=== PATIENT | female | born 1970 | race Caucasian/White ===

== ENCOUNTER → 2020-07-21 09:03 | Outpatient (BNVA) | payer OTHER, SELFPAY | PROVIDERS: PCP Internal Medicine; Referring Provider Internal Medicine; Visit Provider Nurse Practitioner | DX: K58.9 Irritable bowel syndrome, unspecified (principal); R14.0 Abdominal distension (gaseous); R10.13 Epigastric pain; M47.814 Spondylosis without myelopathy or radiculopathy, thoracic region; Z85.09 Personal history of malignant neoplasm of other digestive organs | CPT/HCPCS: 99214 ==

== ENCOUNTER → 2020-07-29 11:26 | Outpatient (BNVA) | payer OTHER, SELFPAY | PROVIDERS: Visit Provider Surgery | DX: Z80.3 Family history of malignant neoplasm of breast (principal) | CPT/HCPCS: 99203 ==

== ENCOUNTER 2020-08-08 11:00 | Outpatient (RCR) | payer OTHER, SELFPAY ==
--- NOTE | 2020-07-30 16:55 | MHC.PT.DC ---
[facility] [place] Office [place] [facility] [place] Office [address] Chloe Monteiro 140 [facility] [phone] F: [phone] F: [phone] F: [phone] F: [phone] Physical Therapy Discharge Report Diagnosis: neck pain Date of Surgery: N/A Date of Evaluation: 07/30/20 Date of Discharge: Treatments to Date: 1 Cancellations to Date: 0 No Shows to Date: 0 Discharge Status: Discharge Summary: pt presents to physical therapy with pain, decreased range of motion, decreased strength, impaired functional mobility, and impaired postural awareness. pt is a good candidate for skilled PT due to age, potential remediation of impairments, typical disease/condition progression and prognosis, comorbidities, and motivation. pt would benefit from tailored strengthening and stretching exercise program, functional training, postural re-training, neuromuscular re-education, and modalities as needed for pain. Electronically signed by: Sirisha Trejo PT, DPT Please sign and return to therapist. Thank you for your referral.
--- NOTE | 2020-08-22 08:45 | MHC.PT.DC ---
[facility] [place] Office [place] Office [place] Office [address] Gabi Monteiro 140 [facility] [phone] F: [phone] F: [phone] F: [phone] F: [phone] Physical Therapy Discharge Report Diagnosis: neck pain Date of Surgery: N/A Date of Evaluation: 07/30/20 Date of Discharge: 08/22/20 Treatments to Date: 3 Cancellations to Date: 2 No Shows to Date: 1 Discharge Status: Visit Non-compliance Discharge Summary: The patient was responding to repeated cervical retractions to address her radicular symptoms. She was also reporting a sense of instability and was shown how to perform isometrics to promote neck strengthening. She was educated extensively regarding postural adjustments, importance of compliance with HEP to reduce radicular symptoms, and lifestyle modifications to reduce pain. She has not made any further appointments to follow-up with this physical therapy plan of care in two weeks. She is discharged from this physical therapy plan of care for non-compliance. Electronically signed by: Sirisha Trejo PT, DPT Please sign and return to therapist. Thank you for your referral.
== END 2020-08-22 08:46 | disposition other institution (70) ==
LOC: HO.PT 11:00
PROVIDERS: PCP Internal Medicine; Visit Provider Internal Medicine
DX: M54.2 Cervicalgia (principal)
CPT/HCPCS: 97110; 97140; 97161

== ENCOUNTER 2020-08-14 05:34 | Emergency (ER) | payer OTHER, SELFPAY ==
--- NOTE | 2020-08-14 | ECG_ITS ---
Test Reason : PALPATATIONS Blood Pressure : / mmHG Vent. Rate : 089 BPM Atrial Rate : 089 BPM P-R Int : 138 ms QRS Dur : 072 ms QT Int : 406 ms P-R-T Axes : 063 026 046 degrees QTc Int : 493 ms Normal sinus rhythm Low voltage QRS Abnormal ECG No previous ECGs available Referred By: Kathi Bob Electronically Signed By:LYNNETTE TORRES MD
[2020-08-14 05:37] VITALS: BP 140/85; PULSE 109; RESP 20; TEMP 36.1; O2SAT 97; BMI 32.3
--- NOTE | 2020-08-14 05:59 | PC.NURSE ---
PT REPORTS 2 YEARS SOBRIETY- BEGAN BINGE DRINKING TUESDAY. LAST DRINK 1800 LAST NIGHT. REPORTS N/V. NO OBVIOUS TREMORS NOTED. CHANGING INTO HOSPITAL ATTIRE, AWAITING MD PRIMARY EVAL.
--- NOTE | 2020-08-14 06:35 | ED.ARRPALP ---
HPI - Arrhythmia/Palpitations General Chief Complaint: Arrhythmia/Palpitations Stated Complaint: Palpitations Time Seen by Provider: 08/14/20 06:34 Source: patient Mode of arrival: ambulatory Limitations: no limitations History of Present Illness MD complaint: rapid heart beat, heart racing and palpitations Onset (ago): day(s) (1) Duration: constant Severity: moderate Context: occurred during rest, occurred during exertion and other (always occurs after ETOH binge) Associated symptoms: nausea, anxiety and muscle cramps Related Data Home Medications Medication Instructions Recorded Confirmed Bifidobacterium infantis 4 mg 4 mg PO DAILY 07/18/20 07/29/20 capsule simethicone 250 mg capsule 250 mg PO BID PRN 07/18/20 07/29/20 Previous Rx's Medication Instructions Recorded fluoxetine 20 mg capsule 20 mg PO DAILY #30 cap 07/11/20 lorazepam 1 mg tablet 1 mg PO Q12H PRN 30 Days #60 tab 07/17/20 dicyclomine 10 mg capsule 10 mg PO QID 30 Days #120 cap 07/21/20 omeprazole 40 mg capsule,delayed 40 mg PO DAILY 30 Days #30 cap 07/21/20 release sucralfate 1 gram tablet 1 g PO BID 30 Days #60 tab 07/21/20 cyclobenzaprine 10 mg tablet 10 mg PO TID PRN 30 Days #90 cap 08/07/20 chlordiazepoxide HCl 50 mg PO Q6-8H PRN #14 cap 08/14/20 ondansetron 4 mg PO Q8H PRN #20 tab 08/14/20 Allergies Allergy/AdvReac Type Severity Reaction Status Date / Time morphine Allergy Unknown withdrawals Verified 07/29/20 11:43 /sweats Review of Systems Review of Systems: Constitutional : No Fever, No Chills ENT/Mouth : No sore throat, No Rhinorrhea, No Swallowing Difficulty Eyes: No Eye Pain, No Swelling, No Redness Cardiovascular : No Chest Pain, no SOB, No Orthopnea, no Edema Respiratory : No Cough, No Sputum, No Wheezing, no dyspnea Gastrointestinal : No Nausea, No Vomiting, No Diarrhea, No abdominal Pain, No Hematochezia, No Melena Genitourinary : No Dysuria, No Urinary Frequency, No Hematuria Musculoskeletal : No joint pain, No Myalgias Skin : No Skin Lesions, No rash Neuro : No Weakness, No Numbness, No Dizziness, No Headache Psych : pos Anxiety/Panic, No Depression Heme/Lymph: No Bruising, No Lymphadenopathy Endocrine : No Polyuria, No Polydipsia All other systems reviewed and are negative [facility] Past Medical History Attestation statement: The following information was validated with the patient. Medical History Bipolar 1 disorder Depression Family history of breast cancer Surgical History Hx of section Hx of colonoscopy Hx of endoscopy Hx of gastrostomy (~04/2002) Family History Family History (Updated 07/29/20 @ 12:06 by Vicky Schroeder MD) Father Esophagus cancer, Onset Age: 63 Mother Breast cancer, Onset Age: 46 Maternal Grandfather Cancer Paternal Aunt Breast cancer Maternal Aunt Breast cancer Social History Social History Alcohol intake: current Alcohol intake frequency: does not drink Alcohol type: wine and hard liquor Smoking Status: Light tobacco smoker Tobacco Type: Cigarette Use of substances other than those prescribed or required for medical reasons: No Advance Directives: No Advance Directives Information Provided: No Physical Exam Vital Signs: Vital Signs: Last Vital Signs Temp 97.0 F 08/14/20 05:37 Pulse 85 08/14/20 07:31 Resp 16 08/14/20 07:31 BP 130/72 08/14/20 07:31 Pulse Ox 99 08/14/20 07:31 Body Mass Index 32.3 Appearance: Alert. Oriented X3. No acute distress. Anxiety Eyes: Pupils equal, round and reactive to light. ENT: Pharynx normal. Neck: Normal inspection. Neck supple. CVS: Normal heart rate and rhythm. Pulses normal. Respiratory: No respiratory distress. Breath sounds normal. Abdomen: Soft and nontender. Skin: Skin warm and dry. Normal skin color. Normal skin turgor. Extremities: No lower extremity edema. No calf ttp Neuro: Oriented X 3. No motor deficit. No sensory deficit. Course Course Course Narrative: stable labs and VS - can be DC MDM - Arrhythmia/Palpitations MDM Narrative Medical decision making narrative: 50 yo female with hx of ETOH, anxiety, GERD - here after 4 days of ETOH binge and typically has palpitations and anxiety when she is coming off ETOH - this is a chronic complaint she is not toxic, will obtain basic labs, EKG, hydrate, ativan I do not suspect ACS/PE she has had this complaints for years with ETOH and today's presentation is no different Lab Data Result diagrams: 08/14/20 07:21 08/14/20 07:21 Labs: Lab Results 08/14/20 08/14/20 Range/Units 07:21 07:21 WBC 10.1 (4.8-10.8) X10*3/uL RBC 4.29 (4.20-5.50) X10*6/uL Hgb 11.8 L (12.0-16.0) g/dl Hct 35.5 L (37-47) % MCV 82.8 (80-98) fL MCH 27.5 (27.0-33.0) pg MCHC 33.2 (31.0-35.0) g/dl RDW 15.5 (11.0-16.0) % Plt Count 341 (160-400) X10*3/uL MPV 9.3 L (9.4-12.3) fL Immature Gran % (Auto) 0.3 (0.0-0.4) % Neut % (Auto) 75.2 H (45-73) % Lymph % (Auto) 18.2 L (20-40) % [place] % (Auto) 5.6 (2-11) % Eos % (Auto) 0.1 (0-4) % Baso % (Auto) 0.6 (0-2) % Lymph # (Auto) 1.8 (1.2-4.9) X10*3/uL [place] # (Auto) 0.6 (0.1-1.2) X10*3/uL Eos # (Auto) 0.0 (0.0-0.4) X10*3/uL Baso # (Auto) 0.1 (0.0-0.2) X10*3/uL Abs Immat Gran (auto) 0.03 (0.00-0.03) X10*3/uL Absolute Neuts (auto) 7.6 (2.0-8.3) X10*3/uL Absolute Nucleated RBC 0.000 (0.0-0.012) X10*3/uL Nucleated RBC % (auto) 0.0 (0.0-0.2) /100WBC Sodium 137 (135-145) mmol/L Potassium 4.5 (3.3-5.1) mmol/l Chloride 99 (96-108) mmol/L Carbon Dioxide 28 (22-29) mmol/L Anion Gap 15 (12-20) BUN 7 L (9-16) mg/dL Creatinine 0.70 (0.5-1.4) mg/dL Estim Creat Clear Calc 109.1 Estimated GFR > 60 Random Glucose 104 (60-115) mg/dL Calcium 8.4 (8.4-10.2) mg/dL Magnesium 1.7 (1.6-2.6) mg/dL ECG Data Attestation: I personally reviewed and interpreted this ECG as follows: ECG interpretation date: 08/14/20 ECG interpretation time: 07:03 Interpretation: Rate: 89 Rhythm: NSR [place]: normal Normal P waves. Normal CODEY. Normal QRS complex. ST T wave : normal qTC: prolonged - mild prior studies: no change no acute ischemia The study has been interpreted contemporaneously by me. . Discharge Plan Discharge Clinical Impression: Anxiety, Heart palpitations, Alcohol abuse Patient Disposition: Home, Self-Care Instructions: Heart Palpitations (ED), Alcohol Withdrawal (ED) Additional Instructions: return to ED for any worsening symptoms or concerns STOP DRINKING Prescriptions: New ondansetron 4 mg tablet,disintegrating 4 mg PO Q8H PRN (Reason: nausea and vomiting) Qty: 20 RF: 0 chlordiazepoxide HCl 25 mg capsule 50 mg PO Q6-8H PRN (Reason: alcohol withdrawal) Qty: 14 RF: 0 No Action fluoxetine 20 mg capsule 20 mg PO DAILY Qty: 30 RF: 3 lorazepam 1 mg tablet 1 mg PO Q12H PRN (Reason: anxiety) 30 Days Qty: 60 RF: 0 cyclobenzaprine 10 mg tablet 10 mg PO TID PRN (Reason: muscle spasm) 30 Days Qty: 90 RF: 12 Gas Relief (simethicone) 250 mg capsule 250 mg PO BID PRNRF: 0 Align 4 mg capsule 4 mg PO DAILY RF: 0 sucralfate 1 gram tablet 1 g PO BID 30 Days Qty: 60 RF: 3 dicyclomine 10 mg capsule 10 mg PO QID 30 Days Qty: 120 RF: 3 omeprazole 40 mg capsule,delayed release(DR/EC) 40 mg PO DAILY 30 Days Qty: 30 RF: 3 Referrals: Vishal Brock MD [Primary Care Provider] - 2 days ( NEEDED)
[2020-08-14 07:26] LABS: MANUAL DIFF FLAG NO
[2020-08-14 07:29] LABS: Basophils Absolute Auto 0.1 X10*3/uL (0.0-0.2); Basophils Percent Auto 0.6 % (0-2); Eosinophils Percent Auto 0.1 % (0-4); Hematocrit 35.5 % (37-47); Hemoglobin 11.8 g/dl (12.0-16.0); Imm Gran Abs Auto 0.03 X10*3/uL (0.00-0.03); Imm Gran Pct Auto 0.3 % (0.0-0.4); Lymphocytes Absolute Auto 1.8 X10*3/uL (1.2-4.9); Lymphocytes Percent Auto 18.2 % (20-40); Mean Corpuscular HGB Conc 33.2 g/dl (31.0-35.0); Mean Corpuscular Hemoglobin 27.5 pg (27.0-33.0); Mean Corpuscular Volume 82.8 fL (80-98); Mean Platelet Volume 9.3 fL (9.4-12.3); Monocytes Absolute Auto 0.6 X10*3/uL (0.1-1.2); Monocytes Percent Auto 5.6 % (2-11); Neutrophils Absolute Auto 7.6 X10*3/uL (2.0-8.3); Neutrophils Percent Auto 75.2 % (45-73); Platelet Count 341 X10*3/uL (160-400); Red Blood Count 4.29 X10*6/uL (4.20-5.50); Red Cell Distribution Width 15.5 % (11.0-16.0); White Blood Count 10.1 X10*3/uL (4.8-10.8)
[2020-08-14] MEDS: ondansetron HCL 4 MG/2 ML VIAL IVPUSH (07:29)
[2020-08-14] MEDS: 0.9 % Sodium Chloride 1,000 ML 999 ML IVCONT (07:29)
[2020-08-14] MEDS: LORazepam 2 MG/ML VIAL 1 MG IVPUSH (07:30)
[2020-08-14 07:31] VITALS: BP 130/72; PULSE 85; RESP 16; O2SAT 99
[2020-08-14 07:32] VITALS: PULSE 85
[2020-08-14] MEDS: chlordiazePOXIDE HCl 25 MG CAPSULE PO (07:46)
[2020-08-14 07:55] LABS: Anion Gap 15 (12-20); Blood Urea Nitrogen 7 mg/dL (9-16); Calcium 8.4 mg/dL (8.4-10.2); Carbon Dioxide 28 mmol/L (22-29); Chloride 99 mmol/L (96-108); Creatinine Clr Calc Pharmacy 109.1; Estimated Glomerular Filt Rate > 60; Glucose Random 104 mg/dL (60-115); Magnesium 1.7 mg/dL (1.6-2.6); Potassium 4.5 mmol/l (3.3-5.1); Sodium 137 mmol/L (135-145)
[2020-08-14 08:19] VITALS: BP 124/84; PULSE 92; RESP 16; O2SAT 99
[2020-08-14] MEDS: Magnesium Oxide 400 MG TABLET PO (08:19)
== END 2020-08-14 09:23 | disposition home or self-care (01) ==
PROVIDERS: Emergency Provider Emergency Medicine; PCP Internal Medicine
DX: R00.2 Palpitations (principal); F10.10 Alcohol abuse, uncomplicated; F41.1 Generalized anxiety disorder; F43.0 Acute stress reaction; F17.210 Nicotine dependence, cigarettes, uncomplicated; Y90.9 Presence of alcohol in blood, level not specified; Z79.899 Other long term (current) drug therapy; Z71.6 Tobacco abuse counseling
CPT/HCPCS: 36415; 80048; 83735; 85025; 93005; 96361; 96374; 96375; 99284; 99285; J2060; J2405

== ENCOUNTER 2020-09-08 13:46 | Outpatient (REF) | payer OTHER, SELFPAY ==
--- NOTE | 2020-09-08 13:50 | XR_ITS ---
EXAMINATION: XR ELBOW, LEFT CLINICAL INFORMATION: Injury of left elbow COMPARISON: None TECHNIQUE: AP, lateral, and oblique views of the left elbow. FINDINGS: There is no fracture or dislocation. Alignment is anatomic. Joint spaces are maintained. No elbow joint effusion. The soft tissues are unremarkable. XR/XR elbow LT min 3V IMPRESSION: Normal appearance of the left elbow.
== END 2020-09-08 13:47 | disposition home or self-care (01) ==
LOC: HO.HMGCX 13:46
PROVIDERS: PCP Internal Medicine; Visit Provider Nurse Practitioner Family
DX: S59.902A Unspecified injury of left elbow, initial encounter (principal)
CPT/HCPCS: 73080

== ENCOUNTER 2020-09-19 19:20 | Emergency (ER) | payer OTHER, SELFPAY ==
[2020-09-19 19:29] VITALS: BP 123/77; PULSE 84; RESP 18; TEMP 36.8; O2SAT 98; BMI 32.3
--- NOTE | 2020-09-19 19:43 | XR_ITS ---
EXAMINATION: XR CHEST CLINICAL INFORMATION: Chest pain COMPARISON: 07/29/2018 TECHNIQUE: Frontal view of the chest was obtained. FINDINGS: Stable appearance of the cardiomediastinal silhouette. Multiple wires overlie the chest. There is no consolidation. No pleural effusion or pneumothorax. XR/XR chest 1V IMPRESSION: No acute cardiopulmonary process.
--- NOTE | 2020-09-19 19:43 | ECG_ITS ---
Test Reason : PALPITATIONS Blood Pressure : / mmHG Vent. Rate : 076 BPM Atrial Rate : 076 BPM P-R Int : 144 ms QRS Dur : 076 ms QT Int : 416 ms P-R-T Axes : 035 017 044 degrees QTc Int : 468 ms Normal sinus rhythm Low voltage QRS Cannot rule out Anterior infarct , age undetermined Abnormal ECG When compared with ECG of 14-AUG-2020 06:09, No significant change was found Referred By: Aleida Hunt Electronically Signed By:Dennis Manuel
--- NOTE | 2020-09-19 19:51 | ED.CHESTPAIN ---
HPI - Chest Pain General Chief Complaint: Chest Pain Stated Complaint: chest pain Time Seen by Provider: 09/19/20 19:43 Source: patient Mode of arrival: ambulatory Limitations: no limitations History of Present Illness HPI narrative: 50-year-old female with past medical history of GERD, IBS, GIST, depression and anxiety presents with substernal chest pain and epigastric pain for the past 3 days. She is being treated for UTI with Bactrim, and states that the symptoms started to get worse after taking Bactrim medication. She does not report any palpitations, abdominal distention, dysuria, hematuria, fevers, chills, weakness, lightheadedness, and edema. MD complaint: chest pain Onset (ago): day(s) (3) Timing of current episode: episodic Onset: during rest Pain location: substernal Pain radiation: none Severity: moderate Quality: sharp Relieving factors: nothing Exacerbating factors: nothing Context: recent illness (UTI) Risk Factors Coronary artery disease risk factors: none Thoracic aortic dissection risk factors: none Related Data On Oral Contraceptives: No Home Medications Medication Instructions Recorded Confirmed Bifidobacterium infantis 4 mg 4 mg PO DAILY 07/18/20 07/29/20 capsule simethicone 250 mg capsule 250 mg PO BID PRN 07/18/20 07/29/20 lorazepam 1 mg tablet 1 mg PO Q12H PRN tab 08/18/20 cholecalciferol (vitamin D3) 25 25 mcg PO DAILY 09/08/20 mcg (1,000 unit) tablet magnesium oxide 500 mg tablet 500 mg PO DAILY 09/08/20 metoprolol succinate 50 mg 50 mg PO DAILY 09/08/20 tablet,extended release 24 hr Previous Rx's Medication Instructions Recorded fluoxetine 20 mg capsule 20 mg PO DAILY #30 cap 07/11/20 dicyclomine 10 mg capsule 10 mg PO QID 30 Days #120 cap 07/21/20 omeprazole 40 mg capsule,delayed 40 mg PO DAILY 30 Days #30 cap 07/21/20 release sucralfate 1 gram tablet 1 g PO BID 30 Days #60 tab 07/21/20 cyclobenzaprine 10 mg tablet 10 mg PO TID PRN 30 Days #90 cap 08/07/20 chlordiazepoxide HCl 50 mg PO Q6-8H PRN #14 cap 08/14/20 ondansetron 4 mg PO Q8H PRN #20 tab 08/14/20 lorazepam 1 mg tablet 1 mg PO Q12H PRN 30 Days #60 tab 08/18/20 prednisone 20 mg tablet 20 mg PO DAILY 9 Days #18 tab MDD 09/08/20 3 for 3days;2 for 3 days;1 3da phenazopyridine 100 mg tablet 100 mg PO TID PRN #6 tab 09/16/20 sulfamethoxazole 800 1 tab PO BID 7 Days #14 tab 09/16/20 mg-trimethoprim 160 mg tablet cephalexin [Keflex] 500 mg PO Q8H 5 Days #15 cap 09/19/20 Allergies Allergy/AdvReac Type Severity Reaction Status Date / Time morphine Allergy Unknown withdrawals Verified 09/19/20 19:26 /sweats Review of Systems Review of Systems: Constitutional: No Weight loss, No Fever, No Chills, No Night Sweats, No Fatigue, No Malaise ENT/Mouth: No Hearing loss, No Ear Pain, No Nasal Congestion, No Sinus Pain, No Hoarseness, No sore throat, No Rhinorrhea, No Swallowing Difficulty Eyes: No Eye Pain, No Swelling, No Redness, No Foreign Body, No Discharge, No Vision Changes Cardiovascular: pos Chest Pain, no SOB, no Dyspnea on Exertion, No Orthopnea, No Edema, No Palpitations Respiratory: No Cough, No Sputum, No Wheezing, No Smoke Exposure, No Dyspnea Gastrointestinal: No Nausea, No Vomiting, No Diarrhea, No abdominal Pain, No Hematochezia, No Melena Genitourinary: No irregular bleeding, No Dysuria, No Urinary Frequency, No Hematuria, No Urinary Incontinence, No Urgency, No Flank Pain, No Urinary Flow Changes, No Hesitancy Musculoskeletal: No joint pain, No Myalgias, No Joint Swelling Skin: No Skin Lesions, No rash Neuro: No Weakness, No Numbness, No Paresthesias, No Loss of Consciousness, No Dizziness, No Headache Psych: No Anxiety/Panic, No Depression, No SI/HI/AH/VH Heme/Lymph: No Bruising, No Bleeding,No Lymphadenopathy Endocrine: No Polyuria, No Polydipsia, No Temperature Intolerance Yes all other systems are reviewed and are negative PMFSH Past Medical History Attestation statement: The following information was validated with the patient. Medical History Bipolar 1 disorder Depression Family history of breast cancer Surgical History Hx of section Hx of colonoscopy Hx of endoscopy Hx of gastrostomy (~04/2002) Family History Family History Father Esophagus cancer, Onset Age: 63 Mother Breast cancer, Onset Age: 46 Maternal Grandfather Cancer Paternal Aunt Breast cancer Maternal Aunt Breast cancer Social History Social History Alcohol intake: current Alcohol intake frequency: does not drink Alcohol type: wine and hard liquor Smoking Status: Light tobacco smoker Tobacco Type: Cigarette Advance Directives: No Advance Directives Information Provided: No Physical Exam Vital Signs: Vital Signs: Last Vital Signs Temp 98.1 F 09/19/20 20:25 Pulse 74 09/19/20 20:25 Resp 20 09/19/20 20:25 BP 102/69 09/19/20 20:25 Pulse Ox 98 09/19/20 20:25 Body Mass Index 32.3 Appearance: Alert. Oriented X3. No acute distress. Eyes: Pupils equal, round and reactive to light. ENT: Pharynx normal. Neck: Normal inspection. Neck supple. CVS: Normal heart rate and rhythm. Pulses normal. Respiratory: No respiratory distress. Breath sounds normal. Abdomen: Soft and nontender. Skin: Skin warm and dry. Normal skin color. Normal skin turgor. Extremities: No lower extremity edema. Neuro: No motor deficit. No sensory deficit. Course Course Course Narrative: 50-year-old female presents with 3 days of chest pain that is substernal, intermittent and sharp. It is reproducible on palpation, plan of care is to rule out ACS. CBC and Chem 7 are normal, troponin is negative, patient requested something for anxiety. She does have known anxiety and has a prescription for Ativan. Urinalysis is negative she has been on Bactrim for a few days. Plan of care is to change out Bactrim to Keflex as she feels that symptoms could have started because of the abdominal distress from the Bactrim. Detailed discussion with patient regarding lab results, patient feels like it could be anxiety as well as the medications. She feels secure being discharged home, will follow up with primary care provider. Patient verbalized understanding of and agrees to plan of care discharge home. MDM - Chest Pain Differential Diagnosis Differential diagnosis: Likely pneumothorax, stable angina, atypical chest pain, st elevation myocardial infarction and chest pain Medical Records Data Attestation: I reviewed the patient's medical records. Lab Data Attestation: I reviewed the patient's lab results. Result diagrams: 09/19/20 20:19 09/19/20 20:18 Labs: Lab Results 09/19/20 09/19/20 09/19/20 Range/Units 20:18 20:18 20:18 WBC (4.8-10.8) X10*3/uL RBC (4.20-5.50) X10*6/uL Hgb (12.0-16.0) g/dl Hct (37-47) % MCV (80-98) fL MCH (27.0-33.0) pg MCHC (31.0-35.0) g/dl RDW (11.0-16.0) % Plt Count (160-400) X10*3/uL MPV (9.4-12.3) fL Immature Gran % (Auto) (0.0-0.4) % Neut % (Auto) (45-73) % Lymph % (Auto) (20-40) % [place] % (Auto) (2-11) % Eos % (Auto) (0-4) % Baso % (Auto) (0-2) % Lymph # (Auto) (1.2-4.9) X10*3/uL [place] # (Auto) (0.1-1.2) X10*3/uL Eos # (Auto) (0.0-0.4) X10*3/uL Baso # (Auto) (0.0-0.2) X10*3/uL Abs Immat Gran (auto) (0.00-0.03) X10*3/uL Absolute Neuts (auto) (2.0-8.3) X10*3/uL Absolute Nucleated RBC (0.0-0.012) X10*3/uL Nucleated RBC % (auto) (0.0-0.2) /100WBC Sodium Cancelled Potassium Cancelled Chloride Cancelled Carbon Dioxide Cancelled Anion Gap Cancelled BUN Cancelled Creatinine Cancelled Estim Creat Clear Calc Cancelled Estimated GFR Cancelled Random Glucose Cancelled Calcium Cancelled Magnesium Cancelled Troponin I High Sens < 3.5 (<3.5-17.0) ng/L Urine Color Urine Appearance Urine pH (5.0-8.0) Ur Specific [place] (1.005-1.025) Urine Protein (NEG-TRACE) MG/DL Urine Glucose (UA) (NEG) MG/DL Urine Ketones (NEG) MG/DL Urine Blood (NEG) Urine Nitrite (NEG) Ur Leukocyte Esterase (NEG) 09/19/20 09/19/20 Range/Units 20:19 20:30 WBC 7.9 (4.8-10.8) X10*3/uL RBC 3.81 L (4.20-5.50) X10*6/uL Hgb 10.4 L (12.0-16.0) g/dl Hct 31.3 L (37-47) % MCV 82.2 (80-98) fL MCH 27.3 (27.0-33.0) pg MCHC 33.2 (31.0-35.0) g/dl RDW 15.0 (11.0-16.0) % Plt Count 317 (160-400) X10*3/uL MPV 10.1 (9.4-12.3) fL Immature Gran % (Auto) 0.3 (0.0-0.4) % Neut % (Auto) 59.6 (45-73) % Lymph % (Auto) 31.1 (20-40) % [place] % (Auto) 7.0 (2-11) % Eos % (Auto) 1.4 (0-4) % Baso % (Auto) 0.6 (0-2) % Lymph # (Auto) 2.4 (1.2-4.9) X10*3/uL [place] # (Auto) 0.6 (0.1-1.2) X10*3/uL Eos # (Auto) 0.1 (0.0-0.4) X10*3/uL Baso # (Auto) 0.1 (0.0-0.2) X10*3/uL Abs Immat Gran (auto) 0.02 (0.00-0.03) X10*3/uL Absolute Neuts (auto) 4.7 (2.0-8.3) X10*3/uL Absolute Nucleated RBC 0.000 (0.0-0.012) X10*3/uL Nucleated RBC % (auto) 0.0 (0.0-0.2) /100WBC Sodium Potassium Chloride Carbon Dioxide Anion Gap BUN Creatinine Estim Creat Clear Calc Estimated GFR Random Glucose Calcium Magnesium Troponin I High Sens (<3.5-17.0) ng/L Urine Color YELLOW Urine Appearance CLEAR Urine pH 6.0 (5.0-8.0) Ur Specific [place] 1.020 (1.005-1.025) Urine Protein NEG (NEG-TRACE) MG/DL Urine Glucose (UA) NEG (NEG) MG/DL Urine Ketones NEG (NEG) MG/DL Urine Blood NEG (NEG) Urine Nitrite NEG (NEG) Ur Leukocyte Esterase NEG (NEG) Imaging Data Chest x-ray: Attestation: I personally reviewed and interpreted this imaging study as follows: Radiologist's impression: EXAMINATION: XR CHEST CLINICAL INFORMATION: Chest pain COMPARISON: 07/29/2018 TECHNIQUE: Frontal view of the chest was obtained. FINDINGS: Stable appearance of the cardiomediastinal silhouette. Multiple wires overlie the chest. There is no consolidation. No pleural effusion or pneumothorax. XR/XR chest 1V IMPRESSION: No acute cardiopulmonary process. ECG Data ECG #1: Attestation: I personally reviewed and interpreted this ECG as follows: ECG interpretation date: 09/19/20 ECG interpretation time: 19:44 Interpretation: Ventricular rate 76 beats per minute, P are 144, QRS 76, QTC 416, QTC 468, P-R-T axes 35 17 44, normal sinus rhythm, low-voltage QRS, cannot rule out anterior infarct age undetermined, abnormal EKG, when compared to prior EKGs no significant changes noted. Scores Heart Score History: -0- slightly suspicious ECG: -0- normal Age: -1- >45 - <65 Risk factory: -1- 1 or 2 risk factors Troponin: -0- < or = normal limit Score: 2 Risk: 1.7% Discharge Plan Discharge Clinical Impression: UTI (urinary tract infection), Chest pain Patient Disposition: Home, Self-Care Instructions: Adverse Drug Reaction (ED), Noncardiac Chest Pain (ED) Additional Instructions: You were evaluated for chest pain. EKG is normal, your troponins, which are cardiac enzymes, are negative. Please stop taking Bactrim. We prescribed Keflex. Please take the Keflex for 5 days for UTI that was discovered by prior provider. We are stopping the Bactrim because you believe you are having an adverse reaction to this medication Thank you for choosing this emergency department for evaluation. Please follow-up with primary care physician as needed. Return to the emergency department for any new, concerning, or worsening symptoms. Prescriptions: New cephalexin [Keflex] 500 mg capsule 500 mg PO Q8H 5 Days Qty: 15 RF: 0 No Action fluoxetine 20 mg capsule 20 mg PO DAILY Qty: 30 RF: 3 cyclobenzaprine 10 mg tablet 10 mg PO TID PRN (Reason: muscle spasm) 30 Days Qty: 90 RF: 12 lorazepam 1 mg tablet 1 mg PO Q12H PRNRF: 0 lorazepam 1 mg tablet 1 mg PO Q12H PRN (Reason: anxiety) 30 Days Qty: 60 RF: 0 sulfamethoxazole-trimethoprim [Bactrim DS] 800-160 mg tablet 1 tab PO BID 7 Days Qty: 14 RF: 0 phenazopyridine [Pyridium] 100 mg tablet 100 mg PO TID PRN (Reason: pain) Qty: 6 RF: 0 ondansetron 4 mg tablet,disintegrating 4 mg PO Q8H PRN (Reason: nausea and vomiting) Qty: 20 RF: 0 chlordiazepoxide HCl 25 mg capsule 50 mg PO Q6-8H PRN (Reason: alcohol withdrawal) Qty: 14 RF: 0 magnesium oxide 500 mg tablet 500 mg PO DAILY RF: 0 cholecalciferol (vitamin D3) 25 mcg (1,000 unit) tablet 25 mcg PO DAILY RF: 0 metoprolol succinate 50 mg tablet extended release 24 hr 50 mg PO DAILY RF: 0 prednisone 20 mg tablet 20 mg PO DAILY MDD 3 for 3days;2 for 3 days;1 3da 9 Days Qty: 18 RF: 0 Gas Relief (simethicone) 250 mg capsule 250 mg PO BID PRNRF: 0 Align 4 mg capsule 4 mg PO DAILY RF: 0 sucralfate 1 gram tablet 1 g PO BID 30 Days Qty: 60 RF: 3 dicyclomine 10 mg capsule 10 mg PO QID 30 Days Qty: 120 RF: 3 omeprazole 40 mg capsule,delayed release(DR/EC) 40 mg PO DAILY 30 Days Qty: 30 RF: 3 Interventions: ED Discharge Assessment Last Done: 09/19/20 22:27 Discharge Date/Time: 09/19/20 22:28
[2020-09-19 20:25] VITALS: BP 102/69; PULSE 74; RESP 20; TEMP 36.7; O2SAT 98
[2020-09-19 20:27] LABS: Basophils Absolute Auto 0.1 X10*3/uL (0.0-0.2); Basophils Percent Auto 0.6 % (0-2); Eosinophils Absolute Auto 0.1 X10*3/uL (0.0-0.4); Eosinophils Percent Auto 1.4 % (0-4); Hematocrit 31.3 % (37-47); Hemoglobin 10.4 g/dl (12.0-16.0); Imm Gran Abs Auto 0.02 X10*3/uL (0.00-0.03); Imm Gran Pct Auto 0.3 % (0.0-0.4); Lymphocytes Absolute Auto 2.4 X10*3/uL (1.2-4.9); Lymphocytes Percent Auto 31.1 % (20-40); MANUAL DIFF FLAG NO; Mean Corpuscular HGB Conc 33.2 g/dl (31.0-35.0); Mean Corpuscular Hemoglobin 27.3 pg (27.0-33.0); Mean Corpuscular Volume 82.2 fL (80-98); Mean Platelet Volume 10.1 fL (9.4-12.3); Monocytes Absolute Auto 0.6 X10*3/uL (0.1-1.2); Neutrophils Absolute Auto 4.7 X10*3/uL (2.0-8.3); Neutrophils Percent Auto 59.6 % (45-73); Platelet Count 317 X10*3/uL (160-400); Red Blood Count 3.81 X10*6/uL (4.20-5.50); White Blood Count 7.9 X10*3/uL (4.8-10.8)
[2020-09-19 20:44] LABS: Glucose Urine UA NEG (NEG); Leukocyte Esterase Urine NEG (NEG); Nitrite Urine NEG (NEG); Urine Blood NEG (NEG); Urine Ketones NEG (NEG); Urine Protein NEG (NEG-TRACE)
[2020-09-19 20:46] LABS: Appearance Urine CLEAR; Color Urine YELLOW
[2020-09-19 20:54] LABS: Troponin-I High Sensitivity < 3.5 ng/L (<3.5-17.0)
[2020-09-19] MEDS: LORazepam 1 MG TABLET PO (21:23)
[2020-09-19] MEDS: cephALEXin 500 MG CAPSULE PO (22:22)
== END 2020-09-19 22:28 | disposition home or self-care (01) ==
PROVIDERS: Nurse Practitioner Family; Emergency Provider Emergency Medicine; PCP Internal Medicine
DX: N39.0 Urinary tract infection, site not specified (principal); R07.9 Chest pain, unspecified; R10.13 Epigastric pain; T36.8X5A Adverse effect of other systemic antibiotics, initial encounter; Y92.009 Unspecified place in unspecified non-institutional (private) residence as the place of occurrence of the external cause; Z87.440 Personal history of urinary (tract) infections; F17.210 Nicotine dependence, cigarettes, uncomplicated
CPT/HCPCS: 36415; 71045; 81003; 84484; 85025; 93005; 99283; 99284

== ENCOUNTER 2020-10-27 11:05 | Outpatient (REF) | payer OTHER, SELFPAY ==
--- NOTE | 2020-10-27 11:21 | XR_ITS ---
EXAMINATION: CHEST AND LEFT SHOULDER X-RAY CLINICAL INFORMATION: Chest and left shoulder pain COMPARISON: Previous chest x-rays most recent September 2020 TECHNIQUE: 2 views of the chest and 3 views of the left shoulder FINDINGS: Chest: The cardiac and mediastinal contours are normal. The lungs are clear. There is no pleural effusion or thorax. There are degenerative changes of the spine. Left shoulder: Bone alignment is normal. No fracture or dislocation is seen. The joint spaces are normal. Soft tissues are normal. XR/XR shoulder LT min 2V IMPRESSION: Unremarkable chest and left shoulder x-rays
--- NOTE | 2020-10-27 11:21 | XR_ITS ---
EXAMINATION: CHEST AND LEFT SHOULDER X-RAY CLINICAL INFORMATION: Chest and left shoulder pain COMPARISON: Previous chest x-rays most recent September 2020 TECHNIQUE: 2 views of the chest and 3 views of the left shoulder FINDINGS: Chest: The cardiac and mediastinal contours are normal. The lungs are clear. There is no pleural effusion or thorax. There are degenerative changes of the spine. Left shoulder: Bone alignment is normal. No fracture or dislocation is seen. The joint spaces are normal. Soft tissues are normal. XR/XR chest 2V IMPRESSION: Unremarkable chest and left shoulder x-rays
[2020-10-27 13:58] LABS: MANUAL DIFF FLAG NO
[2020-10-27 14:03] LABS: Basophils Absolute Auto 0.1 X10*3/uL (0.0-0.2); Basophils Percent Auto 1.2 % (0-2); Eosinophils Absolute Auto 0.1 X10*3/uL (0.0-0.4); Hemoglobin 11.9 g/dl (12.0-16.0); Imm Gran Abs Auto 0.02 X10*3/uL (0.00-0.03); Imm Gran Pct Auto 0.3 % (0.0-0.4); Lymphocytes Absolute Auto 2.4 X10*3/uL (1.2-4.9); Lymphocytes Percent Auto 41.1 % (20-40); Mean Corpuscular HGB Conc 31.3 g/dl (31.0-35.0); Mean Corpuscular Hemoglobin 26.6 pg (27.0-33.0); Mean Corpuscular Volume 84.8 fL (80-98); Mean Platelet Volume 10.8 fL (9.4-12.3); Monocytes Absolute Auto 0.4 X10*3/uL (0.1-1.2); Monocytes Percent Auto 7.1 % (2-11); Neutrophils Absolute Auto 2.9 X10*3/uL (2.0-8.3); Neutrophils Percent Auto 48.3 % (45-73); Platelet Count 348 X10*3/uL (160-400); Red Blood Count 4.48 X10*6/uL (4.20-5.50); Red Cell Distribution Width 15.6 % (11.0-16.0); White Blood Count 5.9 X10*3/uL (4.8-10.8)
[2020-10-27 14:15] LABS: D Dimer 423 NG/ML
[2020-10-27 14:32] LABS: B Type Natriuretic Peptide 46 pg/mL (<100); Troponin-I High Sensitivity < 3.5 ng/L (<3.5-17.0)
[2020-10-27 14:51] LABS: Alanine Aminotransferase 14 U/L (0-31); Albumin Level 4.3 g/dL (3.5-5.0); Alkaline Phosphatase 59 U/L (39-117); Anion Gap 16 (12-20); Aspartate Amino Transferase 16 U/L (5-31); Bilirubin Total 0.3 mg/dL (0.0-1.0); Blood Urea Nitrogen 9 mg/dL (9-16); Calcium 9.6 mg/dL (8.4-10.2); Carbon Dioxide 27 mmol/L (22-29); Chloride 101 mmol/L (96-108); Estimated Glomerular Filt Rate > 60; Glucose Random 92 mg/dL (60-115); Potassium 4.6 mmol/l (3.3-5.1); Sodium 139 mmol/L (135-145); Total Protein 7.3 g/dL (6.5-8.0)
== END 2020-10-27 11:06 | disposition home or self-care (01) ==
LOC: HO.HMGCX 11:05
PROVIDERS: PCP Internal Medicine; Visit Provider Nurse Practitioner Family
DX: R07.9 Chest pain, unspecified (principal); M25.512 Pain in left shoulder
CPT/HCPCS: 36415; 71046; 73030; 80053; 83880; 84484; 85025; 85379

== ENCOUNTER 2020-10-28 10:28 | Outpatient (REF) | payer OTHER, SELFPAY ==
--- NOTE | 2020-10-28 10:36 | US_ITS ---
EXAMINATION: US VENOUS ULTRASOUND WITH DOPPLER LOWER EXTREMITY, LEFT CLINICAL INFORMATION: Left leg pain. COMPARISON: None TECHNIQUE: Ultrasound of the deep veins is performed from the hip to the calf with compression sonography and color and pulse Doppler assessment. Spectral analysis with color-flow imaging is performed. FINDINGS: There is normal venous compression and respiratory variation and augmented flow. The visualized common femoral vein, superficial femoral vein, profunda femoral vein, popliteal vein, and the trifurcation region shows no evidence of deep venous thrombosis. There is no significant popliteal fossa cyst. If the patient's symptoms persist, followup ultrasound in 5 days 7 days might be of value to exclude proximal propagation from a non-visualized calf vein. US/US venous duplex LE LT IMPRESSION: No DVT demonstrated in the left lower extremity.
== END 2020-10-28 10:29 | disposition home or self-care (01) ==
LOC: HO.HMGCX 10:28
PROVIDERS: PCP Internal Medicine; Visit Provider Nurse Practitioner Family
DX: M79.662 Pain in left lower leg (principal)
CPT/HCPCS: 93971

== ENCOUNTER 2020-11-15 14:15 | Outpatient (REF) | payer OTHER, SELFPAY ==
--- NOTE | ~2020-11-15 | MM_ITS ---
EXAMINATION: MM SCREENING DIGITAL BREAST TOMOSYNTHESIS, BILATERAL CLINICAL INFORMATION: Screening. Asymptomatic. Family history breast cancer mother age 46 and 2 aunts. The lifetime risk of breast cancer based on the Tyrer-Cuzick Model is 25%. COMPARISON: Mammography: 08/13/2019, 04/04/2017 TECHNIQUE: Digital mammography is performed in craniocaudal and mediolateral oblique views along with computer-aided detection (CAD). Digital breast tomosynthesis is performed in implant-displaced craniocaudal and implant-displaced mediolateral oblique views along with computer-aided detection (CAD). Synthesized 2D images are generated from the tomosynthesis. FINDINGS: There are scattered areas of fibroglandular density (ACR BI-RADS breast composition Category b). There are no significant masses, abnormal calcifications, or other abnormalities. There are bilateral implants. The implant contours are smooth, similar to prior exams. MM/MM tomosynthesis screen imp BI IMPRESSION: No mammographic evidence of malignancy. ASSESSMENT: BI-RADS 1: Negative RECOMMENDATION: 1. Routine annual mammography screening. 2. The lifetime risk of breast cancer based on the Tyrer-Cuzick Model is 25%. Additional annual adjunct screening with breast MRI may be of benefit in women with a risk score of 20% or greater. This patient's information was entered into a reminder system with a target due date for their next mammogram.
== END 2020-11-15 14:16 | disposition home or self-care (01) ==
LOC: HO.MAMMO 14:15
PROVIDERS: PCP Internal Medicine; Visit Provider Internal Medicine
DX: Z12.31 Encounter for screening mammogram for malignant neoplasm of breast (principal)
CPT/HCPCS: 77063; 77067

== ENCOUNTER → 2020-12-16 15:50 | Outpatient (BNVA) | payer OTHER, SELFPAY | PROVIDERS: PCP Internal Medicine; Visit Provider Nurse Practitioner ==

== ENCOUNTER 2021-01-26 07:12 | Day surgery (SDC) | payer OTHER, SELFPAY ==
[2021-01-21 14:16] VITALS: BMI 33.7
--- NOTE | 2021-01-26 07:16 | HO.ANESPROP2 ---
[facility] Active Problems Active Problems: All Active Problems (Updated 01/21/21 @ 14:11 by Maria E Dixon) Thoracic spondylosis (Acute) History of gastrointestinal stromal tumor (GIST) (Acute) Epigastric pain (Acute) Abdominal bloating (Acute) IBS (irritable bowel syndrome) (Acute) At high risk for breast cancer (Acute) GERD (gastroesophageal reflux disease) (Acute) Elbow injury (Acute) Chest pain (Acute) Calf pain (Acute) Benign essential hypertension (Acute) Low back pain (Acute) Vitamin D deficiency (Acute) Bipolar disorder (Acute) Alcoholism (Acute) Obesity (BMI 30-39.9) (Acute) Anxiety (Acute) Left shoulder pain (Acute) Family history of breast cancer (Acute) Depression (Acute) Past Medical History Medical History Alcoholism Anxiety Benign essential hypertension Bipolar 1 disorder Bipolar disorder Depression Family history of breast cancer Hx of esophageal ulcer Left shoulder pain Low back pain Obesity (BMI 30-39.9) Vitamin D deficiency Family History Family History Father Esophagus cancer, Onset Age: 63 Mother Breast cancer, Onset Age: 46 Maternal Grandfather Cancer Paternal Aunt Breast cancer Maternal Aunt Breast cancer Surgical History Surgical History History of incisional hernia repair Hx of section Hx of colonoscopy Hx of endoscopy Hx of gastrostomy (~04/2002) Hx of nasal septoplasty Social History Social History Alcohol intake: current Alcohol intake frequency: does not drink Alcohol type: wine and hard liquor Smoking Status: Light tobacco smoker Tobacco Type: Cigarette Years Smoked: rarely- occasional smoker Use of substances other than those prescribed or required for medical reasons: No Advance Directives: No Advance Directives Information Provided: Yes Recently lost weight without trying: No Meds Allergies Allergy/AdvReac Type Severity Reaction Status Date / Time morphine Allergy Unknown withdrawals Verified 12/16/20 15:50 /sweats Home Medications Medication Instructions Recorded Confirmed Last Taken Type Bifidobacterium infantis 4 mg 4 mg PO DAILY 07/18/20 01/21/21 Unknown History capsule simethicone 250 mg capsule 250 mg PO BID PRN 07/18/20 10/06/20 Unknown History lorazepam 1 mg tablet 1 mg PO Q12H PRN tab 08/18/20 01/21/21 Unknown History magnesium oxide 500 mg tablet 500 mg PO DAILY 09/08/20 10/06/20 Unknown History fluoxetine 40 mg PO DAILY 01/21/21 01/21/21 01/26/21 06:00 History Exam Exam Date and Time: January 26, 2021 0716 Height,Weight and Vital Signs: Height 5 ft 6 in Weight 94.9 kg Airway Mallampati Class: I TM Dist: >3cm Neck ROM: Full Loose/Missing/Broken Teeth: No Heart: RRR Lungs: CTA Assessment and Plan Assessment Anesthesia Assessment: Anesthesia Plan Discussed and Chart Reviewed Final Anesthetic Review NPO: Yes ASA Class: II Final Preanesthetic Review: Meds/Allgs Chart Reviewed, Consent Obtained/Reviewed and Anes Risks/Benef Reviewed Patient Risk: Low Procedure Risk: Intermediate Anesthetic Plan Anesthetic Plan: MAC: Disposition: Standard PACU
[2021-01-26 07:20] VITALS: BMI 33.0
[2021-01-26 07:32] VITALS: BP 121/78; PULSE 83; RESP 16; TEMP 36.6; O2SAT 97
[2021-01-26 07:36] LABS: UPreg QC Valid YES; Urine Pregnancy NEGATIVE (NEGATIVE)
[2021-01-26] MEDS: Lactated Ringers 1,000 ML 50 ML IV (07:39)
--- NOTE | 2021-01-26 07:39 | W.PM.OPN ---
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 Instrument: Olympus GIF H 190 mid size upper endoscope Monitoring: Vital signs and clinical assessment, continuous EKG monitoring, Pulse oximetry, Carbon Dioxide monitoring and blood pressure monitoring were done throughout the procedure. Procedure: The patient was placed in the left lateral decubitis position and pre-procedure medications were administered and a bite block was placed. The endoscope was inserted into the mouth and advanced under direct vision to the third part of duodenum. A careful inspection was made as the upper endoscope was withdrawn including a retroflexed examination of the proximal stomach; Findings and interventions are described below. Findings: Larynx: Normal Esophagus: GE junction at 34 cms, small hiatal hernia 34 to 36 cms. A 1 cm tongue of possible Blake's which was biopsied. No esophagitis noted. Stomach: Multiple 5-15 mm benign-appearing polyps in the gastric body and fundus - biopsied. Mild gastric erythema. Biopsies were obtained. Grade 3 flap valve on retroflexed examination of the cardia. Duodenum: Normal bulb and descending duodenum. Biopsies were obtained from 3rd part of the duodenum to check for celiac sprue. Intervention: Biopsies as noted above Impression and Post Procedure Diagnosis: Endoscopy Findings: ESOPHAGUS: GE junction at 34 cms, small hiatal hernia 34 to 36 cms. A 1 cm tongue of possible Blake's which was biopsied. No esophagitis noted. STOMACH: Multiple 5-15 mm benign-appearing polyps in the gastric body and fundus - biopsied. Mild gastric erythema. Biopsies were obtained. DUODENUM: Normal, biopsies to check for celiac sprue. Plan: Await pathology results Patient to schedule a FU appointment in the GI Clinic with Kimberly Will NP. Consider further evaluation with a Gastric emptying study to rule out Gastroparesis. Above findings were reviewed with the patient and GERD, Hiatal Hernia and Gastritic Polyps handouts were given in the discharge area Surgeon: Ti Summers MD Anesthesia: MAC (Dr Raya) Restrictive Preparation Operator: Lulu García Estimated blood loss (mL): 0 Pathology: other (A: SMALL BOWEL BXS R/O CELIACS B: GASTRIC ANTRUM R/O H. PYLORI C: GASTRIC POLYPS D: DISTAL ESOPHAGUS R/O BLAKE'S) Condition: stable Disposition: PACU
--- NOTE | 2021-01-26 07:39 | MHC.SHP ---
Pre-Procedural Eval Section A The patient is an INPATIENT: No The History & Physical has been completed within 30 days and I have reviewed it.: No Section B Chief Complaint: Epigastric Pain Details of Present Illness: GERD, abdominal bloating, History of gastrointestinal stromal tumor (GIST): Relevant Family History (Specify if Yes): Yes Relevant Social History: Tobacco Use Present Medications: see Short Stay Collaborative assessment Medical History: Significant History (Alcoholism Anxiety Benign essential hypertension Bipolar 1 disorder Bipolar disorder Depression Family history of breast cancer Left shoulder pain Low back pain Obesity (BMI 30-39.9) Vitamin D deficiency) History of Previous Operations: Relevant previous surgery/procedure and date(s) (Hx of section Hx of colonoscopy Hx of endoscopy Hx of gastrostomy (~04/2002)) Allergies: Allergies Allergy/AdvReac Type Severity Reaction Status Date / Time morphine Allergy Unknown withdrawals Verified 12/16/20 15:50 /sweats Review of Systems Sugical H&P ROS: Negative: Constitution, Cardiovascular and Respiratory and Yes, Specify: Gastrointestinal (Post prandial bloating, early satiety) Exam Surgical H&P Exam: Normal: Heart, Normal: Lungs, Normal: Extremities and Normal: Abdomen Plan Diagnosis/Plan: Unchanged I have reviewed the history and physical and performed a pertinent physical examination on my patient. No changes have occurred unless specified.
[2021-01-26 08:33] VITALS: BP 103/59; PULSE 87; RESP 18; TEMP 36.6; O2SAT 99
[2021-01-26 08:47] VITALS: BP 125/43; PULSE 72; RESP 16; O2SAT 97
[2021-01-26 08:52] VITALS: PULSE 78; RESP 16; O2SAT 99
== END 2021-01-26 09:23 ==
LOC: HO.SSS 07:12
PROVIDERS: Anesthesiology; PCP Internal Medicine; Visit Provider Internal Medicine Gastroenterology
PROC: 0DJ08ZZ Inspection of Upper Intestinal Tract, Via Natural or Artificial Opening Endoscopic (ICD-10-PCS; CPT 43235; principal; 2021-01-26 08:30)
DX: K29.50 Unspecified chronic gastritis without bleeding (principal); K31.7 Polyp of stomach and duodenum; K44.9 Diaphragmatic hernia without obstruction or gangrene; K21.9 Gastro-esophageal reflux disease without esophagitis; I10 Essential (primary) hypertension; E55.9 Vitamin D deficiency, unspecified; Z85.09 Personal history of malignant neoplasm of other digestive organs; Z85.01 Personal history of malignant neoplasm of esophagus; F17.210 Nicotine dependence, cigarettes, uncomplicated; Z88.8 Allergy status to other drugs, medicaments and biological substances; Z79.899 Other long term (current) drug therapy
CPT/HCPCS: 43239; 81025; 88305; 88342

== ENCOUNTER 2021-04-01 13:46 | Outpatient (REF) | payer OTHER, SELFPAY ==
[2021-04-02 08:23] LABS: BV Int Neg Control Negative (Negative); BV Int Pos Control Positive (Positive)
[2021-04-02 08:29] LABS: CT PCR NOT DETECTED (Not Detect.); NG PCR NOT DETECTED (Not Detect.)
== END 2021-04-01 13:47 | disposition home or self-care (01) ==
LOC: HO.LAB 13:46
PROVIDERS: PCP Internal Medicine; Referring Provider Internal Medicine; Visit Provider Advanced Practice Midwife
DX: Z01.411 Encounter for gynecological examination (general) (routine) with abnormal findings (principal); Z11.3 Encounter for screening for infections with a predominantly sexual mode of transmission; N92.6 Irregular menstruation, unspecified; R23.2 Flushing; R10.2 Pelvic and perineal pain; Z20.2 Contact with and (suspected) exposure to infections with a predominantly sexual mode of transmission
CPT/HCPCS: 81025; 87480; 87491; 87510; 87591; 87660

== ENCOUNTER 2021-04-08 03:51 | Emergency (ER) | payer OTHER, SELFPAY ==
[2021-04-08 04:14] VITALS: BP 131/79; PULSE 85; RESP 18; TEMP 37.1; O2SAT 97; BMI 33.5
[2021-04-08 04:34] LABS: Basophils Absolute Auto 0.1 X10*3/uL (0.0-0.2); Basophils Percent Auto 0.9 % (0-2); Eosinophils Percent Auto 0.2 % (0-4); Hematocrit 33.9 % (37-47); Hemoglobin 11.2 g/dl (12.0-16.0); Imm Gran Abs Auto 0.04 X10*3/uL (0.00-0.03); Imm Gran Pct Auto 0.5 % (0.0-0.4); Lymphocytes Absolute Auto 1.8 X10*3/uL (1.2-4.9); Lymphocytes Percent Auto 21.7 % (20-40); MANUAL DIFF FLAG NO; Mean Corpuscular Hemoglobin 26.4 pg (27.0-33.0); Mean Platelet Volume 9.5 fL (9.4-12.3); Monocytes Absolute Auto 0.3 X10*3/uL (0.1-1.2); Monocytes Percent Auto 4.1 % (2-11); Neutrophils Percent Auto 72.6 % (45-73); Platelet Count 368 X10*3/uL (160-400); Red Blood Count 4.24 X10*6/uL (4.20-5.50); Red Cell Distribution Width 15.2 % (11.0-16.0); White Blood Count 8.2 X10*3/uL (4.8-10.8)
[2021-04-08] MEDS: 0.9 % Sodium Chloride 1,000 ML 999 ML IV (04:35)
[2021-04-08] MEDS: ondansetron HCL 4 MG/2 ML VIAL IVPUSH (04:38)
[2021-04-08 05:08] LABS: Ethanol < 10 mg/dL
[2021-04-08 05:09] LABS: Anion Gap 15 (12-20); Blood Urea Nitrogen 7 mg/dL (9-16); Calcium 9.4 mg/dL (8.4-10.2); Carbon Dioxide 26 mmol/L (22-29); Chloride 102 mmol/L (96-108); Creatinine Clr Calc Pharmacy 106.7; Estimated Glomerular Filt Rate > 60; Glucose Random 106 mg/dL (60-115); Potassium 4.5 mmol/L (3.3-5.1); Sodium 138 mmol/L (135-145)
[2021-04-08 06:03] VITALS: BP 129/63; PULSE 80; RESP 16; O2SAT 98
--- NOTE | 2021-04-08 06:04 | ECG_ITS ---
Test Reason : RACING HEART Blood Pressure : / mmHG Vent. Rate : 079 BPM Atrial Rate : 079 BPM P-R Int : 142 ms QRS Dur : 080 ms QT Int : 430 ms P-R-T Axes : 031 022 045 degrees QTc Int : 493 ms Normal sinus rhythm Low voltage QRS Cannot rule out Anterior infarct (cited on or before 19-SEP-2020) Abnormal ECG When compared with ECG of 19-SEP-2020 19:44, No significant change was found Referred By: Chely Oneil Electronically Signed By:DAVID LEZAMA
--- NOTE | 2021-04-08 06:04 | ED_ITS ---
HPI - Anxiety General Chief Complaint: Anxiety Stated Complaint: Anxiety Time Seen by Provider: 04/08/21 05:55 Source: patient Mode of arrival: ambulatory Limitations: no limitations History of Present Illness HPI narrative: patient comes to the emergency room complaining of palpitations. Patient states that she relapsed drinking alcohol over the weekend playing at the [employer]. Patient does not feel that she is withdrawing from alcohol, however she is anxious because overnight she was having palpitations with no chest pain. At this time, patient has no palpitations but is complaining of nausea, denies abdominal pain, no vomiting or diarrhea Related Data Home Medications Medication Instructions Recorded Confirmed Bifidobacterium infantis 4 mg 4 mg PO DAILY 07/18/20 01/21/21 capsule simethicone 250 mg capsule 250 mg PO BID PRN 07/18/20 10/06/20 lorazepam 1 mg tablet 1 mg PO Q12H PRN tab 08/18/20 01/21/21 magnesium oxide 500 mg tablet 500 mg PO DAILY 09/08/20 10/06/20 fluoxetine 40 mg PO DAILY 01/21/21 01/21/21 meloxicam 7.5 mg tablet 7.5 mg PO DAILY 04/01/21 Previous Rx's Medication Instructions Recorded chlordiazepoxide HCl 25 mg capsule 50 mg PO Q6-8H PRN 30 Days #60 cap 10/06/20 cholecalciferol (vitamin D3) 25 25 mcg PO DAILY 90 Days #90 tab 10/06/20 mcg (1,000 unit) tablet cyclobenzaprine 10 mg tablet 10 mg PO TID PRN 30 Days #90 cap 10/06/20 dicyclomine 10 mg capsule 10 mg PO QID 30 Days #120 cap 10/06/20 metoprolol succinate 50 mg 50 mg PO DAILY 90 Days #90 tab 10/06/20 tablet,extended release 24 hr ondansetron 4 mg disintegrating 4 mg PO Q8H PRN #30 tab 10/06/20 tablet sucralfate 1 gram tablet 1 g PO BID 30 Days #60 tab 10/06/20 albuterol sulfate 90 mcg/actuation 2 puff INHALATION Q6H PRN 30 Days 11/04/20 aerosol inhaler #8.5 g prednisone 10 mg tablets in a dose See Rx Instructions PO PER PKG DIR 12/04/20 pack 8 Days #20 tab lansoprazole 30 mg capsule,delayed 30 mg PO DAILY 30 Days #30 cap 01/01/21 release lorazepam 1 mg tablet 1 mg PO Q12H PRN 30 Days #60 tab 03/10/21 Allergies Allergy/AdvReac Type Severity Reaction Status Date / Time morphine Allergy Unknown withdrawals Verified 04/01/21 14:00 /sweats Review of Systems Review of Systems: Constitutional : No Weight loss, No Fever, No Chills, No Night Sweats, No Fatigue, No Malaise ENT/Mouth : No Hearing loss, No Ear Pain, No Nasal Congestion, No Sinus Pain, No Hoarseness, No sore throat, No Rhinorrhea, No Swallowing Difficulty Eyes: No Eye Pain, No Swelling, No Redness, No Foreign Body, No Discharge, No Vision Changes Cardiovascular : No Chest Pain, No SOB, No Dyspnea on Exertion, No Orthopnea, No Edema, complaining of Palpitations Respiratory : No Cough, No Sputum, No Wheezing, No Smoke Exposure, No Dyspnea Gastrointestinal : No Nausea, No Vomiting, No Diarrhea, No Constipation, No abdominal Pain, No Hematochezia, No Melena Genitourinary : no irregular bleeding, No Dysuria, No Urinary Frequency, No Hematuria, No Urinary Incontinence, No Urgency, No Flank Pain, No Urinary Flow Changes, No Hesitancy Musculoskeletal : No joint pain, No Myalgias, No Joint Swelling Skin : No Skin Lesions, No rash Neuro : No Weakness, No Numbness, No Paresthesias, No Loss of Consciousness, No Dizziness, No Headache Psych : complaining of anxiety, No Depression, No SI/HI/AH/VH, relapsed drinking alcohol Heme/Lymph: No Bruising, No Bleeding,No Lymphadenopathy Endocrine : No Polyuria, No Polydipsia, No Temperature Intolerance [facility] Past Medical History Medical History Alcoholism Anxiety Benign essential hypertension Bipolar 1 disorder Bipolar disorder Depression Family history of breast cancer Hx of esophageal ulcer Left shoulder pain Low back pain Obesity (BMI 30-39.9) Vitamin D deficiency Surgical History History of incisional hernia repair Hx of section Hx of colonoscopy Hx of endoscopy Hx of gastrostomy (~04/2002) Hx of nasal septoplasty Family History Family History Father Esophagus cancer, Onset Age: 63 Mother Breast cancer, Onset Age: 46 Maternal Grandfather Cancer Paternal Aunt Breast cancer Maternal Aunt Breast cancer Social History Social History Alcohol intake: current Alcohol intake frequency: a few times a month Alcohol type: hard liquor Patient Tobacco Use Status: Current someday Tobacco user Years Smoked: rarely- occasional smoker Smoked in Last 30 Days: Yes Use of substances other than those prescribed or required for medical reasons: No Advance Directives: No Advance Directives Information Provided: No Patient : No Physical Exam Vital Signs: Vital Signs: Last Vital Signs Temp 98.8 F 04/08/21 04:14 Pulse 75 04/08/21 06:34 Resp 22 H 04/08/21 06:34 BP 120/62 04/08/21 06:34 Pulse Ox 97 04/08/21 06:34 Body Mass Index 33.5 Appearance: Alert. Oriented X3. No acute distress. Eyes: Pupils equal, round and reactive to light. ENT: Pharynx normal. Neck: Normal inspection. Neck supple. No lymph nodes noted. No crepitus CVS: Normal heart rate and rhythm. Pulses normal. Normal S1 and S2 Respiratory: No respiratory distress. Breath sounds normal. No Wheezing. No rales Abdomen: Soft and nontender. No rigidity. No distention. good BS x4 Skin: Skin warm and dry. Normal skin color. Normal skin turgor. Extremities: No lower extremity edema. No lower extremity edema. No Lacerations. No Rash Neuro: Oriented X 3. No motor deficit. No sensory deficit. Moving all extermities. No slurred speech. Course Course Course Narrative: patient given Ativan, feeling much better, patient is not actively withdrawing. EKG within normal limits and troponin is negative. Patient's symptoms likely secondary to anxiety. MDM - Anxiety Lab Data Result diagrams: 04/08/21 04:29 04/08/21 04:29 Labs: Lab Results 04/08/21 04/08/21 04/08/21 Range/Units 04:29 04:29 04:29 WBC 8.2 (4.8-10.8) X10*3/uL RBC 4.24 (4.20-5.50) X10*6/uL Hgb 11.2 L (12.0-16.0) g/dl Hct 33.9 L (37-47) % MCV 80.0 (80-98) fL MCH 26.4 L (27.0-33.0) pg MCHC 33.0 (31.0-35.0) g/dl RDW 15.2 (11.0-16.0) % Plt Count 368 (160-400) X10*3/uL MPV 9.5 (9.4-12.3) fL Immature Gran % (Auto) 0.5 H (0.0-0.4) % Neut % (Auto) 72.6 (45-73) % Lymph % (Auto) 21.7 (20-40) % [place] % (Auto) 4.1 (2-11) % Eos % (Auto) 0.2 (0-4) % Baso % (Auto) 0.9 (0-2) % Lymph # (Auto) 1.8 (1.2-4.9) X10*3/uL [place] # (Auto) 0.3 (0.1-1.2) X10*3/uL Eos # (Auto) 0.0 (0.0-0.4) X10*3/uL Baso # (Auto) 0.1 (0.0-0.2) X10*3/uL Abs Immat Gran (auto) 0.04 H (0.00-0.03) X10*3/uL Absolute Neuts (auto) 6.0 (2.0-8.3) X10*3/uL Absolute Nucleated RBC 0.000 (0.0-0.012) X10*3/uL Nucleated RBC % (auto) 0.0 (0.0-0.2) /100WBC Sodium 138 (135-145) mmol/L Potassium 4.5 (3.3-5.1) mmol/L Chloride 102 (96-108) mmol/L Carbon Dioxide 26 (22-29) mmol/L Anion Gap 15 (12-20) BUN 7 L (9-16) mg/dL Creatinine 0.73 (0.5-1.4) mg/dL Estim Creat Clear Calc 106.7 Estimated GFR > 60 Random Glucose 106 (60-115) mg/dL Calcium 9.4 (8.4-10.2) mg/dL Troponin I High Sens (<3.5-17.0) ng/L Ethyl Alcohol < 10 mg/dL 04/08/21 Range/Units 04:29 WBC (4.8-10.8) X10*3/uL RBC (4.20-5.50) X10*6/uL Hgb (12.0-16.0) g/dl Hct (37-47) % MCV (80-98) fL MCH (27.0-33.0) pg MCHC (31.0-35.0) g/dl RDW (11.0-16.0) % Plt Count (160-400) X10*3/uL MPV (9.4-12.3) fL Immature Gran % (Auto) (0.0-0.4) % Neut % (Auto) (45-73) % Lymph % (Auto) (20-40) % [place] % (Auto) (2-11) % Eos % (Auto) (0-4) % Baso % (Auto) (0-2) % Lymph # (Auto) (1.2-4.9) X10*3/uL [place] # (Auto) (0.1-1.2) X10*3/uL Eos # (Auto) (0.0-0.4) X10*3/uL Baso # (Auto) (0.0-0.2) X10*3/uL Abs Immat Gran (auto) (0.00-0.03) X10*3/uL Absolute Neuts (auto) (2.0-8.3) X10*3/uL Absolute Nucleated RBC (0.0-0.012) X10*3/uL Nucleated RBC % (auto) (0.0-0.2) /100WBC Sodium (135-145) mmol/L Potassium (3.3-5.1) mmol/L Chloride (96-108) mmol/L Carbon Dioxide (22-29) mmol/L Anion Gap (12-20) BUN (9-16) mg/dL Creatinine (0.5-1.4) mg/dL Estim Creat Clear Calc Estimated GFR Random Glucose (60-115) mg/dL Calcium (8.4-10.2) mg/dL Troponin I High Sens < 3.5 (<3.5-17.0) ng/L Ethyl Alcohol mg/dL ECG Data Attestation: I personally reviewed and interpreted this ECG as follows: ( [place] rhythm, heart rate 79, no ST segment depression or elevation, no T-wave inversion, QTC 193) Discharge Plan Discharge Clinical Impression: Palpitation, Anxiety Patient Disposition: Home, Self-Care Instructions: Heart Palpitations (ED), Anxiety (ED) Additional Instructions: Please follow-up with your primary care physician tomorrow. If you have any worsening or new symptoms, please return to the emergency room or call 911 Prescriptions: No Action lorazepam 1 mg tablet 1 mg PO Q12H PRN (Reason: Anxiety) RF: 0 albuterol sulfate [ProAir HFA] 90 mcg/actuation HFA aerosol inhaler 2 puff inhalation Q6H PRN (Reason: shortness of breath or wheezing) 30 Days Qty: 8.5 RF: 1 prednisone 10 mg tablets,dose pack See Rx Instructions PO PER PKG DIR 8 Days Qty: 20 RF: 0 lansoprazole [Prevacid] 30 mg capsule,delayed release(DR/EC) 30 mg PO DAILY 30 Days Qty: 30 RF: 6 lorazepam 1 mg tablet 1 mg PO Q12H PRN (Reason: anxiety) 30 Days Qty: 60 RF: 0 fluoxetine 20 mg capsule 40 mg PO DAILY RF: 0 chlordiazepoxide HCl 25 mg capsule 50 mg PO Q6-8H PRN (Reason: alcohol withdrawal) 30 Days Qty: 60 RF: 1 cholecalciferol (vitamin D3) 25 mcg (1,000 unit) tablet 25 mcg PO DAILY 90 Days Qty: 90 RF: 12 cyclobenzaprine 10 mg tablet 10 mg PO TID PRN (Reason: muscle spasm) 30 Days Qty: 90 RF: 4 dicyclomine 10 mg capsule 10 mg PO QID 30 Days Qty: 120 RF: 3 metoprolol succinate 50 mg tablet extended release 24 hr 50 mg PO DAILY 90 Days Qty: 90 RF: 3 ondansetron 4 mg tablet,disintegrating 4 mg PO Q8H PRN (Reason: nausea and vomiting) Qty: 30 RF: 0 sucralfate 1 gram tablet 1 g PO BID 30 Days Qty: 60 RF: 3 magnesium oxide 500 mg tablet 500 mg PO DAILY RF: 0 meloxicam [Mobic] 7.5 mg tablet 7.5 mg PO DAILY RF: 0 Gas Relief (simethicone) 250 mg capsule 250 mg PO BID PRNRF: 0 Align 4 mg capsule 4 mg PO DAILY RF: 0
[2021-04-08 06:32] VITALS: BP 120/62; PULSE 74; RESP 16; O2SAT 98
[2021-04-08 06:32] LABS: Troponin-I High Sensitivity < 3.5 ng/L (<3.5-17.0)
[2021-04-08 06:34] VITALS: BP 120/62; PULSE 75; RESP 22; O2SAT 97
[2021-04-08] MEDS: Prochlorperazine Edisylate 10 MG/2 ML VIAL IVPUSH (06:37)
[2021-04-08] MEDS: LORazepam 1 MG TABLET PO (06:37)
--- NOTE | 2021-04-08 07:04 | PC.NURSE ---
Peripheral iv removed and pressure bandage applied. Discharge instructions given to pt. No questions voiced.
== END 2021-04-08 07:15 | disposition home or self-care (01) ==
PROVIDERS: Emergency Provider Emergency Medicine; PCP Internal Medicine
DX: F41.9 Anxiety disorder, unspecified (principal); R00.2 Palpitations; I10 Essential (primary) hypertension; Z79.899 Other long term (current) drug therapy
CPT/HCPCS: 36415; 80048; 82077; 84484; 85025; 93005; 96361; 96374; 96375; 99284; 99285; J2405

== ENCOUNTER 2021-05-01 11:33 | Outpatient (REF) | payer OTHER, SELFPAY ==
--- NOTE | ~2021-05-01 | XR_ITS ---
EXAMINATION: XR SHOULDER, LEFT CLINICAL INFORMATION: Paresthesias of skin COMPARISON: X-rays left shoulder October 2020 TECHNIQUE: AP external rotation, Grashey, scapular Y, and axillary views of the left shoulder. FINDINGS: The bones and soft tissues are normal. No fracture. Glenohumeral and acromioclavicular alignment is anatomic with normal joint space. No abnormal soft tissue calcifications. XR/XR shoulder LT min 2V IMPRESSION: Normal left shoulder.
--- NOTE | ~2021-05-01 | XR_ITS ---
EXAMINATION: XR CERVICAL SPINE CLINICAL INFORMATION: Paresthesias of skin. COMPARISON: X-ray of the cervical spine August 2019 TECHNIQUE: Four views of the cervical spine including shoot-through lateral. FINDINGS: Vertebral bodies are normally aligned. There are persistent degenerative disc changes at C5-C6 manifested by disc space narrowing and endplate osteophytes, unchanged compared to prior. The remaining disc levels are intact and normal. XR/XR cervical spine 3V IMPRESSION: Mild spondylosis of the cervical spine, unchanged.
[2021-05-01 12:39] LABS: Cholesterol 214 mg/dL; HDL Cholesterol 55 mg/dL; LDL Cholesterol Calculated 142 mg/dl; Triglycerides 89 mg/dL
[2021-05-01 13:00] LABS: TSH reflex Free T4 1.76 uIU/mL (0.32-4.0); Vitamin D 25-OH Total 29.7 ng/mL (>30)
[2021-05-01 13:56] LABS: Folate 9.9 ng/mL (> or = 4.0); Vitamin B12 341 pg/mL (200-900)
[2021-05-01 14:15] LABS: Glucose Urine UA NEG (NEG); Leukocyte Esterase Urine NEG (NEG); Nitrite Urine NEG (NEG); Specific Gravity - Urine 1.015 (1.005-1.025); Urine Blood NEG (NEG); Urine Ketones NEG (NEG); Urine Protein NEG (NEG-TRACE)
[2021-05-01 14:19] LABS: Appearance Urine CLEAR; Color Urine YELLOW
== END 2021-05-01 11:34 | disposition home or self-care (01) ==
LOC: HO.XRAY 11:33
PROVIDERS: PCP Internal Medicine; Visit Provider Internal Medicine
DX: Z00.00 Encounter for general adult medical examination without abnormal findings (principal); R20.2 Paresthesia of skin; E53.8 Deficiency of other specified B group vitamins; E55.9 Vitamin D deficiency, unspecified; I49.9 Cardiac arrhythmia, unspecified; E78.00 Pure hypercholesterolemia, unspecified
CPT/HCPCS: 36415; 72040; 73030; 80061; 81003; 82306; 82607; 82746; 84443

== ENCOUNTER → 2021-05-15 10:15 | Outpatient (BNVA) | payer OTHER, SELFPAY | PROVIDERS: PCP Internal Medicine; Visit Provider Nurse Practitioner | DX: K21.9 Gastro-esophageal reflux disease without esophagitis (principal); R10.13 Epigastric pain; R10.33 Periumbilical pain; Z85.09 Personal history of malignant neoplasm of other digestive organs | CPT/HCPCS: 99212 ==

== ENCOUNTER 2021-05-20 08:54 | Outpatient (REF) | payer OTHER, SELFPAY ==
--- NOTE | ~2021-05-20 | US_ITS ---
EXAMINATION: US ABDOMEN LIMITED CLINICAL INFORMATION: Epigastric pain. Umbilical pain with question of hernia. COMPARISON: X-ray KUB 03/14/2019. Ultrasound abdomen 01/19/2019 [address] 06/08/2018. CT abdomen and pelvis 10/01/2017. TECHNIQUE: Real-time imaging of the area superior to the umbilicus, slight right. FINDINGS: In the area of clinical concern, no abnormality was seen. An abnormal mass or fluid collection was not detected. Patient was scanned both in the supine position as well as standing. FREE FLUID: None. US/US abdomen limited IMPRESSION: No abnormalities seen in the area of clinical concern. No hernia or fluid collection noted.
== END 2021-05-20 08:55 | disposition home or self-care (01) ==
LOC: HO.HMGCX 08:54
PROVIDERS: PCP Internal Medicine; Visit Provider Nurse Practitioner
DX: R10.13 Epigastric pain (principal); R10.33 Periumbilical pain
CPT/HCPCS: 76705

== ENCOUNTER 2021-05-21 13:21 | Outpatient (REF) | payer OTHER, SELFPAY ==
--- NOTE | ~2021-05-21 | MR_ITS ---
EXAMINATION: MR BREAST WITHOUT AND WITH CONTRAST, BILATERAL CLINICAL INFORMATION: 51-year-old for high-risk screening family history mother age 46 and 2 aunts. Lifetime risk breast cancer 25%. COMPARISON: MRI of 12/21/2017 and correlation to mammogram of 11/15/2020. TECHNIQUE: Imaging was performed with a dedicated breast coil. Prior to the administration of contrast, bilateral axial T1 and bilateral axial T2 weighted sequences were obtained. After the uneventful administration of?10 mL of Gadavist, dynamic contrast-enhanced VIBRANT series through the breasts in the axial plane were performed. Subtracted images were performed and reviewed. A delayed sagittal sequence through both breasts was acquired. Additionally, CAD post-processing, including maximum intensity projections, 3-D reconstructions and kinetic analysis, were performed an independent workstation and reviewed by the interpreting radiologist is a portion of this exam. FINDINGS: The patient's fibroglandular tissue demonstrates mild background enhancement. LEFT BREAST: There is an intact retropectoral saline implant. The surrounding tissue demonstrates moderate background enhancement with scattered foci of enhancement demonstrating subthreshold and progressive-type kinetics. There are no areas of mass or non-mass enhancements suspicious of malignancy. There are no secondary signs of malignancy. There are no additional findings on T2-weighted imaging or kinetic curve analysis. RIGHT BREAST: There is an intact retropectoral saline implant. Similar to the contralateral breast the surrounding breast tissue demonstrates moderate background enhancement with scattered foci of enhancement demonstrating subthreshold and progressive-type kinetics. There are no areas of mass or non-mass enhancement suspicious of malignancy. There are no secondary signs of malignancy. There are no additional findings on T2-weighted imaging or kinetic curve analysis. There is no suspicious internal mammary chain or axillary adenopathy. Limited views of the chest and abdomen are unremarkable. MR/MR breast BI wo/w con IMPRESSION: Intact saline implants retropectoral position. Breast parenchyma demonstrating moderate background enhancement with scattered enhancing foci. There is no significant change to the prior study. ASSESSMENT: LEFT BREAST: BI-RADS 2 benign. RIGHT BREAST: BI-RADS 2 benign. RECOMMENDATIONS: Routine mammographic imaging as per most recent study and MRI as per high risk protocol.
== END 2021-05-21 13:22 | disposition home or self-care (01) ==
LOC: HO.MRI 13:21
PROVIDERS: Visit Provider Surgery
DX: Z80.3 Family history of malignant neoplasm of breast (principal); Z91.89 Other specified personal risk factors, not elsewhere classified
CPT/HCPCS: 77049; A9585

== ENCOUNTER 2021-06-02 22:43 | Emergency (ER) | payer OTHER, SELFPAY ==
--- NOTE | 2021-06-02 | ECG_ITS ---
Test Reason : PAPITATIONS Blood Pressure : / mmHG Vent. Rate : 107 BPM Atrial Rate : 107 BPM P-R Int : 134 ms QRS Dur : 066 ms QT Int : 354 ms P-R-T Axes : 033 025 030 degrees QTc Int : 472 ms Sinus tachycardia Nonspecific ST abnormality Abnormal ECG When compared with ECG of 08-APR-2021 06:12, Nonspecific ST abnormality is now Present Heart rate has increased Referred By: Generic ED Physician Electronically Signed By:DANNI SMITH
--- NOTE | ~2021-06-02 | XR_ITS ---
EXAMINATION: XR CHEST CLINICAL INFORMATION: Palpitations COMPARISON: Chest x-ray 10/27/2020 TECHNIQUE: Frontal portable view of the chest was obtained. 11:26 PM FINDINGS: No significant abnormality is noted involving the heart, lungs, mediastinum, bony thorax or soft tissues. XR/XR chest 1V IMPRESSION: Unremarkable examination.
[2021-06-02 22:45] VITALS: BP 145/83; PULSE 111; RESP 16; TEMP 36.3; O2SAT 99; BMI 32.3
[2021-06-02 23:02] VITALS: PULSE 95
[2021-06-02 23:12] VITALS: BP 134/87; PULSE 96; RESP 16; O2SAT 97
--- NOTE | 2021-06-02 23:29 | ED_ITS ---
HPI - Arrhythmia/Palpitations General Chief Complaint: Arrhythmia/Palpitations Stated Complaint: palpitations Time Seen by Provider: 06/02/21 23:24 Source: patient Mode of arrival: ambulatory Limitations: no limitations History of Present Illness HPI narrative: 51-year-old female came in for evaluation of palpitation. This is a 51-year-old female who admitted to bingeing on drinking heavy liquor alcohol for the past 3 days, last drink was yesterday, patient since then has been feeling anxious, felt palpitations that woke her up from sleeping, no chest pain, no shortness of breath. No SI, no HI, no hallucination. Related Data Home Medications Medication Instructions Recorded Confirmed Bifidobacterium infantis 4 mg 4 mg PO DAILY 07/18/20 05/01/21 capsule (Align) simethicone 250 mg capsule (Gas 250 mg PO BID PRN 07/18/20 05/01/21 Relief (simethicone)) magnesium oxide 500 mg tablet 500 mg PO DAILY 09/08/20 05/01/21 Previous Rx's Medication Instructions Recorded chlordiazepoxide HCl 25 mg capsule 50 mg PO Q6-8H PRN 30 Days #60 cap 10/06/20 cholecalciferol (vitamin D3) 25 25 mcg PO DAILY 90 Days #90 tab 10/06/20 mcg (1,000 unit) tablet cyclobenzaprine 10 mg tablet 10 mg PO TID PRN 30 Days #90 cap 10/06/20 dicyclomine 10 mg capsule 10 mg PO QID 30 Days #120 cap 10/06/20 ondansetron 4 mg disintegrating 4 mg PO Q8H PRN #30 tab 10/06/20 tablet sucralfate 1 gram tablet 1 g PO BID 30 Days #60 tab 10/06/20 albuterol sulfate 90 mcg/actuation 2 puff INHALATION Q6H PRN 30 Days 11/04/20 aerosol inhaler (ProAir HFA) #8.5 g prednisone 10 mg tablets in a dose See Rx Instructions PO PER PKG DIR 12/04/20 pack 8 Days #20 tab lansoprazole 30 mg capsule,delayed 30 mg PO DAILY 30 Days #30 cap 01/01/21 release (Prevacid) fluoxetine 20 mg capsule 40 mg PO DAILY #60 cap 04/24/21 metoprolol succinate 50 mg 50 mg PO DAILY 90 Days #90 tab 04/24/21 tablet,extended release 24 hr lorazepam 1 mg tablet 1 mg PO Q12H PRN 90 Days #180 tab 05/01/21 meloxicam 7.5 mg tablet (Mobic) 7.5 mg PO DAILY PRN 90 Days #90 tab 05/01/21 Allergies Allergy/AdvReac Type Severity Reaction Status Date / Time morphine Allergy Unknown withdrawals Verified 05/15/21 10:21 /sweats Review of Systems 2 Review of Systems: All other systems are reviewed and are negative Constitutional: Reports as per HPI and Reports no additional constitutional complaints Eyes: Reports as per HPI and Reports no additional eye complaints Reports system reviewed and no additional complaints, except as documented Cardiovascular: Reports as per HPI and Reports no additional cardiovascular complaints Respiratory: Reports as per HPI and Reports no additional respiratory complaints Gastrointestinal: Reports as per HPI and Reports no additional gastrointestinal complaints Genitourinary: Reports no additional female genitourinary complaints Musculoskeletal: Reports no additional musculoskeletal complaints Skin/Breast: Reports system reviewed and no additional complaints, except as docu Psychiatric: Reports no additional psychiatric complaints Endocrine: Reports no additional endocrine complaints Hematologic/Lymphatic: Reports no additional hematologic/lymphatic complaints Allergic/Immunologic: Reports no additional allergic/immunologic complaints Reports system reviewed and no additional complaints, except as documented and Reports Abnormal speech present [facility] Past Medical History Medical History Alcoholism Anxiety Benign essential hypertension Bipolar 1 disorder Bipolar disorder Cardiac arrhythmia Depression Family history of breast cancer Hx of esophageal ulcer Left shoulder pain Low back pain Obesity (BMI 30-39.9) Paresthesia of left upper extremity Vitamin D deficiency Surgical History History of incisional hernia repair Hx of section Hx of colonoscopy Hx of endoscopy Hx of gastrostomy (~04/2002) Hx of nasal septoplasty Family History Family History Father Esophagus cancer, Onset Age: 63 Mother Breast cancer, Onset Age: 46 Maternal Grandfather Cancer Paternal Aunt Breast cancer Maternal Aunt Breast cancer Social History Social History Housing: House Alcohol intake: current Alcohol intake frequency: 3 or more drinks per day Alcohol type: wine and hard liquor Patient Tobacco Use Status: Current someday Tobacco user Cigarettes Per Day: 1 Years Smoked: rarely- occasional smoker Smoked in Last 30 Days: Yes Second Hand Smoke Exposure: Yes Use of substances other than those prescribed or required for medical reasons: No Advance Directives: No Advance Directives Information Provided: No service: No Current occupational status: unemployed Physical Exam Vital Signs: Vital Signs: Last Vital Signs Temp 98.9 F 06/03/21 00:40 Pulse 94 06/03/21 02:00 Resp 18 06/03/21 02:00 BP 115/62 06/03/21 00:40 Pulse Ox 100 06/03/21 02:00 Body Mass Index 32.3 Vital signs have been reviewed as appeared to be correct. Blood pressure normal. Heart rate normal. Respiration rate normal. Temperature normal. Oxygen saturation normal. Appearance: Alert. Oriented X3. No acute distress. Anxious Head: Normal external exam. Normocephalic. Atraumatic. No [place] signs noted. No raccoon eyes noted Eyes: PERRLA. EOMI. Conjunctiva and sclera normal. Eyelids normal. ENT: TM's Normal. Pharynx normal. Uvula midline. Moist mucous membranes. No trismus noted. No drooling noted. No muffled voice noted. Neck: Normal inspection. Neck supple. FROM. No adenopathy. Thyroid Normal. No meningeal signs. No neck mass noted. CVS: Normal heart rate and rhythm. Heart sound normal. No murmurs noted. Pulses normal throughout. Respiratory: No respiratory distress. Painless inspiration. Breath sounds normal. No wheezes/rales/rhonchi noted. Chest nontender. No accessory muscle usage noted or decreased air movement noted. Abdomen: Soft and nontender. Bowel sounds normal in all 4 quadrants. No distention noted. No organomegaly noted. No visible injury noted. Back: No CVA tenderness. Full range of motion noted. Skin: Skin warm and dry. Normal skin color. Normal skin turgor. No rashes/lesions/lacerations noted. Extremities: No lower extremity edema. Extremities exhibit normal range of motion. Extremities nontender. Neuro: Oriented X 3. Cranial nerve exam: II-XII are grossly intact No motor deficit. No sensory deficit. Reflexes normal. Course Course Course Narrative: Assessment and plan. 51-year-old female came in after having palpitation, also has been drinking for the past 3 days last drink was 24 hours ago, patient appear anxious with mild withdrawal symptoms. Patient with unremarkable labs, heart rate now is within normal range. Patient feels better able to tolerate p.o. intake and feel less anxious. MDM - Arrhythmia/Palpitations Medical Records Attestation: I reviewed the patient's medical records. Lab Data Attestation: I reviewed the patient's lab results. Result diagrams: 06/02/21 23:42 06/02/21 23:42 Labs: Lab Results 06/02/21 06/02/21 06/02/21 Range/Units 23:42 23:42 23:42 WBC 10.3 (4.8-10.8) X10*3/uL RBC 4.74 (4.20-5.50) X10*6/uL Hgb 12.4 (12.0-16.0) g/dl Hct 37.5 (37-47) % MCV 79.1 L (80-98) fL MCH 26.2 L (27.0-33.0) pg MCHC 33.1 (31.0-35.0) g/dl RDW 15.1 (11.0-16.0) % Plt Count 409 H (160-400) X10*3/uL MPV 9.6 (9.4-12.3) fL Immature Gran % (Auto) 0.3 (0.0-0.4) % Neut % (Auto) 68.2 (45-73) % Lymph % (Auto) 23.4 (20-40) % Barton % (Auto) 7.4 (2-11) % Eos % (Auto) 0.1 (0-4) % Baso % (Auto) 0.6 (0-2) % Lymph # (Auto) 2.4 (1.2-4.9) X10*3/uL Barton # (Auto) 0.8 (0.1-1.2) X10*3/uL Eos # (Auto) 0.0 (0.0-0.4) X10*3/uL Baso # (Auto) 0.1 (0.0-0.2) X10*3/uL Abs Immat Gran (auto) 0.03 (0.00-0.03) X10*3/uL Absolute Neuts (auto) 7.0 (2.0-8.3) X10*3/uL Absolute Nucleated RBC 0.000 (0.0-0.012) X10*3/uL Nucleated RBC % (auto) 0.0 (0.0-0.2) /100WBC Sodium 136 (135-145) mmol/L Potassium 3.9 (3.3-5.1) mmol/L Chloride 99 (96-108) mmol/L Carbon Dioxide 25 (22-29) mmol/L Anion Gap 16 (12-20) BUN 7 L (9-16) mg/dL Creatinine 0.77 (0.5-1.4) mg/dL Estim Creat Clear Calc 98.0 Estimated GFR > 60 Random Glucose 112 (60-115) mg/dL Calcium 9.5 (8.4-10.2) mg/dL Total Bilirubin 0.4 (0.0-1.0) mg/dL Direct Bilirubin 0.2 (0.0-0.5) mg/dL AST 15 (5-31) U/L ALT 13 (0-31) U/L Alkaline Phosphatase 70 (39-117) U/L Troponin I High Sens < 3.5 (<3.5-17.0) ng/L B-Natriuretic Peptide 23 (<100) pg/mL Total Protein 8.0 (6.5-8.0) g/dL Albumin 4.5 (3.5-5.0) g/dL Lipase 10 (8-78) U/L Imaging Data Chest x-ray: Radiologist's impression: Unremarkable examination. ECG Data Interpretation: Sinus tachycardia at 1 was 7 beats per minutes, normal axis deviation, normal intervals, no ST-T changes. Discharge Plan Discharge Clinical Impression: Heart palpitations, Anxiety Patient Disposition: Home, Self-Care Instructions: Heart Palpitations (ED) Prescriptions: No Action albuterol sulfate [ProAir HFA] 90 mcg/actuation HFA aerosol inhaler 2 puff inhalation Q6H PRN (Reason: shortness of breath or wheezing) 30 Days Qty: 8.5 RF: 1 prednisone 10 mg tablets,dose pack See Rx Instructions PO PER PKG DIR 8 Days Qty: 20 RF: 0 lansoprazole [Prevacid] 30 mg capsule,delayed release(DR/EC) 30 mg PO DAILY 30 Days Qty: 30 RF: 6 fluoxetine 20 mg capsule 40 mg PO DAILY Qty: 60 RF: 0 metoprolol succinate 50 mg tablet extended release 24 hr 50 mg PO DAILY 90 Days Qty: 90 RF: 3 chlordiazepoxide HCl 25 mg capsule 50 mg PO Q6-8H PRN (Reason: alcohol withdrawal) 30 Days Qty: 60 RF: 1 cholecalciferol (vitamin D3) 25 mcg (1,000 unit) tablet 25 mcg PO DAILY 90 Days Qty: 90 RF: 12 cyclobenzaprine 10 mg tablet 10 mg PO TID PRN (Reason: muscle spasm) 30 Days Qty: 90 RF: 4 dicyclomine 10 mg capsule 10 mg PO QID 30 Days Qty: 120 RF: 3 ondansetron 4 mg tablet,disintegrating 4 mg PO Q8H PRN (Reason: nausea and vomiting) Qty: 30 RF: 0 sucralfate 1 gram tablet 1 g PO BID 30 Days Qty: 60 RF: 3 magnesium oxide 500 mg tablet 500 mg PO DAILY RF: 0 meloxicam [Mobic] 7.5 mg tablet 7.5 mg PO DAILY PRN (Reason: pain) 90 Days Qty: 90 RF: 1 lorazepam 1 mg tablet 1 mg PO Q12H PRN (Reason: anxiety) 90 Days Qty: 180 RF: 0 Gas Relief (simethicone) 250 mg capsule 250 mg PO BID PRNRF: 0 Align 4 mg capsule 4 mg PO DAILY RF: 0 Referrals: Vishal Brock MD [Primary Care Provider] - 2 days
[2021-06-02] MEDS: LORazepam 2 MG/ML VIAL 1 MG IVPUSH (23:43)
[2021-06-02] MEDS: 0.9 % Sodium Chloride 1,000 ML 999 ML IVCONT (23:43)
[2021-06-02] MEDS: Magnesium Sulfate/D5W 1 GM/100 ML PIGGYBACK IV (23:44)
[2021-06-02] MEDS: Thiamine HCL 100 MG TABLET PO (23:44)
[2021-06-02 23:50] LABS: MANUAL DIFF FLAG NO
[2021-06-02 23:51] LABS: Basophils Absolute Auto 0.1 X10*3/uL (0.0-0.2); Basophils Percent Auto 0.6 % (0-2); Eosinophils Percent Auto 0.1 % (0-4); Hematocrit 37.5 % (37-47); Hemoglobin 12.4 g/dl (12.0-16.0); Imm Gran Abs Auto 0.03 X10*3/uL (0.00-0.03); Imm Gran Pct Auto 0.3 % (0.0-0.4); Lymphocytes Absolute Auto 2.4 X10*3/uL (1.2-4.9); Lymphocytes Percent Auto 23.4 % (20-40); Mean Corpuscular HGB Conc 33.1 g/dl (31.0-35.0); Mean Corpuscular Hemoglobin 26.2 pg (27.0-33.0); Mean Corpuscular Volume 79.1 fL (80-98); Mean Platelet Volume 9.6 fL (9.4-12.3); Monocytes Absolute Auto 0.8 X10*3/uL (0.1-1.2); Monocytes Percent Auto 7.4 % (2-11); Neutrophils Percent Auto 68.2 % (45-73); Platelet Count 409 X10*3/uL (160-400); Red Blood Count 4.74 X10*6/uL (4.20-5.50); Red Cell Distribution Width 15.1 % (11.0-16.0); White Blood Count 10.3 X10*3/uL (4.8-10.8)
[2021-06-03 00:07] LABS: Alanine Aminotransferase 13 U/L (0-31); Albumin Level 4.5 g/dL (3.5-5.0); Alkaline Phosphatase 70 U/L (39-117); Anion Gap 16 (12-20); Aspartate Amino Transferase 15 U/L (5-31); Bilirubin Direct 0.2 mg/dL (0.0-0.5); Bilirubin Total 0.4 mg/dL (0.0-1.0); Blood Urea Nitrogen 7 mg/dL (9-16); Calcium 9.5 mg/dL (8.4-10.2); Carbon Dioxide 25 mmol/L (22-29); Chloride 99 mmol/L (96-108); Estimated Glomerular Filt Rate > 60; Glucose Random 112 mg/dL (60-115); Lipase 10 U/L (8-78); Potassium 3.9 mmol/L (3.3-5.1); Sodium 136 mmol/L (135-145)
[2021-06-03 00:13] LABS: B Type Natriuretic Peptide 23 pg/mL (<100); Troponin-I High Sensitivity < 3.5 ng/L (<3.5-17.0)
[2021-06-03 00:40] VITALS: BP 115/62; PULSE 88; RESP 18; TEMP 37.2; O2SAT 99
[2021-06-03 02:00] VITALS: PULSE 94; RESP 18; O2SAT 100
[2021-06-03 06:00] VITALS: PULSE 94; RESP 18
== END 2021-06-03 08:37 | disposition home or self-care (01) ==
PROVIDERS: Emergency Provider Emergency Medicine; PCP Internal Medicine
DX: R00.2 Palpitations (principal); F41.9 Anxiety disorder, unspecified; F10.20 Alcohol dependence, uncomplicated; F17.210 Nicotine dependence, cigarettes, uncomplicated
CPT/HCPCS: 36415; 71045; 80048; 80076; 83690; 83880; 84484; 85025; 93005; 96365; 96375; 99284; 99285; J2060; J3475

== ENCOUNTER 2021-09-07 00:40 | Emergency (ER) | payer OTHER, SELFPAY ==
--- NOTE | 2021-09-07 | ECG_ITS ---
Test Reason : palpatation Blood Pressure : / mmHG Vent. Rate : 082 BPM Atrial Rate : 082 BPM P-R Int : 146 ms QRS Dur : 076 ms QT Int : 394 ms P-R-T Axes : 046 029 042 degrees QTc Int : 460 ms Normal sinus rhythm Low voltage QRS Borderline ECG When compared with ECG of 02-JUN-2021 22:51, No significant change was found Referred By: Generic ED Physician Electronically Signed By:Dennis Manuel
[2021-09-07 00:48] VITALS: BP 134/79; RESP 28; TEMP 36.6; O2SAT 99; BMI 32.3
--- NOTE | 2021-09-07 01:38 | ED_ITS ---
HPI - Nausea/Vomiting/Diarrhea General Chief complaint: Nausea/Vomiting/Diarrhea Stated complaint: anxiety Time Seen by Provider: 09/07/21 01:06 Source: patient Mode of arrival: ambulatory Limitations: no limitations History of Present Illness HPI Narrative: 51-year-old female who presents emergency department for e valuation nausea, vomiting, heart racing sensation, and anxiety. The patient states that she was making bottles of [place] which is a spicy, coconut based rum drink. She states that she made 6 bottles to give as presents and drink 1 cup from each bottle. She states she drank this alcohol between 11:00 a.m. and 1:00 p.m.. She then fell asleep. She states that she woke up several hours prior to coming to the emergency department and felt her heart was racing. She felt very anxious. She states that she had multiple episodes of vomiting. She states she vomited least 20 times. The patient states that she has a history of alcohol use disorder and had 10 months of sobriety. She states that her boyfriend recently broke up with her and this is made her depressed. She is living with her son and she states that her son went away for several days which is worsened her depression. She denied suicidal or homicidal ideation. She states that she currently feels like her heart is racing and she feels very anxious. She denied fever, chills, chest pain, abdominal pain, frequency, urgency, dysuria or change in her bowel movements. Related Data Home Medications Medication Instructions Recorded Confirmed Bifidobacterium infantis 4 mg 4 mg PO DAILY 07/18/20 08/29/21 capsule (Align) simethicone 250 mg capsule (Gas 250 mg PO BID PRN 07/18/20 08/29/21 Relief (simethicone)) magnesium oxide 500 mg tablet 500 mg PO DAILY 09/08/20 08/29/21 Previous Rx's Medication Instructions Recorded chlordiazepoxide HCl 25 mg capsule 50 mg PO Q6-8H PRN 30 Days #60 cap 10/06/20 cholecalciferol (vitamin D3) 25 25 mcg PO DAILY 90 Days #90 tab 10/06/20 mcg (1,000 unit) tablet cyclobenzaprine 10 mg tablet 10 mg PO TID PRN 30 Days #90 cap 10/06/20 dicyclomine 10 mg capsule 10 mg PO QID 30 Days #120 cap 10/06/20 sucralfate 1 gram tablet 1 g PO BID 30 Days #60 tab 10/06/20 albuterol sulfate 90 mcg/actuation 2 puff INHALATION Q6H PRN 30 Days 11/04/20 aerosol inhaler (ProAir HFA) #8.5 g fluoxetine 20 mg capsule 40 mg PO DAILY #60 cap 04/24/21 metoprolol succinate 50 mg 50 mg PO DAILY 90 Days #90 tab 04/24/21 tablet,extended release 24 hr meloxicam 7.5 mg tablet (Mobic) 7.5 mg PO DAILY PRN 90 Days #90 tab 05/01/21 ondansetron 4 mg disintegrating 4 mg PO Q8H PRN #10 tab 06/03/21 tablet lansoprazole 30 mg capsule,delayed 30 mg PO DAILY #30 cap 08/03/21 release lorazepam 1 mg tablet 1 mg PO Q12H PRN 90 Days #180 tab 08/26/21 ondansetron 4 mg disintegrating 4 mg PO Q6-8H PRN #14 tab 09/07/21 tablet Allergies Allergy/AdvReac Type Severity Reaction Status Date / Time morphine Allergy Unknown withdrawals Verified 08/29/21 05:02 /sweats Review of Systems Review of Systems: Yes all other systems are reviewed and are negative PMFSH Past Medical History Medical History Alcoholism Anxiety Benign essential hypertension Bipolar 1 disorder Bipolar disorder Cardiac arrhythmia Depression Family history of breast cancer Hx of esophageal ulcer Left shoulder pain Low back pain Obesity (BMI 30-39.9) Paresthesia of left upper extremity Vitamin D deficiency Surgical History History of incisional hernia repair Hx of section Hx of colonoscopy Hx of endoscopy Hx of gastrostomy (~04/2002) Hx of nasal septoplasty Family History Family History Father Esophagus cancer, Onset Age: 63 Mother Breast cancer, Onset Age: 46 Maternal Grandfather Cancer Paternal Aunt Breast cancer Maternal Aunt Breast cancer Social History Social History Housing: House Alcohol intake: current Alcohol intake frequency: holidays/special occasions only Alcohol type: wine and hard liquor Patient Tobacco Use Status: Current someday Tobacco user Cigarettes Per Day: 1 Years Smoked: rarely- occasional smoker Second Hand Smoke Exposure: Yes Advance Directives: No Advance Directives Information Provided: Yes Patient : No service: No Current occupational status: employed Physical Exam 2 Vital Signs: Vital Signs: Last Vital Signs Temp 97.8 F 09/07/21 00:48 Resp 28 H 09/07/21 00:48 BP 134/79 09/07/21 00:48 Pulse Ox 99 09/07/21 00:48 BMI result Body Mass Index 32.3 Const: Other: Very pleasant and cooperative female patient, she does appear to be anxious but she is not in any distress. HENMT: Head: Yes normal to inspection, Yes normocephalic and Yes atraumatic Ears: external ears normal General nose exam: Normal external nose present Face and sinus: Yes normal facial exam Mouth: Normal oral and palatal mucosa present Throat: Yes posterior oropharynx normal Eyes: General: appearance normal, both eyes and all related structures Pupils: Equal, round and reactive pupils present Neck: Neck: Yes normal visual inspection, Yes no lymphadenopathy, Yes trachea midline and Yes supple Chest: Chest palpation & inspection: normal inspection of the chest and normal palpation of entire chest wall Resp: Effort & Inspection: normal respiratory effort and able to speak in complete sentences Auscultation: clear to auscultation bilaterally Cardio: Rate: regular rate Rhythm: regular rhythm Heart sounds: S1 normal heart sound present, S2 normal heart sound present and no murmurs GI: Inspection: Yes normal to inspection Palpation (GI): Soft to palpation, nontender and no guarding Auscultation: normal bowel sounds : General: Yes no CVA tenderness Back/Spine/Pelvis: Back: no CVA tenderness Skin: General skin exam: no rashes or lesions noted Neuro: Cranial nerves: Yes CN's II-XII intact bilaterally and Yes Equal, round and reactive pupils present Cognition (Neuro): normal cognition Motor exam (neuro): 5/5 motor strength present throughout Extrem: General: Yes normal to inspection Psych: Appearance: grossly normal Speech and movement: Normal speech and movement present Affect: Anxious affect present Attitude: cooperative Thought process: Normal thought process present Thought content: Normal thought content present, suicidality and no homicidality Course Course Course Narrative: 51-year-old female who has a history of alcohol use disorder had 10 months of sobriety who drink 6 cups of Co[place] yesterday between 11:00 a.m. and 1:00 p.m.. She then slept until 10:00 p.m. when she woke up feeling anxious, felt her heart was racing, developed nausea vomited at least 20 times. The patient has been depressed recently secondary to break up with her boyfriend and her son going away for several days. She denied some suicidal or homicidal ideation. Initial vital signs revealed elevated respiratory rate of 28 otherwise were unremarkable. Patient does appear to be anxious. She had no abdominal tenderness. Impression is the patient probably has acute gastritis or esophagitis from drinking alcohol today. I ordered a CBC, CMP, lipase, blood alcohol level. Patient was ordered to get normal saline x1 L and Zofran 4 mg IV. 0249: Patient's laboratory evaluation was unremarkable. The patient is feeling better after the above treatment. The patient will be discharged home with printed and oral instructions on gastritis. MDM - Nausea/Vomiting/Diarrhea Lab Data Result diagrams: 09/07/21 01:57 09/07/21 01:57 Labs: Lab Results 09/07/21 09/07/21 09/07/21 Range/Units 01:57 01:57 01:57 WBC 8.7 (4.8-10.8) X10*3/uL RBC 4.49 (4.20-5.50) X10*6/uL Hgb 11.7 L (12.0-16.0) g/dl Hct 36.3 L (37.0-47.0) % MCV 80.8 (80.0-98.0) fL MCH 26.1 L (27.0-33.0) pg MCHC 32.2 (31.0-35.0) g/dl RDW 15.7 (11.0-16.0) % Plt Count 374 (160-400) X10*3/uL MPV 9.7 (9.4-12.3) fL Immature Gran % (Auto) 0.3 (0.0-0.4) % Neut % (Auto) 74.3 H (45-73) % Lymph % (Auto) 18.0 L (20-40) % [place] % (Auto) 5.5 (2-11) % Eos % (Auto) 0.9 (0-4) % Baso % (Auto) 1.0 (0-2) % Lymph # (Auto) 1.6 (1.2-4.9) X10*3/uL [place] # (Auto) 0.5 (0.1-1.2) X10*3/uL Eos # (Auto) 0.1 (0.0-0.4) X10*3/uL Baso # (Auto) 0.1 (0.0-0.2) X10*3/uL Abs Immat Gran (auto) 0.03 (0.00-0.03) X10*3/uL Absolute Neuts (auto) 6.4 (2.0-8.3) x10*3/uL Absolute Nucleated RBC 0.000 (0.0-0.012) X10*3/uL Nucleated RBC % (auto) 0.0 (0.0-0.2) /100WBC Sodium 139 (135-145) mmol/L Potassium 5.1 D (3.3-5.1) mmol/L Chloride 104 (96-108) mmol/L Carbon Dioxide 26 (22-29) mmol/L Anion Gap 14 (12-20) BUN 6 L (9-16) mg/dL Creatinine 0.77 (0.5-1.4) mg/dL Estim Creat Clear Calc 98.1 Estimated GFR > 60 Random Glucose 110 (60-115) mg/dL Calcium 9.7 (8.4-10.2) mg/dL Total Bilirubin 0.2 (0.0-1.0) mg/dL AST 18 (5-31) U/L ALT 13 (0-31) U/L Alkaline Phosphatase 62 (39-117) U/L Total Protein 7.5 (6.5-8.0) g/dL Albumin 4.2 (3.5-5.0) g/dL Lipase 6 L (8-78) U/L Ethyl Alcohol < 10 mg/dL Discharge Plan Discharge Clinical Impression: Acute dehydration Gastritis Qualifiers: Chronicity: acute Gastritis bleeding: without bleeding Vomiting Qualifiers: Vomiting type: unspecified Nausea presence: with nausea Qualified Code(s): R11.2 - Nausea with vomiting, unspecified Patient Disposition: Home, Self-Care Instructions: Gastritis (ED) Additional Instructions: Your laboratory evaluation was unremarkable. Your symptoms are consistent with inflammation of your stomach (gastritis) most likely caused by the alcohol that you drink . Take Zofran ODT 4 mg pills, 1 pill dissolved in your mouth every 8 hours as needed for nausea and vomiting. Follow-up with your doctor in 2 days. Please return to the emergency department if your symptoms get worse or if you develop any symptoms that are concerning to you. Prescriptions: New ondansetron 4 mg tablet,disintegrating 4 mg PO Q6-8H PRN (Reason: nausea and vomiting) Qty: 14 RF: 0 No Action albuterol sulfate [ProAir HFA] 90 mcg/actuation HFA aerosol inhaler 2 puff inhalation Q6H PRN (Reason: shortness of breath or wheezing) 30 Days Qty: 8.5 RF: 1 fluoxetine 20 mg capsule 40 mg PO DAILY Qty: 60 RF: 0 metoprolol succinate 50 mg tablet extended release 24 hr 50 mg PO DAILY 90 Days Qty: 90 RF: 3 lansoprazole 30 mg capsule,delayed release(DR/EC) 30 mg PO DAILY Qty: 30 RF: 6 ondansetron 4 mg tablet,disintegrating 4 mg PO Q8H PRN (Reason: nausea and vomiting) Qty: 10 RF: 0 chlordiazepoxide HCl 25 mg capsule 50 mg PO Q6-8H PRN (Reason: alcohol withdrawal) 30 Days Qty: 60 RF: 1 cholecalciferol (vitamin D3) 25 mcg (1,000 unit) tablet 25 mcg PO DAILY 90 Days Qty: 90 RF: 12 cyclobenzaprine 10 mg tablet 10 mg PO TID PRN (Reason: muscle spasm) 30 Days Qty: 90 RF: 4 dicyclomine 10 mg capsule 10 mg PO QID 30 Days Qty: 120 RF: 3 sucralfate 1 gram tablet 1 g PO BID 30 Days Qty: 60 RF: 3 magnesium oxide 500 mg tablet 500 mg PO DAILY RF: 0 lorazepam 1 mg tablet 1 mg PO Q12H PRN (Reason: anxiety) 90 Days Qty: 180 RF: 0 meloxicam [Mobic] 7.5 mg tablet 7.5 mg PO DAILY PRN (Reason: pain) 90 Days Qty: 90 RF: 1 Gas Relief (simethicone) 250 mg capsule 250 mg PO BID PRNRF: 0 Align 4 mg capsule 4 mg PO DAILY RF: 0
[2021-09-07] MEDS: ondansetron HCL 4 MG/2 ML VIAL IVPUSH (02:00)
[2021-09-07] MEDS: 0.9 % Sodium Chloride 1,000 ML 999 ML IV (02:01)
[2021-09-07 02:02] LABS: Basophils Absolute Auto 0.1 X10*3/uL (0.0-0.2); Eosinophils Absolute Auto 0.1 X10*3/uL (0.0-0.4); Eosinophils Percent Auto 0.9 % (0-4); Hematocrit 36.3 % (37.0-47.0); Hemoglobin 11.7 g/dl (12.0-16.0); Imm Gran Abs Auto 0.03 X10*3/uL (0.00-0.03); Imm Gran Pct Auto 0.3 % (0.0-0.4); Lymphocytes Absolute Auto 1.6 X10*3/uL (1.2-4.9); MANUAL DIFF FLAG NO; Mean Corpuscular HGB Conc 32.2 g/dl (31.0-35.0); Mean Corpuscular Hemoglobin 26.1 pg (27.0-33.0); Mean Corpuscular Volume 80.8 fL (80.0-98.0); Mean Platelet Volume 9.7 fL (9.4-12.3); Monocytes Absolute Auto 0.5 X10*3/uL (0.1-1.2); Monocytes Percent Auto 5.5 % (2-11); Neutrophils Absolute Auto 6.4 x10*3/uL (2.0-8.3); Neutrophils Percent Auto 74.3 % (45-73); Platelet Count 374 X10*3/uL (160-400); Red Blood Count 4.49 X10*6/uL (4.20-5.50); Red Cell Distribution Width 15.7 % (11.0-16.0); White Blood Count 8.7 X10*3/uL (4.8-10.8)
--- NOTE | 2021-09-07 02:12 | PC.NURSE ---
Pt a&o, no sob or chest pain. pt report having nausea and drinking this evening. Iv placed, medicated per Dec. Labs collected and sent.
[2021-09-07 02:20] LABS: Ethanol < 10 mg/dL
[2021-09-07 02:31] LABS: Alanine Aminotransferase 13 U/L (0-31); Albumin Level 4.2 g/dL (3.5-5.0); Alkaline Phosphatase 62 U/L (39-117); Anion Gap 14 (12-20); Aspartate Amino Transferase 18 U/L (5-31); Bilirubin Total 0.2 mg/dL (0.0-1.0); Blood Urea Nitrogen 6 mg/dL (9-16); Calcium 9.7 mg/dL (8.4-10.2); Carbon Dioxide 26 mmol/L (22-29); Chloride 104 mmol/L (96-108); Creatinine Clr Calc Pharmacy 98.1; Estimated Glomerular Filt Rate > 60; Glucose Random 110 mg/dL (60-115); Lipase 6 U/L (8-78); Potassium 5.1 mmol/L (3.3-5.1); Sodium 139 mmol/L (135-145); Total Protein 7.5 g/dL (6.5-8.0)
[2021-09-07 02:45] VITALS: RESP 20
== END 2021-09-07 03:13 | disposition home or self-care (01) ==
PROVIDERS: Emergency Provider Emergency Medicine Emergency Medical Services; PCP Internal Medicine
DX: E86.0 Dehydration (principal); K29.00 Acute gastritis without bleeding; R11.2 Nausea with vomiting, unspecified; F17.200 Nicotine dependence, unspecified, uncomplicated; F10.20 Alcohol dependence, uncomplicated; Y90.0 Blood alcohol level of less than 20 mg/100 ml
CPT/HCPCS: 36415; 80053; 82077; 83690; 85025; 93005; 96361; 96374; 99284; J2405

== ENCOUNTER 2021-09-14 06:34 | Emergency (ER) | payer OTHER, SELFPAY ==
[2021-09-14 06:41] VITALS: BP 120/88; PULSE 106; RESP 14; TEMP 36.5; O2SAT 99; BMI 32.3
--- NOTE | 2021-09-14 07:40 | ECG_ITS ---
Test Reason : abd pain Blood Pressure : / mmHG Vent. Rate : 076 BPM Atrial Rate : 076 BPM P-R Int : 138 ms QRS Dur : 078 ms QT Int : 434 ms P-R-T Axes : 026 019 032 degrees QTc Int : 488 ms Normal sinus rhythm Low voltage QRS Prolonged QT Abnormal ECG When compared with ECG of 07-SEP-2021 00:48, No significant change was found Referred By: Chely Oneil Electronically Signed By:BEST PEREZ MD
--- NOTE | 2021-09-14 07:42 | ED.NAVMDI ---
HPI - Nausea/Vomiting/Diarrhea General Chief complaint: Nausea/Vomiting/Diarrhea Stated complaint: vomiting, rising HR Time Seen by Provider: 09/14/21 06:47 Source: patient Mode of arrival: ambulatory Limitations: no limitations History of Present Illness HPI Narrative: Patient comes emergency room complaining p.o. intolerance due to vomiting, secondary to alcohol intake. Patient states that she has been drinking alcohol for the last 48 hours. Patient states that she is going through a break-up with her boyfriend. Patient states she is depressed but she is not suicidal or homicidal. Patient also feeling anxious. Patient denies abdominal pain, no diarrhea Related Data Home Medications Medication Instructions Recorded Confirmed Bifidobacterium infantis 4 mg 4 mg PO DAILY 07/18/20 08/29/21 capsule (Align) simethicone 250 mg capsule (Gas 250 mg PO BID PRN 07/18/20 08/29/21 Relief (simethicone)) magnesium oxide 500 mg tablet 500 mg PO DAILY 09/08/20 08/29/21 Previous Rx's Medication Instructions Recorded chlordiazepoxide HCl 25 mg capsule 50 mg PO Q6-8H PRN 30 Days #60 cap 10/06/20 cholecalciferol (vitamin D3) 25 25 mcg PO DAILY 90 Days #90 tab 10/06/20 mcg (1,000 unit) tablet cyclobenzaprine 10 mg tablet 10 mg PO TID PRN 30 Days #90 cap 10/06/20 dicyclomine 10 mg capsule 10 mg PO QID 30 Days #120 cap 10/06/20 sucralfate 1 gram tablet 1 g PO BID 30 Days #60 tab 10/06/20 albuterol sulfate 90 mcg/actuation 2 puff INHALATION Q6H PRN 30 Days 11/04/20 aerosol inhaler (ProAir HFA) #8.5 g fluoxetine 20 mg capsule 40 mg PO DAILY #60 cap 04/24/21 metoprolol succinate 50 mg 50 mg PO DAILY 90 Days #90 tab 04/24/21 tablet,extended release 24 hr meloxicam 7.5 mg tablet (Mobic) 7.5 mg PO DAILY PRN 90 Days #90 tab 05/01/21 ondansetron 4 mg disintegrating 4 mg PO Q8H PRN #10 tab 06/03/21 tablet lansoprazole 30 mg capsule,delayed 30 mg PO DAILY #30 cap 08/03/21 release lorazepam 1 mg tablet 1 mg PO Q12H PRN 90 Days #180 tab 08/26/21 ondansetron 4 mg disintegrating 4 mg PO Q6-8H PRN #14 tab 09/07/21 tablet prochlorperazine maleate 5 mg 5 mg PO TID PRN #10 tab 09/14/21 tablet (Compazine) Allergies Allergy/AdvReac Type Severity Reaction Status Date / Time morphine AdvReac Unknown withdrawals Verified 09/14/21 06:41 /sweats Review of Systems Review of Systems: Constitutional : No Weight loss, No Fever, No Chills, No Night Sweats, No Fatigue, No Malaise ENT/Mouth : No Hearing loss, No Ear Pain, No Nasal Congestion, No Sinus Pain, No Hoarseness, No sore throat, No Rhinorrhea, No Swallowing Difficulty Eyes: No Eye Pain, No Swelling, No Redness, No Foreign Body, No Discharge, No Vision Changes Cardiovascular : No Chest Pain, No SOB, No Dyspnea on Exertion, No Orthopnea, No Edema, No Palpitations Respiratory : No Cough, No Sputum, No Wheezing, No Smoke Exposure, No Dyspnea Gastrointestinal : Complaining of nausea and vomiting, No Diarrhea, No Constipation, No abdominal Pain, No Hematochezia, No Melena Genitourinary : no irregular bleeding, No Dysuria, No Urinary Frequency, No Hematuria, No Urinary Incontinence, No Urgency, No Flank Pain, No Urinary Flow Changes, No Hesitancy Musculoskeletal : No joint pain, No Myalgias, No Joint Swelling Skin : No Skin Lesions, No rash Neuro : No Weakness, No Numbness, No Paresthesias, No Loss of Consciousness, No Dizziness, No Headache Psych : Complaining of anxiety and depression, No SI/HI/AH/VH, No Social Issues, Heme/Lymph: No Bruising, No Bleeding,No Lymphadenopathy Endocrine : No Polyuria, No Polydipsia, No Temperature Intolerance [facility] Past Medical History Medical History Alcoholism Anxiety Benign essential hypertension Bipolar 1 disorder Bipolar disorder Cardiac arrhythmia Depression Family history of breast cancer Hx of esophageal ulcer Left shoulder pain Low back pain Obesity (BMI 30-39.9) Paresthesia of left upper extremity Vitamin D deficiency Surgical History History of incisional hernia repair Hx of section Hx of colonoscopy Hx of endoscopy Hx of gastrostomy (~04/2002) Hx of nasal septoplasty Family History Family History Father Esophagus cancer, Onset Age: 63 Mother Breast cancer, Onset Age: 46 Maternal Grandfather Cancer Paternal Aunt Breast cancer Maternal Aunt Breast cancer Social History Social History Housing: House Alcohol intake: current Alcohol intake frequency: other Alcohol type: beer and wine Patient Tobacco Use Status: Current everyday Tobacco user Cigarettes Per Day: 1 Years Smoked: rarely- occasional smoker Second Hand Smoke Exposure: Yes Use of substances other than those prescribed or required for medical reasons: No Advance Directives: No Advance Directives Information Provided: No service: No Current occupational status: employed Physical Exam Vital Signs: Vital Signs: Last Vital Signs Temp 97.7 F 09/14/21 06:41 Pulse 106 H 09/14/21 06:41 Resp 14 09/14/21 06:41 BP 120/88 09/14/21 06:41 Pulse Ox 99 09/14/21 06:41 BMI result Body Mass Index 32.3 Const: Other: Appearance: Alert. Oriented X3. No acute distress. Eyes: Pupils equal, round and reactive to light. ENT: Pharynx normal. Neck: Normal inspection. Neck supple. No lymph nodes noted. No crepitus CVS: Normal heart rate and rhythm. Pulses normal. Normal S1 and S2 Respiratory: No respiratory distress. Breath sounds normal. No Wheezing. No rales Abdomen: Soft and nontender. No rigidity. No distention. Skin: Skin warm and dry. Normal skin color. Normal skin turgor. Extremities: No lower extremity edema. No lower extremity edema. No Lacerations. No Rash Neuro: Oriented X 3. No motor deficit. No sensory deficit. Moving all extermities. No slurred speech. Cranial nerves 2-12 grossly intact Psych: Calm, cooperative, speaking coherently Course Course Course Narrative: Labs pending, patient given IV fluids, famotidine and Zofran IV for symptomatic relief and hydration. Patient was also very anxious, given 1 dose of 0.5 mg of IV Ativan. Patient's labs do not show any acute pathology. MDM - Nausea/Vomiting/Diarrhea Lab Data Result diagrams: 09/14/21 07:56 09/14/21 07:56 Labs: Lab Results 09/14/21 09/14/21 09/14/21 Range/Units 07:56 07:56 07:56 WBC 7.0 (4.8-10.8) X10*3/uL RBC 4.23 (4.20-5.50) X10*6/uL Hgb 11.0 L (12.0-16.0) g/dl Hct 34.5 L (37.0-47.0) % MCV 81.6 (80.0-98.0) fL MCH 26.0 L (27.0-33.0) pg MCHC 31.9 (31.0-35.0) g/dl RDW 15.7 (11.0-16.0) % Plt Count 329 (160-400) X10*3/uL MPV 9.4 (9.4-12.3) fL Immature Gran % (Auto) 0.4 (0.0-0.4) % Neut % (Auto) 62.7 (45-73) % Lymph % (Auto) 25.0 (20-40) % [place] % (Auto) 9.4 (2-11) % Eos % (Auto) 1.4 (0-4) % Baso % (Auto) 1.1 (0-2) % Lymph # (Auto) 1.8 (1.2-4.9) X10*3/uL [place] # (Auto) 0.7 (0.1-1.2) X10*3/uL Eos # (Auto) 0.1 (0.0-0.4) X10*3/uL Baso # (Auto) 0.1 (0.0-0.2) X10*3/uL Abs Immat Gran (auto) 0.03 (0.00-0.03) X10*3/uL Absolute Neuts (auto) 4.4 (2.0-8.3) x10*3/uL Absolute Nucleated RBC 0.000 (0.0-0.012) X10*3/uL Nucleated RBC % (auto) 0.0 (0.0-0.2) /100WBC Sodium 141 (135-145) mmol/L Potassium 4.1 (3.3-5.1) mmol/L Chloride 104 (96-108) mmol/L Carbon Dioxide 28 (22-29) mmol/L Anion Gap 13 (12-20) BUN 4 L (9-16) mg/dL Creatinine 0.82 (0.5-1.4) mg/dL Estim Creat Clear Calc 92.1 Estimated GFR > 60 Random Glucose 114 (60-115) mg/dL Calcium 9.2 (8.4-10.2) mg/dL Magnesium 1.6 (1.6-2.6) mg/dL Total Bilirubin 0.3 (0.0-1.0) mg/dL Direct Bilirubin < 0.2 (0.0-0.5) mg/dL AST 14 (5-31) U/L ALT 12 (0-31) U/L Alkaline Phosphatase 68 (39-117) U/L Troponin I High Sens < 3.5 (<3.5-17.0) ng/L Total Protein 6.9 (6.5-8.0) g/dL Albumin 3.9 (3.5-5.0) g/dL Lipase 6 L (8-78) U/L Ethyl Alcohol mg/dL 09/14/21 Range/Units 07:56 WBC (4.8-10.8) X10*3/uL RBC (4.20-5.50) X10*6/uL Hgb (12.0-16.0) g/dl Hct (37.0-47.0) % MCV (80.0-98.0) fL MCH (27.0-33.0) pg MCHC (31.0-35.0) g/dl RDW (11.0-16.0) % Plt Count (160-400) X10*3/uL MPV (9.4-12.3) fL Immature Gran % (Auto) (0.0-0.4) % Neut % (Auto) (45-73) % Lymph % (Auto) (20-40) % [place] % (Auto) (2-11) % Eos % (Auto) (0-4) % Baso % (Auto) (0-2) % Lymph # (Auto) (1.2-4.9) X10*3/uL [place] # (Auto) (0.1-1.2) X10*3/uL Eos # (Auto) (0.0-0.4) X10*3/uL Baso # (Auto) (0.0-0.2) X10*3/uL Abs Immat Gran (auto) (0.00-0.03) X10*3/uL Absolute Neuts (auto) (2.0-8.3) x10*3/uL Absolute Nucleated RBC (0.0-0.012) X10*3/uL Nucleated RBC % (auto) (0.0-0.2) /100WBC Sodium (135-145) mmol/L Potassium (3.3-5.1) mmol/L Chloride (96-108) mmol/L Carbon Dioxide (22-29) mmol/L Anion Gap (12-20) BUN (9-16) mg/dL Creatinine (0.5-1.4) mg/dL Estim Creat Clear Calc Estimated GFR Random Glucose (60-115) mg/dL Calcium (8.4-10.2) mg/dL Magnesium (1.6-2.6) mg/dL Total Bilirubin (0.0-1.0) mg/dL Direct Bilirubin (0.0-0.5) mg/dL AST (5-31) U/L ALT (0-31) U/L Alkaline Phosphatase (39-117) U/L Troponin I High Sens (<3.5-17.0) ng/L Total Protein (6.5-8.0) g/dL Albumin (3.5-5.0) g/dL Lipase (8-78) U/L Ethyl Alcohol < 10 mg/dL ECG Data Attestation: I personally reviewed and interpreted this ECG as follows: (Sinus rhythm, heart rate 76, no ST segment depression or elevation, no T-wave inversion, QTC 488) Discharge Plan Discharge Clinical Impression: Nausea & vomiting, Anxiety Patient Disposition: Home, Self-Care Instructions: Acute Nausea and Vomiting (ED), Anxiety (ED) Additional Instructions: Please follow-up with your primary care physician tomorrow. If you have any worsening or new symptoms, please return to the emergency room or call 911 Prescriptions: New prochlorperazine maleate [Compazine] 5 mg tablet 5 mg PO TID PRN (Reason: nausea and vomiting) Qty: 10 RF: 0 No Action albuterol sulfate [ProAir HFA] 90 mcg/actuation HFA aerosol inhaler 2 puff inhalation Q6H PRN (Reason: shortness of breath or wheezing) 30 Days Qty: 8.5 RF: 1 fluoxetine 20 mg capsule 40 mg PO DAILY Qty: 60 RF: 0 metoprolol succinate 50 mg tablet extended release 24 hr 50 mg PO DAILY 90 Days Qty: 90 RF: 3 lansoprazole 30 mg capsule,delayed release(DR/EC) 30 mg PO DAILY Qty: 30 RF: 6 ondansetron 4 mg tablet,disintegrating 4 mg PO Q8H PRN (Reason: nausea and vomiting) Qty: 10 RF: 0 ondansetron 4 mg tablet,disintegrating 4 mg PO Q6-8H PRN (Reason: nausea and vomiting) Qty: 14 RF: 0 chlordiazepoxide HCl 25 mg capsule 50 mg PO Q6-8H PRN (Reason: alcohol withdrawal) 30 Days Qty: 60 RF: 1 cholecalciferol (vitamin D3) 25 mcg (1,000 unit) tablet 25 mcg PO DAILY 90 Days Qty: 90 RF: 12 cyclobenzaprine 10 mg tablet 10 mg PO TID PRN (Reason: muscle spasm) 30 Days Qty: 90 RF: 4 dicyclomine 10 mg capsule 10 mg PO QID 30 Days Qty: 120 RF: 3 sucralfate 1 gram tablet 1 g PO BID 30 Days Qty: 60 RF: 3 magnesium oxide 500 mg tablet 500 mg PO DAILY RF: 0 lorazepam 1 mg tablet 1 mg PO Q12H PRN (Reason: anxiety) 90 Days Qty: 180 RF: 0 meloxicam [Mobic] 7.5 mg tablet 7.5 mg PO DAILY PRN (Reason: pain) 90 Days Qty: 90 RF: 1 Gas Relief (simethicone) 250 mg capsule 250 mg PO BID PRNRF: 0 Align 4 mg capsule 4 mg PO DAILY RF: 0
[2021-09-14 08:01] LABS: MANUAL DIFF FLAG NO
[2021-09-14 08:02] LABS: Basophils Absolute Auto 0.1 X10*3/uL (0.0-0.2); Basophils Percent Auto 1.1 % (0-2); Eosinophils Absolute Auto 0.1 X10*3/uL (0.0-0.4); Eosinophils Percent Auto 1.4 % (0-4); Hematocrit 34.5 % (37.0-47.0); Imm Gran Abs Auto 0.03 X10*3/uL (0.00-0.03); Imm Gran Pct Auto 0.4 % (0.0-0.4); Lymphocytes Absolute Auto 1.8 X10*3/uL (1.2-4.9); Mean Corpuscular HGB Conc 31.9 g/dl (31.0-35.0); Mean Corpuscular Volume 81.6 fL (80.0-98.0); Mean Platelet Volume 9.4 fL (9.4-12.3); Monocytes Absolute Auto 0.7 X10*3/uL (0.1-1.2); Monocytes Percent Auto 9.4 % (2-11); Neutrophils Absolute Auto 4.4 x10*3/uL (2.0-8.3); Neutrophils Percent Auto 62.7 % (45-73); Platelet Count 329 X10*3/uL (160-400); Red Blood Count 4.23 X10*6/uL (4.20-5.50); Red Cell Distribution Width 15.7 % (11.0-16.0)
[2021-09-14] MEDS: 0.9 % Sodium Chloride 1,000 ML 999 ML IVCONT (08:06)
[2021-09-14] MEDS: LORazepam 2 MG/ML VIAL 0.5 MG IVPUSH (08:07)
[2021-09-14] MEDS: ondansetron HCL 4 MG/2 ML VIAL IVPUSH (08:07)
[2021-09-14] MEDS: Famotidine/PF 20 MG/2 ML VIAL IVPUSH (08:07)
[2021-09-14 08:13] LABS: Ethanol < 10 mg/dL
[2021-09-14 08:18] LABS: Alanine Aminotransferase 12 U/L (0-31); Albumin Level 3.9 g/dL (3.5-5.0); Alkaline Phosphatase 68 U/L (39-117); Anion Gap 13 (12-20); Aspartate Amino Transferase 14 U/L (5-31); Bilirubin Direct < 0.2 mg/dL (0.0-0.5); Bilirubin Total 0.3 mg/dL (0.0-1.0); Blood Urea Nitrogen 4 mg/dL (9-16); Calcium 9.2 mg/dL (8.4-10.2); Carbon Dioxide 28 mmol/L (22-29); Chloride 104 mmol/L (96-108); Creatinine Clr Calc Pharmacy 92.1; Estimated Glomerular Filt Rate > 60; Glucose Random 114 mg/dL (60-115); Lipase 6 U/L (8-78); Magnesium 1.6 mg/dL (1.6-2.6); Potassium 4.1 mmol/L (3.3-5.1); Sodium 141 mmol/L (135-145); Total Protein 6.9 g/dL (6.5-8.0)
[2021-09-14 08:25] LABS: Troponin-I High Sensitivity < 3.5 ng/L (<3.5-17.0)
== END 2021-09-14 09:38 | disposition home or self-care (01) ==
PROVIDERS: Emergency Provider Emergency Medicine; PCP Internal Medicine
DX: R11.2 Nausea with vomiting, unspecified (principal); F41.9 Anxiety disorder, unspecified; I10 Essential (primary) hypertension; F10.20 Alcohol dependence, uncomplicated; Y90.0 Blood alcohol level of less than 20 mg/100 ml
CPT/HCPCS: 36415; 80048; 80076; 82077; 83690; 83735; 84484; 85025; 93005; 96361; 96374; 96375; 99284; J2060; J2405

== ENCOUNTER → 2021-10-09 10:51 | Outpatient (REF) | payer OTHER, SELFPAY ==
--- NOTE | 2021-10-09 10:54 | HM_ITS ---
Conclusion: 1. Patient was monitored for total period of 2 days and 19 hours. 2. Baseline was normal sinus rhythm with average heart rate of 74 beats per minute 3. No significant pauses or bradycardia noted 4. Six short episodes of SVT noted with longest episode lasting 5 beats. 5. Rare ectopy noted with total burden of 0.08% of PVCs 6. Patient reported event correlated with sinus rhythm MTDD
== END ==
LOC: HO.CARD 10:51
PROVIDERS: Visit Provider Internal Medicine
DX: I49.9 Cardiac arrhythmia, unspecified (principal)
CPT/HCPCS: 93242

== ENCOUNTER 2021-11-09 16:02 | Outpatient (REF) | payer OTHER, SELFPAY ==
--- NOTE | ~2021-11-09 | XR_ITS ---
EXAMINATION: XR KNEE, RIGHT CLINICAL INFORMATION: Pain in the right knee. COMPARISON: None. TECHNIQUE: 3 views of the right knee. FINDINGS: Tiny marginal osteophytes. Joint spaces are well-preserved. Bone mineralization is normal. No joint effusion. Soft tissues are unremarkable. No fracture or malalignment. XR/XR knee RT 3V IMPRESSION: Very subtle degenerative findings in the right knee, suggesting minimal osteoarthritis. Otherwise unremarkable radiographs of the right knee.
== END 2021-11-09 16:03 | disposition home or self-care (01) ==
LOC: HO.XRAY 16:02
PROVIDERS: PCP Internal Medicine; Visit Provider Internal Medicine
DX: M25.561 Pain in right knee (principal)
CPT/HCPCS: 73562

== ENCOUNTER 2021-11-23 13:21 | Emergency (ER) | payer OTHER, SELFPAY ==
--- NOTE | ~2021-11-23 | XR_ITS ---
EXAMINATION: XR CHEST CLINICAL INFORMATION: Palpitations. COMPARISON: Chest 06/02/2021 TECHNIQUE: Frontal view of the chest was obtained. FINDINGS: No significant abnormality is noted involving the heart, lungs, mediastinum, bony thorax or soft tissues. XR/XR chest 1V IMPRESSION: Unremarkable chest examination.
[2021-11-23 13:37] VITALS: BP 113/72; PULSE 84; RESP 18; TEMP 37.2; O2SAT 97; BMI 32.3
--- NOTE | 2021-11-23 13:46 | ECG_ITS ---
Test Reason : ARRYTHMIA Blood Pressure : / mmHG Vent. Rate : 071 BPM Atrial Rate : 071 BPM P-R Int : 132 ms QRS Dur : 076 ms QT Int : 406 ms P-R-T Axes : 040 030 055 degrees QTc Int : 441 ms Normal sinus rhythm Low voltage QRS Borderline ECG When compared with ECG of 14-SEP-2021 08:32, No significant change was found Referred By: Generic ED Physician Electronically Signed By:DAVID LEZAMA
[2021-11-23 14:16] LABS: MANUAL DIFF FLAG NO
[2021-11-23 14:17] LABS: Basophils Absolute Auto 0.1 X10*3/uL (0.0-0.2); Basophils Percent Auto 0.6 % (0-2); Eosinophils Percent Auto 0.1 % (0-4); Hematocrit 33.1 % (37.0-47.0); Hemoglobin 10.7 g/dl (12.0-16.0); Imm Gran Abs Auto 0.03 X10*3/uL (0.00-0.03); Imm Gran Pct Auto 0.3 % (0.0-0.4); Lymphocytes Absolute Auto 1.5 X10*3/uL (1.2-4.9); Lymphocytes Percent Auto 17.3 % (20-40); Mean Corpuscular HGB Conc 32.3 g/dl (31.0-35.0); Mean Corpuscular Hemoglobin 26.1 pg (27.0-33.0); Mean Corpuscular Volume 80.7 fL (80.0-98.0); Mean Platelet Volume 9.8 fL (9.4-12.3); Monocytes Absolute Auto 0.5 X10*3/uL (0.1-1.2); Monocytes Percent Auto 5.6 % (2-11); Neutrophils Absolute Auto 6.5 x10*3/uL (2.0-8.3); Neutrophils Percent Auto 76.1 % (45-73); Platelet Count 339 X10*3/uL (160-400); Red Cell Distribution Width 15.6 % (11.0-16.0); White Blood Count 8.6 X10*3/uL (4.8-10.8)
[2021-11-23 14:30] LABS: Anion Gap 12 (12-20); Blood Urea Nitrogen 9 mg/dL (9-16); Calcium 9.3 mg/dL (8.4-10.2); Carbon Dioxide 27 mmol/L (22-29); Chloride 103 mmol/L (96-108); Creatinine Clr Calc Pharmacy 109.5; Estimated Glomerular Filt Rate > 60; Glucose Random 104 mg/dL (60-115); Potassium 4.7 mmol/L (3.3-5.1); Sodium 137 mmol/L (135-145)
[2021-11-23 14:36] LABS: Troponin-I High Sensitivity < 3.5 ng/L (<3.5-17.0)
== END 2021-11-23 19:38 | disposition left against medical advice (07) ==
PROVIDERS: Emergency Provider Emergency Medicine; PCP Internal Medicine
DX: R00.2 Palpitations (principal); R11.10 Vomiting, unspecified; Z79.899 Other long term (current) drug therapy
CPT/HCPCS: 36415; 71045; 80048; 84484; 85025; 93005; 99283; 99284

== ENCOUNTER 2021-12-25 10:56 | Outpatient (REF) | payer OTHER, SELFPAY ==
--- NOTE | ~2021-12-25 | MM_ITS ---
EXAMINATION: MM SCREENING DIGITAL BREAST TOMOSYNTHESIS, BILATERAL CLINICAL INFORMATION: Screening. Asymptomatic. The lifetime risk of breast cancer based on the Tyrer-Cuzick Model is 25%. COMPARISON: Mammography: 11/15/2020, 08/13/2019, 04/04/2017 TECHNIQUE: Digital mammography is performed in craniocaudal and mediolateral oblique views along with computer-aided detection (CAD). Digital breast tomosynthesis is performed in implant-displaced craniocaudal and implant-displaced mediolateral oblique views along with computer-aided detection (CAD). Synthesized 2D images are generated from the tomosynthesis. FINDINGS: There are scattered areas of fibroglandular density (ACR BI-RADS breast composition Category b). There are no significant masses, abnormal calcifications, or other abnormalities. There are bilateral implants. Implant contours are smooth and similar to prior studies. Parenchymal pattern is similar to prior studies. No developing density. No significant changes. MM/MM tomosynthesis screen imp BI IMPRESSION: No mammographic evidence of malignancy. ASSESSMENT: BI-RADS 1: Negative RECOMMENDATION: 1. Routine annual mammography screening. 2. The lifetime risk of breast cancer based on the Tyrer-Cuzick Model is 25%. Additional annual adjunct screening with breast MRI may be of benefit in women with a risk score of 20% or greater. This patient's information was entered into a reminder system with a target due date for their next mammogram.
== END 2021-12-25 10:57 | disposition home or self-care (01) ==
LOC: HO.MAMMO 10:56
PROVIDERS: Visit Provider Internal Medicine
DX: Z12.31 Encounter for screening mammogram for malignant neoplasm of breast (principal)
CPT/HCPCS: 77063; 77067

== ENCOUNTER 2022-01-06 09:15 | Emergency (ER) | payer OTHER, SELFPAY ==
--- NOTE | 2022-01-06 | ECG_ITS ---
Test Reason : ETOH Blood Pressure : / mmHG Vent. Rate : 074 BPM Atrial Rate : 074 BPM P-R Int : 138 ms QRS Dur : 080 ms QT Int : 418 ms P-R-T Axes : 028 021 050 degrees QTc Int : 463 ms Normal sinus rhythm Low voltage QRS Borderline ECG When compared with ECG of 23-NOV-2021 14:00, No significant change was found Referred By: Generic ED Physician Electronically Signed By:BEST PEREZ MD
[2022-01-06 09:17] VITALS: BP 121/68; PULSE 84; RESP 18; TEMP 36.7; O2SAT 99; BMI 32.3
--- NOTE | 2022-01-06 11:47 | ED.ALCOHOL ---
HPI - Alcohol General Chief Complaint: ETOH/Substance Use Stated Complaint: etoh w/ heat meadicine Time Seen by Provider: 01/06/22 11:37 Source: patient Mode of arrival: ambulatory Limitations: no limitations History of Present Illness HPI narrative: Patient comes to the emergency room complaining of chest pressure, palpitations, anxiety. Patient states that she has been drinking 10 times per day, patient states that she is looking for help to stop drinking. Patient states that this morning she started having palpitations around 05:00. Patient drank alcohol just before arriving to the emergency room Related Data Home Medications Medication Instructions Recorded Confirmed Bifidobacterium infantis 4 mg 4 mg PO DAILY 07/18/20 08/29/21 capsule (Align) simethicone 250 mg capsule (Gas 250 mg PO BID PRN 07/18/20 08/29/21 Relief (simethicone)) Previous Rx's Medication Instructions Recorded chlordiazepoxide HCl 25 mg capsule 50 mg PO Q6-8H PRN 30 Days #60 cap 10/06/20 cyclobenzaprine 10 mg tablet 10 mg PO TID PRN 30 Days #90 cap 10/06/20 dicyclomine 10 mg capsule 10 mg PO QID 30 Days #120 cap 10/06/20 sucralfate 1 gram tablet 1 g PO BID 30 Days #60 tab 10/06/20 albuterol sulfate 90 mcg/actuation 2 puff INHALATION Q6H PRN 30 Days 11/04/20 aerosol inhaler (ProAir HFA) #8.5 g meloxicam 7.5 mg tablet (Mobic) 7.5 mg PO DAILY PRN 90 Days #90 tab 05/01/21 ondansetron 4 mg disintegrating 4 mg PO Q8H PRN #10 tab 06/03/21 tablet lansoprazole 30 mg capsule,delayed 30 mg PO DAILY #30 cap 08/03/21 release ondansetron 4 mg disintegrating 4 mg PO Q6-8H PRN #14 tab 09/07/21 tablet prochlorperazine maleate 5 mg 5 mg PO TID PRN #10 tab 09/14/21 tablet (Compazine) magnesium oxide 500 mg tablet 500 mg PO DAILY #90 tab 09/20/21 cholecalciferol (vitamin D3) 25 25 mcg PO DAILY 90 Days #90 tab 10/30/21 mcg (1,000 unit) tablet fluoxetine 20 mg capsule 20 mg PO DAILY #90 cap 10/30/21 metoprolol succinate 50 mg 50 mg PO DAILY 90 Days #90 tab 10/30/21 tablet,extended release 24 hr lorazepam 1 mg tablet 1 mg PO Q12H PRN 90 Days #180 tab 12/07/21 naltrexone 50 mg tablet 50 mg PO DAILY #30 tab 01/06/22 Allergies Allergy/AdvReac Type Severity Reaction Status Date / Time morphine AdvReac Unknown withdrawals Verified 11/23/21 13:37 /sweats Review of Systems Review of Systems: Constitutional : No Weight loss, No Fever, No Chills, No Night Sweats, No Fatigue, No Malaise ENT/Mouth : No Hearing loss, No Ear Pain, No Nasal Congestion, No Sinus Pain, No Hoarseness, No sore throat, No Rhinorrhea, No Swallowing Difficulty Eyes: No Eye Pain, No Swelling, No Redness, No Foreign Body, No Discharge, No Vision Changes Cardiovascular : Complaining of chest pressure but No Chest Pain, No SOB, No Dyspnea on Exertion, No Orthopnea, No Edema, complaining of intermittent Palpitations Respiratory : No Cough, No Sputum, No Wheezing, No Smoke Exposure, No Dyspnea Gastrointestinal : No Nausea, No Vomiting, No Diarrhea, No Constipation, No abdominal Pain, No Hematochezia, No Melena Genitourinary : no irregular bleeding, No Dysuria, No Urinary Frequency, No Hematuria, No Urinary Incontinence, No Urgency, No Flank Pain, No Urinary Flow Changes, No Hesitancy Musculoskeletal : No joint pain, No Myalgias, No Joint Swelling Skin : No Skin Lesions, No rash Neuro : No Weakness, No Numbness, No Paresthesias, No Loss of Consciousness, No Dizziness, No Headache Psych : Complaining of anxiety, No Depression, No SI/HI/AH/VH, No Social Issues, Heme/Lymph: No Bruising, No Bleeding,No Lymphadenopathy Endocrine : No Polyuria, No Polydipsia, No Temperature Intolerance [facility] Past Medical History Medical History Alcoholism Anxiety Benign essential hypertension Bipolar 1 disorder Bipolar disorder Cardiac arrhythmia Depression Family history of breast cancer Hx of esophageal ulcer Left shoulder pain Low back pain Obesity (BMI 30-39.9) Paresthesia of left upper extremity SVT (supraventricular tachycardia) Vitamin D deficiency Surgical History History of incisional hernia repair Hx of section Hx of colonoscopy Hx of endoscopy Hx of gastrostomy (~04/2002) Hx of nasal septoplasty Family History Family History Father Esophagus cancer, Onset Age: 63 Mother Breast cancer, Onset Age: 46 Maternal Grandfather Cancer Paternal Aunt Breast cancer Maternal Aunt Breast cancer Social History Social History Housing: House Alcohol intake: current Alcohol intake frequency: other Alcohol type: beer and wine Patient Tobacco Use Status: Current everyday Tobacco user Cigarettes Per Day: 1 Years Smoked: rarely- occasional smoker Second Hand Smoke Exposure: Yes service: No Current occupational status: employed Physical Exam ED Vital Signs: Vital Signs - 24 hr 01/06/22 09:17 01/06/22 14:30 Temperature 98.0 F Pulse Rate 84 90 Respiratory Rate 18 18 Blood Pressure 121/68 102/60 Pulse Oximetry 99 97 BMI result Body Mass Index 32.3 Const Other: Appearance: Alert. Oriented X3. No acute distress. Eyes: Pupils equal, round and reactive to light. ENT: Pharynx normal. Neck: Normal inspection. Neck supple. No lymph nodes noted. No crepitus CVS: Normal heart rate and rhythm. Pulses normal. Normal S1 and S2 Respiratory: No respiratory distress. Breath sounds normal. No Wheezing. No rales Abdomen: Soft and nontender. No rigidity. No distention. Skin: Skin warm and dry. Normal skin color. Normal skin turgor. Extremities: No lower extremity edema. No Lacerations. No Rash Neuro: Oriented X 3. No motor deficit. No sensory deficit. Moving all extremities. No slurred speech. CN 2 through 12 grossly intact Psych: calm, cooperative, anxious, teary Course Course Course Narrative: Patient received 2 g PO of Ativan, labs and EKG pending. coach cleaner aware that the patient is a consult. The recovery room nurse spoke to the patient, patient declined detox. Patient is interested in the Comprehensive [facility] program that this had patient. Patient was given all information, patient will have to make her own phone calls Also, her ear when evaluated the patient, patient will be started on naltrexone. Otherwise, patient feels well, patient ready for discharge, patient is clinically sober, sinus rhythm, heart rate between 70 and 90, trop negative. Her son is at bedside who will be taking her home. MDM - Alcohol Lab Data Result diagrams: 01/06/22 12:01 01/06/22 12:01 Labs: Lab Results 01/06/22 01/06/22 01/06/22 Range/Units 12: 12: 12:01 WBC 7.3 (4.8-10.8) X10*3/uL RBC 4.32 (4.20-5.50) X10*6/uL Hgb 11.1 L (12.0-16.0) g/dl Hct 34.7 L (37.0-47.0) % MCV 80.3 (80.0-98.0) fL MCH 25.7 L (27.0-33.0) pg MCHC 32.0 (31.0-35.0) g/dl RDW 14.9 (11.0-16.0) % Plt Count 365 (160-400) X10*3/uL MPV 9.5 (9.4-12.3) fL Immature Gran % (Auto) 0.3 (0.0-0.4) % Neut % (Auto) 56.8 (45-73) % Lymph % (Auto) 35.8 (20-40) % [place] % (Auto) 5.8 (2-11) % Eos % (Auto) 0.3 (0-4) % Baso % (Auto) 1.0 (0-2) % Lymph # (Auto) 2.6 (1.2-4.9) X10*3/uL [place] # (Auto) 0.4 (0.1-1.2) X10*3/uL Eos # (Auto) 0.0 (0.0-0.4) X10*3/uL Baso # (Auto) 0.1 (0.0-0.2) X10*3/uL Abs Immat Gran (auto) 0.02 (0.00-0.03) X10*3/uL Absolute Neuts (auto) 4.2 (2.0-8.3) x10*3/uL Absolute Nucleated RBC 0.000 (0.0-0.012) X10*3/uL Nucleated RBC % (auto) 0.0 (0.0-0.2) /100WBC Sodium 138 (135-145) mmol/L Potassium 4.1 (3.3-5.1) mmol/L Chloride 102 (96-108) mmol/L Carbon Dioxide 24 (22-29) mmol/L Anion Gap 16 (12-20) BUN 7 L (9-16) mg/dL Creatinine 0.67 (0.5-1.4) mg/dL Estim Creat Clear Calc 112.6 Estimated GFR > 60 Random Glucose 83 (60-115) mg/dL Calcium 8.9 (8.4-10.2) mg/dL Total Bilirubin 0.3 (0.0-1.0) mg/dL AST 14 (5-31) U/L ALT 11 (0-31) U/L Alkaline Phosphatase 61 (39-117) U/L Troponin I High Sens < 3.5 (<3.5-17.0) ng/L Total Protein 7.0 (6.5-8.0) g/dL Albumin 4.0 (3.5-5.0) g/dL TSH (0.32-4.0) uIU/mL Urine Opiates Screen (Not Detect) Urine Fentanyl Screen (Not Detect) Ur Barbiturates Screen (Not Detect) Ur Phencyclidine Scrn (Not Detect) Ur Amphetamines Screen (Not Detect) U Benzodiazepines Scrn (Not Detect) Urine Cocaine Screen (Not Detect) U Marijuana (THC) Screen (Not Detect) Ethyl Alcohol mg/dL 01/06/22 01/06/22 01/06/22 Range/Units 12:01 12:01 13:10 WBC (4.8-10.8) X10*3/uL RBC (4.20-5.50) X10*6/uL Hgb (12.0-16.0) g/dl Hct (37.0-47.0) % MCV (80.0-98.0) fL MCH (27.0-33.0) pg MCHC (31.0-35.0) g/dl RDW (11.0-16.0) % Plt Count (160-400) X10*3/uL MPV (9.4-12.3) fL Immature Gran % (Auto) (0.0-0.4) % Neut % (Auto) (45-73) % Lymph % (Auto) (20-40) % [place] % (Auto) (2-11) % Eos % (Auto) (0-4) % Baso % (Auto) (0-2) % Lymph # (Auto) (1.2-4.9) X10*3/uL [place] # (Auto) (0.1-1.2) X10*3/uL Eos # (Auto) (0.0-0.4) X10*3/uL Baso # (Auto) (0.0-0.2) X10*3/uL Abs Immat Gran (auto) (0.00-0.03) X10*3/uL Absolute Neuts (auto) (2.0-8.3) x10*3/uL Absolute Nucleated RBC (0.0-0.012) X10*3/uL Nucleated RBC % (auto) (0.0-0.2) /100WBC Sodium (135-145) mmol/L Potassium (3.3-5.1) mmol/L Chloride (96-108) mmol/L Carbon Dioxide (22-29) mmol/L Anion Gap (12-20) BUN (9-16) mg/dL Creatinine (0.5-1.4) mg/dL Estim Creat Clear Calc Estimated GFR Random Glucose (60-115) mg/dL Calcium (8.4-10.2) mg/dL Total Bilirubin (0.0-1.0) mg/dL AST (5-31) U/L ALT (0-31) U/L Alkaline Phosphatase (39-117) U/L Troponin I High Sens (<3.5-17.0) ng/L Total Protein (6.5-8.0) g/dL Albumin (3.5-5.0) g/dL TSH 2.23 (0.32-4.0) uIU/mL Urine Opiates Screen Not Detected (Not Detect) Urine Fentanyl Screen Not Detected (Not Detect) Ur Barbiturates Screen Not Detected (Not Detect) Ur Phencyclidine Scrn Not Detected (Not Detect) Ur Amphetamines Screen Not Detected (Not Detect) U Benzodiazepines Scrn Not Detected (Not Detect) Urine Cocaine Screen Not Detected (Not Detect) U Marijuana (THC) Screen Not Detected (Not Detect) Ethyl Alcohol 186 mg/dL Discharge Plan Discharge Clinical Impression: Alcohol abuse, Anxiety, Palpitation Patient Disposition: Home, Self-Care Instructions: Heart Palpitations (DC), Abuse of Alcohol (DC) Prescriptions: New naltrexone 50 mg tablet 50 mg PO DAILY Qty: 30 1RF Rx Instructions: take 1/2 tab daily for 2 days, then increase to 1 tab daily No Action albuterol sulfate [ProAir HFA] 90 mcg/actuation HFA aerosol inhaler 2 puff inhalation Q6H PRN (Reason: shortness of breath or wheezing) 30 Days Qty: 8.5 1RF lansoprazole 30 mg capsule,delayed release(DR/EC) 30 mg PO DAILY Qty: 30 6RF magnesium oxide 500 mg tablet 500 mg PO DAILY Qty: 90 3RF cholecalciferol (vitamin D3) 25 mcg (1,000 unit) tablet 25 mcg PO DAILY 90 Days Qty: 90 12RF metoprolol succinate 50 mg tablet extended release 24 hr 50 mg PO DAILY 90 Days Qty: 90 3RF fluoxetine 20 mg capsule 20 mg PO DAILY Qty: 90 1RF lorazepam 1 mg tablet 1 mg PO Q12H PRN (Reason: anxiety) 90 Days Qty: 180 0RF ondansetron 4 mg tablet,disintegrating 4 mg PO Q8H PRN (Reason: nausea and vomiting) Qty: 10 0RF ondansetron 4 mg tablet,disintegrating 4 mg PO Q6-8H PRN (Reason: nausea and vomiting) Qty: 14 0RF prochlorperazine maleate [Compazine] 5 mg tablet 5 mg PO TID PRN (Reason: nausea and vomiting) Qty: 10 0RF chlordiazepoxide HCl 25 mg capsule 50 mg PO Q6-8H PRN (Reason: alcohol withdrawal) 30 Days Qty: 60 1RF cyclobenzaprine 10 mg tablet 10 mg PO TID PRN (Reason: muscle spasm) 30 Days Qty: 90 4RF dicyclomine 10 mg capsule 10 mg PO QID 30 Days Qty: 120 3RF sucralfate 1 gram tablet 1 g PO BID 30 Days Qty: 60 3RF meloxicam [Mobic] 7.5 mg tablet 7.5 mg PO DAILY PRN (Reason: pain) 90 Days Qty: 90 1RF Gas Relief (simethicone) 250 mg capsule 250 mg PO BID PRN0RF Align 4 mg capsule 4 mg PO DAILY 0RF Stand Alone Forms: Work/School Release Interventions: ED Discharge Assessment Last Done: 01/06/22 14:29 Discharge Date/Time: 01/06/22 14:30
[2022-01-06 12:08] LABS: MANUAL DIFF FLAG NO
[2022-01-06 12:10] LABS: Basophils Absolute Auto 0.1 X10*3/uL (0.0-0.2); Eosinophils Percent Auto 0.3 % (0-4); Hematocrit 34.7 % (37.0-47.0); Hemoglobin 11.1 g/dl (12.0-16.0); Imm Gran Abs Auto 0.02 X10*3/uL (0.00-0.03); Imm Gran Pct Auto 0.3 % (0.0-0.4); Lymphocytes Absolute Auto 2.6 X10*3/uL (1.2-4.9); Lymphocytes Percent Auto 35.8 % (20-40); Mean Corpuscular Hemoglobin 25.7 pg (27.0-33.0); Mean Corpuscular Volume 80.3 fL (80.0-98.0); Mean Platelet Volume 9.5 fL (9.4-12.3); Monocytes Absolute Auto 0.4 X10*3/uL (0.1-1.2); Monocytes Percent Auto 5.8 % (2-11); Neutrophils Absolute Auto 4.2 x10*3/uL (2.0-8.3); Neutrophils Percent Auto 56.8 % (45-73); Platelet Count 365 X10*3/uL (160-400); Red Blood Count 4.32 X10*6/uL (4.20-5.50); Red Cell Distribution Width 14.9 % (11.0-16.0); White Blood Count 7.3 X10*3/uL (4.8-10.8)
[2022-01-06] MEDS: LORazepam 1 MG TABLET 2 MG PO (12:12)
[2022-01-06 12:31] LABS: Ethanol 186 mg/dL
[2022-01-06 12:34] LABS: Alanine Aminotransferase 11 U/L (0-31); Alkaline Phosphatase 61 U/L (39-117); Anion Gap 16 (12-20); Aspartate Amino Transferase 14 U/L (5-31); Bilirubin Total 0.3 mg/dL (0.0-1.0); Blood Urea Nitrogen 7 mg/dL (9-16); Calcium 8.9 mg/dL (8.4-10.2); Carbon Dioxide 24 mmol/L (22-29); Chloride 102 mmol/L (96-108); Creatinine Clr Calc Pharmacy 112.6; Estimated Glomerular Filt Rate > 60; Glucose Random 83 mg/dL (60-115); Potassium 4.1 mmol/L (3.3-5.1); Sodium 138 mmol/L (135-145)
[2022-01-06 12:41] LABS: Troponin-I High Sensitivity < 3.5 ng/L (<3.5-17.0)
[2022-01-06 12:55] LABS: TSH reflex Free T4 2.23 uIU/mL (0.32-4.0)
--- NOTE | 2022-01-06 13:07 | MHC.RECOVSUP ---
? Reason for consult:Recovery Support o Current location:ED14 o Identified substance use concern: ETOH - Support ? Intervention: o MAT started or to be started o Community resources provided o Harm reduction discussion ? Plan: o Referral to [facility] o Patient to follow up with HF after discharge ? Additional information:Patient refused to go to detox. Patient interested in MAT and referred to the [facility]. Patient interested in IOP.
[2022-01-06 13:51] LABS: Amphetamine Screen Urine Not Detected (Not Detect); Barbiturates, Urine Not Detected (Not Detect); Benzodiazepines Screen Urine Not Detected (Not Detect); Cannabinoid Screen Urine Not Detected (Not Detect); Cocaine Screen Urine Not Detected (Not Detect); Fentanyl, urine Not Detected (Not Detect); Opiate Screen Urine Not Detected (Not Detect); Phencyclidine Screen Urine Not Detected (Not Detect)
--- NOTE | 2022-01-06 14:10 | HO.ADDICTCON ---
History of Present Illness Date of Service: 01/06/2022 Chief Complaint: etoh w/ heat meadicine Reason for Consult: Alcohol use disorder Requesting physician: Chely Oneil Discussed with referring provider: Yes HPI Narrative: Patient is a 51-year-old female with history of alcohol use disorder. She presented to the emergency department requesting assistance to stop drinking. She had met with financial coach earlier and expressed interest in trialing medications for alcohol use disorder. Patient seen by this commercial insurance underwriter and recovery support nurse in room 14 of main emergency Department. Patient's friend present during interview. Somewhat challenging to elicit history from patient as she was not very forthcoming with responses related to alcohol use. She appeared to be minimizing her use, including amount frequency and duration. She did however state that she has been drinking every day for the last week several nips per day. She was reporting feeling weak and dizzy during interview. No tremor noted, not diaphoretic, and no GI distress as patient was eating during interview. Initially denied any history of substance use treatment, then reported previous IOP admission. While reluctant to share information, patient was very open to hearing treatment options and was asking appropriate questions. Review of Systems Constitutional: Reports as per HPI Diagnostics Vital Signs (24Hr): Vital Signs - 24 hr 01/06/22 09:17 Temperature 98.0 F Pulse Rate 84 Respiratory Rate 18 Blood Pressure 121/68 Pulse Oximetry 99 BMI result Body Mass Index 32.3 Labs Results: 01/06/22 12:01 01/06/22 12:01 Labs: Laboratory Results - last 48 hr 01/06/22 01/06/22 01/06/22 12:01 12:01 12:01 WBC 7.3 RBC 4.32 Hgb 11.1 L Hct 34.7 L MCV 80.3 MCH 25.7 L MCHC 32.0 RDW 14.9 Plt Count 365 MPV 9.5 Immature Gran % (Auto) 0.3 Neut % (Auto) 56.8 Lymph % (Auto) 35.8 [place] % (Auto) 5.8 Eos % (Auto) 0.3 Baso % (Auto) 1.0 Lymph # (Auto) 2.6 [place] # (Auto) 0.4 Eos # (Auto) 0.0 Baso # (Auto) 0.1 Abs Immat Gran (auto) 0.02 Absolute Neuts (auto) 4.2 Absolute Nucleated RBC 0.000 Nucleated RBC % (auto) 0.0 Sodium 138 Potassium 4.1 Chloride 102 Carbon Dioxide 24 Anion Gap 16 BUN 7 L Creatinine 0.67 Estim Creat Clear Calc 112.6 Estimated GFR > 60 Random Glucose 83 Calcium 8.9 Total Bilirubin 0.3 AST 14 ALT 11 Alkaline Phosphatase 61 Troponin I High Sens < 3.5 Total Protein 7.0 Albumin 4.0 TSH Urine Opiates Screen Urine Fentanyl Screen Ur Barbiturates Screen Ur Phencyclidine Scrn Ur Amphetamines Screen U Benzodiazepines Scrn Urine Cocaine Screen U Marijuana (THC) Screen Ethyl Alcohol 01/06/22 01/06/22 01/06/22 12:01 12:01 13:10 WBC RBC Hgb Hct MCV MCH MCHC RDW Plt Count MPV Immature Gran % (Auto) Neut % (Auto) Lymph % (Auto) [place] % (Auto) Eos % (Auto) Baso % (Auto) Lymph # (Auto) [place] # (Auto) Eos # (Auto) Baso # (Auto) Abs Immat Gran (auto) Absolute Neuts (auto) Absolute Nucleated RBC Nucleated RBC % (auto) Sodium Potassium Chloride Carbon Dioxide Anion Gap BUN Creatinine Estim Creat Clear Calc Estimated GFR Random Glucose Calcium Total Bilirubin AST ALT Alkaline Phosphatase Troponin I High Sens Total Protein Albumin TSH 2.23 Urine Opiates Screen Not Detected Urine Fentanyl Screen Not Detected Ur Barbiturates Screen Not Detected Ur Phencyclidine Scrn Not Detected Ur Amphetamines Screen Not Detected U Benzodiazepines Scrn Not Detected Urine Cocaine Screen Not Detected U Marijuana (THC) Screen Not Detected Ethyl Alcohol 186 Mental Status Exam Mental Status Exam Patient Appearance: Appropriate Patient Behavior: Appropriate and Guarded Affect Description: Constricted Judgement: Fair (limited insight relkated to AUD) Medications Allergies Allergies Allergy/AdvReac Type Severity Reaction Status Date / Time morphine AdvReac Unknown withdrawals Verified 11/23/21 13:37 /sweats Assessment & Plan Assessment & Plan (1) Alcohol abuse: Status: Acute Code(s): F10.10 - Alcohol abuse, uncomplicated Assessment and Plan: Discussed medication treatment options, inpatient and outpatient recovery supports. Patient verbalizing that she would like to trial naltrexone p.o. with goal of transitioning to Vivitrol. Reviewed medication dosing, side effects, goals of treatment, and medication interactions Prescription sent to patient's pharmacy and several printed resources provided to patient. I spent __35___ minutes with the patient and/or on the patient floor today, greater than?50% of which was spent counseling/coordinating care. [facility] Past Medical History Medical History Alcoholism Anxiety Benign essential hypertension Bipolar 1 disorder Bipolar disorder Cardiac arrhythmia Depression Family history of breast cancer Hx of esophageal ulcer Left shoulder pain Low back pain Obesity (BMI 30-39.9) Paresthesia of left upper extremity SVT (supraventricular tachycardia) Vitamin D deficiency Family History Family History Father Esophagus cancer, Onset Age: 63 Mother Breast cancer, Onset Age: 46 Maternal Grandfather Cancer Paternal Aunt Breast cancer Maternal Aunt Breast cancer Surgical History Surgical History History of incisional hernia repair Hx of section Hx of colonoscopy Hx of endoscopy Hx of gastrostomy (~04/2002) Hx of nasal septoplasty Social History Social History Housing: House Alcohol intake: current Alcohol intake frequency: other Alcohol type: beer and wine Patient Tobacco Use Status: Current everyday Tobacco user Cigarettes Per Day: 1 Years Smoked: rarely- occasional smoker Second Hand Smoke Exposure: Yes Advance Directives: No Advance Directives Information Provided: Yes Patient : No service: No Current occupational status: employed
[2022-01-06 14:30] VITALS: BP 102/60; PULSE 90; RESP 18; O2SAT 97
== END 2022-01-06 14:30 | disposition home or self-care (01) ==
PROVIDERS: Emergency Provider Emergency Medicine; PCP Internal Medicine
DX: F10.10 Alcohol abuse, uncomplicated (principal); Y90.6 Blood alcohol level of 120-199 mg/100 ml; R00.2 Palpitations; Z79.899 Other long term (current) drug therapy; F17.210 Nicotine dependence, cigarettes, uncomplicated; Z71.6 Tobacco abuse counseling; Z71.41 Alcohol abuse counseling and surveillance of alcoholic
CPT/HCPCS: 36415; 80053; 80307; 82077; 84443; 84484; 85025; 93005; 99282; 99283; 99284

== ENCOUNTER 2022-01-06 16:25 | Emergency (ER) | payer OTHER, SELFPAY ==
--- NOTE | 2022-01-06 | ECG_ITS ---
Test Reason : TACHYCARDIA Blood Pressure : / mmHG Vent. Rate : 096 BPM Atrial Rate : 096 BPM P-R Int : 142 ms QRS Dur : 074 ms QT Int : 364 ms P-R-T Axes : 057 009 051 degrees QTc Int : 459 ms Normal sinus rhythm Low voltage QRS Cannot rule out Anterior infarct , age undetermined Abnormal ECG When compared with ECG of 06-JAN-2022 12:08, No significant change was found Referred By: Generic ED Physician Electronically Signed By:BEST PEREZ MD
[2022-01-06 16:39] VITALS: BP 133/80; PULSE 125; RESP 18; TEMP 36.9; O2SAT 98; BMI 32.3
== END 2022-01-06 20:31 | disposition left against medical advice (07) ==
PROVIDERS: Emergency Provider Emergency Medicine; PCP Internal Medicine
DX: R00.0 Tachycardia, unspecified (principal); R00.2 Palpitations; R11.10 Vomiting, unspecified
CPT/HCPCS: 93005; 99282

== ENCOUNTER → 2022-03-30 13:27 | Outpatient (BNVA) | payer OTHER, SELFPAY | PROVIDERS: PCP Internal Medicine; Referring Provider Internal Medicine; Visit Provider Nurse Practitioner | DX: K58.9 Irritable bowel syndrome, unspecified (principal); K21.9 Gastro-esophageal reflux disease without esophagitis; Z85.09 Personal history of malignant neoplasm of other digestive organs; Z79.899 Other long term (current) drug therapy | CPT/HCPCS: 99212 ==

== ENCOUNTER 2022-04-12 14:11 | Outpatient (REF) | payer OTHER, SELFPAY ==
[2022-04-12 17:07] LABS: Syphilis Screen Nonreactive (Nonreactive)
[2022-04-12 18:05] LABS: CT PCR NOT DETECTED (Not Detect.); NG PCR NOT DETECTED (Not Detect.)
[2022-04-13 07:57] LABS: HBc Num1 0.09 S/CO (0.00-0.79); HIV AB/AG Nonreactive (Nonreactive); HIV Num 1 0.09 S/CO (0.00-0.99); Hepatitis B Core Antibody Nonreactive (Nonreactive); ~HepC Num1 0.08 S/CO (0.00-0.79); ~Hepatitis C Antibody Nonreactive (Nonreactive)
[2022-04-13 12:28] LABS: BV Int Neg Control Negative (Negative); BV Int Pos Control Positive (Positive)
== END 2022-04-12 14:12 | disposition home or self-care (01) ==
LOC: HO.LAB 14:11
PROVIDERS: PCP Internal Medicine; Visit Provider Advanced Practice Midwife
DX: Z01.84 Encounter for antibody response examination (principal); Z11.3 Encounter for screening for infections with a predominantly sexual mode of transmission; Z11.4 Encounter for screening for human immunodeficiency virus [HIV]; N92.0 Excessive and frequent menstruation with regular cycle; Z20.2 Contact with and (suspected) exposure to infections with a predominantly sexual mode of transmission
CPT/HCPCS: 36415; 86704; 86780; 86803; 87389; 87480; 87491; 87510; 87591; 87660

== ENCOUNTER 2022-06-08 15:52 | Outpatient (REF) | payer OTHER, SELFPAY ==
--- NOTE | ~2022-06-08 | US_ITS ---
EXAMINATION: US PELVIS CLINICAL INFORMATION: Pain COMPARISON: Previous pelvic ultrasound most recent September 2018 CT September 2017 TECHNIQUE: Ultrasound of the pelvis is performed using both transabdominal and transvaginal transducers along with Doppler. Transvaginal imaging is performed due to inadequate visualization transabdominally. FINDINGS: The uterus is anteverted and measures 7.4 x 4.8 cm in dimension. The uterus appears heterogeneous. No focal uterine lesion is seen. Endometrial thickness measures 0.5 cm. There are nabothian cysts in the cervix. The ovaries are normal-appearing. Right ovary measures 2.7 x 1.6 x 1.7 cm. Left ovary measures 2.5 x 2.3 x 1.9 cm. There is no fluid in the pelvis. US/US pelvic and transvaginal IMPRESSION: Unremarkable exam.
== END 2022-06-08 15:53 | disposition home or self-care (01) ==
LOC: HO.US 15:52
PROVIDERS: Visit Provider Advanced Practice Midwife
DX: R10.2 Pelvic and perineal pain (principal)
CPT/HCPCS: 76830; 76856

== ENCOUNTER 2022-07-31 07:46 | Outpatient (REF) | payer OTHER, SELFPAY ==
[2022-07-31 08:11] LABS: MANUAL DIFF FLAG NO
[2022-07-31 09:00] LABS: Basophils Absolute Auto 0.1 X10*3/uL (0.0-0.2); Basophils Percent Auto 1.7 % (0-2); Eosinophils Absolute Auto 0.3 X10*3/uL (0.0-0.4); Eosinophils Percent Auto 5.7 % (0-4); Hematocrit 35.2 % (37.0-47.0); Hemoglobin 11.1 g/dl (12.0-16.0); Imm Gran Abs Auto 0.02 X10*3/uL (0.00-0.03); Imm Gran Pct Auto 0.4 % (0.0-0.4); Lymphocytes Absolute Auto 2.1 X10*3/uL (1.2-4.9); Lymphocytes Percent Auto 39.3 % (20-40); Mean Corpuscular HGB Conc 31.5 g/dl (31.0-35.0); Mean Corpuscular Hemoglobin 25.5 pg (27.0-33.0); Mean Corpuscular Volume 80.9 fL (80.0-98.0); Mean Platelet Volume 10.5 fL (9.4-12.3); Monocytes Absolute Auto 0.5 X10*3/uL (0.1-1.2); Monocytes Percent Auto 10.2 % (2-11); Neutrophils Absolute Auto 2.3 x10*3/uL (2.0-8.3); Neutrophils Percent Auto 42.7 % (45-73); Platelet Count 321 X10*3/uL (160-400); Red Blood Count 4.35 X10*6/uL (4.20-5.50); Red Cell Distribution Width 15.4 % (11.0-16.0); White Blood Count 5.3 X10*3/uL (4.8-10.8)
[2022-07-31 09:26] LABS: Alanine Aminotransferase 12 U/L (0-31); Albumin Level 4.1 g/dL (3.5-5.0); Alkaline Phosphatase 54 U/L (39-117); Anion Gap 13 (12-20); Aspartate Amino Transferase 17 U/L (5-31); Bilirubin Total 0.3 mg/dL (0.0-1.0); Blood Urea Nitrogen 9 mg/dL (9-16); Calcium 9.5 mg/dL (8.4-10.2); Carbon Dioxide 28 mmol/L (22-29); Chloride 105 mmol/L (96-108); Cholesterol 205 mg/dL; Estimated Glomerular Filt Rate > 60; Glucose Fasting 100 mg/dL (60-99); HDL Cholesterol 56 mg/dL; Iron 35 mcg/dL (30-160); LDL Cholesterol Calculated 139 mg/dl; Percent Iron Saturation 7 % (15-50); Potassium 4.9 mmol/L (3.3-5.1); Sodium 141 mmol/L (135-145); Total Iron Binding Capacity 473 mcg/dL (228-428); Total Protein 6.9 g/dL (6.5-8.0); Triglycerides 54 mg/dL; Unsaturated Iron Binding 438 ug/dL
[2022-07-31 09:51] LABS: TSH reflex Free T4 2.45 uIU/mL (0.32-4.0)
[2022-07-31 10:20] LABS: Vitamin D 25-OH Total 36.7 ng/mL (>30)
[2022-07-31 10:27] LABS: Appearance Urine Clear; Color Urine Yellow; Glucose Urine UA Negative (Negative); Leukocyte Esterase Urine Negative (Negative); Nitrite Urine Negative (Negative); PH 6.5 (5.0-9.0); Urine Blood Negative (Negative); Urine Ketones Negative (Negative); Urine Protein Negative (Neg-Trace)
== END 2022-07-31 07:47 | disposition home or self-care (01) ==
LOC: HO.LAB 07:46
PROVIDERS: PCP Internal Medicine; Visit Provider Internal Medicine
DX: Z00.00 Encounter for general adult medical examination without abnormal findings (principal); E55.9 Vitamin D deficiency, unspecified; E78.00 Pure hypercholesterolemia, unspecified; D50.9 Iron deficiency anemia, unspecified
CPT/HCPCS: 36415; 80053; 80061; 81003; 82306; 83540; 84443; 85025

== ENCOUNTER → 2022-11-02 15:13 | Outpatient (BNVA) | payer OTHER, SELFPAY | PROVIDERS: PCP Internal Medicine; Visit Provider Nurse Practitioner | DX: K58.9 Irritable bowel syndrome, unspecified (principal); K21.9 Gastro-esophageal reflux disease without esophagitis | CPT/HCPCS: 99212 ==

== ENCOUNTER 2022-11-24 13:42 | Outpatient (REF) | payer OTHER, SELFPAY ==
--- NOTE | ~2022-11-24 | XR_ITS ---
EXAMINATION: XR CHEST CLINICAL INFORMATION: Cough COMPARISON: None TECHNIQUE: 2 views of the chest were obtained. FINDINGS: No significant abnormality is noted involving the heart, lungs, mediastinum, bony thorax or soft tissues. XR/XR chest 2V IMPRESSION: No acute disease
== END 2022-11-24 13:43 | disposition home or self-care (01) ==
LOC: HO.HMGCX 13:42
PROVIDERS: PCP Internal Medicine; Visit Provider Nurse Practitioner Family
DX: R05.9 Cough, unspecified (principal)
CPT/HCPCS: 71046

== ENCOUNTER 2022-11-24 17:44 | Outpatient (REF) | payer OTHER, SELFPAY ==
[2022-11-24 18:31] LABS: Influenza A PCR NEGATIVE (Negative); Influenza B PCR NEGATIVE (Negative); Resp Syncy Virus RNA Qual PCR NEGATIVE (Negative); SARS COV2 PCR INHOUSE NEGATIVE (Negative)
== END 2022-11-24 17:45 | disposition home or self-care (01) ==
LOC: HO.LNP 17:44
PROVIDERS: Visit Provider Nurse Practitioner Family
DX: Z20.822 Contact with and (suspected) exposure to COVID-19 (principal); R05.9 Cough, unspecified
CPT/HCPCS: 0241U

== ENCOUNTER → 2022-12-20 14:48 | Outpatient (BNV) | payer OTHER, SELFPAY | PROVIDERS: PCP Internal Medicine; Visit Provider Internal Medicine | DX: D50.9 Iron deficiency anemia, unspecified (principal) | CPT/HCPCS: 99204; 99213 ==

== ENCOUNTER 2022-12-28 15:04 | Outpatient (REF) | payer OTHER, SELFPAY | END 2022-12-28 15:05 | disposition home or self-care (01) | LOC: HO.MDS 15:04 | PROVIDERS: Visit Provider Internal Medicine | DX: D50.9 Iron deficiency anemia, unspecified (principal) | CPT/HCPCS: 96365; J1756 ==

== ENCOUNTER 2023-01-04 15:08 | Outpatient (REF) | payer OTHER, SELFPAY | END 2023-01-04 15:09 | disposition home or self-care (01) | LOC: HO.MDS 15:08 | PROVIDERS: Visit Provider Internal Medicine | DX: D50.9 Iron deficiency anemia, unspecified (principal) | CPT/HCPCS: 96365; J1756 ==

== ENCOUNTER 2023-01-11 15:07 | Outpatient (REF) | payer OTHER, SELFPAY | END 2023-01-11 15:08 | disposition home or self-care (01) | LOC: HO.MDS 15:07 | PROVIDERS: Visit Provider Internal Medicine | DX: D50.9 Iron deficiency anemia, unspecified (principal) | CPT/HCPCS: 96365; J1756 ==

== ENCOUNTER 2023-01-13 15:02 | Outpatient (REF) | payer OTHER, SELFPAY ==
--- NOTE | ~2023-01-13 | MM_ITS ---
EXAMINATION: MM SCREENING DIGITAL BREAST TOMOSYNTHESIS, BILATERAL CLINICAL INFORMATION: Screening. Asymptomatic. Family history breast cancer, mother (age 46); aunts x2. The lifetime risk of breast cancer based on the Tyrer-Cuzick Model is 21%. COMPARISON: Mammography: 12/25/2021, 11/15/2020, 08/13/2019 TECHNIQUE: Digital mammography is performed in craniocaudal and mediolateral oblique views along with computer-aided detection (CAD). Digital breast tomosynthesis is performed in implant-displaced craniocaudal and implant-displaced mediolateral oblique views along with computer-aided detection (CAD). Synthesized 2D images are generated from the tomosynthesis. FINDINGS: There are scattered areas of fibroglandular density (ACR BI-RADS breast composition Category b). There are bilateral implants with margins smooth and similar to prior studies. Parenchymal pattern is similar to prior exams and there is no developing density or interval mass or architectural abnormality. No abnormal calcifications. The axilla and skin contours are unremarkable. No significant changes. MM/MM tomosynthesis screen imp BI IMPRESSION: No mammographic evidence of malignancy. ASSESSMENT: BI-RADS 1: Negative RECOMMENDATION: Routine annual mammography screening. This patient's information was entered into a reminder system with a target due date for their next mammogram.
== END 2023-01-13 15:03 | disposition home or self-care (01) ==
LOC: HO.MAMMO 15:02
PROVIDERS: PCP Internal Medicine; Visit Provider Internal Medicine
DX: Z12.31 Encounter for screening mammogram for malignant neoplasm of breast (principal)
CPT/HCPCS: 77063; 77067

== ENCOUNTER 2023-01-25 06:14 | Emergency (ER) | payer OTHER, SELFPAY ==
--- NOTE | 2023-01-25 | ECG_ITS ---
Test Reason : ANXIETY/PALPATIONS Blood Pressure : / mmHG Vent. Rate : 098 BPM Atrial Rate : 098 BPM P-R Int : 142 ms QRS Dur : 072 ms QT Int : 376 ms P-R-T Axes : 059 029 053 degrees QTc Int : 480 ms Normal sinus rhythm Low voltage QRS Cannot rule out Anterior infarct (cited on or before 06-JAN-2022) Abnormal ECG When compared with ECG of 06-JAN-2022 16:38, No significant change was found Referred By: Generic ED Physician Electronically Signed By:Dennis Manuel
[2023-01-25 06:15] VITALS: BP 133/88; PULSE 104; RESP 18; TEMP 36.8; O2SAT 98; BMI 27.3
[2023-01-25 06:22] VITALS: BP 137/94; PULSE 103; RESP 16; TEMP 37.3; O2SAT 98; BMI 32.3
--- NOTE | 2023-01-25 06:36 | ED_ITS ---
HPI - General Adult General Chief complaint: ETOH/Substance Use Stated complaint: Chest pain, anxiety Time Seen by Provider: 01/25/23 06:34 Source: patient Mode of arrival: ambulatory Limitations: no limitations History of Present Illness HPI narrative: Patient is a 52 year old assigned female at with a history of alcohol abuse and GERD presenting to the emergency department today after an episode of binge drinking and a sore throat. Patient states that she had been sober for a year. 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 Patient states that her last drink was this morning at 0130. Patient denies any dizziness, lightheadedness, abdominal pain, nausea, vomiting, fever, chills, blurry vision, double vision, loss of vision, chest pain, difficulty breathing, shortness of breath, back pain, night sweats, pain with urination, increased urinary frequency, increased urinary urgency, blood in her urine or stool, syncope or a near syncopal episode, recent trauma or falls, bowel incontinence, bladder incontinence, bowel retention, bladder retention, or any other complaints at this time. Relieving factors: none Exacerbating factors: none Associated symptoms: denies other symptoms Treatments prior to arrival: none Related Data Home Medications Medication Instructions Recorded Confirmed chlordiazepoxide HCl 25 mg capsule 50 mg PO Q6-8H PRN alcohol 03/30/22 12/20/22 withdrawal naltrexone 50 mg tablet 50 mg PO DAILY 03/30/22 11/24/22 prochlorperazine maleate 5 mg 5 mg PO TID PRN nausea and vomiting 03/30/22 12/20/22 tablet (Compazine) Previous Rx's Medication Instructions Recorded albuterol sulfate 90 mcg/actuation 2 puff inhalation Q6H PRN 11/04/20 aerosol inhaler (ProAir HFA) shortness of breath or wheezing 30 days #8.5 grams ondansetron 4 mg disintegrating 4 mg PO Q8H PRN nausea and 06/03/21 tablet vomiting #10 tabs magnesium oxide 500 mg tablet 500 mg PO DAILY #90 tabs 09/20/21 meloxicam 15 mg tablet 15 mg PO DAILY PRN pain 90 days 02/03/22 #90 tabs fluoxetine 20 mg capsule 20 mg PO DAILY #90 caps 04/21/22 cyclobenzaprine 10 mg tablet 10 mg PO TID PRN muscle spasm 30 05/05/22 days #90 caps fluticasone propionate 50 2 spray intranasal DAILY PRN 05/28/22 mcg/actuation nasal allergy symptoms 30 days #16 grams spray,suspension lorazepam 1 mg tablet 1 mg PO Q12H PRN anxiety 90 days 09/29/22 #180 tabs metoprolol succinate 50 mg 50 mg PO DAILY 90 days #90 tabs 10/25/22 tablet,extended release 24 hr lansoprazole 30 mg capsule,delayed 30 mg PO DAILY #30 caps 11/02/22 release sucralfate 1 gram tablet 1 g PO BID 30 days #60 tabs 11/02/22 benzonatate 100 mg capsule 100 mg PO TID PRN cough 10 days 11/24/22 #30 caps fluticasone 113 mcg-salmeterol 14 1 inh inhalation Q12H 30 days #1 ea 11/24/22 mcg/actuation breath activated powdr fluticasone propionate 45 2 puff inhalation BID #8 grams 11/25/22 mcg-salmeterol 21 mcg/actuation HFA inhaler (Advair HFA) cholecalciferol (vitamin D3) 25 25 mcg PO DAILY 90 days #90 tabs 11/28/22 mcg (1,000 unit) tablet ondansetron 4 mg disintegrating 4 mg PO Q8H 3 days #9 tabs 01/25/23 tablet Allergies Allergy/AdvReac Type Severity Reaction Status Date / Time morphine AdvReac Unknown withdrawals Verified 11/24/22 13:24 /sweats Review of Systems Constitutional: Constitutional: Reports no additional constitutional complaints, Denies chills, Denies fever(s) and Denies night sweats Eyes: Eyes: Reports no additional eye complaints, Denies blurry vision, Denies change in vision, Denies diplopia, Denies eye discharge, Denies loss of vision and Denies eye pain ENT: Denies dizziness Cardiovascular: Cardiovascular: Reports no additional cardiovascular complaints, Denies chest pain, Denies lightheadedness, Denies Loss of Consciousness and Denies dyspnea Respiratory: Respiratory: Reports no additional respiratory complaints and Denies dyspnea Gastrointestinal: Gastrointestinal: Reports no additional gastrointestinal complaints, Denies abdominal pain, Denies melena, Denies hematochezia, Denies change in bowel habits and Denies change in stool character Genitourinary: Genitourinary: Denies hematuria, Denies urinary frequency, Denies dysuria, Denies urinary incontinence, Denies urinary hesitancy and Denies urinary urgency Musculoskeletal: Musculoskeletal: Reports no additional musculoskeletal complaints, Denies numbness and Denies tingling Neurologic: Denies dizziness, Denies loss of vision, Denies numbness and Denies tingling Psychiatric: Psychiatric: Reports no additional psychiatric complaints Endocrine: Endocrine: Reports no additional endocrine complaints Hematologic/Lymphatic: Hematologic/Lymphatic: Reports no additional hematologic/lymphatic complaints Allergic/Immunologic: Allergic/Immunologic: Reports no additional allergic/immunologic complaints PMFSH Past Medical History Attestation statement: The following information was validated with the patient. Source: old records reviewed and nursing notes reviewed Medical History Alcoholism Anxiety Benign essential hypertension Bipolar 1 disorder Bipolar disorder Cardiac arrhythmia Depression Family history of breast cancer Hx of esophageal ulcer Left shoulder pain Low back pain Obesity (BMI 30-39.9) Paresthesia of left upper extremity Pure hypercholesterolemia SVT (supraventricular tachycardia) Venous insufficiency of both lower extremities Vitamin D deficiency Surgical History History of breast augmentation History of incisional hernia repair Hx of section Hx of colonoscopy Hx of endoscopy Hx of gastrostomy (~04/2002) Hx of nasal septoplasty Family History Family History Father Esophagus cancer, Onset Age: 63 Mother Breast cancer, Onset Age: 46 Maternal Grandfather Cancer Paternal Aunt Breast cancer Maternal Aunt Breast cancer Social History Social History Household Members: None Housing: House Alcohol intake: current Alcohol intake frequency: other Alcohol type: beer and wine Patient Tobacco Use Status: Current everyday Tobacco user Tobacco use type: Cigarette Years Smoked: rarely- occasional smoker Smoked in Last 30 Days: No e-Cigarette/Vaping Use: Never Used Second Hand Smoke Exposure: Yes Advance Directives: Yes Advance Directives Information Provided: No Advance Directives on File: No service: No Current occupational status: employed Cognitive needs: No Hearing needs: No Vision needs: Yes Physical Exam ED Vital Signs: Vital Signs - 24 hr 01/25/23 06:15 01/25/23 06:22 01/25/23 09:43 Temperature 98.2 F 99.2 F 98.5 F Pulse Rate 104 H 103 H 86 Respiratory Rate 18 16 23 H Blood Pressure 133/88 137/94 H 112/48 L Pulse Oximetry 98 98 100 Oxygen Delivery Method Room Air Room Air Room Air BMI result Body Mass Index 32.3 Const General: cooperative, no acute distress, alert and awake Nutritional Appearance: well nourished Orientation/consciousness: patient oriented x3 Limitations: no limitations HENMT Head: Yes normal to inspection and Yes atraumatic Ears: hearing grossly normal bilaterally and external ears normal General nose exam: Normal external nose present, no nasal discharge noted and no epistaxis Face and sinus: Yes normal facial exam, No abrasion and No laceration Mouth: Normal oral and palatal mucosa present, no drooling and no muffled voice Eyes General: appearance normal, both eyes and all related structures Periorbital: periorbital findings normal Eyelids: Yes eyelids normal Conjunctivae: conjunctivae normal Pupils: Equal, round and reactive pupils present EOM: EOMs intact bilaterally Neck Neck: Yes normal visual inspection, Yes full ROM and Yes no lymphadenopathy Chest Chest palpation & inspection: normal inspection of the chest Resp Effort & Inspection: normal respiratory effort and able to speak in complete sentences GI Inspection: Yes normal to inspection Neuro General: patient oriented x3 and moves all extremities Cranial nerves: Yes Equal, round and reactive pupils present Cognition (Neuro): normal cognition Motor exam (neuro): 5/5 motor strength present throughout Sensory Exam: Normal double simultaneous stimulation for sensation Coordination: [id number] test normal Extrem General: Yes normal to inspection, Yes full ROM and Yes capillary refill normal Psych Appearance: grossly normal Mental Status: mental status grossly normal Affect: normal affect Attitude: cooperative Thought process: Normal thought process present Thought content: Normal thought content present Insight: Good insight present (Psych) Medications Administered Discontinued Medications Generic Name Dose Route Start Last Admin Trade Name Freq PRN Reason Stop Dose Admin Al Hydroxide/Mg Hydroxide 15 ml 01/25/23 06:55 01/25/23 07:37 Magnesium Hydrox/Alum Hydrox 30 Ml Oral.Susp PO 01/25/23 06:56 15 ml ONCE ONE Administration Sodium Chloride 1,000 mls @ 999 mls/hr 01/25/23 07:00 01/25/23 08:34 Ns IV 01/25/23 08:00 Infused .Q1H1M KENNETH Infusion Sodium Chloride 1,000 mls @ 999 mls/hr 01/25/23 09:15 01/25/23 10:33 Ns IV 01/25/23 10:15 Infused .Q1H1M KENNETH Infusion Lidocaine HCl 15 ml 01/25/23 06:55 01/25/23 07:37 Lidocaine Hcl Viscous 2 % 15 Ml Solution MUCOUS MEM 01/25/23 06:56 15 ml ONCE ONE Administration Lorazepam 2 mg 01/25/23 06:55 01/25/23 07:36 Lorazepam 2 Mg/Ml Vial IVPUSH 01/25/23 06:56 2 mg ONCE ONE Administration Pantoprazole Sodium 40 mg 01/25/23 06:55 01/25/23 07:36 Pantoprazole Sodium 40 Mg/10 Ml Vial IVPUSH 01/25/23 06:56 40 mg ONCE ONE Administration Medical Decision Making Medical Decision Making [facility] Narrative: Patient is a 52 year old assigned female at with a history of alcohol abuse presenting to the emergency department today after an episode of binge drinking. Patient's physical exam was unremarkable. Patient's blood work was unremarkable. Patient's EKG was unremarkable. I explained my physical exam findings as well as all test results to the patient. I answered all questions asked by the patient. Patient received IV fluids which she stated helped her symptoms significantly. Patient met with the CARE and Recovery teams who provided the patient with ample outpatient resources. I stressed the importance of the patient taking her medication as prescribed. I stressed the importance of the patient following up with her primary care provider. I stressed the importance of the patient returning to the emergency department immediately if her symptoms were to worsen or if she were to develop any dizziness, shortness of breath, difficulty breathing, chest pain, blurry vision, loss of vision, nausea, vomiting, abdominal pain, fever, chills, back pain, or any other co mplaints. Patient verbalized agreement and understanding with this treatment plan and discharge. Differential Diagnosis Differential Diagnoses: The differential diagnosis associated with the presentation includes alcohol abuse Lab Data [facility] Lab Attestation statement: I reviewed the patient's lab results. 01/25/23 06:38 01/25/23 06:38 Labs: Lab Results 01/25/23 01/25/23 01/25/23 Range/Units 06:38 06:38 06:44 WBC 8.0 (4.8-10.8) X10*3/uL RBC 4.66 (4.20-5.50) X10*6/uL Hgb 12.6 (12.0-16.0) g/dl Hct 39.3 (37.0-47.0) % MCV 84.3 (80.0-98.0) fL MCH 27.0 (27.0-33.0) pg MCHC 32.1 (31.0-35.0) g/dl RDW 19.9 H (11.0-16.0) % Plt Count 320 (160-400) X10*3/uL MPV 8.8 L (9.4-12.3) fL Immature Gran % (Auto) 0.4 (0.0-0.4) % Neut % (Auto) 59.9 (45-73) % Lymph % (Auto) 32.3 (20-40) % [place] % (Auto) 5.2 (2-11) % Eos % (Auto) 1.1 (0-4) % Baso % (Auto) 1.1 (0-2) % Lymph # (Auto) 2.6 (1.2-4.9) X10*3/uL [place] # (Auto) 0.4 (0.1-1.2) X10*3/uL Eos # (Auto) 0.1 (0.0-0.4) X10*3/uL Baso # (Auto) 0.1 (0.0-0.2) X10*3/uL Abs Immat Gran (auto) 0.03 (0.00-0.03) X10*3/uL Absolute Neuts (auto) 4.8 (2.0-8.3) x10*3/uL Absolute Nucleated RBC 0.000 (0.0-0.012) X10*3/uL Nucleated RBC % (auto) 0.0 (0.0-0.2) /100WBC Sodium 139 (135-145) mmol/L Potassium 3.9 D (3.3-5.1) mmol/L Chloride 103 (96-108) mmol/L Carbon Dioxide 24 (22-29) mmol/L Anion Gap 16 (12-20) BUN 6 L (9-16) mg/dL Creatinine 0.72 (0.5-1.4) mg/dL Estim Creat Clear Calc 103.6 Estimated GFR > 60 Random Glucose 116 H (60-115) mg/dL Calcium 9.0 (8.4-10.2) mg/dL Total Bilirubin 0.3 (0.0-1.0) mg/dL AST 14 (5-31) U/L ALT 10 (0-31) U/L Alkaline Phosphatase 74 (39-117) U/L Total Protein 7.0 (6.5-8.0) g/dL Albumin 4.1 (3.5-5.0) g/dL Urine Opiates Screen Not Detected (Not Detect) Urine Fentanyl Screen Not Detected (Not Detect) Ur Barbiturates Screen Not Detected (Not Detect) Ur Phencyclidine Scrn Not Detected (Not Detect) Ur Amphetamines Screen Not Detected (Not Detect) U Benzodiazepines Scrn Not Detected (Not Detect) Urine Cocaine Screen Not Detected (Not Detect) U Marijuana (THC) Screen Not Detected (Not Detect) Ethyl Alcohol 16 mg/dL Independent Interpretation I performed an independent interpretation of an: EKG Interpretation: Vent. Rate: 098 BPM ? ? Atrial Rate: 098 BPM P-R Int: 142 ms? QRS Dur: 072 ms QT Int: 376 ms ? ? ? P-R-T Axes: 059 029 053 degrees QTc Int: 480 ms ? Normal sinus rhythm Low voltage QRS Cannot rule out Anterior infarct (cited on or before 06-JAN-2022) Abnormal ECG When compared with ECG of 06-JAN-2022 16:38, No significant change was found DD/ 0627 Discharge Plan Discharge Clinical Impression: Alcoholism Patient Disposition: Home, Self-Care Instructions: Alcohol Use Disorder (ED) Additional Instructions: Follow up with your primary care provider. Return to the emergency department im mediately if your symptoms worsen or if you develop any dizziness, shortness of breath, difficulty breathing, chest pain, blurry vision, loss of vision, nausea, vomiting, abdominal pain, fever, chills, back pain, or any other complaints. Prescriptions: New ondansetron 4 mg tablet,disintegrating 4 mg PO Q8H 3 Days Qty: 9 0RF No Action albuterol sulfate [ProAir HFA] 90 mcg/actuation HFA aerosol inhaler 2 puff inhalation Q6H PRN (Reason: shortness of breath or wheezing) 30 Days Qty: 8.5 1RF magnesium oxide 500 mg tablet 500 mg PO DAILY Qty: 90 3RF meloxicam 15 mg tablet 15 mg PO DAILY PRN (Reason: pain) 90 Days Qty: 90 1RF Rx Instructions: Take with food fluoxetine 20 mg capsule 20 mg PO DAILY Qty: 90 1RF cyclobenzaprine 10 mg tablet 10 mg PO TID PRN (Reason: muscle spasm) 30 Days Qty: 90 4RF lorazepam 1 mg tablet 1 mg PO Q12H PRN (Reason: anxiety) 90 Days Qty: 180 0RF metoprolol succinate 50 mg tablet extended release 24 hr 50 mg PO DAILY 90 Days Qty: 90 3RF Advair HFA 45-21 mcg/actuation HFA aerosol inhaler 2 puff inhalation BID Qty: 8 0RF cholecalciferol (vitamin D3) 25 mcg (1,000 unit) tablet 25 mcg PO DAILY 90 Days Qty: 90 12RF ondansetron 4 mg tablet,disintegrating 4 mg PO Q8H PRN (Reason: nausea and vomiting) Qty: 10 0RF fluticasone propionate 50 mcg/actuation spray,suspension 2 spray intranasal DAILY PRN (Reason: allergy symptoms) 30 Days Qty: 16 5RF Rx Instructions: administer into each nostril benzonatate 100 mg capsule 100 mg PO TID PRN (Reason: cough) 10 Days Qty: 30 1RF fluticasone propion-salmeterol 113-14 mcg/actuation aerosol powdr breath activated 1 inh inhalation Q12H 30 Days Qty: 1 0RF chlordiazepoxide HCl 25 mg capsule 50 mg PO Q6-8H PRN (Reason: alcohol withdrawal) naltrexone 50 mg tablet 50 mg PO DAILY Rx Instructions: take 1/2 tab daily for 2 days, then increase to 1 tab daily prochlorperazine maleate [Compazine] 5 mg tablet 5 mg PO TID PRN (Reason: nausea and vomiting) lansoprazole 30 mg capsule,delayed release(DR/EC) 30 mg PO DAILY Qty: 30 6RF sucralfate 1 gram tablet 1 g PO BID 30 Days Qty: 60 6RF Referrals: Vishal Brock MD [Primary Care Provider] - Stand Alone Forms: Work/School Release Interventions: ED Discharge Assessment Last Done: 01/25/23 12:28 Discharge Date/Time: 01/25/23 12:31 Print Language: Spanish
[2023-01-25 06:44] LABS: MANUAL DIFF FLAG NO
[2023-01-25 06:45] LABS: Basophils Absolute Auto 0.1 X10*3/uL (0.0-0.2); Basophils Percent Auto 1.1 % (0-2); Eosinophils Absolute Auto 0.1 X10*3/uL (0.0-0.4); Eosinophils Percent Auto 1.1 % (0-4); Hematocrit 39.3 % (37.0-47.0); Hemoglobin 12.6 g/dl (12.0-16.0); Imm Gran Abs Auto 0.03 X10*3/uL (0.00-0.03); Imm Gran Pct Auto 0.4 % (0.0-0.4); Lymphocytes Absolute Auto 2.6 X10*3/uL (1.2-4.9); Lymphocytes Percent Auto 32.3 % (20-40); Mean Corpuscular HGB Conc 32.1 g/dl (31.0-35.0); Mean Corpuscular Volume 84.3 fL (80.0-98.0); Mean Platelet Volume 8.8 fL (9.4-12.3); Monocytes Absolute Auto 0.4 X10*3/uL (0.1-1.2); Monocytes Percent Auto 5.2 % (2-11); Neutrophils Absolute Auto 4.8 x10*3/uL (2.0-8.3); Neutrophils Percent Auto 59.9 % (45-73); Platelet Count 320 X10*3/uL (160-400); Red Blood Count 4.66 X10*6/uL (4.20-5.50); Red Cell Distribution Width 19.9 % (11.0-16.0)
--- NOTE | 2023-01-25 06:45 | MHC.EDTECH ---
Addendum entered by Sruthi Pascual 01/25/23 06:47: and call arciniega in reach. Original Note: This tech assumed care of patient at 0625,Vitals,Labs,EKG and Urine obtained. patient is resting at this time a
[2023-01-25 07:00] LABS: Alanine Aminotransferase 10 U/L (0-31); Albumin Level 4.1 g/dL (3.5-5.0); Alkaline Phosphatase 74 U/L (39-117); Anion Gap 16 (12-20); Aspartate Amino Transferase 14 U/L (5-31); Bilirubin Total 0.3 mg/dL (0.0-1.0); Blood Urea Nitrogen 6 mg/dL (9-16); Carbon Dioxide 24 mmol/L (22-29); Chloride 103 mmol/L (96-108); Creatinine Clr Calc Pharmacy 103.6; Estimated Glomerular Filt Rate > 60; Ethanol 16 mg/dL; Glucose Random 116 mg/dL (60-115); Potassium 3.9 mmol/L (3.3-5.1); Sodium 139 mmol/L (135-145)
[2023-01-25 07:02] LABS: Amphetamine Screen Urine Not Detected (Not Detect); Barbiturates, Urine Not Detected (Not Detect); Benzodiazepines Screen Urine Not Detected (Not Detect); Cannabinoid Screen Urine Not Detected (Not Detect); Cocaine Screen Urine Not Detected (Not Detect); Fentanyl, urine Not Detected (Not Detect); Opiate Screen Urine Not Detected (Not Detect); Phencyclidine Screen Urine Not Detected (Not Detect)
[2023-01-25] MEDS: 0.9 % Sodium Chloride 1,000 ML 999 ML IV ×2 (07:29→09:21)
[2023-01-25] MEDS: LORazepam 2 MG/ML VIAL IVPUSH (07:36)
[2023-01-25] MEDS: Pantoprazole Sodium 40 MG/10 ML VIAL IVPUSH (07:36)
[2023-01-25] MEDS: Lidocaine HCl Viscous 2 % 15 ML SOLUTION MUCOUS MEM (07:37)
[2023-01-25] MEDS: Magnesium Hydrox/Alum Hydrox 30 ML ORAL.SUSP 15 ML PO (07:37)
[2023-01-25 09:43] VITALS: BP 112/48; PULSE 86; RESP 23; TEMP 36.9; O2SAT 100
--- NOTE | 2023-01-25 11:47 | MHC.CARE ---
Pt is a 52 y/o, single, [place] speaking, female who is previously unknown to the CARE Team.? ??Today, pt presented to the ED with a complaint of depression after an episode of binge drinking for approximately 5 days.?? Pt reports recent life stressors such as her son being out of state helping a family member, school stress, and having difficulty with her adult children having left the home.? Pt has a hx of alcohol use. Pt is alert and oriented x4 and is assessed in her room in the Main ED.? She is dressed in hospital attire, appears her stated age, with unremarkable grooming.? Pt engages easily with CARE Team, is polite, and pleasant.? Her speech and eye contact are unremarkable.? She reports her mood as ?Depressed? stating she has been sober for approximately a year and recently relapsed after her son left the state to help his aunt in [place].? Pt reports binge drinking for approximately 5 days.? Pt stated that she feels as though she has ?to start over again?.? Pt reports good sleep and appetite.? She denies AVH, HI, SI, , and self-harm urges and denies any hx of.? Pt?s thought process is linear and organized.? He affect is broad. Pt reports difficulty being an ?Empty zayra? having a hard time finding purpose.? She identifies her son as a major support and is having difficulty with him being out of state.? Given that pt is denying AVH, HI, SI, , and self-harm urges and denies any hx of her risk for intentional self-harm appears low.? Pt could benefit from a Recovery consult to describe the recovery options available to her.? Pt has expressed an interest in securing a therapist.? CARE Team will place a referral to [facility] on behalf of pt. CARE Team has spoken with the Recovery Team and they will be meeting with her.? CARE Team discussed this plan with pt?s provider ORQUIDEA Antoine.
--- NOTE | 2023-01-25 12:51 | MHC.CARE ---
Referral form sent to [facility]
--- NOTE | 2023-01-25 12:52 | MHC.RECOVSUP ---
Met with Pt in ED18 for potential ATS. Pt shares that she has been through this before and only drank because she was home alone during school vacation while her son was in [place]. Pt informs she is usually able to avoid drinking when she isn't alone for extended periods of time. Pt is not interested in ATS but was interested in a health and wellness coach and therapy. T/W provided pt with resources for recovery coaches and therapists. Pt has no other questions or concerns at this time.
== END 2023-01-25 12:31 | disposition home or self-care (01) ==
PROVIDERS: Emergency Provider Emergency Medicine; PCP Internal Medicine
DX: F10.20 Alcohol dependence, uncomplicated (principal); Y90.0 Blood alcohol level of less than 20 mg/100 ml; F41.9 Anxiety disorder, unspecified; I10 Essential (primary) hypertension; F31.9 Bipolar disorder, unspecified; F17.210 Nicotine dependence, cigarettes, uncomplicated; Z79.899 Other long term (current) drug therapy
CPT/HCPCS: 36415; 80053; 80307; 82077; 85025; 93005; 96361; 96374; 96375; 99285; J2060

== ENCOUNTER 2023-01-27 14:58 | Outpatient (REF) | payer OTHER, SELFPAY | END 2023-01-27 14:59 | disposition home or self-care (01) | LOC: HO.MDS 14:58 | PROVIDERS: Visit Provider Internal Medicine | DX: D50.9 Iron deficiency anemia, unspecified (principal) | CPT/HCPCS: 96365; J1756 ==

== ENCOUNTER 2023-02-03 15:00 | Outpatient (REF) | payer OTHER, SELFPAY | END 2023-02-03 15:01 | disposition home or self-care (01) | LOC: HO.MDS 15:00 | PROVIDERS: Visit Provider Internal Medicine | DX: D50.9 Iron deficiency anemia, unspecified (principal) | CPT/HCPCS: 96365; J1756 ==

== ENCOUNTER → 2023-03-03 08:58 | Outpatient (BNVA) | payer OTHER, SELFPAY | PROVIDERS: PCP Internal Medicine; Visit Provider Internal Medicine | DX: I47.1 Supraventricular tachycardia (principal); F10.20 Alcohol dependence, uncomplicated | CPT/HCPCS: 99212 ==

== ENCOUNTER 2023-03-14 16:14 | Outpatient (REF) | payer OTHER, SELFPAY ==
--- NOTE | ~2023-03-14 | XR_ITS ---
EXAMINATION: XR ANKLE, LEFT CLINICAL INFORMATION: Fall, twisting injury 03/12/2023. Pain. COMPARISON: None available. TECHNIQUE: Left ankle is imaged in 3 views. FINDINGS: There is no fracture or dislocation. The ankle mortise is symmetric. The subtalar joint is unremarkable. The retrocalcaneal recess is preserved. Normal bony mineralization. There are posterior and plantar calcaneal spurs. XR/XR ankle LT min 3V IMPRESSION: - No fracture or dislocation. - Posterior and plantar calcaneal spurs.
== END 2023-03-14 16:15 | disposition home or self-care (01) ==
LOC: HO.XRAY 16:14
PROVIDERS: PCP Internal Medicine; Visit Provider Internal Medicine
DX: M25.572 Pain in left ankle and joints of left foot (principal); Z91.81 History of falling
CPT/HCPCS: 73610

== ENCOUNTER 2023-03-22 10:02 | Outpatient (REF) | payer OTHER, SELFPAY ==
[2023-03-22 15:34] LABS: CT PCR NOT DETECTED (Not Detect.); NG PCR NOT DETECTED (Not Detect.)
[2023-03-23 13:07] LABS: BV Int Neg Control Negative (Negative); BV Int Pos Control Positive (Positive)
== END 2023-03-22 10:03 | disposition home or self-care (01) ==
LOC: HO.LNP 10:02
PROVIDERS: PCP Internal Medicine; Visit Provider Advanced Practice Midwife
DX: N89.8 Other specified noninflammatory disorders of vagina (principal)
CPT/HCPCS: 0353U; 87480; 87510; 87660; 99212

== ENCOUNTER 2023-05-19 10:04 | Outpatient (AMB) | payer OTHER, SELFPAY ==
--- NOTE | 2023-05-19 10:07 | MHC.OFFVIS ---
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 Scribed for SHAKA Spivey by Delmi Johnson medical case worker, on 05/19/2023 at 10:23 am EST. Information Interpreted: non-clinical & clinical Allergies morphine Adverse Reaction (Unknown, Verified 05/19/23 10:17) withdrawals/sweats Is last menstrual period known: Yes Last menstrual period: 03/12/23 Post menopausal: Yes Patient : No HPI HPI Comments History of Present Illness Details She is a premenopausal woman presenting for annual exam. Complains of hot flashes. She believes she has a UTI and took a old [id number]-6-4 dose already. Patient admits she tries to eat a healthy diet including Calcium and Vitamin D. Exercise is limited due to ankle injury. Reports monthly menses last 3-5 days. Currently not sexually active. Denies vaginal itching. STD screening offered; she accepts. Denies family hx of colon and ovarian cancer. Last pap smear 12/30/17. Last mammogram 01/13/23. UTD on colonoscopy. [facility] Medical History Alcoholism Anxiety Benign essential hypertension Bipolar 1 disorder Bipolar disorder Cardiac arrhythmia Depression Family history of breast cancer Hot flashes Hx of esophageal ulcer Left shoulder pain Low back pain Obesity (BMI 30-39.9) Paresthesia of left upper extremity Potential exposure to STD Pure hypercholesterolemia SVT (supraventricular tachycardia) Venous insufficiency of both lower extremities Vitamin D deficiency Surgical History History of breast augmentation History of incisional hernia repair Hx of section Hx of colonoscopy Hx of endoscopy Hx of gastrostomy (~04/2002) Hx of nasal septoplasty Family History Father Esophagus cancer, Onset Age: 63 Mother Breast cancer, Onset Age: 46 Maternal Grandfather Cancer Paternal Aunt Breast cancer Maternal Aunt Breast cancer Social History Household Members: None Housing: House Alcohol intake: current Alcohol intake frequency: other Alcohol type: beer and wine Patient Tobacco Use Status: Former Tobacco user Years Smoked: rarely- occasional smoker e-Cigarette/Vaping Use: Never Used Second Hand Smoke Exposure: Yes service: No Current occupational status: employed Cognitive needs: No Hearing needs: No Vision needs: Yes Female Reproductive History Menstrual Duration of menses: 6-7 days Date of last menstrual period: 03/12/23 control method: none Total pregnancies: 3 Full term: 3 Number of Living Children: 3 Ab spontaneous: 1 Date of last pap smear: 12/30/17 (neg pap and hpv) Date of Mammogram: 01/13/23 (Birad 1) Physical Exam Vital Signs: Last Vital Signs BP 110/72 05/19/23 10:09 BMI result Body Mass Index 33.6 Const General: cooperative, healthy appearing, no acute distress, well developed and alert Orientation/consciousness: patient oriented x3 HEENT Head: Yes normal to inspection Eyes General: appearance normal, both eyes and all related structures Neck Neck: Yes normal visual inspection Thyroid: Thyroid normal Chest Chest palpation & inspection: normal inspection of the chest Breast/axilla inspection: normal inspection of the breasts (no puckering, dimpling, peau de orange, retraction, discharge, masses) Breast/axilla palpation: normal palpation of the breasts Resp Effort & Inspection: normal respiratory effort GI Inspection: Yes normal to inspection and Yes obesity Palpation (GI): Soft to palpation (to palpation) Rectal Exam - Female: deferred General: Yes bladder normal to inspection External Female Exam: normal external appearance and normal appearance of the urethra Speculum Exam - Vagina: normal appearance of the vagina, normal palpation and normal vaginal discharge Speculum Exam - Cervix: normal appearance of the cervix and normal palpation Bimanual exam- vagina & uterus: normal palpation and normal palpation Bimanual Exam- Adnexa, other: normal adnexae and no masses Skin General skin exam: no rashes or lesions noted Neuro General: patient oriented x3 Cognition (Neuro): normal cognition Extrem General: Yes normal to inspection Psych Attitude: cooperative Thought process: Normal thought process present Results AMB Urinalysis, Automated UA Leukoctes 1 Evelin/uL Last Edit by SIOBHAN Robles on 05/19/23 10:41 UA Nitrite Negative Last Edit by Aspen Lashawn Crisostomo A on 05/19/23 10:41 UA Urobilinogen 0 mg/dL Last Edit by Aspen Crisostomo A on 05/19/23 10:41 UA Protein 0 mg/dL Last Edit by Aspen Lashawn Crisostomo, A on 05/19/23 10:41 UA pH 7.0 Last Edit by Aspenjeff Cirsostomo A on 05/19/23 10:41 UA Blood 0 Jorden/uL Last Edit by Aspen Lashawn Crisostomo, A on 05/19/23 10:41 UA Specific [place] 1.010 Last Edit by Aspenjeff Crisostomo A on 05/19/23 10:41 UA Ketone Negative Last Edit by Aspen Lashawn Crisostomo A on 05/19/23 10:41 UA Bilirubin 0 mg/dL Last Edit by Aspen Crisostomo A on 05/19/23 10:41 UA Glucose 0 mg/dL Last Edit by Aspen Crisostomo A on 05/19/23 10:41 Results Reviewed Results Reviewed: Laboratory Last Values Urine pH (Auto) 7.0 05/19/23 10:24 Specific [place] (Auto) 1.010 05/19/23 10:24 Urine Protein (Auto) 0 mg/dL 05/19/23 10:24 Glucose (UA)(Auto) 0 mg/dL 05/19/23 10:24 Urine Ketones (Auto) Negative 05/19/23 10:24 Urine Blood (Auto) 0 Jorden/uL 05/19/23 10:24 Urine Nitrite (Auto) Negative 05/19/23 10:24 Urine Bilirubin (Auto) 0 mg/dL 05/19/23 10:24 Urine Urobilinogen (Auto) 0 mg/dL 05/19/23 10:24 Leukocyte Esterase (Auto) 1 Evelin/uL 05/19/23 10:24 Assessment & Plan Assessment & Plan (1) Encounter for well woman exam: Code(s): Z01.419 - Encounter for gynecological examination (general) (routine) without abnormal findings Plan: Discussed: Current recommendations for pap smears per ASCCP guidelines. Breast awareness and periodic self breast exams. Encouraged yearly mammograms. Maintaining a healthy lifestyle including a well balanced diet including Calcium and Vitamin D and routine exercise. All of her questions and concerns were addressed to the best of my ability RTO in 1 year for AG. (2) Hot flashes: Code(s): R23.2 - Flushing Plan: Counseled on hot flashes. Avoid spicy foods and alcohol. Wear light, layered clothing. Sleep with fan on. Can also try a cooling pillow or mattress. Stay well hydrated. Counseled re: perimenopause vs menopause. Monitor periods, report any unscheduled bleeding, bleeding episodes less than 21 days apart or heavy prolonged menstrual bleeding. Discussed with the patient the benefits and the risks of hormonal replacement therapy. (3) Potential exposure to STD: Code(s): Z20.2 - Contact with and (suspected) exposure to infections with a predominantly sexual mode of transmission Plan: BV testing and GC/CT panel done today. Await results and treat accordingly. Orders: Orders Urine Culture Today R82.998 - Other abnormal findings in urine Bacterial Vaginosis Panel Today Z20.2 - Contact with and (suspected) exposure to infections with a predominantly sexual mode of transmission CT NG by PCR Today Z20.2 - Contact with and (suspected) exposure to infections with a predominantly sexual mode of transmission AMB Urinalysis Automated Today Z13.9 - Encounter for screening, unspecified Pap Smear Today Z01.419 - Encounter for gynecological examination (general) (routine) without abnormal findings Coding Level of Care Code Est Pt Prev Care 40-64y(40762) Diagnoses Encounter for well woman exam Z01.419 Hot flashes R23.2 Potential exposure to STD Z20.2
[2023-05-19 10:09] VITALS: BP 110/72; BMI 33.6
== END 2023-05-19 10:49 | disposition home or self-care (01) ==
LOC: HO.HWS 10:05
PROVIDERS: PCP Internal Medicine; Visit Provider Advanced Practice Midwife
DX: Z01.419 Encounter for gynecological examination (general) (routine) without abnormal findings (principal); R23.2 Flushing; Z20.2 Contact with and (suspected) exposure to infections with a predominantly sexual mode of transmission; Z13.9 Encounter for screening, unspecified
CPT/HCPCS: 99396

== ENCOUNTER 2023-05-19 10:04 | Outpatient (REF) | payer OTHER, SELFPAY ==
[2023-05-19 16:15] LABS: CT PCR NOT DETECTED (Not Detect.); NG PCR NOT DETECTED (Not Detect.)
[2023-05-20 15:16] LABS: BV Int Neg Control Negative (Negative); BV Int Pos Control Positive (Positive)
== END 2023-05-19 10:05 | disposition home or self-care (01) ==
LOC: HO.LAB 10:04
PROVIDERS: PCP Internal Medicine; Visit Provider Advanced Practice Midwife
DX: Z01.419 Encounter for gynecological examination (general) (routine) without abnormal findings (principal); R23.2 Flushing; Z20.2 Contact with and (suspected) exposure to infections with a predominantly sexual mode of transmission; R82.998 Other abnormal findings in urine
CPT/HCPCS: 0353U; 81003; 87086; 87480; 87510; 87660

== ENCOUNTER 2023-05-19 10:24 | Outpatient (REF) | payer OTHER, SELFPAY ==
[2023-05-23 20:34] LABS: HPV mRNA E6/E7 rflx Not Detected (Not Detected)
== END 2023-05-19 10:25 | disposition home or self-care (01) ==
LOC: HO.LNP 10:24
PROVIDERS: Visit Provider Advanced Practice Midwife
DX: Z01.419 Encounter for gynecological examination (general) (routine) without abnormal findings (principal); Z11.51 Encounter for screening for human papillomavirus (HPV)
CPT/HCPCS: 87624; 88142

== ENCOUNTER 2023-05-30 17:03 | Outpatient (AMB) | payer OTHER, SELFPAY ==
--- NOTE | 2023-05-30 17:04 | A.OFFPC_ITS ---
Vital Signs 05/30/23 17:05 Height 5 ft 6 in Weight 204 lb BMI 32.9 BP 116/78 Blood Pressure Location Lt brachial Position Sitting Pulse 81 Pulse Source Pulse Oximeter Pulse Oximetry (%) 96 Oxygen Delivery Method Room Air Intake Visit Reasons: PE Claims Analyst Required: No Accompanied by: Self / Same As Patient Allergies morphine Adverse Reaction (Unknown, Verified 05/30/23 17:37) withdrawals/sweats Medication List - Last Reconciled 05/30/23 by Vishal Brock MD albuterol sulfate 90 mcg/actuation (ProAir HFA) 2 puffs inhalation Q6H PRN 30 days cholecalciferol (vitamin D3) 25 mcg PO DAILY 90 days fluoxetine 20 mg PO DAILY fluticasone propion-salmeterol 45-21 mcg/actuation (Advair HFA) 2 puffs inhalation BID fluticasone propionate 50 mcg/actuation 2 sprays intranasal DAILY PRN 30 days lansoprazole 30 mg PO DAILY lorazepam 1 mg PO Q12H PRN 90 days magnesium oxide 500 mg PO DAILY meloxicam 15 mg PO DAILY PRN 90 days metoprolol succinate ER 50 mg PO DAILY 90 days metronidazole 0.75%(37.5mg/5gram) 1 appful vaginal BID 5 days metronidazole 500 mg PO BID 7 days phenazopyridine (Pyridium) 100 mg PO TID PRN 6 doses sulfamethoxazole-trimethoprim 800-160 mg (Bactrim DS) 1 tab PO BID 7 days Tobacco use date assessed: 05/30/23 Dental Screening Dental Screen Date: 05/30/23 Did you have a dental visit in the last 12 months?: Yes Did you have a dental problem in the last 6 months where you did not have access to dental care?: No Was dental information given to patient?: Patient has dentist HPI PE HPI Details Patient comes in today for her annual physical examination States that she continues to experiencing pain in her left ankle and her ankle feels unstable and weak and she is afraid of falling as a result when she is walking States that she just received a notice from her insurance company a few days ago that her MRI was approved - has not been scheduled yet Also relates (+) recurrent bilateral leg cramps/pain - states that she has been taking her Magnesium tablets BID instead of QD and that the BID dosing has been helping a lot States that she feels okay otherwise She denies any headaches or dizziness Denies any chest pains, no SOB No nausea/vomiting, no abdominal pain No change in bowel habits noted Denies any acute urinary symptoms Was just seen by her pulling unit 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 a couple of weeks ago Is not yet due for her repeat colonoscopy - due next year in 2023 Had her annual mammogram done in January 2023; will be due for repeat in 1 year States that she needs her Lorazepam Rx refilled Has no recent follow up labs done although she did have a urinalysis and CBC done recently [facility] Medical History Alcoholism Anxiety Benign essential hypertension Bipolar 1 disorder Bipolar disorder Cardiac arrhythmia Depression Family history of breast cancer Hot flashes Hx of esophageal ulcer Left shoulder pain Low back pain Obesity (BMI 30-39.9) Paresthesia of left upper extremity Potential exposure to STD Pure hypercholesterolemia SVT (supraventricular tachycardia) Venous insufficiency of both lower extremities Vitamin D deficiency Surgical History History of breast augmentation History of incisional hernia repair Hx of section Hx of colonoscopy Hx of endoscopy Hx of gastrostomy (~04/2002) Hx of nasal septoplasty Family History Father Esophagus cancer, Onset Age: 63 Mother Breast cancer, Onset Age: 46 Maternal Grandfather Cancer Paternal Aunt Breast cancer Maternal Aunt Breast cancer Social History Household Members: None Housing: House Alcohol intake: current Alcohol intake frequency: other Alcohol type: beer and wine Patient Tobacco Use Status: Former Tobacco user Years Smoked: rarely- occasional smoker e-Cigarette/Vaping Use: Never Used Second Hand Smoke Exposure: Yes service: No Current occupational status: employed Cognitive needs: No Hearing needs: No Vision needs: Yes Questionnaire PHQ-9 Over the last 2 weeks, how often have you been bothered by any of the following problems? 1. Little interest or pleasure in doing things: not at all 2. Feeling down, depressed, or hopeless: not at all 3. Trouble falling or staying asleep, or sleeping too much: not at all 4. Feeling tired or having little energy: not at all 5. Poor appetite or overeating: not at all 6. Feeling bad about yourself - or that you are a failure or have let yourself or your family down: not at all 7. Trouble concentrating on things, such as reading the newspaper or watching television: not at all 8. Moving or speaking so slowly that other people could have noticed. Or the opposite - being so fidgety or restless that you have been moving around a lot more than usual: not at all 9. Thoughts that you would be better off or of hurting yourself in some way: not at all Total score: 0 Depression Screening Interpretation: Negative (is on Rx) 01069 - PHQ-9 Billing: Yes Source: Developed by Drs. Jack Hyde, Bertha Washington, Lon Tijerina and colleagues, with an educational nayeli from [employer] Thrive Questionnaire Date Thrive assessed: 05/30/23 I am a: Patient What is your living situation today?: I have a steady place to live Within the past 12 months, did the food you bought not last and you didn't have the money to get more?: Never true Within the past 12 months, did you worry whether your food would run out before you got money to buy more?: Never true Do you have trouble paying for medicines?: No Do you have trouble getting transportation to medical appointments?: No Do you have trouble paying your heating and electricity bill?: No Do you have trouble taking care of your child, family member or friend?: No Do you have trouble with day-to-day activities such as bathing, preparing meals, shopping, managing finances, etc.?: No Are you currently unemployed and looking for a job?: No Are you interested in more education?: No Please select the resources that you would like help with: None Currently or been in a relationship where the following occur: no concerns reported AUDIT C Alcohol Use Questionnaire (AUDIT-C) 1. How often do you have a drink containing alcohol?: Monthly or less 2. How many drinks containing alcohol do you have on a typical day when you are drinking?: 1 or 2 3. How often do you have six or more drinks on one occasion?: Never Total Score: 1 Score Reviewed/Action Taken: Yes DARBY-7 AMB Questionnaire DARBY-7 Date DARBY - 7 assessed: 05/30/23 Feeling nervous, anxious, or on edge: 0 = Not at all Not being able to stop or control worryin = Not at all Worrying too much about different things: 0 = Not at all Trouble relaxin = Not at all Being so restless that it is hard to sit still: 0 = Not at all Becoming easily annoyed or irritable: 0 = Not at all Feeling afraid as if something awful might happen: 0 = Not at all Total DARBY-7 score (0-4 normal; 5-9 mild; 10-14 moderate; 15-21 severe): 0 Source: Developed by Drs. Jack Hyde, Bertha Washington, Lon Tijerina and colleagues, with an educational nayeli from [employer] Review of Systems Const Denies chills, Denies difficulty sleeping, Denies fatigue, Denies fever(s) and Reports headache(s) (on and off, mostly over the frontal and forehead areas) Eyes Denies blurry vision, Denies change in vision, Denies irritation, Denies itchy eyes and Denies eye pain ENT Denies dysphagia, Denies dizziness, Denies otalgia, Reports headache(s) (on and off, mostly over the frontal and forehead areas), Reports neck pain (at times), Denies odynophagia and Denies sore throat Card Denies chest pain, Denies rapid heart rate, Denies irregular heart rhythm, Denies palpitations and Denies dyspnea Resp Denies chest congestion, Denies cough, Denies dyspnea and Denies wheezing GI Denies abdominal pain, Denies bloating, Denies constipation, Denies dysphagia, Denies heartburn, Denies diarrhea, Denies nausea, Denies odynophagia and Denies vomiting Denies hematuria, Denies urinary frequency, Reports hot flashes (recurrent), Denies dysuria, Denies urinary incontinence and Denies urinary urgency Musc Reports back pain (on and off, over the thoracic spine), Reports arthralgias (over the left ankle and of the left big toe recently - see HPI for details), Reports joint swelling (left ankle), Reports muscle cramps (on and off in both legs, worse at night and in AM), Reports neck pain (at times) and Reports numbness (occasionally, of the left arm) Skin/Breast Denies breast pain, Denies breast mass, Denies change in pigmentation, Denies lesions, Denies rash and Denies unusual bruising Neuro Denies dizziness, Reports headache(s) (on and off, mostly over the frontal and forehead areas), Reports numbness (occasionally, of the left arm) and Denies paresthesias Psych Reports anxiety and Denies depression Endo Denies fatigue and Denies palpitations Jomar/Lymph Denies easy bruising Aller/Immun Denies itchy eyes and Denies wheezing Physical exam (Primary Care) Vital Signs: Last Vital Signs Pulse 81 05/30/23 17:05 BP 116/78 05/30/23 17:05 Pulse Ox 96 05/30/23 17:05 Oxygen Delivery Method Room Air 05/30/23 17:05 BMI result Body Mass Index 32.9 Tobacco/Smoking Status: Tobacco use Status Tobacco use date assessed 05/30/23 05/30/23 17:09 Patient Tobacco Use Status Former Tobacco user 05/30/23 17:09 Tobacco use type 05/19/23 10:52 e-Cigarette/Vaping Use Never Used 05/30/23 17:09 PHQ-9: PHQ-9 Score PHQ-9: Total score 0 05/30/23 17:42 Depression Screening Interpretation: Negative (is on Rx) Thrive Assessment: Date of Thrive Assessment Date Thrive assessed 05/30/23 05/30/23 17:13 Currently or been in a relationship where the following occur: no concerns reported Const General: no acute distress, alert and awake Orientation/consciousness: patient oriented x3 HENMT Head: Yes normocephalic and Yes atraumatic Ears: external ears normal, TM's normal bilaterally and EAC's normal General nose exam: No nasal discharge present Face and sinus: Yes normal facial exam and Yes sinuses nontender Teeth and gingiva: dentition normal Throat: Yes posterior oropharynx normal and Yes tonsils normal (no TP congestion) Eyes Eyelids: Yes eyelids normal Conjunctivae: conjunctivae normal Pupils: Equal, round and reactive pupils present EOM: EOMs intact bilaterally Neck Neck: Yes no lymphadenopathy and Yes supple Thyroid: Thyroid normal Resp Auscultation: clear to auscultation bilaterally, no rales and no wheezes Cardio Rate: regular rate Rhythm: regular rhythm Heart sounds: no murmurs GI Palpation (GI): Soft to palpation, nontender and No hepatosplenomegaly present Auscultation: normal bowel sounds General: Yes no CVA tenderness Back/Spine/Pelvis Back: no CVA tenderness Cervical Spine: Cervical spine tenderness (mild) Thoracic/Lumbar Spine: thoracic spinal tenderness (mild) Skin Lesions: no lesions Rashes: no rashes Neuro General: patient oriented x3, moves all extremities, no focal motor deficits and CN's II-XI intact bilaterally Cranial nerves: Yes Equal, round and reactive pupils present Cognition (Neuro): normal cognition Extrem General: Yes no clubbing, cyanosis or edema Left lower extremity: ankle Details: tenderness Location: anterolaterally and swelling (mild) Details: diffusely and foot Details: normal to inspection and no edema Results Reviewed Results Reviewed: Laboratory Tests 03/22/23 03/22/23 14:58 14:58 WBC 9.1 Hgb 14.2 Hct 43.7 Plt Count 300 Ferritin 54 Assessment and Plan Assessment & Plan (1) Annual physical exam: Code(s): Z00.00 - Encounter for general adult medical examination without abnormal findings Plan: Check labs She is up-to-date with her cancer screenings, including colonoscopy, mammogram and pap smear (2) Left ankle pain: Comment: S/P fall 2 days ago on 03/11/23 Code(s): M25.572 - Pain in left ankle and joints of left foot Qualifiers: Chronicity: acute Qualified Code(s): M25.572 - Pain in left ankle and joints of left foot Plan: X-rays of the left ankle done back in March 2023 revealed (+) posterior and plantar calcaneal spurs with no acute fractures or lesions She was recently approved for an MRI of the ankle - this is still awaiting scheduling (3) Benign essential hypertension: Code(s): I10 - Essential (primary) hypertension Plan: Reinforced low sodium diet Continue Metoprolol ER 50 mg QD (4) Cardiac arrhythmia: Code(s): I49.9 - Cardiac arrhythmia, unspecified Qualifiers: Arrhythmia type: unspecified cardiac arrhythmia Qualified Code(s): I49.9 - Cardiac arrhythmia, unspecified Plan: Most likely occasional SVTs - extended Holter monitor done last year revealed only occasional SVTs that did not correlate with patient's symptoms Her palpitations have reportedly not occurred in a while now Is on Metoprolol ER, which helps keep her symptoms in check; may increase dose if symptoms recur Follow-up with cardiology as scheduled (5) Pure hypercholesterolemia: Code(s): E78.00 - Pure hypercholesterolemia, unspecified Plan: Will recheck her labs and fasting lipids for follow up Is reminded again that her cholesterol level was still high on her labs done last July 2022 although they have improved from a year ago Reinforced low cholesterol diet Have recommended that she start on Rx to help lower her cholesterol in the past but patient declined and would like to continue with diet modification for a few more months - is willing to start Rx if her numbers do not improve with diet modification (6) Anemia: Code(s): D64.9 - Anemia, unspecified Qualifiers: Anemia type: iron deficiency Iron deficiency anemia type: unspecified iron deficiency Qualified Code(s): D50.9 - Iron deficiency anemia, unspecified Plan: Due to iron deficiency as her iron level was low when checked a few months ago Patient states that she could not tolerate oral iron supplements in the past She was referred hematology for consideration for IV iron infusion - was seen by hematology back in December 2022 and has received Venofer infusion 200 mg weekly x 5 doses Her anemia has improved/corrected since, with her most recent CBC done on 03/22/23 showing a normal H/H at 14.2/43.7 Follow up with hematology as scheduled (7) GERD (gastroesophageal reflux disease): Code(s): K21.9 - Gastro-esophageal reflux disease without esophagitis Qualifiers: Esophagitis presence: without esophagitis Qualified Code(s): K21.9 - Gastro-esophageal reflux disease without esophagitis Plan: Dietary restrictions reinforced Continue Lansoprazole 30 mg QD and Sucralfate 1 gm BID Follow up with GI as scheduled (8) IBS (irritable bowel syndrome): Code(s): K58.9 - Irritable bowel syndrome without diarrhea Qualifiers: Irritable bowel syndrome type: unspecified Qualified Code(s): K58.9 - Irritable bowel syndrome without diarrhea Plan: Continue Dicyclomine 10 mg QID PRN; also takes Compazine 5 mg TID PRN Follow up with GI as scheduled (9) Thoracic spondylosis: Comment: 2013 thoracic spine xray shows spondylosis and multilevel osteophytes so consider repeat study and possible MRI of spine for her continued pain not r/t eating or bowel movement. Code(s): M47.814 - Spondylosis without myelopathy or radiculopathy, thoracic region Plan: Reinforced activity and weight-lifting restrictions Continue Cyclobenzaprine 10 mg TID PRN and Meloxicam 15 mg QD with food PRN (10) Paresthesia of left upper extremity: Code(s): R20.2 - Paresthesia of skin Plan: States that her left arm symptoms have been stable lately and are much milder in severity Cervical spine x-rays done a few months ago revealed only mild cervical spondylolysis; x-rays of the left shoulder came back normal WIll consider referring to physical therapy if symptoms persist or get worse (11) Vitamin D deficiency: Code(s): E55.9 - Vitamin D deficiency, unspecified Plan: Continue Vitamin D3 1000 units QD (12) Venous insufficiency of both lower extremities: Code(s): I87.2 - Venous insufficiency (chronic) (peripheral) Plan: S/P laser venous ablation of both legs with Dr. Noreen Leon (right leg in late November 2022 and left leg in January 2023) Follow up with vascular surgery as scheduled (13) Bilateral leg cramps: Code(s): R25.2 - Cramp and spasm Plan: Continue Magnesium tablets 500 mg BID Will need to consider work up and Tx for RLS if symptoms persist (14) Alcoholism: Code(s): F10.20 - Alcohol dependence, uncomplicated Plan: Counseled again on staying sober Continue Chlordiazepoxide 25 mg 2 tabs every 6 to 8 hours PRN and Naltrexone 50 mg QD; continue Magnesium Oxide 500 mg BID - states that the magnesium tablets helps with her leg cramps as well (15) Anxiety: Code(s): F41.9 - Anxiety disorder, unspecified Plan: Continue Lorazepam 1 mg 1/2 to 1 tablet BID PRN (16) Bipolar disorder: Code(s): F31.9 - Bipolar disorder, unspecified Qualifiers: Active/Remission status: currently active Current bipolar episode type: depressed Current episode severity: unspecified Qualified Code(s): F31.30 - Bipolar disorder, current episode depressed, mild or moderate severity, unspecified Plan: Continue Fluoxetine 20 mg QD Follow up with psychiatry as scheduled (17) Obesity (BMI 30-39.9): Code(s): E66.9 - Obesity, unspecified Plan: Reinforced diet/exercise as tolerated/lose weight Plan Follow up in 6 months Orders: Orders Vitamin B12 and Folate Today E53.8 - Deficiency of other specified B group vitamins, R25.2 - Cramp and spasm, Z00.00 - Encounter for general adult medical examination without abnormal findings Comprehensive Hazel. Panel Fast Today E78.00 - Pure hypercholesterolemia, unspecified, R25.2 - Cramp and spasm, Z00.00 - Encounter for general adult medical examination without abnormal findings Lipid Panel Today E78.00 - Pure hypercholesterolemia, unspecified, R25.2 - Cramp and spasm, Z00.00 - Encounter for general adult medical examination without abnormal findings Magnesium Today E83.42 - Hypomagnesemia, R25.2 - Cramp and spasm, Z00.00 - Encounter for general adult medical examination without abnormal findings TSH reflex Free T4 Today E78.00 - Pure hypercholesterolemia, unspecified, R25.2 - Cramp and spasm, Z00.00 - Encounter for general adult medical examination without abnormal findings Vitamin D 25-OH Total Today E55.9 - Vitamin D deficiency, unspecified, R25.2 - Cramp and spasm, Z00.00 - Encounter for general adult medical examination without abnormal findings UA CC w/rflx Micro + Cult Today R25.2 - Cramp and spasm, R30.0 - Dysuria, Z00.00 - Encounter for general adult medical examination without abnormal findings Medications: Changed From magnesium oxide 500 mg PO DAILY 90 tabs 3RF To magnesium oxide 500 mg PO BID 30 days 60 tabs 5RF Refilled lorazepam 1 mg PO Q12H 90 days PRN 180 tabs 0RF anxiety F41.9 - Anxiety disorder, unspecified Coding Level of Care Code Est Pt Prev Care 40-64y(28014) Diagnoses Annual physical exam Z00.00 Left ankle pain M25.572 Chronicity: acute Benign essential hypertension I10 Cardiac arrhythmia I49.9 Arrhythmia type: unspecified cardiac arrhythmia Pure hypercholesterolemia E78.00 Anemia D50.9 Anemia type: iron deficiency Iron deficiency anemia type: unspecified iron deficiency GERD (gastroesophageal reflux disease) K21.9 Esophagitis presence: without esophagitis IBS (irritable bowel syndrome) K58.9 Irritable bowel syndrome type: unspecified Thoracic spondylosis M47.814 Paresthesia of left upper extremity R20.2 Vitamin D deficiency E55.9 Venous insufficiency of both lower extremities I87.2 Bilateral leg cramps R25.2 Alcoholism F10.20 Anxiety F41.9 Bipolar disorder F31.30 Active/Remission status: currently active Current bipolar episode type: depressed Current episode severity: unspecified Obesity (BMI 30-39.9) E66.9
[2023-05-30 17:05] VITALS: BP 116/78; PULSE 81; O2SAT 96; BMI 32.9
== END 2023-05-30 17:52 | disposition home or self-care (01) ==
PROVIDERS: PCP Internal Medicine; Visit Provider Internal Medicine
DX: Z00.00 Encounter for general adult medical examination without abnormal findings (principal); I10 Essential (primary) hypertension; K21.9 Gastro-esophageal reflux disease without esophagitis; F41.9 Anxiety disorder, unspecified; E55.9 Vitamin D deficiency, unspecified; F10.20 Alcohol dependence, uncomplicated; K58.9 Irritable bowel syndrome, unspecified; F31.30 Bipolar disorder, current episode depressed, mild or moderate severity, unspecified; M25.572 Pain in left ankle and joints of left foot; I49.9 Cardiac arrhythmia, unspecified; E78.00 Pure hypercholesterolemia, unspecified; D50.9 Iron deficiency anemia, unspecified
CPT/HCPCS: 99396

== ENCOUNTER 2023-06-27 18:44 | Outpatient (REF) | payer OTHER, SELFPAY ==
--- NOTE | ~2023-06-27 | MR_ITS ---
EXAMINATION: MR ANKLE WITHOUT CONTRAST, LEFT CLINICAL INFORMATION: Left ankle pain and swelling following a twisting injury 4 months ago. COMPARISON: Left ankle radiographs dated 03/14/2023. TECHNIQUE: Multisequence MR imaging of the left ankle was obtained without contrast on a high-field strength scanner. FINDINGS: BONE AND ARTICULAR CARTILAGE: No acute fracture or dislocation. The ankle mortise is maintained. No marrow edema or evidence of acute osseous injury. Intact articular cartilage. No talar osteochondral lesion. ACHILLES TENDON: Intact. OTHER TENDONS: Intact. LIGAMENTS: Thickening and edema involving the dorsal talonavicular ligament with minimal adjacent soft tissue edema, consistent with a grade 2 sprain/partial tear. The remaining medial and lateral ligaments are intact. JOINT FLUID AND SOFT TISSUES: Mild dorsal and medial subcutaneous edema. No soft tissue mass or fluid collection. No significant joint effusion. PLANTAR FASCIA: Intact. Plantar calcaneal spur. SINUS TARSI AND TARSAL TUNNEL: Patent. MR/MR ankle LT wo con IMPRESSION: Grade 2 sprain/partial tear of the dorsal talonavicular ligament.
== END 2023-06-27 18:45 | disposition home or self-care (01) ==
LOC: HO.MRI 18:44
PROVIDERS: PCP Internal Medicine; Visit Provider Internal Medicine
DX: M25.572 Pain in left ankle and joints of left foot (principal); M25.472 Effusion, left ankle
CPT/HCPCS: 73721

== ENCOUNTER 2023-08-17 15:32 | Outpatient (AMB) | payer OTHER, SELFPAY ==
[2023-08-17 15:42] VITALS: BMI 32.8
--- NOTE | 2023-08-17 15:42 | A.OFFVIS_ITS ---
Intake Vital Signs 3 08/17/23 15:42 Height 5 ft 6 in Weight 203 lb 4.259 oz BMI 32.8 Blood Pressure Location Lt brachial Position Sitting Intake Visit Reasons: 6 mnth follow up Allergies morphine Adverse Reaction (Unknown, Verified 08/17/23 15:44) withdrawals/sweats HPI 6 mnth follow up 2 HPI0 Details Assessment & Plan (1) IBS (irritable bowel syndrome): Code(s): K58.9 - Irritable bowel syndrome without diarrhea Qualifiers: Irritable bowel syndrome type: unspecified Qualified Code(s): K58.9 - Irritable bowel syndrome without diarrhea Plan: The patient was seen a couple of times in the emergency department over the past year once for anxiety the other for alcohol abuse. She is eating more yogurt, she found a vanilla brand [place] that she really likes. She is doing well on all of her medications. She utilizes lansoprazole with good control of her GERD, Creon when needed for diarrhea, and dicyclomine for cramping. She will be having VV surgery RFA soon. No other new medical problems. She is having itching and discreet round ref spots on her stomach and around the band of pants but also on her head. No exudate, fairly isolated, she will be seeing a derm soon. ROV 6 mos (2) GERD (gastroesophageal reflux diseas e): Code(s): K21.9 - Gastro-esophageal reflux disease without esophagitis Qualifiers: Esophagitis presence: without esophagitis Qualified Code(s): K21.9 - Gastro-esophageal reflux disease without esophagitis Medications: Refilled lansoprazole 30 mg PO DAILY 30 caps 6RF K21.9 - Gastro-eso phageal reflux dis ease without esoph agitis, R10.13 - E pigastric pain, Z8 5.09 - Personal hi story of malignant neoplasm of other digestive organs dicyclomine 10 mg PO QID 30 d ays 120 caps 6RF K58.9 - Irritable bowel syndrome wit hout diarrhea sucralfate 1 g PO BID 30 day s 60 tabs 6RF Laboratory Tests 01/25/23 06/22/23 06/22/23 06:38 15:18 15:18 WBC 6.8 Hgb 11.5 L Hct 35.1 L MCV 92.6 MCH 30.3 Plt Count 268 Estimated GFR > 60 Total Bilirubin 0.3 AST 14 ALT 10 Alkaline Phosphata se 74 2018 EGD/colonoscopy 01/18/19 . Findings: Terminal Ileum Not evaluated Cecum A 3-4 mm sessile polyp removed with a cold biopsy Ascending Colon Normal Transverse Colon - A 3-4 mm sessile polyp removed by cold biopsy Descending Colon Moderate diverticulosis Sigmoid Colon A 3-4 mm sessile polyp removed with a cold biopsy and moderate diverticulosis Rectum Normal Anorectum - Small internal hemorrhoids Colon preparation: Excellent Impression and Post Procedure Diagnosis: Endoscopy Findings: LARYNX: Normal ESOPHAGUS: Minimal esophagitis and a small hiatal hernia STOMACH: Gastritis and multiple gastric polyps DUODENUM: Normal Colonoscopy Findings: Three small polyps removed Moderate diverticulosis seen in the left colon Small hemorrhoids on retroflexed exam. Plan: Await pathology results Continue present medications (Omeprazole at 20 mg PO one to two times daily and Simethicone twice daily) A. Small bowel, b iopsy: Small inte stinal mucosa with in normal limits. 0 B. Stomach, biops y: Mild chronic i nactive gastritis; no Helicobacter o rganisms seen. C. Stomach polyps : Fundic gland po lyps with backgrou nd mild chronic in active inflammation; no H elicobacter organi sms seen. D. Colon, sigmoid , polypectomy: Tu bular adenoma; no high grade dysplas ia or carcinoma seen. E. Cecum, polypec nuria: Colonic muc bishop with mild surf ruben hyperplastic c hanges. F. Colon, random, biopsy: Colonic mucosa within norm al limits. G. Colon, transve rse, polypectomy: Fragments of tubu lar adenoma; no hi gh grade dysplasia or carci noma seen. TODAYS VISIT About 2 weeks ago she started having more dyspepsia epigastric pain along with intermittent diarrhea. 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 However, she also admits that she has not been consistent in taking her sucralfate or her dicyclomine even though she finds these quite helpful when she does have troubles. She has had no fevers or chills, she has had mild cramping in the lower abdomen and some nausea and poor appetite but no vomiting. She has had very small red blood on the toilet tissue at times with the diarrhea. I go over the possibilities of doing stool testing and also a possible gastric emptying study since she has had nausea on off in the past that has not been explained well by her upper endoscopies. However she really does not want to do either of these options. 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 Her last EGD was in 2020 and again did not give us any convincing reason for nausea. For now we will simply continue were on her dicyclomine and Carafate and I try to encourage her to be more consistent in the usage of her medications. Return office visit in 6 months and after her procedures. [facility] Medical History Potential exposure to STD Hot flashes Venous insufficiency of both lower extremities Pure hypercholesterolemia SVT (supraventricular tachycardia) Paresthesia of left upper extremity Cardiac arrhythmia Hx of esophageal ulcer Benign essential hypertension Low back pain Vitamin D deficiency Bipolar disorder Alcoholism Obesity (BMI 30-39.9) Anxiety Left shoulder pain Family history of breast cancer Bipolar 1 disorder Depression Surgical History History of breast augmentation Hx of nasal septoplasty History of incisional hernia repair Hx of colonoscopy Hx of section Hx of gastrostomy (~04/2002) Hx of endoscopy Family History Father Esophagus cancer, Onset Age: 63 Mother Breast cancer, Onset Age: 46 Maternal Grandfather Cancer Paternal Aunt Breast cancer Maternal Aunt Breast cancer Social History Household Members: None Housing: House Alcohol intake: current Alcohol intake frequency: other Alcohol type: beer and wine Patient Tobacco Use Status: Former Tobacco user Years Smoked: rarely- occasional smoker e-Cigarette/Vaping Use: Never Used Second Hand Smoke Exposure: Yes service: No Current occupational status: employed Cognitive needs: No Hearing needs: No Vision needs: Yes Review of Systems Const Denies fatigue, Denies fever(s), Denies night sweats, Denies poor appetite and Denies weight loss Eyes Details: glasses Reports requires corrective lenses ENT Reports Normal hearing present, Denies dental pain, Denies dysphagia, Denies hearing loss, Denies mouth pain, Denies odynophagia, Denies throat swelling, Denies tongue swelling and Reports other (Dentition adequate) Card Reports no additional complaints Resp Reports no additional complaints GI Denies abdominal pain, Denies melena, Denies bloating, Denies hematochezia, Denies constipation, Reports GI cramping, Denies dysphagia, Denies excessive flatus, Reports early satiety, Reports heartburn, Reports diarrhea, Reports nausea, Denies odynophagia, Denies vomiting and Denies hematemesis Skin/Breast Denies pruritus, Denies lesions, Denies rash and Denies jaundice Neuro Reports Normal hearing present and Denies Abnormal speech present Endo Denies fatigue Aller/Immun Denies throat swelling and Denies tongue swelling Physical Exam Vital Signs: BMI result Body Mass Index 32.8 Const General: cooperative, no acute distress, well developed and well groomed Nutritional Appearance: well nourished and obese Orientation/consciousness: oriented to person, oriented to place and oriented to time Limitations: No language barrier HEENT Head: Yes normocephalic and Yes atraumatic Eyes General: appearance normal, both eyes and all related structures Pupils: Equal, round and reactive pupils present Neck Neck: Yes normal visual inspection and Yes no lymphadenopathy Thyroid: Thyroid normal Resp Effort & Inspection: normal respiratory effort and able to speak in complete sentences Auscultation: clear to auscultation bilaterally Cardio Rate: regular rate Rhythm: regular rhythm Heart sounds: Normal, physiologic split S2 sound present Peripheral pulses: radial pulses present and posterior tibial pulses present GI Inspection: No distended, Yes Abdominal panniculus present and Yes obesity Palpation (GI): Soft to palpation, nontender, no guarding, not rigid and No hepatosplenomegaly present Percussion: Yes normal to percussion Auscultation: normal bowel sounds Rectal Exam - Female: deferred Abdomen image: 2 1. Surgical scars 2. Skin General skin exam: no rashes or lesions noted, turgor normal, skin not dry, no jaundice, No spider nevi and no striae Rashes: no rashes Nails: normal Neuro General: oriented to person, oriented to place and oriented to time Cranial nerves: Yes Equal, round and reactive pupils present and Yes Normal hearing present Speech: No Abnormal speech present Extrem General: Yes normal to inspection, No clubbing, No cyanosis and No edema Psych Appearance: grossly normal and well kempt Mental Status: mental status grossly normal Speech and movement: Normal speech and movement present Affect: normal affect Attitude: cooperative Thought process: Normal thought process present and not confabulating Thought content: Normal thought content present Insight: Limited insight present (Psych) Judgement: Limited judgement present (Psych) Results Reviewed Results Reviewed: Laboratory Tests 01/25/23 06/22/23 06/22/23 06:38 15:18 15:18 WBC 6.8 Hgb 11.5 L Hct 35.1 L MCV 92.6 MCH 30.3 Plt Count 268 Estimated GFR > 60 Total Bilirubin 0.3 AST 14 ALT 10 Alkaline Phosphatase 74 2018 EGD/colonoscopy 01/18/19 . Findings: Terminal Ileum Not evaluated Cecum A 3-4 mm sessile polyp removed with a cold biopsy Ascending Colon Normal Transverse Colon - A 3-4 mm sessile polyp removed by cold biopsy Descending Colon Moderate diverticulosis Sigmoid Colon A 3-4 mm sessile polyp removed with a cold biopsy and moderate diverticulosis Rectum Normal Anorectum - Small internal hemorrhoids Colon preparation: Excellent Impression and Post Procedure Diagnosis: Endoscopy Findings: LARYNX: Normal ESOPHAGUS: Minimal esophagitis and a small hiatal hernia STOMACH: Gastritis and multiple gastric polyps DUODENUM: Normal Colonoscopy Findings: Three small polyps removed Moderate diverticulosis seen in the left colon Small hemorrhoids on retroflexed exam. Plan: Await pathology results Continue present medications (Omeprazole at 20 mg PO one to two times daily and Simethicone twice daily) A. Small bowel, biopsy: Small intestinal mucosa within normal limits. B. Stomach, biopsy: Mild chronic inactive gastritis; no Helicobacter organisms seen. C. Stomach polyps: Fundic gland polyps with background mild chronic inactive inflammation; no Helicobacter organisms seen. D. Colon, sigmoid, polypectomy: Tubular adenoma; no high grade dysplasia or carcinoma seen. E. Cecum, polypectomy: Colonic mucosa with mild surface hyperplastic changes. F. Colon, random, biopsy: Colonic mucosa within normal limits. G. Colon, transverse, polypectomy: Fragments of tubular adenoma; no high grade dysplasia or carcinoma seen. Assessment & Plan Assessment & Plan (1) Pre-op examination: Code(s): Z01.818 - Encounter for other preprocedural examination (2) Epigastric pain: Code(s): R10.13 - Epigastric pain Plan: About 2 weeks ago she started having more dyspepsia epigastric pain along with intermittent diarrhea. 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 However, she also admits that she has not been consistent in taking her sucralfate or her dicyclomine even though she finds these quite helpful when she does have troubles. She has had no fevers or chills, she has had mild cramping in the lower abdomen and some nausea and poor appetite but no vomiting. She has had very small red blood on the toilet tissue at times with the diarrhea. I go over the possibilities of doing stool testing and also a possible gastric emptying study since she has had nausea on off in the past that has not been explained well by her upper endoscopies. However she really does not want to do either of these options. 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 Her last EGD was in 2020 and again did not give us any convincing reason for nausea. For now we will simply continue were on her dicyclomine and Carafate and I try to encourage her to be more consistent in the usage of her medications. Return office visit in 6 months and after her procedures. (3) History of gastrointestinal stromal tumor (GIST): Comment: no sign of recurrence on EGD performed 01/2019 despite biopsy of several gastric polyps Code(s): Z85.09 - Personal history of malignant neoplasm of other digestive organs (4) Tubular adenoma of colon: Comment: 2019 last 2 TA Code(s): D12.6 - Benign neoplasm of colon, unspecified (5) IBS (irritable bowel syndrome): Code(s): K58.9 - Irritable bowel syndrome without diarrhea Qualifiers: Irritable bowel syndrome type: unspecified Qualified Code(s): K58.9 - Irritable bowel syndrome without diarrhea (6) GERD (gastroesophageal reflux disease): Code(s): K21.9 - Gastro-esophageal reflux disease without esophagitis Qualifiers: Esophagitis presence: without esophagitis Qualified Code(s): K21.9 - Gastro-esophageal reflux disease without esophagitis (7) Abdominal bloating: Code(s): R14.0 - Abdominal distension (gaseous) Orders: Orders 2 EGD/[place] [facility] - GI Use Only Today D12.6 - Benign neoplasm of colon, unspecified, Z85.09 - Personal history of malignant neoplasm of other digestive organs Medications: New 2 dicyclomine 10 mg PO QID 120 caps 6RF K58.9 - Irritable bowel syndrome without diarrhea sucralfate (Carafate) 1 g PO BID 60 tabs 6RF K58.9 - Irritable bowel syndrome without diarrhea, Z85.09 - Personal history of malignant neoplasm of other digestive organs peg 3350-electrolytes 236-22.74-6.74 -5.86 gram (Golytely) until fecal effluent is clear; do not exceed a total volume of 2,000 mL 240 mL PO Q10M 1 day 4,000 mL 0RF Z12.11 - Encounter for screening for malignant neoplasm of colon Refilled 2 lansoprazole 30 mg PO DAILY 30 caps 6RF K21.9 - Gastro-esophageal reflux disease without esophagitis, R10.13 - Epigastric pain, Z85.09 - Personal history of malignant neoplasm of other digestive organs Coding Level of Care Code Est Pt Level 4 (96559) Diagnoses Pre-op examination Z01.818 Epigastric pain R10.13 History of gastrointestinal stromal tumor (GIST) Z85.09 Tubular adenoma of colon D12.6 Irritable bowel syndrome, unspecified type K58.9 Irritable bowel syndrome type: unspecified Gastroesophageal reflux disease without esophagitis K21.9 Esophagitis presence: without esophagitis Abdominal bloating R14.0
--- NOTE | 2023-08-17 15:42 | MHC.OFFVIS ---
Intake Vital Signs 08/17/23 15:42 Height 5 ft 6 in Weight 203 lb 4.259 oz BMI 32.8 Blood Pressure Location Lt brachial Position Sitting Intake Visit Reasons: 6 mnth follow up Intake Note: Patient presents to in office visit today in follow up CC: Patient reports getting epigastric pain, diarrhea, two episodes of bright red blood when wiping after BMs, and nausea. 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: No Accompanied by: Self / Same As Patient Allergies morphine Adverse Reaction (Unknown, Verified 08/17/23 15:44) withdrawals/sweats PFSH Medical History Potential exposure to STD Hot flashes Venous insufficiency of both lower extremities Pure hypercholesterolemia SVT (supraventricular tachycardia) Paresthesia of left upper extremity Cardiac arrhythmia Hx of esophageal ulcer Benign essential hypertension Low back pain Vitamin D deficiency Bipolar disorder Alcoholism Obesity (BMI 30-39.9) Anxiety Left shoulder pain Family history of breast cancer Bipolar 1 disorder Depression Surgical History History of breast augmentation Hx of nasal septoplasty History of incisional hernia repair Hx of colonoscopy Hx of section Hx of gastrostomy (~04/2002) Hx of endoscopy Family History Father Esophagus cancer, Onset Age: 63 Mother Breast cancer, Onset Age: 46 Maternal Grandfather Cancer Paternal Aunt Breast cancer Maternal Aunt Breast cancer Social History Household Members: None Housing: House Alcohol intake: current Alcohol intake frequency: other Alcohol type: beer and wine Patient Tobacco Use Status: Former Tobacco user Years Smoked: rarely- occasional smoker e-Cigarette/Vaping Use: Never Used Second Hand Smoke Exposure: Yes service: No Current occupational status: employed Cognitive needs: No Hearing needs: No Vision needs: Yes Physical Exam Vital Signs: BMI result Body Mass Index 32.8 Coding
== END 2023-08-18 09:46 | disposition home or self-care (01) ==
PROVIDERS: PCP Internal Medicine; Visit Provider Nurse Practitioner
DX: Z01.818 Encounter for other preprocedural examination (principal); Z12.11 Encounter for screening for malignant neoplasm of colon; Z85.09 Personal history of malignant neoplasm of other digestive organs; D12.6 Benign neoplasm of colon, unspecified; K58.9 Irritable bowel syndrome, unspecified; K21.9 Gastro-esophageal reflux disease without esophagitis; R14.0 Abdominal distension (gaseous)
CPT/HCPCS: S0285

== ENCOUNTER → 2023-08-17 15:32 | Outpatient (BNVA) | payer OTHER, SELFPAY | PROVIDERS: PCP Internal Medicine; Visit Provider Nurse Practitioner ==

== ENCOUNTER 2023-09-12 22:13 | Emergency (ER) | payer OTHER, SELFPAY ==
[2023-09-12 22:16] VITALS: BP 130/90; PULSE 103; RESP 20; TEMP 36.2; O2SAT 96; BMI 32.3
--- NOTE | 2023-09-12 22:36 | ED_ITS ---
HPI - Alcohol General Chief Complaint: ETOH/Substance Use Stated Complaint: heart racing/etoh Time Seen by Provider: 09/12/23 22:35 Source: patient Mode of arrival: ambulatory Limitations: no limitations History of Present Illness HPI narrative: Patient alcoholic with history of depression been drinking heavy for last 3 days feels shaky and vomiting also feels heart is racing mild epigastric pain no history of pancreatitis patient used to drink heavy in the past but slowed down but for last 3 days has increased stress and started drinking again. Does have history of SVT and depression denies any SI does not want to go to detox but like to talk to care team Related Data Home Medications Medication Instructions Recorded Confirmed metronidazole 0.75 % (37.5 mg/5 1 appful vaginal BID PRN 08/17/23 gram) vaginal gel metronidazole 500 mg tablet 500 mg PO BID PRN 08/17/23 Previous Rx's Medication Instructions Recorded albuterol sulfate 90 mcg/actuation 2 puff inhalation Q6H PRN 11/04/20 aerosol inhaler (ProAir HFA) shortness of breath or wheezing 30 days #8.5 grams fluticasone propionate 50 2 spray intranasal DAILY PRN 05/28/22 mcg/actuation nasal allergy symptoms 30 days #16 grams spray,suspension metoprolol succinate 50 mg 50 mg PO DAILY 90 days #90 tabs 10/25/22 tablet,extended release 24 hr fluticasone propionate 45 2 puff inhalation BID #8 grams 11/25/22 mcg-salmeterol 21 mcg/actuation HFA inhaler (Advair HFA) cholecalciferol (vitamin D3) 25 25 mcg PO DAILY 90 days #90 tabs 11/28/22 mcg (1,000 unit) tablet meloxicam 15 mg tablet 15 mg PO DAILY PRN pain 90 days 03/09/23 #90 tabs fluoxetine 20 mg capsule 20 mg PO DAILY #90 caps 03/23/23 phenazopyridine 100 mg tablet 100 mg PO TID PRN pain 6 doses #6 05/18/23 (Pyridium) tabs lorazepam 1 mg tablet 1 mg PO Q12H PRN anxiety 90 days 05/30/23 #180 tabs magnesium oxide 500 mg tablet 500 mg PO BID 30 days #60 tabs 05/30/23 dicyclomine 10 mg capsule 10 mg PO QID #120 caps 08/17/23 lansoprazole 30 mg capsule,delayed 30 mg PO DAILY #30 caps 08/17/23 release peg 3350-electrolytes 236 240 ml PO Q10M 1 day #4,000 mL 08/17/23 gram-22.74 gram-6.74 gram-5.86 gram solution (Golytely) sucralfate 1 gram tablet (Carafate) 1 g PO BID #60 tabs 08/17/23 Allergies Allergy/AdvReac Type Severity Reaction Status Date / Time morphine AdvReac Unknown withdrawals Verified 09/12/23 22:16 /sweats Review of Systems 2 Review of Systems: Yes all other systems are reviewed and are negative PMFSH Past Medical History Medical History Potential exposure to STD Hot flashes Venous insufficiency of both lower extremities Pure hypercholesterolemia SVT (supraventricular tachycardia) Paresthesia of left upper extremity Cardiac arrhythmia Hx of esophageal ulcer Benign essential hypertension Low back pain Vitamin D deficiency Bipolar disorder Alcoholism Obesity (BMI 30-39.9) Anxiety Left shoulder pain Family history of breast cancer Bipolar 1 disorder Depression Surgical History History of breast augmentation Hx of nasal septoplasty History of incisional hernia repair Hx of colonoscopy Hx of section Hx of gastrostomy (~04/2002) Hx of endoscopy Family History Family History Father Esophagus cancer, Onset Age: 63 Mother Breast cancer, Onset Age: 46 Maternal Grandfather Cancer Paternal Aunt Breast cancer Maternal Aunt Breast cancer Social History Social History Household Members: None Housing: House Alcohol intake: current Alcohol intake frequency: 3 or more drinks per day Alcohol type: hard liquor Patient Tobacco Use Status: Former Tobacco user Years Smoked: rarely- occasional smoker e-Cigarette/Vaping Use: Never Used Second Hand Smoke Exposure: Yes Advance Directives: No Advance Directives Information Provided: Yes service: No Current occupational status: employed Cognitive needs: No Hearing needs: No Vision needs: Yes Physical Exam ED Vital Signs: Vital Signs - 24 hr 09/12/23 22:16 09/12/23 22:51 09/12/23 23:56 Temperature 97.2 F 97.9 F Pulse Rate 103 H 81 72 Respiratory Rate 20 15 16 Blood Pressure 130/90 H 123/70 122/77 Pulse Oximetry 96 96 97 Oxygen Delivery Method Room Air Room Air Room Air 09/13/23 05:21 09/13/23 06:46 Temperature 96.9 F Pulse Rate 71 77 Respiratory Rate 18 14 Blood Pressure 126/75 109/59 L Pulse Oximetry 98 92 Oxygen Delivery Method Room Air Room Air BMI result Body Mass Index 32.3 Appearance: Alert. Oriented X3. No acute distress.etoh + Eyes: No pallor or icterus ENT: Pharynx normal. Oral Mucosa moist Neck: Normal inspection. Neck supple. CVS: Normal heart rate and rhythm. Pulses normal. Respiratory: No respiratory distress. Equal air entry bilateral, no wheezing/rales/rhonchi Abdomen: Soft , mild epigastric tenderness, Bowel sounds are present, no mass palpable, no CVA tenderness Skin: Skin warm and dry. Normal skin color. Normal skin turgor. Extremities: No lower extremity edema. No calf tenderness psych; depressed+ denies any SI/HI no hallucination or delusion Neuro: Oriented X 3. No motor deficit. No sensory deficit.No cerebellar signs , cranial nerves II-XII intact Medical Decision Making Medical Decision Making [facility] Narrative: Patient call abuse with depression requesting help with get care team to see the patient Differential Diagnosis Differential Diagnoses: The differential diagnosis associated with the presentation includes Depression/alcohol abuse Lab Data [facility] Lab Attestation statement: I reviewed the patient's lab results. 09/12/23 22:42 09/12/23 22:42 Labs: Lab Results 09/12/23 Range/Units 22:42 WBC 5.3 (4.8-10.8) X10*3/uL RBC 4.74 D (4.20-5.50) X10*6/uL Hgb 14.3 D (12.0-16.0) g/dl Hct 42.4 D (37.0-47.0) % MCV 89.5 (80.0-98.0) fL MCH 30.2 (27.0-33.0) pg MCHC 33.7 (31.0-35.0) g/dl RDW 12.5 (11.0-16.0) % Plt Count 302 (160-400) X10*3/uL MPV 9.2 L (9.4-12.3) fL Immature Gran % (Auto) 0.6 H (0.0-0.4) % Neut % (Auto) 40.2 L (45-73) % Lymph % (Auto) 50.3 H (20-40) % [place] % (Auto) 7.0 (2-11) % Eos % (Auto) 0.4 (0-4) % Baso % (Auto) 1.5 (0-2) % Lymph # (Auto) 2.7 (1.2-4.9) X10*3/uL [place] # (Auto) 0.4 (0.1-1.2) X10*3/uL Eos # (Auto) 0.0 (0.0-0.4) X10*3/uL Baso # (Auto) 0.1 (0.0-0.2) X10*3/uL Abs Immat Gran (auto) 0.03 (0.00-0.03) X10*3/uL Absolute Neuts (auto) 2.1 (2.0-8.3) x10*3/uL Absolute Nucleated RBC 0.000 (0.0-0.012) X10*3/uL Nucleated RBC % (auto) 0.0 (0.0-0.2) /100WBC PT 11.1 (11.1-13.3) SEC INR 0.9 (0.9-1.1) Sodium 141 (135-145) mmol/L Potassium 3.5 (3.3-5.1) mmol/L Chloride 106 (96-108) mmol/L Carbon Dioxide 24 (22-29) mmol/L Anion Gap 15 (12-20) BUN 5 L (9-16) mg/dL Creatinine 0.72 (0.5-1.4) mg/dL Estim Creat Clear Calc 102.5 Estimated GFR > 60 Random Glucose 145 H (60-115) mg/dL Calcium 8.8 (8.4-10.2) mg/dL Magnesium 1.9 (1.6-2.6) mg/dL Total Bilirubin 0.2 (0.0-1.0) mg/dL AST 15 (5-31) U/L ALT 20 (0-31) U/L Alkaline Phosphatase 63 (39-117) U/L Total Protein 7.0 (6.5-8.0) g/dL Albumin 4.0 (3.5-5.0) g/dL Ethyl Alcohol 144 mg/dL Medications Administered Generic Name Dose Route Start Last Admin Trade Name Freq PRN Reason Stop Dose Admin Lorazepam 2 mg 09/13/23 00:24 09/13/23 05:20 Lorazepam 1 Mg Tablet PO 2 mg RQ4H WHILE AWAKE PRN Administration Alcohol Withdrawal Discontinued Medications Generic Name Dose Route Start Last Admin Trade Name Freq PRN Reason Stop Dose Admin Famotidine 20 mg 09/12/23 22:44 09/12/23 22:49 Famotidine/Pf 20 Mg/2 Ml Vial IVPUSH 09/12/23 22:45 20 mg ONCE ONE Administration Sodium Chloride 1,000 mls @ 999 mls/hr 09/12/23 22:37 09/12/23 23:47 Ns IV 09/12/23 23:37 Infused .Q1H1M ONE Infusion Lorazepam 2 mg 09/12/23 22:44 09/12/23 22:49 Lorazepam 2 Mg/Ml Vial IVPUSH 09/12/23 22:45 2 mg ONCE ONE Administration Ondansetron HCl 4 mg 09/12/23 22:38 09/12/23 22:46 Ondansetron Hcl 4 Mg/2 Ml Vial IVPUSH 09/12/23 22:39 4 mg ONCE ONE Administration Discharge Plan Discharge Clinical Impression: Depression, Alcoholic intoxication Patient Disposition: Still a Patient Prescriptions: No Action albuterol sulfate [ProAir HFA] 90 mcg/actuation HFA aerosol inhaler 2 puff inhalation Q6H PRN (Reason: shortness of breath or wheezing) 30 Days Qty: 8.5 1RF metoprolol succinate 50 mg tablet extended release 24 hr 50 mg PO DAILY 90 Days Qty: 90 3RF Advair HFA 45-21 mcg/actuation HFA aerosol inhaler 2 puff inhalation BID Qty: 8 0RF cholecalciferol (vitamin D3) 25 mcg (1,000 unit) tablet 25 mcg PO DAILY 90 Days Qty: 90 12RF meloxicam 15 mg tablet 15 mg PO DAILY PRN (Reason: pain) 90 Days Qty: 90 1RF Rx Instructions: Take with food fluoxetine 20 mg capsule 20 mg PO DAILY Qty: 90 1RF phenazopyridine [Pyridium] 100 mg tablet 100 mg PO TID PRN (Reason: pain) Qty: 6 0RF fluticasone propionate 50 mcg/actuation spray,suspension 2 spray intranasal DAILY PRN (Reason: allergy symptoms) 30 Days Qty: 16 5RF Rx Instructions: administer into each nostril lorazepam 1 mg tablet 1 mg PO Q12H PRN (Reason: anxiety) 90 Days Qty: 180 0RF magnesium oxide 500 mg tablet 500 mg PO BID 30 Days Qty: 60 5RF metronidazole 500 mg tablet 500 mg PO BID PRN Rx Instructions: Take with food, Avoid alcohol and vinegar products metronidazole 0.75 % (37.5mg/5 gram) gel 1 appful vaginal BID PRN Rx Instructions: for use prn sucralfate [Carafate] 1 gram tablet 1 g PO BID Qty: 60 6RF dicyclomine 10 mg capsule 10 mg PO QID Qty: 120 6RF lansoprazole 30 mg capsule,delayed release(DR/EC) 30 mg PO DAILY Qty: 30 6RF peg 3350-electrolytes [Golytely] 236-22.74-6.74 -5.86 gram recon soln 240 ml PO Q10M 1 Days Qty: 4000 0RF Rx Instructions: until fecal effluent is clear; do not exceed a total volume of 2,000 mL
[2023-09-12] MEDS: 0.9 % Sodium Chloride 1,000 ML 999 ML IV (22:46)
[2023-09-12] MEDS: ondansetron HCL 4 MG/2 ML VIAL IVPUSH (22:46)
[2023-09-12] MEDS: Famotidine/PF 20 MG/2 ML VIAL IVPUSH (22:49)
[2023-09-12] MEDS: LORazepam 2 MG/ML VIAL IVPUSH (22:49)
[2023-09-12 22:50] LABS: MANUAL DIFF FLAG NO
[2023-09-12 22:51] VITALS: BP 123/70; PULSE 81; RESP 15; O2SAT 96
[2023-09-12 22:54] LABS: Basophils Absolute Auto 0.1 X10*3/uL (0.0-0.2); Basophils Percent Auto 1.5 % (0-2); Eosinophils Percent Auto 0.4 % (0-4); Hematocrit 42.4 % (37.0-47.0); Hemoglobin 14.3 g/dl (12.0-16.0); Imm Gran Abs Auto 0.03 X10*3/uL (0.00-0.03); Imm Gran Pct Auto 0.6 % (0.0-0.4); Lymphocytes Absolute Auto 2.7 X10*3/uL (1.2-4.9); Lymphocytes Percent Auto 50.3 % (20-40); Mean Corpuscular HGB Conc 33.7 g/dl (31.0-35.0); Mean Corpuscular Hemoglobin 30.2 pg (27.0-33.0); Mean Corpuscular Volume 89.5 fL (80.0-98.0); Mean Platelet Volume 9.2 fL (9.4-12.3); Monocytes Absolute Auto 0.4 X10*3/uL (0.1-1.2); Neutrophils Absolute Auto 2.1 x10*3/uL (2.0-8.3); Neutrophils Percent Auto 40.2 % (45-73); Platelet Count 302 X10*3/uL (160-400); Red Blood Count 4.74 X10*6/uL (4.20-5.50); Red Cell Distribution Width 12.5 % (11.0-16.0); White Blood Count 5.3 X10*3/uL (4.8-10.8)
[2023-09-12 22:59] LABS: INTERNATIONAL NORM RATIO 0.9 (0.9-1.1); Prothrombin Time 11.1 SEC (11.1-13.3)
[2023-09-12 23:04] LABS: Alanine Aminotransferase 20 U/L (0-31); Alkaline Phosphatase 63 U/L (39-117); Anion Gap 15 (12-20); Aspartate Amino Transferase 15 U/L (5-31); Bilirubin Total 0.2 mg/dL (0.0-1.0); Blood Urea Nitrogen 5 mg/dL (9-16); Calcium 8.8 mg/dL (8.4-10.2); Carbon Dioxide 24 mmol/L (22-29); Chloride 106 mmol/L (96-108); Creatinine Clr Calc Pharmacy 102.5; Estimated Glomerular Filt Rate > 60; Ethanol 144 mg/dL; Glucose Random 145 mg/dL (60-115); Magnesium 1.9 mg/dL (1.6-2.6); Potassium 3.5 mmol/L (3.3-5.1); Sodium 141 mmol/L (135-145)
[2023-09-12 23:56] VITALS: BP 122/77; PULSE 72; RESP 16; TEMP 36.6; O2SAT 97
[2023-09-13] MEDS: LORazepam 1 MG TABLET 2 MG PO (05:20)
[2023-09-13 05:21] VITALS: BP 126/75; PULSE 71; RESP 18; O2SAT 98
[2023-09-13 06:46] VITALS: BP 109/59; PULSE 77; RESP 14; TEMP 36.1; O2SAT 92
[2023-09-13 08:11] VITALS: BP 127/84; PULSE 73; RESP 18; O2SAT 97
--- NOTE | 2023-09-13 09:20 | PC.NURSE ---
Velma from care team at bedside talking with pt
[2023-09-13 11:09] VITALS: BP 120/67; PULSE 79; RESP 18; O2SAT 99
[2023-09-13 11:25] LABS: Appearance Urine Turbid; Color Urine Dark Yellow; Glucose Urine UA Negative (Negative); Leukocyte Esterase Urine Trace (Negative); Nitrite Urine Negative (Negative); PH 5.5 (5.0-9.0); Specific Gravity - Urine 1.025 (1.005-1.025); UMIC TRIGGER UACC YES; Urine Blood Negative (Negative); Urine Ketones Negative (Negative); Urine Protein 30 (1+) mg/dL (Neg-Trace)
[2023-09-13 11:35] LABS: Bacteria Urine 4+ (None Seen); Other Crystals Urine Present; Squamous Epithelial Cell Urine >20 /HPF (0-2); UACC Culture Trigger YES
== END 2023-09-13 11:27 | disposition home or self-care (01) ==
PROVIDERS: Internal Medicine; Emergency Provider Emergency Medicine Emergency Medical Services; PCP Internal Medicine
DX: F32.A Depression, unspecified (principal); F10.220 Alcohol dependence with intoxication, uncomplicated; Y90.6 Blood alcohol level of 120-199 mg/100 ml; R10.13 Epigastric pain; I10 Essential (primary) hypertension; E78.00 Pure hypercholesterolemia, unspecified; I47.10 Supraventricular tachycardia, unspecified; Z79.899 Other long term (current) drug therapy
CPT/HCPCS: 36415; 80053; 80307; 81001; 83735; 85025; 85610; 87086; 96361; 96374; 96375; 99285; J2060; J2405; S9485

== ENCOUNTER 2023-11-30 14:59 | Outpatient (AMB) | payer OTHER, SELFPAY ==
[2023-11-30 15:00] VITALS: BP 120/66; PULSE 69; O2SAT 98; BMI 33.1
--- NOTE | 2023-11-30 15:00 | MHC.PC.OV ---
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 Required: No Allergies morphine Adverse Reaction (Unknown, Verified 12/12/23 05:09) withdrawals/sweats Medication List - Last Reconciled 12/12/23 by Vishal Brock MD albuterol sulfate 90 mcg/actuation (ProAir HFA) 2 puffs inhalation Q6H PRN 30 days cholecalciferol (vitamin D3) 25 mcg PO DAILY 90 days cyclobenzaprine 10 mg PO TID PRN 30 days dicyclomine 10 mg PO QID fluoxetine 20 mg PO DAILY fluticasone propion-salmeterol 45-21 mcg/actuation (Advair HFA) 2 puffs inhalation BID fluticasone propionate 50 mcg/actuation 2 sprays intranasal DAILY PRN 30 days lansoprazole 30 mg PO DAILY lorazepam 1 mg PO Q12H PRN 90 days magnesium oxide 500 mg PO BID 30 days meloxicam 15 mg PO DAILY PRN 90 days metoprolol succinate ER 50 mg PO DAILY 90 days metronidazole 500 mg PO BID PRN metronidazole 0.75%(37.5mg/5gram) 1 appful vaginal BID PRN peg 3350-electrolytes 236-22.74-6.74 -5.86 gram (Golytely) 240 mL PO Q10M 1 day phenazopyridine (Pyridium) 100 mg PO TID PRN 6 doses sucralfate (Carafate) 1 g PO BID Tobacco use date assessed: 11/30/23 HPI 6 month f/u HPI Details Patient comes in today for her follow up visit States that she's had a recurrent non-productive cough since she tested positive for COVID at the beginning of the year - she did a home test for COVID on the week of October 2023 and it came out positive States that her symptoms then were mostly mild so she did not call to request for Rx for Paxlovid Relates that all of her symptoms have since cleared up except for her recurrent coughing She denies any increased SOB; denies any chest pains Still has on and off headaches but denies any dizziness No nausea/vomiting, no abdominal pain No change in bowel habits noted Still has her usual aches and pains but states that they have been mostly manageable [facility] Medical History Potential exposure to STD Hot flashes Venous insufficiency of both lower extremities Pure hypercholesterolemia SVT (supraventricular tachycardia) Paresthesia of left upper extremity Cardiac arrhythmia Hx of esophageal ulcer Benign essential hypertension Low back pain Vitamin D deficiency Bipolar disorder Alcoholism Obesity (BMI 30-39.9) Anxiety Left shoulder pain Family history of breast cancer Bipolar 1 disorder Depression Surgical History History of breast augmentation Hx of nasal septoplasty History of incisional hernia repair Hx of colonoscopy Hx of section Hx of gastrostomy (~04/2002) Hx of endoscopy Family History Father Esophagus cancer, Onset Age: 63 Mother Breast cancer, Onset Age: 46 Maternal Grandfather Cancer Paternal Aunt Breast cancer Maternal Aunt Breast cancer Social History Household Members: None Housing: House Alcohol intake: current Alcohol intake frequency: 3 or more drinks per day Alcohol type: hard liquor Patient Tobacco Use Status: Former Tobacco user Years Smoked: rarely- occasional smoker e-Cigarette/Vaping Use: Never Used Second Hand Smoke Exposure: Yes service: No Current occupational status: employed Cognitive needs: No Hearing needs: No Vision needs: Yes Questionnaire PHQ-9 Over the last 2 weeks, how often have you been bothered by any of the following problems? 1. Little interest or pleasure in doing things: not at all 2. Feeling down, depressed, or hopeless: not at all 3. Trouble falling or staying asleep, or sleeping too much: not at all 4. Feeling tired or having little energy: not at all 5. Poor appetite or overeating: not at all 6. Feeling bad about yourself - or that you are a failure or have let yourself or your family down: not at all 7. Trouble concentrating on things, such as reading the newspaper or watching television: not at all 8. Moving or speaking so slowly that other people could have noticed. Or the opposite - being so fidgety or restless that you have been moving around a lot more than usual: not at all 9. Thoughts that you would be better off or of hurting yourself in some way: not at all Total score: 0 Depression Screening Interpretation: Negative (is on Rx) Depression Screening Done: Yes 35245 - PHQ-9 Billing: Yes Source: Developed by Drs. Jack Hyde, Bertha Washington, Lon Tijerina and colleagues, with an educational nayeli from [employer]. Thrive Questionnaire Date Thrive assessed: 11/30/23 I am a: Patient What is your living situation today?: I have a steady place to live Within the past 12 months, did the food you bought not last and you didn't have the money to get more?: Never true Within the past 12 months, did you worry whether your food would run out before you got money to buy more?: Never true Do you have trouble paying for medicines?: No Do you have trouble getting transportation to medical appointments?: No Do you have trouble paying your heating and electricity bill?: No Do you have trouble taking care of your child, family member or friend?: No Do you have trouble with day-to-day activities such as bathing, preparing meals, shopping, managing finances, etc.?: No Are you currently unemployed and looking for a job?: No Are you interested in more education?: No Please select the resources that you would like help with: None Currently or been in a relationship where the following occur: no concerns reported THRIVE Score: 0 AUDIT C Alcohol Use Questionnaire (AUDIT-C) 1. How often do you have a drink containing alcohol?: Monthly or less 2. How many drinks containing alcohol do you have on a typical day when you are drinking?: 1 or 2 3. How often do you have six or more drinks on one occasion?: Never Total Score: 1 Score Reviewed/Action Taken: Yes DARBY-7 AMB Questionnaire DARBY-7 Date DARBY - 7 assessed: 11/30/23 Source: Developed by Drs. Jack Hyde, Bertha Washington, Lon Tijerina and colleagues, with an educational nayeli from [employer] Review of Systems Const Denies chills, Denies difficulty sleeping, Denies fatigue, Denies fever(s), Reports headache(s) (on and off, mostly over the frontal and forehead areas) and Denies weight loss ENT Denies dysphagia, Denies dizziness, Denies otalgia, Reports headache(s) (on and off, mostly over the frontal and forehead areas), Reports neck pain (at times), Denies odynophagia and Denies sore throat Card Denies chest pain, Denies rapid heart rate, Denies irregular heart rhythm, Denies palpitations and Denies dyspnea Resp Denies chest congestion, Reports cough (recurrent, non-productive), Denies dyspnea and Denies wheezing GI Denies abdominal pain, Denies constipation, Denies dysphagia, Denies diarrhea, Denies nausea, Denies odynophagia and Denies vomiting Denies hematuria, Denies urinary frequency, Reports hot flashes (recurrent) and Denies dysuria Musc Reports back pain (on and off, over the thoracic spine), Reports arthralgias (over the left ankle and of the left big toe,on and off), Reports muscle cramps (on and off in both legs, worse at night and in AM), Reports neck pain (at times) and Reports numbness (occasionally, of the left arm) Skin/Breast Denies rash and Denies unusual bruising Neuro Denies dizziness, Reports headache(s) (on and off, mostly over the frontal and forehead areas), Reports numbness (occasionally, of the left arm) and Denies paresthesias Psych Reports anxiety and Denies depression Endo Denies fatigue and Denies palpitations Jomar/Lymph Denies easy bruising Aller/Immun Denies wheezing Physical exam (Primary Care) Vital Signs: Last Vital Signs Pulse 69 11/30/23 15:00 BP 120/66 11/30/23 15:00 Pulse Ox 98 11/30/23 15:00 Oxygen Delivery Method Room Air 11/30/23 15:00 BMI result Body Mass Index 33.1 Tobacco/Smoking Status: Tobacco use Status Tobacco use date assessed 11/30/23 11/30/23 15:02 Patient Tobacco Use Status Former Tobacco user 11/30/23 15:02 Tobacco use type 08/17/23 16:37 e-Cigarette/Vaping Use Never Used 11/30/23 15:02 Depression Screening Interpretation: Negative (is on Rx) Thrive Assessment: Date of Thrive Assessment Date Thrive assessed 11/30/23 11/30/23 15:02 Currently or been in a relationship where the following occur: no concerns reported Const General: no acute distress and alert HENMT Ears: TM's normal bilaterally and EAC's normal Throat: Yes posterior oropharynx normal and Yes tonsils normal (no TP congestion) Neck Neck: Yes no lymphadenopathy and Yes supple Thyroid: Thyroid normal Resp Auscultation: clear to auscultation bilaterally, no rales and no wheezes Cardio Rate: regular rate Rhythm: regular rhythm Heart sounds: no murmurs GI Palpation (GI): Soft to palpation and nontender Auscultation: normal bowel sounds General: Yes no CVA tenderness Back/Spine/Pelvis Back: no CVA tenderness Cervical Spine: Cervical spine tenderness (mild) Thoracic/Lumbar Spine: thoracic spinal tenderness (mild) Skin Rashes: no rashes Extrem General: Yes no clubbing, cyanosis or edema Left lower extremity: ankle Details: tenderness Location: anterolaterally and swelling (mild) Details: diffusely and foot Details: normal to inspection and no edema Assessment and Plan Assessment & Plan (1) Recurrent nonproductive cough: Code(s): R05.8 - Other specified cough Plan: Reports (+) recurrent cough since she tested positive for COVID in early October 2023; cough is mostly non-productive and she has no other respiratory symptoms and no other concerning issues at present Will send patient for chest x-rays for further evaluation (2) Benign essential hypertension: Code(s): I10 - Essential (primary) hypertension Plan: Reinforced low sodium diet Continue Metoprolol ER 50 mg QD (3) Cardiac arrhythmia: Code(s): I49.9 - Cardiac arrhythmia, unspecified Qualifiers: Arrhythmia type: unspecified cardiac arrhythmia Qualified Code(s): I49.9 - Cardiac arrhythmia, unspecified Plan: Most likely occasional SVTs - extended Holter monitor done last year revealed only occasional SVTs that did not correlate with patient's symptoms Her palpitations have reportedly not occurred in a while now Is on Metoprolol ER, which helps keep her symptoms in check; may increase dose if symptoms recur Follow-up with cardiology as scheduled (4) Pure hypercholesterolemia: Code(s): E78.00 - Pure hypercholesterolemia, unspecified Plan: Patient is reminded that her cholesterol level was still high when her fasting lipid profile was most recently checked back in July 2022 although they have improved from the year before Reinforced low cholesterol diet Have recommended that she start on Rx to help lower her cholesterol in the past but patient declined and would like to continue with diet modification at this time Will have her recheck her labs and fasting lipids in 6 months for follow up (5) Anemia: Code(s): D64.9 - Anemia, unspecified Qualifiers: Anemia type: iron deficiency Iron deficiency anemia type: unspecified iron deficiency Qualified Code(s): D50.9 - Iron deficiency anemia, unspecified Plan: Due to iron deficiency as her iron level was low when last checked Patient could not tolerate oral iron supplements in the past She was referred hematology for consideration for IV iron infusion - was seen by hematology back in December 2022 and has received Venofer infusion 200 mg weekly x 5 doses Her anemia has improved/corrected since, with her most recent CBC done on 03/22/23 showing a normal H/H at 14.2/43.7 Follow up with hematology as scheduled (6) GERD (gastroesophageal reflux disease): Code(s): K21.9 - Gastro-esophageal reflux disease without esophagitis Qualifiers: Esophagitis presence: without esophagitis Qualified Code(s): K21.9 - Gastro-esophageal reflux disease without esophagitis Plan: Dietary restrictions reinforced Continue Lansoprazole 30 mg QD and Sucralfate 1 gm BID Follow up with GI as scheduled (7) IBS (irritable bowel syndrome): Code(s): K58.9 - Irritable bowel syndrome without diarrhea Qualifiers: Irritable bowel syndrome type: unspecified Qualified Code(s): K58.9 - Irritable bowel syndrome without diarrhea Plan: Continue Dicyclomine 10 mg QID PRN; also takes Compazine 5 mg TID PRN Follow up with GI as scheduled (8) Left ankle pain: Comment: S/P fall 2 days ago on 03/11/23 Code(s): M25.572 - Pain in left ankle and joints of left foot Qualifiers: Chronicity: acute Qualified Code(s): M25.572 - Pain in left ankle and joints of left foot Plan: X-rays of the left ankle done back in March 2023 revealed (+) posterior and plantar calcaneal spurs with no acute fractures or lesions MRI of the ankle done in June 2023 revealed (+) Grade 2 sprain/partial tear of the dorsal talonavicular ligament Follow up with podiatry as scheduled (9) Thoracic spondylosis: Comment: 2013 thoracic spine xray shows spondylosis and multilevel osteophytes so consider repeat study and possible MRI of spine for her continued pain not r/t eating or bowel movement. Code(s): M47.814 - Spondylosis without myelopathy or radiculopathy, thoracic region Plan: Reinforced activity and weight-lifting restrictions Continue Cyclobenzaprine 10 mg TID PRN and Meloxicam 15 mg QD with food PRN (10) Paresthesia of left upper extremity: Code(s): R20.2 - Paresthesia of skin Plan: States that her left arm symptoms have been stable lately and are much milder in severity Cervical spine x-rays done a few months ago revealed only mild cervical spondylolysis; x-rays of the left shoulder came back normal WIll consider referring to physical therapy if symptoms persist or get worse (11) Vitamin D deficiency: Code(s): E55.9 - Vitamin D deficiency, unspecified Plan: Continue Vitamin D3 1000 units QD (12) Venous insufficiency of both lower extremities: Code(s): I87.2 - Venous insufficiency (chronic) (peripheral) Plan: S/P laser venous ablation of both legs with Dr. Noreen Leon (right leg in late November 2022 and left leg in January 2023) Follow up with vascular surgery as scheduled (13) Bilateral leg cramps: Code(s): R25.2 - Cramp and spasm Plan: Continue Magnesium tablets 500 mg BID Will need to consider work up and Tx for RLS if symptoms persist (14) Alcoholism: Code(s): F10.20 - Alcohol dependence, uncomplicated Plan: Counseled again on staying sober Continue Chlordiazepoxide 25 mg 2 tabs every 6 to 8 hours PRN and Naltrexone 50 mg QD; continue Magnesium Oxide 500 mg BID - states that the magnesium tablets helps with her leg cramps as well (15) Anxiety: Code(s): F41.9 - Anxiety disorder, unspecified Plan: Continue Lorazepam 1 mg 1/2 to 1 tablet BID PRN (16) Bipolar disorder: Code(s): F31.9 - Bipolar disorder, unspecified Qualifiers: Active/Remission status: currently active Current bipolar episode type: depressed Current episode severity: unspecified Qualified Code(s): F31.30 - Bipolar disorder, current episode depressed, mild or moderate severity, unspecified Plan: Continue Fluoxetine 20 mg QD Follow up with psychiatry as scheduled (17) Obesity (BMI 30-39.9): Code(s): E66.9 - Obesity, unspecified Plan: Reinforced diet/exercise as tolerated/lose weight Plan To return in 6 months for her next annual physical examination Orders: Orders Complete Blood Count Auto Diff 6 Months D64.9 - Anemia, unspecified, Z00.00 - Encounter for general adult medical examination without abnormal findings Lipid Panel 6 Months E78.00 - Pure hypercholesterolemia, unspecified, Z00.00 - Encounter for general adult medical examination without abnormal findings TSH reflex Free T4 6 Months E78.00 - Pure hypercholesterolemia, unspecified, Z00.00 - Encounter for general adult medical examination without abnormal findings UA CC w/rflx Micro + Cult 6 Months R30.0 - Dysuria, Z00.00 - Encounter for general adult medical examination without abnormal findings Vitamin D 25-OH Total 6 Months E55.9 - Vitamin D deficiency, unspecified, Z00.00 - Encounter for general adult medical examination without abnormal findings XR chest 2V /24 R05.9 - Cough, unspecified Comprehensive [place]. Panel Fast 6 Months E78.00 - Pure hypercholesterolemia, unspecified, Z00.00 - Encounter for general adult medical examination without abnormal findings Coding Level of Care Code Est Pt Level 4 (98255) Diagnoses Recurrent nonproductive cough R05.8 Benign essential hypertension I10 Cardiac arrhythmia, unspecified cardiac arrhythmia type I49.9 Arrhythmia type: unspecified cardiac arrhythmia Pure hypercholesterolemia E78.00 Iron deficiency anemia, unspecified iron deficiency anemia type D50.9 Anemia type: iron deficiency Iron deficiency anemia type: unspecified iron deficiency Gastroesophageal reflux disease without esophagitis K21.9 Esophagitis presence: without esophagitis Irritable bowel syndrome, unspecified type K58.9 Irritable bowel syndrome type: unspecified Acute left ankle pain M25.572 Chronicity: acute Thoracic spondylosis M47.814 Paresthesia of left upper extremity R20.2 Vitamin D deficiency E55.9 Venous insufficiency of both lower extremities I87.2 Bilateral leg cramps R25.2 Alcoholism F10.20 Anxiety F41.9 Bipolar affective disorder, current episode depressed, current episode severity unspecified F31.30 Active/Remission status: currently active Current bipolar episode type: depressed Current episode severity: unspecified Obesity (BMI 30-39.9) E66.9
== END 2023-11-30 16:42 | disposition home or self-care (01) ==
PROVIDERS: PCP Internal Medicine; Visit Provider Internal Medicine
DX: R05.8 Other specified cough (principal); F31.30 Bipolar disorder, current episode depressed, mild or moderate severity, unspecified; F10.20 Alcohol dependence, uncomplicated; I10 Essential (primary) hypertension; I49.9 Cardiac arrhythmia, unspecified; E78.00 Pure hypercholesterolemia, unspecified; D50.9 Iron deficiency anemia, unspecified; K21.9 Gastro-esophageal reflux disease without esophagitis; K58.9 Irritable bowel syndrome, unspecified; M25.572 Pain in left ankle and joints of left foot; M47.814 Spondylosis without myelopathy or radiculopathy, thoracic region; R20.2 Paresthesia of skin
CPT/HCPCS: 99214

== ENCOUNTER 2023-12-01 15:12 | Outpatient (REF) | payer OTHER, SELFPAY ==
--- NOTE | ~2023-12-01 | XR_ITS ---
EXAMINATION: XR CHEST CLINICAL INFORMATION: Cough unspecified. COMPARISON: 11/24/2022 TECHNIQUE: 3 views of the chest were obtained. FINDINGS: There is no gross pneumothorax. Lung volumes are low. Heart size is normal. Degenerative changes in the thoracic spine. No pleural effusion. No focal consolidation to suggest pneumonia. XR/XR chest 2V IMPRESSION: No evidence of pneumonia.
== END 2023-12-01 15:13 | disposition home or self-care (01) ==
LOC: HO.XRAY 15:12
PROVIDERS: PCP Internal Medicine; Visit Provider Internal Medicine
DX: R05.9 Cough, unspecified (principal)
CPT/HCPCS: 71046

== ENCOUNTER 2024-01-19 15:10 | Outpatient (REF) | payer OTHER, SELFPAY ==
--- NOTE | ~2024-01-19 | MM_ITS ---
EXAMINATION: MM SCREENING DIGITAL BREAST TOMOSYNTHESIS, BILATERAL WITH BREAST IMPLANTS CLINICAL INFORMATION: Screening. Asymptomatic. COMPARISON: Mammography: This study is compared with prior mammograms dating back to 2019. TECHNIQUE: Digital mammography is performed in craniocaudal and mediolateral oblique views along with computer-aided detection (CAD). Digital breast tomosynthesis is performed in implant-displaced craniocaudal and implant-displaced mediolateral oblique views along with computer-aided detection (CAD). Synthesized 2D images are generated from the tomosynthesis. FINDINGS: There are scattered areas of fibroglandular density (ACR BI-RADS breast composition Category b). There are bilateral, retropectoral, mammographically intact saline breast implants. There are no significant masses, abnormal calcifications, or other abnormalities. MM/MM tomosynthesis screen imp BI IMPRESSION: There are no significant changes from prior study. ASSESSMENT: BI-RADS BI-RADS 1 - Negative RECOMMENDATION: Routine annual mammography screening. 1 year F/U This patient's information was entered into a reminder system with a target due date for their next mammogram.
== END 2024-01-19 15:11 | disposition home or self-care (01) ==
LOC: HO.MAMMO 15:10
PROVIDERS: PCP Internal Medicine; Visit Provider Internal Medicine
DX: Z12.31 Encounter for screening mammogram for malignant neoplasm of breast (principal)
CPT/HCPCS: 77063; 77067; J2704; J3010

== ENCOUNTER → 2024-01-19 15:15 | Outpatient (BNV) | payer OTHER, SELFPAY | PROVIDERS: PCP Internal Medicine; Visit Provider Radiology Diagnostic Radiology | DX: Z12.31 Encounter for screening mammogram for malignant neoplasm of breast (principal) | CPT/HCPCS: 77063; 77067 ==

== ENCOUNTER 2024-03-01 08:36 | Emergency (ER) | payer OTHER, SELFPAY ==
--- NOTE | 2024-03-01 08:37 | ECG_ITS ---
Test Reason : rapid hr Blood Pressure : / mmHG Vent. Rate : 125 BPM Atrial Rate : 125 BPM P-R Int : 134 ms QRS Dur : 066 ms QT Int : 306 ms P-R-T Axes : 056 020 051 degrees QTc Int : 441 ms Sinus tachycardia Low voltage QRS Nonspecific ST and T wave abnormality Abnormal ECG When compared with ECG of 25-JAN-2023 06:27, No significant change was found Referred By: Generic ED Physician Electronically Signed By:DAVID LEZAMA
[2024-03-01 08:38] VITALS: BP 129/81; PULSE 141; RESP 20; TEMP 36.2; O2SAT 99; BMI 31.7
--- NOTE | 2024-03-01 08:54 | ED_ITS ---
HPI - Arrhythmia/Palpitations General Chief Complaint: Arrhythmia/Palpitations Stated Complaint: rapid heart beat Time Seen by Provider: 03/01/24 08:47 Source: patient and old records reviewed Mode of arrival: ambulatory Limitations: no limitations History of Present Illness ED Provider: SUMAYA BEGUM narrative: 53 yo female with PMH of anemia, GERD, IBS, alcohol abuse, GIST, SVT, HLD, HTN, bipolar disorder, depression here with c/o drinking with friends this weekend then afterwards for the past 2 days having n/v and not able to eat or drink much and having her HR go up and down. She just doesn't feel great and cannot keep much down. Feels weak and dizzy. complaint: rapid heart beat and palpitations Onset (ago): day(s) (2) Duration: intermittent Severity: moderate Context: occurred during rest and occurred during exertion Arrhythmia history: SVT Associated symptoms: nausea, vomiting, anxiety and muscle cramps Related Data Home Medications ?Medication ?Instructions ?Recorded ?Confirmed metronidazole 0.75 % (37.5 mg/5 1 appful vaginal BID PRN yeast 08/17/23 01/12/24 gram) vaginal gel infection metronidazole 500 mg tablet 500 mg PO BID PRN yeast infection 08/17/23 01/12/24 Previous Rx's ?Medication ?Instructions ?Recorded albuterol sulfate 90 mcg/actuation 2 puff inhalation Q6H PRN 11/04/20 aerosol inhaler (ProAir HFA) shortness of breath or wheezing 30 days #8.5 grams fluticasone propionate 50 2 spray intranasal DAILY PRN 05/28/22 mcg/actuation nasal allergy symptoms 30 days #16 grams spray,suspension fluticasone propionate 45 2 puff inhalation BID #8 grams 11/25/22 mcg-salmeterol 21 mcg/actuation HFA inhaler (Advair HFA) meloxicam 15 mg tablet 15 mg PO DAILY PRN pain 90 days 03/09/23 #90 tabs phenazopyridine 100 mg tablet 100 mg PO TID PRN pain 6 doses #6 05/18/23 (Pyridium) tabs magnesium oxide 500 mg PO BID 30 days #60 tabs 05/30/23 dicyclomine 10 mg capsule 10 mg PO QID #120 caps 08/17/23 peg 3350-electrolytes 236 240 ml PO Q10M 1 day #4,000 mL 11/15/23 gram-22.74 gram-6.74 gram-5.86 gram solution (Golytely) sucralfate 1 gram tablet (Carafate) 1 g PO BID #60 tabs 08/17/23 metoprolol succinate 50 mg 50 mg PO DAILY 90 days #90 tabs 09/21/23 tablet,extended release 24 hr cyclobenzaprine 10 mg tablet 10 mg PO TID PRN muscle spasm 30 10/10/23 days #90 caps fluoxetine 20 mg capsule 20 mg PO DAILY #90 caps 11/21/23 cholecalciferol (vitamin D3) 25 25 mcg PO DAILY 90 days #90 tabs 12/06/23 mcg (1,000 unit) tablet lansoprazole 30 mg capsule,delayed 30 mg PO DAILY #30 caps 01/05/24 release lorazepam 1 mg tablet 1 mg PO Q12H PRN anxiety 90 days 02/06/24 #180 tabs ondansetron 4 mg disintegrating 4 mg PO Q8H PRN nausea and 03/01/24 tablet vomiting #20 tabs Allergies Allergy/AdvReac Type Severity Reaction Status Date / Time morphine AdvReac Unknown withdrawals Verified 03/01/24 08:40 /sweats Review of Systems 2 Review of Systems: Constitutional : No Weight loss, No Fever, No Chills ENT/Mouth : No sore throat, No Rhinorrhea Eyes: No Swelling, No Redness Cardiovascular : No Chest Pain, No SOB, NoEdema Respiratory : No Cough, No Sputum, No Wheezing Gastrointestinal : Positive Nausea, Positive Vomiting, no Diarrhea, no abdominal Pain, No Hematochezia, No Melena Genitourinary : No Dysuria, No Urinary Frequency, No Hematuria, No Urgency Musculoskeletal : No joint pain, No Myalgias, No Joint Swelling Skin : No Skin Lesions, No rash Neuro : pos Weakness, No Numbness, pos Dizziness, No Headache Psych : No Anxiety/Panic, No Depression All other systems reviewed and are negative. [facility] Past Medical History Attestation statement: The following information was validated with the patient. Source: old records reviewed Medical History Potential exposure to STD Hot flashes Venous insufficiency of both lower extremities Pure hypercholesterolemia SVT (supraventricular tachycardia) Paresthesia of left upper extremity Cardiac arrhythmia Hx of esophageal ulcer Benign essential hypertension Low back pain Vitamin D deficiency Bipolar disorder Alcoholism Obesity (BMI 30-39.9) Anxiety Left shoulder pain Family history of breast cancer Bipolar 1 disorder Depression Surgical History History of breast augmentation Hx of nasal septoplasty History of incisional hernia repair Hx of colonoscopy Hx of section Hx of gastrostomy (~04/2002) Hx of endoscopy Family History Family History Father Esophagus cancer, Onset Age: 63 Mother Breast cancer, Onset Age: 46 Maternal Grandfather Cancer Paternal Aunt Breast cancer Maternal Aunt Breast cancer Social History Social History Household Members: None Housing: House Alcohol intake: current Alcohol intake frequency: 3 or more drinks per day Alcohol type: hard liquor Patient Tobacco Use Status: Former Tobacco user Years Smoked: rarely- occasional smoker e-Cigarette/Vaping Use: Never Used Second Hand Smoke Exposure: Yes Advance Directives: No Advance Directives Information Provided: Yes service: No Current occupational status: employed Cognitive needs: No Hearing needs: No Vision needs: Yes Physical Exam 2 Vital Signs: Vital Signs: Last Vital Signs Temp 98.3 F 03/01/24 11:08 Pulse 97 03/01/24 11:08 Resp 18 03/01/24 11:08 BP 112/67 03/01/24 11:08 Pulse Ox 98 03/01/24 11:08 O2 Del Method Room Air 03/01/24 11:08 BMI result Body Mass Index 31.7 Appearance: Alert. Oriented X3. No acute distress. Eyes: Pupils equal, round and reactive to light. ENT: Pharynx mild dry MM Neck: Normal inspection. Neck supple. CVS: tachcyardic heart rate and rhythm. Pulses normal. Respiratory: No respiratory distress. Breath sounds normal. Abdomen: Soft and nontender. Skin: Skin warm and dry. Normal skin color. Normal skin turgor. Extremities: No lower extremity edema. No calf ttp Neuro: Oriented X 3. No motor deficit. No sensory deficit. Medications Administered Discontinued Medications Generic Name Dose Route Start Last Admin Trade Name Freq PRN Reason Stop Dose Admin Diazepam 5 mg 03/01/24 08:47 03/01/24 09:13 Diazepam 10 Mg/2 Ml Cartridge IVPUSH 03/01/24 08:48 5 mg STAT STA Administration Magnesium Sulfate 2 gm in 50 mls @ 25 mls/hr 03/01/24 08:47 03/01/24 09:14 Magnesium Sulfate/H2o IV 03/01/24 10:46 25 mls/hr ONCE ONE Administration Thiamine HCl 200 mg/ Sodium 102 mls @ 204 mls/hr 03/01/24 08:47 03/01/24 09:48 Chloride IV 03/01/24 09:16 204 mls/hr ONCE ONE Administration Sodium Chloride 1,000 mls @ 999 mls/hr 03/01/24 08:47 03/01/24 09:04 Ns IV 03/01/24 09:47 999 mls/hr .Q1H1M ONE Administration Ondansetron HCl 4 mg 03/01/24 08:47 03/01/24 09:12 Ondansetron Hcl 4 Mg/2 Ml Vial IVPUSH 03/01/24 08:48 4 mg ONCE ONE Administration Medical Decision Making Medical Decision Making MDM Narrative: 53 yo female with PMH of anemia, GERD, IBS, alcohol abuse, GIST, SVT, HLD, HTN, bipolar disorder, depression here with c/o palpitations, n/v feeling weak and poor PO intake after drinking this weekend likely lyte abnormality, ETOH gastritis, dehydration - no signs of active withdrawal on exam will obtain labs, hydrate, IV valium, zofran, thiamine and IV magnesium ordered. Differential Diagnosis Differential Diagnoses: The differential diagnosis associated with the presentation includes dehydration, ETOH abuse, gastritis, lyte abnormality Admission/Observation Consideration of admission/observation: Escalation of care including admission/observation considered negative workup at this time feels better stable for DC Lab Data [facility] Lab Attestation statement: I reviewed the patient's lab results. 03/01/24 08:58 03/01/24 08:58 Labs: Lab Results 03/01/24 Range/Units 08:58 WBC 8.3 (4.8-10.8) X10*3/uL RBC 4.81 (4.20-5.50) X10*6/uL Hgb 14.5 (12.0-16.0) g/dl Hct 42.1 (37.0-47.0) % MCV 87.5 (80.0-98.0) fL MCH 30.1 (27.0-33.0) pg MCHC 34.4 (31.0-35.0) g/dl RDW 12.4 (11.0-16.0) % Plt Count 327 (160-400) X10*3/uL MPV 9.1 L (9.4-12.3) fL Immature Gran % (Auto) 0.2 (0.0-0.4) % Neut % (Auto) 61.6 (45-73) % Lymph % (Auto) 29.4 (20-40) % [place] % (Auto) 6.0 (2-11) % Eos % (Auto) 1.7 (0-4) % Baso % (Auto) 1.1 (0-2) % Lymph # (Auto) 2.5 (1.2-4.9) X10*3/uL [place] # (Auto) 0.5 (0.1-1.2) X10*3/uL Eos # (Auto) 0.1 (0.0-0.4) X10*3/uL Baso # (Auto) 0.1 (0.0-0.2) X10*3/uL Abs Immat Gran (auto) 0.02 (0.00-0.03) X10*3/uL Absolute Neuts (auto) 5.1 (2.0-8.3) x10*3/uL Absolute Nucleated RBC 0.000 (0.0-0.012) X10*3/uL Nucleated RBC % (auto) 0.0 (0.0-0.2) /100WBC Sodium 137 (135-145) mmol/L Potassium 3.8 (3.3-5.1) mmol/L Chloride 102 (96-108) mmol/L Carbon Dioxide 22 (22-29) mmol/L Anion Gap 17 (12-20) BUN 7 L (9-16) mg/dL Creatinine 0.76 (0.5-1.4) mg/dL Estim Creat Clear Calc 96.1 Estimated GFR > 60 Random Glucose 139 H (60-115) mg/dL Calcium 8.9 (8.4-10.2) mg/dL Magnesium 1.6 (1.6-2.6) mg/dL Total Bilirubin 0.7 (0.0-1.0) mg/dL Direct Bilirubin 0.2 (0.0-0.5) mg/dL AST 20 (5-31) U/L ALT 14 (0-31) U/L Alkaline Phosphatase 79 (39-117) U/L Troponin I High Sens < 2.7 (<3.5-17.0) ng/L Total Protein 6.9 (6.5-8.0) g/dL Albumin 4.0 (3.5-5.0) g/dL Lipase 10 (8-78) U/L Ethyl Alcohol < 10 mg/dL Independent Interpretation I performed an independent interpretation of an: EKG Interpretation: Rate: 125 Rhythm: sinus tachycardia [place]: normal Normal P waves. Normal CODEY. Normal QRS complex. ST T wave : normal no acute ischemia qTC: 441 prior studies: no acute ischemia The study has been interpreted contemporaneously by me. . External Record Review External record reviewed: Inpatient record Prescription Management I considered prescription management with: Other Critical Care Time Critical Care Time Critical Care Time: Yes Total Critical Care Time: 35 Attestation: IV magnesium, IV valium for symptom control with good improvement, review of records I attest to this time spent taking care of the patient Discharge Plan Discharge Clinical Impression: Heart palpitations Acute alcoholic gastritis Qualifiers: Gastritis bleeding: without bleeding Qualified Code(s): K29.20 - Alcoholic gastritis without bleeding Patient Disposition: Home, Self-Care Instructions: Heart Palpitations (ED), Gastritis (ED) Additional Instructions: return for worsening symptoms or concerns bland diet and stay hydrated labs reassuring and EKG reassuring avoid alcohol Prescriptions: New ondansetron 4 mg tablet,disintegrating 4 mg PO Q8H PRN (Reason: nausea and vomiting) Qty: 20 0RF No Action albuterol sulfate [ProAir HFA] 90 mcg/actuation HFA aerosol inhaler 2 puff inhalation Q6H PRN (Reason: shortness of breath or wheezing) 30 Days Qty: 8.5 1RF Advair HFA 45-21 mcg/actuation HFA aerosol inhaler 2 puff inhalation BID Qty: 8 0RF meloxicam 15 mg tablet 15 mg PO DAILY PRN (Reason: pain) 90 Days Qty: 90 1RF Rx Instructions: Take with food phenazopyridine [Pyridium] 100 mg tablet 100 mg PO TID PRN (Reason: pain) Qty: 6 0RF metoprolol succinate 50 mg tablet extended release 24 hr 50 mg PO DAILY 90 Days Qty: 90 3RF cyclobenzaprine 10 mg tablet 10 mg PO TID PRN (Reason: muscle spasm) 30 Days Qty: 90 0RF fluoxetine 20 mg capsule 20 mg PO DAILY Qty: 90 1RF cholecalciferol (vitamin D3) 25 mcg (1,000 unit) tablet 25 mcg PO DAILY 90 Days Qty: 90 12RF lansoprazole 30 mg capsule,delayed release(DR/EC) 30 mg PO DAILY Qty: 30 6RF lorazepam 1 mg tablet 1 mg PO Q12H PRN (Reason: anxiety) 90 Days Qty: 180 0RF fluticasone propionate 50 mcg/actuation spray,suspension 2 spray intranasal DAILY PRN (Reason: allergy symptoms) 30 Days Qty: 16 5RF Rx Instructions: administer into each nostril magnesium oxide 500 mg tablet 500 mg PO BID 30 Days Qty: 60 5RF metronidazole 500 mg tablet 500 mg PO BID PRN (Reason: yeast infection) Rx Instructions: Take with food, Avoid alcohol and vinegar products metronidazole 0.75 % (37.5mg/5 gram) gel 1 appful vaginal BID PRN (Reason: yeast infection) Rx Instructions: for use prn sucralfate [Carafate] 1 gram tablet 1 g PO BID Qty: 60 6RF dicyclomine 10 mg capsule 10 mg PO QID Qty: 120 6RF peg 3350-electrolytes [Golytely] 236-22.74-6.74 -5.86 gram recon soln 240 ml PO Q10M 1 Days Qty: 4000 0RF Rx Instructions: until fecal effluent is clear; do not exceed a total volume of 2,000 mL Stand Alone Forms: Work/School Release Interventions: ED Discharge Assessment Last Done: 03/01/24 11:08 Discharge Date/Time: 03/01/24 11:17 Print Language: Japanese
[2024-03-01 09:04] LABS: MANUAL DIFF FLAG NO
[2024-03-01] MEDS: 0.9 % Sodium Chloride 1,000 ML 999 ML IV (09:04)
[2024-03-01 09:05] VITALS: BP 123/81; PULSE 94; RESP 14; O2SAT 100
[2024-03-01 09:05] LABS: Basophils Absolute Auto 0.1 X10*3/uL (0.0-0.2); Basophils Percent Auto 1.1 % (0-2); Eosinophils Absolute Auto 0.1 X10*3/uL (0.0-0.4); Eosinophils Percent Auto 1.7 % (0-4); Hematocrit 42.1 % (37.0-47.0); Hemoglobin 14.5 g/dl (12.0-16.0); Imm Gran Abs Auto 0.02 X10*3/uL (0.00-0.03); Imm Gran Pct Auto 0.2 % (0.0-0.4); Lymphocytes Absolute Auto 2.5 X10*3/uL (1.2-4.9); Lymphocytes Percent Auto 29.4 % (20-40); Mean Corpuscular HGB Conc 34.4 g/dl (31.0-35.0); Mean Corpuscular Hemoglobin 30.1 pg (27.0-33.0); Mean Corpuscular Volume 87.5 fL (80.0-98.0); Mean Platelet Volume 9.1 fL (9.4-12.3); Monocytes Absolute Auto 0.5 X10*3/uL (0.1-1.2); Neutrophils Absolute Auto 5.1 x10*3/uL (2.0-8.3); Neutrophils Percent Auto 61.6 % (45-73); Platelet Count 327 X10*3/uL (160-400); Red Blood Count 4.81 X10*6/uL (4.20-5.50); Red Cell Distribution Width 12.4 % (11.0-16.0); White Blood Count 8.3 X10*3/uL (4.8-10.8)
[2024-03-01] MEDS: ondansetron HCL 4 MG/2 ML VIAL IVPUSH (09:12)
[2024-03-01] MEDS: diazePAM 10 MG/2 ML CARTRIDGE 5 MG IVPUSH (09:13)
[2024-03-01] MEDS: Magnesium Sulfate/H2O 2 GM/50 ML PIGGYBACK IV (09:14)
[2024-03-01 09:22] LABS: Alanine Aminotransferase 14 U/L (0-31); Alkaline Phosphatase 79 U/L (39-117); Anion Gap 17 (12-20); Aspartate Amino Transferase 20 U/L (5-31); Bilirubin Direct 0.2 mg/dL (0.0-0.5); Bilirubin Total 0.7 mg/dL (0.0-1.0); Blood Urea Nitrogen 7 mg/dL (9-16); Calcium 8.9 mg/dL (8.4-10.2); Carbon Dioxide 22 mmol/L (22-29); Chloride 102 mmol/L (96-108); Creatinine Clr Calc Pharmacy 96.1; Estimated Glomerular Filt Rate > 60; Ethanol < 10 mg/dL; Glucose Random 139 mg/dL (60-115); Lipase 10 U/L (8-78); Magnesium 1.6 mg/dL (1.6-2.6); Potassium 3.8 mmol/L (3.3-5.1); Sodium 137 mmol/L (135-145); Total Protein 6.9 g/dL (6.5-8.0)
[2024-03-01 09:28] LABS: Troponin-I High Sensitivity < 2.7 ng/L (<3.5-17.0)
[2024-03-01] MEDS: Thiamine HCL 200 MG in 0.9 % Sodium Chloride 100 ML 204 MG IV (09:48)
[2024-03-01 11:08] VITALS: BP 112/67; PULSE 97; RESP 18; TEMP 36.8; O2SAT 98
== END 2024-03-01 11:17 | disposition home or self-care (01) ==
PROVIDERS: Emergency Provider Emergency Medicine; PCP Internal Medicine
DX: R00.2 Palpitations (principal); K29.20 Alcoholic gastritis without bleeding; F10.10 Alcohol abuse, uncomplicated; Y90.0 Blood alcohol level of less than 20 mg/100 ml; I10 Essential (primary) hypertension
CPT/HCPCS: 36415; 80048; 80076; 80307; 83690; 83735; 84484; 85025; 93005; 96374; 96375; 99284; J2405; J3360; J3411; J3475

== ENCOUNTER → 2024-03-01 08:37 | Outpatient (BNV) | payer OTHER, SELFPAY | PROVIDERS: Emergency Provider Emergency Medicine; PCP Internal Medicine; Visit Provider Internal Medicine | DX: R00.0 Tachycardia, unspecified (principal); R94.31 Abnormal electrocardiogram [ECG] [EKG] | CPT/HCPCS: 93010 ==

== ENCOUNTER 2024-03-12 07:08 | Day surgery (SDC) | payer OTHER, SELFPAY ==
--- NOTE | 2024-03-09 10:11 | HO.ANESPROP2 ---
Documented by User: Erin Huntely NP 03/09/24 10:13 HPI - Anesthesia Eval Consult details Narrative: 53yo F for Upper Endoscopy and Colon[place] [facility] [facility] [place] with acute ETOH gastritis PMFSH Active Problems Active Problems: All Active Problems Recurrent nonproductive cough (Acute) Pre-op examination (Acute) Tubular adenoma of colon (Acute) Bilateral leg cramps (Acute) Problematic vaginal discharge (Acute) Pain of left great toe (Acute) Status post fall (Acute) Left ankle pain (Acute) Wheezing (Acute) Cough (Acute) Anemia (Chronic) Sinus pressure (Acute) Mild anemia (Acute) Right knee pain (Acute) Umbilical pain (Acute) Annual physical exam (Acute) Calf pain (Acute) Chest pain (Acute) Elbow injury (Acute) GERD (gastroesophageal reflux disease) (Acute) At high risk for breast cancer (Acute) IBS (irritable bowel syndrome) (Acute) Abdominal bloating (Acute) Epigastric pain (Acute) History of gastrointestinal stromal tumor (GIST) (Acute) Thoracic spondylosis (Acute) Potential exposure to STD (Acute) Hot flashes (Acute) SVT (supraventricular tachycardia) (Acute) Venous insufficiency of both lower extremities (Acute) Pure hypercholesterolemia (Acute) Paresthesia of left upper extremity (Acute) Cardiac arrhythmia (Acute) Benign essential hypertension (Acute) Low back pain (Acute) Vitamin D deficiency (Acute) Bipolar disorder (Acute) Alcoholism (Acute) Obesity (BMI 30-39.9) (Acute) Anxiety (Acute) Left shoulder pain (Acute) Family history of breast cancer (Acute) Depression (Acute) Past Medical History Medical History Potential exposure to STD Hot flashes Venous insufficiency of both lower extremities Pure hypercholesterolemia SVT (supraventricular tachycardia) Paresthesia of left upper extremity Cardiac arrhythmia Hx of esophageal ulcer Benign essential hypertension Low back pain Vitamin D deficiency Bipolar disorder Alcoholism Obesity (BMI 30-39.9) Anxiety Left shoulder pain Family history of breast cancer Bipolar 1 disorder Depression Family History Family History Father Esophagus cancer, Onset Age: 63 Mother Breast cancer, Onset Age: 46 Maternal Grandfather Cancer Paternal Aunt Breast cancer Maternal Aunt Breast cancer Surgical History Surgical History History of breast augmentation Hx of nasal septoplasty History of incisional hernia repair Hx of colonoscopy Hx of section Hx of gastrostomy (~04/2002) Hx of endoscopy Social History Social History Household Members: None Housing: House Alcohol intake: current Alcohol intake frequency: 3 or more drinks per day Alcohol type: hard liquor Patient Tobacco Use Status: Current everyday Tobacco user Cigarettes Per Day: 5 Years Smoked: rarely- occasional smoker e-Cigarette/Vaping Use: Never Used Second Hand Smoke Exposure: Yes Use of substances other than those prescribed or required for medical reasons: No Are you DNR?: No Advance Directives: No Advance Directives Information Provided: Yes service: No Current occupational status: employed Cognitive needs: No Hearing needs: No Vision needs: Yes Meds Allergies Allergy/AdvReac Type Severity Reaction Status Date / Time morphine AdvReac Unknown withdrawals Verified 03/01/24 08:40 /sweats Home Medications ?Medication ?Instructions ?Recorded ?Confirmed ?Last Taken ?Type metronidazole 0.75 % (37.5 mg/5 1 appful vaginal BID PRN yeast 08/17/23 01/12/24 Unknown History gram) vaginal gel infection metronidazole 500 mg tablet 500 mg PO BID PRN yeast infection 08/17/23 01/12/24 Unknown History Exam Pertinent Lab Results Pertinent Lab Results: Laboratory Tests 03/01/24 08:58 WBC 8.3 Hgb 14.5 Hct 42.1 Plt Count 327 Sodium 137 Potassium 3.8 Chloride 102 Carbon Dioxide 22 BUN 7 L Creatinine 0.76 Narrative Narrative: EKG 02/2024 (ED for acute ETOH gastritis) Vent. Rate : 125 BPM Atrial Rate : 125 BPM P-R Int : 134 ms QRS Dur : 066 ms QT Int : 306 ms P-R-T Axes : 056 020 051 degrees QTc Int : 441 ms Sinus tachycardia Low voltage QRS Nonspecific ST and T wave abnormality Abnormal ECG When compared with ECG of 25-JAN-2023 06:27, No significant change was found Assessment and Plan Assessment Anesthesia Assessment: Chart Reviewed Documented by User: Sirisha Marin MD 03/12/24 08:41 PMFSH Past Medical History Medical History Potential exposure to STD Hot flashes Venous insufficiency of both lower extremities Pure hypercholesterolemia SVT (supraventricular tachycardia) Paresthesia of left upper extremity Cardiac arrhythmia Hx of esophageal ulcer Benign essential hypertension Low back pain Vitamin D deficiency Bipolar disorder Alcoholism Obesity (BMI 30-39.9) Anxiety Left shoulder pain Family history of breast cancer Bipolar 1 disorder Depression Family History Family History Father Esophagus cancer, Onset Age: 63 Mother Breast cancer, Onset Age: 46 Maternal Grandfather Cancer Paternal Aunt Breast cancer Maternal Aunt Breast cancer Family history of problems with anesthesia: No Surgical History Surgical History History of breast augmentation Hx of nasal septoplasty History of incisional hernia repair Hx of colonoscopy Hx of section Hx of gastrostomy (~04/2002) Hx of endoscopy History of Problems with Anesthesia: No Social History Social History Household Members: None Housing: House Alcohol intake: current Alcohol intake frequency: 3 or more drinks per day Alcohol type: hard liquor Patient Tobacco Use Status: Current everyday Tobacco user Cigarettes Per Day: 5 Years Smoked: rarely- occasional smoker e-Cigarette/Vaping Use: Never Used Second Hand Smoke Exposure: Yes Use of substances other than those prescribed or required for medical reasons: No Are you DNR?: No Advance Directives: No Advance Directives Information Provided: Yes service: No Current occupational status: employed Cognitive needs: No Hearing needs: No Vision needs: Yes Meds Allergies Allergy/AdvReac Type Severity Reaction Status Date / Time morphine AdvReac Unknown withdrawals Verified 03/01/24 08:40 /sweats Home Medications ?Medication ?Instructions ?Recorded ?Confirmed ?Last Taken ?Type metronidazole 0.75 % (37.5 mg/5 1 appful vaginal BID PRN yeast 08/17/23 01/12/24 Unknown History gram) vaginal gel infection metronidazole 500 mg tablet 500 mg PO BID PRN yeast infection 08/17/23 01/12/24 Unknown History Exam Airway Mallampati Class: II (cap bottom laterally) TM Dist: >3cm Neck ROM: Full Heart: rrr Lungs: cta Assessment and Plan Assessment Anesthesia Assessment: Anesthesia Plan Discussed Final Anesthetic Review Family History of Problems with Anesthesia: No History of Problems with Anesthesia: No NPO: Yes ASA Class: III Final Preanesthetic Review: No Changes in Pt Med Stat, Meds/Allgs Chart Reviewed and Consent Obtained/Reviewed Patient Risk: Intermediate Procedure Risk: Intermediate Anesthetic Plan Anesthetic Plan: MAC: Disposition: Standard PACU
[2024-03-12 07:16] VITALS: BP 117/73; PULSE 82; RESP 16; TEMP 36.4; O2SAT 97; BMI 32.2
[2024-03-12] MEDS: Lactated Ringers 1,000 ML 100 ML IVCONT (07:35)
--- NOTE | 2024-03-12 07:45 | MHC.SHP ---
Pre-Procedural Eval Section A - 24 Hr Update-Section A only Date of Service: 03/12/24 The patient is an INPATIENT: No The patient has been examined within 24 hours of the surgical procedure. The History & Physical has been completed within 30 days and I have reviewed it.: No Section B - Complete if H&P > 30 days Chief Complaint: Gastro-esophageal reflux disease without esophagit Relevant Family History (Specify if Yes): Yes Relevant Social History: Tobacco Use (Former smoker) Present Medications: see Short Stay Collaborative assessment Medical History: Significant History (enous insufficiency of both lower extremities Pure hypercholesterolemia SVT (supraventricular tachycardia) Paresthesia of left upper extremity Cardiac arrhythmia Hx of esophageal ulcer Benign essential hypertension Low back pain Vitamin D deficiency Bipolar disorder Alcoholism Obesity (BMI 30-39.9)) History of Previous Operations: Relevant previous surgery/procedure and date(s) (History of incisional hernia repair Hx of section Hx of colonoscopy Hx of endoscopy Hx of gastrostomy (~04/2002) Hx of nasal septoplasty) Allergies: Allergies Allergy/AdvReac Type Severity Reaction Status Date / Time morphine AdvReac Unknown withdrawals Verified 03/01/24 08:40 /sweats Review of Systems Sugical H&P ROS: Negative: Constitution, Cardiovascular, Respiratory and Gastrointestinal Exam Surgical H&P Exam: Normal: Heart, Normal: Lungs, Normal: Extremities and Normal: Abdomen Plan Diagnosis/Plan: Unchanged I have reviewed the history and physical and performed a pertinent physical examination on my patient. No changes have occurred unless specified. Time Spent With Patient Time: Total time managing care of this patient today ____ minutes.
--- NOTE | 2024-03-12 08:54 | P.OPN-COLO_ITS ---
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 Ti Summers MD Anesthesia:?MAC UPPER ENDOSCOPY Consent: Indications for the procedure and potential complications of bleeding, perforation, reaction to medications and missed diagnosis were discussed with the patient and informed consent was obtained. Instrument: Olympus GIF H 190 mid size upper endoscope Monitoring: Vital signs and clinical assessment, continuous EKG monitoring, Pulse oximetry, Carbon Dioxide monitoring and blood pressure monitoring were done throughout the procedure. Procedure: The patient was placed in the left lateral decubitis position and pre-procedure medications were administered and a bite block was placed. The endoscope was inserted into the mouth and advanced under direct vision to the third part of duodenum. A careful inspection was made as the upper endoscope was withdrawn including a retroflexed examination of the proximal stomach; Findings and interventions are described below. Findings: Larynx: Normal Esophagus: GE junction at 34 cms, small hiatal hernia 34 to 36 cms. A 1 cm tongue of possible [place]'s which was biopsied. No esophagitis noted. Stomach: Multiple 5-15 mm benign-appearing polyps in the gastric body and fundus - biopsied. Mild gastric erythema. Biopsies were obtained. Grade 3 flap valve on retroflexed examination of the cardia. Duodenum: Normal bulb and descending duodenum. Biopsies were obtained from 3rd part of the duodenum to check for celiac sprue. Stomach: Multiple 1-2 cms benign appearing polyps in the gastric fundus - biopsied. Moderate diffuse gastric erythema - biopsies were obtained from the antrum. Grade 2 flap valve on retroflexed examination of the cardia. Duodenum: Normal bulb and descending duodenum Biopsies were obtained from descending duodenum to check for celiac sprue Intervention: Biopsies as noted above COLONOSCOPY PROCEDURE NOTE Instrument: Olympus CF H 190 L variable stiffness adult colonoscope Monitoring: Vital signs and clinical assessment, intermittent blood pressure monitoring, continuous EKG monitoring, Pulse oximetry and Carbon Dioxide monitoring were done throughout the procedure. Please see anesthesia flowsheet. Colon withdrawl time was 13 minutes. Procedure: The patient was placed in the left lateral decubitis position and pre-procedure medications were administered. After a digital rectal examination of the ano-rectum, the video colonoscope was inserted into the rectum and advanced through the colon to the cecum. The colonoscope was slowly withdrawn in a retrograde panoramic fashion and the colon mucosa was carefully examined including a retroflexed view of the rectum. Findings and interventions are described below. Procedure Difficulty: without difficulty Findings: Terminal Ileum: Not evaluated Cecum: Normal Ascending Colon: Normal Transverse Colon: Normal Descending Colon: Moderate diverticulosis Sigmoid Colon: Moderate diverticulosis Rectum: Normal Ano-rectum: Small internal hemorrhoids Colon preparation: Excellent, Good in the right colon after some irrigation. [place] Bowel Preparation Scale Right colon; 2 Transverse colon: 3 Left colon; 3 (0 = Unprepared colon segment with mucosa not seen due to solid stool that cannot be cleared. 1 = Portion of mucosa of the colon segment seen, but other areas of the colon segment not well seen due to staining, residual stool and/or opaque liquid. 2 = Minor amount of residual staining, small fragments of stool and/or opaque liquid, but mucosa of colon segment seen well. 3 = Entire mucosa of colon segment seen well with no residual staining, small fragments of stool or opaque liquid) Impression and Post Procedure Diagnosis: Endoscopy Findings: ESOPHAGUS: Small hiatal hernia 34 to 36 cms. A 1 cm tongue of possible [place]'s which was biopsied. No esophagitis noted. STOMACH: Multiple 5-15 mm benign-appearing polyps in the gastric body and fundus - biopsied. Mild gastric erythema. Biopsies were obtained. Grade 3 flap valve on retroflexed examination of the cardia. DUODENUM: Normal- biopsied to check for celiac sprue Colonoscopy Findings: No polyps were detected Random biopsies were obtained from the colon to check for microscopic colitis. Moderate diverticulosis seen in the left colon Small hemorrhoids on retroflexed exam. Plan: Pt to schedule a FU appointment with Kimberly Will NP. Repeat Colonoscopy in 5 years due to a hx of adenomatous colon polyps. Above findings were reviewed with the patient and relevant handouts were given and the discharge area. BIOPSIES SHOWED: A. Small bowel, biopsy: Small intestinal mucosa within normal limits; negative for celiac disease. B. Stomach, antrum, biopsy: Antral-type mucosa with mild chronic inactive inflammation and intestinal metaplasia; negative for dysplasia; no Helicobacter organisms seen. C. Stomach, polyp, biopsy: Fundic gland polyp with background mild chronic inactive inflammation; no Helicobacter organisms seen. D. Colon, left, biopsy: Colonic mucosa within normal limits; negative for microscopic colitis. Letter sent with biopsy results.
[2024-03-12 09:20] VITALS: BP 112/68; PULSE 77; RESP 16; TEMP 36.3; O2SAT 97
[2024-03-12 09:35] VITALS: BP 118/66; PULSE 64; RESP 18; TEMP 36.5; O2SAT 97
== END 2024-03-12 10:28 | disposition home or self-care (01) ==
PROVIDERS: PCP Internal Medicine; Visit Provider Internal Medicine Gastroenterology
PROC: (CPT 45380; principal; 2024-03-12 08:30)
DX: Z12.11 Encounter for screening for malignant neoplasm of colon (principal); K57.30 Diverticulosis of large intestine without perforation or abscess without bleeding; K64.8 Other hemorrhoids; Z86.010 Personal history of colon polyps; K21.9 Gastro-esophageal reflux disease without esophagitis; K29.70 Gastritis, unspecified, without bleeding; K31.7 Polyp of stomach and duodenum; K44.9 Diaphragmatic hernia without obstruction or gangrene; I10 Essential (primary) hypertension; Z85.09 Personal history of malignant neoplasm of other digestive organs; Z80.0 Family history of malignant neoplasm of digestive organs
CPT/HCPCS: 45380; 43239; 88305; 88313; 88342; J2704

== ENCOUNTER → 2024-03-12 07:08 | Outpatient (BNV) | payer OTHER, SELFPAY | PROVIDERS: PCP Internal Medicine; Visit Provider Internal Medicine Gastroenterology | DX: Z12.11 Encounter for screening for malignant neoplasm of colon (principal); Z86.010 Personal history of colon polyps; K57.90 Diverticulosis of intestine, part unspecified, without perforation or abscess without bleeding; K64.8 Other hemorrhoids; K21.9 Gastro-esophageal reflux disease without esophagitis; K29.70 Gastritis, unspecified, without bleeding; K31.7 Polyp of stomach and duodenum | CPT/HCPCS: 43239; 45380 ==

== ENCOUNTER 2024-03-28 10:02 | Outpatient (AMB) | payer OTHER, SELFPAY ==
[2024-03-28 10:21] VITALS: BP 110/68; BMI 32.6
--- NOTE | 2024-03-28 10:21 | A.OFFVIS_ITS ---
Vital Signs 03/28/24 10:21 Height 5 ft 6 in Weight 202 lb BMI 32.6 BP 110/68 Intake Visit Reasons: ? yeast infection Pbx Wire Chief Required: No Pbx Wire Chief Services: Pbx Wire Chief Present Information Interpreted: clinical only Talent Acquisition Specialist: Talent Acquisition Specialist Present Allergies morphine Adverse Reaction (Unknown, Verified 03/28/24 10:22) withdrawals/sweats Medication List - Last Reconciled 03/28/24 by Argelia Kwon CNM albuterol sulfate 90 mcg/actuation (ProAir HFA) 2 puffs inhalation Q6H PRN 30 days cholecalciferol (vitamin D3) 25 mcg PO DAILY 90 days cyclobenzaprine 10 mg PO TID PRN 30 days dicyclomine 10 mg PO QID fluoxetine 20 mg PO DAILY fluticasone propion-salmeterol 45-21 mcg/actuation (Advair HFA) 2 puffs inhalation BID fluticasone propionate 50 mcg/actuation 2 sprays intranasal DAILY PRN 30 days lansoprazole 30 mg PO DAILY lorazepam 1 mg PO Q12H PRN 90 days magnesium oxide 500 mg PO BID 30 days meloxicam 15 mg PO DAILY PRN 90 days metronidazole 0.75%(37.5mg/5gram) 1 appful vaginal BID PRN nystatin 10 mL buccal TID 10 days ondansetron 4 mg PO Q8H PRN phenazopyridine (Pyridium) 100 mg PO TID PRN 6 doses sucralfate (Carafate) 1 g PO BID Is last menstrual period known: No Do you need a note to return to daycare/school/sports/work: No HPI HPI ? yeast infection: Details: Patient complaining of an area in her groin that gets very itchy and cracks open sometimes she has been lunging in the pool in her back yd but changing out of the wet bathing suit right away and blow drying with a hair germ drier so it is so much better and is really not bad now but she wants to have a refill on a cream that she had from 2017 of clotrimazole betamethasone that she uses when she nee ds and it works very well. She is also going to be going to [place] and anticipates being very hot there.. She also has been having other health concerns but does not have an appointment with her primary care provider till July she says sometimes when she gets up she feels dizzy and she does not know from change in position or still getting used to her new glasses. She says her appetite is decreased and she eats about once a day accept last night she had a craving for sour patch kids and ate a bunch of them. I suggested that what she really needs to do for that as make an appointment with her primary care provider and described all the symptoms. I did suggest considering looking at diet and exercise. [facility] Medical History Potential exposure to STD Hot flashes Venous insufficiency of both lower extremities Pure hypercholesterolemia SVT (supraventricular tachycardia) Paresthesia of left upper extremity Cardiac arrhythmia Hx of esophageal ulcer Benign essential hypertension Low back pain Vitamin D deficiency Bipolar disorder Alcoholism Obesity (BMI 30-39.9) Anxiety Left shoulder pain Family history of breast cancer Bipolar 1 disorder Depression Surgical History History of breast augmentation Hx of nasal septoplasty History of incisional hernia repair Hx of colonoscopy Hx of section Hx of gastrostomy (~04/2002) Hx of endoscopy Family History Father Esophagus cancer, Onset Age: 63 Mother Breast cancer, Onset Age: 46 Maternal Grandfather Cancer Paternal Aunt Breast cancer Maternal Aunt Breast cancer Social History Household Members: None Housing: House Alcohol intake: current Alcohol intake frequency: 3 or more drinks per day Alcohol type: hard liquor Patient Tobacco Use Status: Current everyday Tobacco user Cigarettes Per Day: 5 Years Smoked: rarely- occasional smoker e-Cigarette/Vaping Use: Never Used Second Hand Smoke Exposure: Yes service: No Current occupational status: employed Cognitive needs: No Hearing needs: No Vision needs: Yes Female Reproductive History Menstrual Age of Menarche: 14 Duration of menses: 3-5 days control method: none Total pregnancies: 3 Full term: 2 Date of last pap smear: 03/28/24 (negative,2018,WNL) History of abnormal pap smear: No Physical Exam Vital Signs: Last Vital Signs BP 110/68 03/28/24 10:21 BMI result Body Mass Index 32.6 Other: External exam only good skin integrity in both groin areas right is slightly more pink than left but not inflamed at all and appears to be very well healed from a flare-up of tinea. Assessment & Plan Assessment & Plan (1) Tinea: Comment: Mostly healed, in groin ,acts up when she is perspiring or wearing underwear, wants refill on clotrimazole betamethasone.... Code(s): B35.9 - Dermatophytosis, unspecified Category: Medical Plan Discussed that the chlorine in the pool was probably eating in helping it heal as well as her self-care of drying it and changing out of her bathing suit when she is done being in the pool. The drying is helping a lot to refills sent on her clotrimazole betamethasone cream that she had from 2018 to use sparingly only when she really needs it and to consider using Monistat powder as the primary agent if she feels she is getting irritated and itchy there paying attention to the material of the fabric on the elastic of her underwear would also be beneficial as well as avoiding being sweaty. Recommend considering looking at her diet and intake and what she is eating in adding some exercise to feel better but also make an appointment with her primary care provider and discuss other symptoms. Medications: New clotrimazole-betamethasone 1-0.05 % Use sparingly only when necessary up to 2 weeks maximum at a time. 1 appl topical BID 2 weeks 45 grams 1RF miconazole nitrate 2% 1 appl topical BID 85 grams 2RF Coding Level of Care Code Est Pt Level 3 (28476) Diagnoses Tinea B35.9
== END 2024-03-28 11:11 | disposition home or self-care (01) ==
LOC: HO.HWSM 10:02
PROVIDERS: PCP Internal Medicine; Visit Provider Advanced Practice Midwife
DX: B35.9 Dermatophytosis, unspecified (principal)
CPT/HCPCS: 99213

== ENCOUNTER → 2024-03-28 10:02 | Outpatient (BNVA) | payer OTHER, SELFPAY | PROVIDERS: PCP Internal Medicine; Visit Provider Advanced Practice Midwife | DX: B35.9 Dermatophytosis, unspecified (principal); R10.30 Lower abdominal pain, unspecified | CPT/HCPCS: 99212 ==

== ENCOUNTER 2024-05-03 09:50 | Outpatient (REF) | payer OTHER, SELFPAY ==
[2024-05-03 10:06] LABS: MANUAL DIFF FLAG NO
[2024-05-03 10:40] LABS: Appearance Urine Cloudy; Color Urine Yellow; Glucose Urine UA Negative (Negative); Leukocyte Esterase Urine Negative (Negative); Nitrite Urine Negative (Negative); PH 8.5 (5.0-9.0); Specific Gravity - Urine 1.015 (1.005-1.025); Urine Blood Negative (Negative); Urine Ketones Negative (Negative); Urine Protein Negative (Neg-Trace)
[2024-05-03 10:49] LABS: Basophils Absolute Auto 0.1 X10*3/uL (0.0-0.2); Basophils Percent Auto 1.3 % (0-2); Eosinophils Absolute Auto 0.1 X10*3/uL (0.0-0.4); Eosinophils Percent Auto 2.5 % (0-4); Hematocrit 39.9 % (37.0-47.0); Imm Gran Abs Auto 0.02 X10*3/uL (0.00-0.03); Imm Gran Pct Auto 0.4 % (0.0-0.4); Lymphocytes Absolute Auto 1.9 X10*3/uL (1.2-4.9); Lymphocytes Percent Auto 35.3 % (20-40); Mean Corpuscular HGB Conc 32.6 g/dl (31.0-35.0); Mean Corpuscular Hemoglobin 29.4 pg (27.0-33.0); Mean Corpuscular Volume 90.3 fL (80.0-98.0); Mean Platelet Volume 9.9 fL (9.4-12.3); Monocytes Absolute Auto 0.4 X10*3/uL (0.1-1.2); Monocytes Percent Auto 7.6 % (2-11); Neutrophils Absolute Auto 2.8 x10*3/uL (2.0-8.3); Neutrophils Percent Auto 52.9 % (45-73); Platelet Count 313 X10*3/uL (160-400); Red Blood Count 4.42 X10*6/uL (4.20-5.50); Red Cell Distribution Width 13.5 % (11.0-16.0); White Blood Count 5.3 X10*3/uL (4.8-10.8)
[2024-05-03 10:54] LABS: Estimated Average Glucose 111 mg/dL; Hemoglobin A1c % 5.5 % (<6.0)
[2024-05-03 11:18] LABS: Alanine Aminotransferase 13 U/L (0-31); Albumin Level 4.1 g/dL (3.5-5.0); Alkaline Phosphatase 62 U/L (39-117); Anion Gap 12 (12-20); Aspartate Amino Transferase 16 U/L (5-31); Bilirubin Total 0.4 mg/dL (0.0-1.0); Blood Urea Nitrogen 8 mg/dL (9-16); Calcium 9.3 mg/dL (8.4-10.2); Carbon Dioxide 27 mmol/L (22-29); Chloride 104 mmol/L (96-108); Cholesterol 219 mg/dL (<200); Estimated Glomerular Filt Rate > 60; Glucose Fasting 103 mg/dL (60-99); HDL Cholesterol 56 mg/dL (>40); LDL Cholesterol Calculated 149 mg/dL (<100); Magnesium 2.1 mg/dL (1.6-2.6); Potassium 4.8 mmol/L (3.3-5.1); Sodium 138 mmol/L (135-145); Triglycerides 70 mg/dL (<150)
[2024-05-03 11:38] LABS: TSH reflex Free T4 2.15 uIU/mL (0.32-4.0); Vitamin D 25-OH Total 39.6 ng/mL (>30)
[2024-05-03 11:39] LABS: Folate 7.7 ng/mL (> or = 4.0); Vitamin B12 342 pg/mL (200-900)
== END 2024-05-03 09:51 | disposition home or self-care (01) ==
LOC: HO.LAB 09:50
PROVIDERS: PCP Internal Medicine; Visit Provider Internal Medicine
DX: Z00.00 Encounter for general adult medical examination without abnormal findings (principal); E78.00 Pure hypercholesterolemia, unspecified; R25.2 Cramp and spasm; E53.8 Deficiency of other specified B group vitamins; D64.9 Anemia, unspecified; R30.0 Dysuria; E83.52 Hypercalcemia; R73.9 Hyperglycemia, unspecified
CPT/HCPCS: 36415; 80053; 80061; 81003; 82306; 82607; 82746; 83036; 83735; 84443; 85025

== ENCOUNTER 2024-06-21 12:38 | Outpatient (AMB) | payer OTHER, SELFPAY ==
[2024-06-21 12:42] VITALS: BP 110/78; PULSE 84; O2SAT 97; BMI 32.4
--- NOTE | 2024-06-21 12:42 | MHC.PC.OV ---
Vital Signs 06/21/24 12:42 Height 5 ft 6 in Weight 200 lb 8 oz BMI 32.4 BP 110/78 Blood Pressure Location Lt brachial Position Sitting Pulse 84 Pulse Source Pulse Oximeter Pulse Oximetry (%) 97 Oxygen Delivery Method Room Air Intake Visit Reasons: pe Glove Brusher Required: No Accompanied by: Self / Same As Patient Allergies morphine Adverse Reaction (Unknown, Verified 06/22/24 05:06) withdrawals/sweats Medication List - Last Reconciled 06/22/24 by Vishal Brock MD albuterol sulfate 90 mcg/actuation (ProAir HFA) 2 puffs inhalation Q6H PRN 30 days cholecalciferol (vitamin D3) 25 mcg PO DAILY 90 days clotrimazole-betamethasone 1-0.05 % 1 appl topical BID 2 weeks cyclobenzaprine 10 mg PO TID PRN 30 days dicyclomine 10 mg PO QID fluoxetine 20 mg PO DAILY fluticasone propion-salmeterol 45-21 mcg/actuation (Advair HFA) 2 puffs inhalation BID fluticasone propionate 50 mcg/actuation 2 sprays intranasal DAILY PRN 30 days lansoprazole 30 mg PO DAILY lorazepam 1 mg PO Q12H PRN 90 days magnesium oxide 500 mg PO BID 30 days meloxicam 15 mg PO DAILY PRN 90 days metronidazole 0.75%(37.5mg/5gram) 1 appful vaginal BID PRN miconazole nitrate 2% 1 appl topical BID nystatin 10 mL buccal TID 10 days ondansetron 4 mg PO Q8H PRN phenazopyridine (Pyridium) 100 mg PO TID PRN 6 doses semaglutide (weight loss) (Wegovy) 0.25 mg (0.5 mL) subcut QWEEK 4 weeks sucralfate (Carafate) 1 g PO BID Tobacco use date assessed: 06/21/24 Dental Screening Dental Screen Date: 06/21/24 Did you have a dental visit in the last 12 months?: Yes Did you have a dental problem in the last 6 months where you did not have access to dental care?: No Was dental information given to patient?: Patient has dentist HPI pe HPI Details Patient comes in today for her annual physical examination States that she is presently still feeling very depressed due to her son passing away suddenly last month (05/12/2024) following a motor vehicle accident She has been referred to psychiatry for counseling last month but she states that she has not yet been contacted for an appointment She denies any headaches or dizziness Denies any chest pains, no SOB No nausea/vomiting, no abdominal pain No change in bowel habits noted She denies any acute urinary symptoms She had her follow up labs done last month She had her screening colonoscopy done with Dr. Summers back in March 2024 - due to past Hx of tubular adenoma, she was advised to get repeat colonoscopy in 5 years She had her mammogram done back in January 2024 and is due for repeat in 1 year Her pap smear was last done in May 2023 and she has her next annual gynecology appointment scheduled for next month [facility] Medical History (Updated 06/24/24 @ 05:52 by Vishal Brock MD) Potential exposure to STD Hot flashes Venous insufficiency of both lower extremities Pure hypercholesterolemia SVT (supraventricular tachycardia) Paresthesia of left upper extremity Cardiac arrhythmia Hx of esophageal ulcer Benign essential hypertension Low back pain Vitamin D deficiency Bipolar disorder Alcoholism Obesity (BMI 30-39.9) Anxiety Left shoulder pain Family history of breast cancer Bipolar 1 disorder Depression Surgical History (Updated 06/22/24 @ 09:13 by Vishal Brock MD) History of breast augmentation Hx of nasal septoplasty History of incisional hernia repair Hx of colonoscopy Hx of section Hx of gastrostomy (~04/2002) Hx of endoscopy Family History Father Esophagus cancer, Onset Age: 63 Mother Breast cancer, Onset Age: 46 Maternal Grandfather Cancer Paternal Aunt Breast cancer Maternal Aunt Breast cancer Social History Household Members: None Housing: House Alcohol intake: current Alcohol intake frequency: holidays/special occasions only Patient Tobacco Use Status: Current everyday Tobacco user Cigarettes Per Day: 5 Years Smoked: rarely- occasional smoker e-Cigarette/Vaping Use: Never Used Second Hand Smoke Exposure: Yes service: No Current occupational status: employed Cognitive needs: No Hearing needs: No Vision needs: Yes Female Reproductive History Menstrual Age of Menarche: 14 Questionnaire PHQ-9 Over the last 2 weeks, how often have you been bothered by any of the following problems? 1. Little interest or pleasure in doing things: not at all 2. Feeling down, depressed, or hopeless: not at all 3. Trouble falling or staying asleep, or sleeping too much: not at all 4. Feeling tired or having little energy: not at all 5. Poor appetite or overeating: not at all 6. Feeling bad about yourself - or that you are a failure or have let yourself or your family down: not at all 7. Trouble concentrating on things, such as reading the newspaper or watching television: not at all 8. Moving or speaking so slowly that other people could have noticed. Or the opposite - being so fidgety or restless that you have been moving around a lot more than usual: not at all 9. Thoughts that you would be better off or of hurting yourself in some way: not at all Total score: 0 Depression Screening Interpretation: Negative (is on Rx) Depression Screening Done: Yes 72563 - PHQ-9 Billing: Yes Source: Developed by Drs. Jack Hyde, Bertha Washington, Lon Tijerina and colleagues, with an educational nayeli from [employer] Thrive Questionnaire Date Thrive assessed: 06/21/24 I am a: Patient What is your living situation today?: I have a steady place to live Within the past 12 months, did the food you bought not last and you didn't have the money to get more?: Never true Within the past 12 months, did you worry whether your food would run out before you got money to buy more?: Never true Do you have trouble paying for medicines?: No Do you have trouble getting transportation to medical appointments?: No Do you have trouble paying your heating and electricity bill?: No Do you have trouble taking care of your child, family member or friend?: No Do you have trouble with day-to-day activities such as bathing, preparing meals, shopping, managing finances, etc.?: No Are you currently unemployed and looking for a job?: No Are you interested in more education?: No Please select the resources that you would like help with: None Currently or been in a relationship where the following occur: No concerns reported THRIVE Score: 0 AUDIT C Alcohol Use Questionnaire (AUDIT-C) 1. How often do you have a drink containing alcohol?: Monthly or less 2. How many drinks containing alcohol do you have on a typical day when you are drinking?: 1 or 2 3. How often do you have six or more drinks on one occasion?: Never Total Score: 1 Score Reviewed/Action Taken: Yes DARBY-7 AMB Questionnaire DARBY-7 Date DARBY - 7 assessed: 06/21/24 Feeling nervous, anxious, or on edge: 0 = Not at all Not being able to stop or control worryin = Not at all Worrying too much about different things: 0 = Not at all Trouble relaxin = Not at all Being so restless that it is hard to sit still: 0 = Not at all Becoming easily annoyed or irritable: 0 = Not at all Feeling afraid as if something awful might happen: 0 = Not at all Total DARBY-7 score (0-4 normal; 5-9 mild; 10-14 moderate; 15-21 severe): 0 Source: Developed by Drs. Jack Hyde, Bertha Washington, Lon Tijerina and colleagues, with an educational nayeli from [employer]). Review of Systems Const Denies chills, Denies fatigue, Denies fever(s), Denies headache(s) and Denies malaise Eyes Denies blurry vision, Denies change in vision, Denies irritation and Denies itchy eyes ENT Denies dysphagia, Denies dizziness, Denies otalgia, Denies headache(s), Denies nasal congestion, Denies neck pain, Denies odynophagia, Denies sinus pain and Denies sore throat Card Denies chest pain, Denies rapid heart rate, Denies irregular heart rhythm, Denies palpitations and Denies dyspnea Resp Denies chest congestion, Denies cough, Denies dyspnea and Denies wheezing GI Denies abdominal pain, Denies bloating, Denies constipation, Denies dysphagia, Denies heartburn, Denies diarrhea, Denies nausea, Denies odynophagia and Denies vomiting Denies hematuria, Denies urinary frequency, Denies dysuria, Denies urinary incontinence and Denies urinary urgency Musc Denies back pain, Denies arthralgias, Denies joint swelling, Denies muscle weakness and Denies neck pain Skin/Breast Denies breast pain, Denies breast mass, Denies change in pigmentation, Denies lesions, Denies rash and Denies unusual bruising Neuro Denies dizziness, Denies headache(s) and Denies paresthesias Psych Denies anxiety and Reports depression (primarily due to her son's untimely passing last month ) Endo Denies fatigue and Denies palpitations Jomar/Lymph Denies easy bruising Aller/Immun Denies itchy eyes and Denies wheezing Physical exam (Primary Care) Vital Signs: Last Vital Signs Pulse 84 06/21/24 12:42 BP 110/78 06/21/24 12:42 Pulse Ox 97 06/21/24 12:42 Oxygen Delivery Method Room Air 06/21/24 12:42 BMI result Body Mass Index 32.4 Tobacco/Smoking Status: Tobacco use Status Tobacco use date assessed 06/21/24 06/21/24 12:44 Patient Tobacco Use Status Current everyday Tobacco 06/21/24 12:44 Tobacco use type 08/17/23 16:37 e-Cigarette/Vaping Use Never Used 06/21/24 12:44 PHQ-9: PHQ-9 Score PHQ-9: Total score 0 06/22/24 09:17 Depression Screening Interpretation: Negative (is on Rx) Thrive Assessment: Date of Thrive Assessment Date Thrive assessed 06/21/24 06/21/24 12:44 Currently or been in a relationship where the following occur: No concerns reported Const General: no acute distress, alert and awake Orientation/consciousness: patient oriented x3 HENMT Head: Yes normocephalic and Yes atraumatic Ears: external ears normal, TM's normal bilaterally and EAC's normal General nose exam: No nasal discharge present Face and sinus: Yes normal facial exam and Yes sinuses nontender Teeth and gingiva: dentition normal Throat: Yes posterior oropharynx normal and Yes tonsils normal (no TP congestion) Eyes Eyelids: Yes eyelids normal Conjunctivae: conjunctivae normal Pupils: Equal, round and reactive pupils present EOM: EOMs intact bilaterally Neck Neck: Yes no lymphadenopathy and Yes supple Thyroid: Thyroid normal Resp Auscultation: clear to auscultation bilaterally, no rales and no wheezes Cardio Rate: regular rate Rhythm: regular rhythm Heart sounds: no murmurs GI Palpation (GI): Soft to palpation, nontender and No hepatosplenomegaly present Auscultation: normal bowel sounds General: Yes no CVA tenderness Back/Spine/Pelvis Back: no CVA tenderness Cervical Spine: Cervical spine tenderness (mild) Thoracic/Lumbar Spine: thoracic spinal tenderness (mild) Skin Lesions: no lesions Rashes: no rashes Neuro General: patient oriented x3, moves all extremities, no focal motor deficits and CN's II-XI intact bilaterally Cranial nerves: Yes Equal, round and reactive pupils present Cognition (Neuro): normal cognition Gait exam (Neuro): Normal gait present Extrem General: Yes no clubbing, cyanosis or edema Results Reviewed Results Reviewed: Laboratory Tests 05/03/24 05/03/24 09:54 10:05 WBC 5.3 Hgb 13.0 Hct 39.9 Plt Count 313 Sodium 138 Potassium 4.8 D Creatinine 0.78 Estimated GFR > 60 Fasting Glucose 103 H Hemoglobin A1c % 5.5 Calcium 9.3 Magnesium 2.1 AST 16 ALT 13 Triglycerides 70 Cholesterol 219 H LDL Cholesterol, Calc 149 H HDL Cholesterol 56 Vitamin B12 342 25-OH Vitamin D Total 39.6 TSH 2.15 Ur Specific [place] 1.015 Urine Protein Negative Urine Glucose (UA) Negative Urine Blood Negative Urine Nitrite Negative Ur Leukocyte Esterase Negative Assessment and Plan Assessment & Plan (1) Annual physical exam: Code(s): Z00.00 - Encounter for general adult medical examination without abnormal findings Plan: Results of her labs done last month reviewed and discussed with patient She had her screening colonosocopy done with Dr. Summers back in March 2024 - due to past Hx of tubular adenoma, she was advised to get repeat colonoscopy in 5 years She had her mammogram done back in January 2024 and is due for repeat in 1 year Her pap smear was last done in May 2023 and she has her next annual gynecology appointment scheduled for next month (2) Benign essential hypertension: Code(s): I10 - Essential (primary) hypertension Plan: Reinforced low sodium diet Continue Metoprolol ER 50 mg QD (3) Cardiac arrhythmia: Code(s): I49.9 - Cardiac arrhythmia, unspecified Qualifiers: Arrhythmia type: unspecified cardiac arrhythmia Qualified Code(s): I49.9 - Cardiac arrhythmia, unspecified Plan: This is most likely occasional SVTs - extended Holter monitor done last year revealed only occasional SVTs that did not correlate with patient's symptoms Her palpitations have reportedly not occurred in a while now She is on Metoprolol ER, which helps keep her symptoms in check; may increase dose of Rx if symptoms recur Follow-up with cardiology as scheduled (4) Pure hypercholesterolemia: Code(s): E78.00 - Pure hypercholesterolemia, unspecified Plan: Patient is reminded that her cholesterol level was still high when her fasting lipid profile was most recently checked back in July 2022 although they have improved from the year before Reinforced low cholesterol diet Have recommended that she start on Rx to help lower her cholesterol in the past but patient declined and would like to continue with diet modification at this time Will have her recheck her labs and fasting lipids in 6 months for follow up (5) Anemia: Code(s): D64.9 - Anemia, unspecified Qualifiers: Anemia type: iron deficiency Iron deficiency anemia type: unspecified iron deficiency Qualified Code(s): D50.9 - Iron deficiency anemia, unspecified Plan: This is due to iron deficiency as her iron level was low when last checked Patient could not tolerate oral iron supplements in the past She was referred to hematology for consideration for IV iron infusion - was seen by hematology back in December 2022 and has received Venofer infusion 200 mg weekly x 5 doses Her anemia has improved/corrected since, with her most recent CBC done last month showing a normal H/H at 13.0/39.9 Will recheck her CBC in 6 months for follow up Follow up with hematology as scheduled (6) GERD (gastroesophageal reflux disease): Code(s): K21.9 - Gastro-esophageal reflux disease without esophagitis Qualifiers: Esophagitis presence: without esophagitis Qualified Code(s): K21.9 - Gastro-esophageal reflux disease without esophagitis Plan: Dietary restrictions reinforced Continue Lansoprazole 30 mg QD and Sucralfate 1 gm BID Follow up with GI as scheduled (7) IBS (irritable bowel syndrome): Code(s): K58.9 - Irritable bowel syndrome without diarrhea Qualifiers: Irritable bowel syndrome type: unspecified Qualified Code(s): K58.9 - Irritable bowel syndrome without diarrhea Plan: Continue Dicyclomine 10 mg QID PRN; also takes Compazine 5 mg TID PRN Follow up with GI as scheduled (8) Left ankle pain: Comment: S/P fall 2 days ago on 03/11/23 Code(s): M25.572 - Pain in left ankle and joints of left foot Qualifiers: Chronicity: acute Qualified Code(s): M25.572 - Pain in left ankle and joints of left foot Plan: X-rays of the left ankle done back in March 2023 revealed (+) posterior and plantar calcaneal spurs with no acute fractures or lesions MRI of the ankle done in June 2023 revealed (+) Grade 2 sprain/partial tear of the dorsal talonavicular ligament Will refer her to podiatry for further evaluation and management (9) Thoracic spondylosis: Comment: 2013 thoracic spine xray shows spondylosis and multilevel osteophytes so consider repeat study and possible MRI of spine for her continued pain not r/t eating or bowel movement. Code(s): M47.814 - Spondylosis without myelopathy or radiculopathy, thoracic region Plan: Reinforced activity and weight-lifting restrictions Continue Cyclobenzaprine 10 mg TID PRN and Meloxicam 15 mg QD with food PRN (10) Paresthesia of left upper extremity: Code(s): R20.2 - Paresthesia of skin Plan: States that her left arm symptoms have been stable lately and are much milder in severity Cervical spine x-rays done a few months ago revealed only mild cervical spondylolysis; x-rays of the left shoulder came back normal WIll consider referring to physical therapy if symptoms persist or get worse (11) Vitamin D deficiency: Code(s): E55.9 - Vitamin D deficiency, unspecified Plan: Continue Vitamin D3 1000 units QD (12) Venous insufficiency of both lower extremities: Code(s): I87.2 - Venous insufficiency (chronic) (peripheral) Plan: S/P laser venous ablation of both legs with Dr. Noreen Leon (right leg in late November 2022 and left leg in January 2023) Follow up with vascular surgery as scheduled (13) Bilateral leg cramps: Code(s): R25.2 - Cramp and spasm Plan: Continue Magnesium tablets 500 mg BID Will need to consider work up and Tx for RLS if symptoms persist (14) Alcoholism: Code(s): F10.20 - Alcohol dependence, uncomplicated Plan: Counseled again on staying sober Continue Chlordiazepoxide 25 mg 2 tabs every 6 to 8 hours PRN and Naltrexone 50 mg QD; continue Magnesium Oxide 500 mg BID - states that the magnesium tablets helps with her leg cramps as well (15) Anxiety: Code(s): F41.9 - Anxiety disorder, unspecified Plan: Continue Lorazepam 1 mg 1/2 to 1 tablet BID PRN (16) Bipolar disorder: Code(s): F31.9 - Bipolar disorder, unspecified Qualifiers: Active/Remission status: currently active Current bipolar episode type: depressed Current episode severity: unspecified Qualified Code(s): F31.30 - Bipolar disorder, current episode depressed, mild or moderate severity, unspecified Plan: Continue Fluoxetine 20 mg QD She has been feeling very depressed over the past month due to her son passing away suddenly last month (05/12/2024) following a motor vehicle accident She has been referred to psychiatry for counseling last month but states that she has not yet been contacted for an appointment Have reached out to nurse navigators today to help patient get this expedited (17) Obesity (BMI 30-39.9): Code(s): E66.9 - Obesity, unspecified Plan: Reinforced diet/exercise as tolerated/lose weight Per request, will try starting her on Semaglutide 0.25 mg SQ once a week to help her lose some weight Plan Follow up in 6 months Orders: Orders Complete Blood Count Auto Diff 6 Months D64.9 - Anemia, unspecified Comprehensive [place]. Panel Fast 6 Months E78.00 - Pure hypercholesterolemia, unspecified TSH reflex Free T4 6 Months E78.00 - Pure hypercholesterolemia, unspecified Lipid Panel 6 Months E78.00 - Pure hypercholesterolemia, unspecified UA CC w/rflx Micro + Cult 6 Months R30.0 - Dysuria Referrals Podiatry Referral M79.672 - Pain in left foot, M79.675 - Pain in left toe(s) Medications: New semaglutide (weight loss) (Wegovy) administer weeks 1 through 4 of therapy 0.25 mg (0.5 mL) subcut QWEEK 2 mL 1RF 4 weeks E66.9 - Obesity, unspecified Coding Level of Care Code Est Pt Prev Care 40-64y(69240) Diagnoses Annual physical exam Z00.00 Benign essential hypertension I10 Cardiac arrhythmia, unspecified cardiac arrhythmia type I49.9 Arrhythmia type: unspecified cardiac arrhythmia Pure hypercholesterolemia E78.00 Iron deficiency anemia, unspecified iron deficiency anemia type D50.9 Anemia type: iron deficiency Iron deficiency anemia type: unspecified iron deficiency Gastroesophageal reflux disease without esophagitis K21.9 Esophagitis presence: without esophagitis Irritable bowel syndrome, unspecified type K58.9 Irritable bowel syndrome type: unspecified Acute left ankle pain M25.572 Chronicity: acute Thoracic spondylosis M47.814 Paresthesia of left upper extremity R20.2 Vitamin D deficiency E55.9 Venous insufficiency of both lower extremities I87.2 Bilateral leg cramps R25.2 Alcoholism F10.20 Anxiety F41.9 Bipolar affective disorder, current episode depressed, current episode severity unspecified F31.30 Active/Remission status: currently active Current bipolar episode type: depressed Current episode severity: unspecified Obesity (BMI 30-39.9) E66.9
== END 2024-06-21 13:54 | disposition home or self-care (01) ==
PROVIDERS: PCP Internal Medicine; Visit Provider Internal Medicine
DX: Z00.00 Encounter for general adult medical examination without abnormal findings (principal); F31.30 Bipolar disorder, current episode depressed, mild or moderate severity, unspecified; F10.20 Alcohol dependence, uncomplicated; I10 Essential (primary) hypertension; I49.9 Cardiac arrhythmia, unspecified; E78.00 Pure hypercholesterolemia, unspecified; D50.9 Iron deficiency anemia, unspecified; K21.9 Gastro-esophageal reflux disease without esophagitis; K58.9 Irritable bowel syndrome, unspecified; M47.814 Spondylosis without myelopathy or radiculopathy, thoracic region; M25.572 Pain in left ankle and joints of left foot; R20.2 Paresthesia of skin

== ENCOUNTER → 2024-06-21 12:38 | Outpatient (BNVA) | payer OTHER, SELFPAY | PROVIDERS: PCP Internal Medicine; Visit Provider Internal Medicine | DX: Z00.00 Encounter for general adult medical examination without abnormal findings (principal); F31.30 Bipolar disorder, current episode depressed, mild or moderate severity, unspecified; F41.9 Anxiety disorder, unspecified; I10 Essential (primary) hypertension; I49.9 Cardiac arrhythmia, unspecified; E78.00 Pure hypercholesterolemia, unspecified; D50.9 Iron deficiency anemia, unspecified; K21.9 Gastro-esophageal reflux disease without esophagitis; K58.9 Irritable bowel syndrome, unspecified; M25.572 Pain in left ankle and joints of left foot; M47.814 Spondylosis without myelopathy or radiculopathy, thoracic region; R20.2 Paresthesia of skin; E55.9 Vitamin D deficiency, unspecified; I87.2 Venous insufficiency (chronic) (peripheral); R25.2 Cramp and spasm; F10.20 Alcohol dependence, uncomplicated; E66.9 Obesity, unspecified | CPT/HCPCS: 99396 ==

== ENCOUNTER 2024-07-12 15:09 | Outpatient (AMB) | payer OTHER, SELFPAY ==
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
== END 2024-07-12 16:04 | disposition home or self-care (01) ==
LOC: HO.HOP 15:09
PROVIDERS: PCP Internal Medicine; Visit Provider Clinical Nurse Specialist Psychiatric/Mental Health
DX: F33.0 Major depressive disorder, recurrent, mild (principal); F43.21 Adjustment disorder with depressed mood
CPT/HCPCS: 90792

== ENCOUNTER → 2024-07-12 15:09 | Outpatient (BNVA) | payer OTHER, SELFPAY | PROVIDERS: PCP Internal Medicine; Visit Provider Clinical Nurse Specialist Psychiatric/Mental Health | DX: F33.0 Major depressive disorder, recurrent, mild (principal); F43.21 Adjustment disorder with depressed mood | CPT/HCPCS: 90792 ==

== ENCOUNTER 2024-08-21 15:05 | Outpatient (AMB) | payer OTHER, SELFPAY ==
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
== END 2024-08-21 16:07 | disposition home or self-care (01) ==
LOC: HO.HOP 15:05
PROVIDERS: PCP Internal Medicine; Visit Provider Clinical Nurse Specialist Psychiatric/Mental Health
DX: F33.0 Major depressive disorder, recurrent, mild (principal); F43.21 Adjustment disorder with depressed mood
CPT/HCPCS: 90833; 99214

== ENCOUNTER → 2024-08-21 15:05 | Outpatient (BNVA) | payer OTHER, SELFPAY | PROVIDERS: PCP Internal Medicine; Visit Provider Clinical Nurse Specialist Psychiatric/Mental Health | DX: F33.0 Major depressive disorder, recurrent, mild (principal); F43.21 Adjustment disorder with depressed mood | CPT/HCPCS: 99212 ==

== ENCOUNTER 2024-09-04 15:07 | Outpatient (AMB) | payer OTHER, SELFPAY ==
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
--- OUTSIDE RECORDS SUMMARY | 2024-09-11 15:05 | XMS_ITS | Continuity of Care Document ---
Author Organization [facility] Address [address] [place] [address] Phone Care Team Providers Care Desktop Publishing Operator Name Role Phone Edward RIVAS FACS [...] Providers Copied on Encounter [facility], [address] [place] [address] Dr [address]Mary [place], [id number], [place] tel:[phone] CVR - [facility] No Information 3 Edward Gardiner. [address], [address], [place], [address], [place]. tel:[phone] Referring Provider: Vishal Brock MD, [address], [place], [address]. tel:[phone] [facility], [address] [place] [address] Dr [address]Mary [place], [id number], [place] tel:[phone] CVR - [facility] Encounter for follow-up examination after completed treatment for conditions other than malignant neoplasmPain in left leg 3 Edward Gardiner. [address], [address], [place], [address], [place]. tel:[phone] Referring Provider: Vishal Brock MD, [address], [place], [address]. tel:[phone] Office/Outpt E&M Established 15 Mins [facility], [address] [place] [address] Dr [address]Suite Mary Alvarez MD, [id number], [place] tel:[phone] [facility] (idiopathic) with other complications of left lower extremity 3 Edward Gardiner. [address], [address], [place], [address], [place]. tel:[phone] Referring Provider: Vishal Brock MD, [address], [place], [address]. tel:[phone] Office/Outpt E&M Established 15 Mins [facility], [address] [place] [address] Dr [address]Mary [place], [id number], [place] tel:[phone] [facility] venous htn w oth comp of bilateral low extrm 3 Edward RIVAS FACS RVT CARRIE Gardiner. [address], [address], [place], [address], [place]. tel:[phone] Referring Provider: Vishal Brock MD, [address], [place], [address]. tel:[phone] [facility], [address] [place] [address] Dr [address]Mary [place], [id number], [place] tel:[phone] [facility] - [place] [facility] [place] No Information 3 Edward RIVAS FACS RVT CARRIE Gardiner. [address], [address], [place], [address], [place]. [phone] Referring Provider: Vishal Brock MD, [address], [place], [address]. tel:[phone] [facility], [address] [place] [address] Dr [address]Mary [place], [id number], [place] tel:[phone] CV[facility] - [place] [facility] [place] Encntr for f/u exam aft trtmt for cond oth than malig neoplmVenous insufficiency (chronic) (peripheral) 3 Edward RIVAS FACS RVT CARRIE Gardiner. [address], [address], [place], [address], [place]. [phone] Referring Provider: Vishal Brock MD, [address], [place], [address]. tel:[phone] [facility], [address] [place] [address] [address]Mary [place], [id number], [place] tel:[phone] [facility] - [place] [facility] [place] Venous insufficiency (chronic) (peripheral) 3 Edward RIVAS FACS RVT CARRIE Gardiner. [address], [address], [place], [address], [place]. tel:[phone] Referring Provider: Vishal Brock MD, [address], [place], [address]. tel:[phone] [facility], [address] [place] [address] [address]Mary [place], [id number], [place] tel:[phone] [facility] - [place] [facility] [place] Venous insufficiency (chronic) (peripheral) 3 Edward RIVAS FACS T CARRIE Gardiner. [address], [address], [place], [address], [place]. [phone] Referring Provider: Vishal Brock MD, [address], [place], [address]. 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 [address], [address], [place], [place], [id number] , [place]. [phone] Referring Provider: Vishal Brock MD, [address], [place], [address]. tel:[phone] [facility], [address] [place] [address] [address] 1000Mary [place], [id number], [place] tel:[phone] [facility] - [place] [facility] [place] Encntr for f/u exam aft trtmt for cond oth than malig neoplmVenous insufficiency (chronic) (peripheral) 3 Edward RIVAS FACS T CARRIE Gardiner. [address], [address], [place], [address], [place]. [phone] Referring Provider: Vishal Brock MD, [address], [place], [address]. tel:[phone] [facility], [address] [place] [address] Dr Thomas [address] 1000Mary [place], [id number], [place] tel:[phone] [facility] - [place] [facility] [place] Venous insufficiency (chronic) (peripheral) 3 Edward RIVAS FACS T CARRIE Gardiner. [address], [facility] [address], [place], [address], [place]. tel:[phone] Referring Provider: Vishal Brock MD, [address] [place] [address] Dr [address], [place], [address]. tel:[phone] [facility], [address], [place], [id number], [place] tel:[phone] [facility] - [facility] Venous insufficiency (chronic) (peripheral) 3 Edward RIVAS FACS T CARRIE Gardiner. [address], [address], [place], [address], [place]. tel:[phone] Referring Provider: Vishal Brock MD, [address] [place] [address] Dr [address], [place], [address]. tel:[phone] Family History Family Member Type Diagnosis Age At Onset No Information Payers Payer name Insurance type Covered republican ID Authorchada tirama(s) Medical Assistance [facility] [id number] Social History Type Description Quantity Date Captured [...]
== END 2024-09-04 15:53 | disposition home or self-care (01) ==
LOC: HO.HOP 15:07
PROVIDERS: PCP Internal Medicine; Visit Provider Clinical Nurse Specialist Psychiatric/Mental Health
DX: F33.0 Major depressive disorder, recurrent, mild (principal); F43.21 Adjustment disorder with depressed mood; F41.1 Generalized anxiety disorder
CPT/HCPCS: 90833; 99214

== ENCOUNTER → 2024-09-04 15:07 | Outpatient (BNVA) | payer OTHER, SELFPAY | PROVIDERS: PCP Internal Medicine; Visit Provider Clinical Nurse Specialist Psychiatric/Mental Health | DX: F33.0 Major depressive disorder, recurrent, mild (principal); F43.21 Adjustment disorder with depressed mood; F41.1 Generalized anxiety disorder; Z71.89 Other specified counseling | CPT/HCPCS: 99212 ==

== ENCOUNTER 2024-09-14 14:57 | Outpatient (AMB) | payer OTHER, SELFPAY ==
--- OUTSIDE RECORDS SUMMARY | 2024-09-14 15:00 | XMS_ITS | Continuity of Care Document ---
Author Organization [facility] Address [address] [place] [address] Phone Care Team Providers Care Client Support Associate Name Role Phone Edward RIVAS FACS RVT [...] Providers Copied on Encounter [facility], [address] [place] [address] Dr [address]Mary [place], [id number], [place] tel:[phone] [facility] - [facility] No Information 3 Edward Gardiner. [address] [facility], [address], [place], [address], [place]. tel:[phone] Referring Provider: Vishal Brock MD, [address], [place], [address]. tel:[phone] [facility], [address] [place] [address] Dr [address]Mary [place], [id number], [place] tel:[phone] [facility] - [facility] Encounter for follow-up examination after completed treatment for conditions other than malignant neoplasmPain in left leg 3 Edward Gardiner. [address] [facility], [address], [place], [address], [place]. tel:[phone] Referring Provider: Vishal Brock MD, [address], [place], [address]. tel:[phone] Office/Outpt E&M Established 15 Mins [facility], [address] [place] [address] Dr [address]Suite Mary Alvarez MD, [id number], [place] tel:[phone] [facility] (idiopathic) with other complications of left lower extremity 3 Edward Gardiner. [address] [facility] [address], [address], [place], [address], [place]. tel:[phone] Referring Provider: Vishal Brock MD, [address], [place], [address]. tel:[phone] Office/Outpt E&M Established 15 Mins [facility], [address] [place] [address] Dr [address] 1000Mary [place], [id number], [place] tel:[phone] [facility]tn w oth comp of bilateral low extrm 3 Edward RIVAS FACS RVT CARRIE Gardiner. [address], [address], [place], [address], [place]. tel:[phone] Referring Provider: Vishal Brock MD, [address], [place], [address]. tel:[phone] [facility], [address] [place] [address] Dr [address]Mary [place], [id number], [place] tel:[phone] CVR - [place] [facility] [place] No Information 3 Edward RIVAS FACS RVT CARRIE Gardiner. [address] [facility], [address], [place], [address], [place]. [phone] Referring Provider: Vishal Brock MD, [address], [place], [address]. tel:[phone] [facility], [address] [place] [address] Dr [address] 1000Mary [place], [id number], [place] tel:[phone] CVR - [place] [facility] [place] Encntr for f/u exam aft trtmt for cond oth than malig neoplmVenous insufficiency (chronic) (peripheral) 3 Edward RIVAS FACS RVT CARRIE Gardiner. [address] [facility] [address], [address], [place], [address], [place]. [phone] Referring Provider: Vishal Brock MD, [address], [place], [address]. tel:[phone] [facility], [address] [place] [address] [address]Mary [place], [id number], [place] tel:[phone] [facility] - [place] [facility] [place] Venous insufficiency (chronic) (peripheral) 3 Edward RIVAS FACS RVT CARRIE Gardiner. [address] [facility], [address], [place], [address], [place]. tel:[phone] Referring Provider: Vishal Brock MD, [address], [place], [address]. tel:[phone] [facility], [address] [place] [address] [address] 1000Mary [place], [id number], [place] tel:[phone] [facility] - [place] [facility] [place] Venous insufficiency (chronic) (peripheral) 3 Edward RIVAS FACS T CARRIE Gardiner. [address] [facility] [address], [address], [place], [address], [place]. [phone] Referring Provider: Vishal Brock MD, [address], [place], [address]. 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 [address] [facility], [address], [place], [place], [id number] , [place]. [phone] Referring Provider: Vishal Brock MD, [address], [place], [address]. tel:[phone] [facility], [address] [place] [address] [address]Mary [place], [id number], [place] tel:[phone] [facility] - [place] [facility] [place] Encntr for f/u exam aft trtmt for cond oth than malig neoplmVenous insufficiency (chronic) (peripheral) 3 Edward RIVAS FACS T CARRIE Gardiner. [address] [facility] [address], [address], [place], [address], [place]. [phone] Referring Provider: Vishal Brock MD, [address], [place], [address]. tel:[phone] [facility], [address] [place] [address] Dr [address]Suite 1000Mary [place], [id number], [place] tel:[phone] CV[facility] - [place] Venous insufficiency (chronic) (peripheral) 3 Edward RIVAS FACS T CARRIE Gardiner. [address] [facility], [facility] [address], [place], [address], [place]. tel:[phone] Referring Provider: Vishal Brock MD, [address] [place] [address] Dr [address], [place], [address]. tel:[phone] [facility], [address], [place], [id number], [place] tel:[phone] [facility] - [facility] Venous insufficiency (chronic) (peripheral) 3 Edward RIVAS FACS T CARRIE Gardiner. [address] [facility], [address], [place], [address], [place]. tel:[phone] Referring Provider: Vishal Brock MD, [address] [place] [address] Dr [address], [place], [address]. tel:[phone] Family History Family Member Type Diagnosis Age At Onset No Information Payers Payer name Insurance type Covered libertarian ID Authorchada tirama(s) Medical Assistance [facility] [id number] Social History Type Description Quantity Date Captured [...]
[2024-09-14 15:01] VITALS: BP 110/57; PULSE 82; BMI 32.2
--- NOTE | 2024-09-14 15:01 | A.OFFVIS_ITS ---
Vital Signs 09/14/24 15:01 Height 5 ft 6 in Weight 199 lb 4.766 oz BMI 32.2 BP 110/57 L Blood Pressure Location Lt brachial Position Sitting Pulse 82 Intake Visit Reasons: s/p colonoscopy Intake Note: Carla Perez returns to in office follow up s/p colonoscopy. CC: Patient states that some foods bother her stomach and some don't. Per patient when she lays down and goes to get up she gets a sharp pain from her left mid back. Per patient her feces' color is very light compared to how it used to be. Brush Painter Required: No Accompanied by: Self / Same As Patient Allergies morphine Adverse Reaction (Unknown, Verified 09/14/24 15:08) withdrawals/sweats HPI HPI s/p colonoscopy: Details: Assessment & Plan (1) Pre-op examination: Code(s): Z01.818 - Encounter for other preprocedural examination (2) Epigastric pain: Code(s): R10.13 - Epigastric pain Plan: About 2 weeks ago she started having more dyspepsia epigastric pain along with intermittent diarrhea. 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 However, she also admits that she has not been consistent in taking her sucralfate or her dicyclomine even though she finds these quite helpful when she does have troubles. She has had no fevers or chills, she has had mild cramping in the lower abdomen and some nausea and poor appetite but no vomiting. She has had very small red blood on the toilet tissue at times with the diarrhea. I go over the possibilities of doing stool testing and also a possible gastric emptying study since she has had nausea on off in the past that has not been explained well by her upper endoscopies. However she really does not want to do either of these options. 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 Her last EGD was in 2020 and again did not give us any convincing reason for nausea. For now we will simply continue were on her dicyclomine and Carafate and I try to encourage her to be more consistent in the usage of her medications. Return office visit in 6 months and after her procedures. (3) History of gastrointestinal stromal tumor (GIST): Comment: no sign of recurrence on EGD performed 01/2019 despite biopsy of several gastric polyps Code(s): Z85.09 - Personal history of malignant neoplasm of other digestive organs (4) Tubular adenoma of colon: Comment: 2019 last 2 TA Code(s): D12.6 - Benign neoplasm of colon, unspecified (5) IBS (irritable bowel syndrome): Code(s): K58.9 - Irritable bowel syndrome without diarrhea Qualifiers: Irritable bowel syndrome type: unspecified Qualified Code(s): K58.9 - Irritable bowel syndrome without diarrhea (6) GERD (gastroesophageal reflux disease): Code(s): K21.9 - Gastro-esophageal reflux disease without esophagitis Qualifiers: Esophagitis presence: without esophagitis Qualified Code(s): K21.9 - Gastro-esophageal reflux disease without esophagitis (7) Abdominal bloating: Code(s): R14.0 - Abdominal distension (gaseous) Orders: Orders EGD/[place] [facility] - GI Use Only Today D12.6 - Benign neoplasm of colon, unspecified, Z85.09 - Personal history of malignant neoplasm of other digestive organs Medications: New dicyclomine 10 mg PO QID 120 caps 6RF K58.9 - Irritable bowel syndrome without diarrhea sucralfate (Carafate) 1 g PO BID 60 tabs 6RF K58.9 - Irritable bowel syndrome without diarrhea, Z85.09 - Personal history of malignant neoplasm of other digestive organs peg 3350-electrolytes 236-22.74-6.74 -5.86 gram (Golytely) until fecal effluent is clear; do not exceed a total volume of 2,000 mL 240 mL PO Q10M 1 day 4,000 mL 0RF Z12.11 - Encounter for screening for malignant neoplasm of colon Refilled lansoprazole 30 mg PO DAILY 30 caps 6RF K21.9 - Gastro-esophageal reflux disease without esophagitis, R10.13 - Epigastric pain, Z85.09 - Personal history of malignant neoplasm of other digestive organs EGD/COLONOSCOPY 03/17/24 Findings: Larynx: Normal Esophagus: GE junction at 34 cms, small hiatal hernia 34 to 36 cms. A 1 cm tongue of possible [place]'s which was biopsied. No esophagitis noted. Stomach: Multiple 5-15 mm benign-appearing polyps in the gastric body and fundus - biopsied. Mild gastric erythema. Biopsies were obtained. Grade 3 flap valve on retroflexed examination of the cardia. Duodenum: Normal bulb and descending duodenum. Biopsies were obtained from 3rd part of the duodenum to check for celiac sprue. Stomach: Multiple 1-2 cms benign appearing polyps in the gastric fundus - biopsied. Moderate diffuse gastric erythema - biopsies were obtained from the antrum. Grade 2 flap valve on retroflexed examination of the cardia. Duodenum: Normal bulb and descending duodenum Biopsies were obtained from descending duodenum to check for celiac sprue Findings: Terminal Ileum: Not evaluated Cecum: Normal Ascending Colon: Normal Transverse Colon: Normal Descending Colon: Moderate diverticulosis Sigmoid Colon: Moderate diverticulosis Rectum: Normal Ano-rectum: Small internal hemorrhoids Impression and Post Procedure Diagnosis: Endoscopy Findings: ESOPHAGUS: Small hiatal hernia 34 to 36 cms. A 1 cm tongue of possible [place]'s which was biopsied. No esophagitis noted. STOMACH: Multiple 5-15 mm benign-appearing polyps in the gastric body and fundus - biopsied. Mild gastric erythema. Biopsies were obtained. Grade 3 flap valve on retroflexed examination of the cardia. DUODENUM: Normal- biopsied to check for celiac sprue Colonoscopy Findings: No polyps were detected Random biopsies were obtained from the colon to check for microscopic colitis. Moderate diverticulosis seen in the left colon Small hemorrhoids on retroflexed exam. Plan: Pt to schedule a FU appointment with Kimberly Will NP. Repeat Colonoscopy in 5 years due to a hx of adenomatous colon polyps. Above findings were reviewed with the patient and relevant handouts were given and the discharge area. BIOPSIES SHOWED: A. Small bowel, biopsy: Small intestinal mucosa within normal limits; negative for celiac disease. B. Stomach, antrum, biopsy: Antral-type mucosa with mild chronic inactive inflammation and intestinal metaplasia; negative for dysplasia; no Helicobacter organisms seen. C. Stomach, polyp, biopsy: Fundic gland polyp with background mild chronic inactive inflammation; no Helicobacter organisms seen. D. Colon, left, biopsy: Colonic mucosa within normal limits; negative for microscopic colitis. TODAYS VISIT She recently lost her son to an MVA involving a drunk after school driver and is quite sad, understandably. She is agreeable to a 5 year follow-up given her history of TA is. The procedure was well tolerated. The results were explained and the patient is agreeable to the follow-up interval as stated. The bowel pattern has returned to normal. Education was provided to tell any 1st degree relatives about their findings to be sure that they are screened by age 45. Educated that they will be put on a recall list when it is time for their repeat scope but should they move out of state or away from the hospital they will need to remember along with their primary to repeat the procedure in a timely fashion to avoid any adverse complications. She continues were on her dicyclomine and Carafate as needed depending on how her stomach is acting. It has been acting up quite a bit since she is going through this very emotional time which is understandable. She is having a pain in her left mid/flank that is when she is arising form bed - PE palpates a VERY VERY tight paraspinous muscle that replicates the pain. I order and XR T and L spine. ROV 8 weeks, she already has flexeril. [facility] Medical History (Updated 09/14/24 @ 15:53 by SURY Muro) History of gastrointestinal stromal tumor (GIST) Wheezing Left foot pain Situational depression Tinea Left shoulder pain Family history of breast cancer Low back pain Paresthesia of left upper extremity Potential exposure to STD Epigastric pain Abdominal bloating At high risk for breast cancer Elbow injury Chest pain Calf pain Annual physical exam Umbilical pain Right knee pain Mild anemia Sinus pressure Cough Left ankle pain Problematic vaginal discharge Pain of left great toe Status post fall Pre-op examination Major depressive disorder, recurrent, mild Hot flashes Venous insufficiency of both lower extremities Pure hypercholesterolemia SVT (supraventricular tachycardia) Cardiac arrhythmia Hx of esophageal ulcer Benign essential hypertension Vitamin D deficiency Bipolar disorder Alcoholism Obesity (BMI 30-39.9) Anxiety Bipolar 1 disorder Depression Surgical History History of breast augmentation Hx of nasal septoplasty History of incisional hernia repair Hx of colonoscopy Hx of section Hx of gastrostomy (~04/2002) Hx of endoscopy Family History Father Esophagus cancer, Onset Age: 63 Mother Breast cancer, Onset Age: 46 Maternal Grandfather Cancer Paternal Aunt Breast cancer Maternal Aunt Breast cancer Social History Household Members: None Housing: House Alcohol intake: current Alcohol intake frequency: holidays/special occasions only Patient Tobacco Use Status: Current everyday Tobacco user Cigarettes Per Day: 5 Years Smoked: rarely- occasional smoker e-Cigarette/Vaping Use: Never Used Second Hand Smoke Exposure: Yes service: No Current occupational status: employed Cognitive needs: No Hearing needs: No Vision needs: Yes Female Reproductive History Menstrual Age of Menarche: 14 Review of Systems Const Denies fatigue, Denies fever(s), Denies night sweats, Reports poor appetite and Denies weight loss Eyes Details: glasses Reports requires corrective lenses ENT Reports Normal hearing present, Denies dental pain, Denies dysphagia, Denies hearing loss, Denies mouth pain, Denies odynophagia, Denies throat swelling, Denies tongue swelling and Reports other (Dentition adequate) Card Reports no additional complaints Resp Reports no additional complaints GI Details: Denies abdominal pain, Denies melena, Denies bloating, Denies hematochezia, Denies constipation, Denies GI cramping, Denies dysphagia, Denies excessive flatus, Denies early satiety, Reports dyspepsia, Denies heartburn, Reports diarrhea, Denies nausea, Denies odynophagia, Denies vomiting and Denies hematemesis Reports flank pain Musc Reports back pain Skin/Breast Denies pruritus, Denies lesions, Denies rash and Denies jaundice Neuro Reports Normal hearing present and Denies Abnormal speech present Psych Reports depression, Reports anhedonia, Denies homicidal ideation and Denies suicidal ideation Endo Denies fatigue Aller/Immun Denies throat swelling and Denies tongue swelling Physical Exam Vital Signs: Last Vital Signs Pulse 82 09/14/24 15:01 BP 110/57 L 09/14/24 15:01 BMI result Body Mass Index 32.2 Const General: cooperative, no acute distress, well developed, tired appearing and well groomed Nutritional Appearance: well nourished and obese Orientation/consciousness: oriented to person, oriented to place and oriented to time Limitations: No language barrier HEENT Head: Yes normocephalic and Yes atraumatic Eyes General: appearance normal, both eyes and all related structures Pupils: Equal, round and reactive pupils present Neck Neck: Yes normal visual inspection and Yes no lymphadenopathy Thyroid: Thyroid normal Chest Chest palpation & inspection: normal inspection of the chest and no localized rib tenderness Resp Effort & Inspection: normal respiratory effort and able to speak in complete sentences Auscultation: clear to auscultation bilaterally Cardio Rate: regular rate Rhythm: regular rhythm Heart sounds: Normal, physiologic split S2 sound present Peripheral pulses: radial pulses present and posterior tibial pulses present GI Inspection: No distended, Yes Abdominal panniculus present and Yes obesity Palpation (GI): Soft to palpation, nontender, no guarding, not rigid and No hepatosplenomegaly present Percussion: Yes normal to percussion Auscultation: normal bowel sounds Rectal Exam - Female: deferred Back/Spine/Pelvis Thoracic/Lumbar Spine: thoraco-lumbar ROM normal, paraspinal muscle tenderness on the left in the lower thoracic and in the upper thoracic, No thoracic spinal tenderness and other (Some loss of lumbar lordosis) Skin General skin exam: no rashes or lesions noted, turgor normal, skin not dry, no jaundice, No spider nevi and no striae Rashes: no rashes Nails: normal Neuro General: oriented to person, oriented to place and oriented to time Cranial nerves: Yes Equal, round and reactive pupils present and Yes Normal hearing present Speech: No Abnormal speech present Motor exam (neuro): 5/5 motor strength present throughout Deep tendon reflexes (DTR's): Right patellar reflex intensity grade: 2+, Left patellar reflex intensity grade: 2+, Right ankle reflex intensity grade: 2+ and Left ankle reflex intensity grade: 2+ Extrem General: Yes normal to inspection, No clubbing, No cyanosis and No edema Psych Appearance: grossly normal and well kempt Mental Status: mental status grossly normal Speech and movement: Normal speech and movement present Affect: Labile affect present, Sad affect present and Depressed mood present Attitude: cooperative Thought process: Normal thought process present and not confabulating Thought content: Normal thought content present Insight: Fair insight present (Psych) Judgement: Fair judgement present (Psych) Results Reviewed Results Reviewed: EGD/COLONOSCOPY 03/17/24 Findings: Larynx: Normal Esophagus: GE junction at 34 cms, small hiatal hernia 34 to 36 cms. A 1 cm tongue of possible [place]'s which was biopsied. No esophagitis noted. Stomach: Multiple 5-15 mm benign-appearing polyps in the gastric body and fundus - biopsied. Mild gastric erythema. Biopsies were obtained. Grade 3 flap valve on retroflexed examination of the cardia. Duodenum: Normal bulb and descending duodenum. Biopsies were obtained from 3rd part of the duodenum to check for celiac sprue. Stomach: Multiple 1-2 cms benign appearing polyps in the gastric fundus - biopsied. Moderate diffuse gastric erythema - biopsies were obtained from the antrum. Grade 2 flap valve on retroflexed examination of the cardia. Duodenum: Normal bulb and descending duodenum Biopsies were obtained from descending duodenum to check for celiac sprue Findings: Terminal Ileum: Not evaluated Cecum: Normal Ascending Colon: Normal Transverse Colon: Normal Descending Colon: Moderate diverticulosis Sigmoid Colon: Moderate diverticulosis Rectum: Normal Ano-rectum: Small internal hemorrhoids Impression and Post Procedure Diagnosis: Endoscopy Findings: ESOPHAGUS: Small hiatal hernia 34 to 36 cms. A 1 cm tongue of possible [place]'s which was biopsied. No esophagitis noted. STOMACH: Multiple 5-15 mm benign-appearing polyps in the gastric body and fundus - biopsied. Mild gastric erythema. Biopsies were obtained. Grade 3 flap valve on retroflexed examination of the cardia. DUODENUM: Normal- biopsied to check for celiac sprue Colonoscopy Findings: No polyps were detected Random biopsies were obtained from the colon to check for microscopic colitis. Moderate diverticulosis seen in the left colon Small hemorrhoids on retroflexed exam. Plan: Pt to schedule a FU appointment with Kimberly Will NP. Repeat Colonoscopy in 5 years due to a hx of adenomatous colon polyps. Above findings were reviewed with the patient and relevant handouts were given and the discharge area. BIOPSIES SHOWED: A. Small bowel, biopsy: Small intestinal mucosa within normal limits; negative for celiac disease. B. Stomach, antrum, biopsy: Antral-type mucosa with mild chronic inactive inflam mation and intestinal metaplasia; negative for dysplasia; no Helicobacter organisms seen. C. Stomach, polyp, biopsy: Fundic gland polyp with background mild chronic inactive inflammation; no Helicobacter organisms seen. D. Colon, left, biopsy: Colonic mucosa within normal limits; negative for microscopic colitis. Assessment & Plan Assessment & Plan (1) Tubular adenoma of colon: Comment: 03/2024= negative study repeat in 5 years 2019 last 2 TA Code(s): D12.6 - Benign neoplasm of colon, unspecified Category: Medical (2) IBS (irritable bowel syndrome): Code(s): K58.9 - Irritable bowel syndrome, unspecified Category: Medical Qualifiers: Irritable bowel syndrome type: unspecified Qualified Code(s): K58.9 - Irritable bowel syndrome without diarrhea (3) GERD (gastroesophageal reflux disease): Code(s): K21.9 - Gastro-esophageal reflux disease without esophagitis Category: Medical Qualifiers: Esophagitis presence: without esophagitis Qualified Code(s): K21.9 - Gastro-esophageal reflux disease without esophagitis (4) Back pain: Code(s): M54.9 - Dorsalgia, unspecified Category: Medical (5) Thoracic spondylosis: Comment: 2013 thoracic spine xray shows spondylosis and multilevel osteophytes so consider repeat study and possible MRI of spine for her continued pain not r/t eating or bowel movement. Code(s): M47.814 - Spondylosis without myelopathy or radiculopathy, thoracic region Category: Medical Plan She recently lost her son to an MVA involving a drunk after school driver and is quite sad, understandably. She is agreeable to a 5 year follow-up given her history of TA is. The procedure was well tolerated. The results were explained and the patient is agreeable to the follow-up interval as stated. The bowel pattern has returned to normal. Education was provided to tell any 1st degree relatives about their findings to be sure that they are screened by age 45. Educated that they will be put on a recall list when it is time for their repeat scope but should they move out of state or away from the hospital they will need to remember along with their primary to repeat the procedure in a timely fashion to avoid any adverse complications. She continues were on her dicyclomine and Carafate as needed depending on how her stomach is acting. It has been acting up quite a bit since she is going through this very emotional time which is understandable. She is having a pain in her left mid/flank that is when she is arising form bed - PE palpates a VERY VERY tight paraspinous muscle that replicates the pain. I order and XR T and L spine. Depending on the results she can consider something such as physical therapy or an MRI and this can also be coordinated with her primary care provider Dr. Brock. She does have a history of significant bony spurring on a past remote x-ray of her thoracic spine. She also has known herniated discs and cervical degenerative disc disease. ROV 8 weeks, she already has flexeril. Orders: Orders XR lumbar spine 2-3V Today K58.9 - Irritable bowel syndrome, unspecified, M54.9 - Dorsalgia, unspecified XR thoracic spine 2V Today K58.9 - Irritable bowel syndrome, unspecified, M54.9 - Dorsalgia, unspecified Coding Level of Care Code Est Pt Level 4 (54757) Diagnoses Tubular adenoma of colon D12.6 Irritable bowel syndrome, unspecified type K58.9 Irritable bowel syndrome type: unspecified Gastroesophageal reflux disease without esophagitis K21.9 Esophagitis presence: without esophagitis Back pain M54.9 Thoracic spondylosis M47.814 Time Spent (min) 37
== END 2024-09-14 15:59 | disposition home or self-care (01) ==
PROVIDERS: PCP Internal Medicine; Visit Provider Nurse Practitioner
DX: D12.6 Benign neoplasm of colon, unspecified (principal); K58.9 Irritable bowel syndrome, unspecified; K21.9 Gastro-esophageal reflux disease without esophagitis; M54.9 Dorsalgia, unspecified; M47.814 Spondylosis without myelopathy or radiculopathy, thoracic region
CPT/HCPCS: 99214

== ENCOUNTER 2024-09-14 14:57 | Outpatient (REF) | payer OTHER, SELFPAY ==
--- NOTE | ~2024-09-14 | XR_ITS ---
EXAMINATION: Dorsal spine series. Lumbosacral spine series. CLINICAL INFORMATION: Dorsalgia. Pain in the back. Pain in the back COMPARISON: Lumbosacral spine series August 2019 TECHNIQUE: 3 views of the lumbar sacral spine and 3 views of the dorsal spine FINDINGS: Lumbosacral spine: Vertebral body height and alignment normal. Mild degenerative disc changes at L2-L3 and L3-L4 and L4-L5 manifested by small endplate osteophytes. No definite disc space narrowing. Surrounding bone and soft tissues are unremarkable. XR/XR lumbar spine 2-3V IMPRESSION: 1. No acute abnormality. 2. Mild spondylosis of the lumbosacral spine slightly progressed compared to prior. Electronically signed by: Pato Baez MD 09/16/2024 02:52 PM MARÍA
--- NOTE | ~2024-09-14 | XR_ITS ---
EXAMINATION: Dorsal spine series. Lumbosacral spine series. CLINICAL INFORMATION: Dorsalgia. Pain in the back. Pain in the back COMPARISON: Lumbosacral spine series August 2019 TECHNIQUE: 3 views of the lumbar sacral spine and 3 views of the dorsal spine FINDINGS: Lumbosacral spine: Vertebral body height and alignment normal. Mild degenerative disc changes at L2-L3 and L3-L4 and L4-L5 manifested by small endplate osteophytes. No definite disc space narrowing. Surrounding bone and soft tissues are unremarkable. XR/XR thoracic spine 2V IMPRESSION: 1. No acute abnormality. 2. Mild spondylosis of the lumbosacral spine slightly progressed compared to prior. Electronically signed by: Pato Baez MD 09/16/2024 02:52 PM [facility] ALVARADO
--- OUTSIDE RECORDS SUMMARY | 2024-09-14 16:10 | XMS_ITS | Continuity of Care Document ---
Author Organization [facility] Address [address] [place] [address] Phone Care Team Providers Care Applications Administrator Name Role Phone Edward RIVAS FACS RVT [...] Providers Copied on Encounter [facility], [address] [place] [address] Dr [address]Mary [place], [id number], [place] tel:[phone] [facility] No Information 3 Edward Gardiner. [address], [address], [place], [address], [place]. tel:[phone] Referring Provider: Vishal Brock MD, [address], [place], [address]. tel:[phone] [facility], [address] [place] [address] Dr [address]Mary [place], [id number], [place] tel:[phone] [facility] Encounter for follow-up examination after completed treatment for conditions other than malignant neoplasmPain in left leg 3 Edward Gardiner. [address], [address], [place], [address], [place]. tel:[phone] Referring Provider: Vishal Brock MD, [address], [place], [address]. tel:[phone] Office/Outpt E&M Established 15 Mins [facility], [address] [place] [address] Dr [address]Suite Mary Alvarez MD, [id number], [place] tel:[phone] [facility] (idiopathic) with other complications of left lower extremity 3 Edward Gardiner. [address], [address], [place], [address], [place]. tel:[phone] Referring Provider: Vishal Brock MD, [address], [place], [address]. tel:[phone] Office/Outpt E&M Established 15 Mins [facility], [address] [place] [address] Dr [address]Mary [place], [id number], [place] tel:[phone] [facility] venous htn w oth comp of bilateral low extrm 3 Edward RIVAS FACS RVT CARRIE Gardiner. [address], [address], [place], [address], [place]. tel:[phone] Referring Provider: Vishal Brock MD, [address], [place], [address]. tel:[phone] [facility], [address] [place] [address] Dr [address]Mary [place], [id number], [place] tel:[phone] [facility] - [place] [facility] No Information 3 Edward RIVAS FACS RVT CARRIE Gardiner. [address], [address], [place], [address], [place]. [phone] Referring Provider: Vishal Brock MD, [address], [place], [address]. tel:[phone] [facility], [address] [place] [address] Dr [address]Mary [place], [id number], [place] tel:[phone] [facility] [place] [facility] Encntr for f/u exam aft trtmt for cond oth than malig neoplmVenous insufficiency (chronic) (peripheral) 3 Edward RIVAS FACS RVT CARRIE Gardiner. [address], [address], [place], [address], [place]. [phone] Referring Provider: Vishal Brock MD, [address], [place], [address]. tel:[phone] [facility], [address] [place] [address] [address]Mary [place], [id number], [place] tel:[phone] [facility] [place] [facility] [place] Venous insufficiency (chronic) (peripheral) 3 Edward RIVAS FACS RVT CARRIE Gardiner. [address], [address], [place], [address], [place]. tel:[phone] Referring Provider: Vishal Brock MD, [address], [place], [address]. tel:[phone] [facility], [address] [place] [address] [address]Mary [place], [id number], [place] tel:[phone] [facility] [place] [facility] [place] Venous insufficiency (chronic) (peripheral) 3 Edward RIVAS FACS T CARRIE Gardiner. [address], [address], [place], [address], [place]. [phone] Referring Provider: Vishal Brock MD, [address], [place], [address]. 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 [address], [address], [place], [place], [id number] , [place]. [phone] Referring Provider: Vishal Brock MD, [address], [place], [address]. tel:[phone] [facility], [address] [place] [address] [address]Mary [place], [id number], [place] tel:[phone] [facility] [place] [facility] [place] Encntr for f/u exam aft trtmt for cond oth than malig neoplmVenous insufficiency (chronic) (peripheral) 3 Edward RIVAS FACS T CARRIE Gardiner. [address], [address], [place], [address], [place]. [phone] Referring Provider: Vishal Brock MD, [address], [place], [address]. tel:[phone] [facility], [address] [place] [address] [address]Mary [place], [id number], [place] tel:[phone] [facility] [place] [facility] [place] Venous insufficiency (chronic) (peripheral) 3 Edward RIVSA FACS T CARRIE Gardiner. [address], [facility] [address], [place], [address], [place]. tel:[phone] Referring Provider: Vishal Brock MD, [address] [place] [address] Dr [address], [place], [address]. tel:[phone] [facility], [address], [place], [id number], [place] tel:[phone] [facility] Venous insufficiency (chronic) (peripheral) 3 Edward RIVAS FACS T CARRIE Gardiner. [address], [address], [place], [address], [place]. tel:[phone] Referring Provider: Vishal Brock MD, [address] [place] [address] Dr [address], [place], [address]. tel:[phone] Family History Family Member Type Diagnosis Age At Onset No Information Payers Payer name Insurance type Covered alliance party ID Authorchada tirama(s) Medical Assistance [facility] [id number] Social History Type Description Quantity Date Captured [...]
== END 2024-09-14 14:58 | disposition home or self-care (01) ==
LOC: HO.XRAY 14:57
PROVIDERS: PCP Internal Medicine; Visit Provider Nurse Practitioner
DX: M54.9 Dorsalgia, unspecified (principal); K58.9 Irritable bowel syndrome, unspecified; M47.814 Spondylosis without myelopathy or radiculopathy, thoracic region; K21.9 Gastro-esophageal reflux disease without esophagitis; D12.6 Benign neoplasm of colon, unspecified
CPT/HCPCS: 72070; 72100; 99212

== ENCOUNTER → 2024-10-01 13:59 | Outpatient (REF) | payer OTHER, SELFPAY ==
--- NOTE | 2024-10-01 15:11 | ECG_ITS ---
Test Reason : svt Blood Pressure : / mmHG Vent. Rate : 073 BPM Atrial Rate : 073 BPM P-R Int : 154 ms QRS Dur : 072 ms QT Int : 406 ms P-R-T Axes : 056 024 046 degrees QTc Int : 447 ms Normal sinus rhythm Low voltage QRS Borderline ECG When compared with ECG of 01-MAR-2024 08:41, Vent. rate has decreased BY 52 BPM Referred By: Betty Kumar Electronically Signed By:BEST PEREZ MD
== END ==
LOC: HO.CARD 13:59
PROVIDERS: PCP Internal Medicine; Visit Provider Clinical Nurse Specialist Psychiatric/Mental Health
DX: I47.10 Supraventricular tachycardia, unspecified (principal)
CPT/HCPCS: 93005

== ENCOUNTER → 2024-10-01 15:11 | Outpatient (BNV) | payer OTHER, SELFPAY | PROVIDERS: PCP Internal Medicine; Visit Provider Internal Medicine Cardiovascular Disease | DX: I47.10 Supraventricular tachycardia, unspecified (principal) | CPT/HCPCS: 93010 ==

== ENCOUNTER 2024-11-20 09:10 | Outpatient (AMB) | payer OTHER, SELFPAY ==
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
[2024-11-20 09:20] VITALS: BP 112/72; BMI 32.3
--- OUTSIDE RECORDS SUMMARY | 2024-11-20 09:48 | XMS_ITS | Clinical Summary ---
Author Organization [facility] Address [address] [place] [address] Phone Care Team Providers Care Trapper Bird Name Role Phone Vishal Brock MD Primary Care Provider Allergies No known active allergies Medications cholecalciferol (VITAMIN D-3) 25 mcg (1,000 unit) tablet Take 1,000 Units by mouth daily. Active ferrous sulfate 325 mg (65 mg iron) EC tablet Take 1 Tab by mouth daily (with breakfast). 8 Active furosemide (LASIX) 20 mg tablet Take 1 Tab by mouth daily. 8 Active metoprolol succinate (TOPROL-XL) 25 mg 24 hr tablet Take 1 Tab by mouth daily. 8 Active LORazepam (ATIVAN) 1 mg tablet Take 1 mg by mouth daily as needed. Active magnesium oxide 500 mg magnesium tablet Take 1 Tab by mouth 2 times daily. 8 Active omeprazole (PRILOSEC) 20 mg tablet,delayed release (DR/EC) Take 1 Tab by mouth 2 times daily. 8 Active diclofenac (Voltaren Arthritis Pain) 1 % topical gel Apply 4 g topically 2 (two) times a day. 240 g 1 5 12/08/19 25 Active Active Problems Problem Noted Date Diagnosed Date Alcohol withdrawal 05/16/2018 Overview (08/22/2024): Admitted to hospital 05/2018 Venous insufficiency of both lower extremities 0 03/31/2018 Iron deficiency anemia 02/10/2018 Alcohol abuse 02/09/2018 Overview (08/22/2024): H/o AA and outpatient rehab Anxiety 02/09/2018 GERD (gastroesophageal reflux disease) 8 Hiatal hernia 02/09/2018 Insomnia 02/09/2018 Obesity (BMI 30-39.9) 02/09/2018 Encounters Date Type Department Care Team Description 10/12/2024 Telephone Orthopedic Surgery - [place] [address] [address] Moshe Underwood DPM 10/08/2024 3:30 PM EST Consult Orthopedic Surgery - [place] [address] [address] Moshe Underwood DPM Plantar fascial fibromatosis (Primary Dx); Hallux rigidus of left foot; Corns and callosities from Last 3 Months Social History Tobacco Use Types Packs/Day Years Used Date Smoking Tobacco: Never Assessed Comments Unknown Sex and Gender Information Value Date Recorded Sex Assigned at Not on file Legal Sex Female 12:12 AM EST Gender Identity Not on file Sexual Orientation Not on file Last Filed Vital Signs Vital Sign Reading Time Taken Comments Blood Pressure - - Pulse - - Temperature - - Respiratory Rate - - Oxygen Saturation - - Inhaled Oxygen Concentration - - Weight 90.3 kg (199 lb) 10/08/2024 4:02 PM EST Height 167.6 cm (5' 6 ) 10/08/2024 4:02 PM EST Body Mass Index 32.12 10/08/2024 4:02 PM EST Plan of Treatment Health Maintenance Due Date Last Done Comments Breast Cancer Screening 1970 DTaP,Tdap,and Td Vaccines (1 - Tdap) 1989 Hepatitis A Vaccines (1 of 2 - Risk 2-dose series) 1989 Hepatitis B Vaccines (1 of 3 - 19+ 3-dose series) 1989 Cervical Cancer Screening: P ap Smear 1991 Pneumococcal Vaccine: 50+ Years (1 of 1 - PCV) 2020 Zoster Vaccines (1 of 2) 2020 COVID-19 Vaccine (3 - 2023-2 5 season) 2024 05/26/2021, 05/05/2021 Influenza Vaccine (#1) 2024 Cholesterol Screening (Lipid Panel) 07/28/2024 Colorectal Cancer Screening: Colonoscopy 07/28/2024 Depression Screening 07/28/2024 HIV Screening 07/28/2024 Hepatitis C Screening 07/28/2024 Social Influencers of Health Screening 07/28/2024 HIB Vaccines Aged Out No longer eligi ble based on patient's age to complete this topic HPV Vaccines Aged Out No longer eligi ble based on patient's age to complete this topic IPV Vaccines Aged Out No longer eligi ble based on patient's age to complete this topic MMR Vaccines Aged Out No longer eligi ble based on patient's age to complete this topic Meningococcal ACWY Vaccine Aged Out N o longer eligible based on patient's age to complete this topic Meningococcal B Vacine Aged Out No lo nger eligible based on patient's age to complete this topic Pneumococcal Vaccine: Pediatrics (0 to 5 Years) and At-Risk Patients (6 to 64 Years) Aged Out No longer eligible b ased on patient's age to complete this topic RSV Immunization Patients Under 20 months Aged Out No longer eligible b ased on patient's age to complete this topic Varicella Vaccines Aged Out No longer eligible based on patient's age to complete this topic Insurance [facility] PUBLIC [employer] Care Teams Trapper Bird Relationship Specialty Start Date End Date Vishal Brock MD [address] [place] [address] Dr William Harkins [place] PCP - General 06/28/24
--- OUTSIDE RECORDS SUMMARY | 2024-11-20 09:49 | XMS_ITS | Continuity of Care Document ---
Author Organization [facility] Address [address] [place] [address] Phone Care Team Providers Care Learning And Development Intern Name Role Phone Edward RIVAS FACS RVT [...] Providers Copied on Encounter [facility], [address] [place] [address] Dr [address]Mary [place], [id number], [place] tel:[phone] [facility] No Information 3 Edward Gardiner. [address], [address], [place], [address], [place]. tel:[phone] Referring Provider: Vishal Brock MD, [address], [place], [address]. tel:[phone] [facility], [address] [place] [address] Dr [address]Mary [place], [id number], [place] tel:[phone] [facility] Encounter for follow-up examination after completed treatment for conditions other than malignant neoplasmPain in left leg 3 Edward Gardiner. [address], [address], [place], [address], [place]. tel:[phone] Referring Provider: Vishal Brock MD, [address], [place], [address]. tel:[phone] Office/Outpt E&M Established 15 Mins [facility], [address] [place] [address] Dr [address] Mary Alvarez [place], [id number], [place] tel:[phone] [facility] (idiopathic) with other complications of left lower extremity 3 Edward Gardiner. [address], [address], [place], [address], [place]. tel:[phone] Referring Provider: Vishal Brock MD, [address], [place], [address]. tel:[phone] Office/Outpt E&M Established 15 Mins [facility], [address] [place] [address] Dr [address]Mary [place], [id number], [place] tel:[phone] [facility] htn w oth comp of bilateral low extrm 3 Edward RIVAS FACS RVT CARRIE Gardiner. [address], [address], [place], [address], [place]. tel:[phone] Referring Provider: Vishal Brock MD, [address], [place], [address]. tel:[phone] [facility], [address] [place] [address] Dr [address]Mary [place], [id number], [place] tel:[phone] [facility] [place] [facility] [place] No Information 3 Edward RIVAS FACS RVT CARRIE Gardiner. [address], [address], [place], [address], [place]. [phone] Referring Provider: Vishal Brock MD, [address], [place], [address]. tel:[phone] [facility], [address] [place] [address] Dr [address]Mary [place], [id number], [place] tel:[phone] [facility] [place] [facility] [place] Encntr for f/u exam aft trtmt for cond oth than malig neoplmVenous insufficiency (chronic) (peripheral) 3 Edward RIVAS FACS RVT CARRIE Gardiner. [address], [address], [place], [address], [place]. [phone] Referring Provider: Vishal Brock MD, [address], [place], [address]. tel:[phone] [facility], [address] [place] [address] [address]Mary [place], [id number], [place] tel:[phone] [facility] [place] [facility] [place] Venous insufficiency (chronic) (peripheral) 3 Edward RIVAS FACS RVT CARRIE Gardiner. [address], [address], [place], [address], [place]. tel:[phone] Referring Provider: Vishal Brock MD, [address], [place], [address]. tel:[phone] [facility], [address] [place] [address] [address]Mary [place], [id number], [place] tel:[phone] [facility] [place] [facility] [place] Venous insufficiency (chronic) (peripheral) 3 Edward RIVAS FACS T CARRIE Gardiner. [address], [address], [facility] [place], [address], [place]. [phone] Referring Provider: Vishal Brock MD, [address], [place], [address]. 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 [address], [address], [place], [place], [id number] , [place]. [phone] Referring Provider: Vishal Brock MD, [address], [place], [address]. tel:[phone] [facility], [address] [place] [address] [address] 1000Mary [place], [id number], [place] tel:[phone] [facility] [place] [facility] [place] Encntr for f/u exam aft trtmt for cond oth than malig neoplmVenous insufficiency (chronic) (peripheral) 3 Edward RIVAS FACS T CARRIE Gardiner. [address], [address], [place], [address], [place]. [phone] Referring Provider: Vishal Brock MD, [address], [place], [address]. tel:[phone] [facility], [address] [place] [address] Dr Thomas [address] 1000Mary [place], [id number], [place] tel:[phone] [facility] [place] [facility] [place] Venous insufficiency (chronic) (peripheral) 3 Edward RIVAS FACS T CARRIE Gardiner. [address], [facility] [address], [place], [address], [place]. tel:[phone] Referring Provider: Vishal Brock MD, [address] [place] [address] Dr [address], [place], [address]. tel:[phone] [facility], [address], [place], [id number], [place] tel:[phone] [facility] Venous insufficiency (chronic) (peripheral) 3 Edward RIVAS FACS T CARRIE Gardiner. [address], [address], [place], [address], [place]. tel:[phone] Referring Provider: Vishal Brock MD, [address] [place] [address] Dr [address], [place], [address]. tel:[phone] Family History Family Member Type Diagnosis Age At Onset No Information Payers Payer name Insurance type Covered republican ID Authorchada tirama(s) Medical Assistance [facility] [id number] Social History Type Description Quantity Date Captured [...]
== END 2024-11-20 10:07 | disposition home or self-care (01) ==
PROVIDERS: PCP Internal Medicine; Visit Provider Advanced Practice Midwife
DX: Z01.419 Encounter for gynecological examination (general) (routine) without abnormal findings (principal); N92.1 Excessive and frequent menstruation with irregular cycle; N89.8 Other specified noninflammatory disorders of vagina; R10.2 Pelvic and perineal pain
CPT/HCPCS: 99213; 99396; 99459

== ENCOUNTER → 2024-11-20 09:10 | Outpatient (BNVA) | payer OTHER, SELFPAY | PROVIDERS: PCP Internal Medicine; Visit Provider Advanced Practice Midwife | DX: Z01.419 Encounter for gynecological examination (general) (routine) without abnormal findings (principal); N92.1 Excessive and frequent menstruation with irregular cycle; N89.8 Other specified noninflammatory disorders of vagina; R10.2 Pelvic and perineal pain; R23.2 Flushing | CPT/HCPCS: 99212; 99396; 99459 ==

== ENCOUNTER 2024-11-20 10:17 | Outpatient (REF) | payer OTHER, SELFPAY ==
--- OUTSIDE RECORDS SUMMARY | 2024-11-20 11:18 | XMS_ITS | Continuity of Care Document ---
Author Organization [facility] Address [address] [place] [address] Phone Care Team Providers Care Consumer Safety Officer Name Role Phone Edward RIVAS FACS RVT [...] Providers Copied on Encounter [facility], [address] [place] [address] Dr [address]Mary [place], [id number], [place] tel:[phone] [facility] - [facility] No Information 3 Edward Gardiner. [address], [address], [place], [address], [place]. tel:[phone] Referring Provider: Vishal Brock MD, [address], [place], [address]. tel:[phone] [facility], [address] [place] [address] Dr [address]Mary [place], [id number], [place] tel:[phone] [facility] - [facility] Encounter for follow-up examination after completed treatment for conditions other than malignant neoplasmPain in left leg 3 Edward Gardiner. [address], [address], [place], [address], [place]. tel:[phone] Referring Provider: Vishal Brock MD, [address], [place], [address]. tel:[phone] Office/Outpt E&M Established 15 Mins [facility], [address] [place] [address] Dr [address]Suite Mary Alvarez [place], [id number], [place] tel:[phone] [facility] hypertension (idiopathic) with other complications of left lower extremity 3 Edward Gardiner. [address], [address], [place], [address], [place]. tel:[phone] Referring Provider: Vishal Brock MD, [address], [place], [address]. tel:[phone] Office/Outpt E&M Established 15 Mins [facility], [address] [place] [address] Dr [address]Mary [place], [id number], [place] tel:[phone] [facility] venous htn w oth comp of bilateral low extrm 3 Edward RIVAS FACS RVT CARRIE Gardiner. [address], [address], [place], [address], [place]. tel:[phone] Referring Provider: Vishal Brock MD, [address], [place], [address]. tel:[phone] [place] [facility], [address] [place] [address] Dr [address] 1000Mary [place], [id number], [place] tel:[phone] [facility] - [place] [facility] No Information 3 Edward RIVAS FACS RVT CARRIE Gardiner. [address], [address], [facility] [place], [address], [place]. [phone] Referring Provider: Vishal Brock MD, [address], [place], [address]. tel:[phone] [facility], [address] [place] [address] Dr [address]Mary [place], [id number], [place] tel:[phone] [facility] - [place] [facility] Encntr for f/u exam aft trtmt for cond oth than malig neoplmVenous insufficiency (chronic) (peripheral) 3 Edward RIVAS FACS RVT CARRIE Gardiner. [address], [address], [place], [address], [place]. [phone] Referring Provider: Vishal Brock MD, [address], [place], [address]. tel:[phone] [facility], [address] [place] [address] [address]Mary [place], [id number], [place] tel:[phone] [facility] [place] [facility] Venous insufficiency (chronic) (peripheral) 3 Edward RIVAS FACS RVT CARRIE Gardiner. [address], [address], [place], [address], [place]. tel:[phone] Referring Provider: Vishal Brock MD, [address], [place], [address]. tel:[phone] [facility], [address] [place] [address] [address]Mary [place], [id number], [place] tel:[phone] [facility] - [place] [facility] Venous insufficiency (chronic) (peripheral) 3 Edward RIVAS FACS T CARRIE Gardiner. [address], [address], [facility] [place], [address], [place]. [phone] Referring Provider: Vishal Brock MD, [address], [place], [address]. 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 [address], [address], [place], [place], [id number] , [place]. [phone] Referring Provider: Vishal Brock MD, [address], [place], [address]. tel:[phone] [facility], [address] [place] [address] [address] 1000Mary [place], [id number], [place] tel:[phone] [facility] [place] [facility] Encntr for f/u exam aft trtmt for cond oth than malig neoplmVenous insufficiency (chronic) (peripheral) 3 Edward RIVAS FACS T CARRIE Gardiner. [address], [address], [place], [address], [place]. [phone] Referring Provider: Vishal Brock MD, [address], [place], [address]. tel:[phone] [facility], [address] [place] [address] Dr [address]Suite 1000Mary [place], [id number], [place] tel:[phone] [facility] - [place] [facility] [place] Venous insufficiency (chronic) (peripheral) 3 Edward RIVAS FACS T CARRIE Gardiner. [address], [facility] [address], [place], [address], [place]. tel:[phone] Referring Provider: Vishal Brock MD, [address] [place] [address] Dr [address], [place], [address]. tel:[phone] [facility], [address], [place], [id number], [place] tel:[phone] [facility] - [facility] Venous insufficiency (chronic) (peripheral) 3 Edward RIVAS FACS T CARRIE Gardiner. [address], [address], [place], [address], [place]. tel:[phone] Referring Provider: Vishal Brock MD, [address] [place] [address] Dr [address], [place], [address]. tel:[phone] Family History Family Member Type Diagnosis Age At Onset No Information Payers Payer name Insurance type Covered constitution party ID Authorchada tirama(s) Medical Assistance [facility] [id number] Social History Type Description Quantity Date Captured [...]
--- OUTSIDE RECORDS SUMMARY | 2024-11-20 11:18 | XMS_ITS | Clinical Summary ---
Author Organization [facility] Address [address] [place] [address] Phone Care Team Providers Care Candy Spreader Helper Name Role Phone Vishal Brock MD Primary Care Provider [phone] Allergies No known active allergies Medications cholecalciferol [...] Team Description 10/12/2024 Telephone Orthopedic Surgery - [place] [address] [address] Moshe Underwood DPM 10/08/2024 3:30 PM EST Consult Orthopedic Surgery - [place] [address] [address] Moshe Underwood DPM Plantar fascial [...] patient's age to complete this topic Insurance [facility] PUBLIC PLANS Care Teams Candy Spreader Helper Relationship Specialty Start Date End Date Vishal Brock MD [address] [place] [address] Dr William Harkins [place] PCP - General 06/28/24
[2024-11-20 11:23] LABS: Hematocrit 39.6 % (37.0-47.0); Hemoglobin 12.6 g/dl (12.0-16.0); Mean Corpuscular HGB Conc 31.8 g/dl (31.0-35.0); Mean Corpuscular Hemoglobin 28.1 pg (27.0-33.0); Mean Corpuscular Volume 88.2 fL (80.0-98.0); Mean Platelet Volume 10.3 fL (9.4-12.3); Platelet Count 385 X10*3/uL (160-400); Red Blood Count 4.49 X10*6/uL (4.20-5.50); Red Cell Distribution Width 13.5 % (11.0-16.0); White Blood Count 7.2 X10*3/uL (4.8-10.8)
[2024-11-20 12:27] LABS: Thyroid Stimulating Hormone 2.22 uIU/mL (0.32-4.0)
[2024-11-21 07:44] LABS: Follicle Stimulating Hormone 55.5 mIU/mL
== END 2024-11-20 10:18 | disposition home or self-care (01) ==
LOC: HO.LAB 10:17
PROVIDERS: PCP Internal Medicine; Visit Provider Advanced Practice Midwife
DX: R23.2 Flushing (principal); N92.1 Excessive and frequent menstruation with irregular cycle
CPT/HCPCS: 36415; 83001; 84443; 85027

== ENCOUNTER 2024-11-23 14:31 | Outpatient (AMB) | payer OTHER, SELFPAY ==
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
--- OUTSIDE RECORDS SUMMARY | 2024-11-23 14:51 | XMS_ITS | Clinical Summary ---
Author Organization 175 [facility] Address [address] [place] [address] Phone Care Team Providers Care Home Agent Name Role Phone Vishal Brock MD Primary [...] Team Description 10/12/2024 Telephone Orthopedic Surgery - [place] [address] [address] Moshe Underwood DPM 10/08/2024 3:30 PM EST Consult Orthopedic Surgery - [place] [address] [address] Moshe Underwood DPM Plantar fascial [...] patient's age to complete this topic Insurance [facility] PUBLIC [employer] Care Teams Home Agent Relationship Specialty Start Date End Date Vishal Brock MD [address] [place] [address] Dr William Harkins [place] PCP - General 06/28/24
--- OUTSIDE RECORDS SUMMARY | 2024-11-23 14:51 | XMS_ITS | Continuity of Care Document ---
Author Organization [facility] Address [address] [place] [address] Phone Care Team Providers Care Cost Manager Name Role Phone Edward RIVAS FACS [...] Providers Copied on Encounter [facility], [address] [place] [address] Dr [address] [place], [id number], [place] tel:[phone] [facility] - [facility] No Information 3 Edward Gardiner. [address], [address], [place], [address], [place]. tel:[phone] Referring Provider: Vishal Brock MD, [address], [place], [address]. tel:[phone] [facility], [address] [place] [address] Dr [address]Mary [place], [id number], [place] tel:[phone] [facility] Encounter for follow-up examination after completed treatment for conditions other than malignant neoplasmPain in left leg 3 Edward Gardiner. [address], [address], [place], [address], [place]. tel:[phone] Referring Provider: Vishal Brock MD, [address], [place], [address]. tel:[phone] Office/Outpt E&M Established 15 Mins [facility], [address] [place] [address] Dr [address]Suite [place] Alvarez [place], [id number], [place] tel:[phone] [facility] (idiopathic) with other complications of left lower extremity 3 Edward Gardiner. [address], [address], [place], [address], [place]. tel:[phone] Referring Provider: Vishal Brock MD, [address], [place], [address]. tel:[phone] Office/Outpt E&M Established 15 Mins [facility], [address] [place] [address] Dr [address] [address]Mary [place], [id number], [place] tel:[phone] [facility] venous htn w oth comp of bilateral low extrm 3 Edward RIVAS FACS RVT CARRIE Gardiner. [address], [address], [place], [address], [place]. tel:[phone] Referring Provider: Vishal Brock MD, [address], [place], [address]. tel:[phone] [facility], [address] [place] [address] Dr [address]Mary [place], [id number], [place] tel:[phone] [facility] [place] [facility] [place] No Information 3 Edward RIVAS FACS RVT CARRIE Gardiner. [address], [address], [place], [address], [place]. [phone] Referring Provider: Vishal Brock MD, [address], [place], [address]. tel:[phone] [facility], [address] [place] [address] Dr [address]Mary [place], [id number], [place] tel:[phone] [facility] [place] [facility] [place] Encntr for f/u exam aft trtmt for cond oth than malig neoplmVenous insufficiency (chronic) (peripheral) 3 Edward RIVAS FACS RVT CARRIE Gardiner. [address], [address], [place], [address], [place]. [phone] Referring Provider: Vishal Brock MD, [address], [place], [address]. tel:[phone] [facility], [address] [place] [address] [address]Mary [place], [id number], [place] tel:[phone] [facility] [place] [facility] [place] Venous insufficiency (chronic) (peripheral) 3 Edward RIVAS FACS RVT CARRIE Gardiner. [address], [address], [place], [address], [place]. tel:[phone] Referring Provider: Visahl Brock MD, [address], [place], [address]. tel:[phone] [facility], [address] [place] [address] [address]Mary [place], [id number], [place] tel:[phone] [facility] [place] [facility] [place] Venous insufficiency (chronic) (peripheral) 3 Edward RIVAS FACS T CARRIE Gardiner. [address], [address], [place], [address], [place]. [phone] Referring Provider: Vishal Brock MD, [address], [place], [address]. 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 [address], [address], [place], [place], [id number] , [place]. [phone] Referring Provider: Vishal Brock MD, [address], [place], [address]. tel:[phone] [facility], [address] [place] [address] [address]Mary [place], [id number], [place] tel:[phone] [facility] [place] [facility] [place] Encntr for f/u exam aft trtmt for cond oth than malig neoplmVenous insufficiency (chronic) (peripheral) 3 Edward RIVAS FACS T CARRIE Gardiner. [address], [address], [place], [address], [place]. [phone] Referring Provider: Vishal Brock MD, [address], [place], [address]. tel:[phone] [facility], [address] [place] [address] Dr [address]Mary [place], [id number], [place] tel:[phone] [facility] [place] [facility] [place] Venous insufficiency (chronic) (peripheral) 3 Edward RIVAS FACS T CARRIE Gardiner. [address], [facility] [address], [place], [address], [place]. tel:[phone] Referring Provider: Vishal Brock MD, [address] [place] [address] Dr [address], [place], [address]. tel:[phone] [facility], [address], [place], [id number], [place] tel:[phone] [facility] - [facility] Venous insufficiency (chronic) (peripheral) 3 Edward RIVAS FACS T CARRIE Gardiner. [address], [address], [place], [address], [place]. tel:[phone] Referring Provider: Vishal Brock MD, [address] [place] [address] Dr [address], [place], [address]. tel:[phone] Family History Family Member Type Diagnosis Age At Onset No Information Payers Payer name Insurance type Covered libertarian ID Authorchada tirama(s) Medical Assistance [facility] [id number] Social History Type Description Quantity Date Captured [...]
== END 2024-11-23 15:36 | disposition home or self-care (01) ==
LOC: HO.HOP 14:31
PROVIDERS: PCP Internal Medicine; Visit Provider Clinical Nurse Specialist Psychiatric/Mental Health
DX: F41.1 Generalized anxiety disorder (principal); F33.0 Major depressive disorder, recurrent, mild; F43.21 Adjustment disorder with depressed mood
CPT/HCPCS: 90833; 99214

== ENCOUNTER → 2024-11-23 14:31 | Outpatient (BNVA) | payer OTHER, SELFPAY | PROVIDERS: PCP Internal Medicine; Visit Provider Clinical Nurse Specialist Psychiatric/Mental Health | DX: F41.1 Generalized anxiety disorder (principal); F33.0 Major depressive disorder, recurrent, mild; F43.21 Adjustment disorder with depressed mood | CPT/HCPCS: 99212 ==

== ENCOUNTER 2024-12-07 14:59 | Outpatient (REF) | payer OTHER, SELFPAY ==
--- NOTE | ~2024-12-07 | US_ITS ---
CLINICAL HISTORY: N92.0 - Excessive and frequent menstruation with regular cycle US pelvis transabdominal and transvaginal with color Doppler Comparison: None Findings: Transabdominal scanning performed for overall anatomy. Transvaginal scanning performed for additional detail. LMP: Postmenopausal Anteverted uterus, normal size and heterogeneous echotexture, measuring 7.9 x 4.0 x 4.6 cm. Anterior fundal subserosal fibroid measuring 1.0 cm. Incidental nabothian cysts. Heterogeneous endometrium measuring 5.8 mm in thickness. This is considered thickened if the patient is postmenopausal and symptomatic. The right ovary measures, 1.9 x 1.6 x 1.5 cm. Normal sonographic appearance right ovary. The left ovary measures, 2.0 x 1.7 x 1.0 cm. Normal sonographic appearance left ovary. No adnexal masses or fluid collections. No free fluid Impression: 1. Thickened endometrium in a symptomatic postmenopausal female. 2. 1 cm subserosal fundal fibroid 3. Normal ovaries/adnexa This document has been electronically signed by: Yusuf Nassar MD on 12/10/2024 09:45:50
--- OUTSIDE RECORDS SUMMARY | 2024-12-07 16:39 | XMS_ITS | Clinical Summary ---
Author Organization [address] [facility] Address [address] [place] [address] Phone Care Team Providers Care Rn Peritoneal Dialysis Name Role Phone Vishal Brock MD Primary [...] Team Description 10/12/2024 Telephone Orthopedic Surgery - [place] [address] [address] Moshe Underwood DPM 10/08/2024 3:30 PM EST Consult Orthopedic Surgery - [place] [address] [address] Moshe Underwood DPM Plantar fascial [...] patient's age to complete this topic Insurance [facility] [employer] Care Teams Rn Peritoneal Dialysis Relationship Specialty Start Date End Date Vishal Brock MD [address] [place] [address] Dr William Harkins [place] PCP - General 06/28/24
== END 2024-12-07 15:00 | disposition home or self-care (01) ==
LOC: HO.US 14:59
PROVIDERS: PCP Internal Medicine; Visit Provider Advanced Practice Midwife
DX: N92.0 Excessive and frequent menstruation with regular cycle (principal)
CPT/HCPCS: 76830; 76856

== ENCOUNTER → 2024-12-07 15:01 | Outpatient (BNV) | payer OTHER, SELFPAY | PROVIDERS: PCP Internal Medicine; Visit Provider Radiology Diagnostic Radiology | DX: N92.0 Excessive and frequent menstruation with regular cycle (principal) | CPT/HCPCS: 76830; 76856 ==

== ENCOUNTER 2024-12-19 15:14 | Outpatient (AMB) | payer OTHER, SELFPAY ==
[2024-12-19 15:18] VITALS: BP 118/80; PULSE 80; O2SAT 97; BMI 32.6
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
== END 2024-12-19 16:08 | disposition home or self-care (01) ==
LOC: HO.HMCH 15:14
PROVIDERS: PCP Internal Medicine; Visit Provider Internal Medicine
DX: I10 Essential (primary) hypertension (principal); I49.9 Cardiac arrhythmia, unspecified; F10.20 Alcohol dependence, uncomplicated; F33.0 Major depressive disorder, recurrent, mild; E78.00 Pure hypercholesterolemia, unspecified; D50.9 Iron deficiency anemia, unspecified; K21.9 Gastro-esophageal reflux disease without esophagitis; K58.9 Irritable bowel syndrome, unspecified; M25.511 Pain in right shoulder; M25.512 Pain in left shoulder; M47.814 Spondylosis without myelopathy or radiculopathy, thoracic region; M47.812 Spondylosis without myelopathy or radiculopathy, cervical region

== ENCOUNTER 2024-12-19 15:14 | Outpatient (REF) | payer OTHER, SELFPAY ==
--- NOTE | ~2024-12-19 | XR_ITS ---
CLINICAL HISTORY: M25.512 - Pain in left shoulder 5 view left shoulder Comparison: None Findings: Bones intact. No dislocations. No significant loss of joint space or osteophytes. No erosions. No radiopaque foreign body. IMPRESSION: 1. No acute findings This document has been electronically signed by: Dane Olvera MD, PHD on 12/21/2024 01:36:04
--- NOTE | ~2024-12-19 | XR_ITS ---
CLINICAL HISTORY: M25.511 - Pain in right shoulder 4 view right shoulder Comparison: None Findings: Bones intact. No dislocations. Moderate acromioclavicular joint degenerative changes are present. No radiopaque foreign body. Small calcific density at the distal supraspinatus, consistent with calcific tendinosis. IMPRESSION: 1. Supraspinatus calcific tendinosis. 2. No acute osseous abnormality. This document has been electronically signed by: Dane Olvera MD, PHD on 12/21/2024 01:40:21
== END 2024-12-19 15:15 | disposition home or self-care (01) ==
LOC: HO.XRAY 15:14
PROVIDERS: PCP Internal Medicine; Visit Provider Internal Medicine
DX: M25.512 Pain in left shoulder (principal); M25.511 Pain in right shoulder; I10 Essential (primary) hypertension; I49.9 Cardiac arrhythmia, unspecified; E78.00 Pure hypercholesterolemia, unspecified; D50.9 Iron deficiency anemia, unspecified; K21.9 Gastro-esophageal reflux disease without esophagitis; K58.9 Irritable bowel syndrome, unspecified; M47.814 Spondylosis without myelopathy or radiculopathy, thoracic region; M47.812 Spondylosis without myelopathy or radiculopathy, cervical region; E55.9 Vitamin D deficiency, unspecified; I87.2 Venous insufficiency (chronic) (peripheral); F10.20 Alcohol dependence, uncomplicated; F41.9 Anxiety disorder, unspecified; F43.21 Adjustment disorder with depressed mood; F33.0 Major depressive disorder, recurrent, mild; E66.9 Obesity, unspecified; Z68.32 Body mass index [BMI] 32.0-32.9, adult; Z79.899 Other long term (current) drug therapy; Z98.82 Breast implant status
CPT/HCPCS: 73030; 96127; 99212

== ENCOUNTER → 2024-12-19 16:17 | Outpatient (BNV) | payer OTHER, SELFPAY | PROVIDERS: PCP Internal Medicine; Visit Provider General Practice | DX: M75.31 Calcific tendinitis of right shoulder (principal); M25.512 Pain in left shoulder | CPT/HCPCS: 73030 ==

== ENCOUNTER 2025-01-01 15:13 | Outpatient (AMB) | payer OTHER, SELFPAY ==
--- NOTE | 2025-01-01 15:23 | MHC.OFFVIS ---
Vital Signs 01/01/25 15:27 BP 104/62 Intake Visit Reasons: Ultrasound follow up Aviation Medicine Specialist: Aviation Medicine Specialist Present Allergies morphine Adverse Reaction (Unknown, Verified 01/01/25 15:24) withdrawals/sweats Is last menstrual period known: Yes HPI Comments Details: Patient is here today for a US follow. LMP 11/10/24, reports menses always lasting 7d, skipping up to several months. Has hot flashes. History of pelvic cramping, bloating and IBS. [facility] Medical History (Updated 01/01/25 @ 16:15 by Mary Collier CNM) Irregular bleeding Fibroid Cervical spondylosis Heavy menses History of gastrointestinal stromal tumor (GIST) Wheezing Left foot pain Situational depression Tinea Left shoulder pain Family history of breast cancer Low back pain Paresthesia of left upper extremity Potential exposure to STD Epigastric pain Abdominal bloating At high risk for breast cancer Elbow injury Chest pain Calf pain Umbilical pain Right knee pain Mild anemia Sinus pressure Cough Left ankle pain Problematic vaginal discharge Pain of left great toe Status post fall Pre-op examination Major depressive disorder, recurrent, mild Hot flashes Venous insufficiency of both lower extremities Pure hypercholesterolemia SVT (supraventricular tachycardia) Cardiac arrhythmia Hx of esophageal ulcer Benign essential hypertension Vitamin D deficiency Bipolar disorder Alcoholism Obesity (BMI 30-39.9) Anxiety Bipolar 1 disorder Depression Surgical History History of breast augmentation Hx of nasal septoplasty History of incisional hernia repair Hx of colonoscopy Hx of section Hx of gastrostomy (~04/2002) Hx of endoscopy Family History Father Esophagus cancer, Onset Age: 63 Mother Breast cancer, Onset Age: 46 Maternal Grandfather Cancer Paternal Aunt Breast cancer Maternal Aunt Breast cancer Son MVA (motor vehicle accident) Social History Household Members: None Housing: House Alcohol intake: current Alcohol intake frequency: holidays/special occasions only Patient Tobacco Use Status: Current everyday Tobacco user Cigarettes Per Day: 5 Years Smoked: rarely- occasional smoker e-Cigarette/Vaping Use: Never Used Second Hand Smoke Exposure: Yes service: No Current occupational status: employed Cognitive needs: No Hearing needs: No Vision needs: Yes Female Reproductive History Menstrual Age of Menarche: 14 Review of Systems Const All systems reviewed & are unremarkable except as noted in HPI and below Endo Reports no additional complaints Physical Exam Vital Signs: Last Vital Signs BP 104/62 01/01/25 15:27 Const General: cooperative, healthy appearing and no acute distress Psych Appearance: well kempt Attitude: cooperative Thought process: Normal thought process present Results Reviewed Results Reviewed: [address] [address] Ultrasound Report Signed Patient: Carla Lopez MR#: [id number] : 1970 Acct:[id number] Age/Sex: 54 / F ADM Date: 12/07/24 Loc: HO.US Attending Dr: Mary Collier CNM Ordering Physician: Mary Collier CNM Date of Service: 12/07/24 Procedure(s): US pelvic and transvaginal Accession Number(s): [id number] cc: Vishal Brock MD; Mary Collier CNM~ CLINICAL HISTORY: N92.0 - Excessive and frequent menstruation with regular cycle US pelvis transabdominal and transvaginal with color Doppler Comparison: None Findings: Transabdominal scanning performed for overall anatomy. Transvaginal scanning performed for additional detail. LMP: Postmenopausal Anteverted uterus, normal size and heterogeneous echotexture, measuring 7.9 x 4.0 x 4.6 cm. Anterior fundal subserosal fibroid measuring 1.0 cm. Incidental nabothian cysts. Heterogeneous endometrium measuring 5.8 mm in thickness. This is considered thickened if the patient is postmenopausal and symptomatic. The right ovary measures, 1.9 x 1.6 x 1.5 cm. Normal sonographic appearance right ovary. The left ovary measures, 2.0 x 1.7 x 1.0 cm. Normal sonographic appearance left ovary. No adnexal masses or fluid collections. No free fluid Impression: 1. Thickened endometrium in a symptomatic postmenopausal female. 2. 1 cm subserosal fundal fibroid 3. Normal ovaries/adnexa This document has been electronically signed by: Yusuf Nassar MD on 12/10/2024 09:45:50 Dictated By: Yusuf Nassar MD Signed By: <Electronically signed by Yusuf Nassar MD in OV> 12/10/2446 DD/ 4 TD/TT: 12/10/24944 Central Processing Technician: Assessment & Plan Assessment & Plan (1) Fibroid: Code(s): D21.9 - Benign neoplasm of connective and other soft tissue, unspecified Category: Medical Plan: Counseled re: Leiomyoma: common pelvic neoplasm. Differential diagnosis-may include but not limited to- leiomyosarcoma which is a rare uterine sarcoma 3-7/100,000, difficult to distinguish from fibroids on ultrasound from uterine sarcoma's. Unlikely any single test will have a highly positive predictive value. Hysterectomy is not recommended for sole purpose of excluding malignant neoplasm. Consult for surgical exploration, medical treatment, other treatments, verses expectant management, pros and cons, risks and benefits. Expectant management follow up in 6 months, then yearly for stability. Patient prefers to proceed with expectant management. Report any PMBAUB, pelvic pressure, bloating, or pain. Referral to MD if indicated for level of care if indicated. (2) Irregular bleeding: Code(s): N92.6 - Irregular menstruation, unspecified Category: Medical Plan Discussed: Menopause verses perimenopause. Menopause is definitive of 1 year of no menses or 12 months in succession. Report any abnormal uterine bleeding in example prolonged episodes, or short intervals less than 24 days. FSH elevated-55.5. Discussed obtaining an endometrial biopsy, patient does not want to have that while awake she has had in the past and reports it being very painful she is agreeable to have it done if she could be put to sleep. Consult for endometrial biopsy-hysteroscopy appointment to be made with Dr. Hernandez. The patient expressed understanding and agreement with the plan of care. All of her questions and concerns were addressed to the best of my ability. This note is constructed using voice recognition software. While every effort has been made to ensure accuracy, security professional errors may have been included. Orders: Orders US pelvic and transvaginal 05/20/25 D21.9 - Benign neoplasm of connective and other soft tissue, unspecified Lutenizing Hormone Today N92.6 - Irregular menstruation, unspecified Follicle Stimulating Hormone Today N92.6 - Irregular menstruation, unspecified, R23.2 - Flushing Coding Level of Care Code Est Pt Level 3 (87163) Diagnoses Fibroid D21.9 Irregular bleeding N92.6
[2025-01-01 15:27] VITALS: BP 104/62
--- OUTSIDE RECORDS SUMMARY | 2025-01-01 18:04 | XMS_ITS | Clinical Summary ---
Author Organization [facility] Address [address] [place] [address] Phone Care Team Providers Care Pig Machine Crane Operator Name Role Phone Vishal Brock MD Primary [...] 240 g 1 5 12/08/19 25 Active Problems Problem Noted Date Diagnosed Date [...] Team Description 10/12/2024 Telephone Orthopedic Surgery - [place] [address] [phone] Moshe Underwood DPM 10/08/2024 3:30 PM EST Consult Orthopedic Surgery - [place] [address] [address] Moshe Underwood DPM Plantar fascial [...] Td Vaccines (1 - Tdap) 1989 Hepatitis B Vaccines (1 of 3 [...] on patient's age to complete this topic Hepatitis A Vaccines Aged Out No long er eligible based on patient's age to complete [...] patient's age to complete this topic Insurance [facility] PUBLIC PLANS Care Teams Pig Machine Crane Operator Relationship Specialty Start Date End Date Vishal Brock MD [address] [place] [address] Dr William Harkins MA PCP - General 06/28/24
== END 2025-01-01 16:23 | disposition home or self-care (01) ==
LOC: HO.HWS 15:14
PROVIDERS: PCP Internal Medicine; Visit Provider Advanced Practice Midwife
DX: D21.9 Benign neoplasm of connective and other soft tissue, unspecified (principal); N92.6 Irregular menstruation, unspecified
CPT/HCPCS: 99213

== ENCOUNTER → 2025-01-01 15:13 | Outpatient (BNVA) | payer OTHER, SELFPAY | PROVIDERS: PCP Internal Medicine; Visit Provider Advanced Practice Midwife | DX: D21.9 Benign neoplasm of connective and other soft tissue, unspecified (principal); N92.6 Irregular menstruation, unspecified | CPT/HCPCS: 99212 ==

== ENCOUNTER 2025-01-08 15:27 | Outpatient (AMB) | payer OTHER, SELFPAY ==
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
--- OUTSIDE RECORDS SUMMARY | 2025-01-08 18:21 | XMS_ITS | Encounter Summary ---
Author Organization [facility] Address [address] [place] [address] Care Team Providers Care Correction Officer [place] [facility] Name Role Phone Blane Masters MD Primary Care Provider Unava ilable Vishal Brock MD Primary Care Provider Unava ilable Encounter Details Date Type Department Care Team Description 04/10/2018 Pt. Non Urgent Medic al Question Adult Medicine [address] [address] Paola Ball MD Social History Tobacco Use Types Packs/Day Years Used Date Smoking Tobacco: Former Cigarettes Smokeless Tobacco: Never Alcohol Use Standard Drinks/Week Comments Yes 0 (1 standard drink = 0.6 oz pur e alcohol) social Sex Assigned at Date Recorded Not on file documented as of this encounter Progress Notes * Linda Gaitan M.A. - 04/11/2018 8:45 AM EDTFrom: Carla Lopez To: Paola Rutledge MD Sent: 04/10/2018 7:17 PM EDT Subject: Metoprolol succinate 25 mg Can you please refill my perscription? I wpuld like to continue with this medication. I Thank you documented in this encounter Plan of Treatment Not on file documented as of this encounter Visit Diagnoses Not on filedocumented in this encounter Care Teams Correction Officer [place] [facility] Relationship Specialty Start Date End Date Blane Masters MD PCP - General Internal Medicine 03/31/18 06/27/24 Vishal Brock MD PCP - General Internal Medicine 06/28/24 documented as of this encounter
--- OUTSIDE RECORDS SUMMARY | 2025-01-08 18:22 | XMS_ITS | Encounter Summary ---
Author Organization [facility] Address [address] [place] [address] Care Team Providers Care Supervisor Solder Making Name Role Phone Paola Ball MD Primary Care Provider Unavail able Blane Masters MD Primary Care Provider Vishal Leon MD Primary Care Provider Dariel galloway Encounter Details Date Type Department Care Team Description 03/22/2018 Pt. Non Urgent Medic al Question Adult Medicine [address] [address] Paola Ball MD Social History Tobacco Use Types Packs/Day Years Used Date Smoking Tobacco: Former Cigarettes Smokeless Tobacco: Never Alcohol Use Standard Drinks/Week Comments Yes 0 (1 standard drink = 0.6 oz pur e alcohol) social Sex Assigned at Date Recorded Not on file documented as of this encounter Progress Notes * Parul Brown M.A. - 03/22/2018 11:03 AM EDTFrom: Carla Lopez To: Paola Rutledge MD Sent: 03/22/2018 10:44 AM EDT Subject: Swollen feet Castillo Rutledge I've been having a lot of swelling in my feet everyday . I don't know if I should be concerned about this. Comee the end of the day its difficult to walk. Do you know what would be causing this and can it be stopped? documented in this encounter Plan of Treatment Not on file documented as of this encounter Visit Diagnoses Not on filedocumented in this encounter Care Teams Supervisor Solder Making Relationship Specialty Start Date End Date Paola Ball MD PCP - General Internal Medicine 01/27/18 03/30/18 Blane Masters MD PCP - General Internal Medicine 03/31/18 06/27/24 Vishal Brock MD PCP - General Internal Medicine 06/28/24 documented as of this encounter
--- OUTSIDE RECORDS SUMMARY | 2025-01-08 18:22 | XMS_ITS | Encounter Summary ---
Author Organization [facility] Address [facility] [place] [address] Care Team Providers Care Fruit Shipper Name Role Phone Blane Masters MD Primary Care Provider Unava ilable Vishal Brock MD Primary Care Provider Unava ilable Encounter Details Date Type Department Care Team Description 04/20/2018 Veneer Drier Tailer Report Medical Records [address] [place] [address] Kimberly Will, CHRIS Social History Tobacco Use Types Packs/Day Years Used Date Smoking Tobacco: Former Cigarettes Smokeless Tobacco: Never Alcohol Use Standard Drinks/Week Comments Yes 0 (1 standard drink = 0.6 oz pur e alcohol) social Sex Assigned at Date Recorded Not on file documented as of this encounter Plan of Treatment Not on file documented as of this encounter Visit Diagnoses Not on filedocumented in this encounter Care Teams Fruit Shipper Relationship Specialty Start Date End Date Blane Masters MD PCP - General Internal Medicine 03/31/18 06/27/24 Vishal Brock MD PCP - General Internal Medicine 06/28/24 documented as of this encounter
--- OUTSIDE RECORDS SUMMARY | 2025-01-08 18:22 | XMS_ITS | Encounter Summary ---
Author Organization [facility] Address [address] [place] [address] Care Team Providers Care Carpenter Assembler Name Role Phone Paola Ball MD Primary Care Provider Blane Jiménez MD Primary Care Provider Unava Vishal Young MD Primary Care Provider Unava ilgerardo Encounter Details Date Type Department Care Team Description 03/24/2018 Orders Only Adult Medicine [address] [address] Paola Ball MD Pedal edema (Primary Dx) Social History Tobacco Use Types Packs/Day Years Used Date Smoking Tobacco: Former Cigarettes Smokeless Tobacco: Never Alcohol Use Standard Drinks/Week Comments Yes 0 (1 standard drink = 0.6 oz pur e alcohol) social Sex Assigned at Date Recorded Not on file documented as of this encounter Plan of Treatment Not on file documented as of this encounter Results * URIC ACID (03/31/2018 1:30 PM EDT) Uric Acid 5.1 2.1 - 6.2 mg/dL 03/31/2018 3:39 PM EDT [facility] 03/31/2018 1:30 PM EDT 03/31/2018 1:30 PM EDT Paola Ball MD LAB [address] * ALBUMIN (03/31/2018 1:30 PM EDT) Albumin 3.9 3.2 - 5.6 gm/dL 03/31/2018 3:39 PM EDT [facility] 03/31/2018 1:30 PM EDT 03/31/2018 1:30 PM EDT Paola Ball MD LAB Performing Organization Address City/State/[facility] Co de Phone Number [facility] [address] documented in this encounter Visit Diagnoses Diagnosis Pedal edema- Primary Edema documented in this encounter Care Teams Carpenter Assembler Relationship Specialty Start Date End Date Paola Ball MD PCP - General Internal Medicine 01/27/18 03/30/18 Blane Masters MD PCP - General Internal Medicine 03/31/18 06/27/24 Vishal Brock MD PCP - General Internal Medicine 06/28/24 documented as of this encounter
--- OUTSIDE RECORDS SUMMARY | 2025-01-08 18:22 | XMS_ITS | Encounter Summary ---
Author Organization [facility] Address [facility] [place] [address] Care Team Providers Care Independent Freight Agent Name Role Phone Blane Masters MD Primary Care Provider Viktoriava Vishal Young MD Primary Care Provider Dariel galloway Encounter Details Date Type Department Care Team Description 05/13/2018 [facility] Medical Records [address] [place] [address] Jas Sunshine Social History Tobacco Use Types Packs/Day Years [...] on filedocumented in this encounter Care Teams Independent Freight Agent Relationship Specialty Start Date End Date Blane Masters MD PCP - General Internal Medicine 03/31/18 06/27/24 Vishal Brock MD PCP - General Internal Medicine 06/28/24 documented as of this encounter
--- OUTSIDE RECORDS SUMMARY | 2025-01-08 18:22 | XMS_ITS | Encounter Summary ---
Author Organization [facility] Address [facility] [place] [address] Care Team Providers Care Linotype Operator Name Role Phone Blane Masters MD Primary Care Provider Vishal Leon MD Primary Care Provider Dariel galloway Encounter Details Date Type Department Care Team Description 12/12/2023 Orders Only Medical Records [address] [place] [address] [facility] Social History Tobacco Use Types Packs/Day Years Used Date Smoking Tobacco: Former Cigarettes Smokeless Tobacco: Never Alcohol Use Standard Drinks/Week Comments Yes 0 (1 standard drink = 0.6 oz pur e alcohol) social Sex Assigned at Date Recorded Not on file documented as of this encounter Plan of Treatment Not on file documented as of this encounter Procedures Procedure Name Priority Date/Time Associated Diagnosis Comments OUTSIDE PLAIN FILM Routine 12/01/2023 documented in this encounter Results * OUTSIDE PLAIN FILM (12/01/2023) [facility] RADIOLOGY documented in this encounter Visit Diagnoses Not on filedocumented in this encounter Care Teams Linotype Operator Relationship Specialty Start Date End Date Blane Masters MD PCP - General Internal Medicine 03/31/18 06/27/24 Vishal Brock MD PCP - General Internal Medicine 06/28/24 documented as of this encounter
--- OUTSIDE RECORDS SUMMARY | 2025-01-08 18:22 | XMS_ITS | Clinical Summary ---
Author Organization 175 [facility] Address [address] [place] [address] Phone Care Team Providers Care Quality Control Name Role Phone Vishal Brock MD Primary Care Provider [phone] Allergies No known active allergies Medications cholecalciferol (VITAMIN D-3) 25 mcg (1,000 unit) tablet Take 1,000 Units by mouth daily. Active ferrous sulfate 325 mg (65 mg iron) EC tablet Take 1 Tab by mouth daily (with breakfast). 03/23/2018 Active furosemide (LASIX) 20 mg tablet Take 1 Tab by mouth daily. 07/06/2018 Active metoprolol succinate (TOPROL-XL) 25 mg 24 hr tablet Take 1 Tab by mouth daily. 04/11/2018 Active LORazepam (ATIVAN) 1 mg tablet Take 1 mg by mouth daily as needed. Active magnesium oxide 500 mg magnesium tablet Take 1 Tab by mouth 2 times daily. 03/31/2018 Active omeprazole (PRILOSEC) 20 mg tablet,delayed release (DR/EC) Take 1 Tab by mouth 2 times daily. 03/31/2018 Active Active Problems Problem Noted Date Diagnosed [...] Team Description 10/12/2024 Telephone Orthopedic Surgery - [place] [address] [place] [id number] Moshe Underwood DPLashawn from Last 3 Months Social History Tobacco [...] age to complete this topic Meningococcal B Vaccine Aged Out No l onger eligible based on patient's age to complete [...] patient's age to complete this topic Insurance [facility] [employer] Care Teams Quality Control Relationship Specialty Start Date End Date Vishal Brock MD [address] [place] [address] Dr Thomas [address] ROSARIO Harkins PCP - General 06/28/24
== END 2025-01-08 16:24 | disposition home or self-care (01) ==
LOC: HO.HOP 15:27
PROVIDERS: PCP Internal Medicine; Visit Provider Clinical Nurse Specialist Psychiatric/Mental Health
DX: F41.1 Generalized anxiety disorder (principal); F33.0 Major depressive disorder, recurrent, mild; F43.21 Adjustment disorder with depressed mood
CPT/HCPCS: 90833; 99214

== ENCOUNTER → 2025-01-08 15:27 | Outpatient (BNVA) | payer OTHER, SELFPAY | PROVIDERS: PCP Internal Medicine; Visit Provider Clinical Nurse Specialist Psychiatric/Mental Health | DX: F41.1 Generalized anxiety disorder (principal); F33.0 Major depressive disorder, recurrent, mild; F43.21 Adjustment disorder with depressed mood | CPT/HCPCS: 99212 ==

== ENCOUNTER 2025-01-22 11:16 | Outpatient (AMB) | payer OTHER, SELFPAY ==
--- NOTE | 2025-01-22 11:38 | MHC.OFFVIS ---
Vital Signs 01/22/25 11:41 Height 5 ft 6 in Weight 202 lb BMI 32.6 BP 110/72 Intake Visit Reasons: pre op Tenant Relations Coordinator Required: No Information Interpreted: non-clinical & clinical Vice President Risk Management: Vice President Risk Management Present Accompanied by: Self / Same As Patient Allergies morphine Adverse Reaction (Unknown, Verified 01/22/25 11:41) withdrawals/sweats Is last menstrual period known: Yes Last menstrual period: 07/31/20 Post menopausal: Yes Patient : No Do you need a note to return to daycare/school/sports/work: Yes (for surgery on tuesday) HPI Comments Details: Presenting referred from Mary Collier CNM regarding abnormal uterine bleeding. Ultrasound done in 12/25 showed the following: LMP: Postmenopausal Anteverted uterus, normal size and heterogeneous echotexture, measuring 7.9 x 4.0 x 4.6 cm. Anterior fundal subserosal fibroid measuring 1.0 cm. Incidental nabothian cysts. Heterogeneous endometrium measuring 5.8 mm in thickness. This is considered thickened if the patient is postmenopausal and symptomatic. The right ovary measures, 1.9 x 1.6 x 1.5 cm. Normal sonographic appearance right ovary. The left ovary measures, 2.0 x 1.7 x 1.0 cm. Normal sonographic appearance left ovary. No adnexal masses or fluid collections. No free fluid Last co testing in 05/25 was negative [facility] Medical History Irregular bleeding Fibroid Cervical spondylosis Heavy menses History of gastrointestinal stromal tumor (GIST) Wheezing Left foot pain Situational depression Tinea Left shoulder pain Family history of breast cancer Low back pain Paresthesia of left upper extremity Potential exposure to STD Epigastric pain Abdominal bloating At high risk for breast cancer Elbow injury Chest pain Calf pain Umbilical pain Right knee pain Mild anemia Sinus pressure Cough Left ankle pain Problematic vaginal discharge Pain of left great toe Status post fall Pre-op examination Major depressive disorder, recurrent, mild Hot flashes Venous insufficiency of both lower extremities Pure hypercholesterolemia SVT (supraventricular tachycardia) Cardiac arrhythmia Hx of esophageal ulcer Benign essential hypertension Vitamin D deficiency Bipolar disorder Alcoholism Obesity (BMI 30-39.9) Anxiety Bipolar 1 disorder Depression Surgical History History of breast augmentation Hx of nasal septoplasty History of incisional hernia repair Hx of colonoscopy Hx of section Hx of gastrostomy (~04/2002) Hx of endoscopy Family History Father Esophagus cancer, Onset Age: 63 Mother Breast cancer, Onset Age: 46 Maternal Grandfather Cancer Paternal Aunt Breast cancer Maternal Aunt Breast cancer Son MVA (motor vehicle accident) Social History Household Members: None Housing: House Alcohol intake: current Alcohol intake frequency: holidays/special occasions only Patient Tobacco Use Status: Current everyday Tobacco user Cigarettes Per Day: 5 Years Smoked: rarely- occasional smoker e-Cigarette/Vaping Use: Never Used Second Hand Smoke Exposure: Yes service: No Current occupational status: employed Cognitive needs: No Hearing needs: No Vision needs: Yes Female Reproductive History Menstrual Age of Menarche: 14 Date of last menstrual period: 07/31/20 Total pregnancies: 2 Full term: 2 Review of Systems Card Reports as per HPI and Reports no additional complaints Resp Reports as per HPI and Reports no additional complaints GI Reports as per HPI and Reports no additional complaints Reports as per HPI Physical Exam Vital Signs: Last Vital Signs BP 110/72 01/22/25 11:41 BMI result Body Mass Index 32.6 Const General: cooperative, healthy appearing and comfortable Resp Effort & Inspection: normal respiratory effort Auscultation: clear to auscultation bilaterally Percussion: percussion normal Cardio Palpation: normal PMI Rate: regular rate Rhythm: regular rhythm Heart sounds: no murmurs and no rubs Peripheral pulses: Peripheral pulses 2+ throughout GI Inspection: Yes normal to inspection Palpation (GI): Soft to palpation, nontender, no guarding, not rigid and No hepatosplenomegaly present Percussion: Yes normal to percussion Auscultation: normal bowel sounds Rectal Exam - Female: deferred Assessment & Plan Assessment & Plan (1) Irregular bleeding: Code(s): N92.6 - Irregular menstruation, unspecified Category: Medical Plan: Discussed with the patient the pelvic ultrasound findings. Recommended to the patient that the next step is an endometrial sampling via hysteroscopy D&C possible polypectomy versus endometrial biopsy to r/o endometrial pathology including hyperplasia or cancer. All the pros and cons risks and benefits of each approach were discussed with the patient, endometrial biopsy being less invasive, office procedure with less sensitivity and inability diagnose a polyp and removal versus hysteroscopy done under anesthesia more invasive more sensitive to endometrial cancer and possibility of diagnosing and endometrial polyp with the possibility of polypectomy. All questions were answered pt verbalized understanding and decided to proceed with hysteroscopy D&C possible polypectomy/myomectomy. Discussed with the patient the procedure , all benefits and risks including but not limited to inability to complete the procedure , insufficient endometrial tissue for a complete evaluation of the endometrial cavity , bleeding, infection, possible need for blood transfusion with all its risk ( HIV,syphilis, Hepatitis, anaphylaxis shock, others..), injury to bladder, rectum, possible need for laparoscopy/laparotomy or hysterectomy. The patient verbalized understanding and signed the consent. Instructions given the patient to stay NPO after midnight the day prior to the procedure and to take only the specific medication (s) discussed the morning of the surgical procedure and to schedule a 2 week postoperative appointment (2) Uterine myoma: Code(s): D25.9 - Leiomyoma of uterus, unspecified Category: Medical Plan: Discussed with the patient the findings on pelvic ultrasound & the risk of myosarcoma; in addition reviewed with the patient that malignancy and pre malignancy cannot be ruled out without hysterectomy for pathological evaluation ; furthermore, explained to the patient the limitation of pelvic ultrasound and endometrial biopsy in the setting. Discussed with the patient the options of treatment including expectant management versus hysterectomy; the pros and cons, risks benefits of each approach were discussed with the patient including the fact that in cases of myosarcoma, surgical treatment can lead to early diagnosis and positively affects the prognosis; after further discussion, the patient decided to proceed with expectant management. Will repeat pelvic ultrasound periodically. Instructions given to patient to call in case any of the following occurs: pressure symptoms, abnormal uterine bleeding, pelvic pain . All questions answered, the patient verbalized understanding and agreed with the plan . Coding Level of Care Code Est Pt Level 3 (63810) Diagnoses Irregular bleeding N92.6 Uterine myoma D25.9
[2025-01-22 11:41] VITALS: BP 110/72; BMI 32.6
--- OUTSIDE RECORDS SUMMARY | 2025-01-22 13:33 | XMS_ITS | Encounter Summary ---
Author Organization [facility] Address [address] [place] [address] Care Team Providers Care Director Of Loss Prevention Name Role Phone Blane Masters MD Primary Care Provider Unava ilable Vishal Brock MD Primary Care Provider Unava ilable Encounter Details Date Type Department Care Team Description 04/10/2018 Pt. Non Urgent Medic al Question Adult Medicine [address] [address] Paola Ball MD Social History Tobacco Use [...] on filedocumented in this encounter Care Teams Director Of Loss Prevention Relationship Specialty Start Date End Date Blane Masters MD PCP - General Internal Medicine 03/31/18 06/27/24 Vishal Brock MD PCP - General Internal Medicine 06/28/24 documented as of this encounter
--- OUTSIDE RECORDS SUMMARY | 2025-01-22 13:33 | XMS_ITS | Encounter Summary ---
Author Organization [facility] Address [address] [place] [address] Care Team Providers Care Beader Tender Name Role Phone Paola Ball MD Primary Care Provider Blane Jiménez MD Primary Care Provider Unava Vishal Young MD Primary Care Provider Unava ilgerardo Encounter Details Date Type Department Care Team Description 03/24/2018 Orders Only Adult Medicine [address] [address] Paola Ball MD Pedal edema (Primary Dx) [...] - 6.2 mg/dL 03/31/2018 3:39 PM EDT [facility] 03/31/2018 1:30 PM EDT 03/31/2018 1:30 PM EDT Paola Ball MD LAB [address] * ALBUMIN (03/31/2018 1:30 PM EDT) Albumin 3.9 3.2 - 5.6 gm/dL 03/31/2018 3:39 PM EDT [facility] 03/31/2018 1:30 PM EDT 03/31/2018 1:30 PM EDT Paola Ball MD LAB Performing Organization Address City/State/[facility] Co de Phone Number [facility] [address] documented in this encounter Visit Diagnoses Diagnosis Pedal edema- Primary Edema documented in this encounter Care Teams Beader Tender Relationship Specialty Start Date End Date Paola Ball MD PCP - General Internal Medicine 01/27/18 03/30/18 Blane Masters MD PCP - General Internal Medicine 03/31/18 06/27/24 Vishal Brock MD PCP - General Internal Medicine 06/28/24 documented as of this encounter
--- OUTSIDE RECORDS SUMMARY | 2025-01-22 13:34 | XMS_ITS | Continuity of Care Document ---
Author Organization [facility] Address [address] [place] [address] Phone Care Team Providers Care Sales Applications Engineer Name Role Phone Edward RIVAS FACS [...] Providers Copied on Encounter [facility], [address] [place] [address] Dr [address]Mary [place], [id number], [place] tel:[phone] CVR - [facility] No Information 3 Edward Gardiner. [address], [address], [place], [address], [place]. tel:[phone] Referring Provider: Vishal Brock MD, [address], [place], [address]. tel:[phone] [facility], [address] [place] [address] Dr [address]Mary [place], [id number], [place] tel:[phone] CV[facility] - [facility] Encounter for follow-up examination after completed treatment for conditions other than malignant neoplasmPain in left leg 3 Edward Gardiner. [address], [address], [place], [address], [place]. tel:[phone] Referring Provider: Vishal Brock MD, [address], [place], [address]. tel:[phone] Office/Outpt E&M Established 15 Mins [facility], [address] [place] [address] Dr [address] Mary Alvarez [place], [id number], [place] tel:[phone] [facility] venous hypertension (idiopathic) with other complications of left lower extremity 3 Edward Gardiner. [address], [address], [place], [address], [place]. tel:[phone] Referring Provider: Vishal Brock MD, [address], [place], [address]. tel:[phone] Office/Outpt E&M Established 15 Mins [facility], [address] [place] [address] Dr [address]Mary [place], [id number], [place] tel:[phone] [facility] Chronic venous htn w oth comp of bilateral low extrm 3 Edward RIVAS FACS RVT CARRIE Gardiner. [address], [address], [place], [address], [place]. tel:[phone] Referring Provider: Vishal Brock MD, [address], [place], [address]. tel:[phone] [facility], [address] [place] [address] Dr [address]Mary [place], [id number], [place] tel:[phone] [facility] - [place] [facility] [place] No Information 3 Edward RIVAS FACS RVT CARRIE Gardiner. [address], [address], [place], [address], [place]. [phone] Referring Provider: Vishal Brock MD, [address], [place], [address]. tel:[phone] [facility], [address] [place] [address] Dr [address] [address]Mary [place], [id number], [place] tel:[phone] [facility] - [place] [facility] [place] Encntr for f/u exam aft trtmt for cond oth than malig neoplmVenous insufficiency (chronic) (peripheral) 3 Edward RIVAS FACS RVT CARRIE Gardiner. [address], [address], [place], [address], [place]. [phone] Referring Provider: Vishal Brock MD, [address], [place], [address]. tel:[phone] [facility], [address] [place] [address] [address]Mary [place], [id number], [place] tel:[phone] [facility] - [place] [facility] [place] Venous insufficiency (chronic) (peripheral) 3 Edward RIVAS FACS RVT CARRIE Gardiner. [address], [address], [place], [address], [place]. tel:[phone] Referring Provider: Vishal Brock MD, [address], [place], [address]. tel:[phone] [facility], [address] [place] [address] [address]Mary [place], [id number], [place] tel:[phone] [facility] - [place] [facility] [place] Venous insufficiency (chronic) (peripheral) 3 Edward RIVAS FACS T CARRIE Gardiner. [address], [address], [place], [address], [place]. [phone] Referring Provider: Vishal Brock MD, [address], [place], [address]. 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 [address], [address], [place], [place], [id number] , [place]. [phone] Referring Provider: Vishal Brock MD, [address], [place], [address]. tel:[phone] [facility], [address] [place] [address] [address] [address]Mary [place], [id number], [place] tel:[phone] [facility] - [place] [facility] [place] Encntr for f/u exam aft trtmt for cond oth than malig neoplmVenous insufficiency (chronic) (peripheral) 3 Edward RIVAS FACS T CARRIE Gardiner. [address], [address], [place], [address], [place]. [phone] Referring Provider: Vishal Brock MD, [address], [place], [address]. tel:[phone] [facility], [address] [place] [address] Dr Thomas [address] [address]Mary [place], [id number], [place] tel:[phone] CV[facility] - [place] [facility] [place] Venous insufficiency (chronic) (peripheral) 3 Edward RIVAS FACS T CARRIE Gardiner. [address], [facility] [address], [place], [address], [place]. tel:[phone] Referring Provider: Vishal Brock MD, [address] [place] [address] Dr [address], [place], [address]. tel:[phone] [facility], [address], [place], [id number], [place] tel:[phone] CVR - [facility] Venous insufficiency (chronic) (peripheral) 3 Edward RIVAS FACS T CARRIE Gardiner. [address], [address], [place], [address], [place]. tel:[phone] Referring Provider: Vishal Brock MD, [address] [place] [address] Dr [address], [place], [address]. tel:[phone] Family History Family Member Type Diagnosis Age At Onset No Information Payers Payer name Insurance type Covered constitution party ID Authorchada tirama(s) Medical Assistance [facility] [id number] Social History Type Description Quantity Date Captured [...]
--- OUTSIDE RECORDS SUMMARY | 2025-01-22 13:34 | XMS_ITS | Encounter Summary ---
Author Organization [facility] Address [address] [place] [address] Care Team Providers Care Chair Finisher Name Role Phone Paola Ball MD Primary Care Provider Unavail Blane Beasley MD Primary Care Provider UnaVishal Bell MD Primary Care Provider Viktoriava ilgerardo Encounter Details Date Type Department Care Team Description 02/09/2018 Orders Only Adult Medicine [address] [address] Paola Ball MD Normocytic anemia (Primary Dx) Social History Tobacco Use Types Packs/Day Years Used Date Smoking Tobacco: Former Cigarettes Smokeless Tobacco: Never Alcohol Use Standard Drinks/Week Comments Yes 0 (1 standard drink = 0.6 oz pur e alcohol) social Sex Assigned at Date Recorded Not on file documented as of this encounter Plan of Treatment Not on file documented as of this encounter Results * VITAMIN B-12, ASSAY (02/09/2018 5:07 PM EDT) VITAMIN B12 426 211 - 946 pg/mL 02/10/2018 10:55 AM EDT [facility] 02/09/2018 5:07 PM EDT 02/09/2018 5:07 PM EDT Paola Ball MD LAB [address] * (ABNORMAL) FOLIC ACID (02/09/2018 5:07 PM EDT) FOLATE 18.5(H) 2.8 - 17.0 ng/ml 02/09/2018 8:58 PM EDT [facility] 02/09/2018 5:07 PM EDT 02/09/2018 5:07 PM EDT Paola Ball MD LAB [facility] * (ABNORMAL) IRON/TIBC (02/09/2018 5:07 PM EDT) UNSATURATED IRON BINDING CAP 331 ug/dl 02/10/2018 11:14 AM EDT [facility] TIBC 352 152 - 496 ug/dL 02/10/2018 11:14 AM EDT [facility] IRON 21(L) 40 - 150 ug/dL 02/10/2018 10:47 AM EDT [facility] % FE SATURATION 6(L) 15 - 50 % 8 11:14 AM EDT [facility] 02/09/2018 5:07 PM EDT 02/09/2018 5:07 PM EDT Paola Ball MD LAB [facility] [address] [facility] documented in this encounter Visit Diagnoses Diagnosis Normocytic anemia- Primary Anemia, unspecified documented in this encounter Care Teams Chair Finisher Relationship Specialty Start Date End Date Paola Ball MD PCP - General Internal Medicine 01/27/18 03/30/18 Blane Masters MD PCP - General Internal Medicine 03/31/18 06/27/24 Vishal Brock MD PCP - General Internal Medicine 06/28/24 documented as of this encounter
--- OUTSIDE RECORDS SUMMARY | 2025-01-22 13:34 | XMS_ITS | Encounter Summary ---
Author Organization [facility] Address [facility] [place] [address] Care Team Providers Care Pyrometer Mechanic Name Role Phone Paola Ball MD Primary Care Provider Unavail able Blane Masters MD Primary Care Provider Viktoriava Vishal Young MD Primary Care Provider Dariel galloway Encounter Details Date Type Department Care Team Description 02/13/2018 Release of Information Medical Records [address] [place] [id number] Abstract, Provider Social History Tobacco Use Types Packs/Day Years [...] on filedocumented in this encounter Care Teams Pyrometer Mechanic Relationship Specialty Start Date End Date Paola Ball MD PCP - General Internal Medicine 01/27/18 03/30/18 Blane Masters MD PCP - General Internal Medicine 03/31/18 06/27/24 Vishal Brock MD PCP - General Internal Medicine 06/28/24 documented as of this encounter
--- OUTSIDE RECORDS SUMMARY | 2025-01-22 13:34 | XMS_ITS | Clinical Summary ---
Author Organization [facility] Address [address] [place] [address] Phone Care Team Providers Care Basketball Assembler Name Role Phone Vishal Brock MD Primary [...] Problem Noted Date Diagnosed Date Alcohol withdrawal (CMS/HCC V24, CMS/HCC V28) Overview (08/22/2024): Admitted to hospital 05/2018 Venous insufficiency of both lower extremities 0 03/31/2018 Iron deficiency anemia 02/10/2018 Alcohol abuse 02/09/2018 Overview (08/22/2024): H/o AA and outpatient rehab Anxiety 02/09/2018 GERD (gastroesophageal reflux disease) 8 Hiatal hernia 02/09/2018 Insomnia 02/09/2018 Obesity (BMI 30-39.9) 02/09/2018 Social History Tobacco Use Types Packs/Day Years [...] - 2023-2 5 season) 2024 05/26/2021, 05/05/2021 Cholesterol Screening (Lipid Panel) 07/28/2024 Colorectal Cancer Screening: Colonoscopy 07/28/2024 Depression Screening 07/28/2024 HIV Screening 07/28/2024 Hepatitis C Screening 07/28/2024 Social Influencers of Health Screening 07/28/2024 Influenza Vaccine (Season Ended) 2025 HIB Vaccines Aged Out No longer eligi [...] patient's age to complete this topic Insurance [facility] [employer] ROSARIO RUBIO [id number] Care Teams Basketball Assembler Relationship Specialty Start Date End Date Vishal Brock MD [address] [place] [address] Dr William Harkins [place] PCP - General 06/28/24
--- OUTSIDE RECORDS SUMMARY | 2025-01-22 13:34 | XMS_ITS | Encounter Summary ---
Author Organization [facility] Address [facility] [place] [address] Care Team Providers Care Figure Refinisher And Repairer Name Role Phone Blane Masters MD Primary Care Provider Unava ilable Vishal Brock MD Primary Care Provider Unava ilable Encounter Details Date Type Department Care Team Description 04/20/2018 Labor Relations Specialist Report Medical Records [address] [place] [address] Kimberly Will, CHRIS Social History Tobacco Use [...] on filedocumented in this encounter Care Teams Figure Refinisher And Repairer Relationship Specialty Start Date End Date Blane Masters MD PCP - General Internal Medicine 03/31/18 06/27/24 Vishal Brock MD PCP - General Internal Medicine 06/28/24 documented as of this encounter
== END 2025-01-22 12:20 | disposition home or self-care (01) ==
PROVIDERS: PCP Internal Medicine; Visit Provider Obstetrics & Gynecology
DX: N92.6 Irregular menstruation, unspecified (principal); D25.9 Leiomyoma of uterus, unspecified
CPT/HCPCS: 99213

== ENCOUNTER → 2025-01-22 11:16 | Outpatient (BNVA) | payer OTHER, SELFPAY | PROVIDERS: PCP Internal Medicine; Visit Provider Obstetrics & Gynecology | DX: Z01.818 Encounter for other preprocedural examination (principal); D25.9 Leiomyoma of uterus, unspecified; N92.6 Irregular menstruation, unspecified | CPT/HCPCS: 99212 ==

== ENCOUNTER 2025-01-25 06:55 | Day surgery (SDC) | payer OTHER, SELFPAY ==
--- OUTSIDE RECORDS SUMMARY | 2025-01-02 09:49 | XMS_ITS | Clinical Summary ---
Author Organization 175 [facility] Address [address] [place] [address] Phone Care Team Providers Care Commercial Makeup Artist Name Role Phone Vishal Brock MD Primary [...] Team Description 10/12/2024 Telephone Orthopedic Surgery - [place] [address] [phone] Moshe Underwood DPM 10/08/2024 3:30 PM EST Consult Orthopedic Surgery - [place] [address] [phone] Moshe Underwood DPM Plantar fascial [...] patient's age to complete this topic Insurance [facility] PUBLIC PLANS Care Teams Commercial Makeup Artist Relationship Specialty Start Date End Date Vishal Brock MD [address] [place] [address] Dr William Harkins MA PCP - General 06/28/24
[2025-01-23 07:29] VITALS: BMI 32.6
--- NOTE | 2025-01-24 09:48 | P.CONAN_ITS ---
Documented by User: Erin Huntley NP 01/24/25 09:49 HPI - Anesthesia Eval Consult details Narrative: 54yo F for D&C Hysteroscopy,possible myomectomy,possible polypectomy Hx ETOH abuse PMFSH Active Problems Active Problems: All Active Problems Uterine myoma (Acute) Postmenopausal bleeding (Acute) Irregular bleeding (Acute) Fibroid (Acute) Annual physical exam (Acute) Cervical spondylosis (Acute) Neck pain (Acute) Bilateral shoulder pain (Acute) Presence of bilateral breast implant (Acute) Heavy menses (Acute) Encounter for well woman exam with routine gynecological exam (Acute) Back pain (Acute) DARBY (generalized anxiety disorder) (Acute) Major depressive disorder, recurrent, mild (Acute) Complicated bereavement (Acute) Recurrent nonproductive cough (Acute) Tubular adenoma of colon (Acute) Bilateral leg cramps (Acute) Anemia (Chronic) GERD (gastroesophageal reflux disease) (Acute) IBS (irritable bowel syndrome) (Acute) Thoracic spondylosis (Acute) Hot flashes (Acute) SVT (supraventricular tachycardia) (Acute) Venous insufficiency of both lower extremities (Acute) Pure hypercholesterolemia (Acute) Cardiac arrhythmia (Acute) Benign essential hypertension (Acute) Vitamin D deficiency (Acute) Alcoholism (Acute) Obesity (BMI 30-39.9) (Acute) Anxiety (Acute) Past Medical History Medical History Irregular bleeding Fibroid Cervical spondylosis Heavy menses History of gastrointestinal stromal tumor (GIST) Wheezing Left foot pain Situational depression Tinea Left shoulder pain Family history of breast cancer Low back pain Paresthesia of left upper extremity Potential exposure to STD Epigastric pain Abdominal bloating At high risk for breast cancer Elbow injury Chest pain Calf pain Umbilical pain Right knee pain Mild anemia Sinus pressure Cough Left ankle pain Problematic vaginal discharge Pain of left great toe Status post fall Pre-op examination Major depressive disorder, recurrent, mild Hot flashes Venous insufficiency of both lower extremities Pure hypercholesterolemia SVT (supraventricular tachycardia) Cardiac arrhythmia Hx of esophageal ulcer Benign essential hypertension Vitamin D deficiency Bipolar disorder Alcoholism Obesity (BMI 30-39.9) Anxiety Bipolar 1 disorder Depression Family History Family History Father Esophagus cancer, Onset Age: 63 Mother Breast cancer, Onset Age: 46 Maternal Grandfather Cancer Paternal Aunt Breast cancer Maternal Aunt Breast cancer Son MVA (motor vehicle accident) Family history of problems with anesthesia: No Surgical History Surgical History History of breast augmentation Hx of nasal septoplasty History of incisional hernia repair Hx of colonoscopy Hx of section Hx of gastrostomy (~04/2002) Hx of endoscopy History of Problems with Anesthesia: No Social History Social History Household Members: None Housing: House Are you a primary customer care specialist to a significant other at home: No Do you presently have visiting nurse or other home services: No Alcohol intake: current Alcohol intake frequency: holidays/special occasions only Patient Tobacco Use Status: Current everyday Tobacco user Cigarettes Per Day: 5 Years Smoked: rarely- occasional smoker e-Cigarette/Vaping Use: Never Used Second Hand Smoke Exposure: Yes Use of substances other than those prescribed or required for medical reasons: No Have you been hit, kicked, punched, or otherwise hurt by someone within the past year? If so, by whom?: No Are you DNR?: No Advance Directives: No Advance Directives Information Provided: Yes Patient : No service: No Current occupational status: employed Cognitive needs: No Hearing needs: No Vision needs: Yes Meds Allergies Allergy/AdvReac Type Severity Reaction Status Date / Time morphine AdvReac Unknown withdrawals Verified 01/22/25 11:41 /sweats Home Medications ?Medication ?Instructions ?Recorded ?Confirmed ?Last Taken ?Type dicyclomine 10 mg capsule 10 mg PO QID PRN Abdominal 01/23/25 01/23/25 Unknown History Discomfort magnesium oxide 200 mg PO DAILY 01/23/25 01/23/25 Unknown History omega 1-lkr-kfg-fish oil 1,200 mg 1 cap PO DAILY 01/23/25 01/23/25 Unknown History (144 mg-216 mg) capsule (Fish Oil) Exam Height,Weight and Vital Signs: Height 5 ft 6 in Weight 91.626 kg Narrative Narrative: EKG 09/2024 Vent. Rate : 073 BPM Atrial Rate : 073 BPM P-R Int : 154 ms QRS Dur : 072 ms QT Int : 406 ms P-R-T Axes : 056 024 046 degrees QTc Int : 447 ms Normal sinus rhythm Low voltage QRS Borderline ECG When compared with ECG of 30-MAY-2024 08:41, Vent. rate has decreased BY 52 BPM Assessment and Plan Assessment Anesthesia Assessment: Chart Reviewed Final Anesthetic Review Family History of Problems with Anesthesia: No History of Problems with Anesthesia: No Documented by User: Coty Raya MD 01/25/25 08:16 PMF Past Medical History Medical History Irregular bleeding Fibroid Cervical spondylosis Heavy menses History of gastrointestinal stromal tumor (GIST) Wheezing Left foot pain Situational depression Tinea Left shoulder pain Family history of breast cancer Low back pain Paresthesia of left upper extremity Potential exposure to STD Epigastric pain Abdominal bloating At high risk for breast cancer Elbow injury Chest pain Calf pain Umbilical pain Right knee pain Mild anemia Sinus pressure Cough Left ankle pain Problematic vaginal discharge Pain of left great toe Status post fall Pre-op examination Major depressive disorder, recurrent, mild Hot flashes Venous insufficiency of both lower extremities Pure hypercholesterolemia SVT (supraventricular tachycardia) Cardiac arrhythmia Hx of esophageal ulcer Benign essential hypertension Vitamin D deficiency Bipolar disorder Alcoholism Obesity (BMI 30-39.9) Anxiety Bipolar 1 disorder Depression Family History Family History Father Esophagus cancer, Onset Age: 63 Mother Breast cancer, Onset Age: 46 Maternal Grandfather Cancer Paternal Aunt Breast cancer Maternal Aunt Breast cancer Son MVA (motor vehicle accident) Surgical History Surgical History History of breast augmentation Hx of nasal septoplasty History of incisional hernia repair Hx of colonoscopy Hx of section Hx of gastrostomy (~04/2002) Hx of endoscopy Social History Social History Household Members: None Housing: House Are you a primary customer care specialist to a significant other at home: No Do you presently have visiting nurse or other home services: No Alcohol intake: current Alcohol intake frequency: holidays/special occasions only Patient Tobacco Use Status: Current everyday Tobacco user Cigarettes Per Day: 5 Years Smoked: rarely- occasional smoker e-Cigarette/Vaping Use: Never Used Second Hand Smoke Exposure: Yes Use of substances other than those prescribed or required for medical reasons: No Have you been hit, kicked, punched, or otherwise hurt by someone within the past year? If so, by whom?: No Are you DNR?: No Advance Directives: No Advance Directives Information Provided: Yes Patient : No service: No Current occupational status: employed Cognitive needs: No Hearing needs: No Vision needs: Yes Meds Allergies Allergy/AdvReac Type Severity Reaction Status Date / Time morphine AdvReac Unknown withdrawals Verified 01/22/25 11:41 /sweats Home Medications ?Medication ?Instructions ?Recorded ?Confirmed ?Last Taken ?Type dicyclomine 10 mg capsule 10 mg PO QID PRN Abdominal 01/23/25 01/23/25 Unknown History Discomfort magnesium oxide 200 mg PO DAILY 01/23/25 01/23/25 Unknown History omega 0-ngo-udq-fish oil 1,200 mg 1 cap PO DAILY 01/23/25 01/23/25 Unknown History (144 mg-216 mg) capsule (Fish Oil) Exam Airway Mallampati Class: II TM Dist: >3cm Neck ROM: Full Loose/Missing/Broken Teeth: No Heart: RRR Lungs: CTA Assessment and Plan Assessment Anesthesia Assessment: Anesthesia Plan Discussed Final Anesthetic Review NPO: Yes ASA Class: II Final Preanesthetic Review: Meds/Allgs Chart Reviewed, Consent Obtained/Reviewed and Anes Risks/Benef Reviewed Patient Risk: Low Procedure Risk: Low Anesthetic Plan Anesthetic Plan: GA Disposition: Standard PACU
[2025-01-25] VITALS (8 sets, daily range): BP systolic 111–125; BP diastolic 66–88; PULSE 61–83; RESP 14–18; TEMP 36.5–36.7; O2SAT 95–100; BMI 32.4
--- NOTE | 2025-01-25 07:34 | MHC.SHP ---
Pre-Procedural Eval Section A - 24 Hr Update-Section A only Date of Service: 01/25/25 The patient is an INPATIENT: No Changes since office visit: No Cold of Flu in the past 2 weeks, No New Medical Problems, No Changes in Medication and No Patient answered all questions The patient has been examined within 24 hours of the surgical procedure. The History & Physical has been completed within 30 days and I have reviewed it.: Yes Section B - Complete if H&P > 30 days Chief Complaint: Endometrial hyperplasia, unspecified Allergies: Allergies Allergy/AdvReac Type Severity Reaction Status Date / Time morphine AdvReac Unknown withdrawals Verified 01/22/25 11:41 /sweats Plan Diagnosis/Plan: Unchanged I have reviewed the history and physical and performed a pertinent physical examination on my patient. No changes have occurred unless specified. Time Spent With Patient Time: Total time managing care of this patient today ____ minutes.
[2025-01-25] MEDS: Lactated Ringers 1,000 ML 100 ML IVCONT (07:37)
--- NOTE | 2025-01-25 09:06 | P.OP_ITS ---
Operative Note Operative Note Date of Service: 01/25/25 Narrative: Preop Diagnosis: Post Menopausal bleeding Operation: Diagnostic Hysteroscopy, Dilataion & Curettage Post Op Diagnosis: Normal endometrial cavity QBL: Minimal Anesthesia: GLMA Surgeon: Jc Hernandez MD Pharmacy Intern: None Complication: None Pathology: Endometrial Scrapings Procedure: The patient was put in the dorsal lithotomy position, scrubbed, and draped in the usual manner. A sterile speculum was inserted in the patient's vagina. The anterior lip of the cervix was grasped with a single tooth tenaculum. The cervix was dilated up to 5 mm, then the scope was inserted in the patient's uterus. Inspection revealed Normal endometrial cavity. The Myosure Reach device was used; the scope was removed from the endometrial cavity , sharp curettings was carried on with minimal to moderate amount of tissues retrieved. At the end of the procedure, all instruments were taken out of the patient uterine and vaginal cavity. The single tooth tenaculum was removed and homeostasis was assured using pressure,. The patient tolerated the procedure well and was transferred to the PACU in a stable condition.
--- NOTE | 2025-01-25 09:06 | PM.OP ---
Brief Operative Note Date of Service: 01/25/25 Pre-op diagnosis: Postmenopausal bleeding Post-op diagnosis: same (Normal endometrial cavity) Procedure: Hysteroscopy D&C Surgeon: Jc Hernandez MD Anesthesia: GLMA Was an Photocomposition Keyboard Operator used for this Procedure?: No Estimated blood loss (mL): 0 Pathology: other (Endometrial Scrapping.) Condition: stable Disposition: PACU
[2025-01-25] MEDS: Acetaminophen 325 MG TABLET 650 MG PO (09:26)
[2025-01-25] MEDS: oxyCODONE HCl Immed Release 5 MG TABLET PO (09:27)
== END 2025-01-25 10:17 | disposition home or self-care (01) ==
PROVIDERS: PCP Internal Medicine; Visit Provider Obstetrics & Gynecology
PROC: 0UDB8ZZ Extraction of Endometrium, Via Natural or Artificial Opening Endoscopic (ICD-10-PCS; CPT 58558; principal; 2025-01-25 08:40)
DX: N85.00 Endometrial hyperplasia, unspecified (principal); N95.0 Postmenopausal bleeding; D25.2 Subserosal leiomyoma of uterus; Z85.3 Personal history of malignant neoplasm of breast; I10 Essential (primary) hypertension; E78.00 Pure hypercholesterolemia, unspecified; F33.0 Major depressive disorder, recurrent, mild; Z93.1 Gastrostomy status; F10.20 Alcohol dependence, uncomplicated; Z79.899 Other long term (current) drug therapy; Z88.5 Allergy status to narcotic agent; Z98.890 Other specified postprocedural states; F17.210 Nicotine dependence, cigarettes, uncomplicated
CPT/HCPCS: 58558; 88305; J1100; J1885; J2003; J2250; J2405; J2704; J3010

== ENCOUNTER → 2025-01-25 06:55 | Outpatient (BNV) | payer OTHER, SELFPAY | PROVIDERS: PCP Internal Medicine; Visit Provider Obstetrics & Gynecology | DX: N95.0 Postmenopausal bleeding (principal) | CPT/HCPCS: 58558 ==

== ENCOUNTER 2025-02-04 15:30 | Outpatient (AMB) | payer OTHER, SELFPAY ==
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
--- OUTSIDE RECORDS SUMMARY | 2025-02-04 17:04 | XMS_ITS | Encounter Summary ---
Author Organization [facility] Address [facility] [place] [address] Care Team Providers Care Cotton Cleaner Name Role Phone Blane Masters MD Primary Care Provider Viktoriava Vishal Young MD Primary Care Provider Dariel galloway Encounter Details Date Type Department Care Team Description 05/13/2018 [facility] Medical Records [address] [place] [address] Jas Sunshine Social History Tobacco Use Types [...] on filedocumented in this encounter Care Teams Cotton Cleaner Relationship Specialty Start Date End Date Blane Masters MD PCP - General Internal Medicine 03/31/18 06/27/24 Vishal Brock MD PCP - General Internal Medicine 06/28/24 documented as of this encounter
--- OUTSIDE RECORDS SUMMARY | 2025-02-04 17:04 | XMS_ITS | Encounter Summary ---
Author Organization [facility] Address [facility] [place] [address] Care Team Providers Care Cutter Head Sharpener Name Role Phone Blane Masters MD Primary Care Provider Unava ilable Vishal Brock MD Primary Care Provider Unava ilable Encounter Details Date Type Department Care Team Description 04/20/2018 [facility]aling [facility] Operator Report Medical Records [address] [place] [address] Kimberly Will, CHRIS Social History Tobacco Use [...] on filedocumented in this encounter Care Teams Cutter Head Sharpener Relationship Specialty Start Date End Date Blane Masters MD PCP - General Internal Medicine 03/31/18 06/27/24 Vishal Brock MD PCP - General Internal Medicine 06/28/24 documented as of this encounter
--- OUTSIDE RECORDS SUMMARY | 2025-02-04 17:04 | XMS_ITS | Clinical Summary ---
Author Organization [address] [facility] Address [address] [place] [address] Phone Care Team Providers Care Frozen Meat Cutter Name Role Phone Vishal Brock MD Primary [...] patient's age to complete this topic Insurance [facility] [employer] ROSARIO RUBIO [id number] Care Teams Frozen Meat Cutter Relationship Specialty Start Date End Date Vishal Brock MD [address] [place] [address] Dr William Harkins [place] PCP - General 06/28/24
--- OUTSIDE RECORDS SUMMARY | 2025-02-04 17:04 | XMS_ITS | Encounter Summary ---
Author Organization [facility] Address [address] [place] [address] Care Team Providers Care Fans Clerk Name Role Phone Paola Ball MD Primary Care Provider Unavail Blane Beasley MD Primary Care Provider Unava Vishal Young MD Primary Care Provider Viktoriava ilgerardo Encounter Details Date Type Department Care Team Description 02/09/2018 Orders Only Adult Medicine [address] [address] Paola Ball MD Normocytic anemia (Primary Dx) [...] - 946 pg/mL 02/10/2018 10:55 AM EDT [facility] 02/09/2018 5:07 PM EDT 02/09/2018 5:07 PM EDT Paola Ball MD LAB [address] * (ABNORMAL) FOLIC ACID (02/09/2018 5:07 PM EDT) FOLATE 18.5(H) 2.8 - 17.0 ng/ml 02/09/2018 8:58 PM EDT [facility] 02/09/2018 5:07 PM EDT 02/09/2018 5:07 PM EDT Paola Ball MD LAB [facility] * (ABNORMAL) IRON/TIBC (02/09/2018 5:07 PM EDT) UNSATURATED IRON BINDING CAP 331 ug/dl 02/10/2018 11:14 AM EDT [facility] TIBC 352 152 - 496 ug/dL 02/10/2018 11:14 AM EDT [facility] IRON 21(L) 40 - 150 ug/dL 02/10/2018 10:47 AM EDT [facility] % FE SATURATION 6(L) 15 - 50 % 8 11:14 AM EDT [facility] 02/09/2018 5:07 PM EDT 02/09/2018 5:07 PM EDT Paola Ball MD LAB [facility] [address] [facility] documented in this encounter Visit Diagnoses Diagnosis Normocytic anemia- Primary Anemia, unspecified documented in this encounter Care Teams Fans Clerk Relationship Specialty Start Date End Date Paola Ball MD PCP - General Internal Medicine 01/27/18 03/30/18 Blane Masters MD PCP - General Internal Medicine 03/31/18 06/27/24 Vishal Brock MD PCP - General Internal Medicine 06/28/24 documented as of this encounter
--- OUTSIDE RECORDS SUMMARY | 2025-02-04 17:04 | XMS_ITS | Continuity of Care Document ---
Author Organization [facility] Address [address] [place] [address] Phone Care Team Providers Care Stylist Assistant Name Role Phone Edward RIVAS FACS RVT [...] Providers Copied on Encounter [facility], [address] [place] [address] Dr [address]Mary [place], [id number], [place] tel:[phone] CVR - [facility] No Information 3 Edward Gardiner. [address], [address], [place], [address], [place]. tel:[phone] Referring Provider: Vishal Brock MD, [address], [place], [address]. tel:[phone] [facility], [address] [place] [address] Dr [address]Mary [place], [id number], [place] tel:[phone] CVR - [facility] Encounter for follow-up examination after completed treatment for conditions other than malignant neoplasmPain in left leg 3 Edward Gardiner. [address], [address], [place], [address], [place]. tel:[phone] Referring Provider: Vishal Brock MD, [address], [place], [address]. tel:[phone] Office/Outpt E&M Established 15 Mins [facility], [address] [place] [address] Dr [address]Suite Mary Alvarez [place], [id number], [place] tel:[phone] [facility] (idiopathic) with other complications of left lower extremity 3 Edward Gardiner. [address], [address], [place], [address], [place]. tel:[phone] Referring Provider: Vishal Brock MD, [address], [place], [address]. tel:[phone] Office/Outpt E&M Established 15 Mins [facility], [address] [place] [address] Dr [address]Mary [place], [id number], [place] tel:[phone] [facility] venous htn w oth comp of bilateral low extrm 3 Edward RIVAS FACS RVT CARRIE Gardiner. [address], [address], [place], [address], [place]. tel:[phone] Referring Provider: Vishal Brock MD, [address], [place], [address]. tel:[phone] [place] [facility], [address] [place] [address] Dr [address]Mary [place], [id number], [place] tel:[phone] CVR - [place] [facility] [place] No Information 3 Edward RIVAS FACS RVT CARRIE Gardiner. [address], [address], [place], [address], [place]. [phone] Referring Provider: Vishal Brock MD, [address], [place], [address]. tel:[phone] [facility], [address] [place] [address] Dr [address]Mary [place], [id number], [place] tel:[phone] CVR - [place] [facility] [place] Encntr for f/u exam aft trtmt for cond oth than malig neoplmVenous insufficiency (chronic) (peripheral) 3 Edward RIVAS FACS RVT CARRIE Gardiner. [address], [address], [place], [address], [place]. [phone] Referring Provider: Vishal Brock MD, [address], [place], [address]. tel:[phone] [facility], [address] [place] [address] [address]Mary [place], [id number], [place] tel:[phone] [facility] - [place] [facility] [place] Venous insufficiency (chronic) (peripheral) 3 Edward RIVAS FACS RVT CARRIE Gardiner. [address], [address], [place], [address], [place]. tel:[phone] Referring Provider: Vishal Brock MD, [address], [place], [address]. tel:[phone] [facility], [address] [place] [address] [address]Mary [place], [id number], [place] tel:[phone] [facility] - [place] [facility] [place] Venous insufficiency (chronic) (peripheral) 3 Edward RIVAS FACS T CARRIE Gardiner. [address], [address], [place], [address], [place]. [phone] Referring Provider: Vishal Brock MD, [address], [place], [address]. tel:[phone] [facility], [address] [place] [address] [address]Mary [place], [id number], [place] tel:[phone] [facility] - [place] [facility] [place] Varicose veins of right low extrm w oth complications 3 Maggy Nguyen . [address], [address], [place], [place], [id number] , [place]. [phone] Referring Provider: Vishal Brock MD, [address], [place], [address]. tel:[phone] [facility], [address] [place] [address] [address]Mary [place], [id number], [place] tel:[phone] [facility] - [place] [facility] [place] Encntr for f/u exam aft trtmt for cond oth than malig neoplmVenous insufficiency (chronic) (peripheral) 3 Edward RIVAS FACS T CARRIE Gardiner. [address], [address], [place], [address], [place]. [phone] Referring Provider: Vishal Brock MD, [address], [place], [address]. tel:[phone] [facility], [address] [place] [address] Dr [address] 1000Mary [place], [id number], [place] tel:[phone] CV[facility] - [place] [facility] [place] Venous insufficiency (chronic) (peripheral) 3 Edward RIVAS FACS T CARRIE Gardiner. [address], [facility] [address], [place], [address], [place]. tel:[phone] Referring Provider: Vishal Brock MD, [address] [place] [address] Dr [address], [place], [address]. tel:[phone] [facility], [address] [place] [address], [place], [id number], [place] tel:[phone] CVR - [facility] Venous insufficiency (chronic) (peripheral) 3 Edward RIVAS FACS T CARRIE Gardiner. [address], [address], [place], [address], [place]. tel:[phone] Referring Provider: Vishal Brock MD, [address] [place] [address] Dr [address], [place], [address]. tel:[phone] Family History Family Member Type Diagnosis Age At Onset No Information Payers Payer name Insurance type Covered green party ID Authorchada tirama(s) Medical Assistance [facility] [id number] Social History Type Description Quantity Date Captured [...]
--- OUTSIDE RECORDS SUMMARY | 2025-02-04 17:04 | XMS_ITS | Encounter Summary ---
Author Organization [facility] Address [facility] [place] [address] Care Team Providers Care Cardiovascular Or Nurse Name Role Phone Blane Masters MD Primary Care Provider Vishal Leon MD Primary Care Provider Dariel galloway Encounter Details Date Type Department Care Team Description 12/12/2023 Orders Only Medical Records [address] [place] [id number] [facility] Social History Tobacco Use Types Packs/Day Years [...] encounter Results * OUTSIDE PLAIN FILM (12/01/2023) [facility] documented in this encounter Visit Diagnoses Not on filedocumented in this encounter Care Teams Cardiovascular Or Nurse Relationship Specialty Start Date End Date Blane Masters MD PCP - General Internal Medicine 03/31/18 06/27/24 Vishal Brock MD PCP - General Internal Medicine 06/28/24 documented as of this encounter
--- OUTSIDE RECORDS SUMMARY | 2025-02-04 17:04 | XMS_ITS | Encounter Summary ---
Author Organization [facility] Address [facility] [place] [address] Care Team Providers Care Supervisor Telephone Answering Service Name Role Phone Paola Ball MD Primary Care Provider Unavail able Blane Masters MD Primary Care Provider Viktoriava Vishal Young MD Primary Care Provider Dariel galloway Encounter Details Date Type Department Care Team Description 02/13/2018 Release of Information Medical Records [address] [place] [id number] Abstract, Provider Social History Tobacco Use Types [...] filedocumented in this encounter Care Teams Supervisor Telephone Answering Service Relationship Specialty Start Date End Date Paola Ball MD PCP - General Internal Medicine 01/27/18 03/30/18 Blane Masters MD PCP - General Internal Medicine 03/31/18 06/27/24 Vishal Brock MD PCP - General Internal Medicine 06/28/24 documented as of this encounter
== END 2025-02-04 16:16 | disposition home or self-care (01) ==
LOC: HO.HOP 15:30
PROVIDERS: PCP Internal Medicine; Visit Provider Clinical Nurse Specialist Psychiatric/Mental Health
DX: F41.1 Generalized anxiety disorder (principal); F33.0 Major depressive disorder, recurrent, mild; F43.21 Adjustment disorder with depressed mood
CPT/HCPCS: 99214

== ENCOUNTER → 2025-02-04 15:30 | Outpatient (BNVA) | payer OTHER, SELFPAY | PROVIDERS: PCP Internal Medicine; Visit Provider Clinical Nurse Specialist Psychiatric/Mental Health | DX: F41.1 Generalized anxiety disorder (principal); F33.0 Major depressive disorder, recurrent, mild; F43.21 Adjustment disorder with depressed mood | CPT/HCPCS: 99212 ==

== ENCOUNTER 2025-02-11 06:49 | Emergency (ER) | payer OTHER, SELFPAY ==
[2025-02-11 06:51] VITALS: BP 123/78; PULSE 91; RESP 18; TEMP 36.1; O2SAT 100; BMI 32.5
--- NOTE | 2025-02-11 06:56 | ECG_ITS ---
Test Reason : CP Blood Pressure : */* mmHG Vent. Rate : 88 BPM Atrial Rate : 88 BPM P-R Int : 140 ms QRS Dur : 70 ms QT Int : 382 ms P-R-T Axes : 39 14 44 degrees QTcB Int : 462 ms Normal sinus rhythm Low voltage QRS Cannot rule out Anterior infarct , age undetermined Abnormal ECG When compared with ECG of 01-Oct-2024 15:10, No significant change was found Referred By: Generic ED Physician Electronically Signed By: BEST PEREZ MD
[2025-02-11 07:15] LABS: MANUAL DIFF FLAG NO
[2025-02-11 07:17] LABS: Basophils Absolute Auto 0.1 X10*3/uL (0.0-0.2); Basophils Percent Auto 1.1 % (0-2); Eosinophils Absolute Auto 0.1 X10*3/uL (0.0-0.4); Eosinophils Percent Auto 2.4 % (0-4); Hematocrit 37.2 % (37.0-47.0); Hemoglobin 12.4 g/dl (12.0-16.0); Imm Gran Abs Auto 0.02 X10*3/uL (0.00-0.03); Imm Gran Pct Auto 0.4 % (0.0-0.4); Lymphocytes Absolute Auto 2.7 X10*3/uL (1.2-4.9); Lymphocytes Percent Auto 49.7 % (20-40); Mean Corpuscular HGB Conc 33.3 g/dl (31.0-35.0); Mean Corpuscular Hemoglobin 27.9 pg (27.0-33.0); Mean Corpuscular Volume 83.6 fL (80.0-98.0); Mean Platelet Volume 9.8 fL (9.4-12.3); Monocytes Absolute Auto 0.4 X10*3/uL (0.1-1.2); Monocytes Percent Auto 6.8 % (2-11); Neutrophils Absolute Auto 2.1 x10*3/uL (2.0-8.3); Neutrophils Percent Auto 39.6 % (45-73); Platelet Count 273 X10*3/uL (160-400); Red Blood Count 4.45 X10*6/uL (4.20-5.50); Red Cell Distribution Width 14.7 % (11.0-16.0); White Blood Count 5.3 X10*3/uL (4.8-10.8)
[2025-02-11 07:30] LABS: Alanine Aminotransferase 21 U/L (0-31); Albumin Level 4.1 g/dL (3.5-5.0); Alkaline Phosphatase 60 U/L (39-117); Anion Gap 14 (12-20); Aspartate Amino Transferase 24 U/L (5-31); Bilirubin Total 0.4 mg/dL (0.0-1.0); Blood Urea Nitrogen 9 mg/dL (9-16); Calcium 9.5 mg/dL (8.4-10.2); Carbon Dioxide 23 mmol/L (22-29); Chloride 107 mmol/L (96-108); Estimated Glomerular Filt Rate > 60; Glucose Random 106 mg/dL (60-115); Potassium 3.8 mmol/L (3.3-5.1); Sodium 140 mmol/L (135-145)
[2025-02-11 07:38] LABS: Troponin-I High Sensitivity < 2.7 ng/L (<3.5-17.0)
[2025-02-11 07:46] VITALS: BP 125/74; PULSE 81; RESP 18; O2SAT 97
--- OUTSIDE RECORDS SUMMARY | 2025-02-11 08:15 | XMS_ITS | Continuity of Care Document ---
Author Organization [facility] Address [address] [place] [address] Phone Care Team Providers Care Turn Laster Name Role Phone Edward RIVAS FACS RVT [...] Providers Copied on Encounter [facility], [address] [place] [address] Dr [address]Mary [place], [id number], [place] tel:[phone] CVR - [facility] No Information 3 Edward Gardiner. [address], [address], [place], [address], [place]. tel:[phone] Referring Provider: Vishal Brock MD, [address], [place], [address]. tel:[phone] [facility], [address] [place] [address] Dr [address]Mary MD, [id number], [place] tel:[phone] CVR - [facility] Encounter for follow-up examination after completed treatment for conditions other than malignant neoplasmPain in left leg 3 Edward Gardiner. [address], [address], [place], [address], [place]. tel:[phone] Referring Provider: Vishal Brock MD, [address], [place], [address]. tel:[phone] Office/Outpt E&M Established 15 Mins [facility], [address] [place] [address] Dr [address]Suite Mary lAvarez MD, [id number], [place] tel:[phone] [facility] Chronic venous hypertension (idiopathic) with other complications of left lower extremity 3 Edward Gardiner. [address], [address], [place], [address], [place]. tel:[phone] Referring Provider: Vishal Brock MD, [address], [place], [address]. tel:[phone] Office/Outpt E&M Established 15 Mins [facility], [address] [place] [address] Dr [address]Mary [place], [id number], [place] tel:[phone] [facility] Chronic venous htn w oth comp of bilateral low extrm 3 Edward RIVAS FACS RVT CARRIE Gardiner. [address], [address], [place], [address], [place]. tel:[phone] Referring Provider: Vishal Brock MD, [address], [place], [address]. tel:[phone] [place] [facility], [address] [place] [address] Dr [address]Mary [place], [id number], [place] tel:[phone] CVR - [place] [facility] [place] No Information 3 Edward RIVAS FACS RVT CARRIE Gardiner. [address], [address], [place], [address], [place]. [phone] Referring Provider: Vishal Brock MD, [address], [place], [address]. tel:[phone] [facility], [address] [place] [address] Dr [address]Mary [place], [id number], [place] tel:[phone] CVR - [place] [facility] [place] Encntr for f/u exam aft trtmt for cond oth than malig neoplmVenous insufficiency (chronic) (peripheral) 3 Edward RIVAS FACS RVT CARRIE Gardiner. [address], [address], [place], [address], [place]. [phone] Referring Provider: Vishal Brock MD, [address], [place], [address]. tel:[phone] [facility], [address] [place] [address] [address]Mary [place], [id number], [place] tel:[phone] CVR - [place] [facility] [place] Venous insufficiency (chronic) (peripheral) 3 Edward RIVAS FACS RVT CARRIE Gardiner. [address], [address], [place], [address], [place]. tel:[phone] Referring Provider: Vishal Brock MD, [address], [place], [address]. tel:[phone] [facility], [address] [place] [address] [address]Mary [place], [id number], [place] tel:[phone] [facility]R - [place] [facility] [place] Venous insufficiency (chronic) (peripheral) 3 Edward RIVAS FACS T CARRIE Gardiner. [address], [address], [place], [address], [place]. [phone] Referring Provider: Vishal Brock MD, [address], [place], [address]. tel:[phone] [facility], [address] [place] [address] [address]Mary [place], [id number], [place] tel:[phone] CVR - [place] [facility] [place] Varicose veins of right low extrm w oth complications 3 Maggy Nguyen . [address], [address], [place], [place], [id number] , [place]. [phone] Referring Provider: Vishal Brock MD, [address], [place], [address]. tel:[phone] [facility], [address] [place] [address] [address]Mary [place], [id number], [place] tel:[phone] CVR - [place] [facility] [place] Encntr for f/u exam aft trtmt for cond oth than malig neoplmVenous insufficiency (chronic) (peripheral) 3 Edward RIVAS FACS T CARRIE Gardiner. [address], [address], [place], [address], [place]. [phone] Referring Provider: Vishal Brock MD, [address], [place], [address]. tel:[phone] [facility], [address] [place] [address] Dr [address] 1000Mary [place], [id number], [place] tel:[phone] CVR - [place] [facility] [place] Venous insufficiency (chronic) (peripheral) 3 Edward RIVAS FACS T CARRIE Gardiner. [address], [facility] [address], [place], [address], [place]. tel:[phone] Referring Provider: Vishal Brock MD, [address] [place] [address] Dr [address], [place], [address]. tel:[phone] [facility], [address], [place], [id number], [place] tel:[phone] CVR - [facility] Venous insufficiency (chronic) (peripheral) 3 Edward RIVAS FACS T CARRIE Gardiner. [address], [address], [place], [address], [place]. tel:[phone] Referring Provider: Vishal Brock MD, [address] [place] [address] Dr [address], [place], [address]. tel:[phone] Family History Family Member Type Diagnosis Age At Onset No Information Payers Payer name Insurance type Covered democrat ID Authorchada tirama(s) Medical Assistance [facility] [id number] Social History Type Description Quantity Date Captured [...]
--- OUTSIDE RECORDS SUMMARY | 2025-02-11 08:15 | XMS_ITS | Clinical Summary ---
Author Organization [address] [facility] Address [address] [place] [address] Phone Care Team Providers Care Whiskey Regauger Name Role Phone Vishal Brock MD Primary [...] patient's age to complete this topic Insurance [facility] PUBLIC PLANS ROSARIO RUBIO [id number] Care Teams Whiskey Regauger Relationship Specialty Start Date End Date Vishal Brock MD [address] [place] [address] Dr William Harkins [place] PCP - General 06/28/24
[2025-02-11 08:21] VITALS: BP 116/63; PULSE 81; RESP 15; TEMP 36.2; O2SAT 96
--- NOTE | 2025-02-11 09:03 | ED_ITS ---
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 At the time was related to alcohol drinking. Patient presented today having feeling of palpitation that lasted about 10 minutes. Did not have any chest pain did not have any loss of consciousness did not have any nausea vomiting. It spontaneously resolved. Patient has been having it about once a day. There is no specific trigger. There is no fever no chills no chest pain there is no recreational drug use there is no alcohol. There is no diaphoresis. On arrival to the emergency department the symptom has already resolved. Patient has an Apple watch it did detect a elevated heart rate but did not record a specific rhythm. Patient is from home. There is no travel history no history of blood clots. There is no chest pain. There is no shortness of breath. There is no diaphoresis. Related Data Home Medications ?Medication ?Instructions ?Recorded ?Confirmed dicyclomine 10 mg capsule 10 mg PO QID PRN Abdominal 01/23/25 02/04/25 Discomfort magnesium oxide 200 mg PO DAILY 01/23/25 02/04/25 omega 9-irz-nal-fish oil 1,200 mg 1 cap PO DAILY 01/23/25 02/04/25 (144 mg-216 mg) capsule (Fish Oil) Previous Rx's ?Medication ?Instructions ?Recorded albuterol sulfate 90 mcg/actuation 2 puff inhalation Q6H PRN 11/04/20 aerosol inhaler (ProAir HFA) shortness of breath or wheezing 30 days #8.5 grams lansoprazole 30 mg capsule,delayed 30 mg PO DAILY #30 caps 08/07/24 release metoprolol succinate 50 mg 50 mg PO DAILY #90 tabs 09/27/24 tablet,extended release 24 hr lorazepam 1 mg tablet 1 mg PO Q12H PRN anxiety 90 days 12/06/24 #180 tabs cholecalciferol (vitamin D3) 25 25 mcg PO DAILY 90 days #90 tabs 01/01/25 mcg (1,000 unit) tablet cyclobenzaprine 10 mg tablet 10 mg PO TID PRN muscle spasm 30 01/15/25 days #90 caps metronidazole 500 mg tablet 500 mg PO BID 7 days #14 tabs 02/04/25 sertraline 50 mg tablet (Zoloft) 75 mg (1.5 x 50 mg) PO BEDTIME #45 02/04/25 tabs zolpidem 5 mg tablet (Ambien) 5 mg PO BEDTIME #30 tabs 02/04/25 Allergies Allergy/AdvReac Type Severity Reaction Status Date / Time morphine AdvReac Unknown withdrawals Verified 02/11/25 06:54 /sweats Review of Systems 2 Review of Systems: Positive palpitation No chest pain or diaphoresis no syncope no near-syncope Yes all other systems are reviewed and are negative [facility] Past Medical History Attestation statement: The following information was validated with the patient. Medical History Irregular bleeding Fibroid Cervical spondylosis Heavy menses History of gastrointestinal stromal tumor (GIST) Wheezing Left foot pain Situational depression Tinea Left shoulder pain Family history of breast cancer Low back pain Paresthesia of left upper extremity Potential exposure to STD Epigastric pain Abdominal bloating At high risk for breast cancer Elbow injury Chest pain Calf pain Umbilical pain Right knee pain Mild anemia Sinus pressure Cough Left ankle pain Problematic vaginal discharge Pain of left great toe Status post fall Pre-op examination Major depressive disorder, recurrent, mild Hot flashes Venous insufficiency of both lower extremities Pure hypercholesterolemia SVT (supraventricular tachycardia) Cardiac arrhythmia Hx of esophageal ulcer Benign essential hypertension Vitamin D deficiency Bipolar disorder Alcoholism Obesity (BMI 30-39.9) Anxiety Bipolar 1 disorder Depression Surgical History History of breast augmentation Hx of nasal septoplasty History of incisional hernia repair Hx of colonoscopy Hx of section Hx of gastrostomy (~04/2002) Hx of endoscopy Family History Family History Father Esophagus cancer, Onset Age: 63 Mother Breast cancer, Onset Age: 46 Maternal Grandfather Cancer Paternal Aunt Breast cancer Maternal Aunt Breast cancer Son MVA (motor vehicle accident) Social History Social History Household Members: None Housing: House Are you a primary patient care director to a significant other at home: No Do you presently have visiting nurse or other home services: No Alcohol intake: former Patient Tobacco Use Status: Current everyday Tobacco user Cigarettes Per Day: 5 Years Smoked: rarely- occasional smoker Smoked in Last 30 Days: Yes e-Cigarette/Vaping Use: Never Used Second Hand Smoke Exposure: Yes Use of substances other than those prescribed or required for medical reasons: No Advance Directives: No Advance Directives Information Provided: Yes Do you have a plan to hurt others: No Plan service: No Current occupational status: employed Cognitive needs: No Hearing needs: No Vision needs: Yes Physical Exam 2 Vital Signs: Vital Signs: Last Vital Signs Temp 97.2 F 02/11/25 08:21 Pulse 81 02/11/25 08:21 Resp 15 02/11/25 08:21 BP 116/63 02/11/25 08:21 Pulse Ox 96 02/11/25 08:21 O2 Del Method Room Air 02/11/25 08:21 BMI result Body Mass Index 32.5 Appearance: Alert. Oriented X3. No acute distress. Eyes: Pupils equal, round and reactive to light. ENT: Pharynx normal. Neck: Normal inspection. Neck supple. No lymph nodes noted. No crepitus CVS: Normal heart rate and rhythm. Pulses normal. Normal S1 and S2 Respiratory: No respiratory distress. Breath sounds normal. No Wheezing. No rales Abdomen: Soft and nontender. No rigidity. No distention. good BS x4 Skin: Skin warm and dry. Normal skin color. Normal skin turgor. Extremities: No lower extremity edema. Neurovascular intact to all extremities. No Lacerations. No Rash Neuro: Oriented X 3. No motor deficit. No sensory deficit. Moving all extermities. No slurred speech Medical Decision Making Medical Decision Making MDM Narrative: Patient well-appearing no acute distress. On arrival patient's heart rate was 80. My interpretation patient's EKG showed a heart rate of 90 NJ QRS QTC normal no acute ST segment elevation. Oxygen saturation was normal. Blood pressure is normal. There is no symptoms currently. Patient well-appearing. Did not have chest pain near syncopal episode with deep palpitation no leg swelling to suggest patient has a pulmonary emboli patient's case discussed with cardiology. Will help patient arrange on an outpatient basis continuing monitoring. Currently in stable condition. Will discharge home patient's cardiac enzyme was negative Differential Diagnosis Differential Diagnoses: The differential diagnosis associated with the presentation includes PE, SVT, atrial fibrillation Admission/Observation Consideration of admission/observation: Escalation of care including admission/observation considered Consult Healthcare Provider Management of the patient was discussed with: Impact Hammer Operator (Cardiology) Lab Data MDM Lab Attestation statement: I reviewed the patient's lab results. 02/11/25 07:09 02/11/25 07:09 Labs: Lab Results 02/11/25 Range/Units 07:09 WBC 5.3 (4.8-10.8) X10*3/uL RBC 4.45 (4.20-5.50) X10*6/uL Hgb 12.4 (12.0-16.0) g/dl Hct 37.2 (37.0-47.0) % MCV 83.6 (80.0-98.0) fL MCH 27.9 (27.0-33.0) pg MCHC 33.3 (31.0-35.0) g/dl RDW 14.7 (11.0-16.0) % Plt Count 273 D (160-400) X10*3/uL MPV 9.8 (9.4-12.3) fL Immature Gran % (Auto) 0.4 (0.0-0.4) % Neut % (Auto) 39.6 L (45-73) % Lymph % (Auto) 49.7 H (20-40) % Evans % (Auto) 6.8 (2-11) % Eos % (Auto) 2.4 (0-4) % Baso % (Auto) 1.1 (0-2) % Lymph # (Auto) 2.7 (1.2-4.9) X10*3/uL Evans # (Auto) 0.4 (0.1-1.2) X10*3/uL Eos # (Auto) 0.1 (0.0-0.4) X10*3/uL Baso # (Auto) 0.1 (0.0-0.2) X10*3/uL Abs Immat Gran (auto) 0.02 (0.00-0.03) X10*3/uL Absolute Neuts (auto) 2.1 (2.0-8.3) x10*3/uL Absolute Nucleated RBC 0.000 (0.0-0.012) X10*3/uL Nucleated RBC % (auto) 0.0 (0.0-0.2) /100WBC Sodium 140 (135-145) mmol/L Potassium 3.8 D (3.3-5.1) mmol/L Chloride 107 (96-108) mmol/L Carbon Dioxide 23 (22-29) mmol/L Anion Gap 14 (12-20) BUN 9 (9-16) mg/dL Creatinine 0.71 (0.5-1.4) mg/dL Estim Creat Clear Calc 103.0 Estimated GFR > 60 Random Glucose 106 (60-115) mg/dL Calcium 9.5 (8.4-10.2) mg/dL Total Bilirubin 0.4 (0.0-1.0) mg/dL AST 24 (5-31) U/L ALT 21 (0-31) U/L Alkaline Phosphatase 60 (39-117) U/L Troponin I High Sens < 2.7 (<3.5-17.0) ng/L Total Protein 7.0 (6.5-8.0) g/dL Albumin 4.1 (3.5-5.0) g/dL Independent Interpretation I performed an independent interpretation of an: EKG (Sinus heart rate is 90 NJ QRS QTC normal no acute ST segment elevation) Independent Historian Clinical information obtained from an independent historian. History obtained from or confirmed by: Friend External Record Review External record reviewed: Inpatient record and Office record Chronic Conditions History of AVNRT Social Determinants Patient?s care significantly limited by Social Determinants of Health including: Problems related to primary support group Discharge Plan Discharge Clinical Impression: Heart palpitations Patient Disposition: Home, Self-Care Instructions: Heart Palpitations (DC) Prescriptions: No Action albuterol sulfate [ProAir HFA] 90 mcg/actuation HFA aerosol inhaler 2 puff inhalation Q6H PRN (Reason: shortness of breath or wheezing) 30 Days Qty: 8.5 1RF lansoprazole 30 mg capsule,delayed release(DR/EC) 30 mg PO DAILY Qty: 30 6RF metoprolol succinate 50 mg tablet extended release 24 hr 50 mg PO DAILY Qty: 90 3RF lorazepam 1 mg tablet 1 mg PO Q12H PRN (Reason: anxiety) 90 Days Qty: 180 0RF cholecalciferol (vitamin D3) 25 mcg (1,000 unit) tablet 25 mcg PO DAILY 90 Days Qty: 90 12RF cyclobenzaprine 10 mg tablet 10 mg PO TID PRN (Reason: muscle spasm) 30 Days Qty: 90 0RF metronidazole 500 mg tablet 500 mg PO BID 7 Days Qty: 14 0RF dicyclomine 10 mg capsule 10 mg PO QID PRN (Reason: Abdominal Discomfort) omega 7-yij-nzf-fish oil [Fish Oil] 1,200 (144-216) mg Capsule 1 cap PO DAILY magnesium oxide 200 mg magnesium Tablet 200 mg PO DAILY sertraline [Zoloft] 50 mg tablet 75 mg PO BEDTIME Qty: 45 2RF zolpidem [Ambien] 5 mg tablet 5 mg PO BEDTIME Qty: 30 0RF Referrals: Wilmar Bills MD [Physician] - 02/13/25 Print Language: Uzbek
[2025-02-11 09:39] VITALS: BP 116/63; PULSE 81; RESP 15; TEMP 36.2; O2SAT 96
== END 2025-02-11 09:41 | disposition home or self-care (01) ==
PROVIDERS: Emergency Provider Emergency Medicine Emergency Medical Services; PCP Internal Medicine
DX: R00.2 Palpitations (principal); I10 Essential (primary) hypertension; E78.00 Pure hypercholesterolemia, unspecified; F17.210 Nicotine dependence, cigarettes, uncomplicated
CPT/HCPCS: 36415; 80053; 84484; 85025; 93005; 99283; 99285

== ENCOUNTER → 2025-02-11 06:56 | Outpatient (BNV) | payer OTHER, SELFPAY | PROVIDERS: Emergency Provider Emergency Medicine Emergency Medical Services; PCP Internal Medicine; Visit Provider Internal Medicine Cardiovascular Disease | DX: R94.31 Abnormal electrocardiogram [ECG] [EKG] (principal); R07.9 Chest pain, unspecified | CPT/HCPCS: 93010 ==

== ENCOUNTER 2025-03-04 15:22 | Outpatient (AMB) | payer OTHER, SELFPAY ==
--- NOTE | 2025-03-04 15:40 | A.OFFPSYCH_ITS ---
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: No Allergies morphine Adverse Reaction (Unknown, Verified 03/25/25 09:59) withdrawals/sweats Medication List - Last Reconciled 03/04/25 by Betty Kumar APRN albuterol sulfate 90 mcg/actuation (ProAir HFA) 2 puffs inhalation Q6H PRN 30 days cholecalciferol (vitamin D3) 25 mcg PO DAILY 90 days cyclobenzaprine 10 mg PO TID PRN 30 days dicyclomine 10 mg PO QID PRN lansoprazole 30 mg PO DAILY lorazepam 1 mg PO Q12H PRN 90 days magnesium oxide 200 mg PO DAILY metoprolol succinate ER 50 mg PO DAILY metronidazole 500 mg PO BID 7 days omega 4-dzk-vli-fish oil 1,200 (144-216) mg (Fish Oil) 1 cap PO DAILY sertraline (Zoloft) 75 mg (1.5 x 50 mg) PO BEDTIME zolpidem (Ambien) 5 mg PO BEDTIME HPI- Psychiatric Chief Complaint: follow up HPI Narrative: pt reports anxiety. sadness, grief related to the loss of her son; court date rapidly approaching; increased anxiety about the process. med compliant; denies SI or Hi; denies self harm, or etoh use; denies side effects Past Psychiatric History: no IPLOC; outp tx with prozac and ativan. hx of heavy alcohol use in past Subjective Subjective Subjective Medication Compliance: Yes Review of Systems Medical Review of Systems: unchanged Mental Status Exam Mental Status Exam Patient Appearance: Well Grooomed Patient Orientation: Person, Place, Time and Situation Level of Consciousness: Awake and Appropriate Patient Behavior: Appropriate and Cooperative Mood Description: Anxious and Sad Affect Description: Anxious and Sad Patient Cognition Impaired: No Ability to Follow Directions: Good Speech Pattern: Clear and Coherent Memory Description: Intact Hallucinations: None Delusions: Not Present Thought Process: Intact and Goal Oriented Thought Content: positive for Intact and positive for Goal Oriented Judgement: Good Assessment and Plan Assessment & Plan (1) DARBY (generalized anxiety disorder): Status: Acute Code(s): F41.1 - Generalized anxiety disorder (2) Major depressive disorder, recurrent, mild: Status: Acute Code(s): F33.0 - Major depressive disorder, recurrent, mild (3) Complicated bereavement: Status: Acute Code(s): F43.21 - Adjustment disorder with depressed mood Medications: Refilled zolpidem (Ambien) 5 mg PO BEDTIME 30 tabs 3RF sertraline (Zoloft) 75 mg (1.5 x 50 mg) PO BEDTIME 45 tabs 2RF Counseling and coordination of Care Pt. Self Management counseling: Maintenance-social rhythm, Mod caffeine/ETOH intake, Nutrition education and improvement, Sleep hygiene and Behavior activation Medication management counseling: Effectiveness, Side effects, Dosing range, Duration, Drug interaction and Adherence Diagnosis and Prognosis Counseling: Accuracy of diagnosis, Prognosis over time, Impact of diagnosis on life functions, Impact of family relationship, Problematic behaviors secondary to diagnosis and Adequacy of current interventions Details: I spent 45 minutes reviewing the record, seeing the patient and documenting in the medical record. Counseling provided to the patient/caregiver as outlined below. Addressed patient/caregiver concerns regarding current medication regime including effective adherence. Addressed patient/caregiver concerns regarding diagnosis and prognosis including accuracy of diagnosis, prognosis over time, impact of diagnosis. Addressed patient/caregiver concerns regarding impact of recent stressors. [facility] Medical History Irregular bleeding Fibroid Cervical spondylosis Heavy menses History of gastrointestinal stromal tumor (GIST) Wheezing Left foot pain Situational depression Tinea Left shoulder pain Family history of breast cancer Low back pain Paresthesia of left upper extremity Potential exposure to STD Epigastric pain Abdominal bloating At high risk for breast cancer Elbow injury Chest pain Calf pain Umbilical pain Right knee pain Mild anemia Sinus pressure Cough Left ankle pain Problematic vaginal discharge Pain of left great toe Status post fall Pre-op examination Major depressive disorder, recurrent, mild Hot flashes Venous insufficiency of both lower extremities Pure hypercholesterolemia SVT (supraventricular tachycardia) Cardiac arrhythmia Hx of esophageal ulcer Benign essential hypertension Vitamin D deficiency Bipolar disorder Alcoholism Obesity (BMI 30-39.9) Anxiety Bipolar 1 disorder Depression Surgical History History of breast augmentation Hx of nasal septoplasty History of incisional hernia repair Hx of colonoscopy Hx of section Hx of gastrostomy (~04/2002) Hx of endoscopy Family History Father Esophagus cancer, Onset Age: 63 Mother Breast cancer, Onset Age: 46 Maternal Grandfather Cancer Paternal Aunt Breast cancer Maternal Aunt Breast cancer Son MVA (motor vehicle accident) Social History Household Members: None Housing: House Are you a primary rn acute care to a significant other at home: No Do you presently have visiting nurse or other home services: No Alcohol intake: former Patient Tobacco Use Status: Current everyday Tobacco user Cigarettes Per Day: 5 Years Smoked: rarely- occasional smoker e-Cigarette/Vaping Use: Never Used Second Hand Smoke Exposure: Yes service: No Current occupational status: employed Cognitive needs: No Hearing needs: No Vision needs: Yes (Glasses) Social History: has good social support; work FT. Substance History: heavy ETOH use in past Trauma History: loss of son this year when he was hit by drunk school bus driver/custodian Coding Level of Care Code Est Pt Level 3 (54088) Therapy 30m w/E&M (99375) Diagnoses DARBY (generalized anxiety disorder) F41.1 Major depressive disorder, recurrent, mild F33.0 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
== END 2025-03-04 16:10 | disposition home or self-care (01) ==
LOC: HO.HOP 15:22
PROVIDERS: PCP Internal Medicine; Visit Provider Clinical Nurse Specialist Psychiatric/Mental Health
DX: F41.1 Generalized anxiety disorder (principal); F33.0 Major depressive disorder, recurrent, mild; F43.21 Adjustment disorder with depressed mood
CPT/HCPCS: 90833; 99213

== ENCOUNTER → 2025-03-04 15:22 | Outpatient (BNVA) | payer OTHER, SELFPAY | PROVIDERS: PCP Internal Medicine; Visit Provider Clinical Nurse Specialist Psychiatric/Mental Health | DX: F41.1 Generalized anxiety disorder (principal); F33.0 Major depressive disorder, recurrent, mild; F43.21 Adjustment disorder with depressed mood | CPT/HCPCS: 99212 ==

== ENCOUNTER 2025-03-15 15:08 | Outpatient (REF) | payer OTHER, SELFPAY ==
[2025-03-15 17:13] LABS: Rheumatoid Factor < 13.0 IU/mL (<15.0)
[2025-03-15 17:54] LABS: Erythrocyte Sedimentation Rate 17 MM/HR (0-20)
[2025-03-16 05:08] LABS: CRP High Sensitivity 1.8 mg/L
[2025-03-19 15:05] LABS: Anti Nuclear Antibody Screen NEGATIVE (NEGATIVE)
[2025-03-20 13:59] LABS: Cyclic Citrullinated Peptide <16 UNITS
== END 2025-03-15 15:09 | disposition home or self-care (01) ==
LOC: HO.LAB 15:08
PROVIDERS: PCP Internal Medicine
DX: M47.812 Spondylosis without myelopathy or radiculopathy, cervical region (principal); M25.511 Pain in right shoulder; M25.512 Pain in left shoulder; F33.0 Major depressive disorder, recurrent, mild; L29.9 Pruritus, unspecified; M25.50 Pain in unspecified joint
CPT/HCPCS: 36415; 85652; 86038; 86141; 86200; 86431; 99212

== ENCOUNTER 2025-03-15 15:08 | Outpatient (AMB) | payer OTHER, SELFPAY ==
[2025-03-15 15:20] VITALS: BP 112/68; PULSE 87; RESP 22; TEMP 37.2; O2SAT 97; BMI 33.0
--- NOTE | 2025-03-15 15:20 | A.OFFPC_ITS ---
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: No Accompanied by: Self / Same As Patient Allergies morphine Adverse Reaction (Unknown, Verified 03/15/25 15:43) withdrawals/sweats Medication List - Last Reconciled 03/15/25 by STEPHANIE Shannon albuterol sulfate 90 mcg/actuation (ProAir HFA) 2 puffs inhalation Q6H PRN 30 days cholecalciferol (vitamin D3) 25 mcg PO DAILY 90 days cyclobenzaprine 10 mg PO TID PRN 30 days dicyclomine 10 mg PO QID PRN lansoprazole 30 mg PO DAILY lorazepam 1 mg PO Q12H PRN 90 days magnesium oxide 200 mg PO DAILY metoprolol succinate ER 50 mg PO DAILY metronidazole 500 mg PO BID PRN omega 0-ima-fkm-fish oil 1,200 (144-216) mg (Fish Oil) 1 cap PO DAILY sertraline (Zoloft) 75 mg (1.5 x 50 mg) PO BEDTIME Tobacco use date assessed: 03/15/25 Dental Screening Dental Screen Date: 03/15/25 Did you have a dental visit in the last 12 months?: Yes Did you have a dental problem in the last 6 months where you did not have access to dental care?: No Was dental information given to patient?: Patient has dentist HPI 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 Brock. She was last seen in office on 12/19/2024 Medical history significant for major depression, GERD, complicated bereavement, bilateral leg cramps, anemia, thoracic spondylosis, bilateral shoulder pain, and right knee pain Patient presenting today with complaints of increased neck pain, bilateral shoulder pain, bilateral knee pains, bilateral leg pain. The patient reports that she is having pain all over. She is aching all over and is unable to get comfortable. She reports that she does have plantar fasciitis in the left foot. She is reporting lower back pain that goes down the left leg. Initially, the patient was going to take some time off from work. 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 Reports that the summer break is almost here, so she is going to try on hold on till the break. The patient has tried muscle relaxers leading to unwanted drowsiness and has a history of meloxicam usage. [id number] Tylenol Arthritis did not significantly alleviate her pain. The possibility of a systemic inflammatory condition was discussed, but there is no formal diagnosis. Reports besting to left lower leg that resulted into a carlos area and itchiness She is also struggling with emotional distress that stemming son's untimely . He was hit by a drunk fence post driver. The court trial pending soon, and this has increased the patient emotional distress. This is part of the reason why the patient wanted to take some time off from work. Ultimately, she realized that she did not want to be at home and needed some distraction which working provides. [facility] Medical History Irregular bleeding Fibroid Cervical spondylosis Heavy menses History of gastrointestinal stromal tumor (GIST) Wheezing Left foot pain Situational depression Tinea Left shoulder pain Family history of breast cancer Low back pain Paresthesia of left upper extremity Potential exposure to STD Epigastric pain Abdominal bloating At high risk for breast cancer Elbow injury Chest pain Calf pain Umbilical pain Right knee pain Mild anemia Sinus pressure Cough Left ankle pain Problematic vaginal discharge Pain of left great toe Status post fall Pre-op examination Major depressive disorder, recurrent, mild Hot flashes Venous insufficiency of both lower extremities Pure hypercholesterolemia SVT (supraventricular tachycardia) Cardiac arrhythmia Hx of esophageal ulcer Benign essential hypertension Vitamin D deficiency Bipolar disorder Alcoholism Obesity (BMI 30-39.9) Anxiety Bipolar 1 disorder Depression Surgical History History of breast augmentation Hx of nasal septoplasty History of incisional hernia repair Hx of colonoscopy Hx of section Hx of gastrostomy (~04/2002) Hx of endoscopy Family History Father Esophagus cancer, Onset Age: 63 Mother Breast cancer, Onset Age: 46 Maternal Grandfather Cancer Paternal Aunt Breast cancer Maternal Aunt Breast cancer Son MVA (motor vehicle accident) Social History Household Members: None Housing: House Are you a primary long term acute care registered nurse to a significant other at home: No Do you presently have visiting nurse or other home services: No Alcohol intake: former Patient Tobacco Use Status: Current everyday Tobacco user Cigarettes Per Day: 5 Years Smoked: rarely- occasional smoker e-Cigarette/Vaping Use: Never Used Second Hand Smoke Exposure: Yes service: No Current occupational status: employed Cognitive needs: No Hearing needs: No Vision needs: Yes (Glasses) Female Reproductive History Menstrual Age of Menarche: 14 Questionnaire PHQ-9 Over the last 2 weeks, how often have you been bothered by any of the following problems? 1. Little interest or pleasure in doing things: several days 2. Feeling down, depressed, or hopeless: several days 3. Trouble falling or staying asleep, or sleeping too much: more than half the days 4. Feeling tired or having little energy: more than half the days 5. Poor appetite or overeating: not at all 6. Feeling bad about yourself - or that you are a failure or have let yourself or your family down: not at all 7. Trouble concentrating on things, such as reading the newspaper or watching television: not at all 8. Moving or speaking so slowly that other people could have noticed. Or the opposite - being so fidgety or restless that you have been moving around a lot more than usual: several days 9. Thoughts that you would be better off or of hurting yourself in some way: not at all Total score: 7 Depression Screening Interpretation: Positive Depression Screening Done: Yes Source: Developed by Drs. Jack Hyde, Bertha Washington, Lon Tijerina and colleagues, with an educational nayeli from [employer]. Thrive Questionnaire Date Thrive assessed: 03/15/25 I am a: Patient What is your living situation today?: I have a steady place to live Within the past 12 months, did the food you bought not last and you didn't have the money to get more?: I choose not to answer this question Within the past 12 months, did you worry whether your food would run out before you got money to buy more?: I choose not to answer this question Do you have trouble paying for medicines?: Yes Do you have trouble getting transportation to medical appointments?: No Do you have trouble paying your heating and electricity bill?: Yes Do you have trouble taking care of your child, family member or friend?: I choose not to answer this question Do you have trouble with day-to-day activities such as bathing, preparing meals, shopping, managing finances, etc.?: Yes Are you currently unemployed and looking for a job?: I choose not to answer this question Are you interested in more education?: Yes THRIVE Score: 1 AUDIT C Alcohol Use Questionnaire (AUDIT-C) 1. How often do you have a drink containing alcohol?: Never Total Score: 0 Score Reviewed/Action Taken: No DARBY-7 AMB Questionnaire DARBY-7 Date DARBY - 7 assessed: 03/15/25 Feeling nervous, anxious, or on edge: 2 = More than half the days Not being able to stop or control worryin = Several days Worrying too much about different things: 1 = Several days Trouble relaxin = More than half the days Being so restless that it is hard to sit still: 0 = Not at all Becoming easily annoyed or irritable: 3 = Nearly every day Feeling afraid as if something awful might happen: 3 = Nearly every day Total DARBY-7 score (0-4 normal; 5-9 mild; 10-14 moderate; 15-21 severe): 12 Source: Developed by Drs. Jack Hyde, Bertha Washington, Lon Tijerina and colleagues, with an educational nayeli from [employer]. Review of Systems Const Denies headache(s) Eyes Denies loss of vision ENT Denies vertigo, Denies dizziness, Denies headache(s), Reports neck pain and Denies sore throat Card Denies chest pain, Denies leg edema and Denies lightheadedness Resp Denies cough, Denies hemoptysis and Denies wheezing Musc Reports back pain, Reports myalgias, Reports arthralgias, Denies joint swelling, Reports neck pain, Denies numbness, Reports radiating pain into limb (left posterior leg) and Denies tingling Neuro Denies vertigo, Denies dizziness, Denies headache(s), Denies loss of vision, Denies numbness and Denies tingling Psych Denies anxiety, Reports depression and Denies panic attacks Jomar/Lymph Denies easy bleeding and Denies easy bruising Aller/Immun Denies wheezing Physical exam (Primary Care) Vital Signs: Last Vital Signs Temp 98.9 F 03/15/25 15:20 Pulse 87 03/15/25 15:20 Resp 22 H 03/15/25 15:20 BP 112/68 03/15/25 15:20 Pulse Ox 97 03/15/25 15:20 Oxygen Delivery Method Room Air 03/15/25 15:20 BMI result Body Mass Index 33.0 Tobacco/Smoking Status: Tobacco use Status Tobacco use date assessed 03/15/25 03/15/25 15:37 Patient Tobacco Use Status Current everyday Tobacco 03/15/25 15:37 Tobacco use type 11/05/24 16:20 e-Cigarette/Vaping Use Never Used 03/15/25 15:37 PHQ-9: PHQ-9 Score PHQ-9: Total score 7 03/17/25 02:39 Depression Screening Interpretation: Positive Thrive Assessment: Date of Thrive Assessment Date Thrive assessed 03/15/25 03/15/25 15:37 Const General: healthy appearing, no acute distress, alert and awake Nutritional Appearance: well nourished Orientation/consciousness: oriented to person, oriented to place and oriented to time HENMT Ears: external ears normal General nose exam: Normal external nose present Mouth: Normal oral and palatal mucosa present Throat: Yes posterior oropharynx normal Eyes Conjunctivae: conjunctivae normal Sclerae: sclerae normal Pupils: Equal, round and reactive pupils present Neck Neck: Yes no lymphadenopathy Thyroid: Thyroid normal Carotids: no bruits Resp Effort & Inspection: normal respiratory effort and not tachypneic Auscultation: no crackles, no rales, no rhonchi and no wheezes Cardio Rate: regular rate Rhythm: regular rhythm Heart sounds: no murmurs and normal S1 and S2 GI Palpation (GI): Soft to palpation, nontender, no hepatomegaly and no splenomegaly Auscultation: normal bowel sounds General: Yes no CVA tenderness Back/Spine/Pelvis Back: no CVA tenderness Cervical Spine: No Cervical spine tenderness Thoracic/Lumbar Spine: lumbar spinal tenderness and No straight leg raise positive Skin General skin exam: no rashes or lesions noted and dry skin Neuro General: oriented to person, oriented to place and oriented to time Cranial nerves: Yes Equal, round and reactive pupils present Gait exam (Neuro): Normal gait present Motor exam (neuro): no tremor noted Extrem Right upper extremity: full ROM and shoulder/upper arm Details: tenderness Left upper extremity: full ROM Right lower extremity: full ROM and knee Details: tenderness; no edema Left lower extremity: full ROM; no edema Psych Mental Status: mental status grossly normal Speech and movement: Normal speech and movement present Affect: normal affect Attitude: cooperative Thought process: Normal thought process present Coding Level of Care Code Est Pt Level 3 (70979) Diagnoses Multiple joint pain M25.50 Cervical spondylosis M47.812 Acute pain of both shoulders M25.511; M25.512 Chronicity: acute Major depressive disorder, recurrent, mild F33.0 Itchy skin L29.9 Time Spent (min) 37 Assessment & Plan Assessment & Plan (1) Multiple joint pain: Code(s): M25.50 - Pain in unspecified joint Category: Medical (2) Cervical spondylosis: Code(s): M47.812 - Spondylosis without myelopathy or radiculopathy, cervical region Category: Medical (3) Bilateral shoulder pain: Code(s): M25.511 - Pain in right shoulder; M25.512 - Pain in left shoulder Category: Medical Qualifiers: Chronicity: acute Qualified Code(s): M25.511 - Pain in right shoulder; M25.512 - Pain in left shoulder (4) Major depressive disorder, recurrent, mild: Code(s): F33.0 - Major depressive disorder, recurrent, mild Category: Medical (5) Itchy skin: Code(s): L29.9 - Pruritus, unspecified Category: Medical Plan A trial of gabapentin is initiated at low doses to address nerve-related pain, advising the patient to start at night due to drowsiness potential. A referral to a bleach plant operator is recommended for further assessment of autoimmune conditions. The continuation of muscle relaxers is dismissed due to adverse drowsiness. Investigations for inflammation through ANTONIO and other markers to be pursued. In case of insect sting itching, use of 1% hydrocortisone is advised. Magnesium supplementation is increased to assist with muscle relaxation. A comprehensive plan including lifestyle and stretching exercises is emphasized, and all prescriptions and referrals are processed. Encouraged CBT, continue sertraline 75 mg at bedtime and lorazepam 1 mg q.12 hours p.r.n. follow up with Psychiatry as scheduled Patient was informed and verbally consented to the use of an ambient scribe for clinic note documentation during this visit. Orders: Orders ANTONIO Reflex Titer and Pattern 03/15/25 M25.50 - Pain in unspecified joint CRP High Sensitivity 03/15/25 M25.50 - Pain in unspecified joint Erythrocyte Sedimentation Rate 03/15/25 M25.50 - Pain in unspecified joint Rheumatoid Factor 03/15/25 M25.50 - Pain in unspecified joint Cyclic Citrullinated Peptide 03/15/25 M25.50 - Pain in unspecified joint Referrals Rheumatology Referral M25.50 - Pain in unspecified joint, R52 - Pain, unspecified Medications: New magnesium oxide 400 mg PO DAILY 30 tabs 3RF gabapentin 100 mg PO TID 30 caps 2RF
== END 2025-03-15 16:16 | disposition home or self-care (01) ==
LOC: HO.HMCH 15:08
PROVIDERS: PCP Internal Medicine
DX: M25.50 Pain in unspecified joint (principal); M47.812 Spondylosis without myelopathy or radiculopathy, cervical region; M25.511 Pain in right shoulder; M25.512 Pain in left shoulder; F33.0 Major depressive disorder, recurrent, mild; L29.9 Pruritus, unspecified

== ENCOUNTER 2025-03-25 09:53 | Outpatient (AMB) | payer OTHER, SELFPAY ==
[2025-03-25 09:56] VITALS: BP 114/72; PULSE 77; BMI 32.4
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
--- OUTSIDE RECORDS SUMMARY | 2025-03-25 10:48 | XMS_ITS | Clinical Summary ---
Author Organization [facility] Address [address] [place] [address] Phone Care Team Providers Care Privacy Compliance Manager Name Role Phone Vishal Brock MD Primary [...] patient's age to complete this topic Insurance [facility] [employer] [place] RUBIO [id number] Care Teams Privacy Compliance Manager Relationship Specialty Start Date End Date Vishal Brock MD [address] [place] [address] Dr William Harkins MA PCP - General 06/28/24
== END 2025-03-25 10:32 | disposition home or self-care (01) ==
LOC: HO.HCS 09:53
PROVIDERS: PCP Internal Medicine; Visit Provider Nurse Practitioner Family
DX: I47.10 Supraventricular tachycardia, unspecified (principal); I10 Essential (primary) hypertension; G47.10 Hypersomnia, unspecified; F10.10 Alcohol abuse, uncomplicated
CPT/HCPCS: 99214; G2211

== ENCOUNTER → 2025-03-25 09:53 | Outpatient (BNVA) | payer OTHER, SELFPAY | PROVIDERS: PCP Internal Medicine; Visit Provider Nurse Practitioner Family | DX: I49.9 Cardiac arrhythmia, unspecified (principal); I47.10 Supraventricular tachycardia, unspecified; I10 Essential (primary) hypertension; G47.10 Hypersomnia, unspecified; F10.10 Alcohol abuse, uncomplicated; N93.9 Abnormal uterine and vaginal bleeding, unspecified; Z80.3 Family history of malignant neoplasm of breast | CPT/HCPCS: 99212 ==

== ENCOUNTER 2025-03-25 10:37 | Outpatient (AMB) | payer OTHER, SELFPAY ==
[2025-03-25 10:57] VITALS: BMI 32.4
--- NOTE | 2025-03-25 10:57 | A.OFFVIS_ITS ---
Vital Signs 03/25/25 10:57 Height 5 ft 6 in Weight 201 lb BMI 32.4 Intake Visit Reasons: post op Allergies morphine Adverse Reaction (Unknown, Verified 03/25/25 09:59) withdrawals/sweats HPI Comments Details: The patient is presenting post hysteroscopy D&C no complaints minimal vaginal bleeding no feverishness chills or abdominal pain. The pathology showed the following: Endometrium, curettage: - Superficial strips and fragments of benign endometrium; no atypia or hyperplasia identified. - Small fragment of squamous epithelium within normal limits. - Abundant blood and fibrin PFSH Medical History Irregular bleeding Fibroid Cervical spondylosis Heavy menses History of gastrointestinal stromal tumor (GIST) Wheezing Left foot pain Situational depression Tinea Left shoulder pain Family history of breast cancer Low back pain Paresthesia of left upper extremity Potential exposure to STD Epigastric pain Abdominal bloating At high risk for breast cancer Elbow injury Chest pain Calf pain Umbilical pain Right knee pain Mild anemia Sinus pressure Cough Left ankle pain Problematic vaginal discharge Pain of left great toe Status post fall Pre-op examination Major depressive disorder, recurrent, mild Hot flashes Venous insufficiency of both lower extremities Pure hypercholesterolemia SVT (supraventricular tachycardia) Cardiac arrhythmia Hx of esophageal ulcer Benign essential hypertension Vitamin D deficiency Bipolar disorder Alcoholism Obesity (BMI 30-39.9) Anxiety Bipolar 1 disorder Depression Surgical History History of breast augmentation Hx of nasal septoplasty History of incisional hernia repair Hx of colonoscopy Hx of section Hx of gastrostomy (~04/2002) Hx of endoscopy Family History Father Esophagus cancer, Onset Age: 63 Mother Breast cancer, Onset Age: 46 Maternal Grandfather Cancer Paternal Aunt Breast cancer Maternal Aunt Breast cancer Son MVA (motor vehicle accident) Social History Household Members: None Housing: House Are you a primary animal care service worker to a significant other at home: No Do you presently have visiting nurse or other home services: No Alcohol intake: former Patient Tobacco Use Status: Current everyday Tobacco user Cigarettes Per Day: 5 Years Smoked: rarely- occasional smoker e-Cigarette/Vaping Use: Never Used Second Hand Smoke Exposure: Yes service: No Current occupational status: employed Cognitive needs: No Hearing needs: No Vision needs: Yes (Glasses) Female Reproductive History Menstrual Age of Menarche: 14 Review of Systems Const All systems reviewed & are unremarkable except as noted in HPI and below Reports as per HPI and Reports no additional complaints GI Reports no additional complaints Reports no additional complaints Physical Exam Vital Signs: BMI result Body Mass Index 32.4 Assessment & Plan Assessment & Plan (1) Abnormal uterine bleeding (AUB): Code(s): N93.9 - Abnormal uterine and vaginal bleeding, unspecified Category: Medical Plan: Discussed with the patient the results of the EMB pathology, it is sensitivity, specificity, false-positive false-negative rate in detecting endometrial pathology including endometrial hyperplasia and/or malignancy done and options of treatment including expectant management, progesterone, Mirena IUD. All pros, cons, risks and benefits if each option was discussed with the patient and the patient decided to proceed with expectant management. Instructions given the patient to call in case abnormal uterine bleeding recurrs. All questions answered the patient verbalized understanding. Coding Level of Care Code Est Pt Level 3 (89079) Diagnoses Abnormal uterine bleeding (AUB) N93.9
== END 2025-03-25 11:30 | disposition home or self-care (01) ==
LOC: HO.HWS 10:37
PROVIDERS: PCP Internal Medicine; Visit Provider Obstetrics & Gynecology
DX: N93.9 Abnormal uterine and vaginal bleeding, unspecified (principal)
CPT/HCPCS: 99213

== ENCOUNTER 2025-04-02 15:26 | Outpatient (AMB) | payer OTHER, SELFPAY ==
--- OUTSIDE RECORDS SUMMARY | 2023-08-19 09:27 | XMS_ITS | Continuity of Care Document ---
Author Organization [facility] Address [address] [place] [address] Phone Care Team Providers Care Peanut Separator Name Role Phone Edward RIVAS FACS RVT [...] Providers Copied on Encounter [facility], [address] [place] [address] Dr [address] 1000Mary [place], [id number], [place] tel:[phone] CVR - [facility] No Information 3 Edward Gardiner. [address] [facility], [address], [place], [address], [place]. tel:[phone] Referring Provider: Vishal Brock MD, [address] [facility] [address], [place], [address]. tel:[phone] [facility], [address] [place] [address] Dr [address] 1000Mary MD, [id number], [place] tel:[phone] CVR - [facility] Encounter for follow-up examination after completed treatment for conditions other than malignant neoplasmPain in left leg 3 Edward Gardiner. [address] [facility], [address], [place], [address], [place]. tel:[phone] Referring Provider: Vishal Brock MD, [address] [facility] [address], [place], [address]. tel:[phone] Office/Outpt E&M Established 15 Mins [facility], [address] [place] [address] Dr [address]Suite Mary Alvarez MD, [id number], [place] tel:[phone] [facility] hypertension (idiopathic) with other complications of left lower extremity 3 Edward Gardiner. [address] [facility], [address], [place], [address], [place]. tel:[phone] Referring Provider: Vishal Brock MD, [address] [facility] [address], [place], [address]. tel:[phone] Office/Outpt E&M Established 15 Mins [facility], [address] [place] [address] Dr [address] 1000Mary MD, [id number], [place] tel:[phone] [facility] venous htn w oth comp of bilateral low extrm 3 Edward RIVAS FACS RVT CARRIE Gardiner. [address] [place], [address], [place], [address], [place]. tel:[phone] Referring Provider: Vishal Brock MD, [address] [facility] [address], [place], [address]. tel:[phone] [place] [facility], [address] [place] [address] Dr [address] 1000Mary MD, [id number], [place] tel:[phone] [facility] - [place] No Information 3 Edward RIVAS FACS RVT CARRIE Gardiner. [address] [facility], [address], [place], [address], [place]. [phone] Referring Provider: Vishal Brock MD, [address] [facility] [address], [place], [address]. tel:[phone] [facility], [address] [place] [address] Dr [address] 1000Mary [place], [id number], [place] tel:[phone] [facility] - [place] [facility] [place] Encntr for f/u exam aft trtmt for cond oth than malig neoplmVenous insufficiency (chronic) (peripheral) 3 Edward RIVAS FACS RVT CARRIE Gardiner. [address] [facility], [address], [place], [address], [place]. [phone] Referring Provider: Vishal Brock MD, [address] [facility] [address], [place], [address]. tel:[phone] [facility], [address] [place] [address] [address]Suite 1000Mary [place], [id number], [place] tel:[phone] [facility] - [place] Venous insufficiency (chronic) (peripheral) 3 Edward RIVAS FACS RVT CARRIE Gardiner. [address] [facility], [address], [place], [address], [place]. tel:[phone] Referring Provider: Vishal Brock MD, [address] [facility] [address] [facility] [address], [place], [address]. tel:[phone] [facility], [address] [place] [address] [address]Suite 1000Mary MD, [id number], [place] tel:[phone] [facility] - [place] [facility] [place] Venous insufficiency (chronic) (peripheral) 3 Edward RIVAS FACS T CARRIE Gardiner. [address] [facility], [address], [place], [address], [place]. [phone] Referring Provider: Vishal Brock MD, [address] [facility] [address], [place], [address]. 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 [address] [facility], [address], [place], [place], [address] , [place]. [phone] Referring Provider: Vishal Brock MD, [address] [facility] [address], [place], [address]. [phone] [facility], [address] [place] [address] [address]Suite 1000Mary [place], [id number], [place] tel:[phone] [facility] - [place] Encntr for f/u exam aft trtmt for cond oth than malig neoplmVenous insufficiency (chronic) (peripheral) 3 Edward RIVAS FACS T CARRIE Gardiner. [address] [facility], [address], [place], [address], [place]. [phone] Referring Provider: Vishal Brock MD, [address], [place], [address]. tel:[phone] [facility], [address] [place] [address] Dr [address]Suite 1000Mary MD, [id number], [place] tel:[phone] [facility] - [place] Venous insufficiency (chronic) (peripheral) 3 Edward RIVAS FACS T CARRIE Gardiner. [address] [facility], [facility] [address], [place], [address], [place]. tel:[phone] Referring Provider: Vishal Brock MD, [address] [place] [address] Dr [address], [place], [address]. tel:[phone] [facility], [address], [place], [id number], [place] tel:[phone] CVR - [facility] Venous insufficiency (chronic) (peripheral) 3 Edward RIVAS FACS T CARRIE Gardiner. [address] [facility], [address], [place], [address], [place]. tel:[phone] Referring Provider: Vishal Brock MD, [address] [place] [address] Dr [address], [place], [address]. tel:[phone] Family History Family Member Type Diagnosis Age At Onset No Information Payers Payer name Insurance type Covered constitution party ID Authorchada tirama(s) Medical Assistance [facility] [id number] Social History Type Description Quantity Date Captured [...]
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
--- OUTSIDE RECORDS SUMMARY | 2025-04-02 16:12 | XMS_ITS | Patient Health Record ---
Author Organization [facility] Mirnawei Ybarra Address [address] [place] [address] Care Team Providers Care Computing Services Director Name Role Phone Jeffrey RIVAS, Олег Primary Care Provider Albert Clement Unavailable [phone] Allergies Allergen (clinical drug ingredient) Drug/Non Drug Allergy documented on EMR Reaction Allergy Type Onset Date Status morphine Morphine Unknown Drug Allergy Active Reason For Referral No Information Medications Medication SIG (Take, Route, Fr equency, Duration) Notes Start Date End Date Status Ativan 1 tablet at bedtime as needed Orally Once a day Active Omeprazole 10 MG 2 capsules Orally On ce a day; Duration: 30 day(s) Active Piroxicam 20 MG 1 capsule with food Orally Once a day; Duration: 30 day(s) 07/09/2013 Active PROzac 1 capsule in the mor hayes Orally Once a day; Duration: 30 day(s) Active Problems Problem Type SNOMED Code ICD Code Onset Dates Problem Status W/U Status Risk Notes Problem Bursitis (72807703) Bursitis (727.3) Active confirmed Problem Myositis (88453141) Myositis (729.1) Active confirmed Problem Pain in limb (47070260) Pain in Limb (729.5) Active confirmed Problem Plantar fasciitis (972260179) Plantar Fasciitis (728.71) Active confirmed Plan Of Treatment Pending Test Test Name Order Date X ray : Foot, left 2V 07/09/2013 X ray : Foot, right 2V 07/09/2013 Insurance Providers Payer Name Payer Address Payer Phone Subscriber Number Group Number Insured Name Patient Relationship to Insured Coverage Start Date Coverage End Date [facility] [address] [place] [address] [id number] Monserrat Moore Self - patient is the insured Medical (General) History Medical History History ICD Code anxiety Hiatal hernia reflux chicken pox Surgical History Surgery Date(Month/Year) tumor removal from esophagus 2005 section 1994, 1997
--- OUTSIDE RECORDS SUMMARY | 2025-04-02 16:12 | XMS_ITS | Clinical Summary ---
Author Organization [address] [facility] Address [address] [place] [address] Phone Care Team Providers Care Spare Hand Carding Name Role Phone Vishal Brock MD Primary [...] patient's age to complete this topic Insurance [facility] [employer] ROSARIO RUBIO [id number] Care Teams Spare Hand Carding Relationship Specialty Start Date End Date Vishal Brock MD [address] [place] [address] Dr William Harkins [place] PCP - General 06/28/24
--- OUTSIDE RECORDS SUMMARY | 2025-04-02 16:12 | XMS_ITS | Patient Health Record ---
Author Organization [facility] Address [address] [place] [address] Care Team Providers Care Heel Washer Stringing Machine Operator Name Role Phone Олег Murphy MD Primary Care Provider Jack Kim [phone] Reason For Referral No Information Plan Of Treatment No Information Insurance Providers Payer Name Payer Address Payer Phone Subscriber Number Group Number Insured Name Patient Relationship to Insured Coverage Start Date Coverage End Date [facility] [address] [place] [phone] [id number] SARA PAGE Self - patient is the insured
== END 2025-04-02 16:06 | disposition home or self-care (01) ==
LOC: HO.HOP 15:26
PROVIDERS: PCP Internal Medicine; Visit Provider Clinical Nurse Specialist Psychiatric/Mental Health
DX: F41.1 Generalized anxiety disorder (principal); F33.0 Major depressive disorder, recurrent, mild; F43.21 Adjustment disorder with depressed mood
CPT/HCPCS: 90833; 99214

== ENCOUNTER → 2025-04-02 15:26 | Outpatient (BNVA) | payer OTHER, SELFPAY | PROVIDERS: PCP Internal Medicine; Visit Provider Clinical Nurse Specialist Psychiatric/Mental Health | DX: F41.1 Generalized anxiety disorder (principal); F33.0 Major depressive disorder, recurrent, mild; F43.21 Adjustment disorder with depressed mood | CPT/HCPCS: 99212 ==

== ENCOUNTER 2025-04-07 15:43 | Emergency (ER) | payer OTHER, SELFPAY ==
--- OUTSIDE RECORDS SUMMARY | 2023-08-19 09:27 | XMS_ITS | Continuity of Care Document ---
Author Organization [facility] Address [address] MD [place] [address] Phone Care Team Providers Care Medicine Worker Name Role Phone Edward RIVAS FACS RVT [...] Providers Copied on Encounter [facility], [address] [place] [address] Dr [address] 1000Mary [place], [id number], [place] tel:[phone] [facility] - [facility] No Information 3 Edward Gardiner. [address] [facility], [address], [place], [address], [place]. tel:[phone] Referring Provider: Vishal Brock MD, [address], [place], [address]. tel:[phone] [facility], [address] [place] [address] Dr [address]Suite 1000Mary MD, [id number], [place] tel:[phone] [facility]R - [facility] Encounter for follow-up examination after completed treatment for conditions other than malignant neoplasmPain in left leg 3 Edward Gardiner. [address] [facility] [facility], [address], [place], [address], [place]. tel:[phone] Referring Provider: Vishal Brock MD, [address], [place], [address]. tel:[phone] Office/Outpt E&M Established 15 Mins [facility], [address] [place] [address] Dr [address]Suite Mary Alvarez MD, [id number], [place] tel:[phone] [facility] (idiopathic) with other complications of left lower extremity 3 Edward Gardiner. [address] [facility], [address], [place], [address], [place]. tel:[phone] Referring Provider: Vishal Brock MD, [address], [place], [address]. tel:[phone] Office/Outpt E&M Established 15 Mins [facility], [address] [place] [address] Dr [address] 1000Mary MD, [id number], [place] tel:[phone] [facility]tn w oth comp of bilateral low extrm 3 Edward RIVAS FACS RVT CARRIE Gardiner. [address], [address], [place], [address], [place]. tel:[phone] Referring Provider: Vishal Brock MD, [address], [place], [address]. tel:[phone] [place] [facility], [address] [place] [address] Dr [address]Suite 1000Mary MD, [id number], [place] tel:[phone] CV[facility] - [place] [facility] [place] No Information 3 Edward RIVAS FACS RVT CARRIE Gardiner. [address] [facility] [facility], [address], [place], [address], [place]. [phone] Referring Provider: Vishal Brock MD, [address], [place], [address]. tel:[phone] [facility], [address] [place] [address] Dr [address]Suite 1000Mary [place], [id number], [place] tel:[phone] CVR - [place] [facility] [place] Encntr for f/u exam aft trtmt for cond oth than malig neoplmVenous insufficiency (chronic) (peripheral) 3 Edward RIVAS FACS RVT CARRIE Gardiner. [address] [facility], [address], [place], [address], [place]. [phone] Referring Provider: Vishal Brock MD, [address], [place], [address]. tel:[phone] [facility], [address] [place] [address] [address]Suite 1000Mary MD, [id number], [place] tel:[phone] CVR - [place] [facility] [place] Venous insufficiency (chronic) (peripheral) 3 Edward RIVAS FACS RVT CARRIE Gardiner. [address] [facility], [address], [place], [address], [place]. tel:[phone] Referring Provider: Vishal Brock MD, [address], [place], [address]. tel:[phone] [facility], [address] [place] [address] [address]Suite 1000Mary [place], [id number], [place] tel:[phone] [facility] - [place] Venous insufficiency (chronic) (peripheral) 3 Edward RIVAS FACS T CARRIE Gardiner. [address] [facility] [facility], [address], [place], [address], [place]. [phone] Referring Provider: Vishal Brock MD, [address], [place], [address]. 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 [address] [facility], [address], [place], [place], [id number] , [place]. [phone] Referring Provider: Vishal Brock MD, [address], [place], [address]. tel:[phone] [facility], [address] [place] [address] [address]Suite 1000Mary [place], [id number], [place] tel:[phone] CVR - [place] [facility] [place] Encntr for f/u exam aft trtmt for cond oth than malig neoplmVenous insufficiency (chronic) (peripheral) 3 Edward RIVAS FACS T CARRIE Gardiner. [address] [facility], [address], [place], [address], [place]. [phone] Referring Provider: Vishal Brock MD, [address], [place], [address]. tel:[phone] [facility], [address] [place] [address] Dr [address] 1000Suite 1000Mary MD, [id number], [place] tel:[phone] CVR - [place] Venous insufficiency (chronic) (peripheral) 3 Edward RIVAS FACS T CARRIE Gardiner. [address] [facility], [facility] [address], [place], [address], [place]. tel:[phone] Referring Provider: Vishal Brock MD, [address] [place] [address] Dr [address], [place], [address]. tel:[phone] [facility], [address], [place], [id number], [place] tel:[phone] CVR - [facility] Venous insufficiency (chronic) (peripheral) 3 Edward RIVAS FACS T CARRIE Gardiner. [address] [facility], [address], [place], [address], [place]. tel:[phone] Referring Provider: Vishal Brock MD, [address] [place] [address] Dr [address], [place], [address]. tel:[phone] Family History Family Member Type Diagnosis Age At Onset No Information Payers Payer name Insurance type Covered alliance party ID Authorchada tirama(s) Medical Assistance [facility] [id number] Social History Type Description Quantity Date Captured [...]
--- NOTE | 2025-04-07 | ECG_ITS ---
Test Reason : palpitations Blood Pressure : */* mmHG Vent. Rate : 87 BPM Atrial Rate : 87 BPM P-R Int : 156 ms QRS Dur : 78 ms QT Int : 368 ms P-R-T Axes : 50 26 50 degrees QTcB Int : 442 ms Normal sinus rhythm Normal ECG When compared with ECG of 11-Feb-2025 07:00, No significant change was found Referred By: Daniel Cedeño Electronically Signed By: Dennis Manuel
[2025-04-07 15:49] VITALS: BP 125/74; PULSE 105; RESP 16; TEMP 36.4; O2SAT 100
--- NOTE | 2025-04-07 15:50 | ED.PSYCH ---
HPI - Psych General Chief Complaint: Psychiatric Symptoms Stated Complaint: psych check Time Seen by Provider: 04/07/25 16:00 Source: patient Limitations: no limitations History of Present Illness HPI Narrative: 54-year-old female who has a history of depression, presents for evaluation of feeling overwhelmed as well as suicide ideation. Patient states that her son was killed by a drunk marine engine driver almost 1 year ago and she was reminiscing about the incident. Patient states she drank a few beers to help cope and states I just want to be with him . Patient states she denies wanting to but needs a break. she denies any physical complaints at this time. No chest pain or shortness of breath. She does also admit to taking Ativan which is prescribed to her. She denies any other illicit drug use. She denies any homicidal ideation. No auditory or visual hallucinations. Related Data Home Medications ?Medication ?Instructions ?Recorded ?Confirmed dicyclomine 10 mg capsule 10 mg PO QID PRN Abdominal 01/23/25 04/08/25 Discomfort omega 7-jpw-nqg-fish oil 1,200 mg 1 cap PO DAILY 01/23/25 04/08/25 (144 mg-216 mg) capsule (Fish Oil) amoxicillin 500 mg capsule 500 mg PO TID 03/25/25 04/08/25 Previous Rx's ?Medication ?Instructions ?Recorded albuterol sulfate 90 mcg/actuation 2 puff inhalation Q6H PRN 11/04/20 aerosol inhaler (ProAir HFA) shortness of breath or wheezing 30 days #8.5 grams metoprolol succinate 50 mg 50 mg PO DAILY #90 tabs 09/27/24 tablet,extended release 24 hr cholecalciferol (vitamin D3) 25 25 mcg PO DAILY 90 days #90 tabs 01/01/25 mcg (1,000 unit) tablet cyclobenzaprine 10 mg tablet 10 mg PO TID PRN muscle spasm 30 03/01/25 days #90 caps magnesium oxide 400 mg (241.3 mg 400 mg PO DAILY #30 tabs 03/15/25 magnesium) tablet lansoprazole 30 mg capsule,delayed 30 mg PO DAILY #30 caps 03/25/25 release lorazepam 1 mg tablet 1 mg PO Q12H PRN anxiety 90 days 03/27/25 #180 tabs sertraline 50 mg tablet (Zoloft) 100 mg (2 x 50 mg) PO BEDTIME #60 04/02/25 tabs naltrexone 50 mg tablet 25 mg (1/2 x 50 mg) PO DAILY #30 04/08/25 tabs Allergies Allergy/AdvReac Type Severity Reaction Status Date / Time morphine AdvReac Unknown withdrawals Verified 04/07/25 15:53 /sweats Review of Systems Review of Systems: Yes all other systems are reviewed and are negative Gastrointestinal: Gastrointestinal: Denies abdominal pain Psychiatric: Psychiatric: Reports anxiety, Reports depression and Reports hopelessness PMFSH Past Medical History Medical History Irregular bleeding Fibroid Cervical spondylosis Heavy menses History of gastrointestinal stromal tumor (GIST) Wheezing Left foot pain Situational depression Tinea Left shoulder pain Family history of breast cancer Low back pain Paresthesia of left upper extremity Potential exposure to STD Epigastric pain Abdominal bloating At high risk for breast cancer Elbow injury Chest pain Calf pain Umbilical pain Right knee pain Mild anemia Sinus pressure Cough Left ankle pain Problematic vaginal discharge Pain of left great toe Status post fall Pre-op examination Major depressive disorder, recurrent, mild Hot flashes Venous insufficiency of both lower extremities Pure hypercholesterolemia SVT (supraventricular tachycardia) Cardiac arrhythmia Hx of esophageal ulcer Benign essential hypertension Vitamin D deficiency Bipolar disorder Alcoholism Obesity (BMI 30-39.9) Anxiety Bipolar 1 disorder Depression Surgical History History of breast augmentation Hx of nasal septoplasty History of incisional hernia repair Hx of colonoscopy Hx of section Hx of gastrostomy (~04/2002) Hx of endoscopy Family History Family History Father Esophagus cancer, Onset Age: 63 Mother Breast cancer, Onset Age: 46 Maternal Grandfather Cancer Paternal Aunt Breast cancer Maternal Aunt Breast cancer Son MVA (motor vehicle accident) Social History Social History Household Members: None Housing: House Are you a primary career development facilitator to a significant other at home: No Do you presently have visiting nurse or other home services: No Alcohol intake: former Patient Tobacco Use Status: Current everyday Tobacco user Cigarettes Per Day: 5 Years Smoked: rarely- occasional smoker e-Cigarette/Vaping Use: Never Used Second Hand Smoke Exposure: Yes service: No Current occupational status: employed Cognitive needs: No Hearing needs: No Vision needs: Yes (Glasses) Physical Exam Vital Signs: Vital Signs: Last Vital Signs Temp 97.6 F 04/07/25 21:59 Pulse 105 H 04/07/25 21:59 Resp 16 04/07/25 21:59 BP 125/74 04/07/25 21:59 Pulse Ox 100 04/07/25 21:59 O2 Del Method Room Air 04/07/25 21:59 BMI result Body Mass Index 30.0 Const: Other: Tearful General: alert Orientation/consciousness: patient oriented x3 Resp: Other: lung sounds clear throughout Cardio: Rate: regular rate Rhythm: regular rhythm Neuro: General: patient oriented x3 Psych: Attitude: cooperative Thought content: Suicidality present and no homicidality Course Course Course Narrative: This is a rapid medical exam performed by Geovanni Natarajan NP: Additional HPI, ROS, PE not included below will be deferred to primary provider. Patient is a 54-year-old female presenting to the ED with complaint of worsening depression and vague SI. States son one year ago in an MVC, they are currently going through court proceedings related to his estate and it is bringing up memories. States she hasn't drink since he but admits to drinking today which she feels exacerbated her feelings. States I think about being with him but I don't think I would do anything to hurt myself because I have other sons. Sees Silvia Navarrete in the community. Plan: med clearance, CARE team evaluation Reevaluation(s) Reevaluation #1: April 07, 2025, 6:00 p.m. patient resting comfortably at this time. Awaiting evaluation. April 07, 2025, 8:30 p.m. patient resting comfortably at this time. Awaiting behavioral health evaluation. Reevaluation #2: Spoke with Mariella from the care team. She feels the patient is safe to go home. She has a psychiatric nurse practitioner who cares for her underlying psychiatric illness. The patient is not suicidal. She continues to struggle with the of her son, she still is having to attend court dates etc.. Today she had a few drinks, this triggered memories for her. Time: 21:17 Medications Administered Discontinued Medications Generic Name Dose Route Start Last Admin Trade Name Freq PRN Reason Stop Dose Admin Nicotine 21 mg 04/07/25 16:39 04/07/25 16:43 Nicotine 21 Mg Patch.Td24 TRANSDERMA 04/07/25 16:40 21 mg ONCE ONE Administration Medical Decision Making Medical Decision Making [facility] Narrative: 54-year-old female with vague suicide ideation, increased depression and alcohol use. Patient will be seen by behavioral health team. No evidence of alcohol withdrawal. Differential Diagnosis Differential Diagnoses: The differential diagnosis associated with the presentation includes Depression PTSD Acute psychosis Anxiety Admission/Observation Consideration of admission/observation: Escalation of care including admission/observation considered Lab Data [facility] Lab Attestation statement: I reviewed the patient's lab results. 04/07/25 16:37 04/07/25 16:37 Labs: Lab Results 04/07/25 Range/Units 16:37 WBC 6.8 (4.8-10.8) X10*3/uL RBC 4.13 L (4.20-5.50) X10*6/uL Hgb 11.7 L (12.0-16.0) g/dl Hct 34.5 L (37.0-47.0) % MCV 83.5 (80.0-98.0) fL MCH 28.3 (27.0-33.0) pg MCHC 33.9 (31.0-35.0) g/dl RDW 15.0 (11.0-16.0) % Plt Count 278 (160-400) X10*3/uL MPV 9.3 L (9.4-12.3) fL Immature Gran % (Auto) 0.1 (0.0-0.4) % Neut % (Auto) 44.3 L (45-73) % Lymph % (Auto) 42.6 H (20-40) % [place] % (Auto) 9.4 (2-11) % Eos % (Auto) 2.4 (0-4) % Baso % (Auto) 1.2 (0-2) % Lymph # (Auto) 2.9 (1.2-4.9) X10*3/uL [place] # (Auto) 0.6 (0.1-1.2) X10*3/uL Eos # (Auto) 0.2 (0.0-0.4) X10*3/uL Baso # (Auto) 0.1 (0.0-0.2) X10*3/uL Abs Immat Gran (auto) 0.01 (0.00-0.03) X10*3/uL Absolute Neuts (auto) 3.0 (2.0-8.3) x10*3/uL Absolute Nucleated RBC 0.000 (0.0-0.012) X10*3/uL Nucleated RBC % (auto) 0.0 (0.0-0.2) /100WBC Sodium 140 (135-145) mmol/L Potassium 4.0 (3.3-5.1) mmol/L Chloride 108 (96-108) mmol/L Carbon Dioxide 22 (22-29) mmol/L Anion Gap 14 (12-20) BUN 5 L (9-16) mg/dL Creatinine 0.60 (0.5-1.4) mg/dL Estim Creat Clear Calc 113.1 Estimated GFR > 60 Random Glucose 89 (60-115) mg/dL Calcium 9.0 (8.4-10.2) mg/dL Magnesium 2.1 (1.6-2.6) mg/dL Total Bilirubin 0.1 (0.0-1.0) mg/dL AST 22 (5-31) U/L ALT 21 (0-31) U/L Alkaline Phosphatase 59 (39-117) U/L Total Protein 6.6 (6.5-8.0) g/dL Albumin 4.1 (3.5-5.0) g/dL Urine Color Yellow Urine Appearance Clear Urine pH 6.0 (5.0-9.0) Ur Specific Ary <= 1.005 (1.005-1.025) Urine Protein Negative (Neg-Trace) mg/dL Urine Glucose (UA) Negative (Negative) mg/dL Urine Ketones Negative (Negative) mg/dL Urine Blood Trace H (Negative) Urine Nitrite Negative (Negative) Ur Leukocyte Esterase Negative (Negative) Urine RBC 0-2 (0-2) /HPF Urine WBC 0-5 (0-5) /HPF Ur Squamous Epith Cells 0-2 (0-2) /HPF Urine Bacteria None Seen (None Seen) Hyaline Casts 0-2 (0-2) /LPF Urine Opiates Screen Not Detected (Not Detect) Ur Buprenorphine Scrn Not Detected (Not Detect) ng/mL Ur Oxycodone Screen Not Detected (Not Detect) ng/mL Urine Methadone Screen Not Detected (Not Detect) ng/mL Urine Fentanyl Screen Not Detected (Not Detect) Ur Barbiturates Screen Not Detected (Not Detect) Ur Phencyclidine Scrn Not Detected (Not Detect) Ur Amphetamines Screen Not Detected (Not Detect) U Benzodiazepines Scrn Not Detected (Not Detect) Urine Cocaine Screen Not Detected (Not Detect) U Marijuana (THC) Screen Not Detected (Not Detect) Ethyl Alcohol 214 mg/dL Discharge Plan Discharge Clinical Impression: Emotional stress Patient Disposition: Home, Self-Care Additional Instructions: You were seen by our care team. Continue to follow up with your mental health provider. Prescriptions: No Action albuterol sulfate [ProAir HFA] 90 mcg/actuation HFA aerosol inhaler 2 puff inhalation Q6H PRN (Reason: shortness of breath or wheezing) 30 Days Qty: 8.5 1RF metoprolol succinate 50 mg tablet extended release 24 hr 50 mg PO DAILY Qty: 90 3RF cholecalciferol (vitamin D3) 25 mcg (1,000 unit) tablet 25 mcg PO DAILY 90 Days Qty: 90 12RF cyclobenzaprine 10 mg tablet 10 mg PO TID PRN (Reason: muscle spasm) 30 Days Qty: 90 0RF lansoprazole 30 mg capsule,delayed release(DR/EC) 30 mg PO DAILY Qty: 30 6RF lorazepam 1 mg tablet 1 mg PO Q12H PRN (Reason: anxiety) 90 Days Qty: 180 0RF dicyclomine 10 mg capsule 10 mg PO QID PRN (Reason: Abdominal Discomfort) omega 4-qvm-btv-fish oil [Fish Oil] 1,200 (144-216) mg Capsule 1 cap PO DAILY magnesium oxide 400 mg (241.3 mg magnesium) tablet 400 mg PO DAILY Qty: 30 3RF sertraline [Zoloft] 50 mg tablet 100 mg PO BEDTIME Qty: 60 2RF naltrexone 50 mg tablet 25 mg PO DAILY Qty: 30 1RF amoxicillin 500 mg capsule 500 mg PO TID Interventions: [place]-Suicide Risk Severity Scale Last Done: 04/07/25 21:59 ED Discharge Assessment Last Done: 04/07/25 21:59 Discharge Date/Time: 04/07/25 22:00 Print Language: Kinyarwanda
--- OUTSIDE RECORDS SUMMARY | 2025-04-07 16:11 | XMS_ITS | Patient Health Record ---
Author Organization [facility] Mirnawei Ybarra Address [address] [facility] [place] [address] Care Team Providers Care Human Intelligence Name Role Phone Jeffrey RIVAS, Олег Primary Care Provider Albert Clement Unavailable [phone] Allergies Allergen (clinical drug ingredient) Drug/Non Drug [...] Status W/U Status Risk Notes Problem Bursitis (59634132) Bursitis (727.3) Active confirmed Problem Myositis (04602751) Myositis (729.1) Active confirmed Problem Pain in limb (49632329) Pain in Limb (729.5) Active confirmed Problem Plantar fasciitis (914801758) Plantar Fasciitis (728.71) Active confirmed Plan Of Treatment Pending Test Test Name Order Date X ray : Foot, left 2V 07/09/2013 X ray : Foot, right 2V 07/09/2013 Insurance Providers Payer Name Payer Address Payer Phone Subscriber Number Group Number Insured Name Patient Relationship to Insured Coverage Start Date Coverage End Date [facility] [address] [place] [address] [phone] [id number] Monserrat Moore Self - patient is the insured Medical (General) History Medical History History ICD Code anxiety Hiatal hernia reflux chicken pox Surgical History Surgery Date(Month/Year) tumor removal from esophagus 2005 section 1994, 1997
--- OUTSIDE RECORDS SUMMARY | 2025-04-07 16:11 | XMS_ITS | Clinical Summary ---
Author Organization [address] [facility] Address [address] [place] [address] Phone Care Team Providers Care Assistant To The Dean Name Role Phone Vishal Brock MD Primary [...] patient's age to complete this topic Insurance [facility] PUBLIC [employer] [place] RUBIO [id number] Care Teams Assistant To The Dean Relationship Specialty Start Date End Date Vishal Brock MD [address] [place] [address] Dr William Harkins [place] PCP - General 06/28/24
--- OUTSIDE RECORDS SUMMARY | 2025-04-07 16:12 | XMS_ITS | Patient Health Record ---
Author Organization [facility] Address [address] [place] [address] Care Team Providers Care Patient Care Director Name Role Phone Олег Murphy MD Primary Care Provider Jack Kim [phone] Reason For Referral No Information Plan Of Treatment No Information Insurance Providers Payer Name Payer Address Payer Phone Subscriber Number Group Number Insured Name Patient Relationship to Insured Coverage Start Date Coverage End Date [facility] [address] [place] [phone] [id number] SARA PAGE Self - patient is the insured
--- NOTE | 2025-04-07 16:17 | PC.NURSE ---
Pt crying on arrival, calm/cooperative; pt reports thinking about her son all day; he in an accident last year and pt said I drank some beers to turn off the pain ; pt states I don't actually want to kill meslef. I just want to see my son again ; pt drove herself to ER; when asked what kind of help she's seeking, pt states I don't think anyone can help ; pt denies suicide plan, denies HI or drug use; pt state she took one of her prescribed Ativan pills VENEER SANDER; pt settled into room; emotional support gv
[2025-04-07 16:42] LABS: MANUAL DIFF FLAG NO
[2025-04-07] MEDS: Nicotine 21 MG PATCH.TD24 TRANSDERMA (16:43)
[2025-04-07 16:44] LABS: Appearance Urine Clear; Glucose Urine UA Negative (Negative); Hematocrit 34.5 % (37.0-47.0); Hemoglobin 11.7 g/dl (12.0-16.0); Imm Gran Abs Auto 0.01 X10*3/uL (0.00-0.03); Imm Gran Pct Auto 0.1 % (0.0-0.4); Lymphocytes Absolute Auto 2.9 X10*3/uL (1.2-4.9); Mean Corpuscular HGB Conc 33.9 g/dl (31.0-35.0); Mean Corpuscular Hemoglobin 28.3 pg (27.0-33.0); Mean Corpuscular Volume 83.5 fL (80.0-98.0); NRBC Abs Auto 0.000 X10*3/uL (0.0-0.012); NRBC Pct Auto 0.0 /100WBC (0.0-0.2); PH 6.0 (5.0-9.0); Platelet Count 278 X10*3/uL (160-400); Red Blood Count 4.13 X10*6/uL (4.20-5.50); Specific Gravity - Urine <= 1.005 (1.005-1.025); UMIC TRIGGER UACC YES; White Blood Count 6.8 X10*3/uL (4.8-10.8)
[2025-04-07 16:57] LABS: Alanine Aminotransferase 21 U/L (0-31); Albumin Level 4.1 g/dL (3.5-5.0); Alkaline Phosphatase 59 U/L (39-117); Anion Gap 14 (12-20); Aspartate Amino Transferase 22 U/L (5-31); Blood Urea Nitrogen 5 mg/dL (9-16); Calcium 9.0 mg/dL (8.4-10.2); Carbon Dioxide 22 mmol/L (22-29); Chloride 108 mmol/L (96-108); Creatinine Clr Calc Pharmacy 113.1; Estimated Glomerular Filt Rate > 60; Magnesium 2.1 mg/dL (1.6-2.6); Potassium 4.0 mmol/L (3.3-5.1); Sodium 140 mmol/L (135-145); Total Protein 6.6 g/dL (6.5-8.0)
[2025-04-07 16:58] LABS: Cannabinoid Screen Urine Not Detected (Not Detect)
[2025-04-07 21:59] VITALS: BP 125/74; PULSE 105; RESP 16; TEMP 36.4; O2SAT 100
== END 2025-04-07 22:00 | disposition home or self-care (01) ==
PROVIDERS: Registered Nurse Emergency; Emergency Provider Emergency Medicine; PCP Internal Medicine
DX: F32.A Depression, unspecified (principal); Z73.3 Stress, not elsewhere classified; Z72.89 Other problems related to lifestyle; Z63.4 Disappearance and death of family member; F17.210 Nicotine dependence, cigarettes, uncomplicated; Z79.899 Other long term (current) drug therapy
CPT/HCPCS: 36415; 80053; 80307; 81001; 81003; 83735; 85025; 93005; 99284; 99285; S9485

== ENCOUNTER → 2025-04-07 16:13 | Outpatient (BNV) | payer OTHER, SELFPAY | PROVIDERS: Emergency Provider Emergency Medicine; PCP Internal Medicine; Visit Provider Internal Medicine Cardiovascular Disease | DX: R00.2 Palpitations (principal) | CPT/HCPCS: 93010 ==

== ENCOUNTER 2025-04-08 15:52 | Outpatient (AMB) | payer OTHER, SELFPAY ==
--- OUTSIDE RECORDS SUMMARY | 2023-08-19 09:27 | XMS_ITS | Continuity of Care Document ---
Author Organization [facility] Address [address] [place] [address] Phone Care Team Providers Care Fleet Driver Name Role Phone Edward IRVAS FACS RVT Devonte BUTLER Unavailable Unavailable Allergies, [...] Providers Copied on Encounter [facility], [address] [place] [address] Dr [address]Mary [place], [id number], [place] tel:[phone] CV[facility] - [facility] No Information 3 Edward Gardiner. [address], [address], [place], [address], [place]. tel:[phone] Referring Provider: Vishal Brock MD, [address], [place], [address]. tel:[phone] [facility], [address] [place] [address] Dr [address]Mary [place], [id number], [place] tel:[phone] CVR - [facility] Encounter for follow-up examination after completed treatment for conditions other than malignant neoplasmPain in left leg 3 Edward Gardiner. [address], [address], [place], [address], [place]. tel:[phone] Referring Provider: Vishal Brock MD, [address], [place], [address]. tel:[phone] Office/Outpt E&M Established 15 Mins [facility], [address] [place] [address] Dr [address]Suite Mary Alvarez MD, [id number], [place] tel:[phone] [facility] (idiopathic) with other complications of left lower extremity 3 Edward Gardiner. [address], [address], [place], [address], [place]. tel:[phone] Referring Provider: Vishal Brock MD, [address], [place], [address]. tel:[phone] Office/Outpt E&M Established 15 Mins [facility], [address] [place] [address] Dr [address]Mary [place], [id number], [place] tel:[phone] [facility]tn w oth comp of bilateral low extrm 3 Edward RIVAS FACS RVT CARRIE Gardiner. [address], [address], [place], [address], [place]. tel:[phone] Referring Provider: Vishal Brock MD, [address], [place], [address]. tel:[phone] [facility] [facility], [address] [place] [address] Dr [address] 1000Mary [place], [id number], [place] tel:[phone] [facility] [place] [facility] [place] No Information 3 Edward RIVAS FACS RVT CARRIE Gardiner. [address], [address], [place], [address], [place]. [phone] Referring Provider: Vishal Brock MD, [address], [place], [address]. tel:[phone] [facility], [address] [place] [address] Dr [address]Mary [place], [id number], [place] tel:[phone] CVR - [place] [facility] [place] Encntr for f/u exam aft trtmt for cond oth than malig neoplmVenous insufficiency (chronic) (peripheral) 3 Edward RIVAS FACS RVT CARRIE Gardiner. [address], [address], [place], [address], [place]. [phone] Referring Provider: Vishal Brock MD, [address], [place], [address]. tel:[phone] [facility], [address] [place] [address] [address] 1000Mary [place], [id number], [place] tel:[phone] CVR [place] [facility] [place] Venous insufficiency (chronic) (peripheral) 3 Edward RIVAS FACS RVT CARRIE Gardiner. [address], [address], [place], [address], [place]. tel:[phone] Referring Provider: Vishal Brock MD, [address], [place], [address]. tel:[phone] [facility], [address] [place] [address] [address] 1000Mary [place], [id number], [place] tel:[phone] [facility] [place] [facility] [place] Venous insufficiency (chronic) (peripheral) 3 Edward RIVAS FACS T CARRIE Gardiner. [address], [address], [place], [address], [place]. [phone] Referring Provider: Vishal Brock MD, [address], [place], [address]. tel:[phone] [facility], [address] [place] [address] [address] 1000Mary [place], [id number], [place] tel:[phone] CVR [place] [facility] [place] Varicose veins of right low extrm w oth complications 3 Maggy Nguyen . [address], [address], [place], [place], [id number] , [place]. [phone] Referring Provider: Vishal Brock MD, [address], [place], [address]. tel:[phone] [facility], [address] [place] [address] [address] 1000Mary [place], [id number], [place] tel:[phone] CVR [place] [facility] [place] Encntr for f/u exam aft trtmt for cond oth than malig neoplmVenous insufficiency (chronic) (peripheral) 3 Edward RIVAS FACS T CARRIE Gardiner. [address], [address], [place], [address], [place]. [phone] Referring Provider: Vishal Brock MD, [address], [place], [address]. tel:[phone] [facility], [address] [place] [address] Dr Thomas 1000Suite 1000Mary [place], [id number], [place] tel:[phone] [facility] - [place] [facility] [place] Venous insufficiency (chronic) (peripheral) 3 Edward RIVAS FACS T CARRIE Gardiner. [address], [facility] [address], [place], [address], [place]. tel:[phone] Referring Provider: Vishal Brock MD, [address] [place] [address] Dr [address], [place], [address]. tel:[phone] [facility], [address], [place], [id number], [place] tel:[phone] [facility] - [facility] Venous insufficiency (chronic) (peripheral) 3 Edward RIVAS FACS T CARRIE Gardiner. [address], [address], [place], [address], [place]. tel:[phone] Referring Provider: Vishal Brock MD, [address] [place] [address] Dr [address], [place], [address]. tel:[phone] Family History Family Member Type Diagnosis Age At Onset No Information Payers Payer name Insurance type Covered republican ID Authorchada tirama(s) Medical Assistance PENDING SALE TO [facility] [id number] Social History Type Description Quantity Date Captured [...]
--- OUTSIDE RECORDS SUMMARY | 2025-04-08 15:54 | XMS_ITS | Patient Health Record ---
Author Organization [facility] Mirnawei Ybarra Address [address] [facility] [place] [address] Care Team Providers Care Special Population Paraprofessional Name Role Phone Jeffrey RIVAS, Олег Primary Care Provider Albert Clement Unavailable [phone] Allergies Allergen (clinical drug ingredient) Drug/Non Drug [...] Status W/U Status Risk Notes Problem Bursitis (82431976) Bursitis (727.3) Active confirmed Problem Myositis (13214282) Myositis (729.1) Active confirmed Problem Pain in limb (42896398) Pain in Limb (729.5) Active confirmed Problem Plantar fasciitis (303893635) Plantar Fasciitis (728.71) Active confirmed Plan Of Treatment Pending Test Test Name Order Date X ray : Foot, left 2V 07/09/2013 X ray : Foot, right 2V 07/09/2013 Insurance Providers Payer Name Payer Address Payer Phone Subscriber Number Group Number Insured Name Patient Relationship to Insured Coverage Start Date Coverage End Date [facility] [address] [place] [address] [id number] Monserrat Moore Self - patient is the insured Medical (General) History Medical History History ICD Code anxiety Hiatal hernia reflux chicken pox Surgical History Surgery Date(Month/Year) tumor removal from esophagus 2005 section 1994, 1997
--- OUTSIDE RECORDS SUMMARY | 2025-04-08 15:54 | XMS_ITS | Clinical Summary ---
Author Organization [address] [facility] Address [address] [place] [address] Phone Care Team Providers Care Learning And Development Officer Name Role Phone Vishal Brock MD Primary Care Provider [phone] Allergies No known active allergies Medications cholecalciferol [...] Influencers of Health Screening 07/28/2024 Influenza Vaccine (#1) 2025 HIB Vaccines Aged Out No longer [...] 5 Years) and At-Risk Patients (6 to 49 Years) Aged Out No longer eligible b ased on patient's age to complete this topic RSV Immunization Patients Under 20 months Aged Out No longer eligible b ased on patient's age to complete this topic Varicella Vaccines Aged Out No longer eligible based on patient's age to complete this topic Insurance [facility] PUBLIC PLANS [place] [id number] Care Teams Learning And Development Officer Relationship Specialty Start Date End Date Vishal Brock MD [address] [place] [address] Dr William Harkins [place] PCP - General 06/28/24
--- OUTSIDE RECORDS SUMMARY | 2025-04-08 15:54 | XMS_ITS | Patient Health Record ---
Author Organization [facility] Address [address] [place] [address] Care Team Providers Care Adhesive Primer Name Role Phone Олег Murphy MD Primary Care Provider Jack Kim [phone] Reason For Referral No Information Plan Of Treatment No Information Insurance Providers Payer Name Payer Address Payer Phone Subscriber Number Group Number Insured Name Patient Relationship to Insured Coverage Start Date Coverage End Date [facility] [address] [place] [phone] [id number] SARA PAEG Self - patient is the insured
--- NOTE | 2025-04-08 16:04 | A.OFFPSYCH_ITS ---
Intake Intake Visit Reasons: f/u consultation It Disaster Recovery Manager Required: No Allergies morphine Adverse Reaction (Unknown, Verified 04/26/25 14:28) withdrawals/sweats Medication List - Last Reconciled 04/08/25 by Betty Kumar APRN albuterol sulfate 90 mcg/actuation (ProAir HFA) 2 puffs inhalation Q6H PRN 30 days amoxicillin 500 mg PO TID cholecalciferol (vitamin D3) 25 mcg PO DAILY 90 days cyclobenzaprine 10 mg PO TID PRN 30 days dicyclomine 10 mg PO QID PRN lansoprazole 30 mg PO DAILY lorazepam 1 mg PO Q12H PRN 90 days magnesium oxide 400 mg PO DAILY metoprolol succinate ER 50 mg PO DAILY omega 9-rab-gyw-fish oil 1,200 (144-216) mg (Fish Oil) 1 cap PO DAILY sertraline (Zoloft) 100 mg (2 x 50 mg) PO BEDTIME HPI- Psychiatric Chief Complaint: f/u consultation HPI Narrative: pt request to be seen earlier than scheduled; wants to change meds and go back on prozac instead of zoloft. reports anxiety. sadness, grief related to the loss of her son; court date rapidly approaching (may 01) increased anxiety about the process. stress re: work, had wisdom teeth out last week; foster/step brother arrested - very stressful for pt . pt very sad. med compliant; denies SI or Hi; denies self harm; denies side effects. pt reports a few epsiodes of drinking more alcohol than she would like. wants to try naltrexone to reduce urge Past Psychiatric History: no IPLOC; outp tx with prozac and ativan. hx of heavy alcohol use in past Mental Status Exam Mental Status Exam Patient Appearance: Well Grooomed Patient Orientation: Person, Place, Time and Situation Level of Consciousness: Awake and Appropriate Patient Behavior: Appropriate and Cooperative Mood Description: Anxious and Sad Affect Description: Anxious and Sad Patient Cognition Impaired: No Ability to Follow Directions: Good Speech Pattern: Clear and Coherent Memory Description: Intact Hallucinations: None Delusions: Not Present Thought Process: Intact and Goal Oriented Thought Content: positive for Intact and positive for Goal Oriented Judgement: Good Assessment and Plan Assessment & Plan (1) Complicated bereavement: Status: Acute Code(s): F43.21 - Adjustment disorder with depressed mood (2) Major depressive disorder, recurrent, mild: Status: Acute Code(s): F33.0 - Major depressive disorder, recurrent, mild (3) DARBY (generalized anxiety disorder): Status: Acute Code(s): F41.1 - Generalized anxiety disorder Medications: New naltrexone 25 mg (1/2 x 50 mg) PO DAILY 30 tabs 1RF Counseling and coordination of Care Pt. Self Management counseling: Exercise, Mod caffeine/ETOH intake, Nutrition education and improvement, Sleep hygiene, Behavior activation and Greif counseling Medication management counseling: Effectiveness, Side effects, Dosing range, Duration, Drug interaction and Adherence Diagnosis and Prognosis Counseling: Accuracy of diagnosis, Prognosis over time, Impact of diagnosis on life functions, Impact of family relationship, Problematic behaviors secondary to diagnosis and Adequacy of current interventions Details: I spent 45 minutes reviewing the record, seeing the patient and documenting in the medical record. Counseling provided to the patient/caregiver as outlined below. Addressed patient/caregiver concerns regarding current medication regime including e ffective adherence. Addressed patient/caregiver concerns regarding diagnosis and prognosis including accuracy of diagnosis, prognosis over time, impact of diagnosis. Addressed patient/caregiver concerns regarding impact of recent stressors. [facility] Medical History Annual physical exam Irregular bleeding Encounter for well woman exam with routine gynecological exam Fibroid Cervical spondylosis Heavy menses History of gastrointestinal stromal tumor (GIST) Wheezing Left foot pain Situational depression Tinea Left shoulder pain Family history of breast cancer Low back pain Paresthesia of left upper extremity Potential exposure to STD Epigastric pain Abdominal bloating At high risk for breast cancer Elbow injury Chest pain Calf pain Umbilical pain Right knee pain Mild anemia Sinus pressure Cough Left ankle pain Problematic vaginal discharge Pain of left great toe Status post fall Pre-op examination Major depressive disorder, recurrent, mild Hot flashes Venous insufficiency of both lower extremities Pure hypercholesterolemia SVT (supraventricular tachycardia) Cardiac arrhythmia Hx of esophageal ulcer Benign essential hypertension Vitamin D deficiency Bipolar disorder Alcoholism Obesity (BMI 30-39.9) Anxiety Bipolar 1 disorder Depression Surgical History History of breast augmentation Hx of nasal septoplasty History of incisional hernia repair Hx of colonoscopy Hx of section Hx of gastrostomy (~04/2002) Hx of endoscopy Family History Father Esophagus cancer, Onset Age: 63 Mother Breast cancer, Onset Age: 46 Maternal Grandfather Cancer Paternal Aunt Breast cancer Maternal Aunt Breast cancer Son MVA (motor vehicle accident) Social History Household Members: None Housing: House Are you a primary director of medicare to a significant other at home: No Do you presently have visiting nurse or other home services: No Alcohol intake: former Patient Tobacco Use Status: Current everyday Tobacco user Cigarettes Per Day: 5 Years Smoked: rarely- occasional smoker e-Cigarette/Vaping Use: Never Used Second Hand Smoke Exposure: Yes service: No Current occupational status: employed Cognitive needs: No Hearing needs: No Vision needs: Yes (Glasses) Social History: has good social support; work FT. Substance History: heavy ETOH use in past Trauma History: loss of son this year when he was hit by drunk dump truck driver [place] highway Coding Level of Care Code Est Pt Level 3 (07483) Therapy 30m w/E&M (51450) Diagnoses 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 Major depressive disorder, recurrent, mild F33.0 DARBY (generalized anxiety disorder) F41.1
== END 2025-04-08 17:00 | disposition home or self-care (01) ==
LOC: HO.HOP 15:52
PROVIDERS: PCP Internal Medicine; Visit Provider Clinical Nurse Specialist Psychiatric/Mental Health
DX: F43.21 Adjustment disorder with depressed mood (principal); F33.0 Major depressive disorder, recurrent, mild; F41.1 Generalized anxiety disorder
CPT/HCPCS: 90833; 99213

== ENCOUNTER → 2025-04-08 15:52 | Outpatient (BNVA) | payer OTHER, SELFPAY | PROVIDERS: PCP Internal Medicine; Visit Provider Clinical Nurse Specialist Psychiatric/Mental Health | DX: F43.21 Adjustment disorder with depressed mood (principal); F33.0 Major depressive disorder, recurrent, mild; F41.1 Generalized anxiety disorder | CPT/HCPCS: 99212 ==

== ENCOUNTER 2025-04-12 16:05 | Outpatient (REF) | payer MEDICAID, SELFPAY ==
--- OUTSIDE RECORDS SUMMARY | 2023-08-19 09:27 | XMS_ITS | Continuity of Care Document ---
Author Organization [facility] Address [address] [facility] [address] [facility] [address] MD [place] [address] Phone Care Team Providers Care Aviation Manager Name Role Phone Edward RIVAS FACS RVT [...] Providers Copied on Encounter [facility], [address] [place] [address] Dr [address] 1000Mary [place], [id number], [place] tel:[phone] CVR - [facility] No Information 3 Edward Gardiner. [address] [facility], [address], [place], [address], [place]. tel:[phone] Referring Provider: Vishal Brock MD, [address], [place], [address]. tel:[phone] [facility], [address] [place] [address] Dr [address] 1000Mary MD, [id number], [place] tel:[phone] CVR - [facility] Encounter for follow-up examination after completed treatment for conditions other than malignant neoplasmPain in left leg 3 Edward Gardiner. [address] [facility], [address], [place], [address], [place]. tel:[phone] Referring Provider: Vishal Brock MD, [address], [place], [address]. tel:[phone] Office/Outpt E&M Established 15 Mins [facility], [address] [place] [address] Dr [address]Suite Mary Alvarez MD, [id number], [place] tel:[phone] [facility] hypertension (idiopathic) with other complications of left lower extremity 3 Edward Gardiner. [address] [facility], [address], [place], [address], [place]. tel:[phone] Referring Provider: Vishal Brock MD, [address], [place], [address]. tel:[phone] Office/Outpt E&M Established 15 Mins [facility], [address] [place] [address] Dr [address] 1000Mary MD, [id number], [place] tel:[phone] [facility] Chronic venous htn w oth comp of bilateral low extrm 3 Edward RIVAS FACS RVT CARRIE Gardiner. [address] [place], [address], [place], [address], [place]. tel:[phone] Referring Provider: Vishal Brock MD, [address], [place], [address]. tel:[phone] [place] [facility], [address] [place] [address] Dr [address]Suite 1000Mary [place], [id number], [place] tel:[phone] CVR - [place] No Information 3 Edward RIVAS FACS RVT CARRIE Gardiner. [address] [facility], [address], [place], [address], [place]. [phone] Referring Provider: Vishal Brock MD, [address], [place], [address]. tel:[phone] [facility], [address] [place] [address] Dr [address] 1000Mary MD, [id number], [place] tel:[phone] CVR - [place] [facility] [place] Encntr for f/u exam aft trtmt for cond oth than malig neoplmVenous insufficiency (chronic) (peripheral) 3 Edward RIVAS FACS RVT CARRIE Gardiner. [address] [facility] [facility], [address], [place], [address], [place]. [phone] Referring Provider: Vishal Brock MD, [address], [place], [address]. tel:[phone] [facility], [address] [place] [address] [address]Suite 1000Mary [place], [id number], [place] tel:[phone] CV[facility] - [place] [facility] [place] Venous insufficiency (chronic) (peripheral) 3 Edward RIVAS FACS RVT CARRIE Gardiner. [address] [facility], [address], [place], [address], [place]. tel:[phone] Referring Provider: Vishal Brock MD, [address], [place], [address]. tel:[phone] [facility], [address] [place] [address] [address] 1000Mary [place], [id number], [place] tel:[phone] [facility] - [place] [facility] [place] Venous insufficiency (chronic) (peripheral) 3 Edward RIVAS FACS T CARRIE Gardiner. [address] [facility], [address], [place], [address], [place]. [phone] Referring Provider: Vishal Brock MD, [address], [place], [address]. 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 [address] [facility], [address], [place], [place], [id number] , [place]. [phone] Referring Provider: Vishal Brock MD, [address], [place], [address]. tel:[phone] Gaurav Ryan Vein [facility], [address] [place] [address] [address]Suite 1000Mary MD, [id number], [place] tel:[phone] [facility] - [place] [facility] [place] Encntr for f/u exam aft trtmt for cond oth than malig neoplmVenous insufficiency (chronic) (peripheral) 3 Edward RIVAS FACS T CARRIE Gardiner. [address] [facility], [address], [place], [address], [place]. [phone] Referring Provider: Vishal Brock MD, [address], [place], [address]. tel:[phone] Gaurav Ryan [facility]in [facility], [address] [place] [address] [address]Suite 1000Mary [place], [id number], [place] tel:[phone] [facility] - [place] [facility] [place] Venous insufficiency (chronic) (peripheral) 3 Edward RIVAS FACS T CARRIE Gardiner. [address] [facility] [facility], [facility] [address], [place], [address], [place]. tel:[phone] Referring Provider: Vishal Brock MD, [address] [place] [address] Dr [address], [place], [address]. tel:[phone] [facility], [address] [facility] [address], [place], [id number], [place] tel:[phone] CVR - [facility] Venous insufficiency (chronic) (peripheral) 3 Edward RIVAS FACS T CARRIE Gardiner. [address] [facility] [facility], [address], [place], [address], [place]. tel:[phone] Referring Provider: Vishal Brock MD, [address] [place] [address] Dr [address], [place], [address]. tel:[phone] Family History Family Member Type Diagnosis Age At Onset No Information Payers Payer name Insurance type Covered republican ID Authorchada tirama(s) Medical Assistance [facility] [id number] Social History Type Description Quantity Date Captured [...]
--- OUTSIDE RECORDS SUMMARY | 2025-04-12 16:06 | XMS_ITS | Patient Health Record ---
Author Organization [facility] Mirnawei Ybarra Address [address] [facility] [place] [address] Care Team Providers Care Clark Driver Name Role Phone Jeffrey RIVAS, Олег Primary Care Provider Albert Clement Unavailable [phone] Allergies Allergen (clinical drug ingredient) Drug/Non Drug [...] Status W/U Status Risk Notes Problem Bursitis (01648285) Bursitis (727.3) Active confirmed Problem Myositis (22410550) Myositis (729.1) Active confirmed Problem Pain in limb (80164402) Pain in Limb (729.5) Active confirmed Problem Plantar fasciitis (441855893) Plantar Fasciitis (728.71) Active confirmed Plan Of Treatment Pending Test Test Name Order Date X ray : Foot, left 2V 07/09/2013 X ray : Foot, right 2V 07/09/2013 Insurance Providers Payer Name Payer Address Payer Phone Subscriber Number Group Number Insured Name Patient Relationship to Insured Coverage Start Date Coverage End Date [facility] [address] [place] [address] [id number] Monserrat Moore Self - patient is the insured Medical (General) History Medical History History ICD Code anxiety Hiatal hernia reflux chicken pox Surgical History Surgery Date(Month/Year) tumor removal from esophagus 2005 section 1994, 1997
--- OUTSIDE RECORDS SUMMARY | 2025-04-12 16:06 | XMS_ITS | Clinical Summary ---
Author Organization [address] [facility] Address [address] [place] [address] Phone Care Team Providers Care Radiographer Angiogram Name Role Phone Vishal Brock MD Primary [...] patient's age to complete this topic Insurance [facility] [employer] ROSARIO RUBIO [id number] Care Teams Radiographer Angiogram Relationship Specialty Start Date End Date Vishal Brock MD [address] [place] [address] Dr William Harkins [place] PCP - General 06/28/24
--- OUTSIDE RECORDS SUMMARY | 2025-04-12 16:07 | XMS_ITS | Patient Health Record ---
Author Organization [facility] Address [address] [place] [address] Care Team Providers Care Oracle Software Engineer Name Role Phone Олег Murphy MD Primary Care Provider Jack Kim [phone] Reason For Referral No Information Plan Of Treatment No Information Insurance Providers Payer Name Payer Address Payer Phone Subscriber Number Group Number Insured Name Patient Relationship to Insured Coverage Start Date Coverage End Date [facility] [address] [place] [address] [id number] SARA PAGE Self - patient is the insured
== END 2025-04-12 16:06 | disposition home or self-care (01) ==
LOC: HO.MAMMO 16:05
PROVIDERS: PCP Internal Medicine; Visit Provider Internal Medicine
DX: Z12.31 Encounter for screening mammogram for malignant neoplasm of breast (principal)
CPT/HCPCS: 77063; 77067

== ENCOUNTER → 2025-04-12 16:15 | Outpatient (BNV) | payer MEDICAID, SELFPAY | PROVIDERS: PCP Internal Medicine; Visit Provider Internal Medicine | DX: Z12.31 Encounter for screening mammogram for malignant neoplasm of breast (principal) | CPT/HCPCS: 77063; 77067 ==

== ENCOUNTER 2025-04-24 11:51 | Outpatient (AMB) | payer OTHER, SELFPAY ==
[2025-04-24 11:57] VITALS: BP 109/64; PULSE 83; BMI 32.4
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
--- OUTSIDE RECORDS SUMMARY | 2025-04-24 12:38 | XMS_ITS | Patient Health Record ---
Author Organization [facility] Address [address] [place] [address] Care Team Providers Care Game Master Name Role Phone Олег Murphy MD Primary Care Provider Jack Kim [phone] Reason For Referral No Information Plan Of Treatment No Information Insurance Providers Payer Name Payer Address Payer Phone Subscriber Number Group Number Insured Name Patient Relationship to Insured Coverage Start Date Coverage End Date [facility] [address] [place] [phone] [id number] SARA PAGE Self - patient is the insured
--- OUTSIDE RECORDS SUMMARY | 2025-04-24 12:38 | XMS_ITS | Clinical Summary ---
Author Organization [facility] Address [address] [place] [address] Phone Care Team Providers Care Brick Carrier Name Role Phone Vishal Brock MD Primary [...] Panel) 07/28/2024 Colorectal Cancer Screening: Colonoscopy 07/28/2024 HIV Screening 07/28/2024 Hepatitis C Screening 07/28/2024 Social Influencers of Health Screening 07/28/2024 Depression Screening 10/03/2024 Influenza Vaccine (#1) 2025 HIB Vaccines Aged [...] patient's age to complete this topic Insurance [facility] PUBLIC PL[employer] Care Teams Brick Carrier Relationship Specialty Start Date End Date Vishal Brock MD [address] [place] [address] Dr Thomas [address] ROSARIO Harkins PCP - General 06/28/24
--- OUTSIDE RECORDS SUMMARY | 2025-04-24 12:39 | XMS_ITS | Patient Health Record ---
Author Organization [facility] Mirnawei Ybarra Address [address] [facility] [place] [address] Care Team Providers Care Diabetes Trainer Name Role Phone Jeffrey RIVAS, Олег Primary Care Provider Albert Clement Unavailable [phone] Allergies Allergen (clinical drug ingredient) Drug/Non Drug [...] Status W/U Status Risk Notes Problem Bursitis (00899761) Bursitis (727.3) Active confirmed Problem Myositis (52962587) Myositis (729.1) Active confirmed Problem Pain in limb (83594710) Pain in Limb (729.5) Active confirmed Problem Plantar fasciitis (835836182) Plantar Fasciitis (728.71) Active confirmed Plan Of Treatment Pending Test Test Name Order Date X ray : Foot, left 2V 07/09/2013 X ray : Foot, right 2V 07/09/2013 Insurance Providers Payer Name Payer Address Payer Phone Subscriber Number Group Number Insured Name Patient Relationship to Insured Coverage Start Date Coverage End Date [facility] [address] [place] [id number] Monserrat Moore Self - patient is the insured Medical (General) History Medical History History ICD Code anxiety Hiatal hernia reflux chicken pox Surgical History Surgery Date(Month/Year) tumor removal from esophagus 2005 section 1994, 1997
== END 2025-04-24 12:29 | disposition home or self-care (01) ==
LOC: HO.HGI 11:52
PROVIDERS: PCP Internal Medicine; Visit Provider Nurse Practitioner
DX: K21.9 Gastro-esophageal reflux disease without esophagitis (principal); K58.9 Irritable bowel syndrome, unspecified
CPT/HCPCS: 99213

== ENCOUNTER → 2025-04-24 11:51 | Outpatient (BNVA) | payer OTHER, SELFPAY | PROVIDERS: PCP Internal Medicine; Visit Provider Nurse Practitioner | DX: K21.9 Gastro-esophageal reflux disease without esophagitis (principal); R10.13 Epigastric pain; K58.9 Irritable bowel syndrome, unspecified; Z79.899 Other long term (current) drug therapy; Z85.09 Personal history of malignant neoplasm of other digestive organs | CPT/HCPCS: 99212 ==

== ENCOUNTER → 2025-04-25 10:57 | Outpatient (REF) | payer OTHER, SELFPAY ==
--- OUTSIDE RECORDS SUMMARY | 2023-08-19 09:27 | XMS_ITS | Continuity of Care Document ---
Author Organization [facility] Address [address] [facility] [facility] [place] [address] [place] [address] Phone Care Team Providers Care Vp Ad Products And Planning Name Role Phone Edward RIVAS FACS RVT [...] Providers Copied on Encounter [facility], [address] [place] [address] Dr [address]Mary [place], [id number], [place] tel:[phone] CV[facility] - [facility] No Information 3 Edward Gardiner. [address], [address], [place], [address], [place]. tel:[phone] Referring Provider: Vishal Brock MD, [address], [place], [address]. tel:[phone] [facility], [address] [place] [address] Dr [address]Mary [place], [id number], [place] tel:[phone] CVR - [facility] Encounter for follow-up examination after completed treatment for conditions other than malignant neoplasmPain in left leg 3 Edward Gardiner. [address], [address], [place], [address], [place]. tel:[phone] Referring Provider: Vishal Brock MD, [address], [place], [address]. tel:[phone] Office/Outpt E&M Established 15 Mins [facility], [address] [place] [address] Dr [address]Suite Mary Alvarez MD, [id number], [place] tel:[phone] [facility] hypertension (idiopathic) with other complications of left lower extremity 3 Edward Gardiner. [address], [address], [place], [address], [place]. tel:[phone] Referring Provider: Vishal Brock MD, [address], [place], [address]. tel:[phone] Office/Outpt E&M Established 15 Mins [facility], [address] [place] [address] Dr [address]Mary [place], [id number], [place] tel:[phone] [facility] Chronic venous htn w oth comp of bilateral low extrm 3 Edward RIVAS FACS RVT CARRIE Gardiner. [address], [address], [place], [address], [place]. tel:[phone] Referring Provider: Vishal Brock MD, [address], [place], [address]. tel:[phone] [place] [facility], [address] [place] [address] Dr [address] 1000aMry MD, [id number], [place] tel:[phone] [facility] - [place] [facility] [place] No Information 3 Edward RIVAS FACS RVT CARIRE Gardiner. [address], [address], [place], [address], [place]. [phone] Referring Provider: Vishal Brock MD, [address], [place], [address]. tel:[phone] [facility], [address] [place] [address] Dr [address]Mary [place], [id number], [place] tel:[phone] [facility] - [place] [facility] [place] Encntr for f/u exam aft trtmt for cond oth than malig neoplmVenous insufficiency (chronic) (peripheral) 3 Edward RIVAS FACS RVT CARRIE Gardiner. [address], [address], [place], [address], [place]. [phone] Referring Provider: Vishal Brock MD, [address], [place], [address]. tel:[phone] [facility], [address] [place] [address] [address] 1000Mary [place], [id number], [place] tel:[phone] [facility] - [place] [facility] [place] Venous insufficiency (chronic) (peripheral) 3 Edward RIVAS FACS RVT CARRIE Gardiner. [address], [address], [place], [address], [place]. tel:[phone] Referring Provider: Vishal Brock MD, [address], [place], [address]. tel:[phone] [facility], [address] [place] [address] [address] 1000Mary MD, [id number], [place] tel:[phone] [facility] - [place] [facility] [place] Venous insufficiency (chronic) (peripheral) 3 Edward RIVAS FACS T CARRIE Gardiner. [address], [address], [place], [address], [place]. [phone] Referring Provider: Vishal Brock MD, [address], [place], [address]. tel:[phone] [facility], [address] [place] [address] [address] 1000Mary [place], [id number], [place] tel:[phone] [facility] [place] [facility] [place] Varicose veins of right low extrm w oth complications 3 Maggy Nguyen . [address], [address], [place], [place], [id number] , [place]. [phone] Referring Provider: Vishal Brock MD, [address], [place], [address]. tel:[phone] [facility], [address] [place] [address] [address] 1000Mary MD, [id number], [place] tel:[phone] [facility] - [place] [facility] [place] Encntr for f/u exam aft trtmt for cond oth than malig neoplmVenous insufficiency (chronic) (peripheral) 3 Edward RIVAS FACS T CARRIE Gardiner. [address], [address], [place], [address], [place]. [phone] Referring Provider: Vishal Brock MD, [address], [place], [address]. tel:[phone] [facility], [address] [place] [address] Dr [address] 1000Mary [place], [id number], [place] tel:[phone] [facility] - [place] [facility] [place] Venous insufficiency (chronic) (peripheral) 3 Edward RIVAS FACS T CARRIE Gardiner. [address] [facility], [facility] [address], [place], [address], [place]. tel:[phone] Referring Provider: Vishal Brock MD, [address] [place] [address] Dr [address], [place], [address]. tel:[phone] [facility], [address] [facility] [place] [place] Dr [address], [place], [id number], [place] tel:[phone] [facility] - [facility] Venous insufficiency (chronic) (peripheral) 3 Edward RIVAS FACS T CARRIE Gardiner. [address], [address], [place], [address], [place]. tel:[phone] Referring Provider: Vishal Brock MD, [address] [place] [address] Dr [address], [place], [address]. tel:[phone] Family History Family Member Type Diagnosis Age At Onset No Information Payers Payer name Insurance type Covered green party ID Authorchada tirama(s) Medical Assistance [facility] [id number] Social History Type Description Quantity Date Captured [...]
--- NOTE | 2025-04-25 11:03 | HM_ITS ---
* Total monitoring time 5 days. * Underlying rhythm is sinus with an average rate of 85/Min. * No significant supraventricular ectopy. * Rare ventricular ectopy. * No significant pauses or high-grade AV blocks. * Patient markers used with sinus rhythm. * No diary events. MTDD
--- NOTE | 2025-04-25 11:03 | CA_ITS ---
Transthoracic Echocardiogram Patient (Last, First, Middle): Carla Lopez, Gender: Female Date of : 1970 Age: 54 Procedure Date: 04/25/2025 Procedure Type: Transthoracic Echocardiogram Location: OP Height: 167.64 cm Weight: 90.72 kg BSA: 2.00 m2 Heart Rate: bpm BP: 109 / 64 mmHg Clinical Systems Educator: MALINA Referring MD: Iris Alvarenga RESEARCH PHYSIOLOGIST-Bella Knot Bumper: Bj Foote MD Symptoms: I49.9 - Cardiac arrhythmia, unspecified Study Quality: Fair ECG Rhythm: Sinus Conclusions: - Essentially normal study Findings Procedure Information Contrast agent, definity, is being given per protocol without apparent complications. Left Ventricle Normal left ventricular size, thickness, and systolic function. The visually estimated ejection fraction is between 65-70%. Spectral Doppler is indicative of a normal filling pattern. Right Ventricle Normal right ventricular cavity size and systolic function. Atria The left atrium is normal in size. Interatrial shunt cannot be excluded. The right atrium was not well visualized. Aortic Valve The aortic valve structure and function is likely normal. There is no aortic valve stenosis. There is no aortic valve regurgitation. Mitral Valve Likely normal mitral valve structure and function. There is trace mitral valve regurgitation. There is no mitral valve stenosis. Pulmonic Valve The pulmonic valve was not well visualized. Tricuspid Valve Likely normal tricuspid valve structure and function. There is trace tricuspid valve regurgitation. The right ventricular systolic pressure is normal. The right ventricular systolic pressure is 13 mmHg. Normal right atrial pressure. There is no evidence of pulmonary hypertension. Great Vessels All visible segments of the aorta are normal in size. The pulmonary artery was not well visualized. Venous The inferior vena cava is normal in size and collapses greater than 50% with inspiration. Pericardium/Pleural There is no evidence of pericardial effusion. Measurements 2D Linear Measurements IVSd: 1.00 0.6-0.9/0.6-1.0 cm LVIDd: 4.61 3.9-5.3/4.2-5.9 cm LVIDd Index: 2.31 2.4-3.2/2.2-3.1 cm/m2 LVIDs: 3.01 2.0-3.6 cm LVPWd: 0.78 0.7-1.1 cm LA Diam: 3.40 2.7-3.8/3.0-4.0 cm LAIDs Index: 1.70 1.5-2.3 cm/m2 LV Mass: 168.57 67-162/88-224 g LV Mass Index: 84.29 43-95/49-115 g/m2 LVOT Diam: 2.00 3.0+(-)1.3 cm 2D Systolic Function EF 4C: 68.50 >55% EF 2C: 64.80 >55% EF BiP: 66.60 >55% Mitral Valve MV Pk E: 0.69 MV PK A: 0.62 MV Decel Time: 236.00 E/A: 1.10 E'Lateral: 10.80 E'Medial: 6.74 E/E' Med: 10.20 E/E' Lat: 6.40 PHT: 69.00 MVA PHT: 3.19 Decel Inyo: 2.92 Aortic Valve AoV Pk Gurinder: 1.43 AoV Mn Gurinder: 0.99 AoV VTI: 0.30 AoV Pk Grad: 8.00 Aov Mn Grad: 4.00 MODESTO Cont.VTI: 2.40 LVOT LVOT Pk Gurinder: 1.12 LVOT Mn Gurinder: 0.78 LVOT VTI: 0.23 LVOT Pk Grad: 5.00 LVOT Mn Grad: 3.00 LVOT Diam: 2.00 LVOT Area: 3.14 Diastolic Function MV Pk E: 0.69 MV Pk A: 0.62 E/A: 1.10 E'Medial: 6.74 E/E' Med: 10.20 E' Laterial: 10.80 E/E' Lat: 6.40 Right Ventricle TAPSE (mm): 27.20 TVS' Gurinder: 9.36 Tricuspid Valve TR Pk Gurinder: 1.59 TR Pk Grad: 10.00 RA Press: 3.00 RVSP: 13.00 Great Vessels Aorta Sinus of Valsalva: 3.17 2.0-3.[address] Ridge: 2.57 1.7-3.4 cm Ao Asc: 2.60 2.1-3.4 cm Updated in Other Vendor System with Status of Final Bj Foote MD electronically signed on 04/25/2025 1:51:34 PM with status of Final
--- OUTSIDE RECORDS SUMMARY | 2025-04-25 11:45 | XMS_ITS | Clinical Summary ---
Author Organization [facility] Address [address] [place] [address] Phone Care Team Providers Care Power Truck Driver Name Role Phone Vishal Brock MD Primary [...] patient's age to complete this topic Insurance [facility] PUBLIC PLANS Care Teams Power Truck Driver Relationship Specialty Start Date End Date Vishal Brock MD [address] [place] [address] Dr Thomas [address] ROSARIO Harkins PCP - General 06/28/24
--- OUTSIDE RECORDS SUMMARY | 2025-04-25 11:45 | XMS_ITS | Patient Health Record ---
Author Organization [facility] Mirnawei Ybarra Address [address] [facility] [place] [address] Care Team Providers Care Executive Search Consultant Name Role Phone Jeffrey RIVAS, Олег Primary Care Provider Albert Clement Unavailable [phone] Allergies Allergen (clinical drug ingredient) Drug/Non Drug [...] Status W/U Status Risk Notes Problem Bursitis (02769065) Bursitis (727.3) Active confirmed Problem Myositis (41437209) Myositis (729.1) Active confirmed Problem Pain in limb (55772658) Pain in Limb (729.5) Active confirmed Problem Plantar fasciitis (690265628) Plantar Fasciitis (728.71) Active confirmed Plan Of Treatment Pending Test Test Name Order Date X ray : Foot, left 2V 07/09/2013 X ray : Foot, right 2V 07/09/2013 Insurance Providers Payer Name Payer Address Payer Phone Subscriber Number Group Number Insured Name Patient Relationship to Insured Coverage Start Date Coverage End Date [facility] [address] [place] [address] [phone] [id number] Monserrat Moore Self - patient is the insured Medical (General) History Medical History History ICD Code anxiety Hiatal hernia reflux chicken pox Surgical History Surgery Date(Month/Year) tumor removal from esophagus 2005 section 1994, 1997
--- OUTSIDE RECORDS SUMMARY | 2025-04-25 11:45 | XMS_ITS | Patient Health Record ---
Author Organization [facility] Address [address] [place] [address] Care Team Providers Care Financial Writer Name Role Phone Олег Murphy MD Primary Care Provider Jack Kim [phone] Reason For Referral No Information Plan Of Treatment No Information Insurance Providers Payer Name Payer Address Payer Phone Subscriber Number Group Number Insured Name Patient Relationship to Insured Coverage Start Date Coverage End Date [facility] [address] [place] [address] [phone] [id number] SARA PAGE Self - patient is the insured
== END ==
LOC: HO.CARD 10:57
PROVIDERS: PCP Internal Medicine; Visit Provider Nurse Practitioner Family
DX: I10 Essential (primary) hypertension (principal); I47.10 Supraventricular tachycardia, unspecified; I49.9 Cardiac arrhythmia, unspecified
CPT/HCPCS: 93242; 93306; Q9957

== ENCOUNTER → 2025-04-25 11:03 | Outpatient (BNV) | payer OTHER, SELFPAY | PROVIDERS: PCP Internal Medicine; Visit Provider Internal Medicine Cardiovascular Disease | DX: I49.9 Cardiac arrhythmia, unspecified (principal) | CPT/HCPCS: 93306 ==

== ENCOUNTER 2025-04-26 13:50 | Outpatient (AMB) | payer OTHER, SELFPAY ==
--- OUTSIDE RECORDS SUMMARY | 2023-08-19 09:27 | XMS_ITS | Continuity of Care Document ---
Author Organization [facility] Address [address] [place] [address] Phone Care Team Providers Care Adjunct Writing Instructor Name Role Phone Edward RIVAS FACS RVT [...] Providers Copied on Encounter [facility], [address] [place] [address] Dr [address] [place], [id number], [place] tel:[phone] CVR - [facility] No Information 3 Edward Gardiner. [address], [address], [place], [address], [place]. tel:[phone] Referring Provider: Vishal Brock MD, [address], [place], [address]. tel:[phone] [facility], [address] [place] [address] Dr [address]Mary [place], [id number], [place] tel:[phone] CVR - [facility] Encounter for follow-up examination after completed treatment for conditions other than malignant neoplasmPain in left leg 3 Edward Gardiner. [address], [address], [place], [address], [place]. tel:[phone] Referring Provider: Vishal Brock MD, [address], [place], [address]. tel:[phone] Office/Outpt E&M Established 15 Mins [facility], [address] [place] [address] Dr [address] [place] Alvarez [place], [id number], [place] tel:[phone] [facility] hypertension (idiopathic) with other complications of left lower extremity 3 Edward Gardiner. [address], [address], [place], [address], [place]. tel:[phone] Referring Provider: Vishal Brock MD, [address], [place], [address]. tel:[phone] Office/Outpt E&M Established 15 Mins [facility], [address] [place] [address] Dr [address] [address]Mary [place], [id number], [place] tel:[phone] [facility] htn w oth comp of bilateral low extrm 3 Edward RIVAS FACS RVT CARRIE Gardiner. [address], [address], [place], [address], [place]. tel:[phone] Referring Provider: Vishal Brock MD, [address], [place], [address]. tel:[phone] [place] [facility], [address] [place] [address] Dr [address] [address]Mary [place], [id number], [place] tel:[phone] CVR - [place] - [place] No Information 3 Edward RIVAS FACS RVT CARRIE Gardiner. [address], [address], [place], [address], [place]. [phone] Referring Provider: Vishal Brock MD, [address], [place], [address]. tel:[phone] [facility], [address] [place] [address] Dr [address]Mary [place], [id number], [place] tel:[phone] CVR - [place] - [place] Encntr for f/u exam aft trtmt for cond oth than malig neoplmVenous insufficiency (chronic) (peripheral) 3 Edward RIVAS FACS RVT CARRIE Gardiner. [address], [address], [place], [address], [place]. [phone] Referring Provider: Vishal Brock MD, [address], [place], [address]. tel:[phone] [facility], [address] [place] [address] [address]Mary [place], [id number], [place] tel:[phone] CVR - [place] Venous insufficiency (chronic) (peripheral) 3 Edward RIVAS FACS RVT CARRIE Gardiner. [address], [address], [place], [address], [place]. tel:[phone] Referring Provider: Vishal Brock MD, [address], [place], [address]. tel:[phone] [facility], [address] [place] [address] [address]Mary [place], [id number], [place] tel:[phone] CVR - [place] [facility] [place] Venous insufficiency (chronic) (peripheral) 3 Edward RIVAS FACS T CARRIE Gardiner. [address], [address], [place], [address], [place]. [phone] Referring Provider: Vishal Brock MD, [address], [place], [address]. 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 [address], [address], [place], [place], [id number] , [place]. [phone] Referring Provider: Vishal Brock MD, [address], [place], [address]. tel:[phone] [facility], [address] [place] [address] [address]Mary [place], [id number], [place] tel:[phone] CVR - [place] Encntr for f/u exam aft trtmt for cond oth than malig neoplmVenous insufficiency (chronic) (peripheral) 3 Edward RIVAS FACS T CARRIE Gardiner. [address], [address], [place], [address], [place]. [phone] Referring Provider: Vishal Brock MD, [address], [place], [address]. tel:[phone] [facility], [address] [place] [address] Dr [address]Mary [place], [id number], [place] tel:[phone] CVR - [place] Venous insufficiency (chronic) (peripheral) 3 Edward RIVAS FACS T CARRIE Gardiner. [address], [facility] [address], [place], [address], [place]. tel:[phone] Referring Provider: Vishal Brock MD, [address] [place] [address] Dr [address], [place], [address]. tel:[phone] [facility], [address], [place], [id number], [place] tel:[phone] CVR - [facility] Venous insufficiency (chronic) (peripheral) 3 Edward RIVAS FACS T CARRIE Gardiner. [address], [address], [place], [address], [place]. tel:[phone] Referring Provider: Vishal Brock MD, [address] [place] [address] Dr [address], [place], [address]. tel:[phone] Family History Family Member Type Diagnosis Age At Onset No Information Payers Payer name Insurance type Covered libertarian ID Authorchada tirama(s) Medical Assistance [facility] [id number] Social History Type Description Quantity Date Captured [...]
[2025-04-26 13:53] VITALS: BP 110/62; PULSE 73; TEMP 35.9; O2SAT 98; BMI 32.6
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
--- OUTSIDE RECORDS SUMMARY | 2025-04-26 13:54 | XMS_ITS | Patient Health Record ---
Author Organization [facility] Address [address] [place] [address] Care Team Providers Care Product Management Analyst Name Role Phone Олег Murphy MD Primary Care Provider Jack Kim [phone] Reason For Referral No Information Plan Of Treatment No Information Insurance Providers Payer Name Payer Address Payer Phone Subscriber Number Group Number Insured Name Patient Relationship to Insured Coverage Start Date Coverage End Date [facility] [address] [place] [phone] [id number] SARA PAGE Self - patient is the insured
--- OUTSIDE RECORDS SUMMARY | 2025-04-26 13:54 | XMS_ITS | Clinical Summary ---
Author Organization [facility] Address [address] [place] [address] Phone Care Team Providers Care Electric Locomotive Firer/Fireman Name Role Phone Vishal Brock MD Primary [...] patient's age to complete this topic Insurance [facility] PUBLIC PLANS Care Teams Electric Locomotive Firer/Fireman Relationship Specialty Start Date End Date Vishal Brock MD [address] [place] [address] [address] ROSARIO Harkins PCP - General 06/28/24
--- OUTSIDE RECORDS SUMMARY | 2025-04-26 13:54 | XMS_ITS | Patient Health Record ---
Author Organization [facility]na[facility]barra Address [address] [facility] [place] [address] Care Team Providers Care Manager Social Work Name Role Phone Jeffrey RIVAS, Олег Primary Care Provider Albert Clement Unavailable [phone] Allergies Allergen (clinical drug ingredient) Drug/Non Drug [...] Status W/U Status Risk Notes Problem Bursitis (85819863) Bursitis (727.3) Active confirmed Problem Myositis (03520011) Myositis (729.1) Active confirmed Problem Pain in limb (77110734) Pain in Limb (729.5) Active confirmed Problem Plantar fasciitis (075532809) Plantar Fasciitis (728.71) Active confirmed Plan Of Treatment Pending Test Test Name Order Date X ray : Foot, left 2V 07/09/2013 X ray : Foot, right 2V 07/09/2013 Insurance Providers Payer Name Payer Address Payer Phone Subscriber Number Group Number Insured Name Patient Relationship to Insured Coverage Start Date Coverage End Date [facility] [address] [place] [address] [id number] Monserrat Moore Self - patient is the insured Medical (General) History Medical History History ICD Code anxiety Hiatal hernia reflux chicken pox Surgical History Surgery Date(Month/Year) tumor removal from esophagus 2005 section 1994, 1997
== END 2025-04-26 14:46 | disposition home or self-care (01) ==
LOC: HO.HMCH 13:51
PROVIDERS: PCP Internal Medicine; Visit Provider Internal Medicine
DX: I10 Essential (primary) hypertension (principal); I49.9 Cardiac arrhythmia, unspecified; E78.00 Pure hypercholesterolemia, unspecified; F10.20 Alcohol dependence, uncomplicated; D50.9 Iron deficiency anemia, unspecified; K21.9 Gastro-esophageal reflux disease without esophagitis; K58.9 Irritable bowel syndrome, unspecified; M25.511 Pain in right shoulder; M25.512 Pain in left shoulder; M47.814 Spondylosis without myelopathy or radiculopathy, thoracic region; M47.812 Spondylosis without myelopathy or radiculopathy, cervical region; M54.42 Lumbago with sciatica, left side

== ENCOUNTER → 2025-04-26 13:50 | Outpatient (BNVA) | payer OTHER, SELFPAY | PROVIDERS: PCP Internal Medicine; Visit Provider Internal Medicine | DX: I10 Essential (primary) hypertension (principal); I49.9 Cardiac arrhythmia, unspecified; E78.00 Pure hypercholesterolemia, unspecified; D50.9 Iron deficiency anemia, unspecified; K21.9 Gastro-esophageal reflux disease without esophagitis; K58.9 Irritable bowel syndrome, unspecified; M25.511 Pain in right shoulder; M25.512 Pain in left shoulder; M47.814 Spondylosis without myelopathy or radiculopathy, thoracic region; M47.812 Spondylosis without myelopathy or radiculopathy, cervical region; M54.42 Lumbago with sciatica, left side; E55.9 Vitamin D deficiency, unspecified; I87.2 Venous insufficiency (chronic) (peripheral); F10.20 Alcohol dependence, uncomplicated; F41.9 Anxiety disorder, unspecified; F33.0 Major depressive disorder, recurrent, mild; F43.21 Adjustment disorder with depressed mood; E66.9 Obesity, unspecified; Z68.32 Body mass index [BMI] 32.0-32.9, adult | CPT/HCPCS: 96127; 99212 ==

== ENCOUNTER 2025-04-30 13:45 | Outpatient (AMB) | payer OTHER, SELFPAY ==
--- NOTE | 2025-04-30 14:06 | MHC.OFFVISPS ---
Intake Intake Visit Reasons: follow up Assistance Coordinator Required: No Allergies morphine Adverse Reaction (Unknown, Verified 04/26/25 14:28) withdrawals/sweats Medication List - Last Reconciled 04/30/25 by Betty Kumar APRN albuterol sulfate 90 mcg/actuation (ProAir HFA) 2 puffs inhalation Q6H PRN 30 days cholecalciferol (vitamin D3) 25 mcg PO DAILY 90 days cyclobenzaprine 10 mg PO TID PRN 30 days dicyclomine 10 mg PO QID PRN lansoprazole 30 mg PO DAILY 90 days lorazepam 1 mg PO Q12H PRN 90 days magnesium oxide 400 mg PO DAILY omega 1-vtn-qvc-fish oil 1,200 (144-216) mg (Fish Oil) 1 cap PO DAILY sertraline (Zoloft) 100 mg (2 x 50 mg) PO BEDTIME sucralfate (Carafate) 1 g PO DAILY HPI- Psychiatric Chief Complaint: follow up HPI Narrative: pt reports increased sadness and irritabilty; 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 no adverse effects; denies SI or HI; no ETOH abuse. did not like naltrexone - found it too sedating. Past Psychiatric History: no IPLOC; outp tx with prozac and ativan. hx of heavy alcohol use in past Mental Status Exam Mental Status Exam Patient Appearance: Well Grooomed Patient Orientation: Person, Place, Time and Situation Level of Consciousness: Awake and Appropriate Patient Behavior: Appropriate and Cooperative Mood Description: Anxious and Sad Affect Description: Anxious and Sad Patient Cognition Impaired: No Ability to Follow Directions: Good Speech Pattern: Clear and Coherent Memory Description: Intact Hallucinations: None Delusions: Not Present Thought Process: Intact and Goal Oriented Thought Content: positive for Intact and positive for Goal Oriented Judgement: Good Assessment and Plan Assessment & Plan (1) Complicated bereavement: Status: Acute Code(s): F43.21 - Adjustment disorder with depressed mood (2) Major depressive disorder, recurrent, mild: Status: Acute Code(s): F33.0 - Major depressive disorder, recurrent, mild (3) DARBY (generalized anxiety disorder): Status: Acute Code(s): F41.1 - Generalized anxiety disorder Medications: New diazepam (Valium) 2 mg PO DAILY PRN 2 tabs 0RF fear of flying Counseling and coordination of Care Pt. Self Management counseling: Exercise, Mod caffeine/ETOH intake, Nutrition education and improvement, Sleep hygiene, Behavior activation and Greif counseling Medication management counseling: Effectiveness, Side effects, Dosing range, Duration, Drug interaction and Adherence Diagnosis and Prognosis Counseling: Accuracy of diagnosis, Prognosis over time, Impact of diagnosis on life functions, Impact of family relationship, Problematic behaviors secondary to diagnosis and Adequacy of current interventions Details: I spent 45 minutes reviewing the record, seeing the patient and documenting in the medical record. Counseling provided to the patient/caregiver as outlined below. Addressed patient/caregiver concerns regarding current medication regime including effective adherence. Addressed patient/caregiver concerns regarding diagnosis and prognosis including accuracy of diagnosis, prognosis over time, impact of diagnosis. Addressed patient/caregiver concerns regarding impact of recent stressors. [facility] Medical History Annual physical exam Irregular bleeding Encounter for well woman exam with routine gynecological exam Fibroid Cervical spondylosis Heavy menses History of gastrointestinal stromal tumor (GIST) Wheezing Left foot pain Situational depression Tinea Left shoulder pain Family history of breast cancer Low back pain Paresthesia of left upper extremity Potential exposure to STD Epigastric pain Abdominal bloating At high risk for breast cancer Elbow injury Chest pain Calf pain Umbilical pain Right knee pain Mild anemia Sinus pressure Cough Left ankle pain Problematic vaginal discharge Pain of left great toe Status post fall Pre-op examination Major depressive disorder, recurrent, mild Hot flashes Venous insufficiency of both lower extremities Pure hypercholesterolemia SVT (supraventricular tachycardia) Cardiac arrhythmia Hx of esophageal ulcer Benign essential hypertension Vitamin D deficiency Bipolar disorder Alcoholism Obesity (BMI 30-39.9) Anxiety Bipolar 1 disorder Depression Surgical History History of breast augmentation Hx of nasal septoplasty History of incisional hernia repair Hx of colonoscopy Hx of section Hx of gastrostomy (~04/2002) Hx of endoscopy Family History Father Esophagus cancer, Onset Age: 63 Mother Breast cancer, Onset Age: 46 Maternal Grandfather Cancer Paternal Aunt Breast cancer Maternal Aunt Breast cancer Son MVA (motor vehicle accident) Social History Household Members: None Housing: House Are you a primary primary care coordinator to a significant other at home: No Do you presently have visiting nurse or other home services: No Alcohol intake: former Patient Tobacco Use Status: Current everyday Tobacco user Cigarettes Per Day: 5 Years Smoked: rarely- occasional smoker e-Cigarette/Vaping Use: Never Used Second Hand Smoke Exposure: Yes service: No Current occupational status: employed Cognitive needs: No Hearing needs: No Vision needs: Yes (Glasses) Social History: has good social support; work FT. 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
--- OUTSIDE RECORDS SUMMARY | 2025-04-30 14:31 | XMS_ITS | Patient Health Record ---
Author Organization [facility] Mirnawei Ybarra Address [address] [facility] [place] [address] Care Team Providers Care Veterinary Practitioner Name Role Phone Jeffrey RIVAS, Олег Primary Care Provider Albert Clement Unavailable [phone] Allergies Allergen (clinical drug ingredient) Drug/Non Drug [...] Status W/U Status Risk Notes Problem Bursitis (43489799) Bursitis (727.3) Active confirmed Problem Myositis (58319078) Myositis (729.1) Active confirmed Problem Pain in limb (37358050) Pain in Limb (729.5) Active confirmed Problem Plantar fasciitis (708581551) Plantar Fasciitis (728.71) Active confirmed Plan Of Treatment Pending Test Test Name Order Date X ray : Foot, left 2V 07/09/2013 X ray : Foot, right 2V 07/09/2013 Insurance Providers Payer Name Payer Address Payer Phone Subscriber Number Group Number Insured Name Patient Relationship to Insured Coverage Start Date Coverage End Date [facility] [address] [place] [address] [id number] Monserrat Moore Self - patient is the insured Medical (General) History Medical History History ICD Code anxiety Hiatal hernia reflux chicken pox Surgical History Surgery Date(Month/Year) tumor removal from esophagus 2005 section 1994, 1997
--- OUTSIDE RECORDS SUMMARY | 2025-04-30 14:31 | XMS_ITS | Clinical Summary ---
Author Organization [facility] Address [address] [place] [address] Phone Care Team Providers Care Greige Goods Examiner Name Role Phone Vishal Brock MD Primary [...] age to complete this topic Insurance [facility] PUBLIC PLANS Care Teams Greige Goods Examiner Relationship Specialty Start Date End Date Vishal Brock MD [address] [place] [address] [address] Thomas [address] ROSARIO Harkins PCP - General 06/28/24
--- OUTSIDE RECORDS SUMMARY | 2025-04-30 14:32 | XMS_ITS | Patient Health Record ---
Author Organization [facility] Address [address] [place] [address] Care Team Providers Care Life Skills Coach Name Role Phone Олег Murphy MD Primary Care Provider Jack Kim [phone] Reason For Referral No Information Plan Of Treatment No Information Insurance Providers Payer Name Payer Address Payer Phone Subscriber Number Group Number Insured Name Patient Relationship to Insured Coverage Start Date Coverage End Date [facility] [address] [place] [phone] [id number] SARA PAGE Self - patient is the insured
== END 2025-04-30 14:37 | disposition home or self-care (01) ==
LOC: HO.HOP 13:45
PROVIDERS: PCP Internal Medicine; Visit Provider Clinical Nurse Specialist Psychiatric/Mental Health
DX: F43.21 Adjustment disorder with depressed mood (principal); F33.0 Major depressive disorder, recurrent, mild; F41.1 Generalized anxiety disorder
CPT/HCPCS: 90833; 99213

== ENCOUNTER → 2025-04-30 13:45 | Outpatient (BNVA) | payer OTHER, SELFPAY | PROVIDERS: PCP Internal Medicine; Visit Provider Clinical Nurse Specialist Psychiatric/Mental Health | DX: F43.21 Adjustment disorder with depressed mood (principal); F33.0 Major depressive disorder, recurrent, mild; F41.1 Generalized anxiety disorder | CPT/HCPCS: 99212 ==

== ENCOUNTER 2025-05-28 15:09 | Outpatient (AMB) | payer OTHER, SELFPAY ==
--- NOTE | 2025-05-28 15:13 | MHC.OFFVISPS ---
Intake Intake Visit Reasons: f/u consultation Biology Specialist Required: No Allergies morphine Adverse Reaction (Unknown, Verified 04/26/25 14:28) withdrawals/sweats Medication List - Last Reconciled 05/28/25 by Betty Kumar APRN albuterol sulfate 90 mcg/actuation (ProAir HFA) 2 puffs inhalation Q6H PRN 30 days cholecalciferol (vitamin D3) 25 mcg PO DAILY 90 days cyclobenzaprine 10 mg PO TID PRN 30 days diazepam (Valium) 2 mg PO DAILY PRN dicyclomine 10 mg PO QID PRN lansoprazole 30 mg PO DAILY 90 days lorazepam 1 mg PO Q12H PRN 90 days magnesium oxide 400 mg PO DAILY omega 2-zew-nqs-fish oil 1,200 (144-216) mg (Fish Oil) 1 cap PO DAILY sertraline (Zoloft) 100 mg (2 x 50 mg) PO BEDTIME sucralfate (Carafate) 1 g PO DAILY HPI- Psychiatric Chief Complaint: f/u consultation HPI Narrative: pt reports increased sadness. 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 she continues to grieve the loss of son with anniversaries of his marriage, her birthday and the of son coming up in May; the grief is feeling more acute for past several weeks. She is not wanting to return to work, feels overwhelmed thinking about young children and the demands of special education. She has been looking into a new job. denies SI or HI; no ETOH abuse. Past Psychiatric History: no IPLOC; outp tx with prozac and ativan. hx of heavy alcohol use in past Subjective Subjective Subjective Medication Compliance: Yes Side effects from medications: No Review of Systems Medical Review of Systems: unchanged Mental Status Exam Mental Status Exam Patient Appearance: Well Grooomed Patient Orientation: Person, Place, Time and Situation Level of Consciousness: Awake and Appropriate Patient Behavior: Appropriate and Cooperative Mood Description: Anxious and Sad Affect Description: Anxious and Sad Patient Cognition Impaired: No Ability to Follow Directions: Good Speech Pattern: Clear and Coherent Memory Description: Intact Hallucinations: None Delusions: Not Present Thought Process: Intact and Goal Oriented Thought Content: positive for Intact and positive for Goal Oriented Judgement: Good Assessment and Plan Assessment & Plan (1) Complicated bereavement: Status: Acute Code(s): F43.21 - Adjustment disorder with depressed mood (2) Major depressive disorder, recurrent, mild: Status: Acute Code(s): F33.0 - Major depressive disorder, recurrent, mild (3) DARBY (generalized anxiety disorder): Status: Acute Code(s): F41.1 - Generalized anxiety disorder Plan trial increase of zoloft to 150 mg daily return in 3 weeks Medications: Changed From sertraline (Zoloft) 100 mg (2 x 50 mg) PO BEDTIME 60 tabs 2RF To sertraline (Zoloft) 150 mg (3 x 50 mg) PO BEDTIME 90 tabs 2RF Counseling and coordination of Care Pt. Self Management counseling: Exercise, Mod caffeine/ETOH intake, Nutrition education and improvement, Sleep hygiene, Behavior activation and Greif counseling Medication management counseling: Effectiveness, Side effects, Dosing range, Duration, Drug interaction and Adherence Diagnosis and Prognosis Counseling: Accuracy of diagnosis, Prognosis over time, Impact of diagnosis on life functions, Impact of family relationship, Problematic behaviors secondary to diagnosis and Adequacy of current interventions Details: I spent 50 minutes reviewing the record, seeing the patient and documenting in the medical record. Counseling provided to the patient/caregiver as outlined below. Addressed patient/caregiver concerns regarding current medication regime including effective adherence. Addressed patient/caregiver concerns regarding diagnosis and prognosis including accuracy of diagnosis, prognosis over time, impact of diagnosis. Addressed patient/caregiver concerns regarding impact of recent stressors. [facility] Medical History Annual physical exam Irregular bleeding Encounter for well woman exam with routine gynecological exam Fibroid Cervical spondylosis Heavy menses History of gastrointestinal stromal tumor (GIST) Wheezing Left foot pain Situational depression Tinea Left shoulder pain Family history of breast cancer Low back pain Paresthesia of left upper extremity Potential exposure to STD Epigastric pain Abdominal bloating At high risk for breast cancer Elbow injury Chest pain Calf pain Umbilical pain Right knee pain Mild anemia Sinus pressure Cough Left ankle pain Problematic vaginal discharge Pain of left great toe Status post fall Pre-op examination Major depressive disorder, recurrent, mild Hot flashes Venous insufficiency of both lower extremities Pure hypercholesterolemia SVT (supraventricular tachycardia) Cardiac arrhythmia Hx of esophageal ulcer Benign essential hypertension Vitamin D deficiency Bipolar disorder Alcoholism Obesity (BMI 30-39.9) Anxiety Bipolar 1 disorder Depression Surgical History History of breast augmentation Hx of nasal septoplasty History of incisional hernia repair Hx of colonoscopy Hx of section Hx of gastrostomy (~04/2002) Hx of endoscopy Family History Father Esophagus cancer, Onset Age: 63 Mother Breast cancer, Onset Age: 46 Maternal Grandfather Cancer Paternal Aunt Breast cancer Maternal Aunt Breast cancer Son MVA (motor vehicle accident) Social History Household Members: None Housing: House Are you a primary youth care worker to a significant other at home: No Do you presently have visiting nurse or other home services: No Alcohol intake: former Patient Tobacco Use Status: Current everyday Tobacco user Cigarettes Per Day: 5 Years Smoked: rarely- occasional smoker e-Cigarette/Vaping Use: Never Used Second Hand Smoke Exposure: Yes service: No Current occupational status: employed Cognitive needs: No Hearing needs: No Vision needs: Yes (Glasses) Social History: has good social support; work FT. Substance History: heavy ETOH use in past Trauma History: loss of son this year when he was hit by drunk diesel pile driver operator Coding Level of Care Code Est Pt Level 3 (82282) Therapy 30m w/E&M (17445) Diagnoses 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 Major depressive disorder, recurrent, mild F33.0 DARBY (generalized anxiety disorder) F41.1
--- OUTSIDE RECORDS SUMMARY | 2025-05-28 16:05 | XMS_ITS | Encounter Summary ---
Author Organization [facility] Address [address] [place] [address] Care Team Providers Care Employee Relations Consultant Name Role Phone Paola Ball MD Primary Care Provider Unavail able Blane Masters MD Primary Care Provider Vishal Leon MD Primary Care Provider Dareil galloway Encounter Details Date Type Department Care Team Description 03/22/2018 Pt. Non Urgent Medic al Question Adult Medicine [address] [address] Paola Ball MD Social History Tobacco Use [...] on filedocumented in this encounter Care Teams Employee Relations Consultant Relationship Specialty Start Date End Date Paola Ball MD PCP - General Internal Medicine 01/27/18 03/30/18 Blane Masters MD PCP - General Internal Medicine 03/31/18 06/27/24 Vishal Brock MD PCP - General Internal Medicine 06/28/24 documented as of this encounter
--- OUTSIDE RECORDS SUMMARY | 2025-05-28 16:05 | XMS_ITS | Encounter Summary ---
Author Organization [facility] Address [facility] [place] [address] Care Team Providers Care Occupational Safety Specialist Name Role Phone Blane Masters MD Primary Care Provider Unava ilable Vishal Brock MD Primary Care Provider Unava ilable Encounter Details Date Type Department Care Team Description 04/20/2018 Wafer Batter Mixer Report Medical Records [address] [place] [address] Kimberly Will, CHRIS Social History Tobacco Use [...] on filedocumented in this encounter Care Teams Occupational Safety Specialist Relationship Specialty Start Date End Date Blane Masters MD PCP - General Internal Medicine 03/31/18 06/27/24 Vishal Brock MD PCP - General Internal Medicine 06/28/24 documented as of this encounter
--- OUTSIDE RECORDS SUMMARY | 2025-05-28 16:05 | XMS_ITS | Patient Health Record ---
Author Organization [facility] Mirnawei Ybarra Address [address] [facility] [place] [address] Care Team Providers Care Accountant Controller Name Role Phone Jeffrey RIVAS, Олег Primary Care Provider Albert Clement Unavailable [phone] Allergies Allergen (clinical drug ingredient) Drug/Non Drug [...] Status W/U Status Risk Notes Problem Bursitis (91408884) Bursitis (727.3) Active confirmed Problem Myositis (33728161) Myositis (729.1) Active confirmed Problem Pain in limb (93011457) Pain in Limb (729.5) Active confirmed Problem Plantar fasciitis (309913877) Plantar Fasciitis (728.71) Active confirmed Plan Of Treatment Pending Test Test Name Order Date X ray : Foot, left 2V 07/09/2013 X ray : Foot, right 2V 07/09/2013 Insurance Providers Payer Name Payer Address Payer Phone Subscriber Number Group Number Insured Name Patient Relationship to Insured Coverage Start Date Coverage End Date [facility] [address] [place] [address] [id number] Monserrat Moore Self - patient is the insured Medical (General) History Medical History History ICD Code anxiety Hiatal hernia reflux chicken pox Surgical History Surgery Date(Month/Year) tumor removal from esophagus 2005 section 1994, 1997
--- OUTSIDE RECORDS SUMMARY | 2025-05-28 16:05 | XMS_ITS | Encounter Summary ---
Author Organization [facility] Address [address] [place] [address] Care Team Providers Care Twisting Frame Operator Name Role Phone Blane Masters MD Primary Care Provider Unava ilable Vishal Brock MD Primary Care Provider Unava ilable Encounter Details Date Type Department Care Team Description 04/10/2018 Pt. Non Urgent Medic al Question Adult Medicine [address] [address] Paola Ball MD Social History Tobacco Use [...] on filedocumented in this encounter Care Teams Twisting Frame Operator Relationship Specialty Start Date End Date Blane Masters MD PCP - General Internal Medicine 03/31/18 06/27/24 Vishal Brock MD PCP - General Internal Medicine 06/28/24 documented as of this encounter
--- OUTSIDE RECORDS SUMMARY | 2025-05-28 16:05 | XMS_ITS | Patient Health Record ---
Author Organization [facility] Address [address] [place] [address] Care Team Providers Care Appeals Nurse Name Role Phone Олег Murphy MD Primary Care Provider Jack Kim [phone] Reason For Referral No Information Plan Of Treatment No Information Insurance Providers Payer Name Payer Address Payer Phone Subscriber Number Group Number Insured Name Patient Relationship to Insured Coverage Start Date Coverage End Date [facility] [address] [place] [phone] [id number] SARA PAGE Self - patient is the insured
--- OUTSIDE RECORDS SUMMARY | 2025-05-28 16:05 | XMS_ITS | Clinical Summary ---
Author Organization [address] [facility] Address [address] [place] [address] Phone Care Team Providers Care Tension Machine Operator Name Role Phone Vishal Brock MD [...] age to complete this topic Insurance [facility] PUBLIC PLANS Care Teams Tension Machine Operator Relationship Specialty Start Date End Date Vishal Brock MD [address] [place] [address] Dr Thomas [address] ROSAR[address] Harkins PCP - General 06/28/24
--- OUTSIDE RECORDS SUMMARY | 2025-05-28 16:05 | XMS_ITS | Encounter Summary ---
Author Organization [facility] Address [facility] [place] [address] Care Team Providers Care All Terrain Vehicle Racer Name Role Phone Blane Masters MD Primary Care Provider Vishal Leon MD Primary Care Provider Dariel galloway Encounter Details Date Type Department Care Team Description 12/12/2023 Orders Only Medical Records [address] [place] [address] [facility] Social History Tobacco Use Types Packs/Day [...] encounter Results * OUTSIDE PLAIN FILM (12/01/2023) [facility] RADIOLOGY documented in this encounter Visit Diagnoses Not on filedocumented in this encounter Care Teams All Terrain Vehicle Racer Relationship Specialty Start Date End Date Blane Masters MD PCP - General Internal Medicine 03/31/18 06/27/24 Vishal Brock MD PCP - General Internal Medicine 06/28/24 documented as of this encounter
== END 2025-05-28 17:05 | disposition home or self-care (01) ==
LOC: HO.HOP 15:09
PROVIDERS: PCP Internal Medicine; Visit Provider Clinical Nurse Specialist Psychiatric/Mental Health
DX: F43.21 Adjustment disorder with depressed mood (principal); F33.0 Major depressive disorder, recurrent, mild; F41.1 Generalized anxiety disorder
CPT/HCPCS: 90833; 99213

== ENCOUNTER → 2025-05-28 15:09 | Outpatient (BNVA) | payer OTHER, SELFPAY | PROVIDERS: PCP Internal Medicine; Visit Provider Clinical Nurse Specialist Psychiatric/Mental Health | DX: F43.21 Adjustment disorder with depressed mood (principal); F33.0 Major depressive disorder, recurrent, mild; F41.1 Generalized anxiety disorder | CPT/HCPCS: 99212 ==

== ENCOUNTER 2025-06-06 03:46 | Emergency (ER) | payer OTHER, SELFPAY ==
--- OUTSIDE RECORDS SUMMARY | 2023-08-19 09:27 | XMS_ITS | Continuity of Care Document ---
Author Organization [facility] Address [address] [place] [address] Phone Care Team Providers Care Military Lawyer Name Role Phone Edward RIVAS FACS RVT [...] Providers Copied on Encounter [facility], [address] [place] [address] Dr [address]Mary [place], [id number], [place] tel:[phone] CVR - [facility] No Information 3 Edward Gardiner. [address], [address], [place], [address], [place]. tel:[phone] Referring Provider: Vishal Brock MD, [address], [place], [address]. tel:[phone] [facility], [address] [place] [address] Dr [address] 1000Mary [place], [id number], [place] tel:[phone] CVR - [facility] Encounter for follow-up examination after completed treatment for conditions other than malignant neoplasmPain in left leg 3 Edward Gardiner. [address] [facility], [address], [place], [address], [place]. tel:[phone] Referring Provider: Vishal Brock MD, [address], [place], [address]. tel:[phone] Office/Outpt E&M Established 15 Mins [facility], [address] [place] [address] Dr [address]Suite Mary Alvarez MD, [id number], [place] tel:[phone] [facility] ([facility]opathic) with other complications of left lower extremity 3 Edward Gardiner. [address] [address] [facility], [address], [place], [address], [place]. tel:[phone] Referring Provider: Vishal Brock MD, [address], [place], [address]. tel:[phone] Office/Outpt E&M Established 15 Mins [facility], [address] [place] [address] Dr [address] 1000Mary [place], [id number], [place] tel:[phone] [facility]tn w oth comp of bilateral low extrm 3 Edward RIVAS FACS RVT CARRIE Gardiner. [address], [address], [place], [address], [place]. tel:[phone] Referring Provider: Vishal Brock MD, [address], [place], [address]. tel:[phone] [place] [facility], [address] [place] [address] Dr [address] 1000Mary [place], [id number], [place] tel:[phone] CV[facility] - [place] [facility] [place] No Information 3 Edward RIVAS FACS RVT CARRIE Gardiner. [address], [address], [place], [address], [place]. [phone] Referring Provider: Vishal Brock MD, [address], [place], [address]. tel:[phone] [facility], [address] [place] [address] Dr [address] 1000Mary [place], [id number], [place] tel:[phone] CV[facility] - [place] [facility] [place] Encntr for f/u exam aft trtmt for cond oth than malig neoplmVenous insufficiency (chronic) (peripheral) 3 Edward RIVAS FACS RVT CARRIE Gardiner. [address], [address], [place], [address], [place]. [phone] Referring Provider: Vishal Brock MD, [address], [place], [address]. tel:[phone] [facility], [address] [place] [address] Suite [address]Suite 1000Mary [place], [id number], [place] tel:[phone] [facility] - [place] [facility] [place] Venous insufficiency (chronic) (peripheral) 3 Edward RIVAS FACS RVT CRARIE Gardiner. [address], [address], [place], [address], [place]. tel:[phone] Referring Provider: Vishal Brock MD, [address], [place], [address]. tel:[phone] [facility], [address] [place] [address] [address] 1000Mary [place], [id number], [place] tel:[phone] [facility] - [place] [facility] [place] Venous insufficiency (chronic) (peripheral) 3 Edward RIVAS FACS T CARRIE Gardiner. [address], [address], [place], [address], [place]. [phone] Referring Provider: Vishal Brock MD, [address], [place], [address]. tel:[phone] [facility], [address] [place] [address] [address]Suite 1000Mary MD, [id number], [place] tel:[phone] [facility] - [place] [facility] [place] Varicose veins of right low extrm w oth complications 3 Maggy Nguyen . [address] [facility], [address], [place], [place], [id number] , [place]. [phone] Referring Provider: Vishal Brock MD, [address], [place], [address]. tel:[phone] [facility], [address] [place] [address] [address]Suite 1000Mary MD, [id number], [place] tel:[phone] CV[facility] - [place] [facility] [place] Encntr for f/u exam aft trtmt for cond oth than malig neoplmVenous insufficiency (chronic) (peripheral) 3 Edward RIVAS FACS T CARRIE Gardiner. [address] [address] [facility], [address], [place], [address], [place]. [phone] Referring Provider: Vishal Brock MD, [address], [place], [address]. tel:[phone] [facility], [address] [place] [address] Dr [address] 1000Suite 1000Mary [place], [id number], [place] tel:[phone] [facility] - [place] [facility] [place] Venous insufficiency (chronic) (peripheral) 3 Edward RIVAS FACS T CARRIE Gardiner. [address], [facility] [address], [place], [address], [place]. tel:[phone] Referring Provider: Vishal Brock MD, [address] [place] [address] Dr [address], [place], [address]. tel:[phone] [facility], [address], [place], [id number], [place] tel:[phone] CVR - [facility] Venous insufficiency (chronic) (peripheral) 3 Edward RIVAS FACS T CARRIE Gardiner. [address] [facility], [address], [place], [address], [place]. tel:[phone] Referring Provider: Vishal Brock MD, [address] [place] [address] Dr [address], [place], [address]. tel:[phone] Family History Family Member Type Diagnosis Age At Onset No Information Payers Payer name Insurance type Covered republican ID Authorchada tirama(s) Medical Assistance [facility] [id number] Social History Type Description Quantity Date Captured [...]
[2025-06-06 03:49] VITALS: BP 149/80; PULSE 99; RESP 20; TEMP 36.2; O2SAT 96; BMI 32.3
[2025-06-06 04:00] VITALS: BP 120/82; PULSE 94; RESP 22; TEMP 37.1; O2SAT 97
--- OUTSIDE RECORDS SUMMARY | 2025-06-06 04:03 | XMS_ITS | Patient Health Record ---
Author Organization [facility] Mirnawei Ybarra Address [address] [facility] [place] [address] Care Team Providers Care Glassblower Name Role Phone Jeffrey RIVAS, Олег Primary Care Provider Albert Clement Unavailable [phone] Allergies Allergen (clinical drug ingredient) Drug/Non Drug [...] Status W/U Status Risk Notes Problem Bursitis (13985157) Bursitis (727.3) Active confirmed Problem Myositis (96839362) Myositis (729.1) Active confirmed Problem Pain in limb (82800147) Pain in Limb (729.5) Active confirmed Problem Plantar fasciitis (335031850) Plantar Fasciitis (728.71) Active confirmed Plan Of Treatment Pending Test Test Name Order Date X ray : Foot, left 2V 07/09/2013 X ray : Foot, right 2V 07/09/2013 Insurance Providers Payer Name Payer Address Payer Phone Subscriber Number Group Number Insured Name Patient Relationship to Insured Coverage Start Date Coverage End Date [facility] [address] [place] [address] [phone] [id number] Monserrat Moore Self - patient is the insured Medical (General) History Medical History History ICD Code anxiety Hiatal hernia reflux chicken pox Surgical History Surgery Date(Month/Year) tumor removal from esophagus 2005 section 1994, 1997
--- OUTSIDE RECORDS SUMMARY | 2025-06-06 04:03 | XMS_ITS | Clinical Summary ---
Author Organization [facility] Address [address] [place] [address] Phone Care Team Providers Care Broomcorn Press Feeder Name Role Phone Vishal Brock MD Primary [...] 2020 Zoster Vaccines (1 of 2) 2020 Cholesterol Screening (Lipid Panel) 07/28/2024 Colorectal Cancer Screening: Colonoscopy 07/28/2024 HIV Screening 07/28/2024 Hepatitis C Screening 07/28/2024 Social Influencers of Health Screening 07/28/2024 Depression Screening 10/03/2024 COVID-19 Vaccine (3 - 2024-2 6 season) 2025 05/26/2021, 05/05/2021 Influenza Vaccine (#1) 2025 HIB Vaccines Aged [...] age to complete this topic Insurance [facility] PUBLIC PLANS Care Teams Broomcorn Press Feeder Relationship Specialty Start Date End Date Vishal Brock MD [address] [place] [address] Dr Thomas [address] ROSARIO Harkins PCP - General 06/28/24
--- OUTSIDE RECORDS SUMMARY | 2025-06-06 04:03 | XMS_ITS | Patient Health Record ---
[facility] Address [address] [place] [address] Care Team Providers Care Report Specialist Name Role Phone Олег Murphy MD Primary Care Provider Jack Kim [phone] Reason For Referral No Information Plan Of Treatment No Information Insurance Providers Payer Name Payer Address Payer Phone Subscriber Number Group Number Insured Name Patient Relationship to Insured Coverage Start Date Coverage End Date [facility] [address] [place] [phone] [id number] SARA PAGE Self - patient is the insured
--- NOTE | 2025-06-06 04:20 | ED.GENADULT ---
HPI - General Adult General Chief complaint: General Medical Stated complaint: etoh? Time Seen by Provider: 06/06/25 04:08 Source: patient and EMS Mode of arrival: EMS Limitations: other History of Present Illness ED Provider: Dr. Chely Oneil HPI narrative: patient comes to the emergency room via ambulance. Patient states that she has been drinking a lot of alcohol. Patient states that she has been drinking a proximally 1 pt either of vodka or Lobito walker daily for about a week. Patient states that a bit over a year ago, she lost 1 of her sons to a drunk courier delivery driver. Patient states that his son was 34 years old, had just gotten and had a 1-year-old child. Patient states that she has been drinking a lot, trying to numb her feelings, patient states she is very anxious, sad, depressed. Patient does have a therapist. Patient states that today she got a text message from her [id number] regarding the court case. However, patient states that she was too drunk and did not want to see what the message says. Patient states that she is considering detox/ rehab. Patient willing to see the care team Related Data Home Medications ?Medication ?Instructions ?Recorded ?Confirmed omega 5-wji-ios-fish oil 1,200 mg 1 cap PO DAILY 01/23/25 05/28/25 (144 mg-216 mg) capsule (Fish Oil) Previous Rx's ?Medication ?Instructions ?Recorded albuterol sulfate 90 mcg/actuation 2 puff inhalation Q6H PRN 11/04/20 aerosol inhaler (ProAir HFA) shortness of breath or wheezing 30 days #8.5 grams cholecalciferol (vitamin D3) 25 25 mcg PO DAILY 90 days #90 tabs 01/01/25 mcg (1,000 unit) tablet cyclobenzaprine 10 mg tablet 10 mg PO TID PRN muscle spasm 30 03/01/25 days #90 caps magnesium oxide 400 mg (241.3 mg 400 mg PO DAILY #30 tabs 03/15/25 magnesium) tablet lorazepam 1 mg tablet 1 mg PO Q12H PRN anxiety 90 days 03/27/25 #180 tabs dicyclomine 10 mg capsule 10 mg PO QID PRN Abdominal 04/24/25 Discomfort #120 caps lansoprazole 30 mg capsule,delayed 30 mg PO DAILY 90 days #90 caps 04/24/25 release sucralfate 1 gram tablet (Carafate) 1 g PO DAILY #30 tabs 04/24/25 diazepam 2 mg tablet (Valium) 2 mg PO DAILY PRN fear of flying 04/30/25 #2 tabs sertraline 50 mg tablet (Zoloft) 150 mg (3 x 50 mg) PO BEDTIME #90 05/28/25 tabs ondansetron 4 mg disintegrating 4 mg PO Q6H PRN nausea and 06/06/25 tablet vomiting #10 tabs Allergies Allergy/AdvReac Type Severity Reaction Status Date / Time morphine AdvReac Unknown withdrawals Verified 06/06/25 03:54 /sweats Review of Systems Review of Systems: Constitutional : No Weight loss, No Fever, No Chills, No Night Sweats, No Fatigue, No Malaise ENT/Mouth : No Hearing loss, No Ear Pain, No Nasal Congestion, No Sinus Pain, No Hoarseness, No sore throat, No Rhinorrhea, No Swallowing Difficulty Eyes: No Eye Pain, No Swelling, No Redness, No Foreign Body, No Discharge, No Vision Changes Cardiovascular : No Chest Pain, No SOB, No Dyspnea on Exertion, No Orthopnea, No Edema, No Palpitations Respiratory : No Cough, No Sputum, No Wheezing, No Smoke Exposure, No Dyspnea Gastrointestinal : No Nausea, No Vomiting, No Diarrhea, No Constipation, No abdominal Pain, No Hematochezia, No Melena Genitourinary : no irregular bleeding, No Dysuria, No Urinary Frequency, No Hematuria, No Urinary Incontinence, No Urgency, No Flank Pain, No Urinary Flow Changes, No Hesitancy Musculoskeletal : No joint pain, No Myalgias, No Joint Swelling Skin : No Skin Lesions, No rash Neuro : No Weakness, No Numbness, No Paresthesias, No Loss of Consciousness, No Dizziness, No Headache Psych : complaining of anxiety, depression, no SI or HI, admits to daily heavy drinking to numb her feelings, no intention of committing suicide Heme/Lymph: No Bruising, No Bleeding,No Lymphadenopathy Endocrine : No Polyuria, No Polydipsia, No Temperature Intolerance PMFSH Past Medical History Medical History Annual physical exam Irregular bleeding Encounter for well woman exam with routine gynecological exam Fibroid Cervical spondylosis Heavy menses History of gastrointestinal stromal tumor (GIST) Wheezing Left foot pain Situational depression Tinea Left shoulder pain Family history of breast cancer Low back pain Paresthesia of left upper extremity Potential exposure to STD Epigastric pain Abdominal bloating At high risk for breast cancer Elbow injury Chest pain Calf pain Umbilical pain Right knee pain Mild anemia Sinus pressure Cough Left ankle pain Problematic vaginal discharge Pain of left great toe Status post fall Pre-op examination Major depressive disorder, recurrent, mild Hot flashes Venous insufficiency of both lower extremities Pure hypercholesterolemia SVT (supraventricular tachycardia) Cardiac arrhythmia Hx of esophageal ulcer Benign essential hypertension Vitamin D deficiency Bipolar disorder Alcoholism Obesity (BMI 30-39.9) Anxiety Bipolar 1 disorder Depression Surgical History History of breast augmentation Hx of nasal septoplasty History of incisional hernia repair Hx of colonoscopy Hx of section Hx of gastrostomy (~04/2002) Hx of endoscopy Family History Family History Father Esophagus cancer, Onset Age: 63 Mother Breast cancer, Onset Age: 46 Maternal Grandfather Cancer Paternal Aunt Breast cancer Maternal Aunt Breast cancer Son MVA (motor vehicle accident) Social History Social History Household Members: None Housing: House Are you a primary wound care center consultant to a significant other at home: No Do you presently have visiting nurse or other home services: No Alcohol intake: current Alcohol intake frequency: a few times a week Alcohol type: hard liquor Patient Tobacco Use Status: Current everyday Tobacco user Cigarettes Per Day: 5 Years Smoked: rarely- occasional smoker e-Cigarette/Vaping Use: Never Used Second Hand Smoke Exposure: Yes service: No Current occupational status: employed Cognitive needs: No Hearing needs: No Vision needs: Yes (Glasses) Physical Exam ED Exam Exam: Appearance: Alert. Oriented X3. intoxicated, clear speech, fairly coherent Eyes: Pupils equal, round and reactive to light. ENT: Pharynx normal. Neck: Normal inspection. Neck supple. No lymph nodes noted. No crepitus CVS: Normal heart rate and rhythm. Pulses normal. Normal S1 and S2 Respiratory: No respiratory distress. Breath sounds normal. No Wheezing. No rales Abdomen: Soft and nontender. No rigidity. No distention. Skin: Skin warm and dry. Normal skin color. Normal skin turgor. Extremities: No lower extremity edema. No Lacerations. No Rash Neuro: Oriented X 3. No motor deficit. No sensory deficit. Moving all extremities. No slurred speech. CN 2 through 12 grossly intact Psych: crying inconsolably Vital Signs: Vital Signs - 24 hr 06/06/25 03:49 06/06/25 04:00 06/06/25 06:00 Temperature 97.2 F 98.7 F 99.1 F Pulse Rate 99 94 86 Respiratory Rate 20 22 H 16 Blood Pressure 149/80 H 120/82 121/77 Pulse Oximetry 96 97 93 Oxygen Delivery Method Room Air Room Air Room Air 06/06/25 06:58 06/06/25 12:25 Temperature 99 F Pulse Rate 91 87 Respiratory Rate 17 18 Blood Pressure 117/68 124/68 Pulse Oximetry 96 98 Oxygen Delivery Method Room Air Room Air BMI result Body Mass Index 32.3 Course Course Course Narrative: patient admits to heavy alcohol drinking, denies SI or HI. Patient is still grieving the of her son, it has been a bit over a year. All of patient's labs pending care team consult pending at this time patient is not on it is Section 12 physician observation started at 04:25 Reevaluation(s) Reevaluation #1: Patient had a good night. Finally stopped crying. Patient requested IV fluids, states that she feels dehydrated. I reviewed patient's hematology and chemistry, no acute abnormality. ETOH level 190, U tox negative for drugs of abuse. Care team consult still pending Time: 06:20 Reevaluation #2: Time: 13:41 Date: 06/06/25 Provider: Abdirahman Akhtar MD Physician observation ended at 12:30 . Patient has been cleared for discharge by the CARE team. Will follow up as an outpatient. The patient has been drinking as part of a grief reaction. Her son was killed in a drunk driving accident 1 year ago. She describes having had recent problems with binge drinking. She is not suicidal. The care team feels she has can be discharged with a plan to [facility] and outpatient counseling.. Medications Administered Discontinued Medications Generic Name Dose Route Start Last Admin Trade Name Freq PRN Reason Stop Dose Admin Sodium Chloride 1,000 mls @ 999 mls/hr 06/06/25 05:30 06/06/25 07:33 Ns IV 06/06/25 06:30 Infused .Q1H1M KENNETH Infusion Lorazepam 2 mg 06/06/25 04:22 06/06/25 04:41 Lorazepam 1 Mg Tablet PO 06/06/25 04:23 2 mg ONCE ONE Administration Ondansetron HCl 4 mg 06/06/25 08:01 06/06/25 08:11 Ondansetron Odt 4 Mg Tab.Rapdis TRANSLINGU 06/06/25 08:02 4 mg ONCE ONE Administration Medical Decision Making Medical Decision Making MDM Narrative: patient has prolonged grieving. Patient trying to numb the pain with ETOH, but no intention of committing suicide. Patient agreeable to talk to a care team Differential Diagnosis Differential Diagnoses: The differential diagnosis associated with the presentation includes ( dysfunctional grieving, alcohol abuse, polysubstance abuse, anxiety, depression) Admission/Observation Consideration of admission/observation: Escalation of care including admission/observation considered ( it is possible that patient may need inpatient level of care. Care team consult pending to determine patient's disposition) Lab Data 06/06/25 04:56 06/06/25 04:56 Labs: Lab Results 06/06/25 06/06/25 Range/Units 04:56 05:35 WBC 6.1 (4.8-10.8) X10*3/uL RBC 4.36 (4.20-5.50) X10*6/uL Hgb 12.2 (12.0-16.0) g/dl Hct 36.1 L (37.0-47.0) % MCV 82.8 (80.0-98.0) fL MCH 28.0 (27.0-33.0) pg MCHC 33.8 (31.0-35.0) g/dl RDW 14.7 (11.0-16.0) % Plt Count 288 (160-400) X10*3/uL MPV 9.3 L (9.4-12.3) fL Immature Gran % (Auto) 0.3 (0.0-0.4) % Neut % (Auto) 54.8 (45-73) % Lymph % (Auto) 36.7 (20-40) % Mcpherson % (Auto) 6.0 (2-11) % Eos % (Auto) 1.0 (0-4) % Baso % (Auto) 1.2 (0-2) % Lymph # (Auto) 2.2 (1.2-4.9) X10*3/uL Mcpherson # (Auto) 0.4 (0.1-1.2) X10*3/uL Eos # (Auto) 0.1 (0.0-0.4) X10*3/uL Baso # (Auto) 0.1 (0.0-0.2) X10*3/uL Abs Immat Gran (auto) 0.02 (0.00-0.03) X10*3/uL Absolute Neuts (auto) 3.3 (2.0-8.3) x10*3/uL Absolute Nucleated RBC 0.000 (0.0-0.012) X10*3/uL Nucleated RBC % (auto) 0.0 (0.0-0.2) /100WBC Sodium 140 (135-145) mmol/L Potassium 4.0 (3.3-5.1) mmol/L Chloride 105 (96-108) mmol/L Carbon Dioxide 23 (22-29) mmol/L Anion Gap 16 (12-20) BUN 7 L (9-16) mg/dL Creatinine 0.69 (0.5-1.4) mg/dL Estim Creat Clear Calc 104.5 Estimated GFR > 60 Random Glucose 89 (60-115) mg/dL Calcium 8.2 L D (8.4-10.2) mg/dL Magnesium 2.0 (1.6-2.6) mg/dL Total Bilirubin 0.2 (0.0-1.0) mg/dL Direct Bilirubin < 0.2 (0.0-0.5) mg/dL AST 25 (5-31) U/L ALT 12 (0-31) U/L Alkaline Phosphatase 64 (39-117) U/L Total Protein 6.6 (6.5-8.0) g/dL Albumin 4.0 (3.5-5.0) g/dL Urine Opiates Screen Not Detected (Not Detect) Ur Buprenorphine Scrn Not Detected (Not Detect) ng/mL Ur Oxycodone Screen Not Detected (Not Detect) ng/mL Urine Methadone Screen Not Detected (Not Detect) ng/mL Urine Fentanyl Screen Not Detected (Not Detect) Ur Barbiturates Screen Not Detected (Not Detect) Ur Phencyclidine Scrn Not Detected (Not Detect) Ur Amphetamines Screen Not Detected (Not Detect) U Benzodiazepines Scrn Not Detected (Not Detect) Urine Cocaine Screen Not Detected (Not Detect) U Marijuana (THC) Screen Not Detected (Not Detect) Ethyl Alcohol 190 mg/dL Critical Care Time Critical Care Time Critical Care Time: Yes Total Critical Care Time: 35 Attestation: I have personally provided critical care time. Time includes review of lab data, radiology results, discussion with consultants, and monitoring for potential decompensation. Intervention performed as documented. Discharge Plan Discharge Clinical Impression: Complicated bereavement, Alcohol intoxication, Alcohol abuse Patient Disposition: Home, Self-Care Additional Instructions: You have an appointment next Tuesday on June 12 here at [facility] at 10:00. This is in room 404 at the hospital. Please also follow up with the counseling office as discussed with the CARE team counselor. In addition please follow up with your primary care doctor. Please do your best to minimize alcohol use until you follow up with the [facility]. If at any point you wish to speak to someone confidentially about how you are feeling you can call the confidential crisis line at [phone]. Return to the emergency room if you feel significantly worse. Prescriptions: New ondansetron 4 mg tablet,disintegrating 4 mg PO Q6H PRN (Reason: nausea and vomiting) Qty: 10 0RF No Action albuterol sulfate [ProAir HFA] 90 mcg/actuation HFA aerosol inhaler 2 puff inhalation Q6H PRN (Reason: shortness of breath or wheezing) 30 Days Qty: 8.5 1RF cholecalciferol (vitamin D3) 25 mcg (1,000 unit) tablet 25 mcg PO DAILY 90 Days Qty: 90 12RF cyclobenzaprine 10 mg tablet 10 mg PO TID PRN (Reason: muscle spasm) 30 Days Qty: 90 0RF lorazepam 1 mg tablet 1 mg PO Q12H PRN (Reason: anxiety) 90 Days Qty: 180 0RF omega 9-ehl-xor-fish oil [Fish Oil] 1,200 (144-216) mg Capsule 1 cap PO DAILY magnesium oxide 400 mg (241.3 mg magnesium) tablet 400 mg PO DAILY Qty: 30 3RF sucralfate [Carafate] 1 gram tablet 1 g PO DAILY Qty: 30 3RF dicyclomine 10 mg capsule 10 mg PO QID PRN (Reason: Abdominal Discomfort) Qty: 120 6RF lansoprazole 30 mg capsule,delayed release(DR/EC) 30 mg PO DAILY 90 Days Qty: 90 1RF diazepam [Valium] 2 mg tablet 2 mg PO DAILY PRN (Reason: fear of flying) Qty: 2 0RF sertraline [Zoloft] 50 mg tablet 150 mg PO BEDTIME Qty: 90 2RF Referrals: [facility] [Provider Group] Vishal Brock MD [Primary Care Provider, Internal Medicine] Print Language: Upper Sorbian
[2025-06-06 05:08] LABS: MANUAL DIFF FLAG NO
[2025-06-06 05:09] LABS: Hematocrit 36.1 % (37.0-47.0); Hemoglobin 12.2 g/dl (12.0-16.0); Imm Gran Abs Auto 0.02 X10*3/uL (0.00-0.03); Imm Gran Pct Auto 0.3 % (0.0-0.4); Lymphocytes Absolute Auto 2.2 X10*3/uL (1.2-4.9); Mean Corpuscular HGB Conc 33.8 g/dl (31.0-35.0); Mean Corpuscular Hemoglobin 28.0 pg (27.0-33.0); Mean Corpuscular Volume 82.8 fL (80.0-98.0); NRBC Abs Auto 0.000 X10*3/uL (0.0-0.012); NRBC Pct Auto 0.0 /100WBC (0.0-0.2); Platelet Count 288 X10*3/uL (160-400); Red Blood Count 4.36 X10*6/uL (4.20-5.50); White Blood Count 6.1 X10*3/uL (4.8-10.8)
[2025-06-06 05:33] LABS: Alanine Aminotransferase 12 U/L (0-31); Albumin Level 4.0 g/dL (3.5-5.0); Alkaline Phosphatase 64 U/L (39-117); Anion Gap 16 (12-20); Aspartate Amino Transferase 25 U/L (5-31); Blood Urea Nitrogen 7 mg/dL (9-16); Calcium 8.2 mg/dL (8.4-10.2); Carbon Dioxide 23 mmol/L (22-29); Chloride 105 mmol/L (96-108); Creatinine Clr Calc Pharmacy 104.5; Estimated Glomerular Filt Rate > 60; Magnesium 2.0 mg/dL (1.6-2.6); Potassium 4.0 mmol/L (3.3-5.1); Sodium 140 mmol/L (135-145); Total Protein 6.6 g/dL (6.5-8.0)
[2025-06-06 05:58] LABS: Cannabinoid Screen Urine Not Detected (Not Detect)
[2025-06-06 06:00] VITALS: BP 121/77; PULSE 86; RESP 16; TEMP 37.3; O2SAT 93
[2025-06-06 06:58] VITALS: BP 117/68; PULSE 91; RESP 17; O2SAT 96
--- NOTE | 2025-06-06 07:32 | PC.NURSE ---
Care of Pt assumed at change of shift. Pt is resting quietly on stretcher. VSS, NAD noted at this time. global marketing manager reports Pt c/o nausea, when this RN enters room Pt is noted to be resting quietly with eyes closed. Pt awaiting CT consult.
--- NOTE | 2025-06-06 09:52 | PC.NURSE ---
Recovery at bedside for eval.
[2025-06-06 12:25] VITALS: BP 124/68; PULSE 87; RESP 18; TEMP 37.2; O2SAT 98
[2025-06-06 13:42] VITALS: BP 124/68; PULSE 87; RESP 18; TEMP 37.2; O2SAT 98
--- NOTE | 2025-06-06 14:33 | PC.NURSE ---
[facility] Consult Recovery Note: Received a [facility] consult to discuss options available related to alcohol use disorder for Carla Perez before she was discharged from the ED. Carla Perez was tearful during the interaction as she explained the recent events that have led to increased alcohol amount and frequency over the previous week due to unresolved grief related to the loss of her son one year ago; court case was scheduled today. Carla Perez has a therapist and has an unfilled RX for naltrexone and was in agreement with a MAT intake to initiate consistent treatment. MAT Intake scheduled for Tuesday 06/12 at 10:00 a.m; .Carla Perez was given literature on naltrexone and Vivitrol along with alcohol harm reduction strategies.
--- NOTE | 2025-06-07 10:52 | MHC.CARE ---
Patient was seen by the CARE TEAM and referred to [facility]. Referral generated and emailed to Kelly @ [facility].
== END 2025-06-06 13:50 | disposition home or self-care (01) ==
PROVIDERS: Emergency Provider Emergency Medicine; PCP Internal Medicine
DX: F43.81 Prolonged grief disorder (principal); F10.129 Alcohol abuse with intoxication, unspecified; Y90.5 Blood alcohol level of 100-119 mg/100 ml; R11.0 Nausea; Z51.81 Encounter for therapeutic drug level monitoring; Z79.899 Other long term (current) drug therapy
CPT/HCPCS: 36415; 80048; 80076; 80307; 83735; 85025; 96360; 99284; S9485

== ENCOUNTER 2025-06-12 10:01 | Outpatient (AMB) | payer OTHER, SELFPAY ==
--- NOTE | 2025-06-12 10:16 | MHC.AM.SUB ---
Vital Signs 06/12/25 10:18 Height 5 ft 6 in Weight 206 lb BMI 33.2 BP 130/70 Pulse 82 Pulse Oximetry (%) 98 Intake Visit Reasons: MAT Intake Allergies morphine Adverse Reaction (Unknown, Verified 06/12/25 10:19) withdrawals/sweats HPI Comments Details: A 55-year-old female presents for a MAT intake r/t AUD. Reports intermittent episodes of binge drinking and denies any alcohol intake for the past several days. Patient is followed by a mental health provider for therapy and medication management. Reports naltrexone tablets 50 mg were prescribed by mental health provider. Patient hasn't started the medication to date. Engages in conversation re: of son due to an automobile accident one year ago and having difficulty due to upcoing court case for outcome of person charged with causing the accident. At present is on a leave from job. Review of Systems Const All systems reviewed & are unremarkable except as noted in HPI and below Physical Exam Vital Signs: Last Vital Signs Pulse 82 06/12/25 10:18 BP 130/70 06/12/25 10:18 Pulse Ox 98 06/12/25 10:18 BMI result Body Mass Index 33.2 Results AMB 14 Panel Urine Drug Screen Urine Marijuana (THC) Negative Last Edit by Noah Li CMA on 06/12/25 10:23 Urine Cocaine Negative Last Edit by Noah Li CMA on 06/12/25 10:23 Urine Morphine Negative Last Edit by Noah Li CMA on 06/12/25 10:23 Urine Methamphetamine Negative Last Edit by Noah Li CMA on 06/12/25 10:23 Urine Amphetamine Negative Last Edit by Noah Li CMA on 06/12/25 10:23 Urine Benzodiazepine Positive Last Edit by Noah Li CMA on 06/12/25 10:23 Urine Barbiturates Negative Last Edit by Noah Li CMA on 06/12/25 10:23 Urine Methadone Negative Last Edit by Noah Li CMA on 06/12/25 10:23 Urine Buprenorphine Negative Last Edit by Noah Li CMA on 06/12/25 10:23 Urine Tricyclic Antidepressant Negative Last Edit by Noah Li CMA on 06/12/25 10:23 Urine MDMA Negative Last Edit by Noah Li, MICHOACANO on 06/12/25 10:23 Urine Oxycodone Negative Last Edit by Noah Li CMA on 06/12/25 10:23 Urine Phencyclidine Negative Last Edit by Noah Li CMA on 06/12/25 10:23 Urine Propoxyphene Negative Last Edit by Noah Li, MICHOACANO on 06/12/25 10:23 Results Reviewed Results Reviewed: Laboratory Last Values POC Urine Buprenorphine Negative 06/12/25 10:20 POC Urine Morphine Negative 06/12/25 10:20 POC Urine Oxycodone Negative 06/12/25 10:20 POC Urine Methadone Negative 06/12/25 10:20 POC Urine Propoxyphene Negative 06/12/25 10:20 POC Urine Barbiturates Negative 06/12/25 10:20 POC U Tricyclic Antidpr Negative 06/12/25 10:20 POC Urine PCP Negative 06/12/25 10:20 POC Ur Amphetamines Negative 06/12/25 10:20 POC Ur Methamphetamine Negative 06/12/25 10:20 POC Urine MDMA Negative 06/12/25 10:20 POC Ur Benzodiazepine Positive 06/12/25 10:20 POC Urine Cocaine Negative 06/12/25 10:20 POC Ur Marijuana (THC) Negative 06/12/25 10:20 PFSH Medical History Annual physical exam Irregular bleeding Encounter for well woman exam with routine gynecological exam Fibroid Cervical spondylosis Heavy menses History of gastrointestinal stromal tumor (GIST) Wheezing Left foot pain Situational depression Tinea Left shoulder pain Family history of breast cancer Low back pain Paresthesia of left upper extremity Potential exposure to STD Epigastric pain Abdominal bloating At high risk for breast cancer Elbow injury Chest pain Calf pain Umbilical pain Right knee pain Mild anemia Sinus pressure Cough Left ankle pain Problematic vaginal discharge Pain of left great toe Status post fall Pre-op examination Major depressive disorder, recurrent, mild Hot flashes Venous insufficiency of both lower extremities Pure hypercholesterolemia SVT (supraventricular tachycardia) Cardiac arrhythmia Hx of esophageal ulcer Benign essential hypertension Vitamin D deficiency Bipolar disorder Alcoholism Obesity (BMI 30-39.9) Anxiety Bipolar 1 disorder Depression Surgical History History of breast augmentation Hx of nasal septoplasty History of incisional hernia repair Hx of colonoscopy Hx of section Hx of gastrostomy (~04/2002) Hx of endoscopy Family History Father Esophagus cancer, Onset Age: 63 Mother Breast cancer, Onset Age: 46 Maternal Grandfather Cancer Paternal Aunt Breast cancer Maternal Aunt Breast cancer Son MVA (motor vehicle accident) Social History Household Members: None Housing: House Are you a primary career services coordinator to a significant other at home: No Do you presently have visiting nurse or other home services: No Alcohol intake: current Alcohol intake frequency: a few times a week Alcohol type: hard liquor Patient Tobacco Use Status: Current everyday Tobacco user Cigarettes Per Day: 5 Years Smoked: rarely- occasional smoker e-Cigarette/Vaping Use: Never Used Second Hand Smoke Exposure: Yes service: No Current occupational status: employed Cognitive needs: No Hearing needs: No Vision needs: Yes (Glasses) Social History: has good social support; work FT. Substance History: heavy ETOH use in past Trauma History: loss of son this year when he was hit by drunk wheat combine driver Assessment & Plan Assessment & Plan (1) Alcohol use disorder: Code(s): F10.90 - Alcohol use, unspecified, uncomplicated Category: Medical Plan The plan of care is to begin naltrexone 50 mg tablets, 1/2 tablet for 3 days and then increase to 1 tablet daily. Encouraged to follow up with mental health provider to increase the frequency of therapy sessions and to engage in berevement support groups within the community. Follow-up in 1 month or sooner if needed. Orders: Orders AMB 14 Panel Urine Drug Screen Today Z51.81 - Encounter for therapeutic drug level monitoring Patient Instructions: - Start on naltrexone as prescribed by mental health provider. - Encouraged to engage in a bereavement support group. - Call with questions, concerns, or to report side effects/new onset of symptoms to [facility]. - Follow-up in 1 month or sooner if needed. 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 What is your current relationship status?: significant other Current PCP: Vishal Brock Date of last visit: upcoming 06/26/25 Referral Source: ED Consult to [facility] Substance Abuse History Substance Abuse History (includes route, frequency and quantity): Oxycodone product (prescribed), Benzodiazepines (prescribed) and Tobacco (10-12 cigarettes weekly) Age of first use: teenage Social History Domestic Violence concerns: none Children: 2 living Do you have a support system?: somewhat Current mode of transportation?: self Where are you currently residing?: [facility] [place] Drug Use Have you ever shared needles?: No Have you ever belonged to a needle exchange program?: No Do you buy needles at a pharmacy?: No Have you ever overdosed?: No Number of lifetime overdoses: 0 Have you ever been hospitalized for an overdose?: No Was Naloxone administered?: No Recovery History What is your longest time in recovery?: does not consume alcohol daily, once begins drinking cannot restrict Have you ever had inpatient treatment for your substance abuse disorder?: No Have you been in an inpatient detoxification program?: Yes Have you been in an inpatient Rehab/Fdc house?: Yes Have you been in an outpatient Methadone Maintenance program?: Yes Have you been in an outpatient Suboxone Maintenance program?: Yes Have you had a Recovery Support Funeral Service Practitioner/Embalmer?: Yes Have you had Peer Support?: No Behavioral Health History Do you have a current provider? If so, who?: Yes Silvia Kumar diagnosis: Depression Anxiety History of other addictive behavior: no History of inpatient psychiatric hospitalization? If so, how many? Most Recent? Where?: no History of self harming thoughts?: No History of homicidal or suicidal intentions?: No Medical Conditions Endocarditis?: No Skin Infection: No Seizure related to withdrawal or overdose: No Head or brain injury: No Hepatitis A (if yes, have you been treated?): No Hepatitis B (if yes, have you been treated?): No Hepatitis C (if yes, have you been treated?): No HIV (if yes, have you been treated?): No TB (if yes, have you been treated?): No Other: No Do you have any chronic pain conditions?: herniated disc in back Legal History History of incarceration: No Currently on parole or probation: No Court mandated programs: No Pending court cases: No DCF involvement: No
[2025-06-12 10:18] VITALS: BP 130/70; PULSE 82; O2SAT 98; BMI 33.2
--- OUTSIDE RECORDS SUMMARY | 2025-06-12 12:08 | XMS_ITS | Patient Health Record ---
Author Organization [facility] Mirnawei Ybarra Address [address] [facility] [place] [address] Care Team Providers Care Transfer Car Operator Drier Name Role Phone Jeffrey RIVAS, Олег Primary Care Provider Albert Clement Unavailable [phone] Allergies Allergen (clinical drug ingredient) Drug/Non Drug [...] Status W/U Status Risk Notes Problem Bursitis (20493767) Bursitis (727.3) Active confirmed Problem Myositis (88989575) Myositis (729.1) Active confirmed Problem Pain in limb (49634908) Pain in Limb (729.5) Active confirmed Problem Plantar fasciitis (903381537) Plantar Fasciitis (728.71) Active confirmed Plan Of Treatment Pending Test Test Name Order Date X ray : Foot, left 2V 07/09/2013 X ray : Foot, right 2V 07/09/2013 Insurance Providers Payer Name Payer Address Payer Phone Subscriber Number Group Number Insured Name Patient Relationship to Insured Coverage Start Date Coverage End Date [facility] [address] [place] [address] [phone] [id number] Monserrat Moore Self - patient is the insured Medical (General) History Medical History History ICD Code anxiety Hiatal hernia reflux chicken pox Surgical History Surgery Date(Month/Year) tumor removal from esophagus 2005 section 1994, 1997
--- OUTSIDE RECORDS SUMMARY | 2025-06-12 12:08 | XMS_ITS | Patient Health Record ---
Author Organization [facility] Address [address] [place] [address] Care Team Providers Care Director Sterile Processing Name Role Phone Олег Murphy MD Primary Care Provider Jack Kim [phone] Reason For Referral No Information Plan Of Treatment No Information Insurance Providers Payer Name Payer Address Payer Phone Subscriber Number Group Number Insured Name Patient Relationship to Insured Coverage Start Date Coverage End Date [facility] [address] [place] [phone] [id number] SARA PAGE Self - patient is the insured
== END 2025-06-12 13:49 | disposition home or self-care (01) ==
LOC: HO.HCC 10:02
PROVIDERS: PCP Internal Medicine; Visit Provider Clinical Nurse Specialist Psychiatric/Mental Health
DX: F10.90 Alcohol use, unspecified, uncomplicated (principal); Z51.81 Encounter for therapeutic drug level monitoring
CPT/HCPCS: 99203

== ENCOUNTER → 2025-06-12 10:01 | Outpatient (BNVA) | payer OTHER, SELFPAY | PROVIDERS: PCP Internal Medicine; Visit Provider Clinical Nurse Specialist Psychiatric/Mental Health | DX: F10.90 Alcohol use, unspecified, uncomplicated (principal); F17.210 Nicotine dependence, cigarettes, uncomplicated | CPT/HCPCS: 80307; 99202 ==

== ENCOUNTER 2025-06-13 14:56 | Outpatient (AMB) | payer OTHER, SELFPAY ==
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
--- OUTSIDE RECORDS SUMMARY | 2025-06-13 18:23 | XMS_ITS | Patient Health Record ---
Author Organization [facility] Address [address] [place] [address] Care Team Providers Care Director Call Name Role Phone Олег Murphy MD Primary Care Provider Jack Kim [phone] Reason For Referral No Information Plan Of Treatment No Information Insurance Providers Payer Name Payer Address Payer Phone Subscriber Number Group Number Insured Name Patient Relationship to Insured Coverage Start Date Coverage End Date [facility] [address] [place] [phone] [id number] SARA PAGE Self - patient is the insured
--- OUTSIDE RECORDS SUMMARY | 2025-06-13 18:23 | XMS_ITS | Patient Health Record ---
Author Organization [facility] Mirnawei Ybarra Address [address] [place] [address] Care Team Providers Care Food Beverage Supervisor Name Role Phone Jeffrey RIVAS, Олег Primary Care Provider Albert Clement Unavailable [phone] Allergies Allergen (clinical drug ingredient) Drug/Non Drug [...] Status W/U Status Risk Notes Problem Bursitis (12481658) Bursitis (727.3) Active confirmed Problem Myositis (25847429) Myositis (729.1) Active confirmed Problem Pain in limb (20352915) Pain in Limb (729.5) Active confirmed Problem Plantar fasciitis (447819343) Plantar Fasciitis (728.71) Active confirmed Plan Of Treatment Pending Test Test Name Order Date X ray : Foot, left 2V 07/09/2013 X ray : Foot, right 2V 07/09/2013 Insurance Providers Payer Name Payer Address Payer Phone Subscriber Number Group Number Insured Name Patient Relationship to Insured Coverage Start Date Coverage End Date [facility] [address] [place] [address] [id number] Monserrat Moore Self - patient is the insured Medical (General) History Medical History History ICD Code anxiety Hiatal hernia reflux chicken pox Surgical History Surgery Date(Month/Year) tumor removal from esophagus 2005 section 1994, 1997
== END 2025-06-13 15:23 | disposition home or self-care (01) ==
LOC: HO.HOP 14:56
PROVIDERS: PCP Internal Medicine; Visit Provider Clinical Nurse Specialist Psychiatric/Mental Health
DX: F43.21 Adjustment disorder with depressed mood (principal); F33.0 Major depressive disorder, recurrent, mild; F41.1 Generalized anxiety disorder; F43.10 Post-traumatic stress disorder, unspecified
CPT/HCPCS: 99214

== ENCOUNTER → 2025-06-13 14:56 | Outpatient (BNVA) | payer OTHER, SELFPAY | PROVIDERS: PCP Internal Medicine; Visit Provider Clinical Nurse Specialist Psychiatric/Mental Health | DX: F43.23 Adjustment disorder with mixed anxiety and depressed mood (principal); F33.0 Major depressive disorder, recurrent, mild; F43.10 Post-traumatic stress disorder, unspecified | CPT/HCPCS: 99212 ==

== ENCOUNTER 2025-06-26 15:24 | Outpatient (AMB) | payer OTHER, SELFPAY ==
[2025-06-26 15:27] VITALS: BP 110/76; PULSE 89; O2SAT 98; BMI 32.8
--- NOTE | 2025-06-26 15:27 | MHC.PC.OV ---
Vital Signs 06/26/25 15:27 Height 5 ft 6 in Weight 203 lb 4 oz BMI 32.8 BP 110/76 Blood Pressure Location Lt brachial Position Sitting Pulse 89 Pulse Source Pulse Oximeter Pulse Oximetry (%) 98 Oxygen Delivery Method Room Air Intake Visit Reasons: annual exam Manager Regulatory Required: No Accompanied by: Self / Same As Patient Allergies morphine Adverse Reaction (Unknown, Verified 06/26/25 15:45) withdrawals/sweats Medication List - Last Reconciled 06/26/25 by Vishal Brock MD albuterol sulfate 90 mcg/actuation (ProAir HFA) 2 puffs inhalation Q6H PRN 30 days cholecalciferol (vitamin D3) 25 mcg PO DAILY 90 days cyclobenzaprine 10 mg PO TID PRN 30 days dicyclomine 10 mg PO QID PRN lansoprazole 30 mg PO DAILY 90 days lorazepam 1 mg PO Q12H PRN 90 days magnesium oxide 400 mg PO DAILY naltrexone 50 mg PO DAILY sertraline 100 mg PO BID sucralfate (Carafate) 1 g PO DAILY Tobacco use date assessed: 06/26/25 Dental Screening Dental Screen Date: 06/26/25 Did you have a dental visit in the last 12 months?: Yes Did you have a dental problem in the last 6 months where you did not have access to dental care?: No Was dental information given to patient?: Patient has dentist HPI annual exam HPI Details Patient comes in today for her annual physical examination States that she is still experiencing increased depression and suffered a relapse again with her drinking just a few weeks ago States that this time of the year is particularly tough for her as this is around the time when her son was killed by a drunken local combination truck driver a couple of years ago She is now on Sertraline 100 mg BID and Naltrexone 50 mg QD and continues to follow up with psychiatry regularly for her mood disorder She denies any headaches or dizziness Denies any chest pains, no increased SOB No nausea/vomiting, no abdominal pain No change in bowel habits noted She denies any acute urinary symptoms She had her follow up labs done a couple of weeks ago - to discuss her results She will be due for her repeat colonoscopy in 2028 Her annual mammogram was last done a couple of months ago in April 2025 Her last pap smear was done on 05/20/2023 and she was just seen by Dr. Hernandez for her gynecology exam back in March 2025 She is also requesting for a referral for lung cancer screening [facility] Medical History (Updated 06/26/25 @ 15:50 by Vishal Brock MD) Irregular bleeding Fibroid Cervical spondylosis Heavy menses History of gastrointestinal stromal tumor (GIST) Situational depression Tinea Family history of breast cancer Low back pain Paresthesia of left upper extremity Epigastric pain Abdominal bloating At high risk for breast cancer Elbow injury Chest pain Umbilical pain Mild anemia Sinus pressure Left ankle pain Problematic vaginal discharge Pain of left great toe Status post fall Major depressive disorder, recurrent, mild Hot flashes Venous insufficiency of both lower extremities Pure hypercholesterolemia SVT (supraventricular tachycardia) Cardiac arrhythmia Hx of esophageal ulcer Benign essential hypertension Vitamin D deficiency Bipolar disorder Alcoholism Obesity (BMI 30-39.9) Anxiety Bipolar 1 disorder Depression Surgical History History of breast augmentation Hx of nasal septoplasty History of incisional hernia repair Hx of colonoscopy Hx of section Hx of gastrostomy (~04/2002) Hx of endoscopy Family History Father Esophagus cancer, Onset Age: 63 Mother Breast cancer, Onset Age: 46 Maternal Grandfather Cancer Paternal Aunt Breast cancer Maternal Aunt Breast cancer Son MVA (motor vehicle accident) Social History Household Members: None Housing: House Are you a primary health care administrator to a significant other at home: No Do you presently have visiting nurse or other home services: No Alcohol intake: current Alcohol intake frequency: a few times a week Alcohol type: hard liquor Patient Tobacco Use Status: Current everyday Tobacco user Cigarettes Per Day: 5 Years Smoked: rarely- occasional smoker e-Cigarette/Vaping Use: Never Used Second Hand Smoke Exposure: Yes service: No Current occupational status: employed Cognitive needs: No Hearing needs: No Vision needs: Yes (Glasses) Female Reproductive History Menstrual Age of Menarche: 14 Questionnaire Thrive Questionnaire Date Thrive assessed: 03/05/25 I am a: Patient What is your living situation today?: I have a steady place to live Within the past 12 months, did the food you bought not last and you didn't have the money to get more?: I choose not to answer this question Within the past 12 months, did you worry whether your food would run out before you got money to buy more?: I choose not to answer this question Do you have trouble paying for medicines?: Yes Do you have trouble getting transportation to medical appointments?: No Do you have trouble paying your heating and electricity bill?: Yes Do you have trouble taking care of your child, family member or friend?: I choose not to answer this question Do you have trouble with day-to-day activities such as bathing, preparing meals, shopping, managing finances, etc.?: Yes Are you currently unemployed and looking for a job?: I choose not to answer this question Are you interested in more education?: Yes THRIVE Score: 1 AUDIT C Alcohol Use Questionnaire (AUDIT-C) 1. How often do you have a drink containing alcohol?: 2-3 times a week 2. How many drinks containing alcohol do you have on a typical day when you are drinking?: 5 or 6 3. How often do you have six or more drinks on one occasion?: Less than monthly Total Score: 6 Score Reviewed/Action Taken: Yes DARBY-7 AMB Questionnaire DARBY-7 Date DARBY - 7 assessed: 04/26/25 Source: Developed by Drs. Jack Hyde, Bertha Washington, Lon Tijerina and colleagues, with an educational nayeli from [employer]. Review of Systems Const Denies chills, Denies fatigue, Denies fever(s), Denies headache(s) and Denies malaise Eyes Denies blurry vision, Denies change in vision, Denies irritation and Denies itchy eyes ENT Denies dysphagia, Denies dizziness, Denies otalgia, Denies headache(s), Denies nasal congestion, Reports neck pain (chronic), Denies odynophagia, Denies sinus pain and Denies sore throat Card Denies chest pain, Denies rapid heart rate, Denies irregular heart rhythm, Denies palpitations and Denies dyspnea Resp Denies chest congestion, Denies cough, Denies dyspnea and Denies wheezing GI Denies abdominal pain, Denies bloating, Denies constipation, Denies dysphagia, Denies heartburn, Denies diarrhea, Denies nausea, Denies odynophagia and Denies vomiting Denies hematuria, Denies difficulty voiding, Denies dysuria, Denies urinary incontinence and Denies urinary urgency Musc Reports back pain (over the lower back, on and off), Denies arthralgias, Denies joint swelling, Denies muscle weakness and Reports neck pain (chronic) Skin/Breast Denies breast pain, Denies breast mass, Denies change in pigmentation, Denies lesions, Denies rash and Denies unusual bruising Neuro Denies dizziness, Denies headache(s) and Denies paresthesias Psych Reports anxiety and Reports depression (increased) Endo Denies fatigue and Denies palpitations Jomar/Lymph Denies easy bruising Aller/Immun Denies itchy eyes and Denies wheezing Physical exam (Primary Care) Vital Signs: Last Vital Signs Pulse 89 06/26/25 15:27 BP 110/76 06/26/25 15:27 Pulse Ox 98 06/26/25 15:27 Oxygen Delivery Method Room Air 06/26/25 15:27 BMI result Body Mass Index 32.8 Tobacco/Smoking Status: Tobacco use Status Tobacco use date assessed 06/26/25 06/26/25 15:31 Patient Tobacco Use Status Current everyday Tobacco 06/26/25 15:31 Tobacco use type 06/12/25 11:34 e-Cigarette/Vaping Use Never Used 06/26/25 15:31 Thrive Assessment: Date of Thrive Assessment Date Thrive assessed 03/05/25 06/26/25 15:31 Const General: no acute distress, alert and awake Orientation/consciousness: patient oriented x3 HENMT Head: Yes normocephalic and Yes atraumatic Ears: external ears normal, TM's normal bilaterally and EAC's normal General nose exam: No nasal discharge present Face and sinus: Yes normal facial exam and Yes sinuses nontender Teeth and gingiva: dentition normal Throat: Yes posterior oropharynx normal and Yes tonsils normal (no TP congestion) Eyes Eyelids: Yes eyelids normal Conjunctivae: conjunctivae normal Pupils: Equal, round and reactive pupils present EOM: EOMs intact bilaterally Neck Neck: No lymphadenopathy and Yes tender Thyroid: Thyroid normal Resp Auscultation: clear to auscultation bilaterally, no rales and no wheezes Cardio Rate: regular rate Rhythm: regular rhythm Heart sounds: no murmurs GI Palpation (GI): Soft to palpation, nontender and No hepatosplenomegaly present Auscultation: normal bowel sounds General: Yes no CVA tenderness Back/Spine/Pelvis Back: no CVA tenderness Cervical Spine: Cervical spine tenderness Thoracic/Lumbar Spine: lumbar spinal tenderness Skin Lesions: no lesions Rashes: no rashes Neuro General: patient oriented x3, moves all extremities, no focal motor deficits and CN's II-XI intact bilaterally Cranial nerves: Yes Equal, round and reactive pupils present Cognition (Neuro): normal cognition Gait exam (Neuro): Normal gait present Extrem General: Yes no clubbing, cyanosis or edema Results Reviewed Results Reviewed: Laboratory Tests 06/06/25 04:56 WBC 6.1 Hgb 12.2 Hct 36.1 L Plt Count 288 Sodium 140 Potassium 4.0 Creatinine 0.69 Estimated GFR > 60 Random Glucose 89 Calcium 8.2 L D Magnesium 2.0 AST 25 ALT 12 Coding Level of Care Code Est Pt Prev Care 40-64y(75162) Diagnoses Annual physical exam Z00.00 Cardiac arrhythmia, unspecified cardiac arrhythmia type I49.9 Arrhythmia type: unspecified cardiac arrhythmia Benign essential hypertension I10 Pure hypercholesterolemia E78.00 Iron deficiency anemia, unspecified iron deficiency anemia type D50.9 Anemia type: iron deficiency Iron deficiency anemia type: unspecified iron deficiency Gastroesophageal reflux disease without esophagitis K21.9 Esophagitis presence: without esophagitis Irritable bowel syndrome, unspecified type K58.9 Irritable bowel syndrome type: unspecified Acute pain of both shoulders M25.511; M25.512 Chronicity: acute Thoracic spondylosis M47.814 Cervical spondylosis M47.812 Left-sided low back pain with left-sided sciatica, unspecified chronicity M54.42 Chronicity: unspecified Back pain laterality: left Vitamin D deficiency E55.9 Venous insufficiency of both lower extremities I87.2 Alcoholism F10.20 Anxiety F41.9 Major depressive disorder, recurrent, mild F33.0 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 Current occasional smoker Z72.0 Obesity (BMI 30-39.9) E66.9 Assessment & Plan Assessment & Plan (1) Annual physical exam: Code(s): Z00.00 - Encounter for general adult medical examination without abnormal findings Category: Medical Plan: Results of her labs done a few weeks ago reviewed and discussed with patient but these were mostly non-fasting labs and did not include a lot of her conditions that we check for or monitor routinely Will send patient for her routine fasting follow up labs SÁNCHEZ to compelte her annual exam today She will be due for her repeat colonoscopy in 2028 Her annual mammogram was last done a couple of months ago in April 2025 Her last pap smear was done on 05/20/2023 and she was just seen by Dr. Hernandez for her gynecology exam back in March 2025 (2) Cardiac arrhythmia: Code(s): I49.9 - Cardiac arrhythmia, unspecified Category: Medical Qualifiers: Arrhythmia type: unspecified cardiac arrhythmia Qualified Code(s): I49.9 - Cardiac arrhythmia, unspecified Plan: She most likely has occasional SVTs - extended Holter monitor revealed only occasional SVTs that did not correlate with patient's symptoms Her palpitations have reportedly not occurred much lately She was on Metoprolol ER PRN to help keep her symptoms in check but patient states that she has not been taking this in a while now Follow-up with cardiology as scheduled (3) Benign essential hypertension: Code(s): I10 - Essential (primary) hypertension Category: Medical Plan: Reinforced low sodium diet - goal is systolic BP of 120 mm or less She has Metoprolol ER 50 mg QD but was taking this more for her arrhythmia/palpitations and states that she has not really been taking Metoprolol for a while now and had it removed from her medication list at her last visit She is advised to continue monitoring her blood pressure regularly (4) Pure hypercholesterolemia: Code(s): E78.00 - Pure hypercholesterolemia, unspecified Category: Medical Plan: She has not had her cholesterol levels rechecked recently - they were still slightly elevated when they were last checked in May 2024, with her total cholesterol at 219 mg/dl and LDL cholesterol at 149 mg/dl Reinforced low cholesterol diet Patient has declined being started on cholesterol-lowering medications in the past and would like to continue with diet modification alone at this time Will have her recheck her labs and fasting lipids [facility] for follow up (5) Anemia: Code(s): D64.9 - Anemia, unspecified Category: Medical Qualifiers: Anemia type: iron deficiency Iron deficiency anemia type: unspecified iron deficiency Qualified Code(s): D50.9 - Iron deficiency anemia, unspecified Plan: This is primarily due to iron deficiency as her iron level was low when last checked a few years ago; she also could not tolerate oral iron supplements in the past She was referred to hematology for consideration for IV iron infusion - was seen by hematology back in December 2022 and has received Venofer infusion 200 mg weekly x 5 doses Her anemia has improved/corrected since and her most recent H/H done a few weeks ago is at 12.2 and 36.1 respectively Follow up with hematology as scheduled (6) GERD (gastroesophageal reflux disease): Code(s): K21.9 - Gastro-esophageal reflux disease without esophagitis Category: Medical Qualifiers: Esophagitis presence: without esophagitis Qualified Code(s): K21.9 - Gastro-esophageal reflux disease without esophagitis Plan: Dietary restrictions reinforced Continue Lansoprazole 30 mg QD and Sucralfate 1 gm BID Follow up with GI as scheduled (7) IBS (irritable bowel syndrome): Code(s): K58.9 - Irritable bowel syndrome, unspecified Category: Medical Qualifiers: Irritable bowel syndrome type: unspecified Qualified Code(s): K58.9 - Irritable bowel syndrome without diarrhea Plan: Continue Dicyclomine 10 mg QID PRN; also takes Compazine 5 mg TID PRN Follow up with GI as scheduled (8) Bilateral shoulder pain: Code(s): M25.511 - Pain in right shoulder; M25.512 - Pain in left shoulder Category: Medical Qualifiers: Chronicity: acute Qualified Code(s): M25.511 - Pain in right shoulder; M25.512 - Pain in left shoulder Plan: X-rays of both shoulders done a few months ago revealed (+) supraspinatus calcific tendinosis in the right shoulder; the left shoulder x-rays came back normal Have advised patient that if her shoulder continues to bother her a lot, we can refer her to either Orthopedics or Physical therapy for further management (9) Thoracic spondylosis: Comment: 2013 thoracic spine xray shows spondylosis and multilevel osteophytes so consider repeat study and possible MRI of spine for her continued pain not r/t eating or bowel movement. Code(s): M47.814 - Spondylosis without myelopathy or radiculopathy, thoracic region Category: Medical Plan: Reinforced activity and weight-lifting restrictions Continue Cyclobenzaprine 10 mg TID PRN and Meloxicam 15 mg QD with food PRN (10) Cervical spondylosis: Code(s): M47.812 - Spondylosis without myelopathy or radiculopathy, cervical region Category: Medical Plan: Cervical spine x-rays done a few years ago revealed only mild cervical spondylolysis Will consider referring her to physical therapy if symptoms persist or get worse Patient also believes that majority of her neck and back symptoms and also her more recent shoulder symptoms are likely due to her enlarged breasts and is hoping that these will all improve if she can get her saline implants removed (11) Low back pain with left-sided sciatica: Code(s): M54.42 - Lumbago with sciatica, left side Category: Medical Qualifiers: Chronicity: unspecified Back pain laterality: left Qualified Code(s): M54.42 - Lumbago with sciatica, left side Plan: Lumbar spine x-rays done last year revealed (+) mild spondylosis of the lumbosacral spine that appear slightly progressed compared to prior She has been referred to physical therapy for further evaluation and management - have advised patient that before insurance will approve an MRI of the lumbar spine, she will need try physical therapy first (12) Vitamin D deficiency: Code(s): E55.9 - Vitamin D deficiency, unspecified Category: Medical Plan: Continue Vitamin D3 2000 units QD (13) Venous insufficiency of both lower extremities: Code(s): I87.2 - Venous insufficiency (chronic) (peripheral) Category: Medical Plan: S/P laser venous ablation of both legs with Dr. Noreen Leon (right leg in late November 2022 and left leg in January 2023) Follow up with vascular surgery as scheduled (14) Alcoholism: Code(s): F10.20 - Alcohol dependence, uncomplicated Category: Medical Plan: She is counseled again on staying sober - she suffered a relapse recently as this time of the year is when her son was killed by a drunken local combination truck driver last year and is particularly hard on her Continue Chlordiazepoxide 25 mg 2 tabs every 6 to 8 hours PRN and Naltrexone 50 mg QD; continue Magnesium Oxide 500 mg BID - states that the magnesium tablets helps with her leg cramps as well (15) Anxiety: Code(s): F41.9 - Anxiety disorder, unspecified Category: Medical Plan: Continue Lorazepam 1 mg 1/2 to 1 tablet BID PRN Follow up with psychiatry as scheduled (16) Major depressive disorder, recurrent, mild: Code(s): F33.0 - Major depressive disorder, recurrent, mild Category: Medical Plan: Continue Sertraline 100 mg BID Follow up with outpatient psychiatry as scheduled (17) Complicated bereavement: Code(s): 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 - Adjustment disorder with depressed mood Category: Medical Plan: She has been feeling very depressed and grief-stricken since her son suddenly following a motor vehicle accident involving a drunken local combination truck driver back on 05/12/[address] trial involving the local combination truck driver is coming up soon and she would like to stay on her current Rx to help her get through the next few months of the trial (18) Current occasional smoker: Code(s): Z72.0 - Tobacco use Category: Social Hx Plan: Patient is requesting for a referral for lung cancer screening Have advised her that if she has been smoking occasionally all these years, her smoking history may not be enough to qualify her for a CT lung cancer screening but I will refer her to thoracic surgery and have them do their own screening to determine if she is eligible (19) Obesity (BMI 30-39.9): Code(s): E66.9 - Obesity, unspecified Category: Medical Plan: Reinforced diet/exercise as tolerated/lose weight Per request, we tried starting her on Semaglutide 0.25 mg SQ once a week to help her lose some weight at her last visit but the Rx was not approved by her insurance; they approved Wegovy instead but patient has not started on the Rx yet Plan Follow up in 4 months Orders: Orders TSH reflex Free T4 06/26/25 E78.00 - Pure hypercholesterolemia, unspecified, Z00.00 - Encounter for general adult medical examination without abnormal findings Vitamin D 25-OH Total 06/26/25 E55.9 - Vitamin D deficiency, unspecified, Z00.00 - Encounter for general adult medical examination without abnormal findings Comprehensive [place]. Panel Fast 06/26/25 E78.00 - Pure hypercholesterolemia, unspecified, Z00.00 - Encounter for general adult medical examination without abnormal findings Lipid Panel 06/26/25 E78.00 - Pure hypercholesterolemia, unspecified, Z00.00 - Encounter for general adult medical examination without abnormal findings UA CC w/rflx Micro + Cult 06/26/25 R30.0 - Dysuria, Z00.00 - Encounter for general adult medical examination without abnormal findings Vitamin B12 and Folate 06/26/25 E53.8 - Deficiency of other specified B group vitamins, Z00.00 - Encounter for general adult medical examination without abnormal findings Referrals Thoracic/General Surgery Referral Z12.2 - Encounter for screening for malignant neoplasm of respiratory organs
--- OUTSIDE RECORDS SUMMARY | 2025-06-26 17:49 | XMS_ITS | Patient Health Record ---
Author Organization [facility] Mirnawei Ybarra Address [address] [place] [address] Care Team Providers Care Manager Environmental Name Role Phone Jeffrey RIVAS, Олег Primary Care Provider Albert Clement Unavailable [phone] Allergies Allergen (clinical drug ingredient) Drug/Non Drug [...] Status W/U Status Risk Notes Problem Bursitis (38146658) Bursitis (727.3) Active confirmed Problem Myositis (01860715) Myositis (729.1) Active confirmed Problem Pain in limb (04156210) Pain in Limb (729.5) Active confirmed Problem Plantar fasciitis (344444905) Plantar Fasciitis (728.71) Active confirmed Plan Of Treatment Pending Test Test Name Order Date X ray : Foot, left 2V 07/09/2013 X ray : Foot, right 2V 07/09/2013 Insurance Providers Payer Name Payer Address Payer Phone Subscriber Number Group Number Insured Name Patient Relationship to Insured Coverage Start Date Coverage End Date [facility] [address] [place] [address] [phone] [id number] Monserrat Moore Self - patient is the insured Medical (General) History Medical History History ICD Code anxiety Hiatal hernia reflux chicken pox Surgical History Surgery Date(Month/Year) tumor removal from esophagus 2005 section 1994, 1997
--- OUTSIDE RECORDS SUMMARY | 2025-06-26 17:49 | XMS_ITS | Clinical Summary ---
Author Organization [facility] Address [address] [place] [address] Phone Care Team Providers Care Supervising Floorperson Name Role Phone Vishal Brock MD Primary [...] topic Insurance [employer] Care Teams Supervising Floorperson Relationship Specialty Start Date End Date Vishal Brock MD [address] [place] [address] Dr [address] ROSARIO Harkins PCP - General 06/28/24
--- OUTSIDE RECORDS SUMMARY | 2025-06-26 17:49 | XMS_ITS | Patient Health Record ---
Author Organization [facility] Address [address] [place] [address] Care Team Providers Care Oracle Reports Developer Name Role Phone Олег Murphy MD Primary Care Provider Jack Kim [phone] Reason For Referral No Information Plan Of Treatment No Information Insurance Providers Payer Name Payer Address Payer Phone Subscriber Number Group Number Insured Name Patient Relationship to Insured Coverage Start Date Coverage End Date [facility] [address] [place] [phone] [id number] SARA PAGE Self - patient is the insured
== END 2025-06-26 16:07 | disposition home or self-care (01) ==
LOC: HO.HMCH 15:24
PROVIDERS: PCP Internal Medicine; Visit Provider Internal Medicine
DX: Z00.00 Encounter for general adult medical examination without abnormal findings (principal); I49.9 Cardiac arrhythmia, unspecified; I10 Essential (primary) hypertension; F10.20 Alcohol dependence, uncomplicated; E78.00 Pure hypercholesterolemia, unspecified; D50.9 Iron deficiency anemia, unspecified; K21.9 Gastro-esophageal reflux disease without esophagitis; K58.9 Irritable bowel syndrome, unspecified; M25.511 Pain in right shoulder; M47.814 Spondylosis without myelopathy or radiculopathy, thoracic region; M25.512 Pain in left shoulder; M47.812 Spondylosis without myelopathy or radiculopathy, cervical region; M54.42 Lumbago with sciatica, left side; E55.9 Vitamin D deficiency, unspecified; I87.2 Venous insufficiency (chronic) (peripheral); F41.9 Anxiety disorder, unspecified; F33.0 Major depressive disorder, recurrent, mild; F43.21 Adjustment disorder with depressed mood; Z72.0 Tobacco use; E66.9 Obesity, unspecified

== ENCOUNTER → 2025-06-26 15:24 | Outpatient (BNVA) | payer OTHER, SELFPAY | PROVIDERS: PCP Internal Medicine; Visit Provider Internal Medicine | DX: Z00.00 Encounter for general adult medical examination without abnormal findings (principal); I49.9 Cardiac arrhythmia, unspecified; I10 Essential (primary) hypertension; E78.00 Pure hypercholesterolemia, unspecified; D50.9 Iron deficiency anemia, unspecified; K21.9 Gastro-esophageal reflux disease without esophagitis; K58.9 Irritable bowel syndrome, unspecified; M25.511 Pain in right shoulder; M25.512 Pain in left shoulder; M47.814 Spondylosis without myelopathy or radiculopathy, thoracic region; M47.812 Spondylosis without myelopathy or radiculopathy, cervical region; M54.42 Lumbago with sciatica, left side; E55.9 Vitamin D deficiency, unspecified; I87.2 Venous insufficiency (chronic) (peripheral); F10.20 Alcohol dependence, uncomplicated; F41.9 Anxiety disorder, unspecified; F33.0 Major depressive disorder, recurrent, mild; F43.21 Adjustment disorder with depressed mood; E66.9 Obesity, unspecified; Z68.32 Body mass index [BMI] 32.0-32.9, adult; Z79.899 Other long term (current) drug therapy; Z72.0 Tobacco use | CPT/HCPCS: 99396 ==

== ENCOUNTER 2025-07-17 13:58 | Outpatient (REF) | payer OTHER, SELFPAY ==
--- NOTE | ~2025-07-17 | US_ITS ---
EXAMINATION: US PELVIS CLINICAL INFORMATION: Leiomyoma COMPARISON: Previous pelvic ultrasound exams December 2024 and June 2022 TECHNIQUE: Ultrasound of the pelvis is performed using both transabdominal and transvaginal transducers along with Doppler. Transvaginal imaging is performed due to inadequate visualization transabdominally. Transvaginal exam limited due to empty bladder. FINDINGS: Uterus: The uterus is anteverted and measures 7 x 4 x 4.4 cm. The double wall endometrial thickness is 6.1 mm. This is similar to previous exam. No endometrial fluid or mass. The uterus is smooth in contour and has normal myometrial echogenicity. No visible fibroid. Nabothian cysts in the cervix. Adnexa: Both ovaries are visualized. There is no pelvic ascites or fluid collection. Right ovary measures 1.9 x 1 x 2.3 cm. Left ovary measures 2.4 x 1.5 x 1.8 cm. US/US pelvic and transvaginal IMPRESSION: No fibroid seen. Slightly thickened endometrium for a postmenopausal patient measuring 6.1 mm similar to December 2024 exam. Normal-appearing ovaries. Electronically signed by: Coty Vargas MD 07/17/2025 02:31 PM EDT
--- OUTSIDE RECORDS SUMMARY | 2025-07-17 17:43 | XMS_ITS | Patient Health Record ---
Author Organization [facility] Bernardino katherine Ybarra Address [address] [facility] [place] [address] Care Team Providers Care Feather Duster Winder Name Role Phone Jeffrey RIVAS, Олег Primary Care Provider Albert Fisher Unavailable [phone] Allergies Allergen (clinical drug ingredient) Drug/Non Drug [...] Status W/U Status Risk Notes Problem Bursitis (32918331) Bursitis (727.3) Active confirmed Problem Myositis (08509774) Myositis (729.1) Active confirmed Problem Pain in limb (06535244) Pain in Limb (729.5) Active confirmed Problem Plantar fasciitis (097562029) Plantar Fasciitis (728.71) Active confirmed Plan Of Treatment Pending Test Test Name Order Date X ray : Foot, left 2V 07/09/2013 X ray : Foot, right 2V 07/09/2013 Insurance Providers Payer Name Payer Address Payer Phone Subscriber Number Group Number Insured Name Patient Relationship to Insured Coverage Start Date Coverage End Date [facility] [address] [place] [address] [phone] [id number] Monserart Moore Self - patient is the insured Medical (General) History Medical History History ICD Code anxiety Hiatal hernia reflux chicken pox Surgical History Surgery Date(Month/Year) tumor removal from esophagus 2005 section 1994, 1997
--- OUTSIDE RECORDS SUMMARY | 2025-07-17 17:43 | XMS_ITS | Clinical Summary ---
Author Organization [address] [facility] Address [address] [place] [address] Phone Care Team Providers Care Artificial Breeding Technician Name Role Phone Vishal Brock MD Primary [...] Last Done Comments Breast Cancer Screening 1970 Colorectal Cancer Screening: Colonoscopy 1970 DTaP,Tdap,and Td Vaccines (1 - Tdap) 1989 Hepatitis A Vaccines (1 of 2 - Risk 2-dose series) 1989 Hepatitis B Vaccines (1 of 3 - 19+ 3-dose series) 1989 Cervical Cancer Screening: P ap Smear 1991 Pneumococcal Vaccine: 50+ Years (1 of 1 - PCV) 2020 Zoster Vaccines (1 of 2) 2020 Cholesterol Screening (Lipid Panel) 07/28/2024 HIV Screening 07/28/2024 Hepatitis C Screening 07/28/2024 Social Influencers of Health Screening 07/28/2024 Depression Screening 10/03/2024 COVID-19 Vaccine (3 - 2024-2 6 season) 2025 05/26/2021, 05/05/2021 Influenza Vaccine (#1) 2025 RSV Immunization Adult Patients (1 - 1-dose 75+ series) 2045 HIB Vaccines Aged Out No longer eligi [...] patient's age to complete this topic Insurance [facility] PUBLIC PLANS Care Teams Artificial Breeding Technician Relationship Specialty Start Date End Date Vishal Brock MD [address] [place] [address] Dr Thomas [address] Harkins PCP - General 06/28/24
--- OUTSIDE RECORDS SUMMARY | 2025-07-17 17:43 | XMS_ITS | Patient Health Record ---
Author Organization [facility] Address [address] [place] [address] Care Team Providers Care Hospice Home Health Aide Name Role Phone Олег Murphy MD Primary Care Provider Jack Kim [phone] Reason For Referral No Information Plan Of Treatment No Information Insurance Providers Payer Name Payer Address Payer Phone Subscriber Number Group Number Insured Name Patient Relationship to Insured Coverage Start Date Coverage End Date [facility] [address] [place] [phone] [id number] SARA PAGE Self - patient is the insured
== END 2025-07-17 13:59 | disposition home or self-care (01) ==
LOC: HO.HMGCX 13:58
PROVIDERS: PCP Internal Medicine; Visit Provider Advanced Practice Midwife
DX: D21.9 Benign neoplasm of connective and other soft tissue, unspecified (principal)
CPT/HCPCS: 76830; 76856

== ENCOUNTER → 2025-07-17 14:00 | Outpatient (BNV) | payer OTHER, SELFPAY | PROVIDERS: PCP Internal Medicine; Visit Provider Radiology Diagnostic Radiology | DX: N88.8 Other specified noninflammatory disorders of cervix uteri (principal) | CPT/HCPCS: 76830; 76856 ==

== ENCOUNTER 2025-07-23 10:08 | Outpatient (AMB) | payer OTHER, SELFPAY ==
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
--- OUTSIDE RECORDS SUMMARY | 2025-07-23 11:54 | XMS_ITS | Patient Health Record ---
Author Organization [facility] Bernardino katherine Ybarra Address [address] [facility] [place] [address] Care Team Providers Care Crimping Press Operator Name Role Phone Jeffrey RIVAS, Олег Primary Care Provider Albert Fisher Unavailable [phone] Allergies Allergen (clinical drug ingredient) Drug/Non Drug [...] Status W/U Status Risk Notes Problem Bursitis (32720564) Bursitis (727.3) Active confirmed Problem Myositis (76025361) Myositis (729.1) Active confirmed Problem Pain in limb (85250502) Pain in Limb (729.5) Active confirmed Problem Plantar fasciitis (405194204) Plantar Fasciitis (728.71) Active confirmed Plan Of Treatment Pending Test Test Name Order Date X ray : Foot, left 2V 07/09/2013 X ray : Foot, right 2V 07/09/2013 Insurance Providers Payer Name Payer Address Payer Phone Subscriber Number Group Number Insured Name Patient Relationship to Insured Coverage Start Date Coverage End Date [facility] [address] [place] [address] [phone] [id number] Monserrat Moore Self - patient is the insured Medical (General) History Medical History History ICD Code anxiety Hiatal hernia reflux chicken pox Surgical History Surgery Date(Month/Year) tumor removal from esophagus 2005 section 1994, 1997
--- OUTSIDE RECORDS SUMMARY | 2025-07-23 11:54 | XMS_ITS | Patient Health Record ---
Author Organization [facility] Address [address] [place] [address] Care Team Providers Care Marketing Co Op Name Role Phone Олег Murphy MD Primary Care Provider Jack Kim [phone] Reason For Referral No Information Plan Of Treatment No Information Insurance Providers Payer Name Payer Address Payer Phone Subscriber Number Group Number Insured Name Patient Relationship to Insured Coverage Start Date Coverage End Date [facility] [address] [place] [phone] [id number] SARA PAGE Self - patient is the insured
== END 2025-07-23 10:48 | disposition home or self-care (01) ==
LOC: HO.HOP 10:08
PROVIDERS: PCP Internal Medicine; Visit Provider Clinical Nurse Specialist Psychiatric/Mental Health
DX: F43.21 Adjustment disorder with depressed mood (principal); F33.0 Major depressive disorder, recurrent, mild; F41.1 Generalized anxiety disorder; F43.10 Post-traumatic stress disorder, unspecified
CPT/HCPCS: 99214

== ENCOUNTER 2025-07-23 10:08 | Outpatient (REF) | payer OTHER, SELFPAY ==
[2025-07-23 11:28] LABS: MANUAL DIFF FLAG NO
[2025-07-23 12:29] LABS: Hematocrit 37.4 % (37.0-47.0); Hemoglobin 12.0 g/dl (12.0-16.0); Imm Gran Abs Auto 0.03 X10*3/uL (0.00-0.03); Imm Gran Pct Auto 0.5 % (0.0-0.4); Lymphocytes Absolute Auto 2.2 X10*3/uL (1.2-4.9); Mean Corpuscular HGB Conc 32.1 g/dl (31.0-35.0); Mean Corpuscular Hemoglobin 27.3 pg (27.0-33.0); Mean Corpuscular Volume 85.0 fL (80.0-98.0); NRBC Abs Auto 0.000 X10*3/uL (0.0-0.012); NRBC Pct Auto 0.0 /100WBC (0.0-0.2); Platelet Count 241 X10*3/uL (160-400); Red Blood Count 4.40 X10*6/uL (4.20-5.50); White Blood Count 6.3 X10*3/uL (4.8-10.8)
[2025-07-23 12:46] LABS: Appearance Urine Clear; Glucose Urine UA Negative (Negative); PH 7.0 (5.0-9.0); Specific Gravity - Urine 1.020 (1.005-1.025); UMIC TRIGGER UACC YES
[2025-07-23 12:55] LABS: Alanine Aminotransferase 12 U/L (0-31); Albumin Level 3.9 g/dL (3.5-5.0); Alkaline Phosphatase 47 U/L (39-117); Anion Gap 10 (12-20); Aspartate Amino Transferase 20 U/L (5-31); Blood Urea Nitrogen 8 mg/dL (9-16); Calcium 9.2 mg/dL (8.4-10.2); Carbon Dioxide 27 mmol/L (22-29); Chloride 107 mmol/L (96-108); Cholesterol 225 mg/dL (<200); Estimated Glomerular Filt Rate > 60; HDL Cholesterol 53 mg/dL (>40); Magnesium 2.2 mg/dL (1.6-2.6); Potassium 4.8 mmol/L (3.3-5.1); Sodium 139 mmol/L (135-145); Total Protein 6.4 g/dL (6.5-8.0); Triglycerides 89 mg/dL (<150)
[2025-07-23 13:05] LABS: UACC Culture Trigger YES
[2025-07-23 14:31] LABS: Folate 7.9 ng/mL (> or = 4.0); Vitamin B12 240 pg/mL (200-900)
== END 2025-07-23 10:09 | disposition home or self-care (01) ==
LOC: HO.LAB 10:08
PROVIDERS: Absent Provider Internal Medicine; PCP Internal Medicine; Visit Provider Clinical Nurse Specialist Psychiatric/Mental Health
DX: F43.21 Adjustment disorder with depressed mood (principal); F33.0 Major depressive disorder, recurrent, mild; F41.1 Generalized anxiety disorder; F43.10 Post-traumatic stress disorder, unspecified; E53.8 Deficiency of other specified B group vitamins; D64.9 Anemia, unspecified; E78.00 Pure hypercholesterolemia, unspecified; E83.42 Hypomagnesemia; Z79.899 Other long term (current) drug therapy
CPT/HCPCS: 36415; 80053; 80061; 81001; 82306; 82607; 82746; 83735; 84443; 85025; 87086; 99212

== ENCOUNTER 2025-07-30 14:06 | Outpatient (REF) | payer OTHER, SELFPAY ==
--- NOTE | ~2025-07-30 | XR_ITS ---
EXAMINATION: XR LUMBAR SPINE 2-3 VIEWS HISTORY: M54.50 - Low back pain, unspecified COMPARISON: Comparison is made with the prior examination dated 09/14/2024. FINDINGS: AP, lateral, and coned down views of the lumbar spine are submitted. Osseous mineralization is normal. Five nonrib-bearing lumbar vertebral bodies are identified, maintaining normal height and alignment without evidence of fracture or spondylolisthesis. There is minimal degenerative change with anterior spurring. The intervertebral disc spaces are preserved. The posterior elements are intact. The visualized paraspinal soft tissues are unremarkable. XR/XR lumbar spine 2-3V IMPRESSION: Minimal degenerative changes. Electronically signed by: Jack Guzman MD 07/30/2025 02:35 PM EDT
--- NOTE | ~2025-07-30 | XR_ITS ---
EXAMINATION: XR HIP 2 OR MORE VIEWS LEFT HISTORY: M25.552 - Pain in left hip COMPARISON: There are no prior studies available for comparison. FINDINGS: Two views of the left hip are submitted. Osseous mineralization is normal. There is no fracture or dislocation. The joint space is maintained. The soft tissues are unremarkable. XR/XR hip LT min 2V IMPRESSION: Unremarkable examination of the left hip. Electronically signed by: Jack Guzman MD 07/30/2025 02:34 PM EDT
--- OUTSIDE RECORDS SUMMARY | 2025-07-30 18:31 | XMS_ITS | Clinical Summary ---
Author Organization [facility] Address [address] [place] [address] Phone Care Team Providers Care Body Repairer Name Role Phone Vishal Brock MD Primary [...] patient's age to complete this topic Insurance [facility] PUBLIC PLANS Care Teams Body Repairer Relationship Specialty Start Date End Date Vishal Brock MD [address] [place] [address] Dr Thomas [address] Harkins PCP - General 06/28/24
--- OUTSIDE RECORDS SUMMARY | 2025-07-30 18:31 | XMS_ITS | Patient Health Record ---
Author Organization [facility] Address [address] [place] [address] Care Team Providers Care Guide Dog Mobility Instructor Name Role Phone Олег Murphy MD Primary Care Provider Jack Kim [phone] Reason For Referral No Information Plan Of Treatment No Information Insurance Providers Payer Name Payer Address Payer Phone Subscriber Number Group Number Insured Name Patient Relationship to Insured Coverage Start Date Coverage End Date [facility] [address] [place] [phone] [id number] SARA PAGE Self - patient is the insured
--- OUTSIDE RECORDS SUMMARY | 2025-07-30 18:31 | XMS_ITS | Patient Health Record ---
Author Organization [facility] Bernardino katherine Ybarra Address [address] [facility] [place] [address] Care Team Providers Care Smash Piecer Name Role Phone Jeffrey RIVAS, Олег Primary Care Provider Albert Fisher Unavailable [phone] Allergies Allergen (clinical drug ingredient) Drug/Non Drug [...] Status W/U Status Risk Notes Problem Bursitis (79934068) Bursitis (727.3) Active confirmed Problem Myositis (91320498) Myositis (729.1) Active confirmed Problem Pain in limb (20512315) Pain in Limb (729.5) Active confirmed Problem Plantar fasciitis (304696912) Plantar Fasciitis (728.71) Active confirmed Plan Of Treatment Pending Test Test Name Order Date X ray : Foot, left 2V 07/09/2013 X ray : Foot, right 2V 07/09/2013 Insurance Providers Payer Name Payer Address Payer Phone Subscriber Number Group Number Insured Name Patient Relationship to Insured Coverage Start Date Coverage End Date [facility] [address] [place] [address] [phone] [id number] Monserrat Moore Self - patient is the insured Medical (General) History Medical History History ICD Code anxiety Hiatal hernia reflux chicken pox Surgical History Surgery Date(Month/Year) tumor removal from esophagus 2005 section 1994, 1997
== END 2025-07-30 14:07 | disposition home or self-care (01) ==
LOC: HO.XRAY 14:06
PROVIDERS: PCP Internal Medicine; Visit Provider Internal Medicine
DX: M54.50 Low back pain, unspecified (principal); M25.552 Pain in left hip
CPT/HCPCS: 72100; 73502

== ENCOUNTER → 2025-07-30 14:12 | Outpatient (BNV) | payer OTHER, SELFPAY | PROVIDERS: PCP Internal Medicine; Visit Provider Radiology Diagnostic Radiology | DX: M54.50 Low back pain, unspecified (principal); M25.552 Pain in left hip | CPT/HCPCS: 72100; 73502 ==

== ENCOUNTER 2025-07-31 12:02 | Outpatient (AMB) | payer OTHER, SELFPAY ==
--- NOTE | 2025-07-31 12:04 | A.OFFVIS_ITS ---
Intake Visit Reasons: ultrasound results Telecasting Engineer: Telecasting Engineer Present Allergies morphine Adverse Reaction (Unknown, Verified 06/26/25 15:45) withdrawals/sweats Is last menstrual period known: Yes Last menstrual period: 07/31/20 Post menopausal: No Patient : No Do you need a note to return to daycare/school/sports/work: Yes (for surgery on tuesday) HPI Comments Details: Presenting for ultrasound follow-up with no complaints no vaginal bleeding or any other concerns. Pelvic ultrasound showed the following: IMPRESSION: No fibroid seen. Slightly thickened endometrium for a postmenopausal patient measuring 6.1 mm similar to December 2024 exam. Normal-appearing ovaries. 01/25 hysteroscopy D&C was done and the pathology showed the following: Endometrium, curettage: - Superficial strips and fragments of benign endometrium; no atypia or hyperplasia identified. - Small fragment of squamous epithelium within normal limits. - Abundant blood and fibrin PFSH Medical History Nicotine dependence, cigarettes, uncomplicated Irregular bleeding Fibroid Cervical spondylosis Heavy menses History of gastrointestinal stromal tumor (GIST) Situational depression Tinea Family history of breast cancer Low back pain Paresthesia of left upper extremity Epigastric pain Abdominal bloating At high risk for breast cancer Chest pain Umbilical pain Mild anemia Sinus pressure Problematic vaginal discharge Pain of left great toe Status post fall Major depressive disorder, recurrent, mild Hot flashes Venous insufficiency of both lower extremities Pure hypercholesterolemia SVT (supraventricular tachycardia) Cardiac arrhythmia Hx of esophageal ulcer Benign essential hypertension Vitamin D deficiency Bipolar disorder Alcoholism Obesity (BMI 30-39.9) Anxiety Bipolar 1 disorder Depression Surgical History History of breast augmentation Hx of nasal septoplasty History of incisional hernia repair Hx of colonoscopy Hx of section Hx of gastrostomy (~04/2002) Hx of endoscopy Family History Father Esophagus cancer, Onset Age: 63 Mother Breast cancer, Onset Age: 46 Maternal Grandfather Cancer Paternal Aunt Breast cancer Maternal Aunt Breast cancer Son MVA (motor vehicle accident) Social History Household Members: None Housing: House Are you a primary senior care manager to a significant other at home: No Do you presently have visiting nurse or other home services: No Alcohol intake: current Alcohol intake frequency: a few times a week Alcohol type: hard liquor Patient Tobacco Use Status: Current everyday Tobacco user Cigarettes Per Day: 5 Years Smoked: rarely- occasional smoker e-Cigarette/Vaping Use: Never Used Second Hand Smoke Exposure: Yes service: No Current occupational status: employed Cognitive needs: No Hearing needs: No Vision needs: Yes (Glasses) Female Reproductive History Menstrual Age of Menarche: 14 Date of last menstrual period: 07/31/20 Total pregnancies: 2 Full term: 2 Review of Systems Const All systems reviewed & are unremarkable except as noted in HPI and below Reports as per HPI and Reports no additional complaints Card Reports as per HPI and Reports no additional complaints Resp Reports as per HPI and Reports no additional complaints GI Reports no additional complaints Reports no additional complaints Physical Exam Const General: cooperative, healthy appearing and comfortable Resp Effort & Inspection: normal respiratory effort Auscultation: clear to auscultation bilaterally Percussion: percussion normal Cardio Palpation: normal PMI Rate: regular rate Rhythm: regular rhythm Heart sounds: no murmurs and no rubs Peripheral pulses: Peripheral pulses 2+ throughout GI Inspection: Yes normal to inspection Palpation (GI): Soft to palpation, nontender, no guarding, not rigid and No hepatosplenomegaly present Percussion: Yes normal to percussion Auscultation: normal bowel sounds Rectal Exam - Female: deferred Assessment & Plan Assessment & Plan (1) Uterine myoma: Code(s): D25.9 - Leiomyoma of uterus, unspecified Category: Medical Plan: Discussed with the patient the finding on ultrasound no evidence of myoma, the patient was reassured. All questions answered, the patient verbalized understanding (2) Endometrial thickening on ultrasound: Code(s): R93.89 - Abnormal findings on diagnostic imaging of other specified body structures Category: Medical Plan: Discussed with the patient endometrial thickness above 4 mm in menopause , the differential diagnosis of a thickened endometrium includes but not limited to endometrial polyp, hyperplasia or carcinoma. Explained to the patient that endometrial each thickness is less predictive of endometrial neoplasia in asymptomatic patients, i.e. those without postmenopausal uterine bleeding. The sensitivity and specificity for detecting endometrial carcinoma at an endometrial thickness of >= 5mm was 83 and 72 percent, respectively; this is lower than in patients with bleeding. Studies have shown that postmenopausal patients without uterine bleeding who had an endometrial thickness >11 mm had an endometrial carcinoma risk of 6.7 percent; this risk is similar to postmenopausal patients with bleeding and an endometrial thickness >5 mm. Recommended endometrial sampling to rule endometrial pathology via either office endometrial biopsy or diagnostic hysteroscopy/D&C with possible polypectomy/myomectomy. All pros and cons, risks and benefits of each approach were discussed with the patient, the patient decided to proceed with hysteroscopy D&C possible polypectomy/myomectomy. Discussed with the patient the procedure , all benefits and risks including but not limited to inability to complete the procedure , insufficient endometrial tissue for a complete evaluation of the endometrial cavity , bleeding, infection, possible need for blood transfusion with all its risk ( HIV,syphilis, Hepatitis, anaphylaxis shock, others..), injury to bladder, rectum, possible need for laparoscopy/laparotomy or hysterectomy. The patient verbalized understanding and signed the consent. Instructions given the patient to stay NPO after midnight the day prior to the procedure and to schedule a 2 week postoperative appointment Coding Level of Care Code Est Pt Level 3 (28122) Diagnoses Uterine myoma D25.9 Endometrial thickening on ultrasound R93.89
--- OUTSIDE RECORDS SUMMARY | 2025-07-31 15:30 | XMS_ITS | Clinical Summary ---
Author Organization [facility] Address [address] [place] [address] Phone Care Team Providers Care Music Box Mechanic Name Role Phone Vishal Brock MD Primary [...] to complete this topic Insurance [facility] PUBLIC PLANS Care Teams Music Box Mechanic Relationship Specialty Start Date End Date Vishal Brock MD [address] [place] [address] Dr Thomas [address] ROSAR[address] Harkins PCP - General 06/28/24
--- OUTSIDE RECORDS SUMMARY | 2025-07-31 15:30 | XMS_ITS | Patient Health Record ---
Author Organization [facility] Bernardino katherine Ybarra Address [address] [facility] [place] [address] Care Team Providers Care Laborer Fryer Farm Name Role Phone Jeffrey RIVAS, Олег Primary Care Provider Albert Fisher Unavailable [phone] Allergies Allergen (clinical drug ingredient) Drug/Non Drug [...] Status W/U Status Risk Notes Problem Bursitis (64891463) Bursitis (727.3) Active confirmed Problem Myositis (91371400) Myositis (729.1) Active confirmed Problem Pain in limb (96678760) Pain in Limb (729.5) Active confirmed Problem Plantar fasciitis (090848154) Plantar Fasciitis (728.71) Active confirmed Plan Of Treatment Pending Test Test Name Order Date X ray : Foot, left 2V 07/09/2013 X ray : Foot, right 2V 07/09/2013 Insurance Providers Payer Name Payer Address Payer Phone Subscriber Number Group Number Insured Name Patient Relationship to Insured Coverage Start Date Coverage End Date [facility] [address] [place] [address] [phone] [id number] Monserrat Moore Self - patient is the insured Medical (General) History Medical History History ICD Code anxiety Hiatal hernia reflux chicken pox Surgical History Surgery Date(Month/Year) tumor removal from esophagus 2005 section 1994, 1997
--- OUTSIDE RECORDS SUMMARY | 2025-07-31 15:30 | XMS_ITS | Patient Health Record ---
[facility] Organization [facility] Address [address] [place] [address] Care Team Providers Care Choker Hooker Name Role Phone Олег Murphy MD Primary Care Provider Jack Kim [phone] Reason For Referral No Information Plan Of Treatment No Information Insurance Providers Payer Name Payer Address Payer Phone Subscriber Number Group Number Insured Name Patient Relationship to Insured Coverage Start Date Coverage End Date [facility] [address] [place] [phone] [id number] SARA PAGE Self - patient is the insured
== END 2025-07-31 15:10 | disposition home or self-care (01) ==
LOC: HO.HWS 12:03
PROVIDERS: PCP Internal Medicine; Visit Provider Obstetrics & Gynecology
DX: D25.9 Leiomyoma of uterus, unspecified (principal); R93.89 Abnormal findings on diagnostic imaging of other specified body structures
CPT/HCPCS: 99213

== ENCOUNTER → 2025-07-31 12:02 | Outpatient (BNVA) | payer OTHER, SELFPAY | PROVIDERS: PCP Internal Medicine; Visit Provider Obstetrics & Gynecology | DX: D25.9 Leiomyoma of uterus, unspecified (principal); R93.89 Abnormal findings on diagnostic imaging of other specified body structures | CPT/HCPCS: 99212 ==

== ENCOUNTER → 2025-08-08 13:49 | Outpatient (REF) | payer OTHER, SELFPAY ==
--- OUTSIDE RECORDS SUMMARY | 2023-08-19 08:27 | XMS_ITS | Continuity of Care Document ---
Author Organization [facility] Address [address] [place] [address] Phone Care Team Providers Care Gear Cutting Machine Operator Name Role Phone Edward RIVAS FACS RVT [...] Providers Copied on Encounter [facility], [address] [place] [address] Dr [address] 1000Mary [place], [id number], [place] tel:[phone] CV[facility] - [facility] No Information 3 Edward Gardiner. [address], [address], [place], [address], [place]. tel:[phone] Referring Provider: Vishal Brock MD, [address], [place], [address]. tel:[phone] [facility], [address] [place] [address] Dr [address] 1000Mary [place], [id number], [place] tel:[phone] [facility] - [facility] Encounter for follow-up examination after completed treatment for conditions other than malignant neoplasmPain in left leg 3 Edward Gardiner. [address], [address], [place], [address], [place]. tel:[phone] Referring Provider: Vishal Brock MD, [address], [place], [address]. tel:[phone] Office/Outpt E&M Established 15 Mins [facility], [address] [place] [address] Dr [address]Suite Mary Alvarez MD, [id number], [place] tel:[phone] [facility] (idiopathic) with other complications of left lower extremity 3 Edward Gardiner. [address], [address], [place], [address], [place]. tel:[phone] Referring Provider: Vishal Brock MD, [address], [place], [address]. tel:[phone] Office/Outpt E&M Established 15 Mins [facility], [address] [place] [address] Dr [address] 1000Mary [place], [id number], [place] tel:[phone] [facility]tn w oth comp of bilateral low extrm 3 Edward RIVAS FACS RVT CARRIE Gardiner. [address], [address], [place], [address], [place]. tel:[phone] Referring Provider: Vishal Brock MD, [address], [place], [address]. tel:[phone] [place] [facility], [address] [place] [address] Dr [address] 1000Mary [place], [id number], [place] tel:[phone] CV[facility] - [place] - [place] No Information 3 Edward RIVAS FACS RVT CARRIE Gardiner. [address], [address], [place], [address], [place]. [phone] Referring Provider: Vishal Brock MD, [address], [place], [address]. tel:[phone] [facility], [address] [place] [address] Dr [address] 1000Mary [place], [id number], [place] tel:[phone] [facility] - [place] Encntr for f/u exam aft trtmt for cond oth than malig neoplmVenous insufficiency (chronic) (peripheral) 3 Edward RIVAS FACS RVT CARRIE Gardiner. [address], [address], [place], [address], [place]. [phone] Referring Provider: Vishal Brock MD, [address], [place], [address]. tel:[phone] [facility], [address] [place] [address] [address] 1000Mary [place], [id number], [place] tel:[phone] [facility] Venous insufficiency (chronic) (peripheral) 3 Edward RIVAS FACS RVT CARRIE Gardiner. [address], [address], [place], [address], [place]. tel:[phone] Referring Provider: Vishal Brock MD, [address], [place], [address]. tel:[phone] [facility], [address] [place] [address] [address] 1000Mary [place], [id number], [place] tel:[phone] [facility] - [place] Venous insufficiency (chronic) (peripheral) 3 Edward RIVAS FACS T CARRIE Gardiner. [address], [address], [place], [address], [place]. [phone] Referring Provider: Vishal Brock MD, [address], [place], [address]. tel:[phone] [facility], [address] [place] [address] [address] 1000Mary MD, [id number], [place] tel:[phone] [facility] [place] Varicose veins of right low extrm w oth complications 3 Maggy Nguyen . [address], [address], [place], [place], [id number] , [place]. [phone] Referring Provider: Vishal Brock MD, [address], [place], [address]. tel:[phone] [facility], [address] [place] [address] [address] 1000Mary [place], [id number], [place] tel:[phone] [facility] - [place] Encntr for f/u exam aft trtmt for cond oth than malig neoplmVenous insufficiency (chronic) (peripheral) 3 Edward RIVAS FACS T CARRIE Gardiner. [address], [address], [place], [address], [place]. [phone] Referring Provider: Vishal Brock MD, [address], [place], [address]. tel:[phone] [facility], [address] [place] [address] Dr [address] 1000Suite 1000Mary [place], [id number], [place] tel:[phone] [facility] - [place] Venous insufficiency (chronic) (peripheral) 3 Edward RIVAS FACS T CARRIE Gardiner. [address], [facility] [address], [place], [address], [place]. tel:[phone] Referring Provider: Vishal Brock MD, [address] [place] [address] Dr [address], [place], [address]. tel:[phone] [facility], [address], [place], [id number], [place] tel:[phone] CVR - [facility] Venous insufficiency (chronic) (peripheral) 3 Edward RIVAS FACS T CARRIE Gardiner. [address], [address], [place], [address], [place]. tel:[phone] Referring Provider: Vishal Brock MD, [address] [place] [address] Dr [address], [place], [address]. tel:[phone] Family History Family Member Type Diagnosis Age At Onset No Information Payers Payer name Insurance type Covered green party ID Authorchada tirama(s) Medical Assistance [facility] [id number] Social History Type Description Quantity Date Captured [...]
--- OUTSIDE RECORDS SUMMARY | 2025-08-08 16:50 | XMS_ITS | Clinical Summary ---
Author Organization [address] [facility] Address [address] [place] [address] Phone Care Team Providers Care Siebel Architect Name Role Phone Vishal Brock MD Primary [...] patient's age to complete this topic Insurance [facility] [employer] Care Teams Siebel Architect Relationship Specialty Start Date End Date Vishal Brock MD [address] [place] [address] Dr [address] Harkins PCP - General 06/28/24
--- OUTSIDE RECORDS SUMMARY | 2025-08-08 16:50 | XMS_ITS | Patient Health Record ---
Author Organization [facility] Bernardino katherine Ybarra Address [address] [facility] [place] [address] Care Team Providers Care Licensed Land Surveyor Name Role Phone Jeffrey RIVAS, Олег Primary Care Provider Albert Fisher Unavailable [phone] Allergies Allergen (clinical drug ingredient) Drug/Non Drug [...] Status W/U Status Risk Notes Problem Bursitis (48277838) Bursitis (727.3) Active confirmed Problem Myositis (93102893) Myositis (729.1) Active confirmed Problem Pain in limb (87022515) Pain in Limb (729.5) Active confirmed Problem Plantar fasciitis (760714423) Plantar Fasciitis (728.71) Active confirmed Plan Of Treatment Pending Test Test Name Order Date X ray : Foot, left 2V 07/09/2013 X ray : Foot, right 2V 07/09/2013 Insurance Providers Payer Name Payer Address Payer Phone Subscriber Number Group Number Insured Name Patient Relationship to Insured Coverage Start Date Coverage End Date [facility] [address] [place] [address] [phone] [id number] Monserrat Moore Self - patient is the insured Medical (General) History Medical History History ICD Code anxiety Hiatal hernia reflux chicken pox Surgical History Surgery Date(Month/Year) tumor removal from esophagus 2005 section 1994, 1997
--- OUTSIDE RECORDS SUMMARY | 2025-08-08 16:50 | XMS_ITS | Patient Health Record ---
[facility] Organization [facility] Address [address] [place] [address] Care Team Providers Care Cargo And Ramp Services Manager Name Role Phone Олег Murphy MD Primary Care Provider Jack Kim [phone] Reason For Referral No Information Plan Of Treatment No Information Insurance Providers Payer Name Payer Address Payer Phone Subscriber Number Group Number Insured Name Patient Relationship to Insured Coverage Start Date Coverage End Date [facility] [address] [place] [phone] [id number] SARA PAGE Self - patient is the insured
== END ==
LOC: HO.SL 13:49
PROVIDERS: PCP Family Medicine; Visit Provider Nurse Practitioner Family
DX: G47.33 Obstructive sleep apnea (adult) (pediatric) (principal); G47.10 Hypersomnia, unspecified
CPT/HCPCS: 95806

== ENCOUNTER → 2025-08-08 14:03 | Outpatient (BNV) | payer OTHER, SELFPAY | PROVIDERS: PCP Family Medicine; Visit Provider Internal Medicine | DX: G47.33 Obstructive sleep apnea (adult) (pediatric) (principal) | CPT/HCPCS: 95806 ==

== ENCOUNTER 2025-08-09 08:22 | Day surgery (SDC) | payer OTHER, SELFPAY ==
--- NOTE | 2025-08-07 09:11 | P.CONAN_ITS ---
Documented by User: Erin Huntley NP 08/07/25 09:19 HPI - Anesthesia Eval Consult details Narrative: 55yo F for D&C Hysteroscopy,possible polypectomy,possible myomectomy s/p same 01/2025 with [facility] Cardiology for hx SVT, palps, fam hx afib. Last office visit 03/2025 with te sting ordered - nml EKG, ECHO, holter Hx ETOH abuse. Recent intense grief with sudden loss of son. [facility] Active Problems Active Problems: All Active Problems Endometrial thickening on ultrasound (Acute) Nicotine dependence, cigarettes, uncomplicated (Acute) PTSD (post-traumatic stress disorder) (Acute) Alcohol use disorder (Acute) Low back pain with left-sided sciatica (Acute) Abnormal uterine bleeding (AUB) (Acute) Hypersomnia (Acute) Body aches (Acute) Itchy skin (Acute) Multiple joint pain (Acute) Uterine myoma (Acute) Postmenopausal bleeding (Acute) Fibroid (Acute) Cervical spondylosis (Acute) Neck pain (Acute) Bilateral shoulder pain (Acute) Presence of bilateral breast implant (Acute) Heavy menses (Acute) Back pain (Acute) DARBY (generalized anxiety disorder) (Acute) Major depressive disorder, recurrent, mild (Acute) Complicated bereavement (Acute) Recurrent nonproductive cough (Acute) Tubular adenoma of colon (Acute) Bilateral leg cramps (Acute) Anemia (Chronic) GERD (gastroesophageal reflux disease) (Acute) IBS (irritable bowel syndrome) (Acute) Thoracic spondylosis (Acute) Hot flashes (Acute) SVT (supraventricular tachycardia) (Acute) Venous insufficiency of both lower extremities (Acute) Pure hypercholesterolemia (Acute) Cardiac arrhythmia (Acute) Benign essential hypertension (Acute) Vitamin D deficiency (Acute) Alcoholism (Acute) Obesity (BMI 30-39.9) (Acute) Anxiety (Acute) Past Medical History Medical History Nicotine dependence, cigarettes, uncomplicated Irregular bleeding Fibroid Cervical spondylosis Heavy menses History of gastrointestinal stromal tumor (GIST) Situational depression Tinea Family history of breast cancer Low back pain Paresthesia of left upper extremity Epigastric pain Abdominal bloating At high risk for breast cancer Chest pain Umbilical pain Mild anemia Sinus pressure Problematic vaginal discharge Pain of left great toe Status post fall Major depressive disorder, recurrent, mild Hot flashes Venous insufficiency of both lower extremities Pure hypercholesterolemia SVT (supraventricular tachycardia) Cardiac arrhythmia Hx of esophageal ulcer Benign essential hypertension Vitamin D deficiency Bipolar disorder Alcoholism Obesity (BMI 30-39.9) Anxiety Bipolar 1 disorder Depression Family History Family History Father Esophagus cancer, Onset Age: 63 Mother Breast cancer, Onset Age: 46 Maternal Grandfather Cancer Paternal Aunt Breast cancer Maternal Aunt Breast cancer Son MVA (motor vehicle accident) Family history of problems with anesthesia: No Surgical History Surgical History History of breast augmentation Hx of nasal septoplasty History of incisional hernia repair Hx of colonoscopy Hx of section Hx of gastrostomy (~04/2002) Hx of endoscopy History of Problems with Anesthesia: No Social History Social History (Updated 08/05/25 @ 07:53 by Jc Hernandez MD) Household Members: None Housing: House Are you a primary zoo caretaker to a significant other at home: No Do you presently have visiting nurse or other home services: No Alcohol intake: current Alcohol intake frequency: a few times a week Alcohol type: hard liquor Comment: very occasional, once every few months Patient Tobacco Use Status: Current everyday Tobacco user Tobacco use type: Cigarette Cigarettes Per Day: 6 Years Smoked: rarely- occasional smoker e-Cigarette/Vaping Use: Never Used Second Hand Smoke Exposure: Yes Use of substances other than those prescribed or required for medical reasons: No Are you DNR?: No Advance Directives: No Advance Directives Information Provided: Yes : No service: No Current occupational status: employed Cognitive needs: No Hearing needs: No Vision needs: Yes (Glasses) Meds Allergies Allergy/AdvReac Type Severity Reaction Status Date / Time morphine AdvReac Unknown withdrawals Verified 06/26/25 15:45 /sweats Exam Pertinent Lab Results Pertinent Lab Results: Laboratory Tests 07/23/25 11:28 WBC 6.3 Hgb 12.0 Hct 37.4 Plt Count 241 Sodium 139 Potassium 4.8 Chloride 107 Carbon Dioxide 27 BUN 8 L Creatinine 0.71 Narrative Narrative: EKG 04/2025 Vent. Rate : 87 BPM Atrial Rate : 87 BPM P-R Int : 156 ms QRS Dur : 78 ms QT Int : 368 ms P-R-T Axes : 50 26 50 degrees QTcB Int : 442 ms Normal sinus rhythm Normal ECG When compared with ECG of 11-Feb-2025 07:00, No significant change was found Holter 04/2025 * Total monitoring time 5 days. * Underlying rhythm is sinus with an average rate of 85/Min. * No significant supraventricular ectopy. * Rare ventricular ectopy. * No significant pauses or high-grade AV blocks. * Patient markers used with sinus rhythm. * No diary events. ECHO 04/2025 Conclusions: - Essentially normal study Assessment and Plan Assessment Anesthesia Assessment: Chart Reviewed Final Anesthetic Review Family History of Problems with Anesthesia: No History of Problems with Anesthesia: No Documented by User: Sirisha Marin MD 08/09/25 08:58 [facility] Past Medical History Medical History Nicotine dependence, cigarettes, uncomplicated Irregular bleeding Fibroid Cervical spondylosis Heavy menses History of gastrointestinal stromal tumor (GIST) Situational depression Tinea Family history of breast cancer Low back pain Paresthesia of left upper extremity Epigastric pain Abdominal bloating At high risk for breast cancer Chest pain Umbilical pain Mild anemia Sinus pressure Problematic vaginal discharge Pain of left great toe Status post fall Major depressive disorder, recurrent, mild Hot flashes Venous insufficiency of both lower extremities Pure hypercholesterolemia SVT (supraventricular tachycardia) Cardiac arrhythmia Hx of esophageal ulcer Benign essential hypertension Vitamin D deficiency Bipolar disorder Alcoholism Obesity (BMI 30-39.9) Anxiety Bipolar 1 disorder Depression Family History Family History Father Esophagus cancer, Onset Age: 63 Mother Breast cancer, Onset Age: 46 Maternal Grandfather Cancer Paternal Aunt Breast cancer Maternal Aunt Breast cancer Son MVA (motor vehicle accident) Surgical History Surgical History History of breast augmentation Hx of nasal septoplasty History of incisional hernia repair Hx of colonoscopy Hx of section Hx of gastrostomy (~04/2002) Hx of endoscopy Social History Social History (Updated 08/05/25 @ 07:53 by Jc Hernandez MD) Household Members: None Housing: House Are you a primary zoo caretaker to a significant other at home: No Do you presently have visiting nurse or other home services: No Alcohol intake: current Alcohol intake frequency: a few times a week Alcohol type: hard liquor Comment: very occasional, once every few months Patient Tobacco Use Status: Current everyday Tobacco user Tobacco use type: Cigarette Cigarettes Per Day: 6 Years Smoked: rarely- occasional smoker e-Cigarette/Vaping Use: Never Used Second Hand Smoke Exposure: Yes Use of substances other than those prescribed or required for medical reasons: No Are you DNR?: No Advance Directives: No Advance Directives Information Provided: Yes : No service: No Current occupational status: employed Cognitive needs: No Hearing needs: No Vision needs: Yes (Glasses) Meds Allergies Allergy/AdvReac Type Severity Reaction Status Date / Time morphine AdvReac Unknown withdrawals Verified 06/26/25 15:45 /sweats Exam Airway Mallampati Class: II (cap bottom left, bonding teeth top front) TM Dist: >3cm Neck ROM: Full Heart: rrr Lungs: cta Assessment and Plan Assessment Anesthesia Assessment: Anesthesia Plan Discussed Final Anesthetic Review NPO: Yes ASA Class: III Final Preanesthetic Review: No Changes in Pt Med Stat, Meds/Allgs Chart Reviewed and Consent Obtained/Reviewed Patient Risk: Intermediate Procedure Risk: Low Anesthetic Plan Anesthetic Plan: GA Disposition: Standard PACU
[2025-08-07 11:50] VITALS: BMI 32.8
[2025-08-09] VITALS (9 sets, daily range): BP systolic 103–116; BP diastolic 62–77; PULSE 61–77; RESP 14–19; TEMP 36.2–36.6; O2SAT 92–97; BMI 32.4
[2025-08-09 08:44] LABS: UPreg QC Valid YES
--- NOTE | 2025-08-09 08:52 | MHC.SHP ---
Pre-Procedural Eval Section A - 24 Hr Update-Section A only Date of Service: 08/09/25 The patient is an INPATIENT: No Changes since office visit: No Cold of Flu in the past 2 weeks, No New Medical Problems, No Changes in Medication and No Patient answered all questions The patient has been examined within 24 hours of the surgical procedure. The History & Physical has been completed within 30 days and I have reviewed it.: Yes Section B - Complete if H&P > 30 days Chief Complaint: Abnormal findings on diagnostic imaging Allergies: Allergies Allergy/AdvReac Type Severity Reaction Status Date / Time morphine AdvReac Unknown withdrawals Verified 06/26/25 15:45 /sweats Plan Diagnosis/Plan: Unchanged I have reviewed the history and physical and performed a pertinent physical examination on my patient. No changes have occurred unless specified. Time Spent With Patient Time: Total time managing care of this patient today ____ minutes.
[2025-08-09] MEDS: Lactated Ringers 1,000 ML 100 ML IVCONT (09:03)
--- NOTE | 2025-08-09 09:05 | PC.NURSE ---
PATIENT C/O SCIATIC PAIN. VERY UNCOMFORTABLE. MD SALCEDO MEDICATED FOR PAIN.
--- NOTE | 2025-08-09 10:58 | PM.OP ---
Brief Operative Note Date of Service: 08/09/25 Pre-op diagnosis: Endometrial thickening by ultrasound Post-op diagnosis: same (Normal endometrial cavity) Procedure: Hysteroscopy D&C Surgeon: Jc Hernandez MD Anesthesia: GLMA Was an Geographic Information Systems Director used for this Procedure?: No Estimated blood loss (mL): 0 Pathology: other (Endometrial Scrapping. ) Condition: stable Disposition: PACU
--- NOTE | 2025-08-09 10:58 | W.PM.OPN ---
Operative Note Operative Note Date of Service: 08/09/25 Narrative: Preop Diagnosis: Endometrial thickening by ultrasound Operation: Diagnostic Hysteroscopy, Dilataion & Curettage Post Op Diagnosis: Normal endometrial cavity QBL: Minimal Anesthesia: GLMA Surgeon: Jc Hernandez MD Supervisor Channel Process: None Complication: None Pathology: Endometrial Scrapings Procedure: The patient was put in the dorsal lithotomy position, scrubbed, and draped in the usual manner. A sterile speculum was inserted in the patient's vagina. The anterior lip of the cervix was grasped with a single tooth tenaculum. The cervix was dilated up to 5 mm, then the scope was inserted in the patient's uterus. Inspection revealed Normal endometrial cavity. The Myosure Reach device was used; the scope was removed from the endometrial cavity , sharp curettings was carried on with minimal to moderate amount of tissues retrieved. At the end of the procedure, all instruments were taken out of the patient uterine and vaginal cavity. The single tooth tenaculum was removed and homeostasis was assured using pressure,. The patient tolerated the procedure well and was transferred to the PACU in a stable condition.
== END 2025-08-09 12:30 | disposition home or self-care (01) ==
PROVIDERS: PCP Internal Medicine; Visit Provider Obstetrics & Gynecology
PROC: 0UDB8ZZ Extraction of Endometrium, Via Natural or Artificial Opening Endoscopic (ICD-10-PCS; CPT 58558; principal; 2025-08-09 10:30)
DX: N85.8 Other specified noninflammatory disorders of uterus (principal); N92.0 Excessive and frequent menstruation with regular cycle; D25.9 Leiomyoma of uterus, unspecified; B35.9 Dermatophytosis, unspecified; I10 Essential (primary) hypertension; Z85.09 Personal history of malignant neoplasm of other digestive organs; Z93.1 Gastrostomy status; Z80.3 Family history of malignant neoplasm of breast; F31.9 Bipolar disorder, unspecified; F43.21 Adjustment disorder with depressed mood; Z88.5 Allergy status to narcotic agent; F10.20 Alcohol dependence, uncomplicated; F17.210 Nicotine dependence, cigarettes, uncomplicated; Z98.890 Other specified postprocedural states
CPT/HCPCS: 58558; 81025; 88305; J1100; J1885; J2003; J2250; J2405; J2704; J3010

== ENCOUNTER → 2025-08-09 08:22 | Outpatient (BNV) | payer OTHER, SELFPAY | PROVIDERS: PCP Internal Medicine; Visit Provider Obstetrics & Gynecology | DX: R93.89 Abnormal findings on diagnostic imaging of other specified body structures (principal) | CPT/HCPCS: 58558 ==

== ENCOUNTER 2025-08-20 10:02 | Outpatient (AMB) | payer OTHER, SELFPAY ==
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
== END 2025-08-20 10:53 | disposition home or self-care (01) ==
LOC: HO.HOP 10:02
PROVIDERS: PCP Internal Medicine; Visit Provider Clinical Nurse Specialist Psychiatric/Mental Health
DX: F43.21 Adjustment disorder with depressed mood (principal); F33.0 Major depressive disorder, recurrent, mild; F41.1 Generalized anxiety disorder; F43.10 Post-traumatic stress disorder, unspecified; F90.2 Attention-deficit hyperactivity disorder, combined type
CPT/HCPCS: 99214

== ENCOUNTER → 2025-08-20 10:02 | Outpatient (BNVA) | payer OTHER, SELFPAY | PROVIDERS: PCP Internal Medicine; Visit Provider Clinical Nurse Specialist Psychiatric/Mental Health | DX: F43.21 Adjustment disorder with depressed mood (principal); F33.0 Major depressive disorder, recurrent, mild; F41.1 Generalized anxiety disorder; F43.10 Post-traumatic stress disorder, unspecified; F90.2 Attention-deficit hyperactivity disorder, combined type | CPT/HCPCS: 99212 ==

== ENCOUNTER 2025-08-27 15:23 | Outpatient (AMB) | payer OTHER, SELFPAY ==
--- OUTSIDE RECORDS SUMMARY | 2023-08-19 08:27 | XMS_ITS | Continuity of Care Document ---
Author Organization [facility] Address [address] [place] [address] Phone Care Team Providers Care Construction Engineer Name Role Phone Edward RIVAS FACS RVT Devonte BUTLER Unavailable Unavailable Allergies, Adverse Reactions, Alerts Substance Reaction Status Criticality No Known Allergies Active No Inform ation Medications Medication Instructions Dosage Effective Dates (start - stop) Status Comments FLUOXETINE HCL (unknown strength) Not Available - Active LANSOPRAZOLE (unknown strength) Not Available - Active LORAZEPAM (unknown strength) Not Available - Active MAGNESIUM (unknown strength) Not Available - Active METOPROLOL SUCCINATE (unknown strength) Not Available - Active SUCRALFATE (unknown strength) Not Available - Active Procedures Procedure Date Duplex Scan-extrem Veins; Office/Outpt E&M Established 15 Mins Aug Office/Outpt E&M Established 15 Mins May Duplex Scan-extrem Veins; Endovenous Laser, 1st Vein Endovenous laser vein addon Endovenous Laser, 1st Vein Endovenous laser vein addon Phleb Veins - Extrem - To Duplex Scan-extrem Veins; Endovenous Laser, 1st Vein Endovenous Laser, 1st Vein Advance Directives Directive Yes / No Effective Date File Name No Information Encounters Encounter Description Practice Location Reason(s) For Visit Diagnoses Date Provider Providers Copied on Encounter [facility], [address] [place] [address] Dr [address]Mary [place], [id number], [place] tel:[phone] [facility] No Information 3 Edward Gardiner. [address], [address], [place], [address], [place]. tel:[phone] Referring Provider: Vishal Brock MD, [address], [place], [address]. tel:[phone] [facility], [address] [place] [address] Dr [address]Mary [place], [id number], [place] tel:[phone] [facility] Encounter for follow-up examination after completed treatment for conditions other than malignant neoplasmPain in left leg 3 Edward Gardiner. [address], [address], [place], [address], [place]. tel:[phone] Referring Provider: Vishal Brock MD, [address], [place], [address]. tel:[phone] Office/Outpt E&M Established 15 Mins [facility], [address] [place] [address] Dr [address]Suite Mary Alvarez MD, [id number], [place] tel:[phone] [facility] (idiopathic) with other complications of left lower extremity 3 Edward Gardiner. [address], [address], [place], [address], [place]. tel:[phone] Referring Provider: Vishal Brock MD, [address], [place], [address]. tel:[phone] Office/Outpt E&M Established 15 Mins [facility], [address] [place] [address] Dr [address]Mary [place], [id number], [place] tel:[phone] [facility] htn w oth comp of bilateral low extrm 3 Edward RIVSA FACS RVT CARRIE Gardiner. [address], [address], [place], [address], [place]. tel:[phone] Referring Provider: Vishal Brock MD, [address], [place], [address]. tel:[phone] [place] [facility], [address] [place] [address] Dr [address]Mary [place], [id number], [place] tel:[phone] [facility] [place] No Information 3 Edward RIVAS FACS RVT CARRIE Gardiner. [address], [address], [place], [address], [place]. [phone] Referring Provider: Vishal Brock MD, [address], [place], [address]. tel:[phone] [facility], [address] [place] [address] Dr [address]Mary [place], [id number], [place] tel:[phone] [facility] [place] [facility] [place] Encntr for f/u exam aft trtmt for cond oth than malig neoplmVenous insufficiency (chronic) (peripheral) 3 Edward RIVAS FACS RVT CARRIE Gardiner. [address], [address], [place], [address], [place]. [phone] Referring Provider: Vishal Brock MD, [address], [place], [address]. tel:[phone] [facility], [address] [place] [address] [address]Mary [place], [id number], [place] tel:[phone] [facility] [place] Venous insufficiency (chronic) (peripheral) 3 Edward RIVAS FACS RVT CARRIE Gardiner. [address], [address], [place], [address], [place]. tel:[phone] Referring Provider: Vishal Brock MD, [address], [place], [address]. tel:[phone] [facility], [address] [place] [address] [address]Mary [place], [id number], [place] tel:[phone] [facility] - [place] Venous insufficiency (chronic) (peripheral) 3 Edward RIVAS FACS T CARRIE Gardiner. [address], [address], [place], [address], [place]. [phone] Referring Provider: Vishal Brock MD, [address], [place], [address]. 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 [address], [address], [place], [place], [id number] , [place]. [phone] Referring Provider: Vishal Brock MD, [address], [place], [address]. tel:[phone] [facility], [address] [place] [address] [address]Mary [place], [id number], [place] tel:[phone] [facility] [place] Encntr for f/u exam aft trtmt for cond oth than malig neoplmVenous insufficiency (chronic) (peripheral) 3 Edward RIVAS FACS T CARRIE Gardiner. [address], [address], [place], [address], [place]. [phone] Referring Provider: Vishal Brock MD, [address], [place], [address]. tel:[phone] [facility], [address] [place] [address] Dr Thomas 1000Suite 1000Mray [place], [id number], [place] tel:[phone] [facility] - [place] [facility] [place] Venous insufficiency (chronic) (peripheral) 3 Edward RIVAS FACS T CARRIE Gardiner. [address], [address] [facility] [address], [place], [address], [place]. tel:[phone] Referring Provider: Vishal Brock MD, [address] [place] [address] Dr [address], [place], [address]. tel:[phone] [facility], [address], [place], [id number], [place] tel:[phone] [facility] Venous insufficiency (chronic) (peripheral) 3 Edward RIVAS FACS T CARRIE Gardiner. [address], [address], [place], [address], [place]. tel:[phone] Referring Provider: Vihsal Brock MD, [address] [place] [address] Dr [address], [place], [address]. tel:[phone] Family History Family Member Type Diagnosis Age At Onset No Information Payers Payer name Insurance type Covered alliance party ID Authorchdaa tirama(s) Medical Assistance [facility] [id number] Social History Type Description Quantity Date Captured Comments Alcohol Use Details Unknown Caffeine Use Details Unknown Tobacco Use Status Smoking Status No Information Sex Female Chief Complaint And Reason For Visit No Information Reason For Referral Reason For Referral No Information Plan Of Treatment Date Type Action Status Goal Tobacco cessation counseling completed Goal Tobacco cessation counseling completed History Of Present Illness Encounter Date Complaint History Of Prese nt Illness No Information Functional Status Date Functional Assessmen t No Information Instructions Date Instruction Additional Infor mation No Information Assessments Type Assessment Date No Information Patient Care Teams Name Effective Dates (start - stop) Status Members No Information
--- NOTE | 2025-08-27 15:40 | MHC.PC.OV ---
Vital Signs 08/27/25 15:41 Height 5 ft 6 in Weight 205 lb 6 oz BMI 33.1 BP 120/60 Blood Pressure Location Lt brachial Position Sitting Pulse 88 Pulse Source Pulse Oximeter Temp 97.3 F Temp Source Temporal Artery Scan Pulse Oximetry (%) 97 Oxygen Delivery Method Room Air Intake Visit Reasons: [facility] Administrative Assistant Office Manager Required: No Accompanied by: Self / Same As Patient Allergies morphine Adverse Reaction (Unknown, Verified 08/27/25 16:19) withdrawals/sweats Medication List - Last Reconciled 08/27/25 by Vishal Brock MD albuterol sulfate 90 mcg/actuation (ProAir HFA) 2 puffs inhalation Q6H PRN 30 days cholecalciferol (vitamin D3) 25 mcg PO DAILY 90 days cyclobenzaprine 10 mg PO TID PRN 30 days dextroamphetamine-amphetamine 5 mg ER (Adderall XR) 5 mg PO QAM dicyclomine 10 mg PO QID PRN lansoprazole 30 mg PO DAILY 90 days lorazepam 1 mg PO Q12H PRN 90 days magnesium oxide 400 mg PO DAILY metoprolol succinate ER 50 mg PO DAILY naltrexone 50 mg PO DAILY sertraline 100 mg PO BID sucralfate (Carafate) 1 g PO DAILY Tobacco use date assessed: 08/27/25 Dental Screening Dental Screen Date: 08/27/25 Did you have a dental visit in the last 12 months?: Yes Did you have a dental problem in the last 6 months where you did not have access to dental care?: No Was dental information given to patient?: Patient has dentist HPI [facility] HPI Details - The patient is a 55 year old individual presenting for follow-up of left leg pain. - The patient reports pain that shoots down the left leg, which is associated with cramping, similar to a charley horse, and a sensation of weakness. - Recently, the symptoms have also started to occur in the right leg, although to a lesser degree. - The patient denies that the weakness has progressed to the point of being unable to support herself when she is walking She denies any recent injury or trauma to her lower back or legs - A request for an MRI was denied by insurance, which stipulated that a detailed neurologic exam and a trial of physical therapy within the past 12 weeks are required for approval. - The patient also reports experiencing menopausal hot flashes, which makes it more difficult for her to use heat or warm compress to help relieve her symptoms - Tramadol has caused stomach upset in the past. She denies any headaches or dizziness Denies any chest pains, no increased shortness of breath No nausea/vomiting, no abdominal pain No change in bowel habits noted [facility] Medical History Nicotine dependence, cigarettes, uncomplicated Irregular bleeding Fibroid Cervical spondylosis Heavy menses History of gastrointestinal stromal tumor (GIST) Situational depression Tinea Family history of breast cancer Low back pain Paresthesia of left upper extremity Epigastric pain Abdominal bloating At high risk for breast cancer Chest pain Umbilical pain Mild anemia Sinus pressure Problematic vaginal discharge Pain of left great toe Status post fall Major depressive disorder, recurrent, mild Hot flashes Venous insufficiency of both lower extremities Pure hypercholesterolemia SVT (supraventricular tachycardia) Cardiac arrhythmia Hx of esophageal ulcer Benign essential hypertension Vitamin D deficiency Bipolar disorder Alcoholism Obesity (BMI 30-39.9) Anxiety Bipolar 1 disorder Depression Surgical History History of breast augmentation Hx of nasal septoplasty History of incisional hernia repair Hx of colonoscopy Hx of section Hx of gastrostomy (~04/2002) Hx of endoscopy Family History Father Esophagus cancer, Onset Age: 63 Mother Breast cancer, Onset Age: 46 Maternal Grandfather Cancer Paternal Aunt Breast cancer Maternal Aunt Breast cancer Son MVA (motor vehicle accident) Social History Household Members: None Housing: House Are you a primary client care consultant to a significant other at home: No Do you presently have visiting nurse or other home services: No Alcohol intake: current Alcohol intake frequency: a few times a week Comment: very occasional, once every few months Patient Tobacco Use Status: Current everyday Tobacco user Tobacco use type: Cigarette Cigarette Packs Per Day: 0.5 Cigarettes Per Day: 10 Years Smoked: rarely- occasional smoker e-Cigarette/Vaping Use: Never Used Second Hand Smoke Exposure: Yes service: No Current occupational status: employed Cognitive needs: No Hearing needs: No Vision needs: Yes (Glasses) Female Reproductive History Menstrual Age of Menarche: 14 Questionnaire PHQ-9 Over the last 2 weeks, how often have you been bothered by any of the following problems? 1. Little interest or pleasure in doing things: several days 2. Feeling down, depressed, or hopeless: several days 3. Trouble falling or staying asleep, or sleeping too much: more than half the days 4. Feeling tired or having little energy: more than half the days 5. Poor appetite or overeating: not at all 6. Feeling bad about yourself - or that you are a failure or have let yourself or your family down: not at all 7. Trouble concentrating on things, such as reading the newspaper or watching television: not at all 8. Moving or speaking so slowly that other people could have noticed. Or the opposite - being so fidgety or restless that you have been moving around a lot more than usual: several days 9. Thoughts that you would be better off or of hurting yourself in some way: not at all Total score: 7 Depression Screening Interpretation: Positive Depression Screening Follow-up: Existing condition and In treatment Depression Screening Done: Yes 58146 - PHQ-9 Billing: Yes Source: Developed by Drs. Jack Hyde, Bertha Washington, Lon Tijerina and colleagues, with an educational nayeli from [employer]. Thrive Questionnaire Date Thrive assessed: 08/27/25 I am a: Patient What is your living situation today?: I have a steady place to live Within the past 12 months, did the food you bought not last and you didn't have the money to get more?: I choose not to answer this question Within the past 12 months, did you worry whether your food would run out before you got money to buy more?: I choose not to answer this question Do you have trouble paying for medicines?: Yes Do you have trouble getting transportation to medical appointments?: No Do you have trouble paying your heating and electricity bill?: Yes Do you have trouble taking care of your child, family member or friend?: I choose not to answer this question Do you have trouble with day-to-day activities such as bathing, preparing meals, shopping, managing finances, etc.?: Yes Are you currently unemployed and looking for a job?: I choose not to answer this question Are you interested in more education?: Yes Please select the resources that you would like help with: None Currently or been in a relationship where the following occur: No concerns reported THRIVE Score: 1 AUDIT C Alcohol Use Questionnaire (AUDIT-C) 1. How often do you have a drink containing alcohol?: 2-3 times a week 2. How many drinks containing alcohol do you have on a typical day when you are drinking?: 5 or 6 3. How often do you have six or more drinks on one occasion?: Less than monthly Total Score: 6 Score Reviewed/Action Taken: Yes DARBY-7 AMB Questionnaire DARBY-7 Date DARBY - 7 assessed: 08/27/25 Feeling nervous, anxious, or on edge: 0 = Not at all Not being able to stop or control worryin = Not at all Worrying too much about different things: 0 = Not at all Trouble relaxin = Not at all Being so restless that it is hard to sit still: 0 = Not at all Becoming easily annoyed or irritable: 0 = Not at all Feeling afraid as if something awful might happen: 0 = Not at all Total DARBY-7 score (0-4 normal; 5-9 mild; 10-14 moderate; 15-21 severe): 0 Source: Developed by Drs. Jack Hyde, Bertha Washington, Lon Tijerina and colleagues, with an educational nayeli from [employer]. Review of Systems Const Denies chills, Denies fatigue, Denies fever(s) and Denies headache(s) ENT Denies dysphagia, Denies dizziness, Denies otalgia, Denies headache(s), Reports neck pain (chronic) and Denies sore throat Card Denies chest pain, Denies irregular heart rhythm, Denies palpitations and Denies dyspnea Resp Denies chest congestion, Denies cough and Denies dyspnea GI Denies abdominal pain, Denies constipation, Denies dysphagia, Denies heartburn, Denies diarrhea, Denies nausea and Denies vomiting Denies difficulty voiding, Denies dysuria and Denies urinary urgency Musc Reports back pain (over the lower back, on and off), Denies arthralgias, Reports neck pain (chronic) and Reports radiating pain into limb (into both lower extremities, worse in the left side) Skin/Breast Denies rash Neuro Denies dizziness, Denies headache(s) and Denies paresthesias Psych Reports anxiety and Reports depression (increased) Endo Denies fatigue and Denies palpitations Jomar/Lymph Denies easy bruising Physical exam (Primary Care) Vital Signs: Last Vital Signs Temp 97.3 F 08/27/25 15:41 Pulse 88 08/27/25 15:41 BP 120/60 08/27/25 15:41 Pulse Ox 97 08/27/25 15:41 Oxygen Delivery Method Room Air 08/27/25 15:41 BMI result Body Mass Index 33.1 Tobacco/Smoking Status: Tobacco use Status Tobacco use date assessed 08/27/25 08/27/25 15:43 Patient Tobacco Use Status Current everyday Tobacco 08/27/25 15:43 Tobacco use type Cigarette 08/27/25 15:43 e-Cigarette/Vaping Use Never Used 08/27/25 15:43 PHQ-9: PHQ-9 Score PHQ-9: Total score 7 08/27/25 16:33 Depression Screening Interpretation: Positive Depression Screening Follow-up: Existing condition and In treatment Thrive Assessment: Date of Thrive Assessment Date Thrive assessed 08/27/25 08/27/25 15:43 Currently or been in a relationship where the following occur: No concerns reported Const General: no acute distress and alert Orientation/consciousness: patient oriented x3 HENMT Throat: Yes posterior oropharynx normal and Yes tonsils normal (no TP congestion) Neck Neck: No lymphadenopathy and Yes tender Thyroid: Thyroid normal Resp Auscultation: clear to auscultation bilaterally, no rales and no wheezes Cardio Rate: regular rate Rhythm: regular rhythm Heart sounds: no murmurs GI Palpation (GI): Soft to palpation and nontender Auscultation: normal bowel sounds General: Yes no CVA tenderness Back/Spine/Pelvis Back: no CVA tenderness Cervical Spine: Cervical spine tenderness Thoracic/Lumbar Spine: lumbar spinal tenderness and straight leg raise positive left Skin Rashes: no rashes Neuro General: patient oriented x3, no focal motor deficits and CN's II-XI intact bilaterally Cognition (Neuro): normal cognition Extrem General: Yes no clubbing, cyanosis or edema Coding Level of Care Code Est Pt Level 3 (43627) Diagnoses Lumbar back pain with radiculopathy affecting left lower extremity M54.16 Additional Codes PHQ-9 - 56176 - PHQ-9 Billing: Yes ([id number]) Assessment & Plan Assessment & Plan (1) Lumbar back pain with radiculopathy affecting left lower extremity: Code(s): M54.16 - Radiculopathy, lumbar region Category: Medical Plan: Lumbar spine x-rays done last year revealed (+) mild spondylosis of the lumbosacral spine that appear slightly progressed compared to prior She was previously sent for an MRI of the lumbar spine, per her request, for further evaluation but her insurance denied the procedure She has been advised that she will need to undergo physical therapy first as one of the requirements before her insurance will agree to cover her MRI She is now being referred to physical therapy for further evaluation and management Plan Follow up as scheduled in October 2025 Orders: Orders PT Evaluation and Treatment 08/27/25 M54.42 - Lumbago with sciatica, left side
[2025-08-27 15:41] VITALS: BP 120/60; PULSE 88; TEMP 36.3; O2SAT 97; BMI 33.1
--- OUTSIDE RECORDS SUMMARY | 2025-08-27 19:01 | XMS_ITS | Clinical Summary ---
Author Organization [facility] Address [address] [place] [address] Phone Care Team Providers Care Adapted Physical Education Aide Name Role Phone Vishal Brock MD Primary [...] patient's age to complete this topic Insurance [facility] [employer] Care Teams Adapted Physical Education Aide Relationship Specialty Start Date End Date Vishal Brock MD [address] [place] [address] Dr Thomas [address] Harkins PCP - General 06/28/24
--- OUTSIDE RECORDS SUMMARY | 2025-08-27 19:01 | XMS_ITS | Encounter Summary ---
Author Organization [facility] Address [address] [place] [address] Care Team Providers Care Weed Controller Name Role Phone Paola Ball MD Primary Care Provider Blane Jiménez MD Primary Care Provider Unava Vishal Young MD Primary Care Provider Unava ilgerardo Encounter Details Date Type Department Care Team Description 03/24/2018 Orders Only Adult Medicine [address] [address] Paola Ball MD Pedal edema (Primary Dx) [...] - 6.2 mg/dL 03/31/2018 3:39 PM EDT [facility] 03/31/2018 1:30 PM EDT 03/31/2018 1:30 PM EDT Paola Ball MD LAB [address] * ALBUMIN (03/31/2018 1:30 PM EDT) Albumin 3.9 3.2 - 5.6 gm/dL 03/31/2018 3:39 PM EDT [facility] 03/31/2018 1:30 PM EDT 03/31/2018 1:30 PM EDT Paola Ball MD LAB Performing Organization Address City/State/[facility] Co de Phone Number [facility] [address] documented in this encounter Visit Diagnoses Diagnosis Pedal edema- Primary Edema documented in this encounter Care Teams Weed Controller Relationship Specialty Start Date End Date Paola Ball MD PCP - General Internal Medicine 01/27/18 03/30/18 Blane Masters MD PCP - General Internal Medicine 03/31/18 06/27/24 Vishal Brock MD PCP - General Internal Medicine 06/28/24 documented as of this encounter
--- OUTSIDE RECORDS SUMMARY | 2025-08-27 19:01 | XMS_ITS | Patient Health Record ---
Author Organization [facility] [place] katherine Ybarra Address [address] [facility] [place] [address] Care Team Providers Care Electronic Data Interchange Specialist Name Role Phone Jeffrey RIVAS, Олег Primary Care Provider Albert Fisher Unavailable [phone] Allergies Allergen (clinical drug ingredient) Drug/Non Drug [...] Status W/U Status Risk Notes Problem Bursitis (35021045) Bursitis (727.3) Active confirmed Problem Myositis (82878519) Myositis (729.1) Active confirmed Problem Pain in limb (05487389) Pain in Limb (729.5) Active confirmed Problem Plantar fasciitis (010637750) Plantar Fasciitis (728.71) Active confirmed Plan Of Treatment Pending Test Test Name Order Date X ray : Foot, left 2V 07/09/2013 X ray : Foot, right 2V 07/09/2013 Insurance Providers Payer Name Payer Address Payer Phone Subscriber Number Group Number Insured Name Patient Relationship to Insured Coverage Start Date Coverage End Date [address] [place] [address] [phone] [id number] Monserrat Moore Self - patient is the insured Medical (General) History Medical History History ICD Code anxiety Hiatal hernia reflux chicken pox Surgical History Surgery Date(Month/Year) tumor removal from esophagus 2005 section 1994, 1997
--- OUTSIDE RECORDS SUMMARY | 2025-08-27 19:01 | XMS_ITS | Encounter Summary ---
Author Organization [facility] Address [address] [place] [address] Care Team Providers Care Business Development Intern Name Role Phone Paola Ball MD Primary Care Provider Unavail Blane Beasley MD Primary Care Provider UnaVishal Bell MD Primary Care Provider Viktoriava ilgerardo Encounter Details Date Type Department Care Team Description 02/09/2018 Orders Only Adult Medicine [address] [address] Paola Ball MD Normocytic anemia (Primary Dx) [...] - 946 pg/mL 02/10/2018 10:55 AM EDT [facility] 02/09/2018 5:07 PM EDT 02/09/2018 5:07 PM EDT Paola Ball MD LAB [address] * (ABNORMAL) FOLIC ACID (02/09/2018 5:07 PM EDT) FOLATE 18.5(H) 2.8 - 17.0 ng/ml 02/09/2018 8:58 PM EDT [facility] 02/09/2018 5:07 PM EDT 02/09/2018 5:07 PM EDT Paola Ball MD LAB [facility] * (ABNORMAL) IRON/TIBC (02/09/2018 5:07 PM EDT) UNSATURATED IRON BINDING CAP 331 ug/dl 02/10/2018 11:14 AM EDT [facility] TIBC 352 152 - 496 ug/dL 02/10/2018 11:14 AM EDT [facility] IRON 21(L) 40 - 150 ug/dL 02/10/2018 10:47 AM EDT [facility] % FE SATURATION 6(L) 15 - 50 % 8 11:14 AM EDT [facility] 02/09/2018 5:07 PM EDT 02/09/2018 5:07 PM EDT Paola Ball MD LAB [facility] documented in this encounter Visit Diagnoses Diagnosis Normocytic anemia- Primary Anemia, unspecified documented in this encounter Care Teams Business Development Intern Relationship Specialty Start Date End Date Paola Ball MD PCP - General Internal Medicine 01/27/18 03/30/18 Blane Masters MD PCP - General Internal Medicine 03/31/18 06/27/24 Vishal Brock MD PCP - General Internal Medicine 06/28/24 documented as of this encounter
--- OUTSIDE RECORDS SUMMARY | 2025-08-27 19:01 | XMS_ITS | Encounter Summary ---
Author Organization [facility] Address [address] [place] [address] Care Team Providers Care Business Broker Name Role Phone Blane Masters MD Primary Care Provider Unava ilable Vishal Brock MD Primary Care Provider Unava ilable Encounter Details Date Type Department Care Team Description 04/10/2018 Pt. Non Urgent Medic al Question Adult Medicine [address] [address] Paola Ball MD Social History Tobacco Use [...] on filedocumented in this encounter Care Teams Business Broker Relationship Specialty Start Date End Date Blane Masters MD PCP - General Internal Medicine 03/31/18 06/27/24 Vishla Brock MD PCP - General Internal Medicine 06/28/24 documented as of this encounter
--- OUTSIDE RECORDS SUMMARY | 2025-08-27 19:01 | XMS_ITS | Encounter Summary ---
Author Organization [facility] Address [employer] [place] [address] Care Team Providers Care Saturator Name Role Phone Blane Masters MD Primary Care Provider Unava ilable Vishal Brock MD Primary Care Provider Unava ilable Encounter Details Date Type Department Care Team Description 04/20/2018 Deicer Element Winder Machine Report Medical Records [address] [place] [address] Kimberly Will, CHRIS Social History Tobacco Use [...] on filedocumented in this encounter Care Teams Saturator Relationship Specialty Start Date End Date Blane Masters MD PCP - General Internal Medicine 03/31/18 06/27/24 Vishal Brock MD PCP - General Internal Medicine 06/28/24 documented as of this encounter
--- OUTSIDE RECORDS SUMMARY | 2025-08-27 19:01 | XMS_ITS | Patient Health Record ---
Author Organization [facility] Address [address] [place] [address] Care Team Providers Care Dry Cell Tester Name Role Phone Олег Murphy MD Primary Care Provider Jack Kim [phone] Reason For Referral No Information Plan Of Treatment No Information Insurance Providers Payer Name Payer Address Payer Phone Subscriber Number Group Number Insured Name Patient Relationship to Insured Coverage Start Date Coverage End Date [facility] [address] [place] [phone] [id number] SARA PAGE Self - patient is the insured
--- OUTSIDE RECORDS SUMMARY | 2025-08-27 19:01 | XMS_ITS | Encounter Summary ---
Author Organization [facility] Address [facility] [place] [address] Care Team Providers Care Senior Product Analyst Name Role Phone Blane Masters MD Primary Care Provider Viktoriava Vishal Young MD Primary Care Provider Dariel galloway Encounter Details Date Type Department Care Team Description 05/13/2018 [facility] Medical Records [address] [place] [address] Jas Sunshine Social History Tobacco Use Types [...] on filedocumented in this encounter Care Teams Senior Product Analyst Relationship Specialty Start Date End Date Blane Masters MD PCP - General Internal Medicine 03/31/18 06/27/24 Vishal Brock MD PCP - General Internal Medicine 06/28/24 documented as of this encounter
--- OUTSIDE RECORDS SUMMARY | 2025-08-27 19:01 | XMS_ITS | Encounter Summary ---
Author Organization [facility] Address [address] [place] [address] Care Team Providers Care Clipper And Turner Name Role Phone Paola Ball MD Primary Care Provider Unavail able Blane Masters MD Primary Care Provider Vishal Leon MD Primary Care Provider Dariel galloway Encounter Details Date Type Department Care Team Description 03/22/2018 Pt. Non Urgent Medic al Question Adult Medicine [address] [address] Paola Ball MD Social History Tobacco Use [...] on filedocumented in this encounter Care Teams Clipper And Turner Relationship Specialty Start Date End Date Paola Ball MD PCP - General Internal Medicine 01/27/18 03/30/18 Blane Masters MD PCP - General Internal Medicine 03/31/18 06/27/24 Vishal Brock MD PCP - General Internal Medicine 06/28/24 documented as of this encounter
== END 2025-08-27 16:34 | disposition home or self-care (01) ==
LOC: HO.HMCH 15:24
PROVIDERS: PCP Internal Medicine; Visit Provider Internal Medicine
DX: M54.16 Radiculopathy, lumbar region (principal)

== ENCOUNTER → 2025-08-27 15:23 | Outpatient (BNVA) | payer OTHER, SELFPAY | PROVIDERS: PCP Internal Medicine; Visit Provider Internal Medicine | DX: M54.42 Lumbago with sciatica, left side (principal); M54.16 Radiculopathy, lumbar region; M79.605 Pain in left leg; M79.604 Pain in right leg; R53.1 Weakness | CPT/HCPCS: 96127; 99212 ==

== ENCOUNTER 2025-09-02 13:56 | Outpatient (AMB) | payer OTHER, SELFPAY ==
--- OUTSIDE RECORDS SUMMARY | 2023-08-19 08:27 | XMS_ITS | Continuity of Care Document ---
Author Organization [facility] Address [address] [place] [address] Phone Care Team Providers Care Business Analyst Ecommerce Name Role Phone Edward RIVAS FACS RVT [...] Providers Copied on Encounter [facility], [address] [place] [address] Dr [address]Mary [place], [id number], [place] tel:[phone] [facility] - [facility] No Information 3 Edward Gardiner. [address], [address], [place], [address], [place]. tel:[phone] Referring Provider: Vishal Brock MD, [address], [place], [address]. tel:[phone] [facility], [address] [place] [address] Dr [address]Mary [place], [id number], [place] tel:[phone] [facility] - [facility] Encounter for follow-up examination after completed treatment for conditions other than malignant neoplasmPain in left leg 3 Edward Gardiner. [address], [address], [place], [address], [place]. tel:[phone] Referring Provider: Vishal Brock MD, [address], [place], [address]. tel:[phone] Office/Outpt E&M Established 15 Mins [facility], [address] [place] [address] Dr [address]Suite Mary Alvarez MD, [id number], [place] tel:[phone] [facility] (idiopathic) with other complications of left lower extremity 3 Edward Gardiner. [address], [address], [place], [address], [place]. tel:[phone] Referring Provider: Vishal Brock MD, [address], [place], [address]. tel:[phone] Office/Outpt E&M Established 15 Mins [facility], [address] [place] [address] Dr [address] 1000Mary [place], [id number], [place] tel:[phone] [facility]tn w oth comp of bilateral low extrm 3 Edward RIVAS FACS RVT CARRIE Gardiner. [address], [address], [place], [address], [place]. tel:[phone] Referring Provider: Vishal Brock MD, [address], [place], [address]. tel:[phone] [place] [facility], [address] [place] [address] Dr [address] 1000Mary [place], [id number], [place] tel:[phone] [facility] - [place] No Information 3 Edward RIVAS FACS RVT CARRIE Gardiner. [address], [address], [place], [address], [place]. [phone] Referring Provider: Vishal Brock MD, [address], [place], [address]. tel:[phone] [facility], [address] [place] [address] Dr [address] 1000Mary [place], [id number], [place] tel:[phone] [facility] - [place] - [place] Encntr for f/u exam aft trtmt for cond oth than malig neoplmVenous insufficiency (chronic) (peripheral) 3 Edward RIVAS FACS RVT CARRIE Gardiner. [address], [address], [place], [address], [place]. [phone] Referring Provider: Vishal Brock MD, [address], [place], [address]. tel:[phone] [facility], [address] [place] [address] [address]Suite 1000Mary [place], [id number], [place] tel:[phone] [facility] - [place] - [place] Venous insufficiency (chronic) (peripheral) 3 Edward RIVAS FACS RVT CARRIE Gardiner. [address], [address], [place], [address], [place]. tel:[phone] Referring Provider: Vishal Brock MD, [address], [place], [address]. tel:[phone] [facility], [address] [place] [address] [address] 1000Mary [place], [id number], [place] tel:[phone] [facility] - [place] Venous insufficiency (chronic) (peripheral) 3 Edward RIVAS FACS T CARRIE Gardiner. [address], [address], [place], [address], [place]. [phone] Referring Provider: Vishal Brock MD, [address], [place], [address]. tel:[phone] [facility], [address] [place] [address] [address] 1000Mary [place], [id number], [place] tel:[phone] [facility] - [place] Varicose veins of right low extrm w oth complications 3 Maggy Nguyen . [address], [address], [place], [place], [address] , [place]. [phone] Referring Provider: Vishal Brock MD, [address], [place], [address]. tel:[phone] [facility], [address] [place] [address] [address]Suite 1000Mary [place], [id number], [place] tel:[phone] [facility] - [place] Encntr for f/u exam aft trtmt for cond oth than malig neoplmVenous insufficiency (chronic) (peripheral) 3 Edward RIVAS FACS T CARRIE Gardiner. [address], [address], [place], [address], [place]. [phone] Referring Provider: Vishal Brock MD, [address], [place], [address]. tel:[phone] [facility], [address] [place] [address] Dr [address] 1000Suite 1000Mary [place], [id number], [place] tel:[phone] [facility] - [place] Venous insufficiency (chronic) (peripheral) 3 Edward RIVAS FACS T CARRIE Gardiner. [address], [facility] [facility] [address], [place], [address], [place]. tel:[phone] Referring Provider: Vishal Brock MD, [address] [place] [address] Dr [address], [place], [address]. tel:[phone] [facility], [address], [place], [id number], [place] tel:[phone] [facility] - [facility] Venous insufficiency (chronic) (peripheral) 3 Edward RIVAS FACS T CARRIE Gardiner. [address], [address], [place], [address], [place]. tel:[phone] Referring Provider: Vishal Brock MD, [address] [place] [address] Dr [address], [place], [address]. tel:[phone] Family History Family Member Type Diagnosis Age At Onset No Information Payers Payer name Insurance type Covered republican ID Authorchada tirama(s) Medical Assistance [facility] [id number] Social History Type Description Quantity Date Captured [...]
--- NOTE | 2025-09-02 14:05 | A.OFFVIS_ITS ---
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 The pathology showed the following: Endometrium, curettage: Benign atrophic endometrium and benign endocervical glandular and squamous epithelium; no atypia or carcinoma The patient has family history of breast cancer with her mother at age of 46, TC lifetime breast cancer risk in 2021 was 21% [facility], [facility] Medical History (Updated 09/02/25 @ 14:23 by Jc Hernandez MD) At high risk for breast cancer Nicotine dependence, cigarettes, uncomplicated Irregular bleeding Fibroid Cervical spondylosis Heavy menses History of gastrointestinal stromal tumor (GIST) Situational depression Tinea Family history of breast cancer Low back pain Paresthesia of left upper extremity Epigastric pain Abdominal bloating Chest pain Umbilical pain Mild anemia Sinus pressure Problematic vaginal discharge Pain of left great toe Status post fall Major depressive disorder, recurrent, mild Hot flashes Venous insufficiency of both lower extremities Pure hypercholesterolemia SVT (supraventricular tachycardia) Cardiac arrhythmia Hx of esophageal ulcer Benign essential hypertension Vitamin D deficiency Bipolar disorder Alcoholism Obesity (BMI 30-39.9) Anxiety Bipolar 1 disorder Depression Surgical History History of breast augmentation Hx of nasal septoplasty History of incisional hernia repair Hx of colonoscopy Hx of section Hx of gastrostomy (~04/2002) Hx of endoscopy Family History Father Esophagus cancer, Onset Age: 63 Mother Breast cancer, Onset Age: 46 Maternal Grandfather Cancer Paternal Aunt Breast cancer Maternal Aunt Breast cancer Son MVA (motor vehicle accident) Social History Household Members: None Housing: House Are you a primary veterinarian laboratory animal care to a significant other at home: No Do you presently have visiting nurse or other home services: No Alcohol intake: current Alcohol intake frequency: a few times a week Comment: very occasional, once every few months Patient Tobacco Use Status: Current everyday Tobacco user Tobacco use type: Cigarette Cigarette Packs Per Day: 0.5 Cigarettes Per Day: 10 Years Smoked: rarely- occasional smoker e-Cigarette/Vaping Use: Never Used Second Hand Smoke Exposure: Yes service: No Current occupational status: employed Cognitive needs: No Hearing needs: No Vision needs: Yes (Glasses) Female Reproductive History Menstrual Age of Menarche: 14 Review of Systems Const All systems reviewed & are unremarkable except as noted in HPI and below Reports as per HPI and Reports no additional complaints GI Reports no additional complaints Reports no additional complaints Physical Exam Vital Signs: Last Vital Signs BP 110/70 09/02/25 14:07 BMI result Body Mass Index 33.1 Assessment & Plan Assessment & Plan (1) Endometrial thickening on ultrasound: Code(s): R93.89 - Abnormal findings on diagnostic imaging of other specified body structures Category: Medical Plan: Discussed with the patient the results of the pathology. Discussed with the patient the sensitivity, specificity, positive and negative predictive value, of endometrial biopsy in detecting endometrial pathology including but not limited to endometrial hyperplasia, cancer and other pathology; instructed the patient to call in case vaginal bleeding, the next step will be to proceed with further endometrial sampling evaluation to rule out endometrial pathology. All questions answered and the patient verbalized understanding and agreed with the plan. (2) Breast cancer screening, high risk patient: Code(s): Z12.39 - Encounter for other screening for malignant neoplasm of breast Category: Medical Plan: Discussed with the patient her increased risk for Breast ca. The lifetime risk of breast cancer based on the Tyrer-Cuzick Model is 21% in 2021 Recommended Intensification of breast Cancer screening with annual MRI breast in addition to annual mammogram and MRI alternating every 6 months. Mammogram done recently , Breast MRI ordered Will refer to Dr Chanel for possible Genetic Ca counseling and possible testing, in addition to counseling regarding Chemoprevention strategies All questions answered, the patient verbalized understanding and agreed with the plan Orders: Orders MR breast BI wo/w con Today Z80.3 - Family history of malignant neoplasm of breast Referrals General Surgery Referral Z91.89 - Other specified personal risk factors, not elsewhere classified Coding Level of Care Code Est Pt Level 3 (18412) Diagnoses Endometrial thickening on ultrasound R93.89 Breast cancer screening, high risk patient Z12.39
[2025-09-02 14:07] VITALS: BP 110/70; BMI 33.1
== END 2025-09-02 14:27 | disposition home or self-care (01) ==
LOC: HO.HWS 13:56
PROVIDERS: PCP Internal Medicine; Visit Provider Obstetrics & Gynecology
DX: R93.89 Abnormal findings on diagnostic imaging of other specified body structures (principal); Z12.39 Encounter for other screening for malignant neoplasm of breast
CPT/HCPCS: 99213

== ENCOUNTER → 2025-09-02 13:56 | Outpatient (BNVA) | payer OTHER, SELFPAY | PROVIDERS: PCP Internal Medicine; Visit Provider Obstetrics & Gynecology | DX: Z48.816 Encounter for surgical aftercare following surgery on the genitourinary system (principal); R93.89 Abnormal findings on diagnostic imaging of other specified body structures; Z12.39 Encounter for other screening for malignant neoplasm of breast; Z80.3 Family history of malignant neoplasm of breast; Z91.89 Other specified personal risk factors, not elsewhere classified | CPT/HCPCS: 99212 ==

== ENCOUNTER 2025-09-13 07:24 | Outpatient (AMB) | payer OTHER, SELFPAY ==
--- NOTE | 2025-09-06 08:54 | MHC.OFFVIS ---
Intake Visit Reasons: Current Smoker Allergies morphine Adverse Reaction (Unknown, Verified 09/02/25 14:08) withdrawals/sweats HPI HPI Current Smoker: Details: Initial telehealth visit for this 55yo smoker with a 21PYH. Patient started smoking at age 13 for 42 years at 1/2ppd. . Denies marijuana use. Denies second hand smoke exposure. Denies exposure to chemicals or substances like asbestos. . Denies known family history of lung cancer. Denies personal history of cancers. Denies chest CT in last year. . Denies recent travel outside the [place]. Denies recent respiratory illness or recent hospitalization for respiratory issues. History testing positive for COVID. x4. Admits receiving COVID Vaccine.x2. . Denies fever, chills, new/worsening cough, hemoptysis, hoarseness or dysphagia. Denies significant chest pain, significant dyspnea or unintentional weight loss. Patient Lung Cancer Screening Questionnaire reviewed with patient by provider. . Shared Decision Making Completed. Patient meets criteria. Discussed in detail with patient, the risk vs benefit of LDCT screening. Patient consents to proceed with scan. Discussed smoking cessation. [facility] Medical History (Updated 09/06/25 @ 09:04 by Gabi Ramirez PA-C) At high risk for breast cancer Nicotine dependence, cigarettes, uncomplicated Irregular bleeding Fibroid Cervical spondylosis Heavy menses History of gastrointestinal stromal tumor (GIST) Situational depression Tinea Family history of breast cancer Low back pain Paresthesia of left upper extremity Epigastric pain Abdominal bloating Chest pain Umbilical pain Mild anemia Sinus pressure Problematic vaginal discharge Pain of left great toe Status post fall Major depressive disorder, recurrent, mild Hot flashes Venous insufficiency of both lower extremities Pure hypercholesterolemia SVT (supraventricular tachycardia) Cardiac arrhythmia Hx of esophageal ulcer Benign essential hypertension Vitamin D deficiency Bipolar disorder Alcoholism Obesity (BMI 30-39.9) Anxiety Bipolar 1 disorder Depression Surgical History History of breast augmentation Hx of nasal septoplasty History of incisional hernia repair Hx of colonoscopy Hx of section Hx of gastrostomy (~04/2002) Hx of endoscopy Family History Father Esophagus cancer, Onset Age: 63 Mother Breast cancer, Onset Age: 46 Maternal Grandfather Cancer Paternal Aunt Breast cancer Maternal Aunt Breast cancer Son MVA (motor vehicle accident) Social History Household Members: None Housing: House Are you a primary home care aide to a significant other at home: No Do you presently have visiting nurse or other home services: No Alcohol intake: current Alcohol intake frequency: a few times a week Comment: very occasional, once every few months Patient Tobacco Use Status: Current everyday Tobacco user Tobacco use type: Cigarette Cigarette Packs Per Day: 0.5 Cigarettes Per Day: 10 Years Smoked: rarely- occasional smoker e-Cigarette/Vaping Use: Never Used Second Hand Smoke Exposure: Yes service: No Current occupational status: employed Cognitive needs: No Hearing needs: No Vision needs: Yes (Glasses) Female Reproductive History Menstrual Age of Menarche: 14 Telehealth Telehealth Telehealth Platform: Telephone Location of provider rendering services: practice address Location of patient: address on file Patient Identification confirmed using: Name, : Yes Telehealth method: voice only Patient verbally consented to treatment: Yes Patient verbally consented to billing insurance company: Yes Patient informed of any privacy concerns related to visit: Yes Minutes spent on Phone/Video with Pt.: 15 Assessment & Plan Assessment & Plan (1) Nicotine dependence, cigarettes, uncomplicated: Comment: (onset 16yo, 1/2ppd x 42yrs, 21pyh) Code(s): F17.210 - Nicotine dependence, cigarettes, uncomplicated Category: Medical Plan: - SDM visit completed today via phone. Scheduled for LDCT 09/13/25. - Patient meets criteria for LDCT for lung cancer screening purposes and is asymptomatic. - Smoking cessation counseling offered. Patients can always call [phone]. - Will arrange for a LDCT scan of the chest for screening purposes at [facility]. - Risks, benefits, and alternatives were discussed in detail and the patient agrees to proceed. - Risks discussed include but are not limited to: radiation exposure, anxiety during testing and while awaiting results, false negatives, false positives and possibility of additional intervention such as further imaging or surgical procedures for benign disease. - Benefits are obviously detection of lung cancer at an early stage which can lead to improved outcomes. - Discussed the importance of screening program compliance with adherence to yearly LDCT scan as scheduled - or sooner interval scans for personalized screening regimen. - Discussed follow up plan. Our office will send a letter discussing results and if needed set up phone call and office visit based on CT findings. - Patient educated on results categorization and the management decisions for suspicious findings potentially found on the screening LDCT scan. Any patient with a Lung RADS score of 3 or 4 will be reviewed by a multidisciplinary team at [facility] to form a plan of action in regards to scan findings. - If further work up is warranted for a suspicious lung finding this will be followed by the Lung Cancer Screening program in conjunction with the Thoracic Surgery Department at [facility]. - A copy of the office note and LDCT will be sent to the patient's PCP - as well as documentation on any associated further plans of care. - Incidental findings on LDCT are the PCP's responsibility. These findings are indicated with an S finding on the LDCT Assessment. A note discussing the findings will be sent to the PCP who is then responsible for further management. - All questions answered.? Coding Level of Care Code Lung Cancer Screening G0296 Diagnoses Nicotine dependence, cigarettes, uncomplicated F17.210
== END 2025-09-13 07:32 ==
LOC: HO.HPS 07:24
PROVIDERS: PCP Internal Medicine; Visit Provider Physician Assistant Medical
DX: F17.210 Nicotine dependence, cigarettes, uncomplicated (principal)
CPT/HCPCS: G0296

== ENCOUNTER 2025-09-13 11:02 | Outpatient (REF) | payer OTHER, SELFPAY ==
--- NOTE | ~2025-09-13 | CT_ITS ---
EXAMINATION: CT LUNG SCREENING HISTORY: F17.210 - Nicotine dependence, cigarettes, uncomplicated TECHNIQUE: Low dose axial images were obtained from the sternal notch to upper abdomen without IV contrast per standard departmental protocol. Sagittal and coronal reformatted images were also obtained and reviewed. One or more of the following techniques was used for dose reduction: Automated exposure control, adjustment of the mA and/or kV according to patient size, use of iterative reconstruction technique. DLP: 60 mGy-cm COMPARISON: Comparison is made with the prior examination dated 08/07/2017. FINDINGS: Lung nodules: No pulmonary nodules are identified. Emphysema: none Coronary Calcification: none Aortic Arch Calcification: none Potentially Significant Incidentals : none Additional Chest Findings: There is no pleural or pericardial effusion. No mediastinal or axillary lymphadenopathy is identified. Visualized upper abdomen: The visualized portions of the liver, spleen, and adrenals have an unremarkable unenhanced appearance. CT/CT lung screening IMPRESSION: No suspicious pulmonary nodules are identified. LUNG-RADS ASSESSMENT: Lung-RADS 1: Negative MANAGEMENT: Continue annual screening with LDCT in 12 months Category S: N/A Electronically signed by: Jack Guzman MD 09/13/2025 11:31 AM [facility]
== END 2025-09-13 11:03 | disposition home or self-care (01) ==
LOC: HO.CT 11:02
PROVIDERS: PCP Internal Medicine; Visit Provider Physician Assistant Medical
DX: Z12.2 Encounter for screening for malignant neoplasm of respiratory organs (principal); F17.210 Nicotine dependence, cigarettes, uncomplicated
CPT/HCPCS: 71271; G0296

== ENCOUNTER → 2025-09-13 11:03 | Outpatient (BNV) | payer OTHER, SELFPAY | PROVIDERS: PCP Internal Medicine; Visit Provider Radiology Diagnostic Radiology | DX: F17.210 Nicotine dependence, cigarettes, uncomplicated (principal) | CPT/HCPCS: 71271 ==

== ENCOUNTER 2025-09-17 11:09 | Outpatient (AMB) | payer OTHER, SELFPAY ==
--- NOTE | 2025-09-17 11:19 | A.OFFPSYCH_ITS ---
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 Allergies morphine Adverse Reaction (Unknown, Verified 09/02/25 14:08) withdrawals/sweats Medication List - Last Reconciled 09/17/25 by Betty Kumar APRN albuterol sulfate 90 mcg/actuation (ProAir HFA) 2 puffs inhalation Q6H PRN 30 days cholecalciferol (vitamin D3) 25 mcg PO DAILY 90 days cyclobenzaprine 10 mg PO TID PRN 30 days dextroamphetamine-amphetamine 5 mg ER (Adderall XR) 5 mg PO QAM dicyclomine 10 mg PO QID PRN lansoprazole 30 mg PO DAILY 90 days lorazepam 1 mg PO Q12H PRN 90 days magnesium oxide 400 mg PO DAILY metoprolol succinate ER 50 mg PO DAILY naltrexone 50 mg PO DAILY sertraline 100 mg PO BID sucralfate (Carafate) 1 g PO DAILY HPI- Psychiatric Chief Complaint: follow up HPI Narrative: pt reports compliance with medications; no etoh use since 06/06/25. she reports the adderall helps her be more focused but wears off after a few hours. She denies side effects. She reports still experiencing intermittent triggers to intense grief over past several weeks. She is meeting with a therapist. She was recently approved fro disability. 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 pt denies SI or HI. No reported side effects from meds. She reports depression and anxiety are better; she reports concentration, focus, motivation and executive functioning is difficult; she forget details. She reports being impulsive at times; she has trouble sitting still; she is always on the go. She reports lifelong ADHD symptoms; she struggled in school. she never got any treatment; Her teachers would tell her she talked too much. She struggled academically. she is late to appointments; she is forgetful and scattered. Past Psychiatric History: no IPLOC; outp tx with prozac and ativan. hx of heavy alcohol use in past Subjective Subjective Medication Compliance: Yes Side effects from medications: No Review of Systems Medical Review of Systems: unchanged Mental Status Exam Mental Status Exam Patient Appearance: Well Grooomed Patient Orientation: Person, Place, Time and Situation Level of Consciousness: Awake, Appropriate, Restless and Alert Patient Behavior: Appropriate, Talkative, Hyperactive and Cooperative Mood Description: Anxious and Sad Affect Description: Anxious and Sad Patient Cognition Impaired: No Ability to Follow Directions: Good Speech Pattern: Clear, Coherent and Rambling Memory Description: Intact Hallucinations: None Delusions: Not Present Thought Process: Intact and Distracted Thought Content: positive for Intact and positive for [place] Judgement: Good Assessment and Plan Assessment & Plan (1) Complicated bereavement: Status: Acute Code(s): F43.21 - Adjustment disorder with depressed mood (2) Major depressive disorder, recurrent, mild: Status: Acute Code(s): F33.0 - Major depressive disorder, recurrent, mild (3) DARBY (generalized anxiety disorder): Status: Acute Code(s): F41.1 - Generalized anxiety disorder (4) PTSD (post-traumatic stress disorder): Status: Acute Code(s): F43.10 - Post-traumatic stress disorder, unspecified (5) ADHD (attention deficit hyperactivity disorder), combined type: Status: Acute Code(s): F90.2 - Attention-deficit hyperactivity disorder, combined type Plan Increase adderall xr to 10mg daily in am Continue zoloft to 150 mg daily continue naltrexone 25mg-50mg daily return in 4 weeks Medications: New dextroamphetamine-amphetamine 10 mg ER (Adderall XR) Partial Fill upon patient request. 10 mg PO QAM 30 caps 0RF Changed From sertraline 100 mg PO BID 60 tabs 1RF To sertraline 150 mg (1.5 x 100 mg) PO BID 45 tabs 2RF Refilled naltrexone 50 mg PO DAILY 30 tabs 1RF Discontinued dextroamphetamine-amphetamine 5 mg ER (Adderall XR) Partial Fill upon patient request. Discontinued Reason: Doctor's Order 5 mg PO QAM 30 caps 0RF Counseling and coordination of Care Pt. Self Management counseling: Exercise, Mod caffeine/ETOH intake, Nutrition education and improvement, Sleep hygiene, Behavior activation and Greif counseling Medication management counseling: Effectiveness, Side effects, Dosing range, Duration, Drug interaction and Adherence Diagnosis and Prognosis Counseling: Accuracy of diagnosis, Prognosis over time, Impact of diagnosis on life functions, Impact of family relationship, Problematic behaviors secondary to diagnosis and Adequacy of current interventions Details: I spent 34 minutes reviewing the record, seeing the patient and documenting in the medical record. Counseling provided to the patient/caregiver as outlined below. Addressed patient/caregiver concerns regarding current medication regime including effective adherence. Addressed patient/caregiver concerns regarding diagnosis and prognosis including accuracy of diagnosis, prognosis over time, impact of diagnosis. Addressed patient/caregiver concerns regarding impact of recent stressors. [facility] Medical History (Updated 09/06/25 @ 09:04 by Gabi Ramirez PA-C) At high risk for breast cancer Nicotine dependence, cigarettes, uncomplicated Irregular bleeding Fibroid Cervical spondylosis Heavy menses History of gastrointestinal stromal tumor (GIST) Situational depression Tinea Family history of breast cancer Low back pain Paresthesia of left upper extremity Epigastric pain Abdominal bloating Chest pain Umbilical pain Mild anemia Sinus pressure Problematic vaginal discharge Pain of left great toe Status post fall Major depressive disorder, recurrent, mild Hot flashes Venous insufficiency of both lower extremities Pure hypercholesterolemia SVT (supraventricular tachycardia) Cardiac arrhythmia Hx of esophageal ulcer Benign essential hypertension Vitamin D deficiency Bipolar disorder Alcoholism Obesity (BMI 30-39.9) Anxiety Bipolar 1 disorder Depression Surgical History History of breast augmentation Hx of nasal septoplasty History of incisional hernia repair Hx of colonoscopy Hx of section Hx of gastrostomy (~04/2002) Hx of endoscopy Family History Father Esophagus cancer, Onset Age: 63 Mother Breast cancer, Onset Age: 46 Maternal Grandfather Cancer Paternal Aunt Breast cancer Maternal Aunt Breast cancer Son MVA (motor vehicle accident) Social History Household Members: None Housing: House Are you a primary palliative care nurse practitioner to a significant other at home: No Do you presently have visiting nurse or other home services: No Alcohol intake: current Alcohol intake frequency: a few times a week Comment: very occasional, once every few months Patient Tobacco Use Status: Current everyday Tobacco user Tobacco use type: Cigarette Cigarette Packs Per Day: 0.5 Cigarettes Per Day: 10 Years Smoked: rarely- occasional smoker e-Cigarette/Vaping Use: Never Used Second Hand Smoke Exposure: Yes service: No Current occupational status: employed Cognitive needs: No Hearing needs: No Vision needs: Yes (Glasses) Social History: has good social support; work FT. 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
--- OUTSIDE RECORDS SUMMARY | 2025-09-17 14:44 | XMS_ITS | Patient Health Record ---
Author Organization [facility] Address [address] [place] [address] Care Team Providers Care Pension Administrator Name Role Phone Олег Murphy MD Primary Care Provider Jack Kim [phone] Reason For Referral No Information Plan Of Treatment No Information Insurance Providers Payer Name Payer Address Payer Phone Subscriber Number Group Number Insured Name Patient Relationship to Insured Coverage Start Date Coverage End Date [facility] [address] [facility] [place] [phone] [id number] SARA PAGE Self - patient is the insured
--- OUTSIDE RECORDS SUMMARY | 2025-09-17 14:44 | XMS_ITS | Patient Health Record ---
Author Organization [facility] katherine Ybarra Address [address] [place] [address] Care Team Providers Care Disassembler Product Name Role Phone Jeffrey RIVAS, Олег Primary Care Provider Albert Fisher Unavailable [phone] Allergies Allergen (clinical drug ingredient) Drug/Non Drug [...] Status W/U Status Risk Notes Problem Bursitis (97234448) Bursitis (727.3) Active confirmed Problem Myositis (90726289) Myositis (729.1) Active confirmed Problem Pain in limb (70550417) Pain in Limb (729.5) Active confirmed Problem Plantar fasciitis (613695824) Plantar Fasciitis (728.71) Active confirmed Plan Of Treatment Pending Test Test Name Order Date X ray : Foot, left 2V 07/09/2013 X ray : Foot, right 2V 07/09/2013 Insurance Providers Payer Name Payer Address Payer Phone Subscriber Number Group Number Insured Name Patient Relationship to Insured Coverage Start Date Coverage End Date [facility] [address] [place] [address] [phone] [id number] Monserrat Moore Self - patient is the insured Medical (General) History Medical History History ICD Code anxiety Hiatal hernia reflux chicken pox Surgical History Surgery Date(Month/Year) tumor removal from esophagus 2005 section 1994, 1997
--- OUTSIDE RECORDS SUMMARY | 2025-09-17 14:44 | XMS_ITS | Clinical Summary ---
Author Organization [facility] Address [address] [place] [address] Phone Care Team Providers Care Financial Services Professional Name Role Phone Vishal Brock MD Primary [...] age to complete this topic Insurance [facility] [employer] Care Teams Financial Services Professional Relationship Specialty Start Date End Date Vishal Brock MD [address] [place] [address] [address] Harkins PCP - General 06/28/24
== END 2025-09-17 11:47 | disposition home or self-care (01) ==
LOC: HO.HOP 11:09
PROVIDERS: PCP Internal Medicine; Visit Provider Clinical Nurse Specialist Psychiatric/Mental Health
DX: F43.21 Adjustment disorder with depressed mood (principal); F33.0 Major depressive disorder, recurrent, mild; F41.1 Generalized anxiety disorder; F43.10 Post-traumatic stress disorder, unspecified; F90.2 Attention-deficit hyperactivity disorder, combined type
CPT/HCPCS: 99214

== ENCOUNTER → 2025-09-17 11:09 | Outpatient (BNVA) | payer OTHER, SELFPAY | PROVIDERS: PCP Internal Medicine; Visit Provider Clinical Nurse Specialist Psychiatric/Mental Health | DX: F43.21 Adjustment disorder with depressed mood (principal); F33.0 Major depressive disorder, recurrent, mild; F41.1 Generalized anxiety disorder; F43.10 Post-traumatic stress disorder, unspecified; F90.2 Attention-deficit hyperactivity disorder, combined type; Z79.899 Other long term (current) drug therapy | CPT/HCPCS: 99212 ==